=== PATIENT | male | born 1945 | race Caucasian/White ===

== ENCOUNTER → 2019-06-22 | Outpatient (CLI) | payer SELFPAY | PROVIDERS: Family Provider Internal Medicine; Visit Provider Urology | DX: Z87.442 Personal history of urinary calculi (principal); N20.1 Calculus of ureter | CPT/HCPCS: 74018 ==

== ENCOUNTER 2019-07-16 11:32 | Day surgery (SDC) | payer OTHER, SELFPAY ==
[2019-07-15 11:45] VITALS: BMI 43.0
--- NOTE | 2019-07-15 11:52 | ECG_ITS ---
Measurements Intervals [place] Rate: 69 P: 54 WA: 173 QRS: -24 QRSD: 108 T: 6 QT: 394 QTc: 424 SINUS RHYTHM BORDERLINE LEFT AXIS DEVIATION [QRS AXIS < -20] NONSPECIFIC ST & T-WAVE ABNORMALITY Compared to ECG 01/20/2019 16:44:49 T-wave abnormality now present Electronically Signed On 07-15-2019 15:30:18 WELD LAY OUT WORKER by Kyle Álvarez M.D. [email or web address]
--- NOTE | 2019-07-15 12:15 | ANES.PREANES ---
Pre-Anesthetic Assessment Pre-Anesthetic Assessment: Height/Weight: Height 1.7 m Weight 124.738 kg Preop Diagnosis: Obstructing left renal calculus Proposed Procedure: Operation Date: 07/16/19 13:00 Proposed Procedures p ESWL 14526 N20.0(Not Applicable) - Jorge Iglesias MD Social: Packs per day: 2 Pack years: 30 Comment: quit 40 Exam: Pre-Anes Outpt Exam: alert, oriented x 3, clear to auscultation bilaterally and regular rate & rhythm Airway: Submandibular: WNL Cervical ROM: WNL MP: 2 Dentition: False Pulmonary: Pulmonary: COPD Comments: marked BAUTISTA Home 02 @ 2lpm for years ERUM with CPAP rx'd for years CV/HEM: CV/HEM: CAD and HTN Comments: CABG '15 Rx'd x 5 y CHF : Comments: stones GI: GI: GERD Metabolic: Comments: rx'd 5y, does not follow Data Anesthesia Cardiac Studies: No Data to Display
[2019-07-16] VITALS (8 sets, daily range): BP systolic 133–154; BP diastolic 70–90; PULSE 56–74; RESP 14–18; TEMP 36.4–36.7; O2SAT 91–95
--- NOTE | 2019-07-16 11:14 | XR_ITS ---
WS: [id number] ABDOMEN: SUPINE FILM HISTORY: kidney stone COMPARISON: 06/22/2019 and 06/17/2019 Normal bowel gas pattern. Advanced degenerative changes in the spine. Bridging marginal osteophytes a nd disc space narrowing. Mild bilateral SI joint and hip joint disease. Right kidney: No renal or ureteral stone identified. Left kidney: No renal or ureteral stone identified. Previously described renal stone at the LEFT rosa l pelvis is not identified radiographically. XR/XR KUB [id number] IMPRESSION: No renal or ureteral calcifications identified radiographically.
[2019-07-16] MEDS: sodium chloride 0.9% 1,000 ML 30 ML IV (12:20)
[2019-07-16 12:46] LABS: Glucose Point of Care 132 mg/dL (70-110)
--- NOTE | 2019-07-16 12:55 | ANES.PREANES ---
Pre-Anesthetic Assessment Pre-Anesthetic Assessment: Height/Weight: Height 1.7 m Weight 124.738 kg Temp Pulse Resp BP Pulse Ox 97.5 F L 74 16 154/90 93 07/16/19 12:01 07/16/19 12:01 07/16/19 12:01 07/16/19 12:01 07/16/19 12:01 Preop Diagnosis: Obstructing left renal calculus Proposed Procedure: Operation Date: 07/16/19 13:00 Proposed Procedures p ESWL 03236 N20.0(Not Applicable) - Jorge Iglesias MD Last intake: Intake Last Liquid Date 07/16/19 Last Liquid Time 05:30 Last Solid Date 07/15/19 Last Solid Time 18:00 Social: Social History: No alcohol and No tobacco Exam: Pre-Anes Outpt Exam: alert, oriented x 3, clear to auscultation bilaterally and regular rate & rhythm Airway: Submandibular: WNL Cervical ROM: WNL MP: 3 Dentition: Full History/ROS: No significant history except as noted Pulmonary: Pulmonary: COPD, BAUTISTA, Sleep apnea and SOB CV/HEM: CV/HEM: CAD, CHF, HTN and OR : Comments: kidney stones Hepatic: Hepatic: None reported GI: GI: GERD (occ) Metabolic: Metabolic: DM, Hyperlipidemia and Morbid obesity Musc/skel: Musc/skel: OA/DJD Neuropsych: Neuropsych: Neuropathy (feet and hands) Anesthetic Plan: ASA status: IV Anesthesia: Anesthesia Evaluation and General Risk of > 500 ml blood loss (7ml/kg in children): No Meds/Allergies Current Medications: Current Medications Generic Name Dose Route Start Last Admin Trade Name Freq PRN Reason Stop Dose Admin Sodium Chloride 1,000 mls @ 30 ml s/hr 07/16/19 11:30 07/16/19 12:20 Sodium Chloride 0.9% IV 07/17/19 11:29 30 mls/hr .Q24H VIRGIL Administration PFSH Anesthesia PFSH: Medical History Congestive heart failure (Acute) COPD (chronic obstructive pulmonary disease) (Acute) Diabetes type 2, uncontrolled (Acute) High cholesterol (Acute) History of kidney stones (Acute) Hx of chest wall injury (Acute) Neuropathy (Acute) On home O2 (Acute) Sleep apnea (Acute) Surgical History History of quadruple bypass (Acute) Hx of lithotripsy (Acute) Data Anesthesia Other Labs: Laboratory Results - last 48 hr 07/16/19 12:12 POC Glucose 132 Cardiac Studies: No Data to Display
--- NOTE | 2019-07-16 13:36 | PM.HPUD ---
H&P update H&P Update: DATE OF SURGERY/PROCEDURE: 07/16/19 DATE H&P PERFORMED: 06/22/19 PLANNED PROCEDURE: Operation Date: 07/16/19 13:00 Proposed Procedures p ESWL 42243 N20.0(Not Applicable) - Jorge Iglesias MD Full H&P HPI: PRIMARY INDICATION/DIAGNOSIS FOR SURGICAL PROCEDURE: Symptomatic left renal pelvic stone with obstructive changes, radio lucent PLANNED PROCEDURE: Cystoscopy, left retrograde ureteropyelogram, extracorporeal shockwave lithotripsy to left renal pelvic stone, ureteral stent placement HPI: Symptomatic left renal pelvic stone. See H&P for full detail ROS: ROS: No chest pain, shortness of breath, fever or chills. No change in status since H&P. Medications/Allergies: Current Medications: Current Medications Generic Name Dose Route Start Last Admin Trade Name Freq PRN Reason Stop Dose Admin Sodium Chloride 1,000 mls @ 30 ml s/hr 07/16/19 11:30 07/16/19 12:20 Sodium Chloride 0.9% IV 07/17/19 11:29 30 mls/hr .Q24H VIRGIL Administration Perinent History: Medical/Surgical History: Medical History (Updated 07/16/19 @ 12:56 by Ezekiel Boggs MD) Congestive heart failure (Acute) COPD (chronic obstructive pulmonary disease) (Acute) Diabetes type 2, uncontrolled (Acute) High cholesterol (Acute) History of kidney stones (Acute) Hx of chest wall injury (Acute) Neuropathy (Acute) On home O2 (Acute) Sleep apnea (Acute) Pertinent Exam Findings: PHYSICAL EXAM: alert, oriented x 3 and clear to auscultation bilaterally (Unlabored respiration.)
[2019-07-16] MEDS: levofloxacin-dextrose 5 % 500 MG/100 ML PREMIX 100 MG IV (13:40)
--- NOTE | 2019-07-16 13:40 | PM.OP ---
Operative Report Date of procedure: 07/16/19 Pre-op Diagnosis: Obstructing left renal calculus Post-op diagnosis: same Procedure Done: Cystoscopy, left retrograde ureteropyelogram, extracorporeal shockwave lithotripsy to left renal calculus, left ureteral stent placement Implants: Left ureteral stent Pathology: none sent Surgeon: Jorge Iglesias Cashier Courtesy Booth: Lithotripsy instructional media services technician: Jorden Caicedo Anesthesia: General Estimated blood loss: None Complications: None Condition: stable Disposition: PACU
[2019-07-16] MEDS: iohexol 300 mg/mL 50 mL Btl (OR ONLY) XX (14:15)
[2019-07-16] MEDS: lidocaine 2% Urojet 20 mL TOPICAL (14:20)
--- NOTE | 2019-07-16 15:57 | P.OP_ITS ---
Operative Report Date of procedure: 07/16/19 Pre-op Diagnosis: Obstructing left renal calculus Pre-op Diagnosis: Panurethral stricture disease impassable without dilation Post-op diagnosis: same Procedure Done: 1. Cystoscopy with urethral dilation 2. Left retrograde ureteropyelogram 3. Extracorporeal shockwave lithotripsy to large uric acid left renal calculus 4. Left ureteral stent placement (7 Turkmen by 26 cm double-pigtail with string attached distally) Implants: Left ureteral stent Specimens removed/disposition: None Pathology: none sent Surgeon: Jorge Iglesias Executive Search Consultant: Lithotripsy restaurant maintenance technician: Jorden Caicedo Anesthesia: General Estimated blood loss: Less than 30 cc Urine output: Not measured Findings: 1. Severe panurethral stricture disease requiring dilation with Amplatz sounds 2. Large left renal pelvic stone with excellent response to 3000 shockwaves 3. Left ureteral stent left indwelling at the completion of the procedure Condition: stable Disposition: PACU Brief History: Ambrose is a very pleasant 73-year-old white male with a history of recurrent urethral stricture disease found to be impassable on multiple occasions without rigorous dilation and history of stones with recent discovery of a large left UPJ obstructing renal calculus. Admitted now for treatment of the stone with anticipation of urethral dilation. Procedure: After routine preoperative evaluation examination and obtaining of informed consent he was taken to the operating suite on 07/15/2019 where general anesthesia was administered without difficulty after appropriate timeout was performed, SCDs confirmed to be functioning, preoperative antibiotics administered, beta-vee protocol confirmed. Prepped and draped in usual sterile fashion in dorsolithotomy position pain careful attention to avoiding pressure points. The 17 Turkmen cystoscope was advanced under videoscopy into the urethra but could only be passed about two th[address] the way up before reaching a level of stricture that could not be manipulated. The 17 Turkmen cystoscope was exchanged for 7 Turkmen offset semirigid ureteroscope which could be advanced although through tightly restrictive strictures into the bladder. The orifices could not be easily identified and for that reason it was decided to dilate the urethra to get a better look with a regular cystoscope. Flexible tip guidewire was advanced through the ureteroscope into the bladder and the scope was removed. The urethra was then dilated with Amplatz renal dilators beginning at 8 Turkmen and advancing to 20 Turkmen. The first 3 dilators 8, 10, and 12 were passed directly over the wire. The remainder were passed over the snake. Each passage was accompanied with fluoroscopy confirming appropriate position over the wire. The 17 Turkmen cystoscope was then advanced over the wire into the bladder through the now well dilated urethra. The ureteral orifices were identified. He did have some small stones in the bladder which were flushed out through the scope. Flexible tip guidewire was advanced up the left ureter easily up into the renal pelvis area and an open ureteral catheter was then advanced over the guidewire after the 17 Turkmen scope was removed. In the area estimated to be the kidney the wire was removed and the open-ended ureteral catheter was left in place for a left retrograde ureteropyelogram which confirmed the stone in the renal pelvis with the catheter just below the UPJ. The stone appeared to be actually quite a bit larger than it had on the CT scan previously. He was taken out of [facility] at that point and placed in supine position with the bed slightly in Trendelenburg position. The shock head was positioned in the anterior position and the stone was easily identified with contrast surrounding it. With the patient in Trendelenburg position shockwave therapy was begun on the proximal aspect of the stone at a rate of 60 which was maintained throughout. A total of 3000 shocks were administered with real-time fluoroscopy utilized for positioning. The stone appeared to break up quite well with some migration of the particles into the upper pole. At the completion of the procedure while I could still see some pieces it was hard to say whether there was any significant large piece remaining. He was then reprepped and draped in the usual sterile fashion in dorsolithotomy position. Flexible tip guidewire was advanced through the open-ended ureteral catheter into the upper pole calyx and the ureteral catheter was removed. The cystoscope was advanced over the guidewire into the bladder for final inspection. There was some small amount of clot in the bladder which was flushed free. The scope was removed. A 7 Turkmen by 26 cm double-pigtail stent was then advanced under fluoroscopic guidance up the left ureter over the guidewire into appropriate position as confirmed via fluoroscopy of the upper and lower urinary tract. The wire was removed and the proximal and distal aspects were seen to curl in appropriate position. Attempt at catheter passage was unsuccessful with a 16 Turkmen straight tip and coud? tip and for that reason the scope was then repassed back into the bladder and a guidewire placed which allowed passage of a 16 Turkmen [place] tip catheter with position confirmed with transient contrast in the balloon followed by withdrawing of the contrast and then placement of saline. Catheter placed to dependent drainage and procedure completed. The string on the distal end of the stent was shortened slightly. PLANS: 1. Maintain Flores catheter until early next week with voiding trial in the clinic 2. Maintain ureteral stent, initiate potassium citrate next week most likely, c onsider maintenance of stent and medical therapy with repeat CT scan at a point in the near future to assess for change.
--- NOTE | 2019-07-16 15:58 | SUR.PHASEI ---
1557 PATIENT TO PACU AT THIS TIME VIA [place]. RR EVEN AND UNLABORED. PLACED ON SIMPLE MASK AT 8L. PETERS CATH NOTED, HATHAWAY COLORED URINE NOTED.
--- NOTE | 2019-07-16 16:25 | SUR.PHASEI ---
1610 [facility] [employer] PATIENT ASSISTED TO BR FOR BM. GAIT STEADY. PATIENT A/OX3. RR EVEN AND UNLABORED. PETERS CATH IN PLACE, DRAINING HATHAWAY COLORED URINE.
== END 2019-07-16 17:30 | disposition home or self-care (01) ==
PROVIDERS: Family Provider Internal Medicine; PCP Internal Medicine; Visit Provider Urology
PROC: (CPT 50590; principal; 2019-07-16 13:00)
PROC: 0TJB8ZZ Inspection of Bladder, Via Natural or Artificial Opening Endoscopic (ICD-10-PCS; CPT 52000; 2019-07-16 13:00)
PROC: (CPT 52356; 2019-07-16 13:00)
PROC: (CPT 50605; 2019-07-16 13:00)
DX: N20.0 Calculus of kidney (principal); J44.9 Chronic obstructive pulmonary disease, unspecified; E11.40 Type 2 diabetes mellitus with diabetic neuropathy, unspecified; G47.30 Sleep apnea, unspecified; Z99.81 Dependence on supplemental oxygen; I11.0 Hypertensive heart disease with heart failure; I50.9 Heart failure, unspecified; I25.10 Atherosclerotic heart disease of native coronary artery without angina pectoris; I25.2 Old myocardial infarction; E78.5 Hyperlipidemia, unspecified; E66.01 Morbid (severe) obesity due to excess calories; Z68.41 Body mass index [BMI] 40.0-44.9, adult; M19.90 Unspecified osteoarthritis, unspecified site; N40.1 Benign prostatic hyperplasia with lower urinary tract symptoms; N13.8 Other obstructive and reflux uropathy; Z87.891 Personal history of nicotine dependence; Z79.891 Long term (current) use of opiate analgesic; Z79.82 Long term (current) use of aspirin; Z79.4 Long term (current) use of insulin; Z95.1 Presence of aortocoronary bypass graft
CPT/HCPCS: 52356; 12345; 36416; 74018; 82962; 93005; 96365; C2625; J0330; J1956; J2405; J2704; J2710; J3010; J3490; J7030

== ENCOUNTER 2019-07-22 13:14 | Day surgery (SDC) | payer OTHER, MEDICARE, SELFPAY ==
[2019-07-21 14:40] VITALS: BMI 43.0
[2019-07-22] VITALS (7 sets, daily range): BP systolic 111–155; BP diastolic 58–107; PULSE 56–73; RESP 14–18; TEMP 36.2–36.4; O2SAT 88–100
--- NOTE | 2019-07-22 | SCC_ITS ---
Procedure Done: Cystoscopy, removal of left ureteral stent Left ureterorenoscopy, stone manipulation, 60.1 seconds of fluoroscopic guidance, for a cumulative dose of 34.71 mGy, was provided to Dr. Iglesias by the radiology department. C-arm images of the abdomen were saved for the patient's permanent record. [facility]
[2019-07-22 13:55] LABS: Glucose Point of Care 125 mg/dL (70-110)
--- NOTE | 2019-07-22 14:00 | ANES.PREANES ---
Pre-Anesthetic Assessment Pre-Anesthetic Assessment: Height/Weight: Height 1.7 m Weight 124.738 kg Temp Pulse Resp BP Pulse Ox 97.6 F 73 18 155/107 88 L 07/22/19 13:42 07/22/19 13:42 07/22/19 13:42 07/22/19 13:42 07/22/19 13:42 Preop Diagnosis: Left renal calculus Proposed Procedure: Operation Date: 07/22/19 14:45 Proposed Procedures p Cystoscopy 53674 82913 N20.0(Not Applicable) - MD re Mejia Ureteral Stent Removal(Left) - MD re Mejia Ureteroscopy(Not Applicable) - MD re Mejia poss Laser Lithotripsy(Not Applicable) - MD re Mejia Ureteral Stent Placement(Not Applicable) - Jorge Iglesias MD Last intake: Intake Last Liquid Date 07/22/19 Last Liquid Time 06:00 Last Solid Date 07/21/19 Last Solid Time 18:00 Social: Social History: No alcohol and No tobacco Exam: Pre-Anes Outpt Exam: alert, oriented x 3, clear to auscultation bilaterally and regular rate & rhythm Airway: Submandibular: WNL Cervical ROM: WNL MP: 3 Dentition: Full History/ROS: No significant history except as noted Pulmonary: Pulmonary: BAUTISTA and Sleep apnea CV/HEM: CV/HEM: CHF and HTN : Comments: KIDNEY STONES Hepatic: Hepatic: None reported GI: GI: None reported Metabolic: Metabolic: DM, Hyperlipidemia and Morbid obesity Musc/skel: Musc/skel: None reported Neuropsych: Neuropsych: None reported Anesthetic Plan: ASA status: III Anesthesia: Anesthesia Evaluation and General Risk of > 500 ml blood loss (7ml/kg in children): No PFSH Anesthesia PFSH: Social History Smoking and tobacco status: former smoker Alcohol intake: former Marital status: Current occupational status: retired Current gender identity: Male Data Anesthesia Other Labs: Laboratory Results - last 48 hr 07/22/19 13:52 POC Glucose 125 Cardiac Studies: No Data to Display
[2019-07-22] MEDS: sodium chloride 0.9% 1,000 ML 30 ML IV (14:44)
--- NOTE | 2019-07-22 14:50 | SC_ITS ---
WS: [id number] C-arm fluoroscopy in the OR for ureteral stent exchange, 07/22/2019 Clinical Data: stent exchange, stone Comparison: None. Fluoroscopy time: 60.1 seconds Findings: The ureteral stent extending from the left renal pelvis to the bladder is in good position. SC/C-arm FL for Urology Impression: Left ureteral stent successfully replaced.
--- NOTE | 2019-07-22 14:59 | PM.HPUD ---
H&P update H&P Update: DATE OF SURGERY/PROCEDURE: 07/22/19 DATE H&P PERFORMED: 07/19/19 PLANNED PROCEDURE: Operation Date: 07/22/19 14:45 Proposed Procedures p Cystoscopy 07861 91423 N20.0(Not Applicable) - MD re Mejia Ureteral Stent Removal(Left) - MD re Mejia Ureteroscopy(Not Applicable) - MD re Mejia poss Laser Lithotripsy(Not Applicable) - MD re Mejia Ureteral Stent Placement(Not Applicable) - Jorge Iglesias MD Full H&P Medications/Allergies: Current Medications: Current Medications Generic Name Dose Route Start Last Admin Trade Name Freq PRN Reason Stop Dose Admin Sodium Chloride 1,000 mls @ 30 ml s/hr 07/22/19 13:30 07/22/19 14:44 Sodium Chloride 0.9% IV 07/23/19 13:29 30 mls/hr .Q24H VIRGIL Administration Perinent History: Medical/Surgical History: Medical History (Updated 07/19/19 @ 12:21 by Jorge Iglesias MD) Congestive heart failure (Acute) COPD (chronic obstructive pulmonary disease) (Acute) Diabetes type 2, uncontrolled (Acute) High cholesterol (Acute) History of kidney stones (Acute) Hx of chest wall injury (Acute) Neuropathy (Acute) On home O2 (Acute) Sleep apnea (Acute) Urethral stricture, postoperative (Chronic) Severe panurethral stricture disease requiring multiple dilations and endoscopic treatment. Complicating treatment of stones Uric acid urolithiasis (Chronic) Family History: Family History (Updated 07/19/19 @ 08:58 by Lucita Good LPN) Mother , at age 76 COPD (chronic obstructive pulmonary disease) Father , at age 68-aortic aneurysm No problems noted. Social History: Social History Smoking and tobacco status: former smoker Alcohol intake: former Marital status: Current occupational status: retired Current gender identity: Male
--- NOTE | 2019-07-22 15:15 | PM.HPUD ---
H&P update H&P Update: DATE OF SURGERY/PROCEDURE: 07/22/19 DATE H&P PERFORMED: 07/19/19 PLANNED PROCEDURE: Operation Date: 07/22/19 14:45 Proposed Procedures p Cystoscopy 77082 [id number] N20.0(Not Applicable) - MD re Mejia Ureteral Stent Removal(Left) - MD re Mejia Ureteroscopy(Not Applicable) - MD re Mejia poss Laser Lithotripsy(Not Applicable) - MD re Mejia Ureteral Stent Placement(Not Applicable) - Jorge Iglesias MD Conscious Sedation: ADDITIONAL INFORMATION: No change in status from preop visit. Full H&P Medications/Allergies: Current Medications: Current Medications Generic Name Dose Route Start Last Admin Trade Name Freq PRN Reason Stop Dose Admin Sodium Chloride 1,000 mls @ 30 ml s/hr 07/22/19 13:30 07/22/19 14:44 Sodium Chloride 0.9% IV 07/23/19 13:29 30 mls/hr .Q24H VIRGIL Administration Perinent History: Medical/Surgical History: Medical History (Updated 07/19/19 @ 12:21 by Jorge Iglesias MD) Congestive heart failure (Acute) COPD (chronic obstructive pulmonary disease) (Acute) Diabetes type 2, uncontrolled (Acute) High cholesterol (Acute) History of kidney stones (Acute) Hx of chest wall injury (Acute) Neuropathy (Acute) On home O2 (Acute) Sleep apnea (Acute) Urethral stricture, postoperative (Chronic) Severe panurethral stricture disease requiring multiple dilations and endoscopic treatment. Complicating treatment of stones Uric acid urolithiasis (Chronic) Family History: Family History (Updated 07/19/19 @ 08:58 by Lucita Good LPN) Mother , at age 76 COPD (chronic obstructive pulmonary disease) Father , at age 68-aortic aneurysm No problems noted. Social History: Social History Smoking and tobacco status: former smoker Alcohol intake: former Marital status: Current occupational status: retired Current gender identity: Male
--- NOTE | 2019-07-22 15:16 | PM.OP ---
Operative Report Date of procedure: July 22, 2019 Pre-op Diagnosis: Left renal calculus, severe panurethral stricture disease Post-op diagnosis: same Procedure Done: Cystoscopy, removal of left ureteral stent Left ureterorenoscopy, stone manipulation, Implants: Left ureteral stent Pathology: Stone fragments Surgeon: Jorge Iglesias Anesthesia: General Estimated blood loss: Minimal Condition: stable Disposition: PACU Brief History: Ambrose is a very pleasant 73-year-old white male with a complex urologic history including severe pain urethral stricture disease with multiple dilations required in the past due to severe scarring. He also has a history of urolithiasis with multiple surgical interventions previously. Recently was found to have a large radiolucent stone in the left renal pelvis and underwent left ureteral stent placement and ESWL. This was severely complicated by his pain urethral stricture disease which required extensive dilation prior to being able to even access the bladder. The stone appeared to show good change. Postoperatively he was complaining of significant discomfort related to the urethral catheter. We reviewed that the stone would likely require additional treatment with ESWL based on its original size and that the urethral stricture if the catheter was removed prior to that time might scarred out enough to require further dilation again. An alternative approach was offered him and this included endoscopic evaluation of the remaining stone fragments but with possible laser lithotripsy. Because of that being done within a week of his initial treatment it was decided to leave the catheter in for further passive dilation of the urethra and making the access to the bladder and left ureter much easier. He is admitted now for that procedure. Procedure: After routine preoperative evaluation examination and obtaining of informed consent he was taken to the operating suite on 07/22/2019 where general anesthesia was administered without difficulty after appropriate timeout was performed, SCDs confirmed to be functioning, preoperative antibiotics administered, beta-vee protocol confirmed. Prepped and draped in usual sterile fashion in dorsolithotomy position pain careful attention to avoiding pressure points. 21 Panamanian cystoscope with 30 degree lens was introduced into the urethral meatus and advanced into the bladder videoscopy. The urethra was much much better as far as a conduit and a much better healed following prior dilation and passive dilation and healing with a catheter in place. A flexible tip guidewire was advanced next to the stent easily up the ureter curling in the area of the upper pole calyx. The stent was then removed with the string and then a second guidewire was advanced up the ureter. One was secured to the drapes as a safety wire and the other was utilized as a working wire. A 38 cm ureteral access sheath was then advanced over the working wire easily up the ureter to the mid/proximal ureter. The flexible ureteroscope was then advanced over the guidewire up the sheath. The renal pelvis was irrigated for better visualization. There were many many stone fragments none of them quite large but several too large to pass. The 275 ?m homing laser fiber was then utilized to fragment the stones into pieces small enough that should pass. Basket was utilized to remove the bulk of these. On final inspection there were no significant fragments identified. There was no severe active bleeding. The renal pelvic and calyceal mucosa looked healthy. The ureter was inspected as the scope was withdrawn. Bladder was irrigated. Cystoscope was then backloaded over the guidewire and a 7 Panamanian by 26 cm double-pigtail stent with string attached on the distal aspect was passed without difficulty and appropriate position as confirmed via fluoroscopy and cystoscopy. The string was shortened. Because of the excellent condition of the urethra no Flores catheter was left in place. Bladder was drained and the procedure completed. He tolerated procedure well without complications and was awakened in the operating room returned to the recovery room in stable condition. PLANS: 1. Continue potassium citrate for dissolution therapy review remaining uric acid fragments 2. Prescription for hydrocodone/APAP for postoperative discomfort 3. Follow-up in a couple weeks with consideration for stent removal. Further passive dilation will make passage of the remaining fragments much more likely
[2019-07-22] MEDS: levofloxacin-dextrose 5 % 500 MG/100 ML PREMIX 100 MG IV (15:18)
--- NOTE | 2019-07-22 17:49 | SUR.PHASEI ---
PT AWAKE ALERT TALKATIVE TO OPS VSS
[2019-07-27 15:52] LABS: Stone Source BLADDER STONES
== END 2019-07-22 19:08 | disposition home or self-care (01) ==
PROVIDERS: Family Provider Internal Medicine; PCP Internal Medicine; Visit Provider Urology
PROC: 0TJB8ZZ Inspection of Bladder, Via Natural or Artificial Opening Endoscopic (ICD-10-PCS; CPT 52000; principal; 2019-07-22 14:45)
PROC: (CPT 52310; 2019-07-22 14:45)
PROC: 0TJ98ZZ Inspection of Ureter, Via Natural or Artificial Opening Endoscopic (ICD-10-PCS; CPT 52351; 2019-07-22 14:45)
PROC: (CPT 52332; 2019-07-22 14:45)
PROC: (CPT 50605; 2019-07-22 14:45)
DX: N20.0 Calculus of kidney (principal); I50.9 Heart failure, unspecified; J44.9 Chronic obstructive pulmonary disease, unspecified; Z99.81 Dependence on supplemental oxygen; Z87.891 Personal history of nicotine dependence; Z79.891 Long term (current) use of opiate analgesic; Z79.4 Long term (current) use of insulin; E11.40 Type 2 diabetes mellitus with diabetic neuropathy, unspecified
CPT/HCPCS: 52332; 52352; 12345; 36416; 76000; 82365; 82962; 88300; C2625; J0330; J1885; J1956; J2001; J2405; J2704; J3010; J3490; J7030

== ENCOUNTER 2019-07-30 08:47 | Outpatient (CLI) | payer OTHER, SELFPAY ==
--- NOTE | 2019-07-30 09:00 | XR_ITS ---
WS: [id number] KUB, 07/30/2019 Clinical Data: URIC ACID UROLITHIASIS Comparison: C-arm fluoroscopy view of the left side of the abdomen, 07/22/2019. Findings: The left ureteral stent is in good position. The proximal portion appears to be curled in the left re nal pelvis and the distal portion is within the bladder. XR/XR KUB [id number] Impression: Satisfactory position of left ureteral stent.
== END 2019-07-30 08:48 | disposition home or self-care (01) ==
PROVIDERS: Family Provider Internal Medicine; PCP Internal Medicine; Visit Provider Urology
DX: N20.9 Urinary calculus, unspecified (principal); Z96.0 Presence of urogenital implants
CPT/HCPCS: 74018; 81001

== ENCOUNTER 2019-08-05 13:51 | Outpatient (CLI) | payer MEDICARE, SELFPAY ==
--- NOTE | 2019-08-05 | XR_ITS ---
WS: [id number] FINGER RIGHT TECHNIQUE: 3 views of the right finger CLINICAL INFORMATION: BILATERAL THUMB PAIN COMPARISON: None. FINDINGS: Right thumb is normal in appearance. No acute fractures. Normal anatomic alignment. Normal soft tissu es. XR/XR finger RT min 2V [id number] IMPRESSION: Normal right thumb.
--- NOTE | 2019-08-05 | XR_ITS ---
WS: [id number] FINGER LEFT TECHNIQUE: 3 views of the left First finger CLINICAL INFORMATION: BILATERAL THUMB PAIN COMPARISON: None. FINDINGS: Left thumb is normal in appearance. No acute fractures. Normal soft tissues. Normal anatomic alignmen t. Mild degenerative arthritis first CMC. XR/XR finger LT min 2V [id number] IMPRESSION: Normal left thumb.
== END 2019-08-05 13:52 | disposition home or self-care (01) ==
LOC: RADOUTREAD 08-06 07:46
PROVIDERS: Family Provider Internal Medicine; PCP Internal Medicine; Visit Provider Nurse Practitioner
DX: Z76.89 Persons encountering health services in other specified circumstances (principal)

== ENCOUNTER 2019-09-13 07:53 | Outpatient (CLI) | payer OTHER, SELFPAY ==
[2019-09-13 08:40] LABS: Blood Urea Nitrogen 9 mg/dL (8-23)
[2019-09-13] MEDS: iohexol 300 mg/mL 100 mL Btl IV (08:50)
--- NOTE | 2019-09-13 09:30 | CT_ITS ---
WS: [id number] CT ABDOMEN PELVIS TECHNIQUE: Noncontrast CT of the abdomen and contrast-enhanced CT of the abdomen and pelvis with lion nal and sagittal reformatted images. CLINICAL INFORMATION: h/o kidney stone COMPARISON: June 17, 2019 DLP: 3104.[address] scans at [facility] use at least one of these dose optimization techniques: automat ed exposure control; mA and/or kV adjustment per patient size (includes targeted exams where dose is matched to clinical indication); or iterative reconstruction. FINDINGS: Previously described obstructing calculus at the left UVJ has resolved. No hydronephrosis. Normal arelis ateral renal parenchymal enhancement. 3.2 cm right renal cyst is unchanged. No obstructing renal or u reteral calculi. Adrenal glands are normal. Diffuse fatty infiltration of the liver. Normal gallbladd er. Mild fatty atrophy of the pancreas. Mild aortic calcification. Enlarged heterogeneous prostate wi th nodularity measuring 5.6 x 5.6 cm. Sigmoid diverticulosis. No evidence of acute diverticulitis. No evidence of small or large bowel obst ruction. No periaortic or inguinal lymphadenopathy. Lung bases are well aerated. Chronic right pond tender ior rib fracture. Mild lumbar curve. Small abdominal aortic aneurysm measuring 2.[address]/CT abdomen pelvis wo/w [id number] IMPRESSION: 1. No obstructing renal or ureteral calculi. Previously described left UPJ steve culus has resolved. 2. Stable 3 cm right renal cyst. 3. Sigmoid diverticulosis. No evidence of acute diverticulitis. 4. Heterogeneous enlarged nodular prostate measuring 5.5 x 5.5 CM suspicious f or neoplasia. Correlation with PSA. 5. Small aneurysmal infrarenal abdominal aorta measuring 2.5 x 2.3 cm
== END 2019-09-13 07:54 | disposition home or self-care (01) ==
LOC: RAD 07:55
PROVIDERS: Family Provider Internal Medicine; PCP Internal Medicine; Visit Provider Urology
DX: N20.0 Calculus of kidney (principal); N28.1 Cyst of kidney, acquired; K57.90 Diverticulosis of intestine, part unspecified, without perforation or abscess without bleeding; N40.0 Benign prostatic hyperplasia without lower urinary tract symptoms; I71.4 Abdominal aortic aneurysm, without rupture
CPT/HCPCS: 36415; 74178; 82565; 84520

== ENCOUNTER → 2020-01-04 08:38 | Outpatient (BNVA) | payer OTHER, SELFPAY | PROVIDERS: Family Provider Internal Medicine; PCP Internal Medicine; Visit Provider Internal Medicine Cardiovascular Disease | DX: I25.10 Atherosclerotic heart disease of native coronary artery without angina pectoris (principal); R07.9 Chest pain, unspecified | CPT/HCPCS: 80048; 85025; 87635 ==

== ENCOUNTER 2020-01-10 10:07 | Observation (INO) | payer OTHER, SELFPAY ==
[2020-01-10] VITALS (17 sets, daily range): BP systolic 128–166; BP diastolic 69–101; PULSE 48–59; RESP 14–21; TEMP 37.2; O2SAT 88–98; BMI 43.7
--- NOTE | 2020-01-10 08:30 | XACV_ITS ---
Ht: 170 cm Wt: 127 kg BSA: 2.51 m2 Gender: Male : 1945 Any Known Allergies: Penicillins Exam Priority: Routine Procedure(s): Procedure Description: Diagnostic procedure Procedure Description: Left Heart Catheterization Diagnostic Cath Status: Elective Diagnostic Findings LM has 0% stenosis. CX has 0% stenosis. pLAD: Severe 100% stenosis, SO: 0 flow. Ramus: Severe 90% stenosis, SO: 2 flow. pRCA to mRCA: Severe 100% stenosis, SO: 0 flow. Two grafts visualized. SVG to 1st Diag: patent. SVG to RPAV: patent. Coronary angiography shows right dominance. Conclusions There is severe coronary artery disease with three vessel disease. All grafts patent. Patient has prior CABG. For worsening of chest pain and anginal-like symptom patient despite of optimization of medicine underwent left heart cath with history of CABG 6 to 7 years ago. He was found to have chronically occluded proximal LAD and chronically occluded RCA, ramus intermedius is small caliber and size vessel which was 90% stenotic in the proximal section.BOSWELL is atretic and not usedSVG to RCA was patentSVG to diagonal and LAD was patent. Recommendations Continue current medical management and risk factor modification. Diagnostic RX Recommendation: medical therapy and/or counseling Pressures Phase:Rest AO : 168 mmHg / 85 mmHg ( 116 mmHg ) @ 3:55:00 AM Clinical Evaluation EBL: 5mL-10mL Procedural Details Procedure Consent Obtained. Admit Source: Out Patient. Pre-Procedure Time Out. Identified patient by full name and date of as verbalized by the patient/guarantor. Does the consent match the physician's order: Yes. Accurate & Complete Informed Consent: Yes. Inpatient/Outpatient History & Physical on Chart: Yes. If H&P is completed, is and addenduem needed: N/A; If yes, is the addendum complete: N/A. Visualize and Verify Site with Patient/Guarantor: N/A. Relevant Radiology Images available: N/A. Pre-op teaching completed and patient verbalized understanding. The risks, benefits, and alternatives of sedation and/or procedure were discussed by physician. The patient agrees to continue. Procedure started. Correct patient, site and procedure confirmed by cath team. PERRLA. 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 Lungs clear x 5 lobes. IV Site on Arrival: 18 gauge in the right anticubital. Pre Procedural Pulses: bilateral dorsalis pedis was 3+. Pre Procedural Pulses: bilateral posterior tibial was 1+. Pre Procedural Pulses: bilateral radial was 2+. Oxygen started at 2liters/min via nasal canula. bilateral groins was prepped with chloroprep then draped in the usual sterile fashion. Baseline sample Acquired. HR: 39 BPM. Physician notified. family updated. saline bolus finished. Physician arrived. Physician scrubbed in. Immediate Pre-Procedure Time Out. Correct Patient: Yes; Correct Procedure: Yes; Correct Site: Yes; Correct Patient Position: Yes; Correct Supplies: Yes; Dried Flammable Prep: Yes; Blood Products Available: N/A;. Lidocaine 1% infiltrated to the right groin. Arterial access obtained with micropuncture set. A 5 bermudian JL4 catheter in over wire. Multiple views taken of left coronary artery. Catheter out. A 5 bermudian JR4 catheter in over wire. Multiple views taken of right coronary artery. SVG's to RCA visualized and patent. KVO. BOSWELL Ateratic. SVG's to Diaganol visualized and patent. Dr. Álvarez notified. Dr. Álvarez arrived. Monisha checking results. Sheath(s) sutured into position with 2-0 silk and sterile 4x4's and Op-site applied over the site. No oozing or signs and symptoms of hematoma noted. Post Procedure: Pulses reassessed and unchanged. PERRLA. 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 No VTE prophylaxis required. Medication's Wasted: Lidocaine 1% = 10 mL. Medication's Wasted: Heparin = 1000 units. Total IV fluids: 274 mL. Contrast type used: Visipaque 320 mgI/mL, 500 mL bottle. Contrast Material : Visipaque 487 ml. Complications: none. Estimated blood loss: 5mL-10mL. Procedure completed. Vital chart was stopped. A Suture was successful obtaining hemostatsis at the Right Femoral artery insertion site. Patient transferred by bed to 1st floor. [facility] Clinical Fraility Score: 3: Managing Well. Coal Mine Inspector Indications: Worsening Angina. Coal Mine Inspector Indications: Stable Known CAD/ Cabbage. Chest Pain Symptom Assessment: Atypical Angina. Cardiovascular Instability: No,. Post-op diagnosis: multivessel coronary disease, occluded BOSWELL, patent SVG to Diag/LAD, patent SVG to RCA. Site: Right Femoral artery Sheath Size: 6 Fr Hemostasis Method: Suture Hemostasis Success: Successful Procedure Medications Start: 8:27 AM Stop: 8:27 AM Medication: 0.9% Saline Amount: 200 ml Route: I.V. bolus Start: 8:33 AM Stop: 8:33 AM Medication: Benadryl Amount: 25 mg Route: I.V. Start: 8:39 AM Stop: 8:39 AM Medication: Versed Amount: 1 mg Route: I.V. Start: 8:39 AM Stop: 8:39 AM Medication: Fentanyl Amount: 50 mcg Route: I.V. Start: 8:44 AM Stop: 8:44 AM Medication: Versed Amount: 1 mg Route: I.V. Start: 8:52 AM Stop: 8:52 AM Medication: Versed Amount: 1 mg Route: I.V. Start: 9:02 AM Stop: 9:02 AM Medication: Versed Amount: 1 mg Route: I.V. Start: 9:18 AM Stop: 9:18 AM Medication: Versed Amount: 1 mg Route: I.V. Start: 9:18 AM Stop: 9:18 AM Medication: Fentanyl Amount: 25 mcg Route: I.V. Start: 9:34 AM Stop: 9:34 AM Medication: Versed 1 mg and Fentanyl 25 mcg Route: I.V. Start: 9:37 AM Stop: 9:37 AM Medication: Versed Amount: 1 mg Route: I.V. I, the attending physician, have reviewed and verified all procedure medications. Yes, all medications given per verbal order History/Risk Factors Hypertension: Yes Dyslipidemia: Yes Diabetic Therapy: Insulin Peripheral Arterial Disease (PAD): No Myocardial Infarction (TX): No Obesity: Yes Renal Disease: Yes Tobacco Use: Former Prior Interventions PCI: No CABG: Yes Valve Surgery: No Report Signatures Finalized by:Stefan Kaur MD on 01/20/2020 3:03:30 AM
[2020-01-10] MEDS: sodium chloride 0.9% 1,000 ML 150 ML IV (10:00)
--- NOTE | 2020-01-10 10:09 | W.PM.OPSUD ---
Surgery/Procedure H&P Update DATE OF PROCEDURE: January 10, 2020 DATE H&P PERFORMED: 06/30/19 H&P UPDATE INFORMATION: I have reviewed H&P completed within last 30 days, I have examined patient prior to procedure and No changes to prior documentation PREOP DIAGNOSIS: Left renal calculus, severe panurethral stricture disease PLANNED PROCEDURE: Operation Date: 01/10/20 08:30 Proposed Procedures p Cardiac Catheterization(Left) - Stefan Kaur MD PATIENT REASSESSED PRIOR TO SEDATION, WITH NO CHANGE NOTED: Yes PHYSICAL EXAM: alert, oriented x 3, clear to auscultation bilaterally and regular rate & rhythm AIRWAY EVAL/ANESTHESIA PLAN: ASA III, Risks, benefits & alternatives of sedation and/or procedure discussed and Patient agrees to continue as planned ADDITIONAL INFORMATION: Patient understand the risk of contrast-induced nephropathy explained in detail by me. He understand the risk of short and long-term dialysis. Continue IV fluid 100 mL/h after 200 mL of bolus for the next 7 to 8 hours.
[2020-01-10] MEDS: fentaNYL 50 mcg/mL INJ 2mL IVP (10:17)
--- NOTE | 2020-01-10 10:25 | PC.NURSE ---
Sheath Removal Explained procedure to pt. Pre medicated pt with Fentanyl as standing order prior to sheath removal. Right femoral pulse is palpable. Applied pressure and 6 Fr sheath removed in right femoral artery. Manual pressure held for 20 mins. hemostasis achieved. No hematoma, swelling or bleeding noted. Dopplerable DP and PT pulses. Instructed pt on bedrest for 6 hrs, HOB not greater than 30 degrees. No raising of legs. To call nurse if any unusual pain, pressure or wetness noted in groin. Pt verbalizes understanding. Call light within reach.
[2020-01-10 11:53] LABS: Glucose Point of Care 121 mg/dL (70-110)
--- NOTE | 2020-01-10 12:04 | PC.NURSE ---
Patient stood up. 1 hour post sheath Pull patient re-educated on strict bed rest for 6 hours post sheath pull site remains Clean, Dry and intact will continue to monitor
--- NOTE | 2020-01-10 12:05 | PC.NURSE ---
Patient got OOB and was standing next to the bed to go to the bathroom. Patient assisted back into bed by nursing staff. Cath insertion site reassessed. Dressing CDI. Incision asymptomatic. Patient reeducated on activity restrictions. Bed alarm set. Nurse to continue to monitor.
--- NOTE | 2020-01-10 12:16 | USCV_ITS ---
Ambrose Villa Age: 74 Gender: M : 1945 Exam Date: 01/10/2020 16:51 Ordering Phys: Stefan Kaur MD ([email or web address]) Technologist: Soledad Crandall Exam Location: [facility] – [place] Indication: CHEST PAIN BP: 171 / 86 HR: 55 Rhythm: Sinus Technical Quality: Technically difficult study MEASUREMENTS (Male / Female) Normal Values 2D ECHO LV Diastolic Diameter PLAX 4.6 cm 4.2 - 5.9 / 3.9 - 5.3 cm LV Systolic Diameter PLAX 3.6 cm LV Chamber Size 3.8 cm IVS Diastolic Thickness 1.2 cm 0.6 - 1.0 / 0.6 - 0.9 cm IVS Systolic Thickness 1.9 cm LVPW Diastolic Thickness 1.1 cm 0.6 - 1.0 / 0.6 - 0.9 cm LVPW Systolic Thickness 1.5 cm RV Chamber Size 2.6 cm LVOT Diameter 2.0 cm LV Ejection Fraction 2D Teich 42.4 % LV Ejection Fraction MOD 2C 16.8 % LV Ejection Fraction 2C AL 19.6 % LA Diameter 4.4 cm LA Width 3.1 cm LA Height 4.6 cm RA Width 3.1 cm RA Height 4.3 cm Aorta at Sinotubular Diameter 3.1 cm M-MODE LV Diastolic Diameter MM 4.4 cm 4.2 - 5.9 / 3.9 - 5.3 cm LV Systolic Diameter MM 2.8 cm LV Ejection Fraction MM Teich 66.7 % IVS Diastolic Thickness MM 1.2 cm 0.6 - 1.0 / 0.6 - 0.9 cm IVS Systolic Thickness MM 2.2 cm LVPW Diastolic Thickness MM 1.5 cm 0.6 - 1.0 / 0.6 - 0.9 cm LVPW Systolic Thickness MM 1.6 cm RV Diastolic Diameter MM 3.0 cm Aortic Annulus Diameter 2.7 cm LA Ao Ratio MM 1.7 MV E Point Septal Separation 0.9 cm DOPPLER AV Peak Velocity 120.0 cm/s LVOT Peak Velocity 64.0 cm/s AV Area Cont Eq vti 1.8 cm squared AV Area Cont Eq pk 1.7 cm squared MV Area PHT 4.5 cm squared Mitral E to A Ratio 1.0 MV E' Velocity 8.0 cm/s Mitral E to MV E' Ratio 11.8 Mitral E to LV E' Lateral Ratio 9.0 Mitral E to LV E' Septal Ratio 17.2 TR Peak Velocity 162.0 cm/s TR Peak Gradient 10.5 mmHg TR Mean Velocity 119.9 cm/s TR Mean Gradient 6.4 mmHg TR Velocity Time Integral 40.5 cm TV Peak E Velocity 42.0 cm/s Right Atrial Pressure 3.0 mmHg Pulmonary Artery Systolic Pressu 13.5 mmHg PV Peak Velocity 40.0 cm/s RV Acceleration Time 0.1 s RV Ejection Time 0.3 s RV AcT/ET 0.3 FINDINGS Left Ventricle Normal left ventricular cavity size. Low normal left ventricular systolic function. No regional wall motion abnormalities. Left ventricular ejection fraction is estimated at 55 %. Grade I/IV diastolic dysfunction (abnormal relaxation filling pattern), normal to mildly elevated filling pressures. Right Ventricle The right ventricle is normal in size and function. Right Atrium The right atrium is normal in size. Left Atrium The left atrium is normal in size. Mitral Valve Structurally normal mitral valve without significant stenosis or prolapse. There is no mitral regurgitation. Aortic Valve Severe aortic valve calcification. Moderate aortic valve stenosis, mean gradient 3.3 mmHg, MARY 1.8 cm squared. Trace aortic valve regurgitation. Tricuspid Valve Mild tricuspid valve regurgitation. Pulmonic Valve Structurally normal pulmonic valve without significant stenosis. There is no pulmonic regurgitation. Pericardium Normal pericardium without effusion. Aorta Normal ascending aorta dimension. CONCLUSIONS 1-Normal left ventricular cavity size. Low normal left ventricular systolic function. No regional wall motion abnormalities. Left ventricular ejection fraction is estimated at 55 %. Grade I/IV diastolic dysfunction (abnormal relaxation filling pattern), normal to mildly elevated filling pressures. 2-Severe aortic valve calcification. Moderate aortic valve stenosis, mean gradient 3.3 mmHg, MARY 1.8 cm squared. Trace aortic valve regurgitation. 3-Mild tricuspid valve regurgitation. 4-There is no pericardial effusion. 5-Right atrial pressure is around 5 mm of mercury. 6-When compared to the prior echocardiogram dated 05/17/2014 there appeared to be moderate aortic stenosis now. Stefan Kaur MD (Electronically Signed) Final Date: 13 January 2020 21:08 S
[2020-01-10] MEDS: gabapentin 300 mg Capsule PO (14:47)
[2020-01-10 16:56] LABS: Glucose Point of Care 129 mg/dL (70-110)
--- NOTE | 2020-01-10 17:08 | PC.NURSE ---
US Echocardiogram is taken by Soledad prior to patients discharge.
--- NOTE | 2020-01-10 17:25 | PC.NURSE ---
patient discharge home at this time. Discharge instructions given and explained to patient; patient verbalized understanding of all instructions given including post angiogram home care instructions. IV discontinued cath intact min bleeding noted bandage applied. Patient assisted to wheel chair and accompanied to private vehicle all belongings and discharge instructions in hand.
--- NOTE | 2020-01-14 16:24 | PC.RESP ---
PULMONARY REHAB INFORMATION SENT TO PATIENT.
== END 2020-01-10 17:15 | disposition home or self-care (01) ==
LOC: CSU 10:12
PROVIDERS: Admitting Provider Internal Medicine Cardiovascular Disease; PCP Internal Medicine; Visit Provider Internal Medicine Cardiovascular Disease
DX: N20.0 Calculus of kidney (principal); I70.0 Atherosclerosis of aorta; I35.1 Nonrheumatic aortic (valve) insufficiency; I07.1 Rheumatic tricuspid insufficiency; I25.10 Atherosclerotic heart disease of native coronary artery without angina pectoris; Z95.1 Presence of aortocoronary bypass graft; I10 Essential (primary) hypertension; E78.5 Hyperlipidemia, unspecified; Z87.891 Personal history of nicotine dependence
CPT/HCPCS: 12345; 36416; 82962; 93306; 93455; 96360; 96361; C1769; C1887; C1894; G0378; J1200; J1644; J2250; J3010; J7030; Q9967

== ENCOUNTER → 2020-01-17 16:07 | Outpatient (BNVA) | payer OTHER, MEDICARE, SELFPAY | PROVIDERS: PCP Internal Medicine; Visit Provider Internal Medicine Cardiovascular Disease | DX: I50.9 Heart failure, unspecified (principal); I25.10 Atherosclerotic heart disease of native coronary artery without angina pectoris | CPT/HCPCS: 80048; 83735; 83880 ==

== ENCOUNTER 2020-05-30 12:44 | Outpatient (CLI) | payer OTHER, SELFPAY ==
--- NOTE | 2020-05-30 12:55 | USCV_ITS ---
Ambrose Villa Age: 74 Gender: M : 1945 Exam Date: 05/30/2020 13:05 Ordering Phys: Radha Blevins MD Technologist: Ani Toribio [place]am [place] [facility] [place] Indication: STENOSIS Risk Factors: Previous Vascular Surgery: Right Brachial BP: / Left Brachial BP: / Right Left Velocity (cm/s) Spectral Plaque Velocity (cm/s) Spectral Plaque Syst/Diast Broadening Syst/Diast Broadening 53.00/ 13.70 Prox CCA 55.80 / 12.90 55.50/ 19.70 Mid CCA 43.70 / 12.10 37.50/ 11.80 Distal CCA 46.70 / 16.50 54.60/ 9.90 Prox ICA 27.10 / 9.40 34.20/ 12.50 Mid ICA 38.40 / 16.30 40.50/ 14.00 Distal ICA 30.60 / 11.80 55.20 ECA 58.10 0.98 ICA/CCA 0.88 Antegrade Vertebral Antegrade 29.40/ 10.10 cm/s 35.50/ 9.90 cm/s Tri Subclavian Tri 82.50 26.10 FINDINGS Comparison: none available. No significant elevation of systolic or diastolic velocities. Waveforms are normal. Minimal bilateral, intimal thickening with no elevation of velocity. CONCLUSIONS Bilateral ICA stenosis less than 50%. Mild carotid atherosclerosis. Dr. Zaida Feliciano DO (Electronically Signed) Final Date: 30 May 2020 16:06 S
== END 2020-05-30 12:45 | disposition home or self-care (01) ==
LOC: RAD 12:52
PROVIDERS: PCP Nurse Practitioner; Visit Provider Family Medicine
DX: R09.89 Other specified symptoms and signs involving the circulatory and respiratory systems (principal); I65.23 Occlusion and stenosis of bilateral carotid arteries
CPT/HCPCS: 93880

== ENCOUNTER 2020-09-20 18:15 | Inpatient (IN) | payer OTHER, MEDICARE, SELFPAY ==
[2020-09-20 18:15] VITALS: BP 163/83; PULSE 68; RESP 18; TEMP 36.7; O2SAT 95; BMI 41.5
--- NOTE | 2020-09-20 18:34 | XR_ITS ---
WS: [id number] Portable AP upright chest, 09/20/2020 Clinical Data: reduced breath sounds Comparison: Portable chest, 01/20/2019. Findings: No nodules, masses or effusions are seen. The heart is enlarged. No pneumonia or pneumothor ax is present. The aortic arch and descending aorta show tortuosity. Midline sternotomy sutures are p resent. There are healed fractures of the posterior aspect of the right sixth and seventh ribs. Ortho pedic fixation of the left third, fifth and sixth ribs again seen. XR/XR chest 1V portable [id number] Impression: 1. Atherosclerosis and cardiomegaly. 2. No change from previous chest x-ray.
--- NOTE | 2020-09-20 18:34 | CTR_ITS ---
PROCEDURE INFORMATION: Exam: CT Abdomen And Pelvis Without Contrast Exam date and time: 09/20/2020 6:52 PM Age: 74 years old Clinical indication: Abdominal pain; Flank; Right; Additional info: Right flank pain TECHNIQUE: Imaging protocol: Computed tomography of the abdomen and pelvis without contrast. Total images: 366 Radiation optimization: All CT scans at this facility use at least one of these dose optimization techniques: automated exposure control; mA and/or kV adjustment per patient size (includes targeted exams where dose is matched to clinical indication); or iterative reconstruction. COMPARISON: No relevant prior studies available. RADIATION DOSE METRICS: Total DLP (mGy-cm): 1997.66 FINDINGS: Lungs: Limited assessment of the lung bases fails to reveal evidence for active cardiopulmonary process. Mild tubular bronchiectasis posterior basal segment left lower lobe. Liver: No visible hepatic mass or cystic structure. Gallbladder and bile ducts: Normal. No calcified stones. No ductal dilation. Pancreas: Pancreas unremarkable. No visible pancreatic ductal ectasia. Spleen: Spleen unremarkable. Adrenal glands: Adrenal glands unremarkable. Kidneys and ureters: No hydronephrosis or perinephric fluid. No visible nephrolithiasis. Simple cortical cyst equator right kidney measuring 34 mm in diameter. No follow-up recommended. No visible nephrolithiasis or ureterolithiasis. Stomach and bowel: Diverticulosis coli without visible evidence for acute diverticulitis nonobstructive bowel pattern. No visible adynamic or reactive ileus. Appendix: The appendix is visualized and appears noninflamed. Intraperitoneal space: No visible evidence of mesenteric lymphadenitis or active mesenteritis/panniculitis. No visible pneumoperitoneum or intraperitoneal ascites. Vasculature: Coronary artery disease. The abdominal aorta is nonaneurysmal. Moderate arterial sclerotic disease. Lymph nodes: No current visible evidence of active mesenteric or retroperitoneal lymphadenopathy. Urinary bladder: Urinary bladder decompressed. No gross filling defect. Reproductive: Prostate hypertrophy. Bones/joints: No visible active or acute osseous pathology. 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 Degenerative disease of the spine. Facet arthrosis. Soft tissues: Left inguinal hernia containing fat only. Other findings: Obesity. CT/CT kidney stone [id number] IMPRESSION: Currently no visible evidence of acute abdominal or pelvic pathologic process. COMMENTS: Consistent with the [employer]'s Incidental Findings Committee white paper (J Am Trent Radiol 2018): Any incidental renal lesion less than 1 cm or classified as too small to characterize, or any incidental cystic renal lesion characterized as simple-appearing, is likely benign. No follow-up imaging is recommended for these lesions per consensus recommendations based on imaging criteria. Radiation Dose CTDIVOL = (mGy): DLP = 1998.66 (mGy-cm)
--- NOTE | 2020-09-20 18:38 | ECG_ITS ---
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 Measurements Intervals Lawn Rate: 60 P: 65 TX: 170 QRS: -50 QRSD: 110 T: 28 QT: 432 QTc: 435 Interpretive Statements SINUS RHYTHM LEFT AXIS DEVIATION [QRS AXIS < -30] PATTERN CONSISTENT WITH PULMONARY DISEASE MINIMAL ST DEPRESSION [0.025+ mV ST DEPRESSION] Compared to ECG 07/15/2019 11:58:02 ST (T wave) deviation now present T-wave abnormality no longer present Electronically Signed On 09-20-2020 19:52:06 CDT by Hansa Humphrey M.D. [email or web address]
[2020-09-20 19:13] LABS: Basophils # 0.1 10^3/uL (0.0-0.1); Basophils % 0.8 %; Eosinophils # 0.4 10^3/uL (0.0-0.8); Eosinophils % 3.3 %; Hematocrit 46.7 % (42.0-52.0); Hemoglobin 15.1 g/dL (11.7-16.6); Lymphocytes # 2.9 10^3/uL (0.8-4.8); Mean Corpuscular HGB Conc 32.3 g/dL (30.0-36.0); Mean Corpuscular Hemoglobin 32.8 pg (28.0-34.0); Mean Corpuscular Volume 101.5 fL (80-94); Mean Platelet Volume 11.1 fL (7.4-10.4); Monocytes # 0.6 10^3/uL (0.2-0.9); Monocytes % 5.6 %; Neutrophils % 63.8 %; Nucleated Red Blood Cells % 0 %; Platelet Count 176 10^3/cmm (130-400); Red Cell Distribution Width 13.9 % (12.1-15.1); White Blood Count 11.1 10^3/uL (4.0-10.0)
[2020-09-20 19:30] VITALS: BP 124/74; PULSE 66; O2SAT 95
[2020-09-20 19:31] LABS: Troponin(5th) Baseline 28 ng/L (0-15)
[2020-09-20 19:36] LABS: Alanine Aminotransferase 12 U/L (0-41); Albumin Level 4.1 g/dL (3.5-5.2); Alkaline Phosphatase 53 IU/L (40-130); Anion Gap 15.5 (5-19); Aspartate Amino Transferase 15 U/L (0-40); Blood Urea Nitrogen 16 mg/dL (8-23); Calcium 9.3 mg/dL (8.5-10.5); Carbon Dioxide 25 mmol/L (22-29); Chloride 103 mmol/L (98-107); Glucose 257 mg/dL (65-115); Lipase 22 U/L (13-60); NT Pro B Type Natriuretic Pept 234 pg/mL (0-125); Osmolality Calculated 298 mOsm/kg (285-295); Potassium 4.5 mmol/L (3.5-5.1); Sodium 139 mmol/L (136-145); Total Bilirubin 0.5 mg/dL (0.15-1.2); Total Protein 6.1 g/dL (6.6-8.7)
--- NOTE | 2020-09-20 19:48 | ED_ITS ---
HPI - Abdominal Pain General: Chief Complaint: Abdominal Pain Stated Complaint: LOWER ABD PAIN/R FLANK PAIN Time Seen by Provider: 09/20/20 18:23 History of Present Illness: HPI narrative: The patient is a 74-year-old male with significant past medical history and multiple ureteral stones, COPD on 3 L, CAD, CHF, CABG, urethral stricture, chronic kidney disease. He comes to the ER complaining of right lower quadrant pain that started at about 3:00 PM today. The pain radiates to his right flank and right groin and feels similar to previous stones. Denies hematuria. He says he is having dribbling urination and has a urethral stricture. He is supposed to be self cathing but he does not. He also does not wear his oxygen and at home as he is supposed to. MD elicited complaint: flank pain Onset (ago): hour(s) (4) Pain Consistency: constant Severity: moderate Quality: cramping and sharp Radiation: R flank Exacerbating factors: nothing Associated Symptoms: Reports no associated symptoms; Denies GI cramping and diarrhea Review of Systems General: Reports: 10 or more systems reviewed and unremarkable except in HPI and below Const: Denies: fatigue Eyes: Denies: change in vision, blurry vision or eye redness ENMT: Denies: throat pain, swelling of lips/tongue, ear or mastoid pain or nasal congestion Card: Denies: chest pain, palpitations, irregular heart rhythm, edema, dyspnea on exertion or orthopnea Resp: Denies: dyspnea, productive cough or non-productive cough GI: Denies: abdominal pain, diarrhea or GI cramping : Denies: flank pain, urinary frequency or urinary urgency Musc: Denies: neck pain, back pain, extremity pain, joint pain, joint redness, limited range of motion or muscle weakness Skin/Breast: Denies: rash, pruritus, erythema, skin pain or skin tenderness Neuro: Denies: headache(s), numbness in extremities, weakness in extremities, sensory changes, difficulty walking, dizziness, confusion or Slurred speech present Psych: Denies: anxiety or depression Endo: Denies: polyuria All/Imm: Denies: urticaria, throat swelling or tongue swelling PFSH ED PFSH: Medical History Congestive heart failure COPD (chronic obstructive pulmonary disease) Coronary artery disease CABG x 4 in 2012, history of sternal nonunion. Diabetes type 2, uncontrolled High cholesterol History of kidney stones Hx of chest wall injury Neuropathy On home O2 Sleep apnea Urethral stricture, postoperative Severe panurethral stricture disease requiring multiple dilations and endoscopic treatment. Complicating treatment of stones Uric acid urolithiasis Surgical History History of quadruple bypass Hx of lithotripsy Status post placement of ureteral stent Family History Mother , at age 76 COPD (chronic obstructive pulmonary disease) Father , at age 68-aortic aneurysm No problems noted. Social History Smoking and tobacco status: former smoker Alcohol intake: former Marital status: Current occupational status: retired Current gender identity: Male Physical Exam Const: COMMON NORMALS: no acute distress, average body habitus, patient oriented x3, no limitations, healthy appearing, alert and well nourished GENERAL APPEARANCE: cooperative, comfortable, well kempt and well developed ORIENTATION/CONSCIOUSNESS: Yes awake, Yes oriented to person, Yes oriented to place and Yes oriented to time HENMT: COMMON NORMALS: normocephalic, external ears normal and Normal external nose present HEAD & SCALP: normal to inspection and normocephalic NOSE: Normal external nose present EXTERNAL EAR: Yes external ears normal MOUTH: Normal oral and palatal mucosa present THROAT: posterior oropharynx normal Eye: COMMON NORMALS: Equal, round and reactive pupils present and EOMs intact bilaterally GENERAL EYE: appearance normal, both eyes and all related structures PUPIL: Yes Equal, round and reactive pupils present Neck/C-Spine: COMMON NORMALS: full ROM, no lymphadenopathy, no meningeal signs and no JVD GENERAL: Yes normal visual inspection Lymph: LYMPHATIC: no lymphadenopathy noted Chest: COMMONS NORMALS: normal inspection of the chest and normal palpation of entire chest wall Resp: COMMON NORMALS: normal respiratory effort, No retractions, No use of accessory muscles, clear to auscultation bilaterally and percussion normal EFFORT & INSPECTION: Yes able to speak in complete sentences AUSCULTATION: clear to auscultation bilaterally PERCUSSION: percussion normal Cardio: COMMON NORMALS: no JVD, regular rate, regular rhythm, S1 normal heart sound present, S2 normal heart sound present and Peripheral pulses 2+ throughout RATE: regular rate RHYTHM: regular rhythm HEART SOUNDS: S1 normal heart sound present and S2 normal heart sound present PERIPHERAL PULSES: Peripheral pulses 2+ throughout GI: COMMON NORMALS: Normal to inspection, nondistended, normoactive bowel sounds present, Soft to palpation, non-tender and no masses INSPECTION: Yes normal to inspection PALPATION: Yes Soft to palpation Back/Pelvis: COMMON NORMALS: thoracic and lumbar spine normal to inspection, no thoracic nor lumbar tenderness and thoraco-lumbar ROM normal GENERAL BACK: Yes CVA tenderness CVA tenderness: right Extremity: COMMON NORMALS: normal to inspection, full ROM, capillary refill normal, no joint enlargement and no pedal edema GENERAL: Yes normal exam except as noted Neuro: COMMON NORMALS: patient oriented x3, CN's II-XII intact bilaterally, moves all extremities, no focal motor deficits, no sensory deficits noted and gait normal SENSORIUM/ORIENTATION: Yes alert, Yes oriented to person, Yes oriented to place and Yes oriented to time MENINGEAL SIGNS: Yes no meningeal signs Psych: COMMON NORMALS: mental status grossly normal, Normal thought process present, cooperative, normal affect and speech normal APPEARANCE: Yes well kempt ATTITUDE: Yes calm SPEECH: Yes normal speech THOUGHT PROCESS: Normal thought process present Skin: COMMON NORMALS: no rashes or lesions noted GENERAL SKIN EXAM: no rashes or lesions noted Course Vital Signs: Vital signs: Vital Signs Temperature 98.1 F 09/20/20 18:15 Pulse Rate 68 09/20/20 18:15 Respiratory Rate 18 09/20/20 18:15 Blood Pressure 163/83 09/20/20 18:15 Pulse Oximetry 95 09/20/20 18:15 MDM - Abdominal Pain MDM Narrative: Medical decision making narrative: The patient came in with right flank pain. CT is negative for any acute pathology including stones. He does however have a severe stricture of his urethra and we were unable to pass a Flores catheter. CT does not show severe dilatation of his bladder. Discussed with Dr. Iglesias who will see him in the morning and likely dilate his urethra and place a Flores in the OR. Discussed with who accepts for admission. Discussed with him his elevated white count and lactic acid levels. Will start empirically on levofloxacin for suspected infection. He also has chronic kidney disease and is trending at his baseline. Lab Data: Labs: Lab Results 09/20/20 09/20/20 09/20/20 Range/Units 18:49 18:49 18:49 WBC 11.1 H (4.0-10.0) 10^3/ uL RBC 4.60 (4.1-5.3) 10^6/u L Hgb 15.1 (11.7-16.6) g/dL Hct 46.7 (42.0-52.0) % MCV 101.5 H (80-94) fL MCH 32.8 (28.0-34.0) pg MCHC 32.3 (30.0-36.0) g/dL RDW 13.9 (12.1-15.1) % Plt Count 176 (130-400) 10^3/c mm MPV 11.1 H (7.4-10.4) fL Neut % (Auto) 63.8 % Lymph % (Auto) 26.0 % [place] % (Auto) 5.6 % Eos % (Auto) 3.3 % Baso % (Auto) 0.8 % Neut # (Auto) 7.10 (1.8-7.7) 10^3/u L Lymph # (Auto) 2.9 (0.8-4.8) 10^3/u L [place] # (Auto) 0.6 (0.2-0.9) 10^3/u L Eos # (Auto) 0.4 (0.0-0.8) 10^3/u L Baso # (Auto) 0.1 (0.0-0.1) 10^3/u L Nucleated RBC % (a uto) 0 % Nucleated RBCs # 0.0 /100WBC Sodium 139 (136-145) mmol/L Potassium 4.5 (3.5-5.1) mmol/L Chloride 103 (98-107) mmol/L Carbon Dioxide 25 (22-29) mmol/L Anion Gap 15.5 (5-19) BUN 16 (8-23) mg/dL Creatinine 1.3 H (0.7-1.2) mg/dL GFR Calculation Not Reportable Glucose 257 H (65-115) mg/dL Calculated Osmolal ity 298 H (285-295) mOsm/k g Lactate 3.0 H (0.5-2.2) mmol/L Calcium 9.3 (8.5-10.5) mg/dL Total Bilirubin 0.5 (0.15-1.2) mg/dL AST 15 (0-40) U/L ALT 12 (0-41) U/L Alkaline Phosphata se 53 (40-130) IU/L Troponin T Baselin e (0-15) ng/L NT-Pro-B Natriuret Pep 234 H (0-125) pg/mL Total Protein 6.1 L (6.6-8.7) g/dL Albumin 4.1 (3.5-5.2) g/dL Globulin 2.0 (1.3-4.6) g/dL Lipase 22 (13-60) U/L 09/20/20 Range/Units 18:49 WBC (4.0-10.0) 10^3/ uL RBC (4.1-5.3) 10^6/u L Hgb (11.7-16.6) g/dL Hct (42.0-52.0) % MCV (80-94) fL MCH (28.0-34.0) pg MCHC (30.0-36.0) g/dL RDW (12.1-15.1) % Plt Count (130-400) 10^3/c mm MPV (7.4-10.4) fL Neut % (Auto) % Lymph % (Auto) % [place] % (Auto) % Eos % (Auto) % Baso % (Auto) % Neut # (Auto) (1.8-7.7) 10^3/u L Lymph # (Auto) (0.8-4.8) 10^3/u L [place] # (Auto) (0.2-0.9) 10^3/u L Eos # (Auto) (0.0-0.8) 10^3/u L Baso # (Auto) (0.0-0.1) 10^3/u L Nucleated RBC % (a uto) % Nucleated RBCs # /100WBC Sodium (136-145) mmol/L Potassium (3.5-5.1) mmol/L Chloride (98-107) mmol/L Carbon Dioxide (22-29) mmol/L Anion Gap (5-19) BUN (8-23) mg/dL Creatinine (0.7-1.2) mg/dL GFR Calculation Glucose (65-115) mg/dL Calculated Osmolal ity (285-295) mOsm/k g Lactate (0.5-2.2) mmol/L Calcium (8.5-10.5) mg/dL Total Bilirubin (0.15-1.2) mg/dL AST (0-40) U/L ALT (0-41) U/L Alkaline Phosphata se (40-130) IU/L Troponin T Baselin e 28 H (0-15) ng/L NT-Pro-B Natriuret Pep (0-125) pg/mL Total Protein (6.6-8.7) g/dL Albumin (3.5-5.2) g/dL Globulin (1.3-4.6) g/dL Lipase (13-60) U/L Discharge Plan Discharge Patient Disposition: Admitted As Inpatient Clinical Impression: Urethral stricture, Abdominal pain Condition: Stable Coding Level of Care Code ED Tissue Specialist for Chg Fwd Exam Comprehensive
[2020-09-20] MEDS: ondansetron 2 mg/ML SDV 2 mL 4 MG IVP (20:26)
[2020-09-20 20:30] VITALS: BP 138/77; PULSE 63; O2SAT 95
[2020-09-20] MEDS: HYDROmorphone 1 mg/mL INJ 1 mL 0.5 MG IVP (20:32)
--- NOTE | 2020-09-20 20:53 | PC.PHAR ---
PT HAS BEEN HERE FOR 2 AND 1/2 HOURS AT THIS TIME. [facility]T COM[facility]. I WENT AHEAD AND PUT IN THE MEDICATIONS THAT WERE ON HIS HISTORY AND HE CONFIRMED THEM. IF [facility] L[facility] COM[facility] BEFORE MY SHIFT IS OVER, I WILL AMEND IT IF NECESSARY.
--- NOTE | 2020-09-20 21:29 | P.HP_ITS ---
Providers/Chief Complaint Primary Care Provider: NEAL Rivera Chief Complaint: LOWER ABD PAIN/R FLANK PAIN History of Present Illness Ambrose Villa is a 74 year old male with history of urethral stricture, urolithiasis, follows up with Dr. Iglesias has had multiple interventions for his urethral stricture, he was placed on aggressive SCIS program with 16 Serbian catheter, presented today with chief complaint of right-sided flank pain. Patient is stating that today he started experiencing right-sided flank pain which associated with 3 episodes of emesis. He is denying fever, shortness of breath or chest pain. He is stating that he has not been self catheterizing frequently. After 3 episode of emesis he felt very weak and felt drowsy, when his entered the room she found him very lethargic and drowsy hence called EMS for further evaluation. Diagnosis in the ER revealed normal hemodynamics, leukocytosis, lactic acidemia, CT abdomen pelvis did not reveal hydronephrosis bladder is decompressed, he is afebrile, creatinine seems to be around baseline 1.3, clinically does look dehydrated, chest x-ray unremarkable, Dr. Iglesias notified and consulted, he was given Levaquin 750 mg IV in the ER, multiple attempts of coud? catheter unsuccessful Review of Systems Const: Denies: chills Eyes: Denies: change in vision ENMT: Denies: throat pain Card: Denies: chest pain Resp: Denies: dyspnea GI: Reports: nausea and vomiting; Denies: abdominal pain : Reports: flank pain Musc: Denies: neck pain Skin/Breast: Denies: rash Neuro: Denies: headache(s) Psych: Denies: anxiety Endo: Denies: polyuria Rafa/Lymph: Denies: easy bruising All/Imm: Denies: urticaria Medications/Allergies Home Medications Medication Instructions Recorded Confirmed Last Taken Type albuterol sulfate 2 puff INHALATION Q6H PRN 07/15/19 09/20/20 01/09/20 06:30 History aspirin 81 mg PO DAILY@0600 07/15/19 09/20/20 09/20/20 History budesonide-formoterol [Symbicort] 2 puff INHALATION BID 07/15/19 09/20/20 01/09/20 06:30 History ergocalciferol (vitamin D2) 50,000 unit PO DAILY@0600 07/15/19 09/20/20 09/20/20 History [Vitamin D2] gabapentin 300 mg PO TID@06,12,18 07/15/19 09/20/20 09/20/20 History glipizide 10 mg PO BID@0600,1800 07/15/19 09/20/20 09/20/20 History pravastatin [Pravachol] 40 mg PO DAILY@0600,1800 07/15/19 09/20/20 09/20/20 History insulin glargine 100 unit/mL 50 unit SUBCUT DAILY@0600 ml 07/19/19 09/20/20 09/20/20 History subcutaneous solution alogliptin 25 mg tablet 25 mg PO DAILY@0600 12/29/19 09/20/20 09/20/20 History lisinopril 5 mg tablet 10 mg PO DAILY@0600 tab 12/29/19 09/20/20 09/20/20 History metoprolol tartrate 25 mg tablet 50 mg PO BID@0600,1800 tab 12/29/19 09/20/20 09/20/20 History furosemide 20 mg PO DAILY@0600 09/20/20 09/20/20 09/20/20 History isosorbide mononitrate 10 mg PO BID@0600,1300 09/20/20 09/20/20 09/20/20 History potassium chloride 20 meq PO BID@0600,1800 09/20/20 09/20/20 09/20/20 History Allergies Allergy/AdvReac Type Severity Reaction Status Date / Time Penicillins Allergy ALGY-Difficulty Verified 01/10/20 08:37 Breathing PFSH Acute PFSH: Medical History Congestive heart failure COPD (chronic obstructive pulmonary disease) Coronary artery disease CABG x 4 in 2012, history of sternal nonunion. Diabetes type 2, uncontrolled High cholesterol History of kidney stones Hx of chest wall injury Neuropathy On home O2 Sleep apnea Urethral stricture, postoperative Severe panurethral stricture disease requiring multiple dilations and endoscopic treatment. Complicating treatment of stones Uric acid urolithiasis Surgical History History of quadruple bypass Hx of lithotripsy Status post placement of ureteral stent Family History Mother , at age 76 COPD (chronic obstructive pulmonary disease) Father , at age 68-aortic aneurysm No problems noted. Social History Smoking and tobacco status: former smoker Alcohol intake: former Marital status: Current occupational status: retired Current gender identity: Male Vitals/I&O/Wt Last Vital Signs Temp 98.1 F 09/20/20 18:15 Pulse 68 09/20/20 18:15 Resp 18 09/20/20 18:15 BP 163/83 09/20/20 18:15 Pulse Ox 95 09/20/20 18:15 Weight last 48 hrs Weight 120.202 kg Physical Exam Narrative: EXAM NARRATIVE: elderly male who appears stated age, cl inically looks dehydrated was saturating well on 2 L nasal cannula Awake alert oriented x3 GCS 15 No neurological deficit S1, S2 no signs of heart failure Distended abdomen, no CVA tenderness, Focal tenderness in right lower quadrant no signs of peritonitis rigidity or guarding Lower extremity no edema gangrene ulcer No active discomfort no chest pain or shortness of breath Appropriate mood and affect No genital swelling Data : 09/20/20 18:49 09/20/20 18:49 A&P Assessment and plan (1) Urethral stricture: Status: Acute (2) Abdominal pain: Status: Acute Additional A&P Information Urethral stricture Multiple unsuccessful attempts to pass coud? catheter in the ER Bladder is decompressed No hydronephrosis on CT abdomen seen No significant urolithiasis Dr. Iglesias consulted I will keep him n.p.o. for cystoscopy in the morning Start Levaquin because of lactic acidemia and leukocytosis however he is not septic, I do not have urine sample, Would avoid fluids in order to prevent distention of bladder overnight, will start normal saline at 30 cc/h at 4 AM Hold Lasix and potassium supplementation Right focal right lower quadrant tenderness In my opinion it seems to be musculoskeletal in nature CT abdomen pelvis unremarkable he is able to pinpoint the area No CVA tenderness I will give him opioids along bowel regimen Chronic hypoxic respiratory failure Auto CPAP with oxygen supplementation No acute exacerbation currently saturating well on 2 L Emesis No acut episodes We will keep him on Zofran QTc interval not prolonged EKG unremarkable no sign of ischemia or infarction, no active chest pain He does have history of aortic stenosis, and with active dehydration, probably because presyncopal event at home, holding diuretics for now Full code N.p.o. after midnight DVT prophylaxis SCDs avoid anticoagulation in anticipation of intervention in the morning Attestations Medical Necessity Statement*: Anticipating stay in the hospital cross more than 2 midnights for urethral stricture requiring cystoscopy in the morning currently on Levaquin, has lactic acidemia with leukocytosis however not septic Time Spent in Patient Care: (>than 50% of time spent in counselling and/or direct pt care on unit) . 40mins Coding Level of Care Code Acute Asphalt Paving Foreman for dAelaida Hayes Diagnoses Urethral stricture N35.919 Abdominal pain R10.9
[2020-09-20 21:30] VITALS: BP 135/79; PULSE 65; O2SAT 94
[2020-09-20] MEDS: levofloxacin-dextrose 5 % 750 MG/150 ML PREMIX 100 MG IV (21:40)
[2020-09-20 22:30] VITALS: BP 127/66; PULSE 61; O2SAT 95
[2020-09-20 23:15] LABS: Bilirubin Urine 1+ (Negative); Blood Urine 3+ (Negative); Glucose Urine UA Trace (Normal); Ketones Urine 1+ (Negative); Nitrate Urine Negative (Negative); Protein Urine 2+ (Negative); Specific Gravity, Urine 1.025 (1.005-1.030); Urine Appearance Cloudy (CLEAR); Urine Color Brown (Yellow); pH Urine 5 (5-7)
[2020-09-20 23:16] LABS: Add Urine Microscopic? YES; Leukocyte Esterase Urine 1+ (Negative); Urobilinogen Urine 1 mg/dL (Negative)
[2020-09-20 23:17] LABS: Bacteria Urine 2+ /hpf; RBC Urine TOO NUMEROUS TO CNT /hpf (0-2); Squamous Epithelial Cell Urine 0-4 /hpf (0-5); WBC Urine 15-25 /hpf (0-5)
[2020-09-20 23:18] LABS: Add Urine Culture? Yes; Amorphous Sediment Urine 4+ /hpf
[2020-09-20 23:40] VITALS: BP 138/81; PULSE 71; RESP 18; TEMP 36.7; O2SAT 96
[2020-09-20 23:49] LABS: Glucose Point of Care 133 mg/dL (70-110)
[2020-09-21] VITALS (19 sets, daily range): BP systolic 100–123; BP diastolic 55–78; PULSE 61–85; RESP 16–19; TEMP 36.3–37.2; O2SAT 90–99
--- NOTE | 2020-09-21 | SCC_ITS ---
Procedure Done: 1. Cystoscopy with urethral dilation 101.1 seconds of fluoroscopic guidance, for a cumulative dose of 61.24mGy, was provided to Dr. Iglesias by the radiology department. C-arm images of the abdomen were saved for the patient's permanent record. [id number]
[2020-09-21] MEDS: sodium chloride 0.9% 1,000 ML 30 ML IV ×2 (03:55→16:37)
[2020-09-21] MEDS: isosorbide mononitrate 20 mg Tablet 10 MG PO (05:42)
[2020-09-21] MEDS: aspirin 81 mg EC Tablet PO (05:43)
[2020-09-21] MEDS: atorvastatin 40 mg Tablet 20 MG PO (05:46)
[2020-09-21] MEDS: gabapentin 100 mg Capsule PO (05:47)
[2020-09-21] MEDS: metoprolol tartrate 50 mg Tablet PO (05:47)
[2020-09-21] MEDS: insulin glargine 100 units/1 mL 40 UNIT SUBCUT (05:48)
[2020-09-21 06:11] LABS: Basophils # 0.1 10^3/uL (0.0-0.1); Basophils % 0.8 %; Eosinophils # 0.4 10^3/uL (0.0-0.8); Eosinophils % 4.2 %; Hematocrit 42.7 % (42.0-52.0); Hemoglobin 13.9 g/dL (11.7-16.6); Lymphocytes # 2.7 10^3/uL (0.8-4.8); Lymphocytes % 30.2 %; Mean Corpuscular HGB Conc 32.6 g/dL (30.0-36.0); Mean Corpuscular Hemoglobin 33.2 pg (28.0-34.0); Mean Corpuscular Volume 101.9 fL (80-94); Monocytes # 0.7 10^3/uL (0.2-0.9); Monocytes % 7.5 %; Neutrophils # 4.97 10^3/uL (1.8-7.7); Neutrophils % 56.7 %; Nucleated Red Blood Cells % 0 %; Platelet Count 162 10^3/cmm (130-400); Red Blood Count 4.19 10^6/uL (4.1-5.3); Red Cell Distribution Width 13.9 % (12.1-15.1); White Blood Count 8.8 10^3/uL (4.0-10.0)
[2020-09-21 06:45] LABS: Anion Gap 13.3 (5-19); Blood Urea Nitrogen 16 mg/dL (8-23); Calcium 8.9 mg/dL (8.5-10.5); Carbon Dioxide 29 mmol/L (22-29); Chloride 103 mmol/L (98-107); Glucose 117 mg/dL (65-115); Osmolality Calculated 294 mOsm/kg (285-295); Potassium 4.3 mmol/L (3.5-5.1); Sodium 141 mmol/L (136-145)
--- NOTE | 2020-09-21 06:45 | PM.CONSULT ---
Providers/Reason For Consult Consulting Physican/Specialty*: Urology/Iglesias Reason for Consult*: Recurrent urethral stricture Attending Physician: Stefan Shaikh MD Primary Care Provider: NEAL Rivera History of Present Illness History of Present Illness Ambrose Villa is a 74 year old male well-known to me for history of severe urethral stricture disease complicated by noncompliance with SCIC for long-term management for stricture patency maintenance. He has required multiple procedures in the past under anesthesia to simply bridge the stricture. He has never achieved a long-term success because he fails to continue doing SCIC as instructed. Also following for UROLITHIASIS (uric acid urolithiasis requiring both medical manipulation with urinary alkalinization and surgical intervention with endoscopy and ESWL) Last surgical procedure was in June 2019 in association with ureteral stent placement and ESWL to a large left uric acid renal calculus. At that visit he required dilation of the proximal urethra initially with ureteroscope followed by guidewire passage and Amplatz dilators up to 20 Telugu. This was required in order to get a wire up the ureter. The dilation was very tenuous taking over an hour just to get into the bladder because of the status of his recurrent strictures. After successful treatment of the stone with ESWL and stent placement a Flores catheter was left in for further passive dilation. The catheter was left in for prolonged period of time to ensure access to be able to remove the stent etc. A follow-up URETEROSCOPY was performed with additional laser lithotripsy to clear the remaining fragments following ESWL. Was continued on POTASSIUM CITRATE. Stent was removed approximately 2 weeks following the procedure and because of indwelling urethral catheter access into the bladder was not very hard. Follow-up CT scan in August showed no evidence of residual stones and he was doing well clinically. Was recommended that he follow-up in 4 months while continuing the POTASSIUM CITRATE and SCIC on a regular schedule as opposed to waiting till he had difficulty voiding. He no showed for his 01/13/2020 appointment and has not followed up since. Presented to the emergency department last night with complaints of nausea and right flank pain as well as right groin pain that reminded him of stones. Also complained of dribbling of urination with no significant stream. He readily admitted that he had not been catheterizing. Attempts of placing catheter were unsuccessful. Work-up in the emergency department: 1. Urinalysis 15-25 white cells, too numerous to count RBCs, nitrite negative, 2+ bacteria. Urine pH 5.0 2. CBC showed white count 11.8 (8.8 this morning) hemoglobin was 15 and 13 respectively 3. Coags normal 4. Creatinine 1.[address] scan: No evidence of recurrent uric acid stones or other urolithiasis. There is no evidence of hydronephrosis. His bladder is decompressed. Unchanged right parenchymal cyst. 6. LACTATE 3.0 Because of the concern for possible sepsis he was admitted for further evaluation and treatment. He did not show hemodynamic instability. His other parameters for infection were actually pretty well controlled. Was placed on IV antibiotics, admitted by the hospitalist service, and I was consulted for further evaluation. Review of Systems Const: Reports: malaise; Denies: fever(s) or chills Eyes: Denies: change in vision or blurry vision ENMT: Denies: hoarseness Card: Denies: chest pain or palpitations Resp: Denies: dyspnea, productive cough or wheezing GI: Reports: abdominal pain, nausea and vomiting : Reports: flank pain, difficulty urinating and urinary dribbling; Denies: hematuria Musc: Denies: joint redness or joint warmth Skin/Breast: Denies: rash or changing lesions Neuro: Denies: confusion, Slurred speech present or seizure-like activity Psych: Reports: anxiety; Denies: loss of interest Endo: Denies: flushing or hot flashes Rafa/Lymph: Denies: easy bruising or easy bleeding All/Imm: Reports: urticaria; Denies: acute wheezing Meds/Allergies Home Medications and Allergies Home Medications Medication Instructions Recorded Confirmed Last Taken Type albuterol sulfate 2 puff INHALATION Q6H PRN 07/15/19 09/20/20 01/09/20 06:30 History aspirin 81 mg PO DAILY@0600 07/15/19 09/20/20 09/20/20 History budesonide-formoterol [Symbicort] 2 puff INHALATION BID 07/15/19 09/20/20 01/09/20 06:30 History ergocalciferol (vitamin D2) 50,000 unit PO DAILY@0600 07/15/19 09/20/20 09/20/20 History [Vitamin D2] gabapentin 300 mg PO TID@,07/15/19 09/20/20 09/20/20 History glipizide 10 mg PO BID@0600,1800 07/15/19 09/20/20 09/20/20 History pravastatin [Pravachol] 40 mg PO DAILY@0600,1800 07/15/19 09/20/20 09/20/20 History insulin glargine 100 unit/mL 50 unit SUBCUT DAILY@0600 ml 07/19/19 09/20/20 09/20/20 History subcutaneous solution alogliptin 25 mg tablet 25 mg PO DAILY@0600 12/29/19 09/20/20 09/20/20 History lisinopril 5 mg tablet 10 mg PO DAILY@0600 tab 12/29/19 09/20/20 09/20/20 History metoprolol tartrate 25 mg tablet 50 mg PO BID@0600,1800 tab 12/29/19 09/20/20 09/20/20 History furosemide 20 mg PO DAILY@0600 09/20/20 09/20/20 09/20/20 History isosorbide mononitrate 10 mg PO BID@0600,1300 09/20/20 09/20/20 09/20/20 History potassium chloride 20 meq PO BID@0600,1800 09/20/20 09/20/20 09/20/20 History Allergies Allergy/AdvReac Type Severity Reaction Status Date / Time Penicillins Allergy ALGY-Difficulty Verified 01/10/20 08:37 Breathing Current Medications Current Medications Generic Name Dose Route Start Last Admin Trade Name Timq PRN Reason Stop Dose Admin Aspirin 81 mg 09/21/20 06:00 09/21/20 05:43 Aspirin 81 Mg Ec Tablet PO 81 mg DAILY@0600 VIRGIL Administration Atorvastatin Calcium 20 mg 09/21/20 06:00 09/21/20 05:46 Atorvastatin 40 Mg Tablet PO 20 mg DAILY@0600,1800 VIRGIL Administration Gabapentin 100 mg 09/21/20 06:00 09/21/20 05:47 Gabapentin 100 Mg Capsule PO 100 mg TID@ VIRGIL Administration Sodium Chloride 1,000 mls @ 30 mls/hr 09/21/20 04:00 09/21/20 03:55 Sodium Chloride 0.9% IV 30 mls/hr .Q24H VIRGIL Administration Insulin Glargine 40 unit 09/21/20 06:00 09/21/20 05:48 Insulin Glargine 100 Units/1 Ml SUBCUT 40 unit DAILY@0600 VIRGIL Administration Isosorbide Mononitrate 10 mg 09/21/20 06:00 09/21/20 05:42 Isosorbide Mononitrate 20 Mg Tablet PO 10 mg BID@0600,1300 VIRGIL Administration Metoprolol Tartrate 50 mg 09/21/20 06:00 09/21/20 05:47 Metoprolol Tartrate 50 Mg Tablet PO 50 mg BID@0600,1800 VIRGIL Administration PFSH Acute PFSH: Medical History Congestive heart failure COPD (chronic obstructive pulmonary disease) Coronary artery disease CABG x 4 in 2011, history of sternal nonunion. 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 Complicating treatment of stones Uric acid urolithiasis Surgical History History of quadruple bypass Hx of lithotripsy Status post placement of ureteral stent Family History Mother , at age 76 COPD (chronic obstructive pulmonary disease) Father , at age 68-aortic aneurysm No problems noted. Social History Smoking and tobacco status: former smoker Alcohol intake: former Marital status: Current occupational status: retired Current gender identity: Male Vitals/I&O/Wt Last Vital Signs Temp 98.1 F 09/21/20 04:20 Pulse 66 09/21/20 04:20 Resp 16 09/21/20 04:20 BP 107/61 09/21/20 04:20 Pulse Ox 96 09/21/20 04:20 09/20/20 09/20/20 09/21/20 14:59 22:59 06:59 Intake Total 150 / 150 Output Total 180 / 180 Balance -30 / -30 Weight last 48 hrs Weight 265 lb Physical Exam Const: COMMON NORMALS: no acute distress, alert and well nourished GENERAL APPEARANCE: well kempt and well developed ORIENTATION/CONSCIOUSNESS: not confused HENMT: COMMON NORMALS: normocephalic and atraumatic HEAD & SCALP: normocephalic and atraumatic Eye: COMMON NORMALS: conjunctivae normal and no scleral icterus CONJUNCTIVA: Yes conjunctivae normal Neck/C-Spine: COMMON NORMALS: full ROM GENERAL: Yes normal visual inspection Resp: COMMON NORMALS: normal respiratory effort EFFORT & INSPECTION: No labored and No Actively coughing Cardio: COMMON NORMALS: regular rate and regular rhythm RATE: regular rate RHYTHM: regular rhythm GI: COMMON NORMALS: Soft to palpation PALPATION: Yes Soft to palpation and No Tenderness to palpation present (GI) OTHER: No abdominal incisions from previous surgeries. Normal suprapubic area : MALE GROIN/PERINEUM EXAM: No ecchymosis PENIS: normal penis MEATUS: meatus normal, no meatla discharge and No Blood at meatus present SCROTUM: Yes testes descended bilaterally, No edematous and No scrotal swelling Extremity: NARRATIVE EXTREMITY EXAM: Good range of motion. No deformity Neuro: COMMON NORMALS: no focal motor deficits SENSORIUM/ORIENTATION: Yes alert Psych: COMMON NORMALS: mental status grossly normal APPEARANCE: Yes grossly normal and Yes well kempt ATTITUDE: Yes calm and Yes engaged Skin: COMMON NORMALS: no rashes or lesions noted and no jaundice GENERAL SKIN EXAM: no rashes or lesions noted A&P Assessment and plan (1) Urethral stricture, postoperative: Longstanding history of severe urethral stricture disease complicated by very poor compliance on recommended follow-up. Has required multiple interventions for dilation each more tenuous over time. Presented now with dribbling of urination but still with relatively adequate emptying of the bladder. I have recommended a cystoscopy under anesthesia with dilation and if possible enough to pass the catheter into the bladder through the urethra. And if not then place a suprapubic tube percutaneously or open. I have emphasized with him the importance of follow-up in these types of situations as has been recommended. I reviewed that placement of a suprapubic tube is essentially failure of adequate stricture patency maintenance and that his decisions and historically poor compliance have increased the chance that he will end up with a suprapubic tube. He expresses understanding regarding that. Benefits risks potential complications alternatives fully explained. Informed consent obtained. Status: Chronic (2) Uric acid urolithiasis: Previously requiring multiple interventions both endoscopic and ESWL. CT scan thankfully shows no evidence of recurrent stones. Previously had been placed on POTASSIUM CITRATE but currently his medicine list includes potassium and CHLORIDE. Status: Chronic Consult Attestations Medical Necessity Statement: Severe recurrent urethral stricture with near retention. Concern for infection.. No evidence of upper urinary tract obstruction. Has been treated with antibiotics and will require surgical intervention for urethral stricture. Coding Level of Care Code Acute Knitting Machine Fixer for [facility] Diagnoses Urethral stricture, postoperative Uric acid urolithiasis N20.9
[2020-09-21 07:04] LABS: Glucose Point of Care 124 mg/dL (70-110)
[2020-09-21 10:43] LABS: Glucose Point of Care 101 mg/dL (70-110)
--- NOTE | 2020-09-21 11:53 | PC.CHAP ---
Pastoral Care Encounter/Spiritual Assessment Type of Contact [] Declined occupational therapy director visit [] Patient/Family/Request visit [] Outpatient visit [] Follow-up visit [] Physician referral [] Code/Alert [x] Routine visit [] Staff referral [] Actively dying [] Patient sleeping [] Family support [] [] Out of room [] Palliative care [] [x] Receiving care in room [] Pre-surgical visit [] Trauma [] Long length of stay [] ICU visit [] Other: Relational/Emotional Strength [x] Patient feels connected with others/family/visitors/staff [] Distress [] Loneliness/isolation [] Abandonment Spirituality of Patient [x] Person of Molly [] Attends Methodist of their Molly [] Believes in Prayer [] Reads Bible or Yazdanism materials [] There are Spiritual issues to be addressed Wildlife Science Professor Interventions [x] Prayer [x] Active listening [x] Non-anxious presence [x] Spiritual/emotional support [] Crisis/trauma care [x] Spiritual counseling [] Bereavement support [] Provided bereavement packet [] Provided Bible/devotional materials [] Provided toy/stuffed animal, coloring book to patient or family member [] Provided Communion [] Anointing/Vicco [] Salvation [x] Completed spiritual assessment [] Other: Impact on Illness or Injury [] Angry [] Fearful [x] Anxious [] Often cries [] Exhaustion [] Unable to work [] Unable to attend zoroastrian [] Unable to walk/stand [] Unable to read [] Unable to drive [] Unable to eat/drink [] Unable to sleep [] Unable to be with family [] Patient intubated [] Other: Summary Lower adium will need a procedure on stomck for blockage, not sure when he will be able to home at this point + 1 Time spent with patient 10 mins
--- NOTE | 2020-09-21 16:10 | PC.NURSE ---
Patient taken to surgery via stretcher, no distress noted.
[2020-09-21 16:20] LABS: Glucose Point of Care 76 mg/dL (70-110)
--- NOTE | 2020-09-21 16:33 | PM.OP ---
Operative Report Date of procedure: September 21, 2020 Pre-op Diagnosis: Severe panurethral stricture disease Post-op diagnosis: same Procedure Done: 1. Cystoscopy with urethral dilation Pathology: none sent Surgeon: Harris Anesthesia: General Estimated blood loss: Minimal Urine output: Not measured Complications: None Findings: 1. Very tight bulbar/membranous urethral stricture requiring guidewire placement. Effectively dilated with balloon dilators up to 21 Malawian 2. 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 Historically when he performed self catheterization for stricture patency maintenance he did well but at times he would forego that process and ended up with progressive obstructive symptoms. He presented last night to the emergency department with those types of symptoms. He also had some flank pain but his CT scan showed no evidence of stones or obstruction of his ureters. He does have a history of uric acid urolithiasis. There was some concern for infection. His lactate was elevated so he was admitted for treatment for possible sepsis. Because of his progressive lower urinary tract symptoms and dribbling of urine it was decided to proceed with cystoscopy urethral dilation if possible and if not and suprapubic tube placement. We had a long discussion about the importance of compliance especially with follow-up visits as well as self-catheterization. As in the past he has committed to that. Procedure: After urgent evaluation examination and obtaining of informed consent he was taken to the operating suite on 09/21/2020 where general anesthesia was administered without difficulty after appropriate timeout was performed, SCDs confirmed to be functioning, preoperative antibiotics administered, beta-vee protocol confirmed. Prepped and draped in the usual sterile fashion in dorsolithotomy position paying careful attention to avoiding pressure points. 17 Malawian cystoscope with 30 degree lens was introduced into the urethra meatus. Urethra was carefully inspected. As per previous procedures he had panurethral multiple level stricture disease down to the membranous urethra where the channel became quite contorted. A flexible tip guidewire was passed through the scope but would not clearly go all the way into the bladder and seem to curl on itself. Previously a posterior false passage in the prostate had been identified and I expected that that was what was happening again. A zip wire was used but it also did the same thing. An open-ended ureteral catheter was passed over the guidewire but this also did not facilitate passage. The wires and the scope was removed. A 7 Malawian semirigid ureteroscope was then advanced into the urethra and was able to be advanced through the narrowed contorted stricture at the membranous urethra into the prostatic lumen. The true lumen was identified in a starkly anterior direction and this allowed passage of the guidewire into the bladder. The scope was removed and an open-ended ureteral catheter was passed over the guidewire into the bladder and contrast was injected to visualize the bladder more effectively during dilation. A 15 Malawian 10 cm balloon was then passed over the guidewire into the bladder across the prostatic lumen as well as the membranous and proximal bulbar urethra and then inflated to 6 eze of pressure. The balloon completely inflated. The balloon was maintained as inflated for approximately 5 minutes and then deflated and replaced with a 21 Malawian 10 cm balloon. It required 12 eze of pressure to open completely the membranous urethral stricture. The balloon remained inflated for about 5 minutes and then was deflated. Fluoroscopic guidance was used for all of the passage of the wires and instruments. The wire that the balloons were placed over was also used to advance a 14 [place]ian coud? [place] tip catheter into the bladder. A small amount of contrast was injected into the balloon to inflated and confirmed its position appropriately placed. The contrast was then irrigated out of the balloon with multiple syringes of sterile water and then the balloon was filled with 10 cc of saline. The balloon was confirmed to be functioning, the catheter snugged up against the prostatic lumen and the guidewire removed. Catheter was confirmed to be working well. The catheter was placed to dependent drainage and the procedure was completed. He tolerated procedure well without complications and was awakened in the operating room and returned to the recovery room in stable condition. PLANS: 1. Maintain inpatient status tonight with antibiotics as ordered. 2. If he looks clinically stable tomorrow I think he should be safe to go home with a catheter in place. 3. Tentatively will plan for late next week to reevaluate in clinic with cystoscopy and see if I could pass a larger catheter into the bladder for further passive dilation.
--- NOTE | 2020-09-21 16:36 | SC_ITS ---
WS: [id number] C-arm fluoroscopy of the bladder, 09/21/2020 Clinical Data: ureteral dilation Comparison: None. Findings: There is a cystoscopy tube within the bladder. There is a wire looped within the bladder. [place]/C-arm [place] for Urology Impression: C-arm fluoroscopy of the bladder.
[2020-09-21] MEDS: iohexol 300 mg/mL 50 mL Btl 20 ML XX (17:22)
--- NOTE | 2020-09-21 17:23 | PC.NURSE ---
omnipaque 20ml of 300mgi/.ml injected into urethra by dr cunningham. lot# [id number], exp 02/07/2023
[2020-09-21] MEDS: lidocaine 2% Urojet 20 mL XX (17:45)
--- NOTE | 2020-09-21 17:49 | PM.PN ---
Subjective Subjective: Interval history: He reports feels it is cold in his room, but otherwise doing all right. Denies pain or discomfort. No chest pain or pressure. No trouble breathing. Vitals/I&O/Wt Last Vital Signs Temp 97.8 F 09/21/20 16:24 Pulse 68 09/21/20 16:24 Resp 18 09/21/20 16:24 BP 118/58 09/21/20 16:24 Pulse Ox 92 09/21/20 16:24 09/21/20 09/21/20 09/21/20 06:59 14:59 22:59 Intake Total 150 / 150 1000 / 1000 Output Total 180 / 180 Balance -30 / -30 1000 / 1000 Weight last 48 hrs Weight 120.202 kg Physical Exam Const: COMMON NORMALS: no acute distress, patient oriented x3 and alert GENERAL APPEARANCE: cooperative NUTRITIONAL APPEARANCE: obese HENMT: COMMON NORMALS: oropharynx normal Neck/C-Spine: COMMON NORMALS: no JVD Resp: COMMON NORMALS: normal respiratory effort and clear to auscultation bilaterally AUSCULTATION: clear to auscultation bilaterally Cardio: COMMON NORMALS: no JVD, regular rhythm, S1 normal heart sound present, S2 normal heart sound present and No murmurs present (Cardio) RHYTHM: regular rhythm HEART SOUNDS: S1 normal heart sound present and S2 normal heart sound present GI: COMMON NORMALS: Normal to inspection, nondistended, normoactive bowel sounds present, Soft to palpation and non-tender PALPATION: Yes Soft to palpation Extremity: COMMON NORMALS: no joint enlargement and no pedal edema Neuro: COMMON NORMALS: patient oriented x3 and moves all extremities SENSORIUM/ORIENTATION: Yes alert Skin: COMMON NORMALS: no rashes or lesions noted GENERAL SKIN EXAM: no rashes or lesions noted Urinary Catheter Management^: Coude: Cath Placed During This Visit: yes Urinary Catheter Date of Insertion: 09/21/20 Urinary Catheter Time of Insertion: 17:41 Data : 09/21/20 05:20 09/21/20 05:20 A&P Assessment and plan (1) Urethral stricture: Cystoscopy and urethral dilation today. Managed per urology. Continue empiric antibiotic for now with concern for infection. Follow-up cultures. Monitor condition in the hospital. Status: Inactive (2) Abdominal pain: Some abdominal tenderness, although per documentation the right focal lower quadrant, however, during discussion points more to the left. Not sure if this is shifted. Abdomen is soft. Continue evaluations. Status: Acute Additional A&P Information Chronic hypoxic respiratory failure Auto CPAP with oxygen supplementation No acute exacerbation currently saturating well on 2 L. At home reports currently on . Emesis: So far no recurrence Full code DVT prophylaxis SCDs, monitor for hematuria Attestations Medical Necessity Statement*: Continue admission for assessment management of urethral stricture, reassessment following cystoscopy and dilation, suspect infection, in agreement with underlying chronic kidney disease, monitoring of abdominal tenderness, possible presyncopal event at home. Coding Level of Care Code Acute Product Safety Technical Assistant for [facility] Diagnoses Urethral stricture N35.919 Abdominal pain R10.9
--- NOTE | 2020-09-21 18:07 | ANES.PREANE2 ---
Pre-Anesthetic Assessment Pre-Anesthetic Assessment: Height/Weight: Height 1.7 m Weight 120.202 kg Temp Pulse Resp BP Pulse Ox 97.8 F 68 18 118/58 92 09/21/20 16:24 09/21/20 16:24 09/21/20 16:24 09/21/20 16:24 09/21/20 16:24 Preop Diagnosis: Severe panurethral stricture disease Proposed Procedure: Operation Date: 09/21/20 17:00 Proposed Procedures p Suprapubic Catheter Placement(Not Applicable) - Jorge Iglesias MD s Cystoscopy(Not Applicable) - Jorge Iglesias MD s Urethral Dilation(Not Applicable) - Jorge Iglesias MD Was Beta Farzad taken within 24 hours: Yes Was Clonidine taken within 24 hours: N/A Last intake: Intake Last Liquid Date 09/10/20 Last Liquid Time 23:30 Last Solid Date 09/20/20 Last Solid Time 23:30 Social: Social History: Tobacco and No alcohol Exam: Pre-Anes Outpt Exam: alert, oriented x 3 and regular rate & rhythm Airway: Submandibular: WNL Cervical ROM: WNL MP: 2 Dentition: False Pulmonary: Pulmonary: COPD CV/HEM: CV/HEM: CAD (CABG), CHF and HTN Metabolic: Metabolic: DM Anesthetic Plan: ASA status: 3 Anesthesia: General Risk of > 500 ml blood loss (7ml/kg in children): No Meds/Allergies Current Medications: Current Medications Generic Name Dose Route Start Last Admin Trade Name Freq PRN Reason Stop Dose Admin Aspirin 81 mg 09/21/20 06:00 09/21/20 05:43 Aspirin 81 Mg Ec Tablet PO 81 mg DAILY@0600 VIRGIL Administration Atorvastatin Calci um 20 mg 09/21/20 06:00 09/21/20 05:46 Atorvastatin 40 Mg Tablet PO 20 mg DAILY@0600,1800 S [facility] Administration Gabapentin 100 mg 09/21/20 06:00 09/21/20 10:53 Gabapentin 100 M g Capsule PO Not Given TID@,18 VIRGIL Sodium Chloride 1,000 mls @ 30 ml s/hr 09/21/20 04:00 09/21/20 16:37 Sodium Chloride 0.9% IV 30 mls/hr .Q24H VIRGIL Administration Insulin Aspart 0 unit 09/21/20 08:00 09/21/20 10:53 Insulin Aspart 1 00 Unit/1 Ml SUBCUT Not Given WM&BEDTIME REPLACED BY [facility] Protocol Insulin Glargine 40 unit 09/21/20 06:00 09/21/20 05:48 Insulin Glargine 100 Units/1 Ml SUBCUT 40 unit DAILY@0600 REPLACED BY [facility] Administration Isosorbide Mononit rate 10 mg 09/21/20 06:00 09/21/20 12:11 Isosorbide [place] itrate 20 Mg Table t PO Not Given BID@0600,1300 REPLACED BY [facility] Metoprolol Tartrat e 50 mg 09/21/20 06:00 09/21/20 05:47 Metoprolol Tartr ate 50 Mg Tablet PO 50 mg BID@0600,1800 REPLACED BY [facility] Administration Fluticasone/Salmet fabian 1 puff 09/21/20 08:00 09/21/20 08:38 Fluticasone-Salm eterol 250-50 Disk us INHALATION 1 puff BID.RESPIRATORY S CH Administration PFSH Anesthesia PFSH: Medical History Congestive heart failure COPD (chronic obstructive pulmonary disease) Coronary artery disease CABG x 4 in 2011, history of sternal nonunion. 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 Complicating treatment of stones Uric acid urolithiasis Surgical History History of quadruple bypass Hx of lithotripsy Status post placement of ureteral stent Family History Mother , at age 76 COPD (chronic obstructive pulmonary disease) Father , at age 68-aortic aneurysm No problems noted. Social History Smoking and tobacco status: former smoker Alcohol intake: former Marital status: Current occupational status: retired Current gender identity: Male Data Anesthesia CBC & Chem 7: 09/21/20 05:20 09/21/20 05:20 Other Labs: Laboratory Results - last 48 hr 09/20/20 09/20/20 09/20/20 18:49 18:49 18:49 WBC 11.1 H RBC 4.60 Hgb 15.1 Hct 46.7 MCV 101.5 H MCH 32.8 MCHC 32.3 RDW 13.9 Plt Count 176 MPV 11.1 H Neut % (Auto) 63.8 Lymph % (Auto) 26.0 Bent % (Auto) 5.6 Eos % (Auto) 3.3 Baso % (Auto) 0.8 Neut # (Auto) 7.10 Lymph # (Auto) 2.9 Bent # (Auto) 0.6 Eos # (Auto) 0.4 Baso # (Auto) 0.1 Nucleated RBC % (auto) 0 Nucleated RBCs # 0.0 Sodium 139 Potassium 4.5 Chloride 103 Carbon Dioxide 25 Anion Gap 15.5 BUN 16 Creatinine 1.3 H GFR Calculation Not Reportable Glucose 257 H POC Glucose Calculated Osmolality 298 H Lactate 3.0 H Calcium 9.3 Total Bilirubin 0.5 AST 15 ALT 12 Alkaline Phosphatase 53 Troponin T Baseline NT-Pro-B Natriuret Pep 234 H Total Protein 6.1 L Albumin 4.1 Globulin 2.0 Lipase 22 Urine Color Urine Appearance Urine pH Ur Specific Joes Urine Protein Urine Glucose (UA) Urine Ketones Urine Blood Urine Nitrate Urine Bilirubin Urine Urobilinogen Ur Leukocyte Esterase Urine RBC Urine WBC Ur Squamous Epith Cells Amorphous Sediment Urine Bacteria 09/20/20 09/20/20 09/20/20 18:49 23:00 23:44 WBC RBC Hgb Hct MCV MCH MCHC RDW Plt Count MPV Neut % (Auto) Lymph % (Auto) Bent % (Auto) Eos % (Auto) Baso % (Auto) Neut # (Auto) Lymph # (Auto) Bent # (Auto) Eos # (Auto) Baso # (Auto) Nucleated RBC % (auto) Nucleated RBCs # Sodium Potassium Chloride Carbon Dioxide Anion Gap BUN Creatinine GFR Calculation Glucose POC Glucose 133 H Calculated Osmolality Lactate Calcium Total Bilirubin AST ALT Alkaline Phosphatase Troponin T Baseline 28 H NT-Pro-B Natriuret Pep Total Protein Albumin Globulin Lipase Urine Color Brown Urine Appearance Cloudy Urine pH 5 Ur Specific Joes 1.025 Urine Protein 2+ H Urine Glucose (UA) Trace H Urine Ketones 1+ H Urine Blood 3+ H Urine Nitrate Negative Urine Bilirubin 1+ H Urine Urobilinogen 1 H Ur Leukocyte Esterase 1+ H Urine RBC Too numerous to cnt H Urine WBC 15-25 H Ur Squamous Epith Cells 0-4 H Amorphous Sediment 4+ Urine Bacteria 2+ H 09/21/20 09/21/20 09/21/20 05:20 05:20 06:33 WBC 8.8 RBC 4.19 Hgb 13.9 Hct 42.7 MCV 101.9 H MCH 33.2 MCHC 32.6 RDW 13.9 Plt Count 162 MPV 11.0 H Neut % (Auto) 56.7 Lymph % (Auto) 30.2 Bent % (Auto) 7.5 Eos % (Auto) 4.2 Baso % (Auto) 0.8 Neut # (Auto) 4.97 Lymph # (Auto) 2.7 Bent # (Auto) 0.7 Eos # (Auto) 0.4 Baso # (Auto) 0.1 Nucleated RBC % (auto) 0 Nucleated RBCs # 0.0 Sodium 141 Potassium 4.3 Chloride 103 Carbon Dioxide 29 Anion Gap 13.3 BUN 16 Creatinine 1.3 H GFR Calculation Not Reportable Glucose 117 H POC Glucose 124 H Calculated Osmolality 294 Lactate Calcium 8.9 Total Bilirubin AST ALT Alkaline Phosphatase Troponin T Baseline NT-Pro-B Natriuret Pep Total Protein Albumin Globulin Lipase Urine Color Urine Appearance Urine pH Ur Specific Joes Urine Protein Urine Glucose (UA) Urine Ketones Urine Blood Urine Nitrate Urine Bilirubin Urine Urobilinogen Ur Leukocyte Esterase Urine RBC Urine WBC Ur Squamous Epith Cells Amorphous Sediment Urine Bacteria 09/21/20 09/21/20 10:38 16:10 WBC RBC Hgb Hct MCV MCH MCHC RDW Plt Count MPV Neut % (Auto) Lymph % (Auto) Bent % (Auto) Eos % (Auto) Baso % (Auto) Neut # (Auto) Lymph # (Auto) Bent # (Auto) Eos # (Auto) Baso # (Auto) Nucleated RBC % (auto) Nucleated RBCs # Sodium Potassium Chloride Carbon Dioxide Anion Gap BUN Creatinine GFR Calculation Glucose POC Glucose 101 76 Calculated Osmolality Lactate Calcium Total Bilirubin AST ALT Alkaline Phosphatase Troponin T Baseline NT-Pro-B Natriuret Pep Total Protein Albumin Globulin Lipase Urine Color Urine Appearance Urine pH Ur Specific Joes Urine Protein Urine Glucose (UA) Urine Ketones Urine Blood Urine Nitrate Urine Bilirubin Urine Urobilinogen Ur Leukocyte Esterase Urine RBC Urine WBC Ur Squamous Epith Cells Amorphous Sediment Urine Bacteria Cardiac Studies: No Data to Display
[2020-09-21 18:13] LABS: Glucose Point of Care 75 mg/dL (70-110)
--- NOTE | 2020-09-21 18:35 | SUR.PHASEI ---
1820 PT AWAKE ALERT DRANK CONTAINER OF GRAPE JUICE, PT [id number] PRE SURGERY PT TO FLOOR WITH FOLEYCATHETER, BLOOD COLORED CLEAR URINE IV PATENT PT UP AND WALKED TO BED , HANDOFF AT BEDSIDE.
--- NOTE | 2020-09-21 18:37 | ANE.PACU2 ---
Inpatient post-anesthesia follow up: Airway intact: Yes Vital signs: Temperature 97.4 F Pulse Rate [Monito r] 68 Pulse Rate 71 Respiratory Rate 18 Blood Pressure [Ri ght Arm] 163/83 Blood Pressure 107/62 Pulse Oximetry 92 Oxygen Delivery Me thod Simple Mask Oxygen Flow Rate 8 Fraction of Inspir ed Oxygen Hydration adequate: Yes Nausea and vomiting: No Pain level: 2 Mental status: Baseline
--- NOTE | 2020-09-21 18:41 | PC.NURSE ---
Patient returned from surgery, vitals stable as documented, alert and oriented X3, rooney catheter draining blood tinged urine, secured in place and hung below bladder, no pain or nausea, eating supper, call light in reach, side rails up X2, SCD's in place.
[2020-09-21 18:42] LABS: Glucose Point of Care 98 mg/dL (70-110)
--- NOTE | 2020-09-21 19:00 | PC.NURSE ---
report given to Elvin relinquished care of patient.
[2020-09-21] MEDS: levofloxacin-dextrose 5 % 750 MG/150 ML PREMIX 100 MG IV (21:16)
[2020-09-22] VITALS (8 sets, daily range): BP systolic 107–126; BP diastolic 62–74; PULSE 66–72; RESP 18; TEMP 36.5–36.9; O2SAT 92–94
[2020-09-22 00:31] LABS: Glucose Point of Care 130 mg/dL (70-110)
[2020-09-22] MEDS: aspirin 81 mg EC Tablet PO (05:41)
[2020-09-22] MEDS: isosorbide mononitrate 20 mg Tablet 10 MG PO ×2 (05:41→13:22)
[2020-09-22] MEDS: gabapentin 100 mg Capsule PO ×2 (05:42→13:23)
[2020-09-22] MEDS: atorvastatin 40 mg Tablet 20 MG PO (05:42)
[2020-09-22] MEDS: insulin glargine 100 units/1 mL 40 UNIT SUBCUT (05:42)
[2020-09-22] MEDS: metoprolol tartrate 50 mg Tablet PO (05:42)
[2020-09-22 05:56] LABS: Basophils # 0.1 10^3/uL (0.0-0.1); Basophils % 0.6 %; Eosinophils # 0.4 10^3/uL (0.0-0.8); Eosinophils % 4.7 %; Hematocrit 41.4 % (42.0-52.0); Hemoglobin 13.4 g/dL (11.7-16.6); Lymphocytes # 2.2 10^3/uL (0.8-4.8); Lymphocytes % 26.5 %; Mean Corpuscular HGB Conc 32.4 g/dL (30.0-36.0); Mean Corpuscular Hemoglobin 32.8 pg (28.0-34.0); Mean Corpuscular Volume 101.2 fL (80-94); Mean Platelet Volume 10.6 fL (7.4-10.4); Monocytes # 0.6 10^3/uL (0.2-0.9); Monocytes % 6.6 %; Neutrophils # 5.08 10^3/uL (1.8-7.7); Neutrophils % 61.1 %; Nucleated Red Blood Cells % 0 %; Platelet Count 150 10^3/cmm (130-400); Red Blood Count 4.09 10^6/uL (4.1-5.3); Red Cell Distribution Width 14.1 % (12.1-15.1); White Blood Count 8.3 10^3/uL (4.0-10.0)
[2020-09-22 06:16] LABS: Anion Gap 14.4 (5-19); Blood Urea Nitrogen 14 mg/dL (8-23); Calcium 8.6 mg/dL (8.5-10.5); Carbon Dioxide 27 mmol/L (22-29); Chloride 103 mmol/L (98-107); Glucose 111 mg/dL (65-115); Osmolality Calculated 291 mOsm/kg (285-295); Potassium 4.4 mmol/L (3.5-5.1); Sodium 140 mmol/L (136-145)
[2020-09-22 07:17] LABS: Glucose Point of Care 113 mg/dL (70-110)
[2020-09-22 11:24] LABS: Glucose Point of Care 177 mg/dL (70-110)
--- NOTE | 2020-09-22 12:51 | P.DS_ITS ---
Discharge Providers Date of Admission: 09/20/20 21:32 Date of Discharge: September 22, 2020 Attending Provider at Admission: Stefan Shaikh MD Attending Provider at Discharge: Steve Barnes Primary Care Provider: NEAL Rivera Diagnoses at Discharge Discharge Diagnosis (1) Urethral stricture: Status: Inactive (2) Abdominal pain: Status: Acute Reason for Visit Reason for Visit: LOWER ABD PAIN/R FLANK PAIN Hospital Course Hospital Course Pleasant 74-year-old gentleman with history of urethral stricture, urolithiasis, past interventions, on SCIS program with 16 [place] catheter was admitted after presenting with right flank pain associated with 3 episodes of emesis, with finding him at home lethargic. CT abdomen pelvis was assessed and did not show hydronephrosis or other acute abnormalities. Noted decompressed bladder. He was afebrile, creatinine close to baseline at 1.3. Lasix were transiently held. Was assessed by urology due to urethral stricture, and was treated with antibiotic for possible complicated nonobstructive ascending urinary infection based on his urinalysis, leukocytosis and clinical presentation. Likely no urolithiasis noted this admission. Urine culture so far without growth, but final cultures pending. Will need to be followed up. Will complete brief antibiotic course with Levaquin. Due to dribbling of urination presentation, with adequately emptying bladder additionally underwent cystoscopy under anesthesia, dilation of urethra and placement of Folres catheter. Noted mild persistent hematuria reassessed by urology today, otherwise, however, he is doi ng well. No pain today. He request to be discharged home without delay if possible. There has been no recurrence of emesis or other discomfort. He is encouraged to maintain hydration. For now due to underlying cardiac disease continue low-dose aspirin, however, discontinue aspirin in case of worsening hematuria, is asked to seek medical attention in case of any difficulties. Flores catheter is left in place until follow-up with urology. He understands the urine culture is not final, and will need to be followed up and that antibiotic coverage for UTI may change if necessary. Physical Exam Narrative: EXAM NARRATIVE: Sitting up in chair. Comfortable. Visitor at bedside. He denies any complaints. Eager to be discharged home. Const: COMMON NORMALS: no acute distress, patient oriented x3 and alert GENERAL APPEARANCE: cooperative NUTRITIONAL APPEARANCE: obese HENMT: COMMON NORMALS: oropharynx normal Neck/C-Spine: COMMON NORMALS: no JVD Resp: COMMON NORMALS: normal respiratory effort and clear to auscultation bilaterally AUSCULTATION: clear to auscultation bilaterally Cardio: COMMON NORMALS: no JVD, regular rhythm, S1 normal heart sound present, S2 normal heart sound present and No murmurs present (Cardio) RHYTHM: regular rhythm HEART SOUNDS: S1 normal heart sound present and S2 normal heart sound present GI: COMMON NORMALS: Normal to inspection, nondistended, normoactive bowel sounds present, Soft to palpation and non-tender PALPATION: Yes Soft to palpation : OTHER: Mild hematuria noted in Flores bag Extremity: COMMON NORMALS: no joint enlargement and no pedal edema Neuro: COMMON NORMALS: patient oriented x3 and moves all extremities SENSORIUM/ORIENTATION: Yes alert Skin: COMMON NORMALS: no rashes or lesions noted GENERAL SKIN EXAM: no rashes or lesions noted Urinary Catheter Management^: Coude: Cath Placed During This Visit: yes Reason for Continuing Indwelling Catheter: Required Immobilization for Trauma or Surgery or Anesthesia Urinary Catheter Date of Insertion: 09/21/20 Urinary Catheter Time of Insertion: 17:41 Discharge Data Data Completed and Pending: Completed Studies During Hospitalization Category Date Time Status CT kidney stone 7 4176 Urgent Cat Scan 09/20/20 18:34 Completed XR chest 1V drew ble [id number] Urgent Exams 09/20/20 18:34 Completed Pending at discharge Category Date Time Status C-arm Fluoroscopy [id number] Routine Exams 09/21/20 16:36 Taken Basic Metabolic P earl AM LABS Lab 09/23/20 04:00 Ordered Basic Metabolic P earl AM LABS Lab 09/24/20 04:00 Ordered Complete Blood Co unt w/Auto AM LABS Lab 09/23/20 04:00 Ordered Complete Blood Co unt w/Auto AM LABS Lab 09/24/20 04:00 Ordered Urine Culture Sta t Lab 09/20/20 23:00 Results Labs from last 24 hours 09/22/20 09/22/20 09/22/20 11:07 06:39 05:50 WBC RBC Hgb Hct MCV MCH MCHC RDW Plt Count MPV Neut % (Auto) Lymph % (Auto) Charlton % (Auto) Eos % (Auto) Baso % (Auto) Neut # (Auto) Lymph # (Auto) Charlton # (Auto) Eos # (Auto) Baso # (Auto) Nucleated RBC % (a uto) Nucleated RBCs # Sodium 140 Potassium 4.4 Chloride 103 Carbon Dioxide 27 Anion Gap 14.4 BUN 14 Creatinine 1.3 H GFR Calculation Not Reportable Glucose 111 POC Glucose 177 H 113 H Calculated Osmolal ity 291 Calcium 8.6 09/22/20 09/21/20 09/21/20 05:50 20:40 18:38 WBC 8.3 RBC 4.09 L Hgb 13.4 Hct 41.4 L MCV 101.2 H MCH 32.8 MCHC 32.4 RDW 14.1 Plt Count 150 MPV 10.6 H Neut % (Auto) 61.1 Lymph % (Auto) 26.5 Charlton % (Auto) 6.6 Eos % (Auto) 4.7 Baso % (Auto) 0.6 Neut # (Auto) 5.08 Lymph # (Auto) 2.2 Charlton # (Auto) 0.6 Eos # (Auto) 0.4 Baso # (Auto) 0.1 Nucleated RBC % (a uto) 0 Nucleated RBCs # 0.0 Sodium Potassium Chloride Carbon Dioxide Anion Gap BUN Creatinine GFR Calculation Glucose POC Glucose 130 H 98 Calculated Osmolal ity Calcium 09/21/20 09/21/20 17:00 16:10 WBC RBC Hgb Hct MCV MCH MCHC RDW Plt Count MPV Neut % (Auto) Lymph % (Auto) Charlton % (Auto) Eos % (Auto) Baso % (Auto) Neut # (Auto) Lymph # (Auto) [place]ton # (Auto) Eos # (Auto) Baso # (Auto) Nucleated RBC % (a uto) Nucleated RBCs # Sodium Potassium Chloride Carbon Dioxide Anion Gap BUN Creatinine GFR Calculation Glucose POC Glucose 75 76 Calculated Osmolal ity Calcium Vitals: Last Vital Signs Temp 97.7 F 09/22/20 11:09 Pulse 72 09/22/20 11:09 Resp 18 09/22/20 11:09 BP 126/74 09/22/20 11:09 Pulse Ox 94 09/22/20 11:09 Discharge Plan Discharge Patient Disposition: Home Condition: Stable Prescriptions: New levofloxacin 750 mg tablet 750 mg PO DAILY 3 Days Qty: 3 RF: 0 Continued pravastatin [Pravachol] 40 mg Tablet 40 mg PO DAILY@0600,1800 RF: 0 gabapentin 300 mg Capsule 300 mg PO TID@06,12,18 RF: 0 albuterol sulfate 90 mcg/actuation Hfa Aerosol Inhaler 2 puff INHALATION Q6H PRN (Reason: Wheezing) RF: 0 budesonide-formoterol [Symbicort] 160-4.5 mcg/actuation Hfa Aerosol Inhaler 2 puff INHALATION BID RF: 0 glipizide 10 mg Tablet 10 mg PO BID@0600,1800 RF: 0 aspirin 81 mg Tablet,Delayed Release (Dr/Ec) 81 mg PO DAILY@0600 RF: 0 ergocalciferol (vitamin D2) [Vitamin D2] 50,000 unit Capsule 50,000 unit PO DAILY@0600 RF: 0 Lantus U-100 Insulin 100 unit/mL solution 50 unit SUBCUT DAILY@0600 RF: 0 alogliptin 25 mg tablet 25 mg PO DAILY@0600 RF: 0 Hold Instructions: Resume on 07/19/19. metoprolol tartrate 25 mg tablet 50 mg PO BID@0600,1800 RF: 0 lisinopril 5 mg tablet 10 mg PO DAILY@0600 RF: 0 furosemide 40 mg tablet 20 mg PO DAILY@0600 RF: 0 isosorbide mononitrate 20 mg tablet 10 mg PO BID@0600,1300 RF: 0 potassium chloride 20 mEq tablet extended release 20 meq PO BID@0600,1800 RF: 0 Discharge Orders: Discharge Order (Routine); Ordered 09/22/20 Ordered By: Jorge Iglesias Referrals: Jorge Iglesias MD [Physician] - 09/29/20 12:00 pm (Possible cystoscopy and change catheter over guidewire) Moriah Chaparro FNP [Primary Care Provider] - 4-7 days (Please call to schedule a follow up appointment. ) Discharge Diet: Cardiac and Diabetic Discharge Activity: Oxygen as instructed and Cpap/Bipap as instructed Patient Instructions: Cystoscopy, Levofloxacin (By mouth), Flores Catheter Care, Flores Catheter Placement and Care (GEN), Urinary Leg Bag (GEN) Activity Restrictions/Additional Instructions: Urology instructions: 1. We will plan on trying to place a bigger catheter next week after you have had at least 1 week of passive dilation. 2. It is likely that she will still see some blood in your urine. Drinking more fluids will help reduce the risk of clots forming and plugging the catheter. 3. Please call if you have problems with catheter function before that time. Discharge Attestations Time Spent in Discharge Care*: greater than 30 min Quality Metrics Clinical Quality Measures During this hospital stay, did patient experience: None Coding Level of Care Code Acute Chg FW MN note Diagnoses Urethral stricture N35.919 Abdominal pain R10.9
--- NOTE | 2020-09-22 14:10 | PC.NURSE ---
discharge instructions were gone over with patient and significant other, both verbalized understanding. during instructions patient informed this nurse that the designated pharmacy for the medication pickling grader was incorrect and this nurse called the [facility] pharmacy in [place] to call in the prescription since this was the place of choice for the patient. IV was removed, tip intact, bleeding controlled with 2x2 and coban. patient was taken by wheelchair accompanied by significant other and friend to private vehicle.
--- NOTE | 2020-09-22 15:10 | PM.PN ---
Subjective Subjective: Interval history: Postoperative day #1, urology follow-up: Did well overnight. Urine remained slightly bloody but no problems with drainage. No clot retention. No severe pain. No fevers or chills. He is feeling better. No sign of progression of UTI/infectious concerns. Seems very motivated to carry out plans that we spoke of with great emphasis yesterday. Dr. Soler felt that he was safe for discharge and from a urologic perspective I think that is also true. Vitals/I&O/Wt Last Vital Signs Temp 97.7 F 09/22/20 14:19 Pulse 72 09/22/20 14:19 Resp 18 09/22/20 14:19 BP 126/74 09/22/20 14:19 Pulse Ox 94 09/22/20 14:19 09/22/20 09/22/20 09/22/20 06:59 14:59 22:59 Intake Total 150 / 1150 480 / 480 Output Total 475 / 775 Balance -325 / 375 480 / 480 Weight last 48 hrs Weight 265 lb Physical Exam Const: COMMON NORMALS: no acute distress, alert and well nourished GENERAL APPEARANCE: well kempt and well developed ORIENTATION/CONSCIOUSNESS: not confused Eye: COMMON NORMALS: conjunctivae normal and no scleral icterus CONJUNCTIVA: Yes conjunctivae normal Neck/C-Spine: COMMON NORMALS: full ROM GENERAL: Yes normal visual inspection Resp: COMMON NORMALS: normal respiratory effort EFFORT & INSPECTION: No labored and No Actively coughing Neuro: SENSORIUM/ORIENTATION: Yes alert Psych: COMMON NORMALS: mental status grossly normal APPEARANCE: Yes grossly normal and Yes well kempt ATTITUDE: Yes calm and Yes engaged Skin: COMMON NORMALS: no rashes or lesions noted and no jaundice GENERAL SKIN EXAM: no rashes or lesions noted Urinary Catheter Management^: Coude: Cath Placed During This Visit: yes Reason for Continuing Indwelling Catheter: Required Immobilization for Trauma or Surgery or Anesthesia Urinary Catheter Date of Insertion: 09/21/20 Urinary Catheter Time of Insertion: 17:41 Data : 09/22/20 05:50 09/22/20 05:50 Micro: Microbiology 09/20/20 23:00 Urine Culture - Preliminary Urine,Clean Catch A&P Assessment and plan (1) Urethral stricture: Complex bulbar urethral stricture extending into the membranous urethra with acute worsening after failing to continue SCIC program for stricture patency maintenance. Adequately dilated this visit and catheter placed for further passive dilation. 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 Also complicates catheter placement if the stricture dilated this time is still possible. May require posterior floor incision to help facilitate catheter passage in future. Status: Acute Attestations Medical Necessity Statement*: Ready for discharge Coding Level of Care Code Acute [facility] Fwd Diagnoses Urethral stricture N35.919 Uric acid urolithiasis N20.9 False passage of urethra N36.5
== END 2020-09-22 13:45 | disposition home or self-care (01) | DRG 697 ==
LOC: ER 22:27 → MEDSURG 22:29
PROVIDERS: Urology; Admitting Provider Internal Medicine; Emergency Provider Family Medicine; PCP Nurse Practitioner; Visit Provider Internal Medicine
PROC: 0TJB8ZZ Inspection of Bladder, Via Natural or Artificial Opening Endoscopic (ICD-10-PCS; CPT 52000; 2020-09-21 17:00)
PROC: 0T7D8DZ Dilation of Urethra with Intraluminal Device, Via Natural or Artificial Opening Endoscopic (ICD-10-PCS; 2020-09-21 17:00)
DX: N99.112 Postprocedural membranous urethral stricture, male (principal); E87.2 Acidosis; J96.11 Chronic respiratory failure with hypoxia; N39.0 Urinary tract infection, site not specified; N36.5 Urethral false passage; E86.0 Dehydration; I50.9 Heart failure, unspecified; J44.9 Chronic obstructive pulmonary disease, unspecified; I25.10 Atherosclerotic heart disease of native coronary artery without angina pectoris; Z95.1 Presence of aortocoronary bypass graft; E11.42 Type 2 diabetes mellitus with diabetic polyneuropathy; E11.22 Type 2 diabetes mellitus with diabetic chronic kidney disease; N18.9 Chronic kidney disease, unspecified; E78.00 Pure hypercholesterolemia, unspecified; Z87.442 Personal history of urinary calculi; Z99.81 Dependence on supplemental oxygen; G47.30 Sleep apnea, unspecified; Z87.891 Personal history of nicotine dependence; Z91.19 Patient's noncompliance with other medical treatment and regimen; R31.9 Hematuria, unspecified; Z79.4 Long term (current) use of insulin; Z79.51 Long term (current) use of inhaled steroids
CPT/HCPCS: 36415; 36416; 71045; 74176; 76000; 80048; 80053; 81001; 82962; 83605; 83690; 83880; 84484; 85025; 87086; 93005; 94640; 96361; 96365; 96367; 96372; 96375; 99285; J0330; J1170; J1815 ×2; J1956; J2370; J2405; J2704; J3010; J3490; J7030; Q9967

== ENCOUNTER 2020-09-23 08:36 | Emergency (ER) | payer OTHER, MEDICARE, SELFPAY ==
[2020-09-23 08:43] VITALS: BP 131/74; PULSE 88; RESP 26; TEMP 37; O2SAT 81; BMI 41.5
[2020-09-23 08:45] VITALS: O2SAT 96
--- NOTE | 2020-09-23 08:59 | W.ED.MALEGU ---
HPI - Male Genitourinary General: Chief complaint: Urogenital-Male Stated complaint: post op/ bag leaking Time Seen by Provider: 09/23/20 08:45 Source: patient and old records reviewed Mode of arrival: ambulatory Limitations: no limitations History of Present Illness: HPI Narrative: Patient presents with his Flores catheter leaking around his meatus. Patient had urethral dilation yesterday and a Flores placed and was just discharged yesterday. He denies any pain he denies any blood in his urine he denies any shortness of breath but says he did not wear his oxygen last night like he is supposed to he has COPD denies any chest pain Review of Systems Narrative: General: denies fatigue, fever or chills HEENT: denies ear pain, denies nasal congestion, denies vision changes, denies sore throat Neck: denies masses or pain Resp: denies cough, denies shortness of breath, denies pleuritic pain Cardio: denies chest pain, denies edema GI: denies abdominal pain, denies N/V/D, denies black/tarry or bloody stools : denies hematuria, denies dysuria see HPI Neuro: denies headache, denies dizziness, denies motor or sensory changes Musculoskeletal: denies pain, denies swelling Skin: denies rashes Psych: denies SI or HI Endocrine: denies thyroid symptoms, denies lymphadenopathy all over ROS reviewed and patient denies PFSH ED PFSH: Medical History Congestive heart failure COPD (chronic obstructive pulmonary disease) Coronary artery disease CABG x 4 in 2011, history of sternal nonunion. 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 Complicating treatment of stones Uric acid urolithiasis Surgical History History of quadruple bypass Hx of lithotripsy Status post placement of ureteral stent Family History Mother , at age 76 COPD (chronic obstructive pulmonary disease) Father , at age 68-aortic aneurysm No problems noted. Social History Smoking and tobacco status: former smoker Alcohol intake: former Marital status: Current occupational status: retired Current gender identity: Male Physical Exam Narrative: EXAM NARRATIVE: General: a/o/3, no distress Head: atraumatic HEENT: normal eyes, normal conjunctiva, normal hearing, normal external nose, normal mouth, mucous membranes moist Neck: FROM, trachea midline Chest: normal expansion, no gross deformities Resp: normal speech, no retractions, no accessory muscle use, CTA bilaterally Cardio: regular rate and rhythm and no murmur, no peripheral edema, normal peripheral pulses GI: soft, flat non tender, no guarding normal BS : deferred Musculoskeletal: FROM, no pain or gross deformities Neuro: a/o appropriate for age, no gross motor or sensory deficitys, CN II-XII grossly intact, normal coordination, normal speech Skin: no rashes Psych: cooperative, normal mood and effect Course Vital Signs: Vital signs: Vital Signs Temperature 98.6 F 09/23/20 08:43 Pulse Rate 88 09/23/20 08:43 Respiratory Rate 26 H 09/23/20 08:43 Blood Pressure 131/74 09/23/20 08:43 Pulse Oximetry 96 09/23/20 08:45 MDM - Male MDM Narrative: Medical decision making narrative: Patient's O2 sat in the room were in the upper 70s he ambulated back from triage without any oxygen on he says he did not wear his oxygen last night he was placed on 2 L he normally wears 3 L and his O2 sats were 94% he denies feeling short of breath he says he has COPD it feels usual for him he has a nebulizer at home and oxygen I offered to do a chest x-ray since he just had an intubation and he refuses says he really does not feel it is needed and he feels fine he will just wear his oxygen today and do some breathing treatments and return if worsening of symptoms he rather just be discharged and get about his weekend he understands the risks of COPD and respiratory distress his is with him and will return if he has worsening of symptoms Nursing staff adjusted the balloon deflated it and reinserted some fluids does not appear to be leaking at this time catheter is draining well Medical Records: Attestation: I reviewed the patient's medical records. Discharge Plan Discharge Condition: Stable Prescriptions: No Action pravastatin [Pravachol] 40 mg Tablet 40 mg PO DAILY@0600,1800 RF: 0 gabapentin 300 mg Capsule 300 mg PO TID@06,12,18 RF: 0 albuterol sulfate 90 mcg/actuation Hfa Aerosol Inhaler 2 puff INHALATION Q6H PRN (Reason: Wheezing) RF: 0 budesonide-formoterol [Symbicort] 160-4.5 mcg/actuation Hfa Aerosol Inhaler 2 puff INHALATION BID RF: 0 glipizide 10 mg Tablet 10 mg PO BID@0600,1800 RF: 0 aspirin 81 mg Tablet,Delayed Release (Dr/Ec) 81 mg PO DAILY@0600 RF: 0 ergocalciferol (vitamin D2) [Vitamin D2] 50,000 unit Capsule 50,000 unit PO DAILY@0600 RF: 0 Lantus U-100 Insulin 100 unit/mL solution 50 unit SUBCUT DAILY@0600 RF: 0 alogliptin 25 mg tablet 25 mg PO DAILY@0600 RF: 0 Hold Instructions: Resume on 07/19/19. metoprolol tartrate 25 mg tablet 50 mg PO BID@0600,1800 RF: 0 lisinopril 5 mg tablet 10 mg PO DAILY@0600 RF: 0 furosemide 40 mg tablet 20 mg PO DAILY@0600 RF: 0 isosorbide mononitrate 20 mg tablet 10 mg PO BID@0600,1300 RF: 0 potassium chloride 20 mEq tablet extended release 20 meq PO BID@0600,1800 RF: 0 levofloxacin 750 mg tablet 750 mg PO DAILY 3 Days Qty: 3 RF: 0 Discharge Orders: Discharge ED (Routine); Ordered 09/23/20 Ordered By: Angle Mederos Referrals: Moriah Chaparro, MANAGER LEASING [Primary Care Provider] - Discharge Diet: Usual diet Activity Restrictions/Additional Instructions: Monitor your oxygen and you may need to wear it today and use your inhaler if you are having an exasperation of your COPD return if you have shortness of breath chest pain worsening of symptoms Monitor your catheter return if you have any issues or call urology Thank you for choosing [facility] for your healthcare needs today. Please realize this is an emergency room and that we are providing you with a medical screening exam and this may not be complete and all inclusive of all the testing and or work up that you may need to determine your ailment or severity of your illness. It is very important that you follow up as instructed or that you return to the Emergency Department should you have concerns or if your condition changes or worsens in any way. Coding Level of Care Code ED End Finder Forming Department for Adelaida Hayes
--- NOTE | 2020-09-23 09:00 | PC.NURSE ---
nurse added 10ml of NS into catheter balloon. Pt catheter bag changed to a leg bag. pt reports increase in comfort
--- NOTE | 2020-09-26 10:45 | DCPLANNER ---
manager cleaning had message to schedule a follow up appointment for patient with Dr. Iglesias. manager cleaning called the office of Dr. Iglesias, spoke with Agustina. A follow up appointment is scheduled for Friday, September 29, 2020 at 12:[address] Iglesias. Clinic will call patient with appointment information. Patient has [employer] insurance, case specialist emailed patients information to September with [facility] community, so the authorization could be started for patient.
--- NOTE | 2020-10-04 12:35 | DCPLANNER ---
Patient had a follow up appointment scheduled for 09.29.[address] Iglesias - patient did attend appointment.
== END 2020-09-23 09:25 ==
LOC: ER 09:11
PROVIDERS: Emergency Provider Emergency Medicine; PCP Nurse Practitioner
DX: T83.038A Leakage of other urinary catheter, initial encounter (principal); Z79.82 Long term (current) use of aspirin; Z79.4 Long term (current) use of insulin; I11.0 Hypertensive heart disease with heart failure; I50.9 Heart failure, unspecified; J44.9 Chronic obstructive pulmonary disease, unspecified; I25.10 Atherosclerotic heart disease of native coronary artery without angina pectoris; Z95.1 Presence of aortocoronary bypass graft; E11.40 Type 2 diabetes mellitus with diabetic neuropathy, unspecified; Z87.891 Personal history of nicotine dependence
CPT/HCPCS: 99282

== ENCOUNTER 2020-09-23 15:41 | Emergency (ER) | payer OTHER, MEDICARE, SELFPAY ==
[2020-09-23 15:46] VITALS: BP 129/74; PULSE 81; RESP 20; TEMP 36.6; O2SAT 89; BMI 41.5
--- NOTE | 2020-09-23 16:04 | W.ED.GENADLT ---
HPI - General Adult General: Chief complaint: General Medical Stated complaint: Same Problem but worse Time Seen by Provider: 09/23/20 15:49 History of Present Illness: HPI narrative: Patient presents with having repeat problems with his urinary catheter. Patient had urethral stricture surgery dilation was discharged yesterday he presented earlier today because he was having leaking out around his catheter tube he did have some urine in his Flores bag but he did not mention that it was not draining at all around it therefore nursing staff adjusted his balloon put him in a leg bag since he was just dragging around his original Flores bag and put a cuff around it to hold onto his leg and he did have urine in his leg bag when he left the ER earlier today he is now stating that he has not emptied his urinary bag since he left here earlier this morning and he is urinating larger amounts around and out his penis that he is actually changed his shorts 3 times today eyes any blood he has some slight irritation around his meatus Review of Systems Narrative: Patient denies any pain denies any fevers he has slight irritation around his meatus he denies any other chest pain or shortness of breath no other complaints PFSH ED PFSH: Medical History Congestive heart failure COPD (chronic obstructive pulmonary disease) Coronary artery disease CABG x 4 in 2011, history of sternal nonunion. 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 Complicating treatment of stones Uric acid urolithiasis Surgical History History of quadruple bypass Hx of lithotripsy Status post placement of ureteral stent Family History Mother , at age 76 COPD (chronic obstructive pulmonary disease) Father , at age 68-aortic aneurysm No problems noted. Social History Smoking and tobacco status: former smoker Alcohol intake: former Marital status: Current occupational status: retired Current gender identity: Male Physical Exam Narrative: EXAM NARRATIVE: General: no distress, HEENT: normal eyes, normal mouth, normal external nose Neck: FROM Resp: normal effort, no tachypnea, no stridor Cardio: normal rate, no edema GI: soft, flat, non distended : Urinary catheter in place exam deferred until urology present Neuro: normal coordination, normal speech, no gross motor or sensory deficits Musculo: normal ROM, no gross deformities Skin: no rash Psych: normal behavior normal mood and effect Course Vital Signs: Vital signs: Vital Signs Temperature 97.8 F 09/23/20 15:46 Pulse Rate 81 09/23/20 15:46 Respiratory Rate 20 H 09/23/20 15:46 Blood Pressure 129/74 09/23/20 15:46 Pulse Oximetry 89 L 09/23/20 15:46 MDM - General Adult MDM Narrative: Medical decision making narrative: Spoke with urology Dr. Iglesias he will come in and see the patient he said patient was a difficult surgery and he will have to reevaluate and decide on a plan Discharge Plan Discharge Clinical Impression: Urethral stricture, postoperative Complication of Flores catheter Qualifiers: Encounter type: subsequent encounter Qualified Code(s): T83.9XXD - Unspecified complication of genitourinary prosthetic device, implant and graft, subsequent encounter Condition: Stable Prescriptions: No Action pravastatin [Pravachol] 40 mg Tablet 40 mg PO DAILY@0600,1800 RF: 0 gabapentin 300 mg Capsule 300 mg PO TID@06,12,18 RF: 0 albuterol sulfate 90 mcg/actuation Hfa Aerosol Inhaler 2 puff INHALATION Q6H PRN (Reason: Wheezing) RF: 0 budesonide-formoterol [Symbicort] 160-4.5 mcg/actuation Hfa Aerosol Inhaler 2 puff INHALATION BID RF: 0 glipizide 10 mg Tablet 10 mg PO BID@0600,1800 RF: 0 aspirin 81 mg Tablet,Delayed Release (Dr/Ec) 81 mg PO DAILY@0600 RF: 0 ergocalciferol (vitamin D2) [Vitamin D2] 50,000 unit Capsule 50,000 unit PO DAILY@0600 RF: 0 Lantus U-100 Insulin 100 unit/mL solution 50 unit SUBCUT DAILY@0600 RF: 0 alogliptin 25 mg tablet 25 mg PO DAILY@0600 RF: 0 Hold Instructions: Resume on 07/19/19. metoprolol tartrate 25 mg tablet 50 mg PO BID@0600,1800 RF: 0 lisinopril 5 mg tablet 10 mg PO DAILY@0600 RF: 0 furosemide 40 mg tablet 20 mg PO DAILY@0600 RF: 0 isosorbide mononitrate 20 mg tablet 10 mg PO BID@0600,1300 RF: 0 potassium chloride 20 mEq tablet extended release 20 meq PO BID@0600,1800 RF: 0 levofloxacin 750 mg tablet 750 mg PO DAILY 3 Days Qty: 3 RF: 0 Discharge Orders: Discharge ED (Routine); Ordered 09/23/20 Ordered By: Angle Mederos Referrals: Moriah Chaparro FNP [Primary Care Provider] - Discharge Diet: Usual diet Discharge Activity: Resume usual activity Patient Instructions: Flores Catheter Care Activity Restrictions/Additional Instructions: Make sure you follow-up with Dr. Iglesias as instructed return if you have further problems or concerns continue to monitor your oxygen at home and wear it during the day if you need to Rx and instructions to flush catheter as instructed per urology Thank you for choosing [facility] for your healthcare needs today. Please realize this is an emergency room and that we are providing you with a medical screening exam and this may not be complete and all inclusive of all the testing and or work up that you may need to determine your ailment or severity of your illness. It is very important that you follow up as instructed or that you return to the Emergency Department should you have concerns or if your condition changes or worsens in any way. Coding Level of Care Code ED Livestock Speculator for Adelaida Hayes
--- NOTE | 2020-09-23 17:25 | P.CONIM_ITS ---
Providers/Reason For Consult Consulting Physican/Specialty*: Urology/Iglesias Reason for Consult*: Leaking around Flores catheter Primary Care Provider: NEAL Rivera History of Present Illness History of Present Illness Ambrose Villa is a 74 year old male well-known to me for history of complex urethral stricture disease. He recently underwent a dilation of the bulbar/membranous urethral stricture and placement of a catheter over guidewire. The largest catheter I could get in was a 14 [place]. He did have some bloody urine immediately postop but that has cleared. Overall the catheter was working well at discharge but today he started having some leakage around the catheter. With each episode of leakage there was an urge associated with it and a feeling of needing to void with a fairly large amount expressed. The amount of urine draining into the bladder has significantly decreased. He was seen in the ER e jhonatan today with a manipulation of the bag and it seemed to help but the problem increased and he can return back to the emergency department for evaluation. Denies any severe pain just strong urge with urination. No fever or chills. Urine looks clear. PROCEDURE: CATHETER IRRIGATION 60 cc cath tip syringe with sterile water was utilized to irrigate the catheter. 60 cc was easily instilled into the bladder and with minimal pressure the same amount was returned. Urine was clear. No clot was returned. He was placed back to dependent drainage and the leg bag had substantial drainage that increased. My impression is that he was having urgency leakage associated with poorly draining catheter at times. No severe spasms but the mechanism is roughly the same. I expect that with irrigation the catheter will stay patent. Have instructed the nurse to provide supplies and explained again the catheter irrigation technique. I would like to have him stay on the same schedule for return to clinic and catheter change. Will prescribe OXYBUTYNIN 5 mg twice a day and keep him on antibiotics. With his catheter indwelling, poor emptying, multiple instrumentations his risk for infection is high. Expressed good understanding. Encouraged him to call if he has any further concerns or questions Review of Systems Const: Denies: fever(s), chills, fatigue or malaise Eyes: Denies: change in vision or blurry vision ENMT: Denies: throat pain or hoarseness Card: Denies: chest pain or palpitations Resp: Denies: dyspnea or productive cough GI: Denies: abdominal pain, nausea or vomiting : Reports: urinary incontinence; Denies: flank pain Skin/Breast: Denies: rash or skin tenderness Neuro: Denies: headache(s), dizziness, confusion or Slurred speech present Psych: Denies: anxiety or depression Endo: Denies: polyuria or flushing Rafa/Lymph: Denies: easy bruising or easy bleeding All/Imm: Denies: urticaria Meds/Allergies Home Medications and Allergies Home Medications Medication Instructions Recorded Confirmed Last Taken Type albuterol sulfate 2 puff INHALATION Q6H PRN 07/15/19 09/20/20 01/09/20 06:30 History aspirin 81 mg PO DAILY@0600 07/15/19 09/20/20 09/20/20 History budesonide-formoterol [Symbicort] 2 puff INHALATION BID 07/15/19 09/20/20 01/09/20 06:30 History ergocalciferol (vitamin D2) 50,000 unit PO DAILY@0600 07/15/19 09/20/20 09/20/20 History [Vitamin D2] gabapentin 300 mg PO TID@06,12,18 07/15/19 09/20/20 09/20/20 History glipizide 10 mg PO BID@0600,1800 07/15/19 09/20/20 09/20/20 History pravastatin [Pravachol] 40 mg PO DAILY@0600,1800 07/15/19 09/20/20 09/20/20 History insulin glargine 100 unit/mL 50 unit SUBCUT DAILY@0600 ml 07/19/19 09/20/20 09/20/20 History subcutaneous solution alogliptin 25 mg tablet 25 mg PO DAILY@0600 12/29/19 09/20/20 09/20/20 History lisinopril 5 mg tablet 10 mg PO DAILY@0600 tab 12/29/19 09/20/20 09/20/20 History metoprolol tartrate 25 mg tablet 50 mg PO BID@0600,1800 tab 12/29/19 09/20/20 09/20/20 History furosemide 20 mg PO DAILY@0600 09/20/20 09/20/20 09/20/20 History isosorbide mononitrate 10 mg PO BID@0600,1300 0309/20/20 09/20/20 History potassium chloride 20 meq PO BID@0600,1800 09/20/20 09/20/20 09/20/20 History levofloxacin 750 mg PO DAILY 3 Days #3 tab 09/22/20 Unknown Rx levofloxacin 500 mg PO DAILY 10 Days tab 09/23/20 Unknown Rx levofloxacin 500 mg PO DAILY 10 Days #10 tab 09/23/20 Unknown Rx oxybutynin chloride 5 mg PO BID PRN #30 tab 09/23/20 Unknown Rx oxybutynin chloride 5 mg PO BID PRN #30 tab 09/23/20 Unknown Rx Allergies Allergy/AdvReac Type Severity Reaction Status Date / Time Penicillins Allergy ALGY-Difficulty Verified 09/23/20 08:52 Breathing PFSH Acute PFSH: Medical History Congestive heart failure COPD (chronic obstructive pulmonary disease) Coronary artery disease CABG x 4 in 2011, history of sternal nonunion. 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 Complicating treatment of stones Uric acid urolithiasis Surgical History History of quadruple bypass Hx of lithotripsy Status post placement of ureteral stent Family History Mother , at age 76 COPD (chronic obstructive pulmonary disease) Father , at age 68-aortic aneurysm No problems noted. Social History Smoking and tobacco status: former smoker Alcohol intake: former Marital status: Current occupational status: retired Current gender identity: Male Vitals/I&O/Wt Last Vital Signs Temp 97.8 F 09/23/20 15:46 Pulse 81 09/23/20 15:46 Resp 20 H 09/23/20 15:46 BP 129/74 09/23/20 15:46 Pulse Ox 89 L 09/23/20 15:46 Weight last 48 hrs Weight 265 lb Physical Exam Const: COMMON NORMALS: no acute distress, alert and well nourished GENERAL APPEARANCE: well kempt and well developed ORIENTATION/CONSCIOUSNESS: not confused HENMT: COMMON NORMALS: normocephalic and atraumatic HEAD & SCALP: normocephalic and atraumatic Eye: COMMON NORMALS: conjunctivae normal and no scleral icterus CONJUNCTIVA: Yes conjunctivae normal Neck/C-Spine: COMMON NORMALS: full ROM GENERAL: Yes normal visual inspection Resp: COMMON NORMALS: normal respiratory effort EFFORT & INSPECTION: No labored and No Actively coughing GI: COMMON NORMALS: Soft to palpation PALPATION: Yes Soft to palpation and No Tenderness to palpation present (GI) : BLADDER/KIDNEY EXAM: Yes bladder normal to palpation PENIS: normal penis MEATUS: meatus normal SCROTUM: Yes testes descended bilaterally TESTES: No absent testicle, No testicular tenderness, No testicular mass, Yes epididymides normal and No epididymal tenderness Neuro: COMMON NORMALS: no focal motor deficits SENSORIUM/ORIENTATION: Yes alert Psych: COMMON NORMALS: mental status grossly normal and Normal thought process present APPEARANCE: Yes grossly normal and Yes well kempt ATTITUDE: Yes calm and Yes engaged THOUGHT PROCESS: Normal thought process present Skin: COMMON NORMALS: no rashes or lesions noted and no jaundice GENERAL SKIN EXAM: no rashes or lesions noted A&P Assessment and plan (1) Urinary incontinence: It appears that the catheter was not draining well. He had had some bloody urine before discharge which might explain the catheter not draining with some small clots plugging it. Irrigation seem to improve function. Patient will be trained in catheter irrigation. Will also be provided with some oxybutynin if it persist with catheter functioning well. Status: Acute Qualifiers: Urinary Incontinence type: urge incontinence Qualified Code(s): N39.41 - Urge incontinence (2) Malfunction of Flores catheter: Catheter occlusion likely. Very small catheter and he did have some bloody urine at time of procedure. Seems to be working better now and he will be trained in catheter management. Status: Acute Qualifiers: Encounter type: initial encounter Qualified Code(s): T83.011A - Breakdown (mechanical) of indwelling urethral catheter, initial encounter (3) Uric acid urolithiasis: Status: Chronic (4) Urethral stricture, postoperative: Recently dilated in the operating room. Has Flores catheter in for passive dilation. Status: Chronic (5) False passage of urethra: Not an issue currently. May ultimately require TUR posteriorly to clear a path for easier catheterization. Status: Acute Consult Attestations Medical Necessity Statement: Able to be discharged Time Spent in Patient Care: Greater than 35 minutes (>than 50% of time spent in counselling and/or direct pt care on unit) . 55 minutes Coding Level of Care Code Acute Fishing Boat Mate for g Fwd Exam Comprehensive Diagnoses Urinary incontinence N39.41 Urinary Incontinence type: urge incontinence Malfunction of Flores catheter T83.011A Encounter type: initial encounter Uric acid urolithiasis N20.9 Urethral stricture, postoperative False passage of urethra N36.5
== END 2020-09-23 18:00 | disposition home or self-care (01) ==
PROVIDERS: Emergency Provider Emergency Medicine; PCP Nurse Practitioner
DX: T83.9XXA Unspecified complication of genitourinary prosthetic device, implant and graft, initial encounter (principal); N99.114 Postprocedural urethral stricture, male, unspecified; Z79.82 Long term (current) use of aspirin; Z79.4 Long term (current) use of insulin; J44.9 Chronic obstructive pulmonary disease, unspecified; I11.0 Hypertensive heart disease with heart failure; I50.9 Heart failure, unspecified; I25.10 Atherosclerotic heart disease of native coronary artery without angina pectoris; E11.40 Type 2 diabetes mellitus with diabetic neuropathy, unspecified; Z87.891 Personal history of nicotine dependence
CPT/HCPCS: 99282

== ENCOUNTER → 2020-10-27 08:47 | Outpatient (BNVA) | payer OTHER, SELFPAY | PROVIDERS: PCP Nurse Practitioner; Visit Provider Urology | DX: N36.5 Urethral false passage (principal) | CPT/HCPCS: 81003 ==

== ENCOUNTER 2021-01-05 04:00 | Emergency (ER) | payer OTHER, MEDICARE, SELFPAY ==
[2021-01-05 04:04] VITALS: BP 155/76; PULSE 67; RESP 16; TEMP 36.9; O2SAT 86; BMI 42.3
--- NOTE | 2021-01-05 04:04 | CTR_ITS ---
PROCEDURE INFORMATION: Exam: CT Abdomen And Pelvis Without Contrast Exam date and time: 01/05/2021 4:04 AM Age: 75 years old Clinical indication: Abdominal pain; Prior surgery; Surgery type: Open heart. Costal fixation. ; Patient HX: Bilateral flank pain. History of nephrolithiasis. TECHNIQUE: Imaging protocol: Computed tomography of the abdomen and pelvis without contrast. Radiation optimization: All CT scans at this facility use at least one of these dose optimization techniques: automated exposure control; mA and/or kV adjustment per patient size (includes targeted exams where dose is matched to clinical indication); or iterative reconstruction. COMPARISON: CT kidney stone [id number] 09/20/2020 7:58 PM RADIATION DOSE METRICS: Total DLP (mGy-cm): 1916.19 FINDINGS: Lungs: There is bilateral subpleural reticular opacities, consistent with mild pulmonary fibrosis. Centrilobular and paraseptal emphysema is present. Liver: Normal. No mass. Gallbladder and bile ducts: Normal. No calcified stones. No ductal dilation. Pancreas: Normal. No ductal dilation. Spleen: Normal. No splenomegaly. Adrenal glands: Normal. No mass. Kidneys and ureters: There is a 2 mm obstructing stone in the right UVJ, resulting in mild hydronephrosis. There is a 3.6 cm cyst in the right mid kidney. Stomach and bowel: There is diverticulosis without evidence of diverticulitis. Appendix: No evidence of appendicitis. Intraperitoneal space: Unremarkable. No free air. No significant fluid collection. Vasculature: Unremarkable. No abdominal aortic aneurysm. Lymph nodes: Unremarkable. No enlarged lymph nodes. Urinary bladder: Unremarkable as visualized. Reproductive: Unremarkable as visualized. Bones/joints: Median sternotomy changes seen. Degenerative changes of the spine seen. Internal fixation plates noted in multiple ribs on the left. Old fracture deformity of the right posterior 8th rib noted. Soft tissues: Unremarkable. CT/CT kidney stone [id number] IMPRESSION: Right UVJ obstructing stone, resulting in mild hydronephrosis. COMMENTS: Consistent with the [employer]'s Incidental Findings Committee white paper (J Am Trent Radiol 2018): Any incidental renal lesion less than 1 cm or classified as too small to characterize, or any incidental cystic renal lesion characterized as simple-appearing, is likely benign. No follow-up imaging is recommended for these lesions per consensus recommendations based on imaging criteria. Radiation Dose CTDIVOL = (mGy): DLP = 1916.19 (mGy-cm)
[2021-01-05 04:09] VITALS: PULSE 63; RESP 15; O2SAT 97
--- NOTE | 2021-01-05 04:12 | ED_ITS ---
HPI - Abdominal Pain General: Chief Complaint: Abdominal Pain Stated Complaint: KIDNEY STONES Time Seen by Provider: 01/05/21 04:00 Source: patient Mode of arrival: ambulatory Limitations: no limitations History of Present Illness: HPI narrative: 75-year-old male states that he started having a sudden onset of right-sided flank pain at 130. He states the pain is very sharp in nature and was originally an 9 out of 10. He has received 1 Dilaudid states it is much improved currently is a 3 out of 10. States he had a kidney stone 2 years ago with very similar pain. Denies any worsening proving factors. He has had nausea and vomiting from the pain as well. Denies any fevers. Associated Symptoms: Reports nausea; Denies chills, diarrhea, dysuria, fever(s) and vomiting Review of Systems Const: Denies: fever(s), chills, body aches or change in appetite Eyes: Denies: blurry vision or eye discomfort ENMT: Denies: throat pain or dental pain Card: Denies: chest pain Resp: Denies: dyspnea GI: Reports: abdominal pain and nausea; Denies: vomiting or diarrhea : Reports: flank pain; Denies: dysuria Musc: Denies: neck pain or back pain Skin/Breast: Denies: rash Neuro: Denies: headache(s) Psych: Denies: depression Rafa/Lymph: Denies: easy bruising All/Imm: Denies: urticaria PFSH ED PFSH: Medical History Congestive heart failure COPD (chronic obstructive pulmonary disease) Coronary artery disease CABG x 4 in 2011, history of sternal nonunion. 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 Complicating treatment of stones Uric acid urolithiasis Surgical History History of quadruple bypass Hx of lithotripsy Status post placement of ureteral stent Family History Mother , at age 76 COPD (chronic obstructive pulmonary disease) Father , at age 68-aortic aneurysm No problems noted. Social History Smoking and tobacco status: former smoker Alcohol intake: former Marital status: Current occupational status: retired Current gender identity: Male Physical Exam Const: COMMON NORMALS: no acute distress, patient oriented x3 and healthy appearing HENMT: COMMON NORMALS: normocephalic and atraumatic HEAD & SCALP: normocephalic and atraumatic Eye: COMMON NORMALS: Equal, round and reactive pupils present and EOMs intact bilaterally PUPIL: Yes Equal, round and reactive pupils present Neck/C-Spine: COMMON NORMALS: full ROM and supple Chest: COMMONS NORMALS: normal inspection of the chest and normal palpation of entire chest wall Resp: COMMON NORMALS: normal respiratory effort, No retractions, No use of accessory muscles and clear to auscultation bilaterally AUSCULTATION: clear to auscultation bilaterally Cardio: COMMON NORMALS: regular rate, regular rhythm and No murmurs present (Cardio) RATE: regular rate RHYTHM: regular rhythm GI: COMMON NORMALS: Normal to inspection, nondistended, normoactive bowel sounds present, Soft to palpation, non-tender and no masses PALPATION: Yes Soft to palpation Extremity: COMMON NORMALS: normal to inspection and full ROM Neuro: COMMON NORMALS: patient oriented x3, moves all extremities and no focal motor deficits Psych: COMMON NORMALS: mental status grossly normal, Normal thought process present and cooperative THOUGHT PROCESS: Normal thought process present Skin: COMMON NORMALS: no rashes or lesions noted and no wounds GENERAL SKIN EXAM: no rashes or lesions noted Course Vital Signs: Vital signs: Vital Signs Temperature 98.5 F 01/05/21 04:04 Pulse Rate 63 01/05/21 04:09 Respiratory Rate 18 01/05/21 04:14 Blood Pressure 155/76 01/05/21 04:04 Pulse Oximetry 94 01/05/21 04:14 MDM - Abdominal Pain MDM Narrative: Medical decision making narrative: Patient presents here with with a kidney stone causing his pain. Patient's urinalysis blood work are all normal. Stone is small and should likely pass. Will prescribe him pain meds for home and have him follow-up with Dr. Igleisas. Lab Data: Labs: Lab Results 01/05/21 01/05/21 01/05/21 Range/Units 04:10 04:10 04:50 WBC 9.1 (4.0-10.0) 10^3/ uL RBC 4.54 (4.1-5.3) 10^6/u L Hgb 14.7 (11.7-16.6) g/dL Hct 45.4 (42.0-52.0) % MCV 100.0 H (80-94) fL MCH 32.4 (28.0-34.0) pg MCHC 32.4 (30.0-36.0) g/dL RDW 13.6 (12.1-15.1) % Plt Count 146 (130-400) 10^3/c mm MPV 10.8 H (7.4-10.4) fL Neut % (Auto) 56.5 % Lymph % (Auto) 30.4 % [place] % (Auto) 6.6 % Eos % (Auto) 4.9 % Baso % (Auto) 0.9 % Neut # (Auto) 5.16 (1.8-7.7) 10^3/u L Lymph # (Auto) 2.8 (0.8-4.8) 10^3/u L [place] # (Auto) 0.6 (0.2-0.9) 10^3/u L Eos # (Auto) 0.5 (0.0-0.8) 10^3/u L Baso # (Auto) 0.1 (0.0-0.1) 10^3/u L Nucleated RBC % (a uto) 0 % Nucleated RBCs # 0.0 /100WBC Sodium 140 (136-145) mmol/L Potassium 4.6 (3.5-5.1) mmol/L Chloride 107 (98-107) mmol/L Carbon Dioxide 23 (22-29) mmol/L Anion Gap 14.6 (5-19) BUN 18 (8-23) mg/dL Creatinine 1.5 H (0.7-1.2) mg/dL GFR Calculation Not Reportable Glucose 199 H (65-115) mg/dL Calculated Osmolal ity 297 H (285-295) mOsm/k g Calcium 8.6 (8.5-10.5) mg/dL Total Bilirubin 0.4 (0.15-1.2) mg/dL AST 17 (0-40) U/L ALT 12 (0-41) U/L Alkaline Phosphata se 59 (40-130) IU/L Total Protein 6.2 L (6.6-8.7) g/dL Albumin 3.7 (3.5-5.2) g/dL Globulin 2.5 (1.3-4.6) g/dL Urine Color Yellow (Yellow) Urine Appearance Turbid (CLEAR) Urine pH 5 (5-7) Ur Specific Gravit y 1.025 (1.005-1.030) Urine Protein 1+ H (Negative) Urine Glucose (UA) Norm (Normal) Urine Ketones Negative (Negative) Urine Blood 3+ H (Negative) Urine Nitrate Negative (Negative) Urine Bilirubin Neg (Negative) Urine Urobilinogen Norm (Negative) mg/dL Ur Leukocyte Neida ase 2+ H (Negative) Urine RBC 40-50 H (0-2) /hpf Urine WBC >100 H (0-5) /hpf Ur Squamous Epith Cells 5-10 H (0-5) /hpf Amorphous Sediment Not Reportable Urine Bacteria Trace (NONE) /hpf Urine Yeast 2+ H /hpf Imaging Data ^: CT Abd/Pel: Attestation: I personally reviewed and interpreted this imaging study as follows: Radiologist's impression: [address] [address] [address] Scan Report Signed Patient: Ambrose Villa Unit #: [id number] : 1945 Age/Sex: 75 / M ADM Date: 01/05/21 Loc: ER Room/Bed: Attending Dr: Ordering Provider/Ordering MD: Jordy Persaud MD Date of Service: 01/05/21 Procedure(s): CT kidney stone [id number] Accession Number(s): [id number] Report Number: [id number] PROCEDURE INFORMATION: Exam: CT Abdomen And Pelvis Without Contrast Exam date and time: 01/05/2021 4:04 AM Age: 75 years old Clinical indication: Abdominal pain; Prior surgery; Surgery type: Open heart. Costal fixation. ; Patient HX: Bilateral flank pain. History of nephrolithiasis. TECHNIQUE: Imaging protocol: Computed tomography of the abdomen and pelvis without contrast. Radiation optimization: All CT scans at this facility use at least one of these dose optimization techniques: automated exposure control; mA and/or kV adjustment per patient size (includes targeted exams where dose is matched to clinical indication); or iterative reconstruction. COMPARISON: CT kidney stone [id number] 09/20/2020 7:58 PM RADIATION DOSE METRICS: Total DLP (mGy-cm): 1916.19 FINDINGS: Lungs: There is bilateral subpleural reticular opacities, consistent with mild pulmonary fibrosis. Centrilobular and paraseptal emphysema is present. Liver: Normal. No mass. Gallbladder and bile ducts: Normal. No calcified stones. No ductal dilation. Pancreas: Normal. No ductal dilation. Spleen: Normal. No splenomegaly. Adrenal glands: Normal. No mass. Kidneys and ureters: There is a 2 mm obstructing stone in the right UVJ, resulting in mild hydronephrosis. There is a 3.6 cm cyst in the right mid kidney. Stomach and bowel: There is diverticulosis without evidence of diverticulitis. Appendix: No evidence of appendicitis. Intraperitoneal space: Unremarkable. No free air. No significant fluid collection. Vasculature: Unremarkable. No abdominal aortic aneurysm. Lymph nodes: Unremarkable. No enlarged lymph nodes. Urinary bladder: Unremarkable as visualized. Reproductive: Unremarkable as visualized. Bones/joints: Median sternotomy changes seen. Degenerative changes of the spine seen. Internal fixation plates noted in multiple ribs on the left. Old fracture deformity of the right posterior 8th rib noted. Soft tissues: Unremarkable. CT/CT kidney stone [id number] IMPRESSION: Right UVJ obstructing stone, resulting in mild hydronephrosis. COMMENTS: Consistent with the [employer]'s Incidental Findings Committee white paper (J Am Trent Radiol 2018): Any incidental renal lesion less than 1 cm or classified as too small to characterize, or any incidental cystic renal lesion characterized as simple-appearing, is likely benign. No follow-up imaging is recommended for these lesions per consensus recommendations based on imaging criteria. Radiation Dose CTDIVOL = (mGy): DLP = 1916.19 (mGy-cm) Dictated By: Phil Gilliam Signed By: Phil Gilliam Signed Date/Time: 01/05/21527 DD/ 6 EKG Data ^: EKG 1: Attestation: I personally reviewed and interpreted this EKG as follows: EKG interpretation date: 01/05/21 EKG interpretation time: 04:57 Interpretation: sinus maida hr [address] or t wave abnormalities qrs 113 qtc 426 Discharge Plan Discharge Patient Disposition: Home Clinical Impression: Kidney stone Condition: Stable Prescriptions: New hydrocodone-acetaminophen 5-325 mg tablet 1 tab PO Q6H PRN (Reason: pain) Qty: 14 RF: 0 ondansetron 4 mg tablet,disintegrating 4 mg PO Q6H PRN (Reason: nausea and vomiting) Qty: 14 RF: 0 No Action metformin 500 mg tablet 500 mg PO DAILY RF: 0 ciprofloxacin HCl 500 mg tablet 500 mg PO BID Qty: 14 RF: 2 pravastatin [Pravachol] 40 mg Tablet 40 mg PO DAILY@0600,1800 RF: 0 gabapentin 300 mg Capsule 300 mg PO TID@06,12,18 RF: 0 albuterol sulfate 90 mcg/actuation Hfa Aerosol Inhaler 2 puff INHALATION Q6H PRN (Reason: Wheezing) RF: 0 budesonide-formoterol [Symbicort] 160-4.5 mcg/actuation Hfa Aerosol Inhaler 2 puff INHALATION BID RF: 0 glipizide 10 mg Tablet 10 mg PO BID@0600,1800 RF: 0 aspirin 81 mg Tablet,Delayed Release (Dr/Ec) 81 mg PO DAILY@0600 RF: 0 ergocalciferol (vitamin D2) [Vitamin D2] 50,000 unit Capsule 50,000 unit PO DAILY@0600 RF: 0 Lantus U-100 Insulin 100 unit/mL solution 50 unit SUBCUT DAILY@0600 RF: 0 alogliptin 25 mg tablet 25 mg PO DAILY@0600 RF: 0 Hold Instructions: Resume on 07/19/19. metoprolol tartrate 25 mg tablet 50 mg PO BID@0600,1800 RF: 0 lisinopril 5 mg tablet 10 mg PO DAILY@0600 RF: 0 furosemide 40 mg tablet 20 mg PO DAILY@0600 RF: 0 isosorbide mononitrate 20 mg tablet 10 mg PO BID@0600,1300 RF: 0 potassium chloride 20 mEq tablet extended release 20 meq PO BID@0600,1800 RF: 0 Discharge Orders: Discharge ED (Routine); Ordered 01/05/21 Ordered By: Jordy Persaud Referrals: Jorge Iglesias MD [Physician] - 1-3 days Moriah Chaparro FNP [Primary Care Provider] - Discharge Diet: Advance as tolerated Discharge Activity: Resume usual activity Patient Instructions: Kidney Stones (ED), Opioid Safety Coding Level of Care Code ED Inspector Subassembly for Chg Fwd Exam Comprehensive
--- NOTE | 2021-01-05 04:12 | ECG_ITS ---
[facility] Test Date: 2021-01-05 Pat Name: Ambrose Villa Department: Room: Gender: Male Completions Engineer: : 1945 Requested By: Jordy Persaud Order Number: [id number] Reading MD: CIRO JUÁREZ Measurements Intervals [place] Rate: 59 P: 38 WA: 182 QRS: -43 QRSD: 113 T: 2 QT: 426 QTc: 425 Interpretive Statements SINUS BRADYCARDIA MARKED LEFT AXIS DEVIATION [QRS AXIS < -30] PATTERN CONSISTENT WITH PULMONARY DISEASE MODERATE INTRAVENTRICULAR CONDUCTION DELAY [105+ ms QRS DURATION, 80+ ms Q/S IN V1/V2, NO Q AND 60+ ms R IN I/aVL/V5/V6] MODERATE T-WAVE ABNORMALITY, CONSIDER ANTERIOR ISCHEMIA [-0.1+ mV T WAVE IN V3/V4] Compared to ECG 09/20/2020 19:36:10 no sig change Electronically Signed On 01-05-2021 19:24:52 CDT by CIRO JUÁREZ [id number] f
[2021-01-05 04:14] VITALS: RESP 18; O2SAT 94
[2021-01-05] MEDS: HYDROmorphone 1 mg/mL INJ 1 mL 0.5 MG IVP (04:14)
[2021-01-05 04:15] LABS: Basophils # 0.1 10^3/uL (0.0-0.1); Basophils % 0.9 %; Eosinophils # 0.5 10^3/uL (0.0-0.8); Eosinophils % 4.9 %; Hematocrit 45.4 % (42.0-52.0); Hemoglobin 14.7 g/dL (11.7-16.6); Lymphocytes # 2.8 10^3/uL (0.8-4.8); Lymphocytes % 30.4 %; Mean Corpuscular HGB Conc 32.4 g/dL (30.0-36.0); Mean Corpuscular Hemoglobin 32.4 pg (28.0-34.0); Mean Platelet Volume 10.8 fL (7.4-10.4); Monocytes # 0.6 10^3/uL (0.2-0.9); Monocytes % 6.6 %; Neutrophils # 5.16 10^3/uL (1.8-7.7); Neutrophils % 56.5 %; Nucleated Red Blood Cells % 0 %; Platelet Count 146 10^3/cmm (130-400); Red Blood Count 4.54 10^6/uL (4.1-5.3); Red Cell Distribution Width 13.6 % (12.1-15.1); White Blood Count 9.1 10^3/uL (4.0-10.0)
[2021-01-05] MEDS: ondansetron 2 mg/ML SDV 2 mL 4 MG IVP (04:17)
[2021-01-05 04:34] LABS: Alanine Aminotransferase 12 U/L (0-41); Albumin Level 3.7 g/dL (3.5-5.2); Alkaline Phosphatase 59 IU/L (40-130); Anion Gap 14.6 (5-19); Aspartate Amino Transferase 17 U/L (0-40); Blood Urea Nitrogen 18 mg/dL (8-23); Calcium 8.6 mg/dL (8.5-10.5); Carbon Dioxide 23 mmol/L (22-29); Chloride 107 mmol/L (98-107); Globulin 2.5 g/dL (1.3-4.6); Glucose 199 mg/dL (65-115); Osmolality Calculated 297 mOsm/kg (285-295); Potassium 4.6 mmol/L (3.5-5.1); Sodium 140 mmol/L (136-145); Total Bilirubin 0.4 mg/dL (0.15-1.2); Total Protein 6.2 g/dL (6.6-8.7)
[2021-01-05 05:13] LABS: Add Urine Microscopic? YES; Bacteria Urine TRACE /hpf; Bilirubin Urine Neg (Negative); Blood Urine 3+ (Negative); Glucose Urine UA Norm (Normal); Ketones Urine Negative (Negative); Leukocyte Esterase Urine 2+ (Negative); Nitrate Urine Negative (Negative); Protein Urine 1+ (Negative); RBC Urine 40-50 /hpf (0-2); Specific Gravity, Urine 1.025 (1.005-1.030); Urine Appearance Turbid (CLEAR); Urine Color Yellow (Yellow); Urobilinogen Urine Norm (Negative); WBC Urine >100 /hpf (0-5); pH Urine 5 (5-7)
[2021-01-05 05:14] LABS: Add Urine Culture? Yes
[2021-01-05 05:41] VITALS: BP 135/75; PULSE 60; RESP 18; O2SAT 100
[2021-01-05 05:42] VITALS: BP 135/75; PULSE 60; RESP 18; O2SAT 98
--- NOTE | 2021-01-05 09:19 | DCPLANNER ---
manager line had message to schedule a follow up appointment for patient with Dr. Iglesias for kidney stone. manager line called the office of Dr. Iglesias, spoke with Agustina, gave clinic patients information. manager line was told that patients information would be printed and reviewed. Clinic will call patient with appointment information.
--- NOTE | 2021-01-10 11:43 | DCPLANNER ---
Patient had a follow up appointment schedule for 01.08.[address] Iglesias - patient did attend appointment.
== END 2021-01-05 06:07 | disposition home or self-care (01) ==
PROVIDERS: Emergency Provider Emergency Medicine; PCP Nurse Practitioner
DX: N20.0 Calculus of kidney (principal); Z79.82 Long term (current) use of aspirin; Z79.4 Long term (current) use of insulin; J44.9 Chronic obstructive pulmonary disease, unspecified; I25.10 Atherosclerotic heart disease of native coronary artery without angina pectoris; Z95.1 Presence of aortocoronary bypass graft; Z87.442 Personal history of urinary calculi; E11.40 Type 2 diabetes mellitus with diabetic neuropathy, unspecified; Z87.891 Personal history of nicotine dependence
CPT/HCPCS: 74176; 80053; 81001; 85025; 87086; 87106; 93005; 96374; 96375; 99283; J1170; J2405; J7030

== ENCOUNTER 2021-01-08 08:01 | Outpatient (CLI) | payer OTHER, MEDICARE, SELFPAY ==
--- NOTE | 2021-01-08 08:00 | XRR_ITS ---
PROCEDURE INFORMATION: Exam: XR Abdomen Exam date and time: 01/08/2021 8:00 AM Age: 75 years old Clinical indication: Condition or disease; Kidney or ureter condition; Calculus (stone) in kidney; Prior surgery; Surgery type: Lithotripsy; Additional info: Kidney stone TECHNIQUE: Imaging protocol: XR of the abdomen. Views: Frontal supine view of the abdomen. 1 View. COMPARISON: CT kidney stone [id number] 01/05/2021 4:23 AM FINDINGS: Gastrointestinal tract: Prominent stool, without bowel dilatation. Intraperitoneal space: 1 mm right pelvic calcification, which was identified as an obstructing UVJ calculus on earlier CT. Bones/joints: Degenerative change. XR/XR KUB [id number] IMPRESSION: 1 mm right pelvic calcification, which was identified as an obstructing UVJ calculus on earlier CT.
== END 2021-01-08 08:02 | disposition home or self-care (01) ==
LOC: RAD 08:02
PROVIDERS: PCP Nurse Practitioner; Visit Provider Urology
DX: N20.0 Calculus of kidney (principal)
CPT/HCPCS: 74018; 81003

== ENCOUNTER → 2021-01-30 10:00 | Outpatient (BNVA) | payer OTHER, MEDICARE, SELFPAY | PROVIDERS: PCP Nurse Practitioner; Visit Provider Urology | DX: N36.5 Urethral false passage (principal); N20.9 Urinary calculus, unspecified | CPT/HCPCS: 81003 ==

== ENCOUNTER 2021-02-03 05:28 | Emergency (ER) | payer OTHER, MEDICARE, SELFPAY ==
[2021-02-03 05:38] VITALS: BP 132/79; PULSE 69; RESP 18; TEMP 36.4; O2SAT 91; BMI 42.3
--- NOTE | 2021-02-03 05:43 | CTR_ITS ---
PROCEDURE INFORMATION: Exam: CT Abdomen And Pelvis Without Contrast Exam date and time: 02/03/2021 5:43 AM Age: 75 years old Clinical indication: Abdominal pain; Patient HX: Left flank pain and nausea. States passed a stone at approx. 0400. History of nephrolithiasis. ; Additional info: Flank pain vomiting TECHNIQUE: Imaging protocol: Computed tomography of the abdomen and pelvis without contrast. Radiation optimization: All CT scans at this facility use at least one of these dose optimization techniques: automated exposure control; mA and/or kV adjustment per patient size (includes targeted exams where dose is matched to clinical indication); or iterative reconstruction. COMPARISON: CT kidney stone [id number] 01/05/2021 4:23 AM RADIATION DOSE METRICS: Total DLP (mGy-cm): 1959.37 FINDINGS: Lungs: The lung bases are clear. No effusion Liver: Normal. No mass. Gallbladder and bile ducts: No wall thickening, pericholecystic fluid or stones. Pancreas: Normal. No ductal dilation. Spleen: Normal. No splenomegaly. Adrenal glands: Normal. No mass. Kidneys and ureters: 3.4 cm right renal cyst. Stomach and bowel: Diverticulosis without diverticulitis. Appendix: No evidence of appendicitis. Intraperitoneal space: Unremarkable. No free air. No significant fluid collection. Vasculature: Mild atherosclerotic disease of the aorta without aneurysm. Lymph nodes: Unremarkable. No enlarged lymph nodes. Urinary bladder: 1 mm stone at the base of the urinary bladder. Reproductive: Unremarkable as visualized. Bones/joints: There has been a median sternotomy. Soft tissues: Unremarkable. CT/CT kidney stone [id number] IMPRESSION: 1. Mild atherosclerotic disease of the aorta without aneurysm. 2. Stable 1 mm urinary bladder stone. 3. Diverticulosis without diverticulitis. COMMENTS: Consistent with the [employer]'s Incidental Findings Committee white paper (J Am Trent Radiol 2018): Any incidental renal lesion less than 1 cm or classified as too small to characterize, or any incidental cystic renal lesion characterized as simple-appearing, is likely benign. No follow-up imaging is recommended for these lesions per consensus recommendations based on imaging criteria. Radiation Dose CTDIVOL = (mGy): DLP = 1959.37 (mGy-cm)
--- NOTE | 2021-02-03 05:57 | W.ED.ABDPA2 ---
HPI - Abdominal Pain General: Chief Complaint: Abdominal Pain Stated Complaint: PASSED KIDNEY STONE/N/V Time Seen by Provider: 02/03/21 05:57 History of Present Illness: HPI narrative: Mr. Villa is a 75-year-old gentleman with significant past medical history of COPD on home O2, CHF, CAD, history of nephrolithiasis and false urethral passage and stricture who presents emergency department due to left flank pain. Symptom onset was approximately midnight. He describes severe left sharp flank pain with radiation towards the pelvis. This was unrelenting and the patient could not get comfortable. This is similar to prior kidney stones. He endorses continued symptoms that were near constant until approximately 4 AM when he passed a kidney stone and had some relief. He endorses continued nausea and vomiting and pain approximately 5 out of 10. He has otherwise previously been at his baseline health and denies changes. No infectious symptoms. No specific exacerbating relieving factors. Review of Systems General: Reports: 10 or more systems reviewed and unremarkable except in HPI and below Narrative: CONSTITUTIONAL: denies fever, fatigue, weakness EYES - denies pain, denies loss of vision EARS - denies ear issues. NOSE - denies congestion or rhinorrhea. THROAT - denies sore throat or difficulty swallowing. CARDIOVASCULAR - denies chest pain and palpitations RESPIRATORY - denies shortness of breath and cough GASTROINTESTINAL - left flank pain and nausea/vomiting, no changes in bowel habits GENITOURINARY - see HPI. No testicular pain. MUSCULOSKELETAL- denies deformity or pain SKIN - denies rashes or new changed skin lesions NEUROLOGIC - denies focal weakness or sensory changes HEMATOLOGIC/LYMPHATIC - denies easy bruising or lymphadenopathy. [facility] ED PFSH: Medical History Congestive heart failure COPD (chronic obstructive pulmonary disease) Coronary artery disease CABG x 4 in 2012, history of sternal nonunion. 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 Complicating treatment of stones Uric acid urolithiasis Surgical History History of quadruple bypass Hx of lithotripsy Status post placement of ureteral stent Family History Mother , at age 76 COPD (chronic obstructive pulmonary disease) Father , at age 68-aortic aneurysm No problems noted. Social History Alcohol intake: former Marital status: Current occupational status: retired Current gender identity: Male Physical Exam Narrative: EXAM NARRATIVE: GENERAL/CONSTITUTIONAL - well-appearing. No acute distress. Eyes - PERRL, no conjunctival injection ENMT - Atraumatic external nose and ears. Moist mucous membranes NECK - supple. trachea midline CARDIOVASCULAR - regular rate and rhythm. Peripheral pulses 2+ and equal RESPIRATORY -clear to auscultation bilaterally. No retractions or accessory muscle use. ABDOMEN/GI -tenderness palpation of the left abdomen and flank. No tenderness to percussion or evidence of peritonitis MSK - Extremities without obvious deformity or tenderness to palpation SKIN - Warm, Dry NEURO - alert and appropriately oriented. strength and sensation intact. Moves all extremities equally. PSYCH - Appropriate mood and affect Course ED course: - Patient was seen and evaluated by me at bedside - Patient placed on cardiac monitors, IV access obtained - Initial evaluation notable for no acute distress, nontoxic appearance. Patient does have left flank and abdominal tenderness to palpation without evidence of peritonitis. - Labs and imaging obtained and reviewed - Fluids, analgesia ordered - Labs notable for minimal leukocytosis, no significant metabolic abnormalities. Urinalysis most consistent with recent stone passage - Imaging notable for no evidence of nephrolithiasis or obstructing stone - Upon serial reexamination after treatment the patient was improved - Based on patient history, evaluation, labs, and imaging as interpreted the most likely cause of the patient's condition is recently passed nephrolithiasis - The results of ED evaluation were discussed with the patient including prescriptions and/or symptomatic cares including appropriate and responsible use, followup plan, and return precautions. The patient verbalized understanding and felt safe for discharge. - Patient discharged in satisfactory condition. Vital Signs: Vital signs: Vital Signs Temperature 97.6 F 02/03/21 05:38 Pulse Rate 62 02/03/21 09:00 Respiratory Rate 16 02/03/21 09:00 Blood Pressure 117/69 02/03/21 09:00 Pulse Oximetry 92 02/03/21 09:00 MDM - Abdominal Pain Medical Records: Attestation: I reviewed the patient's medical records. Lab Data: Attestation: I reviewed the patient's lab results. Labs: Lab Results 02/03/21 02/03/21 02/03/21 Range/Units 06:00 06:00 07:25 WBC 10.1 H (4.0-10.0) 10^3/ uL RBC 4.95 (4.1-5.3) 10^6/u L Hgb 16.1 (11.7-16.6) g/dL Hct 48.3 (42.0-52.0) % MCV 97.6 H (80-94) fl MCH 32.5 (28.0-34.0) pg MCHC 33.3 (30.0-36.0) g/dL RDW 15.0 (12.1-15.1) % Plt Count 156 (130-400) 10^3/c mm MPV 11.2 H (7.4-10.4) fL Neut % (Auto) 61.3 % Lymph % (Auto) 25.3 % [place] % (Auto) 6.1 % Eos % (Auto) 5.7 % Baso % (Auto) 1.0 % Neut # (Auto) 6.18 (1.8-7.7) 10^3/u L Lymph # (Auto) 2.6 (0.8-4.8) 10^3/u L [place] # (Auto) 0.6 (0.2-0.9) 10^3/u L Eos # (Auto) 0.6 (0.0-0.8) 10^3/u L Baso # (Auto) 0.1 (0.0-0.1) 10^3/u L Nucleated RBC % (a uto) 0 % Nucleated RBCs # 0.0 /100WBC Sodium 138 (136-145) mmol/L Potassium 4.4 (3.5-5.1) mmol/L Chloride 103 (98-107) mmol/L Carbon Dioxide 24 (22-29) mmol/L Anion Gap 15.4 (5-19) BUN 16 (8-23) mg/dL Creatinine 1.1 (0.7-1.2) mg/dL GFR Calculation Not Reportable Glucose 225 H (65-115) mg/dL Calculated Osmolal ity 294 (285-295) mOsm/k g Calcium 8.9 (8.5-10.5) mg/dL Total Bilirubin 0.5 (0.15-1.2) mg/dL AST 23 (0-40) U/L ALT 15 (0-41) U/L Alkaline Phosphata se 71 (40-130) IU/L C-Reactive Protein 7.7 H (0.0-4.9) mg/L Total Protein 6.8 (6.6-8.7) g/dL Albumin 4.0 (3.5-5.2) g/dL Globulin 2.8 (1.3-4.6) g/dL Lipase 21 (13-60) U/L Urine Color Dark yellow (Yellow) Urine Appearance Sl hazy (CLEAR) Urine pH 5 (5-7) Ur Specific Gravit y 1.020 (1.005-1.030) Urine Protein Trace (Negative) Urine Glucose (UA) 2+ (Normal) Urine Ketones Negative (Negative) Urine Blood 3+ H (Negative) Urine Nitrate Negative (Negative) Urine Bilirubin Neg (Negative) Urine Urobilinogen Norm (Negative) mg/dL Ur Leukocyte Neida ase Trace H (Negative) Urine RBC >100 H (0-2) /hpf Urine WBC 5-10 H (0-5) /hpf Ur Squamous Epith Cells 0-4 H (0-5) /hpf Uric Acid Crystals 5-10 H /hpf Amorphous Sediment Not Reportable Urine Bacteria 1+ H (NONE) /hpf Discharge Plan Discharge Patient Disposition: Home Clinical Impression: Acute left flank pain, Hematuria Condition: Stable Prescriptions: New Flomax 0.4 mg capsule 0.4 mg PO DAILY Qty: 14 RF: 0 No Action metformin 500 mg tablet 500 mg PO DAILY RF: 0 ciprofloxacin HCl 500 mg tablet 500 mg PO BID Qty: 14 RF: 2 ondansetron 4 mg tablet,disintegrating 4 mg PO Q6H PRN (Reason: nausea and vomiting) Qty: 14 RF: 0 pravastatin [Pravachol] 40 mg Tablet 40 mg PO DAILY@0600,1800 RF: 0 gabapentin 300 mg Capsule 300 mg PO TID@06,12,18 RF: 0 albuterol sulfate 90 mcg/actuation Hfa Aerosol Inhaler 2 puff INHALATION Q6H PRN (Reason: Wheezing) RF: 0 budesonide-formoterol [Symbicort] 160-4.5 mcg/actuation Hfa Aerosol Inhaler 2 puff INHALATION BID RF: 0 glipizide 10 mg Tablet 10 mg PO BID@0600,1800 RF: 0 aspirin 81 mg Tablet,Delayed Release (Dr/Ec) 81 mg PO DAILY@0600 RF: 0 ergocalciferol (vitamin D2) [Vitamin D2] 50,000 unit Capsule 50,000 unit PO DAILY@0600 RF: 0 Lantus U-100 Insulin 100 unit/mL solution 50 unit SUBCUT DAILY@0600 RF: 0 alogliptin 25 mg tablet 25 mg PO DAILY@0600 RF: 0 Hold Instructions: Resume on 07/19/19. metoprolol tartrate 25 mg tablet 50 mg PO BID@0600,1800 RF: 0 lisinopril 5 mg tablet 10 mg PO DAILY@0600 RF: 0 furosemide 40 mg tablet 20 mg PO DAILY@0600 RF: 0 isosorbide mononitrate 20 mg tablet 10 mg PO BID@0600,1300 RF: 0 potassium chloride 20 mEq tablet extended release 20 meq PO BID@0600,1800 RF: 0 Discharge Orders: Discharge ED (Routine); Ordered 02/03/21 Ordered By: Ezekiel Scott Referrals: Moriah Chaparro FNP [Primary Care Provider] - Discharge Diet: Usual diet Discharge Activity: Resume usual activity Patient Instructions: Acute Hematuria (ED), Abdominal Pain (ED), Flank Pain (ED) Activity Restrictions/Additional Instructions: Thank you for visiting the emergency department. You were seen and evaluated for flank pain. Given your history and laboratory and imaging findings the exact cause of this is somewhat unclear though likely related to a recently passed kidney stone. Please follow-up with your primary care provider and urologist. Please return to the emergency department for any reason that you are concerned about and feel needs emergency department evaluation. You may use [id number] medications for your symptoms however please do not exceed the daily recommended dosage and please keep in mind that many medications with different name brands contain the same active ingredients. Coding Level of Care Code ED Medication Administration Professional for Adelaida Hayes
[2021-02-03] MEDS: sodium chloride 0.9% 1,000 ML 999 ML IV (06:18)
[2021-02-03] MEDS: ondansetron 2 mg/ML SDV 2 mL 4 MG IVP (06:19)
[2021-02-03] MEDS: ketorolac 30 mg/mL INJ 15 MG IVP (06:19)
[2021-02-03] MEDS: acetaminophen 325 mg Tablet 650 MG PO (06:19)
[2021-02-03 06:20] VITALS: RESP 22; O2SAT 96
[2021-02-03] MEDS: morphine 4 mg/mL SDV 1 mL IVP (06:20)
[2021-02-03 06:36] LABS: Basophils # 0.1 10^3/uL (0.0-0.1); Eosinophils # 0.6 10^3/uL (0.0-0.8); Eosinophils % 5.7 %; Hematocrit 48.3 % (42.0-52.0); Hemoglobin 16.1 g/dL (11.7-16.6); Lymphocytes # 2.6 10^3/uL (0.8-4.8); Lymphocytes % 25.3 %; Mean Corpuscular HGB Conc 33.3 g/dL (30.0-36.0); Mean Corpuscular Hemoglobin 32.5 pg (28.0-34.0); Mean Corpuscular Volume 97.6 fl (80-94); Mean Platelet Volume 11.2 fL (7.4-10.4); Monocytes # 0.6 10^3/uL (0.2-0.9); Monocytes % 6.1 %; Neutrophils # 6.18 10^3/uL (1.8-7.7); Neutrophils % 61.3 %; Nucleated Red Blood Cells % 0 %; Platelet Count 156 10^3/cmm (130-400); Red Blood Count 4.95 10^6/uL (4.1-5.3); White Blood Count 10.1 10^3/uL (4.0-10.0)
[2021-02-03 07:02] LABS: Alanine Aminotransferase 15 U/L (0-41); Alkaline Phosphatase 71 IU/L (40-130); Blood Urea Nitrogen 16 mg/dL (8-23); C Reactive Protein 7.7 mg/L (0.0-4.9); Calcium 8.9 mg/dL (8.5-10.5); Carbon Dioxide 24 mmol/L (22-29); Chloride 103 mmol/L (98-107); Globulin 2.8 g/dL (1.3-4.6); Glucose 225 mg/dL (65-115); Lipase 21 U/L (13-60); Osmolality Calculated 294 mOsm/kg (285-295); Sodium 138 mmol/L (136-145); Total Bilirubin 0.5 mg/dL (0.15-1.2); Total Protein 6.8 g/dL (6.6-8.7)
[2021-02-03 07:03] LABS: Anion Gap 15.4 (5-19); Aspartate Amino Transferase 23 U/L (0-40); Potassium 4.4 mmol/L (3.5-5.1)
[2021-02-03 07:54] VITALS: BP 136/69; O2SAT 93
[2021-02-03 08:39] LABS: Urine Appearance SL Hazy (CLEAR); Urine Color Dark Yellow (Yellow); pH Urine 5 (5-7)
[2021-02-03 08:40] LABS: Add Urine Microscopic? YES; Bilirubin Urine Neg (Negative); Blood Urine 3+ (Negative); Glucose Urine UA 2+ (Normal); Ketones Urine Negative (Negative); Leukocyte Esterase Urine Trace (Negative); Nitrate Urine Negative (Negative); Protein Urine Trace (Negative); Urobilinogen Urine Norm (Negative)
[2021-02-03 08:41] LABS: Add Urine Culture? Yes; Bacteria Urine 1+ /hpf; RBC Urine >100 /hpf (0-2); Squamous Epithelial Cell Urine 0-4 /hpf (0-5)
[2021-02-03 09:00] VITALS: BP 117/69; PULSE 62; RESP 16; O2SAT 92
== END 2021-02-03 09:00 | disposition home or self-care (01) ==
PROVIDERS: Emergency Medicine; Emergency Provider Emergency Medicine; PCP Nurse Practitioner
DX: R10.9 Unspecified abdominal pain (principal); R31.9 Hematuria, unspecified; E11.9 Type 2 diabetes mellitus without complications; I50.9 Heart failure, unspecified; J44.9 Chronic obstructive pulmonary disease, unspecified; I25.10 Atherosclerotic heart disease of native coronary artery without angina pectoris; Z95.1 Presence of aortocoronary bypass graft; Z79.4 Long term (current) use of insulin; Z79.82 Long term (current) use of aspirin
CPT/HCPCS: 74176; 80053; 81001; 83690; 85025; 86140; 87086; 96361; 96374; 96375; 99284; J1885; J2270; J2405; J7030

== ENCOUNTER 2021-02-20 09:29 | Observation (INO) | payer OTHER, MEDICARE, SELFPAY ==
[2021-02-20] VITALS (11 sets, daily range): BP systolic 109–175; BP diastolic 43–94; PULSE 61–65; RESP 15–18; TEMP 36.7–36.9; O2SAT 92–98; BMI 41.5
--- NOTE | 2021-02-20 09:37 | CT_ITS ---
WS: [id number] CT ABDOMEN AND PELVIS NONCONTRAST HISTORY: flank pain TECHNIQUE: Imaging performed through the abdomen and pelvis. Coronal and sagittal reformats are submi tted. All CT scans at [facility] use at least one of these dose optimization techniques: automated exposure control; mA and/or kV adjustment per patient size (includes targeted exams where d ose is matched to clinical indication); or iterative reconstruction. DLP: 2240.58 mGy.cm COMPARISON: 02/03/2021 Lower thorax: Emphysematous changes at the lung bases. Mild pleural thickening. Multiple prior rib fr actures with healing. Some of the fractures have been stabilized with plates and screws. Normal size heart. No hiatal hernia. Liver: Mild hepatic steatosis. No mass. Gallbladder: Normal gallbladder. Pancreas: Normal size and attenuation. Normal pancreatic duct. No pancreatitis or mass. Spleen: Normal. Adrenal glands: Normal. No mass. Right kidney: Moderate perinephric stranding is new surrounding the RIGHT kidney. There is very mild dilatation of the renal pelvis and RIGHT ureter. Moderate periureteral stranding becomes more promine nt in the distal ureter. At the UV junction there is a 3 mm calcification causing the obstruction. I suspect there is probably an additional 2 mm calcification more proximally. No additional stones in t he RIGHT kidney. Left kidney: Mild stable perinephric stranding and cortical thinning. No obstruction. Aorta: Mild atherosclerosis abdominal aorta with no aneurysm. No free fluid, intraperitoneal air or significant lymphadenopathy. GI tract: Normal appendix. Mild diffuse fecal retention. Numerous diverticula in the sigmoid colon. N o acute inflammation. Abdominal wall: Negative. No hernia. Pelvis: Mild enlargement the prostate gland. Prostate measures 5.3 x 5.3 x 5.6 cm. Mild diffuse bladd er wall thickening. Inguinal canals are patent bilaterally containing fat only. No adenopathy or flui d in the pelvis. Osseous structures: Mild spondylitic changes in lumbar spine. No fracture. CT/CT kidney stone 37575 IMPRESSION: 1. New mild RIGHT hydroureteronephrosis and perinephric stranding secondary to 2 adjacent calcifications in the distal RIGHT ureter. Largest calcification me asures 3 mm. 2. Moderate atherosclerosis aorta. 3. Normal appendix. 4. Sigmoid diverticulosis without acute diverticulitis. 5. Prostate enlargement.
--- NOTE | 2021-02-20 09:45 | W.ED.MALEGU ---
HPI - Male Genitourinary General: Chief complaint: Urogenital-Male Stated complaint: POSSIBLE KIDNEY STONE Time Seen by Provider: 02/20/21 09:31 History of Present Illness: HPI Narrative: 75-year-old male with a history of kidney stones presents via EMS with complaint of right flank pain that began around 3 AM this morning woke him up is worse when he urinates he is not noticed any hematuria no dysuria urgency or frequency. He has had renal stones before. He denies any fever sweats or chills. Onset (ago): hour(s) Duration: constant Location: right flank Radiation: right inguinal region Severity: severe Quality: sharp Relieving factors: movement Exacerbating factors: urination Associated symptoms: Deny discharge, dysuria, fevers/chills, hematuria, nausea, rash, swelling, urinary incontinence, urinary retention, mass or vomiting Review of Systems Const: Denies: fever(s), chills, body aches, change in appetite, fatigue or malaise ENMT: Denies: throat pain, ear or mastoid pain, nasal discharge or nasal congestion Card: Denies: chest pain, edema, dyspnea on exertion or orthopnea Resp: Denies: dyspnea, productive cough or non-productive cough GI: Denies: nausea or vomiting : Denies: dysuria, urinary incontinence or hematuria Skin/Breast: Denies: rash or pruritus PFSH ED PFSH: Medical History Congestive heart failure Moderate aortic stenosis last echocardiogram COPD (chronic obstructive pulmonary disease) Chronically on 3 L of oxygen Coronary artery disease CABG x 4 in 2011, history of sternal nonunion. Diabetes type 2, uncontrolled High cholesterol History of kidney stones Hx of chest wall injury Moderate aortic stenosis by prior echocardiogram Neuropathy On home O2 Renal calculi Sleep apnea On CPAP Urethral stricture, postoperative Severe panurethral stricture disease requiring multiple dilations and endoscopic treatment. Complicating treatment of stones Uric acid urolithiasis Surgical History History of quadruple bypass Hx of lithotripsy Status post placement of ureteral stent Family History Mother , at age 76 COPD (chronic obstructive pulmonary disease) Father , at age 68-aortic aneurysm No problems noted. Social History Alcohol intake: former Marital status: Current occupational status: retired Current gender identity: Male Physical Exam Const: COMMON NORMALS: no acute distress GENERAL APPEARANCE: cooperative and comfortable ORIENTATION/CONSCIOUSNESS: Yes awake, Yes oriented to person, Yes oriented to place and Yes oriented to time HENMT: COMMON NORMALS: normocephalic, atraumatic and hearing grossly normal bilaterally HEAD & SCALP: normocephalic and atraumatic Neck/C-Spine: COMMON NORMALS: no JVD Lymph: LYMPHATIC: no lymphadenopathy noted and no lymphedema noted Resp: COMMON NORMALS: normal respiratory effort, No retractions, No use of accessory muscles and clear to auscultation bilaterally AUSCULTATION: clear to auscultation bilaterally Cardio: COMMON NORMALS: no JVD, regular rate, regular rhythm and No murmurs present (Cardio) RATE: regular rate RHYTHM: regular rhythm GI: COMMON NORMALS: Soft to palpation and No hepatosplenomegaly present AUSCULTATION: Yes normoactive bowel sounds PALPATION: Yes Soft to palpation, No Tenderness to palpation present (GI), No Guarding due to palpation present (GI) and Yes No hepatosplenomegaly present : BLADDER/KIDNEY EXAM: Yes CVA tenderness Back/Pelvis: GENERAL BACK: Yes CVA tenderness CVA tenderness: right Extremity: COMMON NORMALS: normal to inspection, capillary refill normal, no clubbing, cyanosis or edema, no calf tenderness and no pedal edema Neuro: SENSORIUM/ORIENTATION: Yes oriented to person, Yes oriented to place and Yes oriented to time Skin: COMMON NORMALS: no rashes or lesions noted GENERAL SKIN EXAM: no rashes or lesions noted Course Vital Signs: Vital signs: Vital Signs Temperature 98.3 F 02/22/21 07:40 Pulse Rate 69 02/22/21 07:50 Respiratory Rate 17 02/22/21 07:50 Blood Pressure 121/72 02/22/21 07:40 Pulse Oximetry 96 02/22/21 07:50 MDM - Male MDM Narrative: Medical decision making narrative: Reviewed findings the patient has nephrolithiasis will discharge home with Cipro and hydrocodone. Patient is already on tamsulosin 1 strain urine as below return if has further problems. Lab Data: Labs: Lab Results 02/20/21 02/20/21 02/20/21 Range/Units 09:55 09:55 10:02 WBC 13.1 H (4.0-10.0) 10^3/ uL RBC 4.75 (4.1-5.3) 10^6/u L Hgb 15.3 (11.7-16.6) g/dL Hct 47.2 (42.0-52.0) % MCV 99.4 H (80-94) fl MCH 32.2 (28.0-34.0) pg MCHC 32.4 (30.0-36.0) g/dL RDW 14.0 (12.1-15.1) % Plt Count 150 (130-400) 10^3/c mm MPV 11.0 H (7.4-10.4) fL Neut % (Auto) 73.6 % Lymph % (Auto) 17.0 % [place] % (Auto) 5.5 % Eos % (Auto) 2.9 % Baso % (Auto) 0.5 % Neut # (Auto) 9.63 H (1.8-7.7) 10^3/u L Lymph # (Auto) 2.2 (0.8-4.8) 10^3/u L [place] # (Auto) 0.7 (0.2-0.9) 10^3/u L Eos # (Auto) 0.4 (0.0-0.8) 10^3/u L Baso # (Auto) 0.1 (0.0-0.1) 10^3/u L Nucleated RBC % (a uto) 0 % Nucleated RBCs # 0.0 /100WBC Sodium 139 (136-145) mmol/L Potassium 4.8 (3.5-5.1) mmol/L Chloride 104 (98-107) mmol/L Carbon Dioxide 26 (22-29) mmol/L Anion Gap 13.8 (5-19) BUN 17 (8-23) mg/dL Creatinine 1.6 H (0.7-1.2) mg/dL GFR Calculation Not Reportable Glucose 231 H (65-115) mg/dL Calculated Osmolal ity 297 H (285-295) mOsm/k g Calcium 8.9 (8.5-10.5) mg/dL Total Bilirubin 0.7 (0.15-1.2) mg/dL AST 16 (0-40) U/L ALT 13 (0-41) U/L Alkaline Phosphata se 60 (40-130) IU/L Total Protein 6.7 (6.6-8.7) g/dL Albumin 3.6 (3.5-5.2) g/dL Globulin 3.1 (1.3-4.6) g/dL Urine Color Yellow (Yellow) Urine Appearance Hazy A (CLEAR) Urine pH 5 (5-7) Ur Specific Gravit y 1.020 (1.005-1.030) Urine Protein Neg (Negative) Urine Glucose (UA) 2+ H (Normal) Urine Ketones Negative (Negative) Urine Blood 3+ H (Negative) Urine Nitrate Negative (Negative) Urine Bilirubin Neg (Negative) Urine Urobilinogen Norm (Negative) mg/dL Ur Leukocyte Neida ase 1+ H (Negative) Urine RBC >100 H (0-2) /hpf Urine WBC >100 H (0-5) /hpf Ur Squamous Epith Cells 0-4 H (0-5) /hpf Uric Acid Crystals 5-10 H /hpf Amorphous Sediment Not Reportable Urine Bacteria Trace (NONE) /hpf Urine Yeast 1+ H /hpf Discharge Plan Discharge Patient Disposition: Home Clinical Impression: Right nephrolithiasis Condition: Stable Discharge Orders: Discharge Order (Routine); Ordered 02/22/21 Ordered By: Navdeep Harris Discharge Diet: Usual diet Discharge Activity: Increase activity as tolerated Coding Level of Care Code ED Dumping Machine Operator for g Fwd Exam Comprehensive
[2021-02-20 10:05] LABS: Basophils # 0.1 10^3/uL (0.0-0.1); Basophils % 0.5 %; Eosinophils # 0.4 10^3/uL (0.0-0.8); Eosinophils % 2.9 %; Hematocrit 47.2 % (42.0-52.0); Hemoglobin 15.3 g/dL (11.7-16.6); Lymphocytes # 2.2 10^3/uL (0.8-4.8); Mean Corpuscular HGB Conc 32.4 g/dL (30.0-36.0); Mean Corpuscular Hemoglobin 32.2 pg (28.0-34.0); Mean Corpuscular Volume 99.4 fl (80-94); Monocytes # 0.7 10^3/uL (0.2-0.9); Monocytes % 5.5 %; Neutrophils # 9.63 10^3/uL (1.8-7.7); Neutrophils % 73.6 %; Nucleated Red Blood Cells % 0 %; Platelet Count 150 10^3/cmm (130-400); Red Blood Count 4.75 10^6/uL (4.1-5.3); White Blood Count 13.1 10^3/uL (4.0-10.0)
[2021-02-20 10:28] LABS: Alanine Aminotransferase 13 U/L (0-41); Albumin Level 3.6 g/dL (3.5-5.2); Alkaline Phosphatase 60 IU/L (40-130); Anion Gap 13.8 (5-19); Aspartate Amino Transferase 16 U/L (0-40); Blood Urea Nitrogen 17 mg/dL (8-23); Calcium 8.9 mg/dL (8.5-10.5); Carbon Dioxide 26 mmol/L (22-29); Chloride 104 mmol/L (98-107); Globulin 3.1 g/dL (1.3-4.6); Glucose 231 mg/dL (65-115); Osmolality Calculated 297 mOsm/kg (285-295); Potassium 4.8 mmol/L (3.5-5.1); Sodium 139 mmol/L (136-145); Total Bilirubin 0.7 mg/dL (0.15-1.2); Total Protein 6.7 g/dL (6.6-8.7)
[2021-02-20 10:49] LABS: Add Urine Microscopic? YES; Bilirubin Urine Neg (Negative); Blood Urine 3+ (Negative); Glucose Urine UA 2+ (Normal); Ketones Urine Negative (Negative); Leukocyte Esterase Urine 1+ (Negative); Nitrate Urine Negative (Negative); Protein Urine Neg (Negative); Urine Appearance Hazy (CLEAR); Urine Color Yellow (Yellow); Urobilinogen Urine Norm (Negative); pH Urine 5 (5-7)
[2021-02-20 10:58] LABS: RBC Urine >100 /hpf (0-2); Squamous Epithelial Cell Urine 0-4 /hpf (0-5); WBC Urine >100 /hpf (0-5)
[2021-02-20 10:59] LABS: Bacteria Urine TRACE /hpf
[2021-02-20 11:00] LABS: Add Urine Culture? Yes
[2021-02-20] MEDS: ondansetron 2 mg/ML SDV 2 mL 4 MG IVP (11:11)
[2021-02-20] MEDS: morphine 4 mg/mL SDV 1 mL IVP (11:13)
--- NOTE | 2021-02-20 11:38 | P.HP_ITS ---
Providers/Chief Complaint Primary Care Provider: NEAL Rivera Chief Complaint: POSSIBLE KIDNEY STONE History of Present Illness Ambrose Villa is a 75 year old male who presents to the hospital with complaints of right flank pain occurring this a.m. abrupt in onset. He reports some nausea has been associated with it. It feels like renal stones he has had before. He has not had any fever, visible blood in his urine. He denies any history of Covid, or exposure. He has been vaccinated with his second dose of maternal vaccine in November. Review of Systems General: Reports: 10 or more systems reviewed and unremarkable except in HPI and below Const: Denies: fever(s) ENMT: Denies: throat pain Card: Denies: chest pain Resp: Denies: dyspnea GI: Reports: nausea; Denies: abdominal pain : Reports: flank pain; Denies: difficulty urinating Musc: Denies: neck pain Skin/Breast: Denies: rash Neuro: Denies: headache(s) Psych: Denies: anxiety or depression Endo: Denies: polyuria Rafa/Lymph: Denies: easy bruising All/Imm: Denies: urticaria Medications/Allergies Home Medications Medication Instructions Recorded Confirmed Last Taken Type albuterol sulfate 2 puff INHALATION Q6H PRN 07/15/19 01/30/21 01/09/20 06:30 History aspirin 81 mg PO DAILY@0600 07/15/19 01/30/21 09/20/20 History budesonide-formoterol [Symbicort] 2 puff INHALATION BID 07/15/19 01/30/21 01/09/20 06:30 History gabapentin 300 mg PO TID@06,12,18 07/15/19 01/30/21 09/20/20 History glipizide 10 mg PO BID@0600,1800 07/15/19 01/30/21 09/20/20 History pravastatin [Pravachol] 40 mg PO DAILY@0600,1800 07/15/19 01/30/21 09/20/20 History insulin glargine 100 unit/mL 50 unit SUBCUT DAILY@0600 ml 07/19/19 01/30/21 09/20/20 History subcutaneous solution alogliptin 25 mg tablet 25 mg PO DAILY@0600 12/29/19 01/30/21 09/20/20 History lisinopril 5 mg tablet 10 mg PO DAILY@0600 tab 12/29/19 01/30/21 09/20/20 History metoprolol tartrate 25 mg tablet 50 mg PO BID@0600,1800 tab 12/29/19 01/30/21 09/20/20 History furosemide 20 mg PO DAILY@0600 09/20/20 01/30/21 09/20/20 History isosorbide mononitrate 10 mg PO BID@0600,1300 09/20/20 01/30/21 09/20/20 History potassium chloride 20 meq PO BID@0600,1800 09/20/20 01/30/21 09/20/20 History metformin 500 mg tablet 500 mg PO DAILY 10/05/20 01/30/21 Unknown History ondansetron 4 mg PO Q6H PRN #14 tab 01/05/21 01/30/21 Unknown Rx tamsulosin [Flomax] 0.4 mg PO DAILY #14 cap 02/03/21 Unknown Rx cholecalciferol (vitamin D3) 50 mcg PO DAILY@0600 02/20/21 02/20/21 02/19/21 History [Vitamin D3] ciprofloxacin HCl [Cipro] 500 mg PO BID #14 tab 02/20/21 Unknown Rx hydrocodone-acetaminophen 1 tab PO Q6H PRN #25 tab 02/20/21 Unknown Rx ondansetron HCl [Zofran] 4 mg PO Q6H PRN #20 tab 02/20/21 Unknown Rx Allergies Allergy/AdvReac Type Severity Reaction Status Date / Time Penicillins Allergy ALGY-Difficulty Verified 01/30/21 10:02 Breathing PFSH Acute PFSH: Medical History (Updated 02/20/21 @ 11:44 by Navdeep Harris MD) Congestive heart failure Moderate aortic stenosis last echocardiogram COPD (chronic obstructive pulmonary disease) Chronically on 3 L of oxygen Coronary artery disease CABG x 4 in 2011, history of sternal nonunion. Diabetes type 2, uncontrolled High cholesterol History of kidney stones Hx of chest wall injury Moderate aortic stenosis by prior echocardiogram Neuropathy On home O2 Renal calculi Sleep apnea On CPAP Urethral stricture, postoperative Severe panurethral stricture disease requiring multiple dilations and endoscopic treatment. Complicating treatment of stones Uric acid urolithiasis Surgical History History of quadruple bypass Hx of lithotripsy Status post placement of ureteral stent Family History Mother , at age 76 COPD (chronic obstructive pulmonary disease) Father , at age 68-aortic aneurysm No problems noted. Social History Alcohol intake: former Marital status: Current occupational status: retired Current gender identity: Male Vitals/I&O/Wt Last Vital Signs Temp 98.4 F 02/20/21 09:31 Pulse 61 02/20/21 11:00 Resp 15 02/20/21 11:13 BP 162/74 02/20/21 11:00 Pulse Ox 93 02/20/21 11:13 Weight last 48 hrs Weight 120.202 kg Physical Exam Narrative: EXAM NARRATIVE: General exam is a white male, no distress HEENT: Pupils equally round. Oropharynx clear. Atraumatic normocephalic. Neck is supple no lymphadenopathy or thyromegaly Cardiovascular regular rate and rhythm with a 2/6 systolic murmur Lungs clear but with diminished breath sounds bilaterally. No wheezes. No crackles. Abdomen is soft obese nontender with positive bowel sounds. No obvious organomegaly exam is deferred Extremities no cyanosis clubbing or edema, cap refill brisk Skin no rash Neuro no obvious focal deficits. Data : 02/20/21 09:55 02/20/21 09:55 Other data: LFTs normal Urinalysis greater than 100 reds, greater than 100 whites, negative nitrate, 1+ leukocyte Estrace CT renal protocol demonstrates new mild right hydronephrosis with perinephric stranding into calcifications 1 in the distal ureter. Atherosclerosis, diverticulosis, and prostate enlargement also noted. A&P Assessment and plan (1) Right nephrolithiasis: Right renal stone, possible UTI, associated with right hydronephrosis. Urology consult N.p.o. Hydration as tolerated. Must be somewhat cautious with history of CHF. Last echo showed EF of 50%, 1/4 diastolic dysfunction Ceftriaxone IV secondary to concern of possible UTI Urine culture At current point in time observation stay is appropriate. Continue Flomax Status: Acute (2) Hydronephrosis, right: See above Status: Acute (3) Acute kidney injury: Hydration Recheck in a.m. Status: Acute (4) UTI (urinary tract infection): Urine culture Rocephin Status: Acute (5) COPD (chronic obstructive pulmonary disease): No evidence of exacerbation. Continue home oxygen Status: Acute (6) Congestive heart failure: No evidence of exacerbation. Currently compensated. Monitor for fluid overload Status: Acute (7) Diabetes type 2, uncontrolled: Sliding scale insulin Status: Acute Additional A&P Information Multiple other medical problems as outlined in past medical history Full code SCDs for DVT prophylaxis. Observation patient, pharmacologic likely not needed Attestations Medical Necessity Statement*: Will need less than 2 midnight stay for evaluation and treatment of acute kidney injury, right ureteral stone with hydronephrosis. Time Spent in Patient Care: Greater than 35 minutes Coding Level of Care Code Acute Personnel Records Clerk for g Fwd Diagnoses Right nephrolithiasis N20.0 Hydronephrosis, right N13.30 Acute kidney injury N17.9 UTI (urinary tract infection) N39.0 COPD (chronic obstructive pulmonary disease) J44.9 Congestive heart failure I50.9 Diabetes type 2, uncontrolled E11.65
[2021-02-20 12:40] LABS: Glucose Point of Care 181 mg/dL (70-110)
[2021-02-20] MEDS: sodium chloride 0.9% 1,000 ML 100 ML IV ×2 (12:49→22:01)
[2021-02-20] MEDS: ciprofloxacin 400 MG/200 ML PREMIX 200 MG IV (12:50)
[2021-02-20] MEDS: gabapentin 300 mg Capsule PO ×2 (12:56→18:10)
--- NOTE | 2021-02-20 14:09 | PC.NURSE ---
ENTERED PATIENT ROOM, PATIENT STATES THAT HE IS IN DISCOMFORT, RATING PAIN AN 8/10. MORPHINE ORDERED FOR Q4H. NEXT PATIENT DOSE TO BE GIVEN AT 1430. PATIENT GIVEN BLANKET AND EXTRA PILLOW FOR COMFORT. PATIENT HAS NO FURTHER NEEDS AT THIS TIME.
[2021-02-20] MEDS: morphine 4 mg/mL SDV 1 mL 2 MG IVP (15:00)
[2021-02-20 17:37] LABS: Glucose Point of Care 123 mg/dL (70-110)
[2021-02-20] MEDS: metoprolol tartrate 50 mg Tablet PO (18:09)
[2021-02-20] MEDS: isosorbide mononitrate 20 mg Tablet 10 MG PO (18:10)
--- NOTE | 2021-02-20 19:06 | PM.CONSULT ---
Providers/Reason For Consult Consulting Physician/Specialty*: Iglesias/urology Reason for Consult*: Obstructing right distal ureteral stones x2 Requesting Physician: Dr. Harris Attending Physician: Navdeep Harris MD Primary Care Provider: NEAL Rivera History of Present Illness History of Present Illness Ambrose Villa is a 75 year old male well-known to me for history of uric acid UROLITHIASIS and complex urethral stricture disease which requires self clean intermittent catheterization to maintain stricture patency. As of late he is done an excellent job in maintaining an appropriate catheterization program to prevent restenosis. Regarding stones as recently as 2 weeks ago he had a CT scan that showed no evidence of right ureteral calculi or renal calculi and it was presumed that he had passed a stone. Today he developed acute onset of severe right flank pain radiating around to the front and associated with nausea. No fever or chills. No severe lower urinary tract symptoms. Typical for his previous renal colic. Work-up in the ED: White count was 13.1 Creatinine 1.6, normal liver functions. Urinalysis showed greater than 100 RBCs and white cells. Nitrite was negative. Because of the concern related to potential UTI and obstructing stone he was admitted for further treatment and evaluation. He has multiple other medical problems: Diabetes, recurrent UTIs, recurrent nephrolithiasis, coronary artery disease, history of congestive heart failure, sleep apnea, morbid obesity, chronic O2 dependency Review of Systems Const: Denies: fever(s), chills or malaise Eyes: Denies: change in vision or eye discharge ENMT: Denies: hoarseness Card: Denies: chest pain or palpitations GI: Reports: abdominal pain and nausea : Reports: flank pain; Denies: hematuria Musc: Denies: joint redness or joint warmth Skin/Breast: Denies: rash or skin tenderness Neuro: Denies: headache(s) or confusion Psych: Reports: anxiety; Denies: loss of interest or memory loss Endo: Denies: flushing Rafa/Lymph: Denies: easy bruising, easy bleeding or enlarged lymph nodes All/Imm: Denies: urticaria or acute wheezing Meds/Allergies Home Medications and Allergies Home Medications Medication Instructions Recorded Confirmed Last Taken Type albuterol sulfate 2 puff INHALATION Q6H PRN 07/15/19 02/20/21 01/09/20 06:30 History aspirin 81 mg PO DAILY@0600 07/15/19 02/20/21 02/19/21 History budesonide-formoterol [Symbicort] 2 puff INHALATION BID PRN 07/15/19 02/20/21 01/09/20 06:30 History gabapentin 300 mg PO TID@06,12,18 07/15/19 02/20/21 02/19/21 History glipizide 10 mg PO BID@0600,1800 07/15/19 02/20/21 02/19/21 History insulin glargine 100 unit/mL 50 unit SUBCUT DAILY@0600 ml 07/19/19 02/20/21 02/19/21 History subcutaneous solution alogliptin 25 mg tablet 25 mg PO DAILY@0600 MDD see 12/29/19 02/20/21 09/20/20 History pharmacy comment metoprolol tartrate 25 mg tablet 50 mg PO BID@0600,1800 tab 12/29/19 02/20/21 02/20/21 History furosemide 20 mg PO DAILY@0600 09/20/20 02/20/21 02/19/21 History potassium chloride 20 meq PO BID@0600,1800 09/20/20 02/20/21 02/19/21 History tamsulosin [Flomax] 0.4 mg PO DAILY #14 cap 02/03/21 02/20/21 02/19/21 Rx cholecalciferol (vitamin D3) 50 mcg PO DAILY@0600 02/20/21 02/20/21 02/19/21 History [Vitamin D3] ciprofloxacin HCl [Cipro] 500 mg PO BID #14 tab 02/20/21 Unknown Rx hydrocodone-acetaminophen 1 tab PO Q6H PRN #25 tab 02/20/21 Unknown Rx lisinopril 10 mg PO DAILY 02/20/21 02/20/21 02/20/21 History pravastatin 40 mg PO DAILY 02/20/21 02/20/21 02/19/21 History Allergies Allergy/AdvReac Type Severity Reaction Status Date / Time Penicillins Allergy ALGY-Difficulty Verified 01/30/21 10:02 Breathing Current Medications Current Medications Generic Name Dose Route Start Last Admin Trade Name Freq PRN Reason Stop Dose Admin Gabapentin 300 mg 02/20/21 12:00 02/20/21 18:10 Gabapentin 300 Mg Capsule PO 300 mg TID@06,12,18 VIRGIL Administration Sodium Chloride 1,000 mls @ 100 mls/hr 02/20/21 12:00 02/20/21 12:49 Sodium Chloride 0.9% IV 100 mls/hr .Q10H VIRGIL Administration Ciprofloxacin/Dextrose 400 mg in 200 mls @ 200 mls/hr 02/20/21 13:00 02/20/21 13:57 Cipro IV Infused Q12H VIRGIL Infusion Insulin Aspart 0 unit 02/20/21 12:00 02/20/21 18:08 Insulin Aspart 100 Unit/1 Ml SUBCUT Not Given WM&BEDTIME VIRGIL Protocol Isosorbide Mononitrate 10 mg 02/20/21 18:00 02/20/21 18:10 Isosorbide Mononitrate 20 Mg Tablet PO 10 mg BID VIRGIL Administration Metoprolol Tartrate 50 mg 02/20/21 18:00 02/20/21 18:09 Metoprolol Tartrate 50 Mg Tablet PO 50 mg BID VIRGIL Administration Morphine Sulfate 2 mg 02/20/21 11:49 02/20/21 15:00 Morphine 4 Mg/Ml Sdv 1 Ml IVP 2 mg Q4H PRN Administration SEVERE PAIN PFSH Acute PFSH: Medical History Congestive heart failure Moderate aortic stenosis last echocardiogram COPD (chronic obstructive pulmonary disease) Chronically on 3 L of oxygen Coronary artery disease CABG x 4 in 2011, history of sternal nonunion. Diabetes type 2, uncontrolled High cholesterol History of kidney stones Hx of chest wall injury Moderate aortic stenosis by prior echocardiogram Neuropathy On home O2 Renal calculi Sleep apnea On CPAP Urethral stricture, postoperative Severe panurethral stricture disease requiring multiple dilations and endoscopic treatment. Complicating treatment of stones Uric acid urolithiasis Surgical History History of quadruple bypass Hx of lithotripsy Status post placement of ureteral stent Family History Mother , at age 76 COPD (chronic obstructive pulmonary disease) Father , at age 68-aortic aneurysm No problems noted. Social History Alcohol intake: former Marital status: Current occupational status: retired Current gender identity: Male Vitals/I&O/Wt Last Vital Signs Temp 98.0 F 02/20/21 16:00 Pulse 65 02/20/21 16:02 Resp 18 02/20/21 16:02 BP 122/76 02/20/21 16:00 Pulse Ox 92 02/20/21 16:02 02/20/21 02/20/21 02/20/21 06:59 14:59 22:59 Intake Total 200 / 200 120 / 320 Output Total 250 / 250 Balance 200 / 200 -130 / 70 Weight last 48 hrs Weight 280 lb 9.6 oz Weight 265 lb Physical Exam Const: COMMON NORMALS: no acute distress, alert and well nourished GENERAL APPEARANCE: well kempt and well developed ORIENTATION/CONSCIOUSNESS: not confused HENMT: COMMON NORMALS: normocephalic and atraumatic HEAD & SCALP: normocephalic and atraumatic Neck/C-Spine: COMMON NORMALS: full ROM Resp: COMMON NORMALS: normal respiratory effort EFFORT & INSPECTION: No labored and No Actively coughing Neuro: SENSORIUM/ORIENTATION: Yes alert Psych: COMMON NORMALS: mental status grossly normal APPEARANCE: Yes grossly normal and Yes well kempt ATTITUDE: Yes calm and Yes engaged Skin: COMMON NORMALS: no rashes or lesions noted and no jaundice GENERAL SKIN EXAM: no rashes or lesions noted A&P Assessment and plan (1) Right distal ureteral calculus: Status: Acute (2) Pyuria: Status: Acute (3) Uric acid urolithiasis: Status: Chronic (4) Urethral stricture, postoperative: Status: Chronic (5) False passage of urethra: Status: Acute (6) Acute left flank pain: Status: Acute (7) Diabetes type 2, uncontrolled: Status: Acute Consult Attestations Medical Necessity Statement: See attending. Hospitalized because of refractory pain but also concern for potential infectious complications related to obstruction and pyuria Time Spent in Patient Care: Greater than 35 minutes (>than 50% of time spent in counselling and/or direct pt care on unit). Patient examined, history, and chart review, x-ray reviewed. Coding Level of Care Code Acute Pss Delivery Professional for [facility] Diagnoses Right distal ureteral calculus N20.1 Pyuria R82.81 Uric acid urolithiasis N20.9 Urethral stricture, postoperative False passage of urethra N36.5 Acute left flank pain R10.9 Diabetes type 2, uncontrolled E11.65
--- NOTE | 2021-02-20 20:19 | PC.NURSE ---
URINE STRAINED, NO STONES VISUALIZED, URINE ORANGE IN COLOR WITH STRONG ODOR.
[2021-02-20 20:57] LABS: Glucose Point of Care 98 mg/dL (70-110)
[2021-02-20] MEDS: insulin glargine 100 units/1 mL 20 UNIT SUBCUT (21:59)
[2021-02-21] VITALS (9 sets, daily range): BP systolic 101–124; BP diastolic 52–71; PULSE 63–80; RESP 17–22; TEMP 36.5–37.4; O2SAT 90–97
--- NOTE | 2021-02-21 04:52 | PC.NURSE ---
PT BLADDER SCANNED RESULTING IN =< 28ML SHOWN THROUGHOUT SCAN
--- NOTE | 2021-02-21 04:54 | PC.NURSE ---
URINE STRAINED, NO STONES VISUALIZED. URINE ORANGE IN COLOR WITH STRONG ODOR AND MUCUS.
[2021-02-21] MEDS: gabapentin 300 mg Capsule PO (05:00)
[2021-02-21] MEDS: aspirin 81 mg EC Tablet PO (05:00)
[2021-02-21 05:12] LABS: Basophils # 0.1 10^3/uL (0.0-0.1); Basophils % 0.6 %; Eosinophils # 0.5 10^3/uL (0.0-0.8); Eosinophils % 3.5 %; Hematocrit 44.5 % (42.0-52.0); Hemoglobin 13.9 g/dL (11.7-16.6); Lymphocytes # 2.6 10^3/uL (0.8-4.8); Lymphocytes % 20.3 %; Mean Corpuscular HGB Conc 31.2 g/dL (30.0-36.0); Mean Corpuscular Volume 102.3 fl (80-94); Mean Platelet Volume 10.8 fL (7.4-10.4); Monocytes # 0.8 10^3/uL (0.2-0.9); Monocytes % 6.1 %; Neutrophils # 8.95 10^3/uL (1.8-7.7); Neutrophils % 69.2 %; Nucleated Red Blood Cells % 0 %; Platelet Count 163 10^3/cmm (130-400); Red Blood Count 4.35 10^6/uL (4.1-5.3); Red Cell Distribution Width 14.1 % (12.1-15.1); White Blood Count 12.9 10^3/uL (4.0-10.0)
[2021-02-21 05:30] LABS: Anion Gap 14.9 (5-19); Blood Urea Nitrogen 19 mg/dL (8-23); Calcium 8.3 mg/dL (8.5-10.5); Carbon Dioxide 23 mmol/L (22-29); Chloride 103 mmol/L (98-107); Glucose 159 mg/dL (65-115); Osmolality Calculated 288 mOsm/kg (285-295); Potassium 4.9 mmol/L (3.5-5.1); Sodium 136 mmol/L (136-145)
[2021-02-21 06:30] LABS: Glucose Point of Care 138 mg/dL (70-110)
--- NOTE | 2021-02-21 07:39 | PM.PN ---
Subjective Subjective: Interval history: Urology follow-up: T-max last night was 99.4. Afebrile prior and since that 1 low-grade elevation. Denies any fever or chills. Not having any significant pain. He does not think he is asked for any pain medicine since I saw him last night. No stone passage yet and strainer. White count is still mildly elevated but improved. Vital signs have been stable. Discussion: I do not think he needs surgery at this point. He is clinically stable with no evidence of progressive infectious issues. While he did have RBCs and white cells in his urine he does do chronic self-catheterization which is likely because of contamination. Has had no upper urinary tract type infectious symptoms. Regarding his pain it has improved significantly with initial treatment. He did not have any pain medicine at home which would have likely kept him home had he been able to control his pain. I think it might be very reasonable for him to be managed on outpatient basis if there is no progression of infectious symptoms today. Will review with Dr. Harris regarding that issue. Creatinine has bumped up today to 2.1. If continues to rise we will proceed with intervention for the stones. Still believe he has a very significant chance of spontaneous passage of the very small stones Vitals/I&O/Wt Last Vital Signs Temp 97.7 F 02/21/21 07:19 Pulse 70 02/21/21 07:19 Resp 20 H 02/21/21 07:19 BP 108/71 02/21/21 07:19 Pulse Ox 92 02/21/21 07:19 02/20/21 02/21/21 02/21/21 22:59 06:59 14:59 Intake Total 1520 / 1720 380 / 2100 Output Total 450 / 450 330 / 780 Balance 1070 / 1270 50 / 1320 Weight last 48 hrs Weight 280 lb 9.6 oz Weight 265 lb Physical Exam Const: COMMON NORMALS: no acute distress, alert and well nourished GENERAL APPEARANCE: well kempt and well developed ORIENTATION/CONSCIOUSNESS: not confused Neck/C-Spine: COMMON NORMALS: full ROM Resp: COMMON NORMALS: normal respiratory effort EFFORT & INSPECTION: No labored and No Actively coughing Neuro: SENSORIUM/ORIENTATION: Yes alert Psych: COMMON NORMALS: mental status grossly normal APPEARANCE: Yes grossly normal and Yes well kempt ATTITUDE: Yes calm and Yes engaged Data : 02/21/21 04:58 02/21/21 04:58 Micro: Microbiology 02/20/21 10:02 Urine Culture - Preliminary Urine,Clean Catch A&P Assessment and plan (1) Right distal ureteral calculus: No stone passage yet. Improved pain. No progression of infectious symptoms. Additional work-up ongoing by hospitalist service. Status: Acute (2) Uric acid urolithiasis: Status: Chronic (3) Urethral stricture, postoperative: Status: Chronic (4) False passage of urethra: Status: Acute Attestations Medical Necessity Statement*: See attending Coding Level of Care Code Acute Sales And Retail Management Recruiter for Chg Fwd Exam Expanded Problem Focused Diagnoses Right distal ureteral calculus N20.1 Uric acid urolithiasis N20.9 Urethral stricture, postoperative False passage of urethra N36.5
[2021-02-21] MEDS: tamsulosin 0.4 mg Capsule PO (08:30)
--- NOTE | 2021-02-21 08:32 | PC.NURSE ---
Metoprolol and Isosorbide held this morning due to soft blood pressures 100s/50's. Pt states his normal blood pressures run 130-140's and agree on holding blood pressure meds. Will continue to monitor.
--- NOTE | 2021-02-21 09:23 | PC.CHAP ---
Pastoral Care Encounter/Spiritual Assessment Type of Contact [] Declined cytopathologist visit [] Patient/Family/Request visit [] Outpatient visit [] Follow-up visit [] Physician referral [] Code/Alert [x] Routine visit [] Staff referral [] Actively dying [] Patient sleeping [] Family support [] [] Out of room [] Palliative care [] [] Receiving care in room [] Pre-surgical visit [] Trauma [] Long length of stay [] ICU visit [] Other: Relational/Emotional Strength [x] Patient feels connected with others/family/visitors/staff [] Distress [] Loneliness/isolation [] Abandonment Spirituality of Patient [x] Person of Molly [x] Attends Jain of their Molly [x] Believes in Prayer [] Reads Bible or Religion materials [] There are Spiritual issues to be addressed Interactive Art Director Interventions [x] Prayer [x] Active listening [x] Non-anxious presence [] Spiritual/emotional support [] Crisis/trauma care [] Spiritual counseling [] Bereavement support [] Provided bereavement packet [] Provided Bible/devotional materials [] Provided toy/stuffed animal, coloring book to patient or family member [] Provided Communion [] Anointing/Vail [] Salvation [x] Completed spiritual assessment [] Other: Impact on Illness or Injury [] Angry [] Fearful [] Anxious [] Often cries [] Exhaustion [] Unable to work [] Unable to attend pentecostalism [] Unable to walk/stand [] Unable to read [] Unable to drive [] Unable to eat/drink [] Unable to sleep [] Unable to be with family [] Patient intubated [] Other: Summary Time spent with patient 20 min
--- NOTE | 2021-02-21 10:16 | P.PN_ITS ---
Documented by User: KIERRA Loya STDNT 02/21/21 11:07 Subjective Subjective: Interval history: Reports pain and nausea have improved. Complains of unsteady gait and incoordination that began this morning, concerning of cerebellar signs. Medications: Reviewed: Yes Vitals/I&O/Wt Last Vital Signs Temp 97.7 F 02/21/21 07:19 Pulse 70 02/21/21 07:19 Resp 20 H 02/21/21 07:19 BP 108/71 02/21/21 07:19 Pulse Ox 92 02/21/21 07:19 02/20/21 02/21/21 02/21/21 22:59 06:59 14:59 Intake Total 1520 / 1720 380 / 2100 500 / 500 Output Total 450 / 450 330 / 780 Balance 1070 / 1270 50 / 1320 500 / 500 Weight last 48 hrs Weight 127.278 kg Weight 120.202 kg Physical Exam Narrative: EXAM NARRATIVE: General: no acute distress. orientated x3 HEENT: Pupils equally round. Oropharynx clear. Atraumatic normocephalic. Neck: supple no lymphadenopathy, thyromegaly, or JVD. Cardiovascular: regular rate and rhythm with a 2/6 systolic murmur Lungs: clear but with diminished breath sounds bilaterally. No wheezes. No crackles. Abdomen: soft obese nontender with positive bowel sounds. No obvious organomegaly : exam is deferred. Extremities: full ROM. No cyanosis clubbing or edema, cap refill brisk. Neuro: abnormal finger to nose. normal heel to marie. oriented x3. 5/5 strength throughout. no focal deficits. Skin no rash Data : 02/21/21 04:58 02/21/21 04:58 Micro: Microbiology 02/20/21 10:02 Urine Culture - Preliminary Urine,Clean Catch A&P Additional A&P Information -Concern of Cerebellar Signs CT w/o contrast and carotid duplex Continue aspirin 1) Right nephrolithiasis: Right renal stone 3mm, possible UTI, associated with right hydronephrosis. Urology consulted. Surgery not recommended at this time. Continue Ciprofloxacin IV secondary to concern of possible UTI. Urine culture pending N.p.o. Hydration as tolerated. Must be somewhat cautious with history of CHF. Last echo showed EF of 50%, 1/4 diastolic dysfunction Monitor kidney function. Continue Flomax (2) Hydronephrosis, right: See above (3) Acute kidney injury: Cr increased to 2.1 Recheck in a.m. (4) UTI (urinary tract infection): Urine culture pending Urinalysis showed greater than 100 RBCs and white cells. Nitrite was negative. continue ciprofloxacin (5) COPD (chronic obstructive pulmonary disease): No evidence of exacerbation. Continue home oxygen (6) Congestive heart failure: No evidence of exacerbation. Currently compensated. Monitor for fluid overload (7) Diabetes type 2, uncontrolled: Sliding scale insulin Full code SCDs for DVT prophylaxis. Coding Level of Care Code Acute Glazier Supervisor for Chg Fwd Diagnoses Right nephrolithiasis N20.0 Hydronephrosis, right N13.30 Acute kidney injury N17.9 UTI (urinary tract infection) N39.0 COPD (chronic obstructive pulmonary disease) J44.9 Congestive heart failure I50.9 Diabetes type 2, uncontrolled E11.65 Documented by User: Navdeep Harris MD 02/21/21 11:20 Subjective 2 Subjective: Interval history: Agree with above. Patient relates he woke up with symptoms of discoordination on both sides upper extremities and a slightly unsteady gait. He reports he can still walk to the bathroom without walker or other assistance. He reports he was normal when he went to sleep last night. He denies any headache, nausea, head injury. He reported he thought it was due to the morphine but when I pointed out to him he has not had it morphine since yesterday he seems more concerned. Medications: Reviewed: Yes Physical Exam Narrative: EXAM NARRATIVE: Agree with above exam. No obvious visual field defects. He seems to do well with finger to finger on both sides during my exam but has difficulty finding his nose on both sides. Other cerebellar signs do not seem to be present. [id number] is done without difficulty. He has no n eglect. No other neurologic deficits are noted. At most on NIH stroke scale he would score of 2. Data : 02/21/21 04:58 09/01/21 04:58 A&P Assessment and plan (1) Right nephrolithiasis: Right ureteral stone with associated right hydronephrosis seen on CT renal protocol associated with possible UTI Placed on Cipro yesterday as allergic to penicillin products with potential anaphylaxis. Awaiting urine culture. Hydration initiated, but patient relates to nursing that he is feeling short of breath this morning so this was reduced and a dose of IV Lasix was given at 40 mg. Continue Flomax Associated with acute kidney injury. As renal function has not stabilized he will need to stay in the hospital for further monitoring. Reduce metoprolol dosing Status: Acute (2) Hydronephrosis, right: Status: Acute (3) Acute kidney injury: Creatinine slightly worse, see above Status: Acute (4) UTI (urinary tract infection): Continue Cipro, await culture Status: Acute (5) COPD (chronic obstructive pulmonary disease): No evidence of exacerbation Status: Acute (6) Congestive heart failure: Some shortness of breath today.. Fluids discontinued. IV Lasix 40 mg x 1 Status: Acute (7) Diabetes type 2, uncontrolled: Sliding scale insulin Status: Acute Additional A&P Information Possible CVA. Equivocal cerebellar signs. Continue statin. Ensure he gets a full aspirin every day. CT head noncontrast, carotid ultrasound, placed on telemetry, check EKG, echocardiogram. Physical therapy evaluation. We will also reduce Neurontin as this could contribute to imbalance in face of renal failure. Blood sugar is not low. Neurologic checks at least every 4 hours Patient with feelings of shortness of breath with fluid. Fluid discontinued, Lasix 40 mg IV x1. Multiple other medical problems as outlined in past medical history Full code SCDs for DVT prophylaxis. As no discharge today initiate heparin for DVT prophylaxis Attestations Medical Necessity Statement*: Needs continued hospital stay secondary to acute kidney injury with failure of renal function to improve as well as close monitoring with right ureterolithiasis with hydronephrosis. Coding Level of Care Code Acute Glazier Supervisor for Chg Fwd Diagnoses Right nephrolithiasis N20.0 Hydronephrosis, right N13.30 Acute kidney injury N17.9 UTI (urinary tract infection) N39.0 COPD (chronic obstructive pulmonary disease) J44.9 Congestive heart failure I50.9 Diabetes type 2, uncontrolled E11.65
[2021-02-21 10:19] LABS: Glucose Point of Care 158 mg/dL (70-110)
--- NOTE | 2021-02-21 10:23 | ECG_ITS ---
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 Measurements Intervals [place] Rate: 70 P: 42 [place]: 166 QRS: -38 QRSD: 102 T: 27 QT: 403 QTc: 436 Interpretive Statements SINUS RHYTHM LEFT AXIS DEVIATION [QRS AXIS < -30] PATTERN CONSISTENT WITH PULMONARY DISEASE POSSIBLE INFERIOR MYOCARDIAL INFARCTION , PROBABLY OLD [30 ms Q WAVE IN II/aVF] Compared to ECG 01/05/2021 04:57:18 Myocardial infarct finding now present Sinus bradycardia no longer present Intraventricular conduction delay no longer present T-wave abnormality no longer present Possible ischemia no longer present Electronically Signed On 02-21-2021 19:43:19 CDT by Hansa Humphery M.D. [id number]
--- NOTE | 2021-02-21 10:23 | CT_ITS ---
WS: [id number] CT HEAD NONCONTRAST HISTORY: possible CVA TECHNIQUE: Contiguous axial imaging performed through the brain in 2.5 mm imaging. Bone and soft tiss ue windows. Sagittal and coronal reformats reviewed. All CT scans at [facility] use at ast one of these dose optimization techniques: automated exposure control; mA and/or kV adjustment pe r patient size (includes targeted exams where dose is matched to clinical indication); or iterative r econstruction. DLP: 1022.52 mGy.cm COMPARISON: 06/17/2019 No acute intracranial hemorrhage, midline shift or mass effect. Mild cerebral and cerebellar atrophy. Very minimal chronic microvascular ischemic type changes. Ventricles: Normal size with no hydrocephalus. Paranasal sinuses: Mild mucoperiosteal thickening in the ethmoid air cells bilateral. Mastoid air cells: Well pneumatized. Calvarium and scalp: Skull is intact with no soft tissue edema or swelling. CT/CT head wo con* [id number] IMPRESSION: 1. No acute intracranial hemorrhage or edema. 2. Mild cerebral and cerebellar atrophy with mild chronic microvascular ischem ic change. Stable since 06/17/2019.
--- NOTE | 2021-02-21 10:23 | USCV_ITS ---
Ambrose Villa Age: 75 Gender: M : 1945 Exam Date: 02/21/2021 12:37 Ordering Phys: Navdeep Harris MD Technologist: [place] [facility] [place]: CVA BP: 124 / 69 HR: Rhythm: Sinus Technical Quality: Adequate MEASUREMENTS (Male / Female) Normal Values 2D ECHO LV Ejection Fraction MOD 2C 56.8 % LV Ejection Fraction 2C AL 58.2 % DOPPLER AV Peak Velocity 154.3 cm/s LVOT Peak Velocity 87.0 cm/s MV Area PHT 5.0 cm squared Mitral E to A Ratio 1.2 MV E' Velocity 95.0 cm/s Mitral E to LV E' Septal Ratio 13.0 TR Peak Velocity 179.0 cm/s TR Peak Gradient 12.8 mmHg TV Peak E Velocity 109.0 cm/s Right Atrial Pressure 3.0 mmHg Pulmonary Artery Systolic Pressu 15.8 mmHg FINDINGS Left Ventricle Normal left ventricular cavity size. Normal left ventricular systolic function. Left ventricular ejection fraction is estimated at 60 %. No regional wall motion abnormalities. Abnormal septal motion consistent with conduction abnormality. No left ventricular apical thrombus. Right Ventricle Probably normal right ventricular systolic function. Right Atrium Right atrium not well visualized. Mildly increased right atrial size. Left Atrium Normal left atrial size. Left atrium not well visualized. Mitral Valve Structurally normal mitral valve. Aortic Valve Aortic valve not well visualized. No significant aortic valve stenosis. Tricuspid Valve Tricuspid valve not well visualized. Mild tricuspid valve regurgitation. Pulmonic Valve Pulmonic valve not well visualized. Pericardium No pericardial effusion. Aorta Aorta not well visualized. CONCLUSIONS 1. This is a technically very difficult study. Optison was used per protocol. 2. Normal left ventricular cavity size. Normal left ventricular systolic function. Left ventricular ejection fraction is estimated at 60 %. No regional wall motion abnormalities. 3. Mildly increased right atrial size. 4. Mild tricuspid valve regurgitation. 5. Direct comparison to previous study dated 01/10/2020 is not possible given technically difficult study. Coleen Graves MD (Electronically Signed) Final Date: 21 February 2021 19:09 S
--- NOTE | 2021-02-21 10:23 | USCV_ITS ---
Daisy Ambrose Age: 75 Gender: M : 1945 Exam Date: 02/21/2021 13:02 Ordering Phys: Navdeep Harris MD Technologist: [place] [facility] [place]: POSS CVA Risk Factors: Previous Vascular Surgery: CABG Right Brachial BP: / Left Brachial BP: / Right Left Velocity (cm/s) Spectral Plaque Velocity (cm/s) Spectral Plaque Syst/Diast Broadening Syst/Diast Broadening 67.50/ 13.70 Prox CCA 80.30 / 17.10 46.10/ 12.00 Mid CCA 86.30 / 17.90 53.90/ 13.45 Distal CCA 67.50 / 11.10 64.10/ 14.50 Prox ICA 68.40 / 23.10 71.80/ 18.80 Mid ICA 93.10 / 30.80 67.50/ 21.40 Distal ICA 73.50 / 27.30 93.10 ECA 87.20 1.06 ICA/CCA 1.08 Antegrade Vertebral Antegrade 54.00/ 20.00 cm/s 70.90/ 12.80 cm/s Bi Subclavian Tri 100.8 69.90 0 FINDINGS Comparison:. 05/30/20. No significant elevation of systolic or diastolic velocities. Waveforms are normal. Mild calcified plaque and intimal thickening throughout the common carotid arteries and extending through the bifurcation. Antegrade vertebral arteries. CONCLUSIONS Bilateral ICA stenosis less than 50%. No interval change in stenosis since prior exam. Dr. Zaida Feliciano DO (Electronically Signed) Final Date: 21 February 2021 13:46 S
[2021-02-21] MEDS: FUROsemide 10 mg/mL SDV 4mL 40 MG IVP (10:56)
[2021-02-21] MEDS: perflutren protein-a microsphr 0.22 mg/mL SDV 3 mL IV (12:50)
[2021-02-21] MEDS: gabapentin 100 mg Capsule PO ×2 (13:27→17:43)
[2021-02-21] MEDS: heparin 5,000 unit/mL INJ 1 mL 5000 UNIT SUBCUT (13:27)
[2021-02-21] MEDS: ciprofloxacin 400 MG/200 ML PREMIX 200 MG IV ×2 (14:02)
[2021-02-21 17:11] LABS: Glucose Point of Care 168 mg/dL (70-110)
[2021-02-21] MEDS: insulin glargine 100 units/1 mL 20 UNIT SUBCUT (21:32)
[2021-02-22] VITALS: BP 107/65; PULSE 73; RESP 17; TEMP 36.8; O2SAT 94
[2021-02-22] MEDS: heparin 5,000 unit/mL INJ 1 mL 5000 UNIT SUBCUT (02:01)
[2021-02-22] MEDS: ciprofloxacin 400 MG/200 ML PREMIX 200 MG IV (02:02)
[2021-02-22 03:27] VITALS: BP 130/60; PULSE 70; RESP 16; TEMP 36.7; O2SAT 93
[2021-02-22] MEDS: aspirin 325 mg EC Tablet PO (05:51)
[2021-02-22] MEDS: gabapentin 100 mg Capsule PO (05:51)
[2021-02-22 06:00] VITALS: PULSE 74
[2021-02-22 06:41] LABS: Glucose Point of Care 161 mg/dL (70-110)
[2021-02-22 06:50] LABS: Alanine Aminotransferase 9 U/L (0-41); Albumin Level 3.3 g/dL (3.5-5.2); Alkaline Phosphatase 51 IU/L (40-130); Anion Gap 13.1 (5-19); Aspartate Amino Transferase 14 U/L (0-40); Blood Urea Nitrogen 23 mg/dL (8-23); Calcium 8.3 mg/dL (8.5-10.5); Carbon Dioxide 27 mmol/L (22-29); Chloride 100 mmol/L (98-107); Globulin 2.8 g/dL (1.3-4.6); Glucose 140 mg/dL (65-115); Osmolality Calculated 288 mOsm/kg (285-295); Potassium 4.1 mmol/L (3.5-5.1); Sodium 136 mmol/L (136-145); Thyroid Stimulating Hormone 0.41 uIU/mL (0.27-4.20); Total Bilirubin 0.8 mg/dL (0.15-1.2); Total Protein 6.1 g/dL (6.6-8.7)
--- NOTE | 2021-02-22 07:34 | PM.PN ---
Subjective Subjective: Interval history: Urology follow-up Afebrile overnight. T-max was 99.1. Has not passed the stones. Has had fairly minimal pain. No sense of fever or chills. Very worried about his who has Alzheimer's and is at home by herself. Objectively: white count is still pending Creatinine decreased from 2.1-1.7. Still above baseline but improved. No evidence of progressive clinical symptoms of infection. No evidence of stroke on CT scan yesterday. Urine culture preliminary at 24 hours no growth. From a urologic perspective I think it is reasonable to consider outpatient management. This would include a follow-up early next week with a BMP CBC and KUB with the caveat of reevaluation sooner for increasing infectious symptoms. I think with oral pain medication at home he can probably manage the renal colicky component. Would continue oral antibiotics at discharge as well. Will wait for hospitalist service input on candidacy for outpatient management of other medical problems. Vitals/I&O/Wt Last Vital Signs Temp 98.0 F 02/22/21 03:27 Pulse 74 02/22/21 06:00 Resp 16 02/22/21 03:27 BP 130/60 02/22/21 03:27 Pulse Ox 93 02/22/21 03:27 02/21/21 02/22/21 02/22/21 22:59 06:59 14:59 Intake Total 565 / 1865 320 / 2185 Output Total 400 / 1375 Balance 165 / 490 320 / 810 Weight last 48 hrs Weight 280 lb 9.6 oz Weight 265 lb Physical Exam Const: COMMON NORMALS: no acute distress, alert and well nourished GENERAL APPEARANCE: well kempt and well developed ORIENTATION/CONSCIOUSNESS: not confused Neck/C-Spine: COMMON NORMALS: full ROM Resp: COMMON NORMALS: normal respiratory effort EFFORT & INSPECTION: No labored and No Actively coughing Neuro: SENSORIUM/ORIENTATION: Yes alert Psych: COMMON NORMALS: mental status grossly normal APPEARANCE: Yes grossly normal and Yes well kempt ATTITUDE: Yes calm and Yes engaged Data : 02/21/21 04:58 02/22/21 05:25 Micro: Microbiology 02/20/21 10:02 Urine Culture - Preliminary Urine,Clean Catch A&P Assessment and plan (1) Right distal ureteral calculus: No stone passage yet. Improved pain. No progression of infectious symptoms. Pending white count today. Creatinine which had bumped up yesterday is better today at 1.7. If no evidence of worsening of infection picture I think he can be managed at home from a urology perspective. 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
[2021-02-22 07:40] VITALS: BP 121/72; PULSE 69; RESP 17; TEMP 36.8; O2SAT 97
[2021-02-22 07:50] VITALS: PULSE 69; RESP 17; O2SAT 96
[2021-02-22 08:29] LABS: Basophils # 0.1 10^3/uL (0.0-0.1); Basophils % 0.7 %; Eosinophils # 0.4 10^3/uL (0.0-0.8); Eosinophils % 4.9 %; Hematocrit 42.1 % (42.0-52.0); Hemoglobin 13.8 g/dL (11.7-16.6); Lymphocytes # 2.2 10^3/uL (0.8-4.8); Lymphocytes % 24.9 %; Mean Corpuscular HGB Conc 32.8 g/dL (30.0-36.0); Mean Corpuscular Hemoglobin 32.4 pg (28.0-34.0); Mean Corpuscular Volume 98.8 fl (80-94); Mean Platelet Volume 11.7 fL (7.4-10.4); Monocytes # 0.6 10^3/uL (0.2-0.9); Monocytes % 7.4 %; Neutrophils # 5.34 10^3/uL (1.8-7.7); Neutrophils % 61.8 %; Nucleated Red Blood Cells % 0 %; Platelet Count 128 10^3/cmm (130-400); Red Blood Count 4.26 10^6/uL (4.1-5.3); Red Cell Distribution Width 13.9 % (12.1-15.1); White Blood Count 8.6 10^3/uL (4.0-10.0)
[2021-02-22] MEDS: atorvastatin 40 mg Tablet 20 MG PO (08:33)
[2021-02-22] MEDS: metoprolol tartrate 50 mg Tablet 25 MG PO (08:34)
[2021-02-22] MEDS: tamsulosin 0.4 mg Capsule PO (08:34)
[2021-02-22] MEDS: isosorbide mononitrate 20 mg Tablet 10 MG PO (08:34)
[2021-02-22] MEDS: FUROsemide 20 mg Tablet PO (09:22)
--- NOTE | 2021-02-22 10:03 | P.DS_ITS ---
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 Complicating treatment of stones (4) False passage of urethra: Status: Acute Permanent problem details: Located in the posterior prostatic fossa making it difficult the passage of a wire or catheter anteriorly into the true lumen and into the bladder. Reason for Visit Reason for Visit: POSSIBLE KIDNEY STONE Hospital Course Hospital Course UROLOGY summary: Admitted with what appeared to be 2 distal right ureteral stones with obstructive changes. Creatinine was 1.6. Urine showed significant pyuria. No clinical evidence of infection though. He does self cath routinely for stricture patency maintenance. Symptoms well controlled with routine pain medication while hospitalized. White count slowly declined. No progression of infectious picture while inpatient. Creatinine increased to 2.1 on 02/21/2021 but was back down to 1.7 on 02/22/2021. Had not passed the stones at that point. Ambrose is a 75-year-old white who presented to the emergency department with right flank pain. Renal stone was noted in the right ureter with some hydronephrosis. Urine was equivocal for infection. He was admitted for pain control, IV antibiotics which consisted of Cipro secondary to penicillin allergy of anaphylaxis. He was hydrated. Renal function was watched closely secondary to acute kidney injury. His second day of hospitalization his creatinine was higher, therefore he was not discharged and close monitoring continued. The following day renal function was improving. Pain had improved. He had not yet passed the stone in the strainer that was given to him on admission. He was afebrile. White blood cell count was normal. It was thought he could be discharged home, with close follow-up with urology as well as his primary care provider. He will need to be seen in 3 to 5 days with a BMP. This was all discussed in detail with the patient. He did have some issues with balance during his hospital stay. CT head, carotid ultrasound, echocardiogram were all performed and not concerning. This may have been secondary to Neurontin dosing in face of renal failure. Dose was reduced, and patient symptoms resolved. Physical Exam Narrative: EXAM NARRATIVE: General exam no apparent distress Neck is supple Cardiovascular regular rate and rhythm without murmur Lungs clear Abdomen is soft Extremities no cyanosis clubbing or edema Neuro no focal deficits. Discharge Data Data Completed and Pending: Completed Studies During Hospitalization Category Date Time Status CT head wo con* 7 0450 Routine Cat Scan 02/21/21 10:[address] kidney stone 7 4176 Stat Cat Scan 02/20/21 09:37 Completed CV carotid duplex BI* [id number] Routine Ultrasound 02/21/21 10:23 Completed CV. echo wo/w con trast [id number] Routin e Ultrasound 02/21/21 10:23 Completed Pending at discharge Category Date Time Status Urine Culture Sta t Lab 02/20/21 10:02 Results Labs from last 24 hours 02/22/21 02/22/21 02/22/21 06:36 05:25 05:25 WBC 8.6 RBC 4.26 Hgb 13.8 Hct 42.1 MCV 98.8 H MCH 32.4 MCHC 32.8 D RDW 13.9 Plt Count 128 L MPV 11.7 H Neut % (Auto) 61.8 Lymph % (Auto) 24.9 [place] % (Auto) 7.4 Eos % (Auto) 4.9 Baso % (Auto) 0.7 Neut # (Auto) 5.34 Lymph # (Auto) 2.2 [place] # (Auto) 0.6 Eos # (Auto) 0.4 Baso # (Auto) 0.1 Nucleated RBC % (a uto) 0 Nucleated RBCs # 0.0 Sodium 136 Potassium 4.1 Chloride 100 Carbon Dioxide 27 Anion Gap 13.1 BUN 23 Creatinine 1.7 H GFR Calculation Not Reportable Glucose 140 H POC Glucose 161 H Calculated Osmolal ity 288 Calcium 8.3 L Total Bilirubin 0.8 AST 14 ALT 9 Alkaline Phosphata se 51 Total Protein 6.1 L Albumin 3.3 L Globulin 2.8 TSH 0.41 02/21/21 02/21/21 17:06 10:06 WBC RBC Hgb Hct MCV MCH MCHC RDW Plt Count MPV Neut % (Auto) Lymph % (Auto) [place] % (Auto) Eos % (Auto) Baso % (Auto) Neut # (Auto) Lymph # (Auto) [place] # (Auto) Eos # (Auto) Baso # (Auto) Nucleated RBC % (a uto) Nucleated RBCs # Sodium Potassium Chloride Carbon Dioxide Anion Gap BUN Creatinine GFR Calculation Glucose POC Glucose 168 H 158 H Calculated Osmolal ity Calcium Total Bilirubin AST ALT Alkaline Phosphata se Total Protein Albumin Globulin TSH Vitals: Last Vital Signs Temp 98.3 F 02/22/21 07:40 Pulse 69 02/22/21 07:50 Resp 17 02/22/21 07:50 BP 121/72 02/22/21 07:40 Pulse Ox 96 02/22/21 07:50 Discharge Plan Discharge Patient Disposition: Home Condition: Stable Prescriptions: New hydrocodone-acetaminophen 5-325 mg tablet 1 tab PO Q6H PRN (Reason: pain) Qty: 25 RF: 0 ciprofloxacin HCl [Cipro] 500 mg tablet 500 mg PO BID Qty: 14 RF: 0 gabapentin 100 mg Capsule 100 mg PO TID@,, Qty: 90 RF: 0 Continued tamsulosin [Flomax] 0.4 mg capsule 0.4 mg PO DAILY Qty: 14 RF: 0 albuterol sulfate 90 mcg/actuation Hfa Aerosol Inhaler 2 puff INHALATION Q6H PRN (Reason: Wheezing) RF: 0 budesonide-formoterol [Symbicort] 160-4.5 mcg/actuation Hfa Aerosol Inhaler 2 puff INHALATION BID PRN (Reason: Shortness Of Breath) RF: 0 glipizide 10 mg Tablet 10 mg PO BID@0600,1800 RF: 0 aspirin 81 mg Tablet,Delayed Release (Dr/Ec) 81 mg PO DAILY@0600 RF: 0 Lantus U-100 Insulin 100 unit/mL solution 50 unit SUBCUT DAILY@0600 RF: 0 alogliptin 25 mg tablet 25 mg PO DAILY@0600 MDD see pharmacy comment RF: 0 Hold Instructions: Resume on 07/19/19. metoprolol tartrate 25 mg tablet 50 mg PO BID@0600,1800 RF: 0 furosemide 40 mg tablet 20 mg PO DAILY@0600 RF: 0 Vitamin D3 50 mcg (2,000 unit) Capsule 50 mcg PO DAILY@0600 RF: 0 pravastatin 40 mg Tablet 40 mg PO DAILY RF: 0 Discontinued gabapentin 300 mg Capsule 300 mg PO TID@06,12,18 RF: 0 potassium chloride 20 mEq tablet extended release 20 meq PO BID@0600,1800 RF: 0 lisinopril 20 mg Tablet 10 mg PO DAILY RF: 0 Discharge Orders: Discharge Order (Routine); Ordered 02/22/21 Ordered By: Navdeep Harris Referrals: Jorge Iglesias MD [Physician] - 02/27/21 (BMP, CBC, KUB) Moriah Chaparro FNP [Primary Care Provider] - 4-7 days (BMP on follow-up) Discharge Diet: Usual diet Discharge Activity: Increase activity as tolerated Patient Instructions: Opioid Safety Activity Restrictions/Additional Instructions: Case management will call to make arrangements for follow-up with urology. If pain becomes uncontrollable return to the emergency room. Resume your home oxygen Discharge Attestations Time Spent in Discharge Care*: greater than 30 min Quality Metrics Clinical Quality Measures During this hospital stay, did patient experience: None Coding Level of Care Code Acute Chg FW DC note Diagnoses Right distal ureteral calculus N20.1 Uric acid urolithiasis N20.9 Urethral stricture, postoperative False passage of urethra N36.5
[2021-02-22 11:40] LABS: Glucose Point of Care 167 mg/dL (70-110)
--- NOTE | 2021-02-23 10:41 | PC.SOCIAL ---
discharge follow up call made. patient is still having a lot of pain. Just started taking Hydrocodone and hasn't taken any Gabapentin. patient instructed to start taking Gabapentin and Hydrocodone to see if that helps to control his pain. Follow up appointment made with [facility], patient reports that is his PCP. He will see Dr. Blevins 03-13-21 at 1430. He is aware of appointment and is aware of follow up appointment with Dr. cunningham.
== END 2021-02-22 12:00 | disposition home or self-care (01) ==
LOC: ER 10:14 → MEDSURG 14:10
PROVIDERS: Admitting Provider Internal Medicine; Emergency Provider Family Medicine; PCP Nurse Practitioner; Visit Provider Internal Medicine
DX: N20.2 Calculus of kidney with calculus of ureter (principal); N36.5 Urethral false passage; N13.30 Unspecified hydronephrosis; N17.9 Acute kidney failure, unspecified; N39.0 Urinary tract infection, site not specified; J44.9 Chronic obstructive pulmonary disease, unspecified; I65.23 Occlusion and stenosis of bilateral carotid arteries; I50.9 Heart failure, unspecified; E11.65 Type 2 diabetes mellitus with hyperglycemia; Z87.440 Personal history of urinary (tract) infections; I25.10 Atherosclerotic heart disease of native coronary artery without angina pectoris; G47.33 Obstructive sleep apnea (adult) (pediatric); E66.01 Morbid (severe) obesity due to excess calories; Z68.41 Body mass index [BMI] 40.0-44.9, adult; Z99.81 Dependence on supplemental oxygen; Z79.82 Long term (current) use of aspirin; Z79.4 Long term (current) use of insulin; E11.40 Type 2 diabetes mellitus with diabetic neuropathy, unspecified; Z95.5 Presence of coronary angioplasty implant and graft; Z82.49 Family history of ischemic heart disease and other diseases of the circulatory system
CPT/HCPCS: 36415; 36416; 70450; 74176; 80048; 80053; 81001; 82962; 84443; 85025; 87086; 87106; 93005; 93880; 96372; 96374; 96375; 96376; 97161; 99285; C8929; G0378; J0744; J1644; J1815 ×2; J1940; J2270; J2405; J7030; Q9956

== ENCOUNTER 2021-02-28 08:48 | Outpatient (CLI) | payer OTHER, SELFPAY ==
--- NOTE | 2021-02-28 09:03 | XR_ITS ---
WS: [id number] KUB, AP view, 02/28/2021 Clinical Data: kidney stone Comparison: KUB, 01/08/2021. Findings: No abnormal intraabdominal masses or calcifications are seen. There is no dilatated small bowel or ev idence of obstruction. Fecal material is present in the ascending and transverse colon. XR/XR KUB [id number] Impression: Negative KUB.
[2021-02-28 09:39] LABS: Basophils # 0.1 10^3/uL (0.0-0.1); Eosinophils # 0.7 10^3/uL (0.0-0.8); Eosinophils % 6.9 %; Hematocrit 47.2 % (42.0-52.0); Hemoglobin 15.6 g/dL (11.7-16.6); Lymphocytes # 2.7 10^3/uL (0.8-4.8); Lymphocytes % 26.5 %; Mean Corpuscular HGB Conc 33.1 g/dL (30.0-36.0); Mean Corpuscular Hemoglobin 31.8 pg (28.0-34.0); Mean Corpuscular Volume 96.1 fl (80-94); Mean Platelet Volume 10.7 fL (7.4-10.4); Monocytes # 0.5 10^3/uL (0.2-0.9); Monocytes % 5.4 %; Neutrophils # 5.97 10^3/uL (1.8-7.7); Neutrophils % 59.6 %; Nucleated Red Blood Cells % 0 %; Platelet Count 190 10^3/cmm (130-400); Red Blood Count 4.91 10^6/uL (4.1-5.3); Red Cell Distribution Width 13.9 % (12.1-15.1)
[2021-02-28 10:13] LABS: Alanine Aminotransferase 14 U/L (0-41); Albumin Level 3.8 g/dL (3.5-5.2); Alkaline Phosphatase 65 IU/L (40-130); Aspartate Amino Transferase 16 U/L (0-40); Blood Urea Nitrogen 11 mg/dL (8-23); Calcium 9.6 mg/dL (8.5-10.5); Carbon Dioxide 28 mmol/L (22-29); Chloride 101 mmol/L (98-107); Globulin 3.4 g/dL (1.3-4.6); Glucose 159 mg/dL (65-115); Osmolality Calculated 295 mOsm/kg (285-295); Sodium 141 mmol/L (136-145); Total Bilirubin 0.6 mg/dL (0.15-1.2); Total Protein 7.2 g/dL (6.6-8.7)
== END 2021-02-28 08:49 | disposition home or self-care (01) ==
PROVIDERS: PCP Family Medicine; Visit Provider Urology
DX: N20.1 Calculus of ureter (principal); N17.9 Acute kidney failure, unspecified; N39.0 Urinary tract infection, site not specified
CPT/HCPCS: 36415; 74018; 80053; 81003; 85025

== ENCOUNTER 2021-06-02 12:14 | Inpatient (IN) | payer OTHER, MEDICARE, SELFPAY ==
[2021-06-02] VITALS (11 sets, daily range): BP systolic 142–177; BP diastolic 68–99; PULSE 59–70; RESP 13–24; TEMP 36.6; O2SAT 94–98; BMI 41.5
--- NOTE | 2021-06-02 12:22 | W.ED.CHESTPA ---
HPI - Chest Pain General: Chief Complaint: ER Hold Stated Complaint: CHEST PAIN Time Seen by Provider: 06/02/21 12:18 History of Present Illness: HPI narrative: Mr Villa is a 75-year-old gentleman with significant past medical history of hypertension, hyperlipidemia, diabetes, obesity, COPD with chronic hypoxic respiratory failure on 4 L intermittently at baseline, diastolic heart failure who presents to the emergency department due to chest pain. He describes mostly being at his baseline health with perhaps increasing oxygen dependence and increased episodes of chest pain over the past number of months. Chest pain is typically pressure in his chest and mild to moderate intensity and improves with rest and supplemental oxygen. Today he had a more intense episode than normal. This started at rest. He describes pressure across his chest with radiation down the back of his left arm. Mild associated increased shortness of breath with this and it did not significantly improve with supplemental oxygen. He denies associated infectious symptoms. No other typical cardiac features of this chest pain. No other specific changes in health, exacerbating, or alleviating factors identified. EMS administered aspirin and nitroglycerin and nitroglycerin x1 helped with his chest pain. Patient did receive Covid vaccine and booster. Review of Systems General: Reports: 10 or more systems reviewed and unremarkable except in HPI and below PFSH ED PFSH: Medical History (Updated 06/05/21 @ 14:39 by Hansa Humphrey MD) Chronic kidney disease Congestive heart failure Moderate aortic stenosis last echocardiogram COPD (chronic obstructive pulmonary disease) Chronically on 3 L of oxygen COPD with hypoxia Coronary artery disease CABG x 4 in 2011, history of sternal nonunion. Diabetes type 2, uncontrolled High cholesterol History of kidney stones Hx of chest wall injury Moderate aortic stenosis by prior echocardiogram Neuropathy On home O2 Renal calculi Sleep apnea On CPAP Urethral stricture, postoperative Severe panurethral stricture disease requiring multiple dilations and endoscopic treatment. Complicating treatment of stones Uric acid urolithiasis Surgical History History of quadruple bypass Hx of lithotripsy Status post placement of ureteral stent Family History Mother , at age 76 COPD (chronic obstructive pulmonary disease) Father , at age 68-aortic aneurysm No problems noted. Social History Smoking and tobacco status: former smoker Alcohol intake: former Marital status: Current occupational status: retired History of recent travel: No Current gender identity: Male Physical Exam Narrative: EXAM NARRATIVE: GENERAL/CONSTITUTIONAL -mildly ill-appearing. No acute distress. Obese. Supplemental oxygen in place. Eyes - PERRL, no conjunctival injection ENMT - Atraumatic external nose and ears. Moist mucous membranes NECK - supple. trachea midline CARDIOVASCULAR - regular rate and rhythm. Normal peripheral perfusion. No peripheral edema. RESPIRATORY -diminished to auscultation bilaterally. ABDOMEN/GI - Nontender/Nondistended. MSK - Extremities without obvious deformity or tenderness to palpation SKIN - Warm, Dry NEURO - alert and appropriately oriented. Moves all extremities equally. Course ED course: - Patient was seen and evaluated by me at bedside - Patient placed on cardiac monitors, IV access obtained - Initial evaluation notable for exam as above - Labs notable for no leukocytosis. No significant metabolic abnormality to explain the patient's symptoms. Delta troponin is intermediate at 2 hours. - Imaging notable for no acute finding on chest x-ray - Upon serial reexamination after treatment the patient was mildly improved though still somewhat ill. I am concerned based on the patient's history that his angina has become unstable. As such he requires further inpatient management - Based on patient history, evaluation, labs, and imaging as interpreted the most likely cause of the patient's condition is chest pain concerning for unstable angina - The results of ED evaluation were discussed with the patient including plan for admission due to requirement for level of care not available if discharged to prevent significant worsening/deterioration. -Hospitalist service contacted and agreed admit the patient - Patient was admitted without further deterioration or significant events. Vital Signs: Vital signs: Vital Signs Temperature 97.8 F 06/04/21 15:26 Pulse Rate 78 06/06/21 14:00 Respiratory Rate 20 H 06/06/21 08:53 Blood Pressure 109/61 06/06/21 08:00 Pulse Oximetry 91 06/06/21 11:30 MDM - Chest Pain Medical Records: Attestation: I reviewed the patient's medical records. Lab Data: Attestation: I reviewed the patient's lab results. Labs: Lab Results 06/02/21 06/02/21 06/02/21 12:38 12:38 12:38 WBC 7.9 10^3/uL 10^3/ uL (4.0-10.0) RBC 4.83 10^6/uL 10^6 /uL (4.1-5.3) Hgb 15.5 g/dL g/dL (11.7-16.6) Hct 46.4 % % (42.0-52.0) MCV 96.1 fl H fl (80-94) MCH 32.1 pg pg (28.0-34.0) MCHC 33.4 g/dL g/dL (30.0-36.0) RDW 13.6 % % (12.1-15.1) Plt Count 166 10^3/cmm 10^3 /cmm (130-400) MPV 10.9 fL H fL (7.4-10.4) Neut % (Auto) 55.1 % % Lymph % (Auto) 31.9 % % [place] % (Auto) 5.6 % % Eos % (Auto) 6.1 % % Baso % (Auto) 0.9 % % Neut # (Auto) 4.35 10^3/uL 10^3 /uL (1.8-7.7) Lymph # (Auto) 2.5 10^3/uL 10^3/ uL (0.8-4.8) [place] # (Auto) 0.4 10^3/uL 10^3/ uL (0.2-0.9) Eos # (Auto) 0.5 10^3/uL 10^3/ uL (0.0-0.8) Baso # (Auto) 0.1 10^3/uL 10^3/ uL (0.0-0.1) Nucleated RBC % (a uto) 0 % % Nucleated RBCs # 0.0 /100WBC /100W BC D-Dimer Sodium 136 mmol/L mmol/L (136-145) Potassium 4.6 mmol/L mmol/L (3.5-5.1) Chloride 96 mmol/L L mmol/ L (98-107) Carbon Dioxide 28 mmol/L mmol/L (22-29) Anion Gap 16.6 (5-19) BUN 15 mg/dL mg/dL (8-23) Creatinine 1.3 mg/dL H mg/dL (0.7-1.2) GFR Calculation Not Reportable Glucose 409 mg/dL H mg/dL (65-115) POC Glucose Estimat Average Gl ucose Hemoglobin A1c Calculated Osmolal ity 300 mOsm/kg H mOs m/kg (285-295) Calcium 9.0 mg/dL mg/dL (8.5-10.5) Total Bilirubin 0.4 mg/dL mg/dL (0.15-1.2) AST 18 U/L U/L (0-40) ALT 13 U/L U/L (0-41) Alkaline Phosphata se 68 IU/L IU/L (40-130) Creatine Kinase Troponin T Baselin e 33 ng/L H ng/L (0-15) Troponin T 120 Min [place] Troponin T Troponin T Hi Sens 6Hr Troponin T Hi Sens 6Hr Delta NT-Pro-B Natriuret Pep 210 pg/mL H pg/mL (0-125) Total Protein 6.6 g/dL g/dL (6.6-8.7) Albumin 4.1 g/dL g/dL (3.5-5.2) Globulin 2.5 g/dL g/dL (1.3-4.6) Triglycerides Cholesterol LDL Cholesterol, C alc Total VLDL Cholest fabian HDL Cholesterol Cholesterol/HDL Ra sudheer Lipase 21 U/L U/L (13-60) Urine Color Urine Appearance Urine pH Ur Specific Gravit y Urine Protein Urine Glucose (UA) Urine Ketones Urine Blood Urine Nitrate Urine Bilirubin Urine Urobilinogen Ur Leukocyte Neida ase Urine RBC Urine WBC Ur Squamous Epith Cells Amorphous Sediment Urine Bacteria Urine Yeast 06/02/21 06/02/21 06/02/21 12:38 12:38 14:48 WBC RBC Hgb Hct MCV MCH MCHC RDW Plt Count MPV Neut % (Auto) Lymph % (Auto) [place] % (Auto) Eos % (Auto) Baso % (Auto) Neut # (Auto) Lymph # (Auto) [place] # (Auto) Eos # (Auto) Baso # (Auto) Nucleated RBC % (a uto) Nucleated RBCs # D-Dimer 0.84 ug/mIFEU H u g/mIFEU (0-0.59) Sodium Potassium Chloride Carbon Dioxide Anion Gap BUN Creatinine GFR Calculation Glucose POC Glucose Estimat Average Gl ucose Hemoglobin A1c Calculated Osmolal ity Calcium Total Bilirubin AST ALT Alkaline Phosphata se Creatine Kinase 153 U/L U/L (39-308) Troponin T Baselin e Troponin T 120 Min [place] 39.03 ng/L H ng/L (0-15) Delta Troponin T 6.03 ABS# ABS# (0-10) Troponin T Hi Sens 6Hr Troponin T Hi Sens 6Hr Delta NT-Pro-B Natriuret Pep Total Protein Albumin Globulin Triglycerides Cholesterol LDL Cholesterol, C alc Total VLDL Cholest fabian HDL Cholesterol Cholesterol/HDL Ra sudheer Lipase Urine Color Urine Appearance Urine pH Ur Specific Gravit y Urine Protein Urine Glucose (UA) Urine Ketones Urine Blood Urine Nitrate Urine Bilirubin Urine Urobilinogen Ur Leukocyte Neida ase Urine RBC Urine WBC Ur Squamous Epith Cells Amorphous Sediment Urine Bacteria Urine Yeast 06/02/21 06/02/21 06/02/21 18:22 20:24 22:14 WBC RBC Hgb Hct MCV MCH MCHC RDW Plt Count MPV Neut % (Auto) Lymph % (Auto) [place] % (Auto) Eos % (Auto) Baso % (Auto) Neut # (Auto) Lymph # (Auto) [place] # (Auto) Eos # (Auto) Baso # (Auto) Nucleated RBC % (a uto) Nucleated RBCs # D-Dimer Sodium Potassium Chloride Carbon Dioxide Anion Gap BUN Creatinine GFR Calculation Glucose POC Glucose 98 mg/dL mg/dL (70-110) Estimat Average Gl ucose Hemoglobin A1c Calculated Osmolal ity Calcium Total Bilirubin AST ALT Alkaline Phosphata se Creatine Kinase Troponin T Baselin e Troponin T 120 Min [place] Troponin T Troponin T Hi Sens 6Hr 33.32 ng/L H ng/L (0-15) Troponin T Hi Sens 6Hr Delta 0.32 ng/L ng/L (0-12) NT-Pro-B Natriuret Pep Total Protein Albumin Globulin Triglycerides Cholesterol LDL Cholesterol, C alc Total VLDL Cholest fabian HDL Cholesterol Cholesterol/HDL Ra sudheer Lipase Urine Color Minnie (Yellow) Urine Appearance Hazy A (CLEAR) Urine pH 5 (5-7) Ur Specific Gravit y 1.020 (1.005-1.030) Urine Protein Trace (Negative) Urine Glucose (UA) 4+ H (Normal) Urine Ketones Negative (Negative) Urine Blood 3+ H (Negative) Urine Nitrate Negative (Negative) Urine Bilirubin Neg (Negative) Urine Urobilinogen Norm mg/dL mg/dL (Negative) Ur Leukocyte Neida ase 1+ H (Negative) Urine RBC >100 /hpf H /hpf (0-2) Urine WBC 5-10 /hpf H /hpf (0-5) Ur Squamous Epith Cells 0-4 /hpf H /hpf (0-5) Amorphous Sediment Not Reportable Urine Bacteria Trace /hpf /hpf (NONE) Urine Yeast 1+ /hpf H /hpf 06/03/21 06/03/21 06/03/21 01:30 04:45 04:45 WBC 10.6 10^3/uL H 10 ^3/uL (4.0-10.0) RBC 4.79 10^6/uL 10^6 /uL (4.1-5.3) Hgb 15.5 g/dL g/dL (11.7-16.6) Hct 46.5 % % (42.0-52.0) MCV 97.1 fl H fl (80-94) MCH 32.4 pg pg (28.0-34.0) MCHC 33.3 g/dL g/dL (30.0-36.0) RDW 13.7 % % (12.1-15.1) Plt Count 188 10^3/cmm 10^3 /cmm (130-400) MPV 10.5 fL H fL (7.4-10.4) Neut % (Auto) 55.9 % % Lymph % (Auto) 31.9 % % [place] % (Auto) 5.0 % % Eos % (Auto) 6.0 % % Baso % (Auto) 0.9 % % Neut # (Auto) 5.91 10^3/uL 10^3 /uL (1.8-7.7) Lymph # (Auto) 3.4 10^3/uL 10^3/ uL (0.8-4.8) [place] # (Auto) 0.5 10^3/uL 10^3/ uL (0.2-0.9) Eos # (Auto) 0.6 10^3/uL 10^3/ uL (0.0-0.8) Baso # (Auto) 0.1 10^3/uL 10^3/ uL (0.0-0.1) Nucleated RBC % (a uto) 0 % % Nucleated RBCs # 0.0 /100WBC /100W BC D-Dimer Sodium 140 mmol/L mmol/L (136-145) Potassium 4.4 mmol/L mmol/L (3.5-5.1) Chloride 102 mmol/L mmol/L (98-107) Carbon Dioxide 25 mmol/L mmol/L (22-29) Anion Gap 17.4 (5-19) BUN 16 mg/dL mg/dL (8-23) Creatinine 1.0 mg/dL mg/dL (0.7-1.2) GFR Calculation Not Reportable Glucose 93 mg/dL mg/dL (65-115) POC Glucose 87 mg/dL mg/dL (70-110) Estimat Average Gl ucose Hemoglobin A1c Calculated Osmolal ity 291 mOsm/kg mOsm/ kg (285-295) Calcium 8.7 mg/dL mg/dL (8.5-10.5) Total Bilirubin AST ALT Alkaline Phosphata se Creatine Kinase Troponin T Baselin e Troponin T 120 Min [place] Troponin T Troponin T Hi Sens 6Hr Troponin T Hi Sens 6Hr [place] NT-Pro-B Natriuret Pep Total Protein Albumin Globulin Triglycerides Cholesterol LDL Cholesterol, C alc Total VLDL Cholest fabian HDL Cholesterol Cholesterol/HDL Ra sudheer Lipase Urine Color Urine Appearance Urine pH Ur Specific Gravit y Urine Protein Urine Glucose (UA) Urine Ketones Urine Blood Urine Nitrate Urine Bilirubin Urine Urobilinogen Ur Leukocyte Neida ase Urine RBC Urine WBC Ur Squamous Epith Cells Amorphous Sediment Urine Bacteria Urine Yeast 06/03/21 06/03/21 06/03/21 06:03 11:11 16:52 WBC RBC Hgb Hct MCV MCH MCHC RDW Plt Count MPV Neut % (Auto) Lymph % (Auto) [place] % (Auto) Eos % (Auto) Baso % (Auto) Neut # (Auto) Lymph # (Auto) [place] # (Auto) Eos # (Auto) Baso # (Auto) Nucleated RBC % (a uto) Nucleated RBCs # D-Dimer Sodium Potassium Chloride Carbon Dioxide Anion Gap BUN Creatinine GFR Calculation Glucose POC Glucose 97 mg/dL mg/dL 118 mg/dL H mg/dL 142 mg/dL H mg/dL (70-110) (70-110) (70-110) Estimat Average Gl ucose Hemoglobin A1c Calculated Osmolal ity Calcium Total Bilirubin AST ALT Alkaline Phosphata se Creatine Kinase Troponin T Baselin e Troponin T 120 Min [place] Troponin T Troponin T Hi Sens 6Hr Troponin T Hi Sens 6Hr Delta NT-Pro-B Natriuret Pep Total Protein Albumin Globulin Triglycerides Cholesterol LDL Cholesterol, C alc Total VLDL Cholest fabian HDL Cholesterol Cholesterol/HDL Ra sudheer Lipase Urine Color Urine Appearance Urine pH Ur Specific Gravit y Urine Protein Urine Glucose (UA) Urine Ketones Urine Blood Urine Nitrate Urine Bilirubin Urine Urobilinogen Ur Leukocyte Neida ase Urine RBC Urine WBC Ur Squamous Epith Cells Amorphous Sediment Urine Bacteria Urine Yeast 06/03/21 06/04/21 06/04/21 21:04 05:06 05:06 WBC 8.3 10^3/uL 10^3/ uL (4.0-10.0) RBC 4.83 10^6/uL 10^6 /uL (4.1-5.3) Hgb 15.6 g/dL g/dL (11.7-16.6) Hct 46.7 % % (42.0-52.0) MCV 96.7 fl H fl (80-94) MCH 32.3 pg pg (28.0-34.0) MCHC 33.4 g/dL g/dL (30.0-36.0) RDW 13.7 % % (12.1-15.1) Plt Count 168 10^3/cmm 10^3 /cmm (130-400) MPV 10.9 fL H fL (7.4-10.4) Neut % (Auto) 50.3 % % Lymph % (Auto) 36.7 % % [place] % (Auto) 5.7 % % Eos % (Auto) 6.2 % % Baso % (Auto) 0.7 % % Neut # (Auto) 4.15 10^3/uL 10^3 /uL (1.8-7.7) Lymph # (Auto) 3.0 10^3/uL 10^3/ uL (0.8-4.8) [place] # (Auto) 0.5 10^3/uL 10^3/ uL (0.2-0.9) Eos # (Auto) 0.5 10^3/uL 10^3/ uL (0.0-0.8) Baso # (Auto) 0.1 10^3/uL 10^3/ uL (0.0-0.1) Nucleated RBC % (a uto) 0 % % Nucleated RBCs # 0.0 /100WBC /100W BC D-Dimer Sodium 136 mmol/L mmol/L (136-145) Potassium 4.1 mmol/L mmol/L (3.5-5.1) Chloride 98 mmol/L mmol/L (98-107) Carbon Dioxide 29 mmol/L mmol/L (22-29) Anion Gap 13.1 (5-19) BUN 20 mg/dL mg/dL (8-23) Creatinine 1.2 mg/dL mg/dL (0.7-1.2) GFR Calculation Not Reportable Glucose 175 mg/dL H mg/dL (65-115) POC Glucose 213 mg/dL H mg/dL (70-110) Estimat Average Gl ucose Hemoglobin A1c Calculated Osmolal ity 289 mOsm/kg mOsm/ kg (285-295) Calcium 9.0 mg/dL mg/dL (8.5-10.5) Total Bilirubin AST ALT Alkaline Phosphata se Creatine Kinase Troponin T Baselin e Troponin T 120 Min [place] Troponin T Troponin T Hi Sens 6Hr Troponin T Hi Sens 6Hr Delta NT-Pro-B Natriuret Pep Total Protein Albumin Globulin Triglycerides Cholesterol LDL Cholesterol, C alc Total VLDL Cholest fabian HDL Cholesterol Cholesterol/HDL Ra sudheer Lipase Urine Color Urine Appearance Urine pH Ur Specific Gravit y Urine Protein Urine Glucose (UA) Urine Ketones Urine Blood Urine Nitrate Urine Bilirubin Urine Urobilinogen Ur Leukocyte Neida ase Urine RBC Urine WBC Ur Squamous Epith Cells Amorphous Sediment Urine Bacteria Urine Yeast 06/04/21 06/04/21 06/04/21 05:06 05:06 05:29 WBC RBC Hgb Hct MCV MCH MCHC RDW Plt Count MPV Neut % (Auto) Lymph % (Auto) [place] % (Auto) Eos % (Auto) Baso % (Auto) Neut # (Auto) Lymph # (Auto) [place] # (Auto) Eos # (Auto) Baso # (Auto) Nucleated RBC % (a uto) Nucleated RBCs # D-Dimer Sodium Potassium Chloride Carbon Dioxide Anion Gap BUN Creatinine GFR Calculation Glucose POC Glucose 178 mg/dL H mg/dL (70-110) Estimat Average Gl ucose 197 Hemoglobin A1c 8.5 % H % (4.0-6.0) Calculated Osmolal ity Calcium Total Bilirubin AST ALT Alkaline Phosphata se Creatine Kinase Troponin T Baselin e Troponin T 120 Min [place] Troponin T Troponin T Hi Sens 6Hr Troponin T Hi Sens 6Hr Delta NT-Pro-B Natriuret Pep Total Protein Albumin Globulin Triglycerides 236 mg/dL H mg/dL (0-150) Cholesterol 226 mg/dL H mg/dL (0-200) LDL Cholesterol, C alc 149 mg/dL H mg/dL (50-129) Total VLDL Cholest fabian 47 mg/dL H mg/dL (0-30) HDL Cholesterol 30 mg/dL L mg/dL (60-100) Cholesterol/HDL Ra sudheer 7.53 mg/dL H mg/d L (1.0-5.00) Lipase Urine Color Urine Appearance Urine pH Ur Specific Gravit y Urine Protein Urine Glucose (UA) Urine Ketones Urine Blood Urine Nitrate Urine Bilirubin Urine Urobilinogen Ur Leukocyte Neida ase Urine RBC Urine WBC Ur Squamous Epith Cells Amorphous Sediment Urine Bacteria Urine Yeast 06/04/21 06/04/21 11:18 16:54 WBC RBC Hgb Hct MCV MCH MCHC RDW Plt Count MPV Neut % (Auto) Lymph % (Auto) [place] % (Auto) Eos % (Auto) Baso % (Auto) Neut # (Auto) Lymph # (Auto) [place] # (Auto) Eos # (Auto) Baso # (Auto) Nucleated RBC % (a uto) Nucleated RBCs # D-Dimer Sodium Potassium Chloride Carbon Dioxide Anion Gap BUN Creatinine GFR Calculation Glucose POC Glucose 191 mg/dL H mg/dL 176 mg/dL H mg/dL (70-110) (70-110) Estimat Average Gl ucose Hemoglobin A1c Calculated Osmolal ity Calcium Total Bilirubin AST ALT Alkaline Phosphata se Creatine Kinase Troponin T Baselin e Troponin T 120 Min [place] Troponin T Troponin T Hi Sens 6Hr Troponin T Hi Sens 6Hr Delta NT-Pro-B Natriuret Pep Total Protein Albumin Globulin Triglycerides Cholesterol LDL Cholesterol, C alc Total VLDL Cholest fabian HDL Cholesterol Cholesterol/HDL Ra sudheer Lipase Urine Color Urine Appearance Urine pH Ur Specific Gravit y Urine Protein Urine Glucose (UA) Urine Ketones Urine Blood Urine Nitrate Urine Bilirubin Urine Urobilinogen Ur Leukocyte Neida ase Urine RBC Urine WBC Ur Squamous Epith Cells Amorphous Sediment Urine Bacteria Urine Yeast EKG Data^: EKG 1: Attestation: I personally reviewed and interpreted this EKG as follows: EKG interpretation date: 06/02/21 EKG interpretation time: 12:34 Interpretation: Twelve-lead EKG shows a regular rhythm at a rate of 66. UT interval 176, QRS duration 108, QTc 443. Left axis deviation. Interpretation: Sinus rhythm, nonspecific ST segment abnormalities. EKG 2: Attestation: I personally reviewed and interpreted this EKG as follows: EKG interpretation date: 06/02/21 EKG interpretation time: 14:44 Interpretation: Twelve-lead EKG shows a regular rhythm at a rate of 65. UT interval 185, QRS duration 107, QTc 443. Left axis deviation. Interpretation: Sinus rhythm, nonspecific ST segment abnormalities. EKG 3: Attestation: I personally reviewed and interpreted this EKG as follows: EKG interpretation date: 06/02/29 EKG interpretation time: 18:33 Interpretation: Twelve-lead EKG shows a regular rhythm at a rate of 60. UT interval 190, QRS duration 109, QTc 419 Left axis deviation. Interpretation: Sinus rhythm, nonspecific ST segment abnormalities. Discharge Plan Discharge Patient Disposition: Placed in Observation Admit Provider: Steve Barnes Clinical Impression: Unstable angina pectoris Coding Level of Care Code ED Certified Professional Midwife for Adelaida Hayes
--- NOTE | 2021-06-02 12:26 | ECG_ITS ---
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 Measurements Intervals [place] Rate: 66 P: 58 VT: 176 QRS: -81 QRSD: 108 T: 82 QT: 430 QTc: 451 Interpretive Statements SINUS RHYTHM LEFT ANTERIOR FASCICULAR BLOCK [QRS AXIS <= -45, QR IN I, RS IN II] POSSIBLE ANTERIOR MYOCARDIAL INFARCTION , PROBABLY OLD [30 ms Q WAVE IN V3/V4, OR R < 0.2 mV IN V4] Nonspecific ST -T changes INTERPRETATION BASED ON A DEFAULT AGE OF 40 YEARS Compared to ECG 02/21/2021 11:42:47 Left anterior fascicular block now present Left-axis deviation no longer present Myocardial infarct finding still present Electronically Signed On 06-02-2021 16:43:49 [employer] OPERATOR by Hansa Humphrey M.D. [id number]
--- NOTE | 2021-06-02 12:26 | XRR_ITS ---
PROCEDURE INFORMATION: Exam: XR Chest Exam date and time: 06/02/2021 12:26 PM Age: 75 years old Clinical indication: Pain; Chest pressure; Prior surgery; Additional info: Chest pain TECHNIQUE: Imaging protocol: XR of the chest. Views: 1 view. COMPARISON: CR XR chest 1V portable [id number] 09/20/2020 6:55 PM FINDINGS: Lungs: Unremarkable. No consolidation. Pulmonary vascularity is within normal limits. Mild basilar atelectasis versus fibrosis is unchanged. Pleural spaces: Unremarkable. No pleural effusion. No pneumothorax. Heart/Mediastinum: Unchanged cardiomegaly. Bones/joints: No acute abnormality. Unchanged postoperative left rib fractures and unchanged old right rib fractures.Sternotomy wires and mediastinal surgical clips are present, consistent with previous coronary arterial bypass grafting. Several broken sternal wires are noted. XR/XR chest 1V portable [id number] IMPRESSION: No acute findings.
[2021-06-02 12:54] LABS: Basophils # 0.1 10^3/uL (0.0-0.1); Basophils % 0.9 %; Eosinophils # 0.5 10^3/uL (0.0-0.8); Eosinophils % 6.1 %; Hematocrit 46.4 % (42.0-52.0); Hemoglobin 15.5 g/dL (11.7-16.6); Lymphocytes # 2.5 10^3/uL (0.8-4.8); Lymphocytes % 31.9 %; Mean Corpuscular HGB Conc 33.4 g/dL (30.0-36.0); Mean Corpuscular Hemoglobin 32.1 pg (28.0-34.0); Mean Corpuscular Volume 96.1 fl (80-94); Mean Platelet Volume 10.9 fL (7.4-10.4); Monocytes # 0.4 10^3/uL (0.2-0.9); Monocytes % 5.6 %; Neutrophils # 4.35 10^3/uL (1.8-7.7); Neutrophils % 55.1 %; Nucleated Red Blood Cells % 0 %; Platelet Count 166 10^3/cmm (130-400); Red Blood Count 4.83 10^6/uL (4.1-5.3); Red Cell Distribution Width 13.6 % (12.1-15.1); White Blood Count 7.9 10^3/uL (4.0-10.0)
[2021-06-02 13:14] LABS: Troponin(5th) Baseline 33 ng/L (0-15)
[2021-06-02 13:22] LABS: Alanine Aminotransferase 13 U/L (0-41); Albumin Level 4.1 g/dL (3.5-5.2); Alkaline Phosphatase 68 IU/L (40-130); Blood Urea Nitrogen 15 mg/dL (8-23); Carbon Dioxide 28 mmol/L (22-29); Chloride 96 mmol/L (98-107); Globulin 2.5 g/dL (1.3-4.6); Glucose 409 mg/dL (65-115); Lipase 21 U/L (13-60); NT Pro B Type Natriuretic Pept 210 pg/mL (0-125); Osmolality Calculated 300 mOsm/kg (285-295); Sodium 136 mmol/L (136-145); Total Bilirubin 0.4 mg/dL (0.15-1.2); Total Protein 6.6 g/dL (6.6-8.7)
[2021-06-02 13:25] LABS: Anion Gap 16.6 (5-19); Aspartate Amino Transferase 18 U/L (0-40); Potassium 4.6 mmol/L (3.5-5.1)
--- NOTE | 2021-06-02 14:26 | ECG_ITS ---
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 Measurements Intervals [place] Rate: 65 P: 60 NM: 185 QRS: -84 QRSD: 107 T: 79 QT: 421 QTc: 440 Interpretive Statements SINUS RHYTHM LEFT ANTERIOR FASCICULAR BLOCK [QRS AXIS <= -45, QR IN I, RS IN II] MINIMAL ST DEPRESSION [0.025+ mV ST DEPRESSION] Compared to ECG 06/02/2021 12:32:08 ST (T wave) deviation now present Myocardial infarct finding no longer present Electronically Signed On 06-02-2021 16:55:06 WORKFORCE DEVELOPMENT SPECIALIST by Hansa Humphrey M.D. [id number]
[2021-06-02 15:13] LABS: Troponin 5 2HR 39.03 ng/L (0-15); Troponin 5 2HR Delta 6.03 ABS# (0-10)
--- NOTE | 2021-06-02 17:04 | PM.HP ---
Providers/Chief Complaint Primary Care Provider: Radha Blevins MD Chief Complaint: CHEST PAIN History of Present Illness 75-year-old gentleman with history of CAD, CABG x4, history of sternal nonunion, DM 2 with peripheral neuropathy, HTN, COPD, on chronic 4 L of oxygen, ERUM on CPAP, although states last several weeks switched to nasal cannula, presents due to several weeks of worsening dyspnea exertion, to stage of severe where he gets very dyspneic even at very short distances, this morning also 1/2 hours of severe central pressure as well as pain radiating down the back of the left arm. He denies coughing more than usual. Denies coughing up blood. Denies orthopnea, although sleeps on his side. His symptoms were relieved by nitroglycerin. Denies worse pain with deep breath/inspiration. Denies worsening by movement of his torso or arms. He denies any symptoms of URI, no headache, no nausea vomiting or diarrhea. Review of Systems Const: Denies: fever(s), chills, body aches or malaise Eyes: Denies: change in vision or eye redness ENMT: Denies: throat pain, oral sores or ear or mastoid pain Card: Reports: chest pain and dyspnea on exertion; Denies: pre-syncope Resp: Denies: dyspnea, productive cough, change in phlegm color or hemoptysis GI: Denies: abdominal pain, nausea, vomiting, diarrhea, constipation, hematochezia or melena : Denies: flank pain, difficulty urinating, urinary frequency or hematuria Musc: Denies: back pain, joint swelling or joint redness Skin/Breast: Denies: rash, sores or new lesions Neuro: Denies: headache(s), numbness in extremities, weakness in extremities, dizziness, confusion or seizure-like activity Endo: Denies: polyuria or polydipsia Rafa/Lymph: Denies: easy bleeding or purpura All/Imm: Denies: urticaria, throat swelling or tongue swelling Medications/Allergies Home Medications Medication Instructions Recorded Confirmed Last Taken Type albuterol sulfate 2 puff INHALATION Q6H PRN 07/15/19 06/02/21 01/09/20 06:30 History aspirin 81 mg PO DAILY@0600 07/15/19 06/02/21 06/02/21 History budesonide-formoterol [Symbicort] 2 puff INHALATION BID PRN 07/15/19 06/02/21 01/09/20 06:30 History glipizide 10 mg PO BID@0600,1800 07/15/19 06/02/21 06/02/21 History insulin glargine 100 unit/mL 50 unit SUBCUT DAILY@0600 ml 07/19/19 06/02/21 06/02/21 History subcutaneous solution alogliptin 25 mg tablet 12.5 mg PO BID 12/29/19 06/02/21 06/02/21 History metoprolol tartrate 25 mg tablet 50 mg PO BID@0600,1800 tab 12/29/19 06/02/21 06/02/21 History furosemide 20 mg PO DAILY@0600 09/20/20 06/02/21 06/02/21 History tamsulosin [Flomax] 0.4 mg PO DAILY #14 cap 02/03/21 06/02/21 06/02/21 Rx cholecalciferol (vitamin D3) 50 mcg PO DAILY@0600 02/20/21 06/02/21 06/02/21 History [Vitamin D3] pravastatin 40 mg PO DAILY 02/20/21 06/02/21 06/01/21 History gabapentin 300 mg PO TID@06,,06/02/21 06/02/21 06/02/21 History hydrocodone-acetaminophen 1 tab PO Q4H PRN 06/02/21 06/02/21 Unknown History potassium chloride 40 meq PO DAILY 06/02/21 06/02/21 06/02/21 History Allergies Allergy/AdvReac Type Severity Reaction Status Date / Time Penicillins Allergy ALGY-Difficulty Verified 02/28/21 09:53 Breathing PFSH Acute PFSH: Medical History (Updated 06/02/21 @ 17:12 by Steve Barnes MD) Chronic kidney disease Congestive heart failure Moderate aortic stenosis last echocardiogram COPD (chronic obstructive pulmonary disease) Chronically on 3 L of oxygen COPD with hypoxia Coronary artery disease CABG x 4 in 2012, history of sternal nonunion. Diabetes type 2, uncontrolled High cholesterol History of kidney stones Hx of chest wall injury Moderate aortic stenosis by prior echocardiogram Neuropathy On home O2 Renal calculi Sleep apnea On CPAP Urethral stricture, postoperative Severe panurethral stricture disease requiring multiple dilations and endoscopic treatment. Complicating treatment of stones Uric acid urolithiasis Surgical History History of quadruple bypass Hx of lithotripsy Status post placement of ureteral stent Family History Mother , at age 76 COPD (chronic obstructive pulmonary disease) Father , at age 68-aortic aneurysm No problems noted. Social History Smoking and tobacco status: former smoker Alcohol intake: former Marital status: Current occupational status: retired History of recent travel: No Current gender identity: Male Vitals/I&O/Wt Last Vital Signs Temp 97.8 F 06/02/21 12:16 Pulse 64 06/02/21 15:56 Resp 16 06/02/21 15:56 BP 155/94 06/02/21 15:56 Pulse Ox 98 06/02/21 15:56 Weight last 48 hrs Weight 120.202 kg Physical Exam Narrative: EXAM NARRATIVE: Family with him in the room. Const: COMMON NORMALS: no acute distress, patient oriented x3 and alert GENERAL APPEARANCE: cooperative NUTRITIONAL APPEARANCE: obese ORIENTATION/CONSCIOUSNESS: Yes awake HENMT: COMMON NORMALS: oropharynx normal Neck/C-Spine: COMMON NORMALS: no JVD Resp: COMMON NORMALS: normal respiratory effort and clear to auscultation bilaterally AUSCULTATION: clear to auscultation bilaterally Cardio: COMMON NORMALS: no JVD, regular rhythm, S1 normal heart sound present, S2 normal heart sound present and No murmurs present (Cardio) RHYTHM: regular rhythm HEART SOUNDS: S1 normal heart sound present and S2 normal heart sound present GI: COMMON NORMALS: Normal to inspection, nondistended, normoactive bowel sounds present, Soft to palpation and non-tender PALPATION: Yes Soft to palpation Extremity: COMMON NORMALS: no joint enlargement GENERAL: Yes edema (1+) Neuro: COMMON NORMALS: patient oriented x3 and moves all extremities Skin: COMMON NORMALS: no rashes or lesions noted GENERAL SKIN EXAM: no rashes or lesions noted Data : 06/02/21 12:38 06/02/21 12:38 A&P Assessment and plan (1) Chest pain: Episode of chest pressure, central this morning, also pain radiating down the back of the left arm. Also several weeks of worsening dyspnea on exertion. No COPD exacerbation. Relieved by nitroglycerin. History of CAD. History of quadruple bypass. Coronary angiogram in December 2019: chronically occluded proximal LAD and chronically occluded RCA, ramus intermedius is small caliber and size vessel which was 90% stenotic in the proximal section.BOSWELL is atretic and not usedSVG to RCA was patentSVG to diagonal and LAD was patent. Complete troponin EKG series. Limited TTE. Monitor on telemetry. Appreciate cardiology consultation given known CAD history and presentation. We will check D-dimer. History of CABG with sternal nonunion. Status: Acute (2) Dyspnea on exertion: Not entirely clear etiology. Possible advancement of CAD. Work-up as above and appreciate cardiology assessment. He is chronically on 4 L oxygen for COPD, however, denies any worsening cough or sputum recently. On exam sounds were clear, I did not hear wheezing, rhonchi, or extremely diminished air entry. No symptoms of COVID-19 or other respiratory infection. Chest x-ray is unremarkable. We will check D-dimer. Does have lower extremity edema. BNP is not particularly high, but perhaps may be depressed in setting of obesity. Reports he also switch to nasal cannula nightly instead of his CPAP which she was using prior to that for ERUM. Discussed with him concern regarding negative pressure pulmonary edema developing at night without CPAP use and ERUM. Will provide CPAP nightly here. Discussed with him, can bring his own. Lasix 40 mg IV daily. Monitor I&O, renal function. Monitor for change in symptoms. Status: Acute (3) Chronic kidney disease: Creatinine currently appears close to baseline. Status: Acute (4) Sleep apnea: Continue CPAP Status: Acute Qualifiers: Sleep apnea type: unspecified type Qualified Code(s): G47.30 - Sleep apnea, unspecified (5) Coronary artery disease: Continue aspirin, beta-vee, statin. Status: Chronic Qualifiers: Coronary Disease-Associated Artery/Lesion type: bypass graft [place] vs. transplanted heart: [place] heart Associated angina: with unspecified angina Qualified Code(s): I25.709 - Atherosclerosis of coronary artery bypass graft(s), unspecified, with unspecified angina pectoris (6) COPD with hypoxia: Does not appear in exacerbation. Status: Acute (7) On home O2: Status: Acute Additional A&P Information DM2: Insulin HLD: Continue statin HTN: Continue metoprolol, monitor blood pressures BPH: Continue Flomax Attestations Medical Necessity Statement*: Place in observation for assessment of progressive dyspnea on exertion, episode of chest pain in a gentleman with underlying CAD Coding Level of Care Code Acute Rn Lactation for [facility] Fwd Diagnoses Chest pain R07.9 Dyspnea on exertion R06.00 Chronic kidney disease N18.9 Sleep apnea G47.30 Sleep apnea type: unspecified type Coronary artery disease I25.709 Coronary Disease-Associated Artery/Lesion type: bypass graft [place] vs. transplanted heart: [place] heart Associated angina: with unspecified angina COPD with hypoxia J44.9; R09.02 On home O2 Z99.81
--- NOTE | 2021-06-02 17:09 | PM.CONSULT ---
Providers/Reason For Consult Consulting Physician/Specialty*: JUAN Humphrey MD/cardiology Reason for Consult*: Chest pain/elevated troponin T/ASHD Requesting Physician: Dr. Barnes Primary Care Provider: Radha Blevins MD History of Present Illness History of Present Illness Ambrose Villa is a 75 year old male with a history of coronary disease, status post four-vessel coronary bypass surgery, is presenting with complaints of progressive shortness of breath and cough. He also is complaining of mid substernal chest tightness/heaviness. He was found to have elevated troponin T. Cardiology consult is requested for further cardiac evaluation recommendations. This patient is known to have severe three-vessel coronary disease and had four-vessel coronary bypass surgery approximately 7 years ago here at the [facility]. Patient had a nonhealing sternal wound following the surgery. He had some wound complications and finally ended up in having a surgery with some reinforcement of the sternal region. According to the patient, ever since this surgery, he has been having some amount of tight/heaviness in the chest. He also was having some amount of dyspnea exertion. Lately the shortness of breath is getting worse. Even with minimal activities, he gets short of breath. He has associated tight feeling in the lower substernal region which may radiate across the chest and at times to the left arm and shoulder. He has no associated nausea vomiting. No sweating, dizziness or syncopal episodes. No fever or chills. He has been having a cough which is mostly nonproductive. No other specific complaints. Patient has a history of sleep apnea and COPD. He is on home oxygen, 4 L/min by nasal cannula, uses intermittently. He also is known to have obstructive sleep apnea. He is on CPAP. He has a history of high blood pressure, type 2 diabetes and dyslipidemia. No history for any significant peripheral arterial disease. Has history of chronic kidney disease and is being followed by the control systems specialist. He has not required any hemodialysis so far. Review of Systems Narrative: CONSTITUTIONAL: No fever or chills. EYES: No blurring of vision or other visual disturbances lately. ENT: No hoarseness of voice, auditory disturbances or sore throat. CARDIOVASCULAR: As mentioned above. RESPIRATORY: As mentioned above GASTROINTESTINAL: No hematemesis or melena. GENITOURINARY: No dysuria or hematuria. INTEGUMENTARY: No skin rashes or history of skin cancer. NEURO: No transient ischemic attacks or amaurosis. PSYCHIATRIC: No history of psychosis or major depression. HEMATOLOGIC: No bleeding disorders or significant anemia. ENDOCRINE: No history of polyuria or polydipsia. MUSCULOSKELETAL: No recent joint pain or swelling. ALLERGY/IMMUNOLOGY: As mentioned above. Meds/Allergies Home Medications and Allergies Home Medications Medication Instructions Recorded Confirmed Last Taken Type albuterol sulfate 2 puff INHALATION Q6H PRN 07/15/19 06/02/21 01/09/20 06:30 History aspirin 81 mg PO DAILY@0600 07/15/19 06/02/21 06/02/21 History budesonide-formoterol [Symbicort] 2 puff INHALATION BID PRN 07/15/19 06/02/21 01/09/20 06:30 History glipizide 10 mg PO BID@0600,1800 07/15/19 06/02/21 06/02/21 History insulin glargine 100 unit/mL 50 unit SUBCUT DAILY@0600 ml 07/19/19 06/02/21 06/02/21 History subcutaneous solution alogliptin 25 mg tablet 12.5 mg PO BID 12/29/19 06/02/21 06/02/21 History metoprolol tartrate 25 mg tablet 50 mg PO BID@0600,1800 tab 12/29/19 06/02/21 06/02/21 History furosemide 20 mg PO DAILY@0600 09/20/20 06/02/21 06/02/21 History tamsulosin [Flomax] 0.4 mg PO DAILY #14 cap 02/03/21 06/02/21 06/02/21 Rx cholecalciferol (vitamin D3) 50 mcg PO DAILY@0600 02/20/21 06/02/21 06/02/21 History [Vitamin D3] pravastatin 40 mg PO DAILY 02/20/21 06/02/21 06/01/21 History gabapentin 300 mg PO TID@,,06/02/21 06/02/21 06/02/21 History hydrocodone-acetaminophen 1 tab PO Q4H PRN 06/02/21 06/02/21 Unknown History potassium chloride 40 meq PO DAILY 06/02/21 06/02/21 06/02/21 History Allergies Allergy/AdvReac Type Severity Reaction Status Date / Time Penicillins Allergy ALGY-Difficulty Verified 02/28/21 09:53 Breathing PFSH Acute PFSH: Medical History (Updated 06/04/21 @ 09:18 by Hansa Humphrey MD) Chronic kidney disease Congestive heart failure Moderate aortic stenosis last echocardiogram COPD (chronic obstructive pulmonary disease) Chronically on 3 L of oxygen COPD with hypoxia Coronary artery disease CABG x 4 in 2012, history of sternal nonunion. Diabetes type 2, uncontrolled High cholesterol History of kidney stones Hx of chest wall injury Moderate aortic stenosis by prior echocardiogram Neuropathy On home O2 Renal calculi Sleep apnea On CPAP Urethral stricture, postoperative Severe panurethral stricture disease requiring multiple dilations and endoscopic treatment. Complicating treatment of stones Uric acid urolithiasis Surgical History History of quadruple bypass Hx of lithotripsy Status post placement of ureteral stent Family History Mother , at age 76 COPD (chronic obstructive pulmonary disease) Father , at age 68-aortic aneurysm No problems noted. Social History Smoking and tobacco status: former smoker Alcohol intake: former Marital status: Current occupational status: retired History of recent travel: No Current gender identity: Male Vitals/I&O/Wt Last Vital Signs Temp 97.8 F 06/02/21 12:16 Pulse 64 06/02/21 15:56 Resp 16 06/02/21 15:56 BP 155/94 06/02/21 15:56 Pulse Ox 98 06/02/21 15:56 Weight last 48 hrs Weight 265 lb Physical Exam Narrative: EXAM NARRATIVE: GENERAL: The patient is alert and oriented times three. Not in any acute distress. HEENT: No significant pallor, icterus or lymphadenopathy. The pupils are symmetrical. Oral cavity: There are no mucous membrane lesions. Funduscopic examination: The fundus is not visualized NECK: Trachea appears to be central. No masses noted. No JVD or thyromegaly appreciated. No carotid bruit. RESPIRATORY: Chest is symmetrical. No intercostals muscle retraction or any accessory muscle activation. There is no chest wall tenderness. Breath sounds are heard bilaterally. Diagnosis of breath sounds are diminished in the bases. Occasional expiratory wheezing BREASTS: Deferred. HEART: The PMI is in the 5th left intercostals space just inside the midclavicular line. No palpable precordial events. S1 and S2 are normal. No S3 or S4 heard. No pericardial rub or any click heard. Short systolic murmur in the left sternal border. No diastolic murmurs ABDOMEN: No vessel pulsations or distention. No tenderness. No organomegaly appreciated. No abdominal bruit. Bowel sounds are normally heard. : Deferred. RECTAL: Deferred. LYMPHATIC: No lymphadenopathy noted in the neck or groin. EXTREMITIES: No edema or cyanosis. No clubbing. The pulses are symmetrical bilaterally. The radial, femoral, dorsalis pedis and the posterior tibial pulses are palpable but weak bilaterally MUSCULOSKELETAL: No acute joint deformities or swelling SKIN: There are no significant scars or skin rash noted. NEUROPSYCHIATRIC: The patient is alert and oriented x3. Appears to be in a good mood. The higher functions are grossly within normal limits. No tremors or rigidity noted. Data Labs: Other Labs: Laboratory Last Values WBC 7.9 10^3/uL (4.0- 10.0) 06/02/21 12:38 RBC 4.83 10^6/uL (4.1 -5.3) 06/02/21 12:38 Hgb 15.5 g/dL (11.7-1 6.6) 06/02/21 12:38 Hct 46.4 % (42.0-52.0 ) 06/02/21 12:38 MCV 96.1 fl (80-94) H 06/02/21 12:38 MCH 32.1 pg (28.0-34. 0) 06/02/21 12:38 MCHC 33.4 g/dL (30.0-3 6.0) 06/02/21 12:38 RDW 13.6 % (12.1-15.1 ) 06/02/21 12:38 Plt Count 166 10^3/cmm (130 -400) 06/02/21 12:38 MPV 10.9 fL (7.4-10.4 ) H 06/02/21 12:38 Neut % (Auto) 55.1 % 06/02/21 12:38 Lymph % (Auto) 31.9 % 06/02/21 12:38 Johnson % (Auto) 5.6 % 06/02/21 12:38 Eos % (Auto) 6.1 % 06/02/21 12:38 Baso % (Auto) 0.9 % 06/02/21 12:38 Neut # (Auto) 4.35 10^3/uL (1.8 -7.7) 06/02/21 12:38 Lymph # (Auto) 2.5 10^3/uL (0.8- 4.8) 06/02/21 12:38 Johnson # (Auto) 0.4 10^3/uL (0.2- 0.9) 06/02/21 12:38 Eos # (Auto) 0.5 10^3/uL (0.0- 0.8) 06/02/21 12:38 Baso # (Auto) 0.1 10^3/uL (0.0- 0.1) 06/02/21 12:38 Nucleated RBC % (a uto) 0 % 06/02/21 12:38 Nucleated RBCs # 0.0 /100WBC 06/02/21 12:38 Sodium 136 mmol/L (136-1 45) 06/02/21 12:38 Potassium 4.6 mmol/L (3.5-5 .1) 06/02/21 12:38 Chloride 96 mmol/L (98-107 ) L 06/02/21 12:38 Carbon Dioxide 28 mmol/L (22-29) 06/02/21 12:38 Anion Gap 16.6 (5-19) 06/02/21 12:38 BUN 15 mg/dL (8-23) 06/02/21 12:38 Creatinine 1.3 mg/dL (0.7-1. 2) H 06/02/21 12:38 GFR Calculation Not Reportable 06/02/21 12:38 Glucose 409 mg/dL (65-115 ) H 06/02/21 12:38 Calculated Osmolal ity 300 mOsm/kg (285- 295) H 06/02/21 12:38 Calcium 9.0 mg/dL (8.5-10 .5) 06/02/21 12:38 Total Bilirubin 0.4 mg/dL (0.15-1 .2) 06/02/21 12:38 AST 18 U/L (0-40) 06/02/21 12:38 ALT 13 U/L (0-41) 06/02/21 12:38 Alkaline Phosphata se 68 IU/L (40-130) 06/02/21 12:38 Troponin T Baselin e 33 ng/L (0-15) H 06/02/21 12:38 Troponin T 120 Min rose mary 39.03 ng/L (0-15) H 06/02/21 14:48 Delta Troponin T 6.03 ABS# (0-10) 06/02/21 14:48 NT-Pro-B Natriuret Pep 210 pg/mL (0-125) H 06/02/21 12:38 Total Protein 6.6 g/dL (6.6-8.7 ) 06/02/21 12:38 Albumin 4.1 g/dL (3.5-5.2 ) 06/02/21 12:38 Globulin 2.5 g/dL (1.3-4.6 ) 06/02/21 12:38 Lipase 21 U/L (13-60) 06/02/21 12:38 Imaging^: Echo: My impression: LV size with diminished ejection fraction of 48%. Moderate diffuse hypokinesia of the septum and anteroseptal segments. Right ventricle appears to be mildly dilated with normal ejection fraction. The aortic and mitral valves morphology appear to be in normal limits. There is no pericardial effusion. There are no intracardiac masses. Compared to the study from 02/21/2021, there seems to be a drop in the LV ejection fraction. But because of the difference in technical quality, the comparison is difficult(the previous study was at the echo contrast). A&P Assessment and plan (1) Dyspnea on exertion: Patient is shortness of breath, could be multifactorial. Morbid obesity, sleep apnea, COPD, LV dysfunction, coronary ischemia, etc. are considerations. Apparently there was no significant revascularizable lesions based on the angiogram last year. Possibility of worsening of the underlying coronary artery disease is a consideration. Echocardiogram revealed some wall motion normalities. There seems to be a drop in the LV ejection fraction from last time. For further evaluation of the patient's symptoms and the coronary status, a myocardial perfusion imaging would be appropriate. This was discussed with the patient in detail which he understood well and consented to proceed. We may go ahead and schedule this in the hospital as early as possible. Status: Acute (2) Elevated troponin: The elevated troponin T at the baseline is unexplained. Type I or type II MIs are possibilities Status: Acute (3) Atypical chest pain: According the patient, ever since the sternal surgery, he had this type of pain and shortness of breath. The only difference is it seems to be getting worse this time. It also is taking longer time to recover. After reviewing the myocardial perfusion imaging, further recommendations will be made. Status: Acute (4) Atherosclerotic heart disease of [place] coronary artery with other forms of angina pectoris: The most recent cardiac colorization from last year revealed no significant revascularizable lesions. Based on the angiogram findings, further recommendations will be made Status: Acute (5) COPD (chronic obstructive pulmonary disease): May continue on the current treatment. Status: Acute Qualifiers: COPD type: unspecified COPD Qualified Code(s): J44.9 - Chronic obstructive pulmonary disease, unspecified (6) Benign essential hypertension with target blood pressure below 140/90: Need to optimize antihypertensive medications Status: Acute (7) Dyslipidemia: Continue other medications. Follow-up evaluation as scheduled Status: Acute Additional A&P Information Based on the results of the above tests and also based significant problems, further recommendations will be made. Thank you for the opportunity to evaluate this patient make these recommendation Coding Level of Care Code Acute Industrial Arts Teacher for Adelaida Hayes History Detailed Exam Detailed Medical Decision Making High Complexity Diagnoses Dyspnea on exertion R06.00 Elevated troponin R77.8 Atypical chest pain R07.89 Atherosclerotic heart disease of [place] coronary artery with other forms of angina pectoris I25.118 COPD (chronic obstructive pulmonary disease) J44.9 COPD type: unspecified COPD Benign essential hypertension with target blood pressure below 140/90 I10 Dyslipidemia E78.5
[2021-06-02] MEDS: enoxaparin 120 mg/0.8 mL Syringe SUBCUT (18:39)
[2021-06-02 18:40] LABS: D Dimer 0.84 ug/mIFEU (0-0.59)
--- NOTE | 2021-06-02 18:40 | PC.NURSE ---
while at bedside pt is in nad. pt is awake alert and answering questions appropriately. pt denies any further needs.
[2021-06-02 18:43] LABS: Creatine Phosphokinase 153 U/L (39-308)
[2021-06-02 18:45] LABS: Troponin 5 6HR 33.32 ng/L (0-15); Troponin 5 6HR Delta 0.32 ng/L (0-12)
--- NOTE | 2021-06-02 19:42 | PC.NURSE ---
REPORT GIVEN TO [facility].
[2021-06-02 20:42] LABS: Add Urine Culture? Yes; Add Urine Microscopic? YES; Bacteria Urine TRACE /hpf; Bilirubin Urine Neg (Negative); Blood Urine 3+ (Negative); Glucose Urine UA 4+ (Normal); Ketones Urine Negative (Negative); Leukocyte Esterase Urine 1+ (Negative); Nitrate Urine Negative (Negative); Protein Urine Trace (Negative); RBC Urine >100 /hpf (0-2); Squamous Epithelial Cell Urine 0-4 /hpf (0-5); Urine Appearance Hazy (CLEAR); Urine Color Amber (Yellow); Urobilinogen Urine Norm (Negative); pH Urine 5 (5-7)
[2021-06-02] MEDS: FUROsemide 10 mg/mL SDV 4mL 40 MG IVP (22:16)
[2021-06-03] VITALS (12 sets, daily range): BP systolic 103–147; BP diastolic 55–77; PULSE 56–78; RESP 16–18; TEMP 36.1–36.9; O2SAT 90–95
[2021-06-03 01:37] LABS: Glucose Point of Care 87 mg/dL (70-110)
[2021-06-03] MEDS: metoprolol tartrate 25 mg Tablet 50 MG PO ×3 (01:40→17:58)
[2021-06-03] MEDS: gabapentin 100 mg Capsule 300 MG PO ×4 (01:41→17:57)
[2021-06-03 04:55] LABS: Basophils # 0.1 10^3/uL (0.0-0.1); Basophils % 0.9 %; Eosinophils # 0.6 10^3/uL (0.0-0.8); Hematocrit 46.5 % (42.0-52.0); Hemoglobin 15.5 g/dL (11.7-16.6); Lymphocytes # 3.4 10^3/uL (0.8-4.8); Lymphocytes % 31.9 %; Mean Corpuscular HGB Conc 33.3 g/dL (30.0-36.0); Mean Corpuscular Hemoglobin 32.4 pg (28.0-34.0); Mean Corpuscular Volume 97.1 fl (80-94); Mean Platelet Volume 10.5 fL (7.4-10.4); Monocytes # 0.5 10^3/uL (0.2-0.9); Neutrophils # 5.91 10^3/uL (1.8-7.7); Neutrophils % 55.9 %; Nucleated Red Blood Cells % 0 %; Platelet Count 188 10^3/cmm (130-400); Red Blood Count 4.79 10^6/uL (4.1-5.3); Red Cell Distribution Width 13.7 % (12.1-15.1); White Blood Count 10.6 10^3/uL (4.0-10.0)
[2021-06-03 05:10] LABS: Blood Urea Nitrogen 16 mg/dL (8-23); Calcium 8.7 mg/dL (8.5-10.5); Carbon Dioxide 25 mmol/L (22-29); Chloride 102 mmol/L (98-107); Glucose 93 mg/dL (65-115); Osmolality Calculated 291 mOsm/kg (285-295); Sodium 140 mmol/L (136-145)
[2021-06-03 05:41] LABS: Anion Gap 17.4 (5-19); Potassium 4.4 mmol/L (3.5-5.1)
[2021-06-03] MEDS: aspirin 81 mg EC Tablet PO (06:12)
[2021-06-03] MEDS: cholecalciferol (vitamin D3) 1,000 unit Tablet 2000 UNIT PO (06:13)
[2021-06-03] MEDS: insulin glargine 100 units/1 mL 50 UNIT SUBCUT (06:13)
[2021-06-03 06:19] LABS: Glucose Point of Care 97 mg/dL (70-110)
[2021-06-03] MEDS: atorvastatin 40 mg Tablet 20 MG PO (08:43)
[2021-06-03] MEDS: tamsulosin 0.4 mg Capsule PO (08:44)
--- NOTE | 2021-06-03 09:34 | CTR_ITS ---
PROCEDURE INFORMATION: Exam: CT Abdomen And Pelvis Without Contrast Exam date and time: 06/03/2021 9:34 AM Age: 75 years old Clinical indication: Other: Hematuria TECHNIQUE: Imaging protocol: Computed tomography of the abdomen and pelvis without contrast. Total images: 356 Radiation optimization: All CT scans at this facility use at least one of these dose optimization techniques: automated exposure control; mA and/or kV adjustment per patient size (includes targeted exams where dose is matched to clinical indication); or iterative reconstruction. COMPARISON: CT kidney stone [id number] 02/03/2021 6:06 AM RADIATION DOSE METRICS: Total DLP (mGy-cm): 1929.29 FINDINGS: Lungs: 4 mm nodule right middle lobe series 2, image 2. Bibasilar subpleural reticular opacities with associated traction bronchiectasis and bronchiolectasis. Liver: Normal. No mass. Gallbladder and bile ducts: Normal. No calcified stones. No ductal dilation. Pancreas: Normal. No ductal dilation. Spleen: Normal. No splenomegaly. Adrenal glands: Normal. No mass. Kidneys and ureters: 2.3 cm Right kidney cyst incompletely evaluated due to no IV contrast. This finding is stable when compared to the prior exam. No renal, ureteral, nor bladder calculi detected. Stomach and bowel: Colonic diverticulosis is present without diverticulitis. Appendix: No evidence of appendicitis. Intraperitoneal space: Unremarkable. No free air. No significant fluid collection. Vasculature: Moderate atherosclerotic disease is evident. Dilated infrarenal abdominal aorta measured at 2.7 cm. This finding is stable when compared to the prior exam. Lymph nodes: Unremarkable. No enlarged lymph nodes. Urinary bladder: See Kidneys and ureters finding. Reproductive: Prostatomegaly noted. Bones/joints: Spinal degenerative changes are evident. Old right rib fracture evident. SI joint shows degenerative changes with subchondral cyst and sclerosis. Soft tissues: Postsurgical changes noted to the left upper abdominal wall with irregular calcific nodules in the left epicardial fat unchanged from the prior exam and are most likely represent fat necrosis. Other findings: Stable postsurgical changes. CT/CT kidney stone [id number] IMPRESSION: 1. 4 mm nodule right middle lobe series 2, image 2. Consider followup twelve-month CT chest to further define. (Brennan et al., Fleischner Society, 2017) 2. Bibasilar subpleural reticular opacities with associated traction bronchiectasis and bronchiolectasis. This finding is stable when compared to the prior exam. 3. 2.3 cm Right kidney cyst incompletely evaluated due to no IV contrast. This finding is stable when compared to the prior exam. 4. No renal, ureteral, nor bladder calculi detected. 5. No acute intra-abdominal pathology. 6. Dilated infrarenal abdominal aorta measured at 2.7 cm. This finding is stable when compared to the prior exam. Follow-up imaging in 5 years is recommended. 7. Colonic diverticulosis is present without diverticulitis. 8. Postsurgical changes noted to the left upper abdominal wall with irregular calcific nodules in the left epicardial fat unchanged from the prior exam and are most likely postsurgical represent fat necrosis.
[2021-06-03 11:29] LABS: Glucose Point of Care 118 mg/dL (70-110)
--- NOTE | 2021-06-03 12:21 | PC.CHAP ---
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 [] Patient/Family/Request visit [] Outpatient visit [] Follow-up visit [] Physician referral [] Code/Alert [XX] Routine visit [] Staff referral [] Actively dying [] Patient sleeping [] Family support [] [] Out of room [] Palliative care [] [] Receiving care in room [] Pre-surgical visit [] Trauma [] Long length of stay [] ICU visit [XX] Other: isolation Relational/Emotional Strength [] Patient feels connected with others/family/visitors/staff [] Distress [] Loneliness/isolation [] Abandonment Spirituality of Patient [] Person of Molly [] Attends Latter Day of their Molly [] Believes in Prayer [] Reads Bible or Latter-Day materials [] There are Spiritual issues to be addressed Tobacco Educator Interventions [] Prayer [] Active listening [] Non-anxious presence [] Spiritual/emotional support [] Crisis/trauma care [] Spiritual counseling [] Bereavement support [] Provided bereavement packet [] Provided Bible/devotional materials [] Provided toy/stuffed animal, coloring book to patient or family member [] Provided Communion [] Anointing/[place] [] Salvation [] Completed spiritual assessment [] Other: Impact on Illness or Injury [] Angry [] Fearful [] Anxious [] Often cries [] Exhaustion [] Unable to work [] Unable to attend gnosticist [] Unable to walk/stand [] Unable to read [] Unable to drive [] Unable to eat/drink [] Unable to sleep [] Unable to be with family [] Patient intubated [] Other: Summary Time spent with patient
--- NOTE | 2021-06-03 14:44 | PM.PN ---
Subjective Subjective: Interval history: No chest pain or pressure currently. Earlier when urinating was having painless hematuria and passed a blood clot. Vitals/I&O/Wt Last Vital Signs Temp 97.9 F 06/03/21 11:45 Pulse 62 06/03/21 11:45 Resp 16 06/03/21 11:45 BP 133/69 06/03/21 11:45 Pulse Ox 90 06/03/21 11:45 06/02/21 06/03/21 06/03/21 22:59 06:59 14:59 Intake Total 600 / 600 Output Total 200 / 200 125 / 125 Balance -200 / -200 475 / 475 Weight last 48 hrs Weight 127.142 kg Weight 120.202 kg Weight 120.202 kg Physical Exam Const: COMMON NORMALS: no acute distress, patient oriented x3 and alert GENERAL APPEARANCE: cooperative NUTRITIONAL APPEARANCE: obese ORIENTATION/CONSCIOUSNESS: Yes awake HENMT: COMMON NORMALS: oropharynx normal Neck/C-Spine: COMMON NORMALS: no JVD Resp: COMMON NORMALS: normal respiratory effort and clear to auscultation bilaterally AUSCULTATION: clear to auscultation bilaterally Cardio: COMMON NORMALS: no JVD, regular rhythm, S1 normal heart sound present, S2 normal heart sound present and No murmurs present (Cardio) RHYTHM: regular rhythm HEART SOUNDS: S1 normal heart sound present and S2 normal heart sound present GI: COMMON NORMALS: Normal to inspection, nondistended, normoactive bowel sounds present, Soft to palpation and non-tender PALPATION: Yes Soft to palpation Extremity: COMMON NORMALS: no joint enlargement GENERAL: Yes edema (1+) Neuro: COMMON NORMALS: patient oriented x3 and moves all extremities SENSORIUM/ORIENTATION: Yes alert Skin: COMMON NORMALS: no rashes or lesions noted GENERAL SKIN EXAM: no rashes or lesions noted Data : 06/03/21 04:45 06/03/21 04:45 A&P Assessment and plan (1) Chest pain: No chest pain today. Episode of hematuria. Prophylactic Lovenox had to be stopped. Requested stress test. Discussed with him no caffeine today. N.p.o. after midnight. Follow-up TTE. Episode of chest pressure, central this morning, also pain radiating down the back of the left arm. Also several weeks of worsening dyspnea on exertion. No COPD exacerbation. Relieved by nitroglycerin. History of CAD. History of quadruple bypass. Coronary angiogram in December 2019: chronically occluded proximal LAD and chronically occluded RCA, ramus intermedius is small caliber and size vessel which was 90% stenotic in the proximal section.BOSWELL is atretic and not usedSVG to RCA was patentSVG to diagonal and LAD was patent. Appreciate cardiology consultation given known CAD history and presentation. History of CABG with sternal nonunion. Status: Acute (2) Dyspnea on exertion: Not entirely clear etiology. Possible advancement of CAD. Work-up as above and appreciate cardiology assessment. He is chronically on 4 L oxygen for COPD, however, denies any worsening cough or sputum recently. On exam sounds were clear, I did not hear wheezing, rhonchi, or extremely diminished air entry. No symptoms of COVID-19 or other respiratory infection. Chest x-ray is unremarkable. Minimal abnormality of D-dimer, 0.84. No unilateral leg edema. No cough, shortness of breath, on baseline oxygen. I believe probability of PE is low. At this time obtaining VQ scan may not be helpful given underlying COPD, and would interfere also with assessment by stress test. He is concerned regarding his renal function with consideration of CTA. Currently also not a candidate for anticoagulation given hematuria. Follow-up TTE. Monitor for any change in symptoms. Does have lower extremity edema. BNP is not particularly high, but perhaps may be depressed in setting of obesity. Reports he also switch to nasal cannula nightly instead of his CPAP which she was using prior to that for ERUM. Discussed with him concern regarding negative pressure pulmonary edema developing at night without CPAP use and ERUM. Requested RT service for CPAP nightly here. Discussed with him, can bring his own. Lasix 40 mg IV daily. Monitor I&O, renal function. Monitor for change in symptoms. Discussed with him need to follow-up with pulmonology given recent progressive COPD, on chronic 4 L oxygen. Status: Acute (3) Chronic kidney disease: Creatinine currently appears close to baseline. Status: Acute (4) Sleep apnea: Should resume and continue CPAP Status: Acute Qualifiers: Sleep apnea type: unspecified type Qualified Code(s): G47.30 - Sleep apnea, unspecified (5) Coronary artery disease: Continue aspirin, beta-vee, statin. Status: Chronic Qualifiers: Coronary Disease-Associated Artery/Lesion type: bypass graft [place] vs. transplanted heart: [place] heart Associated angina: with unspecified angina Qualified Code(s): I25.709 - Atherosclerosis of coronary artery bypass graft(s), unspecified, with unspecified angina pectoris (6) COPD with hypoxia: Does not appear in exacerbation. Status: Acute (7) On home O2: Status: Acute Additional A&P Information DM2: Insulin HLD: Continue statin HTN: Continue metoprolol, monitor blood pressures BPH: Continue Flomax Attestations Medical Necessity Statement*: Continue hospitalization for additional assessment with stress testing for cardiovascular risk ratification in a gentleman presenting after episode of chest pain, recently with progressive dyspnea on exertion, with underlying coronary artery disease. 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 transplanted heart: [place] heart Associated angina: with unspecified angina COPD with hypoxia J44.9; R09.02 On home O2 Z99.81
--- NOTE | 2021-06-03 14:49 | PC.RESP ---
pt refused cpap at this time, pt stated that he did not need cpap and would request one if he wants one
[2021-06-03 17:00] LABS: Glucose Point of Care 142 mg/dL (70-110)
[2021-06-03] MEDS: insulin lispro 100 unit/1 mL SUBCUT ×2 (17:58→22:07)
[2021-06-03] MEDS: FUROsemide 10 mg/mL SDV 4mL 40 MG IVP (20:05)
--- NOTE | 2021-06-03 20:23 | USCV_ITS ---
Ambrose Villa Age: 75 Gender: M : 1945 Exam Date: 06/03/2021 10:14 Ordering Phys: Steve Barnes MD Technologist: Olga Merida [place] [facility] [place]: Chest pain, [place] BP: 113 / 71 HR: 63 Rhythm: Sinus Technical Quality: Suboptimal MEASUREMENTS (Male / Female) Normal Values 2D ECHO LV Diastolic Diameter PLAX 4.3 cm 4.2 - 5.9 / 3.9 - 5.3 cm LV Systolic Diameter PLAX 3.2 cm IVS Diastolic Thickness 1.6 cm 0.6 - 1.0 / 0.6 - 0.9 cm IVS Systolic Thickness 1.8 cm LVPW Diastolic Thickness 1.2 cm 0.6 - 1.0 / 0.6 - 0.9 cm LVPW Systolic Thickness 1.4 cm LV Ejection Fraction 2D Teich 48.1 % LV Ejection Fraction MOD 2C 50.4 % LV Ejection Fraction 2C AL 51.9 % M-MODE LV Diastolic Diameter MM 5.1 cm 4.2 - 5.9 / 3.9 - 5.3 cm LV Systolic Diameter MM 3.8 cm LV Ejection Fraction MM Teich 50.3 % IVS Diastolic Thickness MM 1.2 cm 0.6 - 1.0 / 0.6 - 0.9 cm IVS Systolic Thickness MM 1.1 cm LVPW Diastolic Thickness MM 1.1 cm 0.6 - 1.0 / 0.6 - 0.9 cm LVPW Systolic Thickness MM 1.6 cm FINDINGS Left Ventricle LV size with diminished ejection fraction of 48%. Moderate diffuse hypokinesia of the septum and anteroseptal segments. Right Ventricle Appears mildly dilated with normal ejection fraction Right Atrium Could not be visualized well Left Atrium Possibly of normal size Mitral Valve No gross abnormalities noted Aortic Valve No gross abnormalities noted Tricuspid Valve Tricuspid valve not well visualized. Pulmonic Valve Pulmonic valve not well visualized. Pericardium No pericardial effusion. Aorta Normal aortic annulus size. CONCLUSIONS LV size with diminished ejection fraction of 48%. Moderate diffuse hypokinesia of the septum and anteroseptal segments. Right ventricle appears to be mildly dilated with normal ejection fraction. The aortic and mitral valves morphology appear to be in normal limits. There is no pericardial effusion. There are no intracardiac masses. Compared to the study from 02/21/2021, there seems to be a drop in the LV ejection fraction. But because of the difference in technical quality, the comparison is difficult(the previous study was at the echo contrast). Dr Hansa Humphrey MD [facility] (Electronically Signed) Final Date: 03 June 2021 16:22 S
[2021-06-03 21:12] LABS: Glucose Point of Care 213 mg/dL (70-110)
[2021-06-04] VITALS (71 sets, daily range): BP systolic 96–151; BP diastolic 52–99; PULSE 58–88; RESP 12–28; TEMP 36.4–36.7; O2SAT 87–96
[2021-06-04] MEDS: metoprolol tartrate 25 mg Tablet 50 MG PO ×2 (05:30→17:22)
[2021-06-04] MEDS: aspirin 81 mg EC Tablet PO (05:30)
[2021-06-04] MEDS: gabapentin 100 mg Capsule 300 MG PO ×3 (05:30→17:22)
[2021-06-04] MEDS: insulin glargine 100 units/1 mL 50 UNIT SUBCUT (05:31)
[2021-06-04] MEDS: cholecalciferol (vitamin D3) 1,000 unit Tablet 2000 UNIT PO (05:31)
[2021-06-04 06:07] LABS: Basophils # 0.1 10^3/uL (0.0-0.1); Basophils % 0.7 %; Eosinophils # 0.5 10^3/uL (0.0-0.8); Eosinophils % 6.2 %; Hematocrit 46.7 % (42.0-52.0); Hemoglobin 15.6 g/dL (11.7-16.6); Lymphocytes % 36.7 %; Mean Corpuscular HGB Conc 33.4 g/dL (30.0-36.0); Mean Corpuscular Hemoglobin 32.3 pg (28.0-34.0); Mean Corpuscular Volume 96.7 fl (80-94); Mean Platelet Volume 10.9 fL (7.4-10.4); Monocytes # 0.5 10^3/uL (0.2-0.9); Monocytes % 5.7 %; Neutrophils # 4.15 10^3/uL (1.8-7.7); Neutrophils % 50.3 %; Nucleated Red Blood Cells % 0 %; Platelet Count 168 10^3/cmm (130-400); Red Blood Count 4.83 10^6/uL (4.1-5.3); Red Cell Distribution Width 13.7 % (12.1-15.1); White Blood Count 8.3 10^3/uL (4.0-10.0)
[2021-06-04 06:28] LABS: Anion Gap 13.1 (5-19); Blood Urea Nitrogen 20 mg/dL (8-23); Carbon Dioxide 29 mmol/L (22-29); Chloride 98 mmol/L (98-107); Glucose 175 mg/dL (65-115); Osmolality Calculated 289 mOsm/kg (285-295); Potassium 4.1 mmol/L (3.5-5.1); Sodium 136 mmol/L (136-145)
[2021-06-04 06:35] LABS: Glucose Point of Care 178 mg/dL (70-110)
--- NOTE | 2021-06-04 08:00 | ECG_ITS ---
[facility] Test Date: 2021-06-04 Pat Name: Ambrose Villa Department: Room: 256 Gender: Male Certified Flex Endoscope Reprocessor: Fiona SantosJesu : 1945 Requested By: Steve Barnes Order Number: [id number] Denice MD: Hansa Humphrey M.D. Interpretive Statements NAME OF STUDY: LEXISCAN SESTAMIBI STRESS TEST INDICATION: Chest Pain, SEND RESULTS TO [facility] PROCEDURE: At the baseline, the EKG revealed normal sinus rhythm with a poor R wave progression. Some nonspecific T wave changes. The baseline blood pressure was 98/58 mm Hg with a heart rate of 59 beats/min. Lexiscan was infused over a period of 20 seconds. A total of 0.4 milligrams of Lexiscan was infused. The stress phase was continued for a total of 5 minutes. Heart rate at the end of the stress phase was 71 with a blood pressure 98/66. The EKG at the peak infusion revealed no significant changes. Sestamibi was injected 20 seconds after the Lexiscan infusion. Blood pressure at the end of the recovery phase was 96/60 with a heart rate of 70 per minute. CONCLUSION: 1. No significant EKG changes with the LexiScan infusion 2. No LexiScan induced chest pain or cardiac arrhythmia 3. Normal blood pressure and heart rate response 4. Sestamibi/sestamibi perfusion scan pending; see separate report. Electronically Signed On 06-08-2021 1:42:24 FIELD FOREMAN by Hansa Humphrey M.D. [email or web address]
[2021-06-04] MEDS: regadenoson 0.4 Mg/5 ml Syringe IVP (08:04)
--- NOTE | 2021-06-04 09:20 | P.PN_ITS ---
Subjective Subjective: Interval history: She underwent a myocardial perfusion imaging today. He was found to have moderate areas of ischemia in the distribution of all 3 coronary arteries. He denies any chest pain or shortness of breath at rest. He has a heaviness feeling in the chest with activities. No fever or chills. Medications: Reviewed: Yes Medication Review Details: Current Medications Acetaminophen (Acetaminophen 325 Mg Tablet) 650 mg PO Q6H PRN PRN Reason: Mild/Mod Pain Or Temp >/= 101 Hydrocodone Bitart/Acetaminophen (Hydrocodone-Acetaminophen 5-325 Mg Tablet) 1 tab PO Q4H PRN PRN Reason: pain Albuterol Sulfate (Albuterol 8 Gm Mdi) 2 puff INHALATION Q6H PRN PRN Reason: Wheezing Aminophylline (Aminophylline 25 Mg/Ml Sdv 10 Ml) 25 mg IVP Q2M PRN PRN Reason: see dose instructions Stop: 06/05/21 06:32 Aspirin (Aspirin 81 Mg Ec Tablet) 81 mg PO DAILY@0600 [facility] Last Admin: 06/04/21 05:30 Dose: 81 mg Documented by: Atorvastatin Calcium (Atorvastatin 40 Mg Tablet) 20 mg PO DAILY [facility] Last Admin: 06/03/21 08:43 Dose: 20 mg Documented by: Dextrose (Dextrose 50% Syringe 50 Ml) 25 ml IVP ONCE PRN; Protocol PRN Reason: hypoglycemia protocol Dextrose (Dextrose 50% Syringe 50 Ml) 50 ml IVP PRN PRN; Protocol PRN Reason: hypoglycemia protocol Dextrose (Dextrose 50% Syringe 50 Ml) 25 ml IVP ONCE PRN; Protocol PRN Reason: hypoglycemia protocol Dextrose (Dextrose 50% Syringe 50 Ml) 50 ml IVP PRN PRN; Protocol PRN Reason: hypoglycemia protocol Furosemide (Furosemide 10 Mg/Ml Sdv 4ml) 40 mg IVP Q24H [facility] Last Admin: 06/03/21 20:05 Dose: 40 mg Documented by: Gabapentin (Gabapentin 100 Mg Capsule) 300 mg PO TID@06,12,18 [facility] Last Admin: 06/04/21 05:30 Dose: 300 mg Documented by: Glucagon (Glucagon 1 Mg/Ml Inj 1 Ml) 1 mg IM ONCE PRN; Protocol PRN Reason: Adult Acute Hypoglycemia Prot. Glucagon (Glucagon 1 Mg/Ml Inj 1 Ml) 1 mg IM ONCE PRN; Protocol PRN Reason: Adult Acute Hypoglycemia Prot. Dextrose (D5w) 500 mls @ 100 mls/hr IV ONCE PRN; Protocol PRN Reason: Adult Acute Hypoglycemia Prot Dextrose (D5w) 500 mls @ 100 mls/hr IV ONCE PRN; Protocol PRN Reason: Adult Acute Hypoglycemia Prot Insulin Glargine (Insulin Glargine 100 Units/1 Ml) 50 unit SUBCUT DAILY@0600 [facility] Last Admin: 06/04/21 05:31 Dose: 50 unit Documented by: Insulin Human Lispro (Insulin Lispro 100 Unit/1 Ml) 0 unit SUBCUT WM&BEDTIME [facility]; Protocol Last Admin: 06/03/21 22:07 Dose: 4 unit Documented by: Metoprolol Tartrate (Metoprolol Tartrate 25 Mg Tablet) 50 mg PO BID@0600,1800 [facility] Last Admin: 06/04/21 05:30 Dose: 50 mg Documented by: Nitroglycerin (Nitroglycerin 0.4 Mg Sublingual Tablet) 0.4 mg SUBLINGUAL Q5M PRN PRN Reason: CHEST PAIN Stop: 06/05/21 06:32 Ondansetron HCl (Ondansetron 2 Mg/Ml Sdv 2 Ml) 4 mg IVP Q2M PRN PRN Reason: NAUSEA Fluticasone/Salmeterol (Fluticasone-Salmeterol 250-50 Diskus) 2 puff INHALATION BID [facility] Last Admin: 06/03/21 20:27 Dose: Not Given Documented by: Tamsulosin HCl (Tamsulosin 0.4 Mg Capsule) 0.4 mg PO DAILY [facility] Last Admin: 06/03/21 08:44 Dose: 0.4 mg Documented by: Vitamin D (Cholecalciferol (Vitamin D3) 1,000 Unit Tablet) 2,000 unit PO DAILY@0600 [facility] Last Admin: 06/04/21 05:31 Dose: 2,000 unit Documented by: Vitals/I&O/Wt Last Vital Signs Temp 98.1 F 06/04/21 04:00 Pulse 70 06/04/21 08:21 Resp 17 06/04/21 04:00 BP 96/60 06/04/21 08:21 Pulse Ox 94 06/04/21 04:00 06/03/21 06/04/21 06/04/21 22:59 06:59 14:59 Intake Total 360 / 960 Balance 360 / 835 Weight last 48 hrs Weight 276 lb 3.2 oz Weight 280 lb 4.8 oz Weight 265 lb Weight 265 lb Physical Exam Narrative: EXAM NARRATIVE: GENERAL: The patient is alert and oriented times t hree. Not in any acute distress. Morbidly obese HEENT: No significant pallor, icterus or lymphadenopathy. The pupils are symmetrical. Oral cavity: There are no mucous membrane lesions. NECK: Trachea appears to be central. No masses noted. No JVD or thyromegaly appreciated. No carotid bruit. RESPIRATORY: Chest is symmetrical. No intercostals muscle retraction or any accessory muscle activation. There is no chest wall tenderness. Breath sounds are heard bilaterally. Diagnosis of breath sounds are diminished in the bases. Occasional expiratory wheezing BREASTS: Deferred. HEART: The PMI is in the 5th left intercostals space just inside the midclavicular line. No palpable precordial events. S1 and S2 are normal. No S3 or S4 heard. No pericardial rub or any click heard. Short systolic murmur in the left sternal border. No diastolic murmurs ABDOMEN: Abdomen is obese. No vessel pulsations or distention. No tenderness. No organomegaly appreciated. No abdominal bruit. Bowel sounds are normally heard. : Deferred. RECTAL: Deferred. LYMPHATIC: No lymphadenopathy noted in the neck or groin. EXTREMITIES: No edema cyanosis. Peripheral pulses are palpable but somewhat weak bilaterally. MUSCULOSKELETAL: No acute joint deformities or swelling SKIN: There are no significant scars or skin rash noted. NEUROPSYCHIATRIC: No focal motor deficits Data : 06/04/21 05:06 06/04/21 05:06 Other Labs: Laboratory Last Values WBC 8.3 10^3/uL (4.0-10.0) 06/04/21 05:06 RBC 4.83 10^6/uL (4.1-5.3) 06/04/21 05:06 Hgb 15.6 g/dL (11.7-16.6) 06/04/21 05:06 Hct 46.7 % (42.0-52.0) 06/04/21 05:06 MCV 96.7 fl (80-94) H 06/04/21 05:06 MCH 32.3 pg (28.0-34.0) 06/04/21 05:06 MCHC 33.4 g/dL (30.0-36.0) 06/04/21 05:06 RDW 13.7 % (12.1-15.1) 06/04/21 05:06 Plt Count 168 10^3/cmm (130-400) 06/04/21 05:06 MPV 10.9 fL (7.4-10.4) H 06/04/21 05:06 Neut % (Auto) 50.3 % 06/04/21 05:06 Lymph % (Auto) 36.7 % 06/04/21 05:06 [place] % (Auto) 5.7 % 06/04/21 05:06 Eos % (Auto) 6.2 % 06/04/21 05:06 Baso % (Auto) 0.7 % 06/04/21 05:06 Neut # (Auto) 4.15 10^3/uL (1.8-7.7) 06/04/21 05:06 Lymph # (Auto) 3.0 10^3/uL (0.8-4.8) 06/04/21 05:06 [place] # (Auto) 0.5 10^3/uL (0.2-0.9) 06/04/21 05:06 Eos # (Auto) 0.5 10^3/uL (0.0-0.8) 06/04/21 05:06 Baso # (Auto) 0.1 10^3/uL (0.0-0.1) 06/04/21 05:06 Nucleated RBC % (auto) 0 % 06/04/21 05:06 Nucleated RBCs # 0.0 /100WBC 06/04/21 05:06 D-Dimer 0.84 ug/mIFEU (0-0.59) H 06/02/21 12:38 Sodium 136 mmol/L (136-145) 06/04/21 05:06 Potassium 4.1 mmol/L (3.5-5.1) 06/04/21 05:06 Chloride 98 mmol/L (98-107) 06/04/21 05:06 Carbon Dioxide 29 mmol/L (22-29) 06/04/21 05:06 Anion Gap 13.1 (5-19) 06/04/21 05:06 BUN 20 mg/dL (8-23) 06/04/21 05:06 Creatinine 1.2 mg/dL (0.7-1.2) 06/04/21 05:06 GFR Calculation Not Reportable 06/04/21 05:06 Glucose 175 mg/dL (65-115) H 06/04/21 05:06 POC Glucose 178 mg/dL (70-110) H 06/04/21 05:29 Calculated Osmolality 289 mOsm/kg (285-295) 06/04/21 05:06 Calcium 9.0 mg/dL (8.5-10.5) 06/04/21 05:06 Total Bilirubin 0.4 mg/dL (0.15-1.2) 06/02/21 12:38 AST 18 U/L (0-40) 06/02/21 12:38 ALT 13 U/L (0-41) 06/02/21 12:38 Alkaline Phosphatase 68 IU/L (40-130) 06/02/21 12:38 Creatine Kinase 153 U/L (39-308) 06/02/21 12:38 Troponin T Baseline 33 ng/L (0-15) H 06/02/21 12:38 Troponin T 120 Minute 39.03 ng/L (0-15) H 06/02/21 14:48 Delta Troponin T 6.03 ABS# (0-10) 06/02/21 14:48 Troponin T Hi Sens 6Hr 33.32 ng/L (0-15) H 06/02/21 18:22 Troponin T Hi Sens 6Hr Delta 0.32 ng/L (0-12) 06/02/21 18:22 NT-Pro-B Natriuret Pep 210 pg/mL (0-125) H 06/02/21 12:38 Total Protein 6.6 g/dL (6.6-8.7) 06/02/21 12:38 Albumin 4.1 g/dL (3.5-5.2) 06/02/21 12:38 Globulin 2.5 g/dL (1.3-4.6) 06/02/21 12:38 Lipase 21 U/L (13-60) 06/02/21 12:38 Urine Color Minnie (Yellow) 06/02/21 20:24 Urine Appearance Hazy (CLEAR) A 06/02/21 20:24 Urine pH 5 (5-7) 06/02/21 20:24 Ur Specific [place] 1.020 (1.005-1.030) 06/02/21 20:24 Urine Protein Trace (Negative) 06/02/21 20:24 Urine Glucose (UA) 4+ (Normal) H 06/02/21 20:24 Urine Ketones Negative (Negative) 06/02/21 20:24 Urine Blood 3+ (Negative) H 06/02/21 20:24 Urine Nitrate Negative (Negative) 06/02/21 20:24 Urine Bilirubin Neg (Negative) 06/02/21 20:24 Urine Urobilinogen Norm mg/dL (Negative) 06/02/21 20:24 Ur Leukocyte Esterase 1+ (Negative) H 06/02/21 20:24 Urine RBC >100 /hpf (0-2) H 06/02/21 20:24 Urine WBC 5-10 /hpf (0-5) H 06/02/21 20:24 Ur Squamous Epith Cells 0-4 /hpf (0-5) H 06/02/21 20:24 Amorphous Sediment Not Reportable 06/02/21 20:24 Urine Bacteria Trace /hpf (NONE) 06/02/21 20:24 Urine Yeast 1+ /hpf H 06/02/21 20:24 Micro: Microbiology 06/02/21 20:24 Urine Culture - Preliminary Urine,Clean Catch A&P Assessment and plan (1) Dyspnea on exertion: The patient shortness of breath and chest tightness, could be related to underlying coronary ischemia. Status: Acute (2) Elevated troponin: In view of the abnormal myocardial perfusion imaging, it is possible that the patient might have had a non-ST elevation myocardial infarction/type II CT. His EKG is unremarkable. Status: Acute (3) Atypical chest pain: Has not had any recurrence of chest pain since hospital admission. Status: Acute (4) Atherosclerotic heart disease of [place] coronary artery with other forms of angina pectoris: For further evaluation of his coronary status as well as the graft status, cardiac catheterization would be appropriate. A myocardial perfusion may results are discussed with the patient in detail with its implication. Patient is wanting to go ahead with the angiogram. The risk of bleeding, hematoma, vascular injury, myocardial infarction, CVA, renal failure and other concomitant complications were explained in detail. She understood this well and consented to proceed. Status: Acute (5) COPD (chronic obstructive pulmonary disease): May continue on the current treatment. Status: Acute Qualifiers: COPD type: unspecified COPD Qualified Code(s): J44.9 - Chronic obstructive pulmonary disease, unspecified (6) Benign essential hypertension with target blood pressure below 140/90: Need to optimize antihypertensive medications Status: Acute (7) Dyslipidemia: Continue other medications. Follow-up evaluation as scheduled Status: Acute Additional A&P Information I may go ahead and schedule the test tomorrow morning in the cardiac [place] [facility]. In the meanwhile, he may continue on the current medications. Based on the angiogram findings, further recommendations will be made. Attestations Medical Necessity Statement*: Patient requires continued hospital stay for close monitoring and further management Coding Level of Care Code Acute Hvac Controls Technician for Adelaida Hayes Diagnoses Dyspnea on exertion R06.00 Elevated troponin R77.8 Atypical chest pain R07.89 Atherosclerotic heart disease of [place] coronary artery with other forms of angina pectoris I25.118 COPD (chronic obstructive pulmonary disease) J44.9 COPD type: unspecified COPD Benign essential hypertension with target blood pressure below 140/90 I10 Dyslipidemia E78.5
[2021-06-04] MEDS: tamsulosin 0.4 mg Capsule PO (10:12)
[2021-06-04] MEDS: atorvastatin 40 mg Tablet 20 MG PO (10:12)
[2021-06-04 11:24] LABS: Chol HDL Ratio 7.53 mg/dL (1.0-5.00); Cholesterol 226 mg/dL (0-200); HDL Cholesterol 30 mg/dL (60-100); LDL Cholesterol Calculated 149 mg/dL (50-129); Triglycerides 236 mg/dL (0-150); VLDL Cholestrol Calculation 47 mg/dL (0-30)
[2021-06-04 11:31] LABS: Estmated Average Glucose 197; Hemoglobin A1C 8.5 % (4.0-6.0)
[2021-06-04 11:40] LABS: Glucose Point of Care 191 mg/dL (70-110)
[2021-06-04] MEDS: insulin lispro 100 unit/1 mL SUBCUT ×3 (13:12→20:15)
--- NOTE | 2021-06-04 14:03 | P.PN_ITS ---
Subjective Subjective: Interval history: Hospital course, labs appreciated. Today morning patient seen post Lexiscan stress test. Patient on 4 L oxygen supplementation. Denies any nausea, vomiting, headache. Denies any further chest pain. Had a long discussion regarding possible causes of his chest pressure and difficulty in breathing. We discussed regarding need of continuous CPAP and a possible cardiac angiogram if the Lexiscan stress test comes back positive. Medications: Reviewed: Yes Vitals/I&O/Wt Last Vital Signs Temp 97.5 F L 06/04/21 12:00 Pulse 58 L 06/04/21 12:00 Resp 18 06/04/21 12:00 BP 151/90 06/04/21 12:00 Pulse Ox 90 06/04/21 12:00 06/03/21 06/04/21 06/04/21 22:59 06:59 14:59 Intake Total 360 / 960 Balance 360 / 835 Weight last 48 hrs Weight 125.282 kg Weight 127.142 kg Weight 120.202 kg Physical Exam Narrative: EXAM NARRATIVE: Family with him in the room. Const: COMMON NORMALS: no acute distress, patient oriented x3 and alert GENERAL APPEARANCE: cooperative NUTRITIONAL APPEARANCE: obese ORIENTATION/CONSCIOUSNESS: Yes awake HENMT: COMMON NORMALS: oropharynx normal Neck/C-Spine: COMMON NORMALS: no JVD Resp: COMMON NORMALS: normal respiratory effort and clear to auscultation bilaterally AUSCULTATION: clear to auscultation bilaterally Cardio: COMMON NORMALS: no JVD, regular rhythm, S1 normal heart sound present, S2 normal heart sound present and No murmurs present (Cardio) RHYTHM: regular rhythm HEART SOUNDS: S1 normal heart sound present and S2 normal heart sound present GI: COMMON NORMALS: Normal to inspection, nondistended, normoactive bowel sounds present, Soft to palpation and non-tender PALPATION: Yes Soft to palp ation Extremity: COMMON NORMALS: no joint enlargement GENERAL: Yes edema (1+) Neuro: COMMON NORMALS: patient oriented x3 and moves all extremities SENSORIUM/ORIENTATION: Yes alert Skin: COMMON NORMALS: no rashes or lesions noted GENERAL SKIN EXAM: no rashes or lesions noted Data : 06/04/21 05:06 06/04/21 05:06 Micro: Microbiology 06/02/21 20:24 Urine Culture - Preliminary Urine,Clean Catch A&P Assessment and plan (1) Chest pain: Post CABG, cardiac angiogram December 2019 showing chronically occluded RCA, ramus, proximal LAD with patent SVG to RCA and diagonal. Lexiscan results appreciated cardiology recommendations appreciated. Plan for cardiac angiogram tomorrow morning. N.p.o. after midnight. Continue with aspirin, increased dose of statin to 80 mg daily. Check lipid panel, A1c. Nitrate as needed. Status: Acute (2) Dyspnea on exertion: Most likely a combination of unstable angina secondary to CAD, obstructive sleep apnea exacerbation secondary to noncompliance to CPAP. For now continue with home dose of inhalers. Echocardiogram results appreciated. Showing EF of 48% with moderate diffuse hypokinesia septum and anteroseptal segments, RV looking mildly dilated. IV Lasix 40 mg daily. Monitors strict input output, daily weights, fluid restriction up to 1500 cc. Oxygen supplementation keeping saturation over 88%. Discussed in detail with patient regarding compliance with CPAP, possible resleep study to adjust CPAP settings. Patient verbalized understanding and is agreeable to follow-up. Minimal abnormality of D-dimer, 0.84. No unilateral leg edema. No cough, shortness of breath, on baseline oxygen. I believe probability of PE is low. At this time obtaining VQ scan may not be helpful given underlying COPD, and would interfere also with assessment by stress test. He is concerned regarding his renal function with consideration of CTA. Currently also not a candidate for anticoagulation given hematuria. Status: Acute (3) Chronic kidney disease: Creatinine currently appears close to baseline. Status: Acute (4) Sleep apnea: Should resume and continue CPAP Status: Acute Qualifiers: Sleep apnea type: unspecified type Qualified Code(s): G47.30 - Sleep apnea, unspecified (5) Coronary artery disease: Continue aspirin, beta-vee, statin. Status: Chronic Qualifiers: Coronary Disease-Associated Artery/Lesion type: bypass graft [place] vs. transplanted heart: [place] heart Associated angina: with unspecified angina Qualified Code(s): I25.709 - Atherosclerosis of coronary artery bypass graft(s), unspecified, with unspecified angina pectoris (6) COPD with hypoxia: Does not appear in exacerbation. Status: Acute (7) On home O2: Status: Acute Additional A&P Information DM2: Insulin HLD: Continue statin HTN: Continue metoprolol, monitor blood pressures BPH: Continue Flomax Attestations Medical Necessity Statement*: Requires further hospitalization for management of unstable angina, positive stress test, obstructive sleep apnea in setting of CAD post CABG. Time Spent in Patient Care: Greater than 35 minutes (>than 50% of time spent in counselling and/or direct pt care on unit) . Coding Level of Care Code Acute Jewelry Drilling Machine Operator for Adelaida Hayes Diagnoses Chest pain R07.9 Dyspnea on exertion R06.00 Chronic kidney disease N18.9 Sleep apnea G47.30 Sleep apnea type: unspecified type Coronary artery disease I25.709 Coronary Disease-Associated Artery/Lesion type: bypass graft [place] vs. transplanted heart: [place] heart Associated angina: with unspecified angina COPD with hypoxia J44.9; R09.02 On home O2 Z99.81
--- NOTE | 2021-06-04 14:46 | NMCV_ITS ---
NM cooper perf SPECT r/s* [id number] [address] Age: 75 Gender: M : 1945 Exam Date: 06/04/2021 07:20 Ordering Phys: Steve Barnes MD Technologist: ELLIE Dodge Exam Location: [facility] Indications: Chest pain STRESS TEST Please see separate stress test report in [facility] for full findings IMAGE PROTOCOL Rest/Stress 1 Lexiscan Day Radiopharmaceutical Dose (mCi) Administration Site Administered by Rest: Tc-99m 10.9 IV ELLIE Dodge Sestamibi Stress:Tc-99m 33.0 IV ELLIE Dodge Sestamibi Rest: 04-Jun-2021 60 Discovery 630 Stress: 04-Jun-2021 45 Discovery 630 0.4mg Lexiscan. Images obtained in supine and prone position. SPECT RESULTS Technical Quality: Good Raw Data Analysis: Soft tissue attenuation Image Corrections: Patient motion artifact - motion correction applied to prone images Summed Stress Score: 18 Summed Rest Score: 6 Summed Difference Score: 12 PERFUSION FINDINGS Moderate to large areas of decreased asymmetry in the basal and mid inferolateral, basal anterolateral, mid and apical inferior and all the apical segments. Significant reversibility was noted in the apical segments, basal anterolateral, mid and apical inferior wall regions. FUNCTIONAL RESULTS (calculated via Gated SPECT) Stress Image LV EF (%): 41 Stress EDV (mL):128 TID: 1.37 Stress ESV (mL):75 FUNCTIONAL FINDINGS: Segmental wall motion analysis revealed severe diffuse hypokinesia of the inferior wall, apex and the septum. IMPRESSIONS 1. Myocardial perfusion imaging revealing moderate to large areas of decreased tracer uptake in the inferolateral, basal anterolateral, inferior and apical segments with significant reversibility in the apex, mid and apical inferior and basal anterolateral regions suggesting ischemia in the distribution of all 3 coronary arteries. The elevated transient ischemic dilatation ratio 1.37 also he is suggestive of ischemia. Significant myocardial scarring in distribution of the left circumflex artery. 2. Diminished LV ejection fraction of 41%. 3. Multiple wall motion normalities as mentioned above. 4. Dilated LV cavity with an end-systolic volume of 75 mL. Compared to the study from 02/05/2018, the ischemia appears to be new Dr Hansa Humphrey MD FACC (Electronically Signed) Final Date: 04 June 2021 13:19 S
[2021-06-04 16:58] LABS: Glucose Point of Care 176 mg/dL (70-110)
[2021-06-04] MEDS: enoxaparin 40 mg/0.4 mL Syringe SUBCUT (18:42)
[2021-06-04] MEDS: FUROsemide 10 mg/mL SDV 4mL 40 MG IVP (19:46)
[2021-06-04 20:15] LABS: Glucose Point of Care 257 mg/dL (70-110)
--- NOTE | 2021-06-04 20:44 | PC.NURSE ---
Patient reports constipation and requested stool softener. Called Dr. Kang and received orders for Colace. Continue care.
[2021-06-04] MEDS: docusate sodium 100 mg Capsule PO (20:46)
[2021-06-04 21:09] LABS: Glucose Point of Care 98 mg/dL (70-110)
[2021-06-05] VITALS (162 sets, daily range): BP systolic 88–143; BP diastolic 46–97; PULSE 53–98; RESP 0–38; O2SAT 81–98
[2021-06-05 05:10] LABS: Basophils # 0.1 10^3/uL (0.0-0.1); Basophils % 0.5 %; Eosinophils # 0.5 10^3/uL (0.0-0.8); Hematocrit 46.5 % (42.0-52.0); Hemoglobin 15.6 g/dL (11.7-16.6); Lymphocytes % 28.5 %; Mean Corpuscular HGB Conc 33.5 g/dL (30.0-36.0); Mean Corpuscular Hemoglobin 32.4 pg (28.0-34.0); Mean Corpuscular Volume 96.7 fl (80-94); Mean Platelet Volume 10.5 fL (7.4-10.4); Monocytes # 0.6 10^3/uL (0.2-0.9); Monocytes % 5.8 %; Neutrophils % 59.9 %; Nucleated Red Blood Cells % 0 %; Platelet Count 164 10^3/cmm (130-400); Red Blood Count 4.81 10^6/uL (4.1-5.3); Red Cell Distribution Width 13.8 % (12.1-15.1); White Blood Count 10.4 10^3/uL (4.0-10.0)
[2021-06-05] MEDS: sodium chloride 0.9% 1,000 ML 50 ML IV (05:32)
[2021-06-05] MEDS: diphenhydrAMINE 50 mg Capsule PO (05:32)
[2021-06-05] MEDS: metoprolol tartrate 25 mg Tablet 50 MG PO ×2 (05:32→18:03)
[2021-06-05] MEDS: cholecalciferol (vitamin D3) 1,000 unit Tablet 2000 UNIT PO (05:32)
[2021-06-05] MEDS: aspirin 81 mg EC Tablet PO (05:32)
[2021-06-05] MEDS: gabapentin 100 mg Capsule 300 MG PO ×3 (05:36→18:03)
[2021-06-05 05:45] LABS: Alanine Aminotransferase 11 U/L (0-41); Albumin Level 3.9 g/dL (3.5-5.2); Alkaline Phosphatase 67 IU/L (40-130); Anion Gap 20.1 (5-19); Aspartate Amino Transferase 15 U/L (0-40); Blood Urea Nitrogen 24 mg/dL (8-23); Calcium 8.8 mg/dL (8.5-10.5); Carbon Dioxide 24 mmol/L (22-29); Chloride 97 mmol/L (98-107); Globulin 2.5 g/dL (1.3-4.6); Glucose 175 mg/dL (65-115); Osmolality Calculated 292 mOsm/kg (285-295); Potassium 4.1 mmol/L (3.5-5.1); Sodium 137 mmol/L (136-145); Total Bilirubin 0.7 mg/dL (0.15-1.2); Total Protein 6.4 g/dL (6.6-8.7)
--- NOTE | 2021-06-05 05:49 | XACV_ITS ---
Exam Room: [facility] Ht: 170 cm Wt: 125 kg BSA: 2.50 m2 Gender: Male : 1945 Any Known Allergies: Penicillins Exam Priority: Routine Procedure(s): Procedure Description: Diagnostic procedure Procedure Description: Left Heart Catheterization Procedure Description: Venous Graft Catheterization Procedure Description: Coronary Angiography Kam KEN; Diagnostic Cath Status: Urgent Diagnostic Findings * The left main is a medium caliber vessel with minimal intimal regularities. No significant stenotic lesions were noted. * The left and descending artery appears to be totally occluded proximally. * The left circumflex artery was found to have mild diffuse disease. No significant stenotic lesions. * The intermedius artery is a small caliber vessel which was found to have severe diffuse disease. * The right coronary artery appears to be totally occluded after giving of the sinus alban branch. * The the venous graft to the PDA was found to be patent. Moderate disease was noted in the proximal segment of the vein graft. No significant stenotic lesions. * The sequential venous graft to the intermedius/diagonal artery was found to be patent. The anastomosis of the intermedius artery appears to be totally occluded. Retrograde flow from the diagonal was found to be filling of the mid and distal LAD. Right after the takeoff of the diagonal, there is a high-grade lesion in the LAD. The distal LAD was found to have mild diffuse disease with no significant stenotic lesions. * The BOSWELL to the LAD was found to be atretic, during the previous angiogram. So I did not attempt to engage the artery at this time. Conclusions 1. This 75-year-old white male with history of coronary disease, status post four-vessel coronary bypass surgery, presenting with increasing episodes of chest pain,, suggesting unstable angina. Myocardial perfusion imaging revealed moderate areas of ischemia in the distribution of all 3 coronary arteries more so in the distribution of the LAD. For further evaluation of his coronary status as well as the graft status, a cardiac catheterization was recommended. Patient underwent left heart catheterization with left and right coronary angiogram, and graft angiogram today. The findings are as follows. 2. The left and descending artery was found to be totally occluded proximally. Right coronary artery also was found to be totally occluded proximally, after the sinus alban branch. The left circumflex artery was found to have mild diffuse disease. The intermedius artery was found to have moderate to severe diffuse disease. This is a relatively small caliber vessel. 3. The saphenous venous graft to the PDA was found to be patent. Sequential venous graft to the intermedius/diagonal vessel also was found to be patent. The anastomosis to the intermedius artery was found to be occluded. The BOSWELL to the LAD was found to be atretic from the previous angiogram. The mid to distal LAD was found to be retrogradely filled by the diagonal graft. The left anterior descending artery was found to have a high-grade lesion after the origin of the diagonal branch. Distal LAD was found to have mild diffuse disease. LV gram was not performed. LVEDP was 9 mmHg.. 4. The angiogram was reviewed by Dr. Kaur. The percutaneous intervention of the LAD lesion was found to be technically challenging. Because of the patient's chest wall complication after the previous surgery, surgical intervention also is going to be difficult. For further management of this patient, transferred to be appropriate to transfer him to a facility where complex interventions can be performed. Diagnostic RX Recommendation: other cardiac therapy w/o CABG/PCI Left Ventriculography Findings: * The LV gram was not performed because of the dye overload concern. LVEDP was 9 mmHg. Pressures Phase:Rest AO : 93 / 54 ( 68 ) @ 6:02:00 AM 99 / 53 ( 71 ) @ 6:38:00 AM 103 / 55 ( 73 ) @ 6:38:00 AM LV : 109 / -11 / 8 @ 6:38:00 AM 108 / -8 / 7 @ 6:38:00 AM Valves Phase:DefaultPhase AV : 9.0 @ 9:07:24 AM AV Mean Gradient: 11.0 @ 9:07:24 AM Clinical Evaluation EBL: 5mL-10mL Procedural Details Procedure Consent Obtained. Pre-Procedure Time Out. Identified patient by full name and date of as verbalized by the patient/guarantor. Does the consent match the physician's order: Yes. Accurate & Complete Informed Consent: Yes. Inpatient/Outpatient History & Physical on Chart: Yes. If H&P is completed, is and addenduem needed: No; If yes, is the addendum complete: N/A. Visualize and Verify Site with Patient/Guarantor: N/A. Relevant Radiology Images available: N/A. Pre-op teaching completed and patient verbalized understanding. The risks, benefits, and alternatives of sedation and/or procedure were discussed by physician. The patient agrees to continue. Procedure started. [facility] Clinical Fraility Score: 4: Vulnerable. Emergency Spill Response Technician Indications: Worsening Angina. Chest Pain Symptom Assessment: Typical Angina Symptoms. Cardiovascular Instability: No. Correct patient, site and procedure confirmed by cath team. PERRLA. Strong, equal hand copy coordinator bilaterally. Lungs clear x 5 lobes. IV Site on Arrival: 20 gauge in the left hand. IV Fluids: 0.9% NaCl at KVO. 0 mL infused prior to laborer/key man. Pre Procedural Pulses: bilateral dorsalis pedis was 1+. Pre Procedural Pulses: bilateral posterior tibial was 1+. Oxygen started at 6liters/min via nasal canula. bilateral groins was prepped with chloroprep then draped in the usual sterile fashion. Equipment: 6F - Femoral. Cardiac Cath Pack. ACIST Manifold Kit Model BT 2000. Heparinized Saline (2 units/mL), 1000 mL bag. Kit, Micropuncture. Physician notified. Baseline sample Acquired. HR: 61 BPM. Physician arrived. Physician scrubbed in. Immediate Pre-Procedure Time Out. Correct Patient: Yes; Correct Procedure: Yes; Correct Site: Yes; Correct Patient Position: Yes; Correct Supplies: Yes; Dried Flammable Prep: Yes; Blood Products Available: N/A;. Lidocaine 1% infiltrated to the right groin. Arterial access obtained with micropuncture set. A 5 ecuadorean JL4 catheter in over wire. Catheter removed over the standard wire. A 5 ecuadorean JL5 catheter in over wire. Multiple views taken of left coronary artery. Catheter removed over the standard wire. A 5 ecuadorean JR4 catheter in over wire. Multiple views taken of right coronary artery. SVG's to RCA visualized and patent. A 5 ecuadorean AL1 catheter in over wire to look for BOSWELL. Catheter removed over the standard wire. Catheter removed over the standard wire. A 5 ecuadorean LCB catheter in over wire. SVG's to Diaganol visualized and patent. Catheter removed over the standard wire. SVG's to LAD visualized and patent. Called Dr Kaur to come view films. Catheter removed over the standard wire. A 5 ecuadorean AR MOD catheter in over wire. Dr Kaur arrived to view films. A 5 ecuadorean Angled Pig catheter in over wire. EDP Sample taken: LV 109/-12,8; HR: 62 BPM; SpO2: 96%. Pullback taken: LV 108/-9,7; AO 99/53(71); Mean: 11mmHg, Peak to Peak: 9mmHg, SEP: 19sec/min; HR: 62 BPM; SpO2: 95%. Sheath upsized to a [address] Humphrey scrubbed out. Inventory is [employer] Medical[employer] XT .014 190cm Str. Guidewire. AP pads applied to pt. Dr Kaur and Dr Humphrey talking to family. Dr. Kaur scrubbed in to close atery. A Right femoral angiogram was performed to determine safe placement of closure device. Lidocaine 1% infiltrated to the right groin. Perclose prepped. A Perclose (Rebelle Bridal) was successful obtaining hemostatsis at the Right Femoral artery insertion site. Perclose placed without complications. No signs or symptoms of hematoma noted. Sterile dressing applied per usual sterile fashion. Post Procedure: Pulses reassessed and unchanged. PERRLA. Strong, equal hand copy coordinator bilaterally. No VTE prophylaxis required. Total IV fluids: 333 mL. Medication's Wasted: Lidocaine 1% = [address] Kaur scrubbed out. Medication's Wasted: Heparin = 3000 units. Medication's Wasted: Other = versed 1 mg. Medication's Wasted: Other = fentanyl 50 mcg. Contrast type used: Visipaque 320 mgI/mL, 500 mL bottle. Post-op diagnosis: severe LAD disease. Complications: none. Estimated blood loss: 5mL-10mL. Procedure completed. Patient transferred by bed to ICU. Vital chart was stopped. Access Site Site: Right Femoral artery Sheath Size: 5 Fr Hemostasis Method: Perclose (Rebelle Bridal) Hemostasis Success: Successful Procedure Medications Start: 7:50 AM Stop: 7:50 AM Medication: Versed Amount: 1 mg Route: I.V. Start: 7:50 AM Stop: 7:50 AM Medication: Fentanyl Amount: 50 mcg Start: 8:11 AM Stop: 8:11 AM Medication: Versed Amount: 1 mg Route: I.V. Start: 8:25 AM Stop: 8:25 AM Medication: Heparin Amount: 1500 units Route: I.V. Start: 8:38 AM Stop: 8:38 AM Medication: 0.9% Saline Amount: 250 ml Route: I.V. bolus Start: 8:44 AM Stop: 8:44 AM Medication: Versed Amount: 1 mg Route: I.V. I, the attending physician, have reviewed and verified all procedure medications. Yes, all medications given per verbal order History/Risk Factors Hypertension: Yes Dyslipidemia: Yes Peripheral Arterial Disease (PAD): No Myocardial Infarction (SC): No Obesity: Yes Renal Disease: No Prior Interventions PCI: No CABG: Yes Valve Surgery: No Report Signatures Finalized by Dr Hansa Humphrey MD [facility] on 06/05/2021 04:56 PM
--- NOTE | 2021-06-05 05:57 | PC.NURSE ---
Patient in bed, no s/s of pain or distress. Prepped for solder making laborer.
--- NOTE | 2021-06-05 07:37 | PC.NURSE ---
To dental laboratory assistant at 0730 accompanied by Fitness Studies Teacher staff.
[2021-06-05 07:57] LABS: Glucose Point of Care 179 mg/dL (70-110)
--- NOTE | 2021-06-05 08:57 | W.PM.OPSUD ---
Surgery/Procedure H&P Update DATE OF PROCEDURE: June 05, 2021 DATE H&P PERFORMED: 06/03/21 H&P UPDATE INFORMATION: I have reviewed H&P completed within last 30 days, I have examined patient prior to procedure and No changes to prior documentation PREOP DIAGNOSIS: ASHD/unstable angina PRIMARY INDICATION FOR PROCEDURE: Unstable angina PLANNED PROCEDURE: [facility] with coronary angio, graft angio and possible PCI PATIENT REASSESSED PRIOR TO SEDATION, WITH NO CHANGE NOTED: Yes PHYSICAL EXAM: alert, oriented x 3, clear to auscultation bilaterally and regular rate & rhythm AIRWAY EVAL/ANESTHESIA PLAN: normal airway, see other exam findings, ASA III, Monitored Anesthesia, Local Anesthesia, Risks, benefits & alternatives of sedation and/or procedure discussed and Patient agrees to continue as planned
--- NOTE | 2021-06-05 09:21 | PC.NURSE ---
Back to ICU room 6 at 0910. Right groin site c/d/i, no hematoma noted. Para close used. Distal pulses intact.
--- NOTE | 2021-06-05 09:33 | PC.NURSE ---
Nurse attempted to call family to update them post PCI and allow them into room. No answer.
[2021-06-05] MEDS: insulin glargine 100 units/1 mL 50 UNIT SUBCUT (09:43)
--- NOTE | 2021-06-05 10:51 | PC.NURSE ---
Again attempted to call family per patient's request. No answer with numbers listed. PT asked me to try his son, Cordell, at [phone]. No answer.
[2021-06-05 11:46] LABS: Glucose Point of Care 135 mg/dL (70-110)
--- NOTE | 2021-06-05 12:43 | PM.MISC ---
Miscellaneous Note Purpose of Documentation: Was requested by Dr. Humphrey to give surgical opinion concerning the most recent catheterization of Mr. Villa which occurred this morning. Study reveals a patent vein graft to the RCA and a vein graft to the diagonal with antegrade flow to the LAD with a mid distal lesion. Apparently, he had CABG x4 in 2011 and subsequent attempt at sternal stabilization about a year later by Dr. Asher. I had seen him previously in my clinic for his unstable sternum but at that time did not recommend any type of particular attempt at plate stabilization related to the numerous fragments. Apparently, he was seen at [place] in [place] and it is understanding that no surgical intervention has occurred following this consultation. Is anterior and anterior/lateral wall is being supplied by the vein graft to the diagonal as his [place] circulation to this area is closed. This is a challenging situation and attempt at reentry related to his sternal instability may clearly result in direct cardiac/myocardial injury or injury to the patent grafts to the RCA and diagonal. While do not have the original operative report, upon review of the recent catheterization it appears that perhaps a BOSWELL was used in relation to the numerous clips I can see along the distribution where this graft would normally lie to the anterior wall. I do not have a record to confirm this however. Optional approaches to this concerning lesion of the LAD could perhaps be percutaneous therapy through a circuitous course of the diagonal graft or direct approach to the LAD, perhaps to the lateral direction with intrathoracic grafting. I do believe in the interest of safety and maximal options, consideration should be made for tertiary referral to a high-volume center. I discussed this very frankly with Mr. Villa and family at bedside.
--- NOTE | 2021-06-05 14:20 | PM.PN ---
Subjective Subjective: Interval history: No acute events overnight. Has remained hemodynamically stable and afebrile. Seen post cardiac catheterization today comfortably laying in bed. Cardiac catheterization revealed high-grade stenosis post graft in LAD. Patient denies any further chest pains. Medications: Reviewed: Yes Vitals/I&O/Wt Last Vital Signs Temp 97.8 F 06/04/21 15:26 Pulse 65 06/05/21 13:50 Resp 18 06/05/21 13:50 BP 118/59 06/05/21 12:30 Pulse Ox 91 06/05/21 13:50 06/04/21 06/05/21 06/05/21 22:59 06:59 14:59 Intake Total 360 / 480 0 / 480 240 / 240 Output Total 300 / 300 Balance 360 / 480 0 / 480 -60 / -60 Weight last 48 hrs Weight 125.282 kg Physical Exam Narrative: EXAM NARRATIVE: Family with him in the room. Const: COMMON NORMALS: no acute distress, patient oriented x3 and alert GENERAL APPEARANCE: cooperative NUTRITIONAL APPEARANCE: obese ORIENTATION/CONSCIOUSNESS: Yes awake HENMT: COMMON NORMALS: oropharynx normal Neck/C-Spine: COMMON NORMALS: no JVD Resp: COMMON NORMALS: normal respiratory effort and clear to auscultation bilaterally AUSCULTATION: clear to auscultation bilaterally Cardio: COMMON NORMALS: no JVD, regular rhythm, S1 normal heart sound present, S2 normal heart sound present and No murmurs present (Cardio) RHYTHM: regular rhythm HEART SOUNDS: S1 normal heart sound present and S2 normal heart sound present GI: COMMON NORMALS: Normal to inspection, nondistended, normoactive bowel sounds present, Soft to palpation and non-tender PALPATION: Yes Soft to palpation Extremity: COMMON NORMALS: no joint enlargement GENERAL: Yes edema (1+) Neuro: COMMON NORMALS: patient oriented x3 and moves all extremities SENSORIUM/ORIENTATION: Yes alert Skin: COMMON NORMALS: no rashes or lesions noted GENERAL SKIN EXAM: no rashes or lesions noted Data : 06/05/21 04:49 06/05/21 04:49 Micro: Microbiology 06/02/21 20:24 Urine Culture - Final Urine,Clean Catch A&P Assessment and plan (1) Chest pain: Post CABG, cardiac angiogram December 2019 showing chronically occluded RCA, ramus, proximal LAD with patent SVG to RCA and diagonal. Lexiscan results appreciated cardiology recommendations appreciated. Plan for cardiac angiogram tomorrow morning. N.p.o. after midnight. Continue with aspirin, increased dose of statin to 80 mg daily. Check lipid panel, A1c. Nitrate as needed. Status: Acute (2) Dyspnea on exertion: Most likely a combination of unstable angina secondary to CAD, obstructive sleep apnea exacerbation secondary to noncompliance to CPAP. For now continue with home dose of inhalers. Echocardiogram results appreciated. Showing EF of 48% with moderate diffuse hypokinesia septum and anteroseptal segments, RV looking mildly dilated. IV Lasix 40 mg daily. Monitors strict input output, daily weights, fluid restriction up to 1500 cc. Oxygen supplementation keeping saturation over 88%. Discussed in detail with patient regarding compliance with CPAP, possible resleep study to adjust CPAP settings. Patient verbalized understanding and is agreeable to follow-up. Minimal abnormality of D-dimer, 0.84. No unilateral leg edema. No cough, shortness of breath, on baseline oxygen. I believe probability of PE is low. At this time obtaining VQ scan may not be helpful given underlying COPD, and would interfere also with assessment by stress test. He is concerned regarding his renal function with consideration of CTA. Currently also not a candidate for anticoagulation given hematuria. Status: Acute (3) Chronic kidney disease: Creatinine currently appears close to baseline. Status: Acute (4) Sleep apnea: Should resume and continue CPAP Status: Acute Qualifiers: Sleep apnea type: unspecified type Qualified Code(s): G47.30 - Sleep apnea, unspecified (5) Coronary artery disease: Continue aspirin, beta-vee, statin. Status: Chronic Qualifiers: Coronary Disease-Associated Artery/Lesion type: bypass graft [place] vs. transplanted heart: [place] heart Associated angina: with unspecified angina Qualified Code(s): I25.709 - Atherosclerosis of coronary artery bypass graft(s), unspecified, with unspecified angina pectoris (6) COPD with hypoxia: Does not appear in exacerbation. Status: Acute (7) On home O2: Status: Acute Additional A&P Information DM2: Insulin HLD: Continue statin HTN: Continue metoprolol, monitor blood pressures BPH: Continue Flomax Plan for day: Continue with aspirin, statin. Cardiothoracic surgeon consultation for further management. Will follow recommendations. Oxygen supplementation keeping saturation over 88%. Stop Lasix secondary to mild LEANNA. Continue with gentle IV hydration while monitoring for fluid overload. Transfer to [facility]. Attestations Medical Necessity Statement*: Requires further hospitalization for management of hypoxia secondary to congestive heart failure, COPD exacerbation, ongoing angina equivalent in setting of CAD/post CABG. Time Spent in Patient Care: Greater than 35 minutes (>than 50% of time spent in counselling and/or direct pt care on unit). Coding Level of Care Code Acute Fire Prevention Captain for Adelaida Hayes Diagnoses Chest pain R07.9 Dyspnea on exertion R06.00 Chronic kidney disease N18.9 Sleep apnea G47.30 Sleep apnea type: unspecified type Coronary artery disease I25.709 Coronary Disease-Associated Artery/Lesion type: bypass graft [place] vs. transplanted heart: [place] heart Associated angina: with unspecified angina COPD with hypoxia J44.9; R09.02 On home O2 Z99.81
--- NOTE | 2021-06-05 14:29 | PM.PN ---
Subjective Subjective: Interval history: Patient continues to remain stable. No new symptoms. He continues to have significant dyspnea on exertion and exercise-induced chest tightness/heaviness. Medications: Reviewed: Yes Medication Review Details: Current Medications Acetaminophen (Acetaminophen 325 Mg Tablet) 650 mg PO Q6H PRN PRN Reason: Mild/Mod Pain Or Temp >/= 101 Hydrocodone Bitart/Acetaminophen (Hydrocodone-Acetaminophen 5-325 Mg Tablet) 1 tab PO Q4H PRN PRN Reason: pain Al Hydrox/Mg Hydrox/Simethicone (Eggn-Hdl-Pumbyipdl-Andriy 30 Ml Udc) 30 ml PO Q15M PRN PRN Reason: INDIGESTION Albuterol Sulfate (Albuterol 8 Gm Mdi) 2 puff INHALATION Q6H PRN PRN Reason: Wheezing Alprazolam (Alprazolam 0.5 Mg Tablet) 0.25 mg PO TID PRN PRN Reason: ANXIETY Aspirin (Aspirin 81 Mg Ec Tablet) 81 mg PO DAILY@0600 [facility] Last Admin: 06/05/21 05:32 Dose: 81 mg Documented by: Atorvastatin Calcium (Atorvastatin 40 Mg Tablet) 80 mg PO DAILY [facility] Atropine Sulfate (Atropine 1 Mg/Ml Sdv 1 Ml) 0.5 mg IVP PRN PRN PRN Reason: Symptomatic bradycardia Dextrose (Dextrose 50% Syringe 50 Ml) 25 ml IVP ONCE PRN; Protocol PRN Reason: hypoglycemia protocol Dextrose (Dextrose 50% Syringe 50 Ml) 50 ml IVP PRN PRN; Protocol PRN Reason: hypoglycemia protocol Dextrose (Dextrose 50% Syringe 50 Ml) 25 ml IVP ONCE PRN; Protocol PRN Reason: hypoglycemia protocol Dextrose (Dextrose 50% Syringe 50 Ml) 50 ml IVP PRN PRN; Protocol PRN Reason: hypoglycemia protocol Docusate Sodium (Docusate Sodium 100 Mg Capsule) 100 mg PO DAILY PRN PRN Reason: CONSTIPATION Last Admin: 06/04/21 20:46 Dose: 100 mg Documented by: Enoxaparin Sodium (Enoxaparin 40 Mg/0.4 Ml Syringe) 40 mg SUBCUT Q24H [facility] Last Admin: 06/04/21 18:42 Dose: 40 mg Documented by: Gabapentin (Gabapentin 100 Mg Capsule) 300 mg PO TID@06,12,18 [facility] Last Admin: 06/05/21 12:39 Dose: 300 mg Documented by: Glucagon (Glucagon 1 Mg/Ml Inj 1 Ml) 1 mg IM ONCE PRN; Protocol PRN Reason: Adult Acute Hypoglycemia Prot. Glucagon (Glucagon 1 Mg/Ml Inj 1 Ml) 1 mg IM ONCE PRN; Protocol PRN Reason: Adult Acute Hypoglycemia Prot. Dextrose (D5w) 500 mls @ 100 mls/hr IV ONCE PRN; Protocol PRN Reason: Adult Acute Hypoglycemia Prot Dextrose (D5w) 500 mls @ 100 mls/hr IV ONCE PRN; Protocol PRN Reason: Adult Acute Hypoglycemia Prot Sodium Chloride (Sodium Chloride 0.9%) 1,000 mls @ 50 mls/hr IV .Q20H ONE Stop: 06/06/21 00:59 Last Admin: 06/05/21 05:32 Dose: 50 mls/hr Documented by: Insulin Glargine (Insulin Glargine 100 Units/1 Ml) 50 unit SUBCUT DAILY@0600 [facility] Last Admin: 06/05/21 09:43 Dose: 50 unit Documented by: Insulin Human Lispro (Insulin Lispro 100 Unit/1 Ml) 0 unit SUBCUT WM&BEDTIME [facility]; Protocol Last Admin: 06/05/21 11:46 Dose: Not Given Documented by: Magnesium Hydroxide (Magnesium Hydroxide 30 Ml Udc) 30 ml PO DAILY PRN PRN Reason: CONSTIPATION Metoprolol Tartrate (Metoprolol Tartrate 25 Mg Tablet) 50 mg PO BID@0600,1800 [facility] Last Admin: 06/05/21 05:32 Dose: 50 mg Documented by: Naloxone HCl (Naloxone 0.4 Mg/Ml Sdv) 0.1 mg IVP Q2M PRN PRN Reason: RESPIRATORY RATE < 8/MIN Nitroglycerin (Nitroglycerin 0.4 Mg Sublingual Tablet) 0.4 mg SUBLINGUAL Q5M PRN PRN Reason: CHEST PAIN Ondansetron HCl (Ondansetron 2 Mg/Ml Sdv 2 Ml) 4 mg IVP Q2M PRN PRN Reason: NAUSEA Fluticasone/Salmeterol (Fluticasone-Salmeterol 250-50 Diskus) 2 puff INHALATION BID [facility] Last Admin: 06/04/21 19:52 Dose: 2 puff Documented by: Tamsulosin HCl (Tamsulosin 0.4 Mg Capsule) 0.4 mg PO DAILY [facility] Last Admin: 06/04/21 10:12 Dose: 0.4 mg Documented by: Temazepam (Temazepam 15 Mg Capsule) 15 mg PO BEDTIME PRN PRN Reason: INSOMNIA Vitamin D (Cholecalciferol (Vitamin D3) 1,000 Unit Tablet) 2,000 unit PO DAILY@0600 [facility] Last Admin: 06/05/21 05:32 Dose: 2,000 unit Documented by: Vitals/I&O/Wt Last Vital Signs Temp 97.8 F 06/04/21 15:26 Pulse 66 06/05/21 14:00 Resp 18 06/05/21 13:50 BP 118/59 06/05/21 12:30 Pulse Ox 91 06/05/21 13:50 06/04/21 06/05/21 06/05/21 22:59 06:59 14:59 Intake Total 360 / 480 0 / 480 240 / 240 Output Total 300 / 300 Balance 360 / 480 0 / 480 -60 / -60 Weight last 48 hrs Weight 276 lb 3.2 oz Physical Exam Narrative: EXAM NARRATIVE: GENERAL: The patient is alert and oriented times three. Not in any acute distress. Morbidly obese HEENT: No significant pallor, icterus or lymphadenopathy. The pupils are symmetrical. Oral cavity: There are no mucous membrane lesions. NECK: Trachea appears to be central. No masses noted. No JVD or thyromegaly appreciated. No carotid bruit. RESPIRATORY: Chest is symmetrical. No intercostals muscle retraction or any accessory muscle activation. There is no chest wall tenderness. Breath sounds are heard bilaterally. Diagnosis of breath sounds are diminished in the bases. Occasional expiratory wheezing BREASTS: Deferred. HEART: The PMI could not be palpated . no palpable precordial events. S1 and S2 are normal. No S3 or S4 heard. No pericardial rub or any click heard. Short systolic murmur in the left sternal border. No diastolic murmurs ABDOMEN: Abdomen is obese. No vessel pulsations or distention. No tenderness. No organomegaly appreciated. No abdominal bruit. Bowel sounds are normally heard. : Deferred. RECTAL: Deferred. LYMPHATIC: No lymphadenopathy noted in the neck or groin. EXTREMITIES: No edema cyanosis. Peripheral pulses are palpable but somewhat weak bilaterally. MUSCULOSKELETAL: No acute joint deformities or swelling SKIN: There are no significant scars or skin rash noted. NEUROPSYCHIATRIC: No focal motor deficits Data : 06/05/21 04:49 06/05/21 04:49 Other Labs: Laboratory Last Values WBC 10.4 10^3/uL (4.0-10.0) H 06/05/21 04:49 RBC 4.81 10^6/uL (4.1-5.3) 06/05/21 04:49 Hgb 15.6 g/dL (11.7-16.6) 06/05/21 04:49 Hct 46.5 % (42.0-52.0) 06/05/21 04:49 MCV 96.7 fl (80-94) H 06/05/21 04:49 MCH 32.4 pg (28.0-34.0) 06/05/21 04:49 MCHC 33.5 g/dL (30.0-36.0) 06/05/21 04:49 RDW 13.8 % (12.1-15.1) 06/05/21 04:49 Plt Count 164 10^3/cmm (130-400) 06/05/21 04:49 MPV 10.5 fL (7.4-10.4) H 06/05/21 04:49 Neut % (Auto) 59.9 % 06/05/21 04:49 Lymph % (Auto) 28.5 % 06/05/21 04:49 [place] % (Auto) 5.8 % 06/05/21 04:49 Eos % (Auto) 5.0 % 06/05/21 04:49 Baso % (Auto) 0.5 % 06/05/21 04:49 Neut # (Auto) 6.20 10^3/uL (1.8-7.7) 06/05/21 04:49 Lymph # (Auto) 3.0 10^3/uL (0.8-4.8) 06/05/21 04:49 [place] # (Auto) 0.6 10^3/uL (0.2-0.9) 06/05/21 04:49 Eos # (Auto) 0.5 10^3/uL (0.0-0.8) 06/05/21 04:49 Baso # (Auto) 0.1 10^3/uL (0.0-0.1) 06/05/21 04:49 Nucleated RBC % (auto) 0 % 06/05/21 04:49 Nucleated RBCs # 0.0 /100WBC 06/05/21 04:49 D-Dimer 0.84 ug/mIFEU (0-0.59) H 06/02/21 12:38 Sodium 137 mmol/L (136-145) 06/05/21 04:49 Potassium 4.1 mmol/L (3.5-5.1) 06/05/21 04:49 Chloride 97 mmol/L (98-107) L 06/05/21 04:49 Carbon Dioxide 24 mmol/L (22-29) 06/05/21 04:49 Anion Gap 20.1 (5-19) H 06/05/21 04:49 BUN 24 mg/dL (8-23) H 06/05/21 04:49 Creatinine 1.4 mg/dL (0.7-1.2) H 06/05/21 04:49 GFR Calculation Not Reportable 06/05/21 04:49 Glucose 175 mg/dL (65-115) H 06/05/21 04:49 POC Glucose 135 mg/dL (70-110) H 06/05/21 11:42 Estimat Average Glucose 197 06/04/21 05:06 Hemoglobin A1c 8.5 % (4.0-6.0) H 06/04/21 05:06 Calculated Osmolality 292 mOsm/kg (285-295) 06/05/21 04:49 Calcium 8.8 mg/dL (8.5-10.5) 06/05/21 04:49 Total Bilirubin 0.7 mg/dL (0.15-1.2) 06/05/21 04:49 AST 15 U/L (0-40) 06/05/21 04:49 ALT 11 U/L (0-41) 06/05/21 04:49 Alkaline Phosphatase 67 IU/L (40-130) 06/05/21 04:49 Creatine Kinase 153 U/L (39-308) 06/02/21 12:38 Troponin T Baseline 33 ng/L (0-15) H 06/02/21 12:38 Troponin T 120 Minute 39.03 ng/L (0-15) H 06/02/21 14:48 Delta Troponin T 6.03 ABS# (0-10) 06/02/21 14:48 Troponin T Hi Sens 6Hr 33.32 ng/L (0-15) H 06/02/21 18:22 Troponin T Hi Sens 6Hr Delta 0.32 ng/L (0-12) 06/02/21 18:22 NT-Pro-B Natriuret Pep 210 pg/mL (0-125) H 06/02/21 12:38 Total Protein 6.4 g/dL (6.6-8.7) L 06/05/21 04:49 Albumin 3.9 g/dL (3.5-5.2) 06/05/21 04:49 Globulin 2.5 g/dL (1.3-4.6) 06/05/21 04:49 Triglycerides 236 mg/dL (0-150) H 06/04/21 05:06 Cholesterol 226 mg/dL (0-200) H 06/04/21 05:06 LDL Cholesterol, Calc 149 mg/dL (50-129) H 06/04/21 05:06 Total VLDL Cholesterol 47 mg/dL (0-30) H 06/04/21 05:06 HDL Cholesterol 30 mg/dL (60-100) L 06/04/21 05:06 Cholesterol/HDL Ratio 7.53 mg/dL (1.0-5.00) H 06/04/21 05:06 Lipase 21 U/L (13-60) 06/02/21 12:38 Urine Color Minnie (Yellow) 06/02/21 20:24 Urine Appearance Hazy (CLEAR) A 06/02/21 20:24 Urine pH 5 (5-7) 06/02/21 20:24 Ur Specific [place] 1.020 (1.005-1.030) 06/02/21 20:24 Urine Protein Trace (Negative) 06/02/21 20:24 Urine Glucose (UA) 4+ (Normal) H 06/02/21 20:24 Urine Ketones Negative (Negative) 06/02/21 20:24 Urine Blood 3+ (Negative) H 06/02/21 20:24 Urine Nitrate Negative (Negative) 06/02/21 20:24 Urine Bilirubin Neg (Negative) 06/02/21 20:24 Urine Urobilinogen Norm mg/dL (Negative) 06/02/21 20:24 Ur Leukocyte Esterase 1+ (Negative) H 06/02/21 20:24 Urine RBC >100 /hpf (0-2) H 06/02/21 20:24 Urine WBC 5-10 /hpf (0-5) H 06/02/21 20:24 Ur Squamous Epith Cells 0-4 /hpf (0-5) H 06/02/21 20:24 Amorphous Sediment Not Reportable 06/02/21 20:24 Urine Bacteria Trace /hpf (NONE) 06/02/21 20:24 Urine Yeast 1+ /hpf H 06/02/21 20:24 Micro: Microbiology 06/02/21 20:24 Urine Culture - Final Urine,Clean Catch A&P Assessment and plan (1) Atypical chest pain: In view of the patient's ongoing chest pains, limiting his activities, in order to further evaluate his coronary status, a cardiac catheterization would be appropriate. Status: Acute (2) Dyspnea on exertion: The patient shortness of breath and chest tightness, could be related to underlying coronary ischemia. Status: Acute (3) Elevated troponin: In view of the abnormal myocardial perfusion imaging, it is possible that the patient might have had a non-ST elevation myocardial infarction/type II SC. His EKG is unremarkable. Status: Acute (4) Atherosclerotic heart disease of [place] coronary artery with other forms of angina pectoris: For further evaluation of his coronary status as well as the graft status, cardiac catheterization would be appropriate. A myocardial perfusion may results are discussed with the patient in detail with its implication. Patient is wanting to go ahead with the angiogram. The risk of bleeding, hematoma, vascular injury, myocardial infarction, CVA, renal failure and other concomitant complications were explained in detail. She understood this well and consented to proceed. Because of the patient's chronic kidney disease, he carries a high risk for contrast-induced nephropathy. So discussed with the patient which he understood well. Status: Acute (5) COPD (chronic obstructive pulmonary disease): May continue on the current treatment. Status: Acute Qualifiers: COPD type: unspecified COPD Qualified Code(s): J44.9 - Chronic obstructive pulmonary disease, unspecified (6) Benign essential hypertension with target blood pressure below 140/90: Only the blood pressure is under control. Status: Acute (7) Dyslipidemia: Continue on the current medications. Status: Acute (8) Chronic kidney disease: Patient is kidney function is almost at his baseline. He carries a high risk for contrast-induced nephropathy. This was discussed and understood by the patient. Status: Acute Qualifiers: Chronic kidney disease stage: stage 2 (mild) Qualified Code(s): N18.2 - Chronic kidney disease, stage 2 (mild) Additional A&P Information Addendum Patient underwent left heart cath Patient underwent left heart catheterization with a left and right coronary angiogram, and graft angiogram. He was found to have a high-grade lesion in the mid LAD distal to the anastomosis. Patent sequential venous graft to the LAD and the diagonal. Patent graft to the RCA. BOSWELL was found to be atretic based on the previous angiogram. The coronary lesion was found to be complex to intervene, after reviewed by Dr Kaur and Dr Schaffer. So it was recommended to have complex coronary intervention to be performed at a high-volume facility. I contacted Dr. Bates at the [facility]. Dr. Bates accepted his transfer for further management. Attestations Medical Necessity Statement*: Patient requires continued hospital stay for close monitoring and further management Coding Level of Care Code Acute [facility] Fwd Diagnoses Atypical chest pain R07.89 Dyspnea on exertion R06.00 Elevated troponin R77.8 Atherosclerotic heart disease of [place] coronary artery with other forms of angina pectoris I25.118 COPD (chronic obstructive pulmonary disease) J44.9 COPD type: unspecified COPD Benign essential hypertension with target blood pressure below 140/90 I10 Dyslipidemia E78.5 Chronic kidney disease N18.2 Chronic kidney disease stage: stage 2 (mild)
--- NOTE | 2021-06-05 14:34 | PM.TDS ---
Transfer Summary Providers Date of Admission: 06/04/21 18:35 Date of Discharge: 06/05/21 Attending Provider at Admission: Steve Barnes Attending Provider at Transfer: Erick Rushing MD Primary Care Provider: Radha Blevins MD Anticipated Date of Transfer: Anticipated date of transfer: 06/05/21 Receiving Facility & Provider: Receiving Provider: [] Receiving facility: [] Diagnoses at Discharge Discharge Diagnosis (1) Chest pain: Status: Acute (2) Dyspnea on exertion: Status: Acute (3) Chronic kidney disease: Status: Acute (4) Sleep apnea: Status: Acute Permanent problem details: On CPAP Qualifiers: Sleep apnea type: unspecified type Qualified Code(s): G47.30 - Sleep apnea, unspecified (5) Coronary artery disease: Status: Chronic Permanent problem details: CABG x 4 in 2011, history of sternal nonunion. Qualifiers: Coronary Disease-Associated Artery/Lesion type: bypass graft [place] vs. transplanted heart: [place] heart Associated angina: with unspecified angina Qualified Code(s): I25.709 - Atherosclerosis of coronary artery bypass graft(s), unspecified, with unspecified angina pectoris (6) COPD with hypoxia: Status: Acute (7) On home O2: Status: Acute Reason for Visit Reason for Visit: CHEST PAIN Hospital Course Hospital Course Ambrose Villa is a 75 year old male with a history of coronary disease, status post four-vessel coronary bypass surgery, is presenting with complaints of progressive shortness of breath and cough. He also is complaining of mid substernal chest tightness/heaviness. He was found to have elevated troponin T. This patient is known to have severe three-vessel coronary disease and had four-vessel coronary bypass surgery approximately 7 years ago here at the [facility]. Patient had a nonhealing sternal wound following the surgery. He had some wound complications and finally ended up in having a surgery with some reinforcement of the sternal region. According to the patient, ever since this surgery, he has been having some amount of tight/heaviness in the chest. He also was having some amount of dyspnea exertion. Lately the shortness of breath is getting worse. Even with minimal activities, he gets short of breath. He has associated tight feeling in the lower substernal region which may radiate across the chest and at times to the left arm and shoulder. He has no associated nausea vomiting. No sweating, dizziness or syncopal episodes. No fever or chills. He has been having a cough which is mostly nonproductive. No other specific complaints. Patient has a history of sleep apnea and COPD. He is on home oxygen, 4 L/min by nasal cannula, uses intermittently. He also is known to have obstructive sleep apnea. He is on CPAP. He has a history of high blood pressure, type 2 diabetes and dyslipidemia. No history for any significant peripheral arterial disease. Has history of chronic kidney disease and is being followed by the oil distributor tender. He has not required any hemodialysis so far. Patient admitted to hospital for further management of hypoxia, angina equivalent. Cardiology was consulted and patient underwent Lexiscan stress test on 06/04 which was concerning for more than 30% of ischemic burden. Echocardiogram was done which showed an EF of 48% with moderate diffuse hypokinesia septum and anteroseptal de anda. Given new drop in LV ejection fraction and positive stress test patient underwent cardiac catheterization on 06/05 which revealed a patent vein graft to RCA and vein graft to diagonal and antegrade flow to LAD with mid distal lesion. Given the above cardiothoracic surgery consult was done. Because of complexity of the lesion it was recommended for patient to be transferred to tertiary center with high-volume. Patient was discussed with Dr. Bates from [facility] and patient has been discharged in hemodynamically stable condition. Patient has remained chest pain-free during hospitalization. Physical Exam Narrative: EXAM NARRATIVE: Family with him in the room. Const: COMMON NORMALS: no acute distress, patient oriented x3 and alert GENERAL APPEARANCE: cooperative NUTRITIONAL APPEARANCE: obese ORIENTATION/CONSCIOUSNESS: Yes awake HENMT: COMMON NORMALS: oropharynx normal Neck/C-Spine: COMMON NORMALS: no JVD Resp: COMMON NORMALS: normal respiratory effort and clear to auscultation bilaterally AUSCULTATION: clear to auscultation bilaterally Cardio: COMMON NORMALS: no JVD, regular rhythm, S1 normal heart sound present, S2 normal heart sound present and No murmurs present (Cardio) RHYTHM: regular rhythm HEART SOUNDS: S1 normal heart sound present and S2 normal heart sound present GI: COMMON NORMALS: Normal to inspection, nondistended, normoactive bowel sounds present, Soft to palpation and non-tender PALPATION: Yes Soft to palpation Extremity: COMMON NORMALS: no joint enlargement GENERAL: Yes edema (1+) Neuro: COMMON NORMALS: patient oriented x3 and moves all extremities SENSORIUM/ORIENTATION: Yes alert Skin: COMMON NORMALS: no rashes or lesions noted GENERAL SKIN EXAM: no rashes or lesions noted TS Data Data Completed and Pending: Completed Studies During Hospitalization Category Date Time Status CT kidney stone 7 [id number] Routine Cat Scan 06/03/21 09:34 Completed Sestamibi Stress Test Request Routi ne Exams 06/04/21 08:00 Draft XR chest 1V drew ble [id number] Urgent Exams 06/02/21 12:26 Completed NM cooper perf SPECT r/s* [id number] Routin e Nuc Med 06/04/21 14:46 Completed CV. echo limited [id number] Routine Ultrasound 06/03/21 20:23 Completed Pending at discharge Category Date Time Status WEIGHT TESTER request for service Routin e Exams 06/05/21 05:49 Taken Complete Blood Co unt w/Auto AM LABS Lab 06/06/21 04:00 Ordered Comprehensive Met abolic Panel AM LA BS Lab 06/06/21 04:00 Ordered Labs from last 24 hours 06/05/21 06/05/21 06/05/21 11:42 07:12 04:49 WBC RBC Hgb Hct MCV MCH MCHC RDW Plt Count MPV Neut % (Auto) Lymph % (Auto) Henderson % (Auto) Eos % (Auto) Baso % (Auto) Neut # (Auto) Lymph # (Auto) Henderson # (Auto) Eos # (Auto) Baso # (Auto) Nucleated RBC % (a uto) Nucleated RBCs # Sodium 137 Potassium 4.1 Chloride 97 L Carbon Dioxide 24 Anion Gap 20.1 H BUN 24 H Creatinine 1.4 H GFR Calculation Not Reportable Glucose 175 H POC Glucose 135 H 179 H Calculated Osmolal ity 292 Calcium 8.8 Total Bilirubin 0.7 AST 15 ALT 11 Alkaline Phosphata se 67 Total Protein 6.4 L Albumin 3.9 Globulin 2.5 06/05/21 06/04/21 06/04/21 04:49 20:11 16:54 WBC 10.4 H RBC 4.81 Hgb 15.6 Hct 46.5 MCV 96.7 H MCH 32.4 MCHC 33.5 RDW 13.8 Plt Count 164 MPV 10.5 H Neut % (Auto) 59.9 Lymph % (Auto) 28.5 Henderson % (Auto) 5.8 Eos % (Auto) 5.0 Baso % (Auto) 0.5 Neut # (Auto) 6.20 Lymph # (Auto) 3.0 Henderson # (Auto) 0.6 Eos # (Auto) 0.5 Baso # (Auto) 0.1 Nucleated RBC % (a uto) 0 Nucleated RBCs # 0.0 Sodium Potassium Chloride Carbon Dioxide Anion Gap BUN Creatinine GFR Calculation Glucose POC Glucose 257 H 176 H Calculated Osmolal ity Calcium Total Bilirubin AST ALT Alkaline Phosphata se Total Protein Albumin Globulin 06/02/21 22:14 WBC RBC Hgb Hct MCV MCH MCHC RDW Plt Count MPV Neut % (Auto) Lymph % (Auto) Henderson % (Auto) Eos % (Auto) Baso % (Auto) Neut # (Auto) Lymph # (Auto) Henderson # (Auto) Eos # (Auto) Baso # (Auto) Nucleated RBC % (a uto) Nucleated RBCs # Sodium Potassium Chloride Carbon Dioxide Anion Gap BUN Creatinine GFR Calculation Glucose POC Glucose 98 Calculated Osmolal ity Calcium Total Bilirubin AST ALT Alkaline Phosphata se Total Protein Albumin Globulin Addt'l Data from Hospital Stay: Laboratory Results WBC 10.4 10^3/uL (4.0 -10.0) H 06/05/21 04:49 RBC 4.81 10^6/uL (4.1 -5.3) 06/05/21 04:49 Hgb 15.6 g/dL (11.7-1 6.6) 06/05/21 04:49 Hct 46.5 % (42.0-52.0 ) 06/05/21 04:49 MCV 96.7 fl (80-94) H 06/05/21 04:49 MCH 32.4 pg (28.0-34. 0) 06/05/21 04:49 MCHC 33.5 g/dL (30.0-3 6.0) 06/05/21 04:49 RDW 13.8 % (12.1-15.1 ) 06/05/21 04:49 Plt Count 164 10^3/cmm (130 -400) 06/05/21 04:49 MPV 10.5 fL (7.4-10.4 ) H 06/05/21 04:49 Neut % (Auto) 59.9 % 06/05/21 04:49 Lymph % (Auto) 28.5 % 06/05/21 04:49 Henderson % (Auto) 5.8 % 06/05/21 04:49 Eos % (Auto) 5.0 % 06/05/21 04:49 Baso % (Auto) 0.5 % 06/05/21 04:49 Neut # (Auto) 6.20 10^3/uL (1.8 -7.7) 06/05/21 04:49 Lymph # (Auto) 3.0 10^3/uL (0.8- 4.8) 06/05/21 04:49 Henderson # (Auto) 0.6 10^3/uL (0.2- 0.9) 06/05/21 04:49 Eos # (Auto) 0.5 10^3/uL (0.0- 0.8) 06/05/21 04:49 Baso # (Auto) 0.1 10^3/uL (0.0- 0.1) 06/05/21 04:49 Nucleated RBC % (a uto) 0 % 06/05/21 04:49 Nucleated RBCs # 0.0 /100WBC 06/05/21 04:49 D-Dimer 0.84 ug/mIFEU (0- 0.59) H 06/02/21 12:38 Sodium 137 mmol/L (136-1 45) 06/05/21 04:49 Potassium 4.1 mmol/L (3.5-5 .1) 06/05/21 04:49 Chloride 97 mmol/L (98-107 ) L 06/05/21 04:49 Carbon Dioxide 24 mmol/L (22-29) 06/05/21 04:49 Anion Gap 20.1 (5-19) H 06/05/21 04:49 BUN 24 mg/dL (8-23) H 06/05/21 04:49 Creatinine 1.4 mg/dL (0.7-1. 2) H 06/05/21 04:49 GFR Calculation Not Reportable 06/05/21 04:49 Glucose 175 mg/dL (65-115 ) H 06/05/21 04:49 POC Glucose 135 mg/dL (70-110 ) H 06/05/21 11:42 Estimat Average Gl ucose 197 06/04/21 05:06 Hemoglobin A1c 8.5 % (4.0-6.0) H 06/04/21 05:06 Calculated Osmolal ity 292 mOsm/kg (285- 295) 06/05/21 04:49 Calcium 8.8 mg/dL (8.5-10 .5) 06/05/21 04:49 Total Bilirubin 0.7 mg/dL (0.15-1 .2) 06/05/21 04:49 AST 15 U/L (0-40) 06/05/21 04:49 ALT 11 U/L (0-41) 06/05/21 04:49 Alkaline Phosphata se 67 IU/L (40-130) 06/05/21 04:49 Creatine Kinase 153 U/L (39-308) 06/02/21 12:38 Troponin T Baselin e 33 ng/L (0-15) H 06/02/21 12:38 Troponin T 120 Min rose mary 39.03 ng/L (0-15) H 06/02/21 14:48 Delta Troponin T 6.03 ABS# (0-10) 06/02/21 14:48 Troponin T Hi Sens 6Hr 33.32 ng/L (0-15) H 06/02/21 18:22 Troponin T Hi Sens 6Hr Delta 0.32 ng/L (0-12) 06/02/21 18:22 NT-Pro-B Natriuret Pep 210 pg/mL (0-125) H 06/02/21 12:38 Total Protein 6.4 g/dL (6.6-8.7 ) L 06/05/21 04:49 Albumin 3.9 g/dL (3.5-5.2 ) 06/05/21 04:49 Globulin 2.5 g/dL (1.3-4.6 ) 06/05/21 04:49 Triglycerides 236 mg/dL (0-150) H 06/04/21 05:06 Cholesterol 226 mg/dL (0-200) H 06/04/21 05:06 LDL Cholesterol, C alc 149 mg/dL (50-129 ) H 06/04/21 05:06 Total VLDL Cholest fabian 47 mg/dL (0-30) H 06/04/21 05:06 HDL Cholesterol 30 mg/dL (60-100) L 06/04/21 05:06 Cholesterol/HDL Ra sudheer 7.53 mg/dL (1.0-5 .00) H 06/04/21 05:06 Lipase 21 U/L (13-60) 06/02/21 12:38 Urine Color Minnie (Yellow) 06/02/21 20:24 Urine Appearance Hazy (CLEAR) A 06/02/21 20:24 Urine pH 5 (5-7) 06/02/21 20:24 Ur Specific Gravit y 1.020 (1.005-1.0 30) 06/02/21 20:24 Urine Protein Trace (Negative) 06/02/21 20:24 Urine Glucose (UA) 4+ (Normal) H 06/02/21 20:24 Urine Ketones Negative (Negati ve) 06/02/21 20:24 Urine Blood 3+ (Negative) H 06/02/21 20:24 Urine Nitrate Negative (Negati ve) 06/02/21 20:24 Urine Bilirubin Neg (Negative) 06/02/21 20:24 Urine Urobilinogen Norm mg/dL (Negat oswaldo) 06/02/21 20:24 Ur Leukocyte Neida ase 1+ (Negative) H 06/02/21 20:24 Urine RBC >100 /hpf (0-2) H 06/02/21 20:24 Urine WBC 5-10 /hpf (0-5) H 06/02/21 20:24 Ur Squamous Epith Cells 0-4 /hpf (0-5) H 06/02/21 20:24 Amorphous Sediment Not Reportable 06/02/21 20:24 Urine Bacteria Trace /hpf (NONE) 06/02/21 20:24 Urine Yeast 1+ /hpf H 06/02/21 20:24 Impressions Chest X-Ray 06/02/21 12:26 IMPRESSION: No acute findings. Abdomen/Pelvis CT 06/03/21 09:34 IMPRESSION: 1. 4 mm nodule right middle lobe series 2, image 2. Consider followup twelve-month CT chest to further define. (Brennan et al., Fleischner Society, 2017) 2. Bibasilar subpleural reticular opacities with associated traction bronchiectasis and bronchiolectasis. This finding is stable when compared to the prior exam. 3. 2.3 cm Right kidney cyst incompletely evaluated due to no IV contrast. This finding is stable when compared to the prior exam. 4. No renal, ureteral, nor bladder calculi detected. 5. No acute intra-abdominal pathology. 6. Dilated infrarenal abdominal aorta measured at 2.7 cm. This finding is stable when compared to the prior exam. Follow-up imaging in 5 years is recommended. 7. Colonic diverticulosis is present without diverticulitis. 8. Postsurgical changes noted to the left upper abdominal wall with irregular calcific nodules in the left epicardial fat unchanged from the prior exam and are most likely postsurgical represent fat necrosis. Echocardiogram: CONCLUSIONS LV size with diminished ejection fraction of 48%. Moderate diffuse hypokinesia of the septum and anteroseptal segments. Right ventricle appears to be mildly dilated with normal ejection fraction. The aortic and mitral valves morphology appear to be in normal limits. There is no pericardial effusion. There are no intracardiac masses. Compared to the study from 02/21/2021, there seems to be a drop in the LV ejection fraction. But because of the difference in technical quality, the comparison is difficult(the previous study was at the echo contrast). Dr Hansa Humphrey MD [facility] (Electronically Signed) Final Date: 03 June 2021 16:22 S Vitals: Last Vital Signs Temp 97.8 F 06/04/21 15:26 Pulse 66 06/05/21 14:00 Resp 18 06/05/21 13:50 BP 118/59 06/05/21 12:30 Pulse Ox 91 06/05/21 13:50 TS Medications Medications Home Medications albuterol sulfate 2 puff INHALATION Q6H PRN 07/15/19 [History Confirmed 06/02/21] aspirin 81 mg PO DAILY@0600 07/15/19 [History Confirmed 06/02/21] budesonide-formoterol [Symbicort] 2 puff INHALATION BID PRN 07/15/19 [History Confirmed 06/02/21] glipizide 10 mg PO BID@0600,1800 07/15/19 [History Confirmed 06/02/21] insulin glargine 100 unit/mL subcutaneous solution 50 unit SUBCUT DAILY@0600 ml 07/19/19 [History Confirmed 06/02/21] alogliptin 25 mg tablet 12.5 mg PO BID 12/29/19 [History Confirmed 06/02/21] metoprolol tartrate 25 mg tablet 50 mg PO BID@0600,1800 tab 12/29/19 [History Confirmed 06/02/21] furosemide 20 mg PO DAILY@0600 09/20/20 [History Confirmed 06/02/21] tamsulosin [Flomax] 0.4 mg PO DAILY #14 cap 02/03/21 [Rx Confirmed 06/02/21] cholecalciferol (vitamin D3) [Vitamin D3] 50 mcg PO DAILY@0600 02/20/21 [History Confirmed 06/02/21] pravastatin 40 mg PO DAILY 02/20/21 [History Confirmed 06/02/21] gabapentin 300 mg PO TID@06,12,18 06/02/21 [History Confirmed 06/02/21] hydrocodone-acetaminophen 1 tab PO Q4H PRN 06/02/21 [History Confirmed 06/02/21] potassium chloride 40 meq PO DAILY 06/02/21 [History Confirmed 06/02/21] Active Medications Acetaminophen (Acetaminophen 325 Mg Tablet) 650 mg PO Q6H PRN PRN Reason: Mild/Mod Pain Or Temp >/= 101 Hydrocodone Bitart/Acetaminophen (Hydrocodone-Acetaminophen 5-325 Mg Tablet) 1 tab PO Q4H PRN PRN Reason: pain Al Hydrox/Mg Hydrox/Simethicone (Ihai-Uqr-Iriqtolbw-Andriy 30 Ml Udc) 30 ml PO Q15M PRN PRN Reason: INDIGESTION Albuterol Sulfate (Albuterol 8 Gm Mdi) 2 puff INHALATION Q6H PRN PRN Reason: Wheezing Alprazolam (Alprazolam 0.5 Mg Tablet) 0.25 mg PO TID PRN PRN Reason: ANXIETY Aspirin (Aspirin 81 Mg Ec Tablet) 81 mg PO DAILY@0600 [facility] Last Admin: 06/05/21 05:32 Dose: 81 mg Documented by: Atorvastatin Calcium (Atorvastatin 40 Mg Tablet) 80 mg PO DAILY [facility] Atropine Sulfate (Atropine 1 Mg/Ml Sdv 1 Ml) 0.5 mg IVP PRN PRN PRN Reason: Symptomatic bradycardia Dextrose (Dextrose 50% Syringe 50 Ml) 25 ml IVP ONCE PRN; Protocol PRN Reason: hypoglycemia protocol Dextrose (Dextrose 50% Syringe 50 Ml) 50 ml IVP PRN PRN; Protocol PRN Reason: hypoglycemia protocol Dextrose (Dextrose 50% Syringe 50 Ml) 25 ml IVP ONCE PRN; Protocol PRN Reason: hypoglycemia protocol Dextrose (Dextrose 50% Syringe 50 Ml) 50 ml IVP PRN PRN; Protocol PRN Reason: hypoglycemia protocol Docusate Sodium (Docusate Sodium 100 Mg Capsule) 100 mg PO DAILY PRN PRN Reason: CONSTIPATION Last Admin: 06/04/21 20:46 Dose: 100 mg Documented by: Enoxaparin Sodium (Enoxaparin 40 Mg/0.4 Ml Syringe) 40 mg SUBCUT Q24H [facility] Last Admin: 06/04/21 18:42 Dose: 40 mg Documented by: Gabapentin (Gabapentin 100 Mg Capsule) 300 mg PO TID@06,12,18 [facility] Last Admin: 06/05/21 12:39 Dose: 300 mg Documented by: Glucagon (Glucagon 1 Mg/Ml Inj 1 Ml) 1 mg IM ONCE PRN; Protocol PRN Reason: Adult Acute Hypoglycemia Prot. Glucagon (Glucagon 1 Mg/Ml Inj 1 Ml) 1 mg IM ONCE PRN; Protocol PRN Reason: Adult Acute Hypoglycemia Prot. Dextrose (D5w) 500 mls @ 100 mls/hr IV ONCE PRN; Protocol PRN Reason: Adult Acute Hypoglycemia Prot Dextrose (D5w) 500 mls @ 100 mls/hr IV ONCE PRN; Protocol PRN Reason: Adult Acute Hypoglycemia Prot Sodium Chloride (Sodium Chloride 0.9%) 1,000 mls @ 50 mls/hr IV .Q20H ONE Stop: 06/06/21 00:59 Last Admin: 06/05/21 05:32 Dose: 50 mls/hr Documented by: Insulin Glargine (Insulin Glargine 100 Units/1 Ml) 50 unit SUBCUT DAILY@0600 [facility] Last Admin: 06/05/21 09:43 Dose: 50 unit Documented by: Insulin Human Lispro (Insulin Lispro 100 Unit/1 Ml) 0 unit SUBCUT WM&BEDTIME [facility]; Protocol Last Admin: 06/05/21 11:46 Dose: Not Given Documented by: Magnesium Hydroxide (Magnesium Hydroxide 30 Ml Udc) 30 ml PO DAILY PRN PRN Reason: CONSTIPATION Metoprolol Tartrate (Metoprolol Tartrate 25 Mg Tablet) 50 mg PO BID@0600,1800 [facility] Last Admin: 06/05/21 05:32 Dose: 50 mg Documented by: Naloxone HCl (Naloxone 0.4 Mg/Ml Sdv) 0.1 mg IVP Q2M PRN PRN Reason: RESPIRATORY RATE < 8/MIN Nitroglycerin (Nitroglycerin 0.4 Mg Sublingual Tablet) 0.4 mg SUBLINGUAL Q5M PRN PRN Reason: CHEST PAIN Ondansetron HCl (Ondansetron 2 Mg/Ml Sdv 2 Ml) 4 mg IVP Q2M PRN PRN Reason: NAUSEA Fluticasone/Salmeterol (Fluticasone-Salmeterol 250-50 Diskus) 2 puff INHALATION BID [facility] Last Admin: 06/04/21 19:52 Dose: 2 puff Documented by: Tamsulosin HCl (Tamsulosin 0.4 Mg Capsule) 0.4 mg PO DAILY [facility] Last Admin: 06/04/21 10:12 Dose: 0.4 mg Documented by: Temazepam (Temazepam 15 Mg Capsule) 15 mg PO BEDTIME PRN PRN Reason: INSOMNIA Vitamin D (Cholecalciferol (Vitamin D3) 1,000 Unit Tablet) 2,000 unit PO DAILY@0600 [facility] Last Admin: 06/05/21 05:32 Dose: 2,000 unit Documented by: Discharge Plan Discharge Condition: Stable Prescriptions: No Action tamsulosin [Flomax] 0.4 mg capsule 0.4 mg PO DAILY Qty: 14 RF: 0 albuterol sulfate 90 mcg/actuation Hfa Aerosol Inhaler 2 puff INHALATION Q6H PRN (Reason: Wheezing) RF: 0 budesonide-formoterol [Symbicort] 160-4.5 mcg/actuation Hfa Aerosol Inhaler 2 puff INHALATION BID PRN (Reason: Shortness Of Breath) RF: 0 glipizide 10 mg Tablet 10 mg PO BID@0600,1800 RF: 0 aspirin 81 mg Tablet,Delayed Release (Dr/Ec) 81 mg PO DAILY@0600 RF: 0 Lantus U-100 Insulin 100 unit/mL solution 50 unit SUBCUT DAILY@0600 RF: 0 alogliptin 25 mg tablet 12.5 mg PO BID RF: 0 Hold Instructions: Resume on 07/19/19. metoprolol tartrate 25 mg tablet 50 mg PO BID@0600,1800 RF: 0 furosemide 40 mg tablet 20 mg PO DAILY@0600 RF: 0 cholecalciferol (vitamin D3) [Vitamin D3] 50 mcg (2,000 unit) Capsule 50 mcg PO DAILY@0600 RF: 0 pravastatin 40 mg Tablet 40 mg PO DAILY RF: 0 potassium chloride 20 mEq Tablet Extended Release 40 meq PO DAILY RF: 0 hydrocodone-acetaminophen 5-325 mg tablet 1 tab PO Q4H PRN (Reason: pain) RF: 0 gabapentin 100 mg capsule 300 mg PO TID@06,12,18 RF: 0 Referrals: Radha Blevins MD [Primary Care Provider] - Transfer Attestations Time Spent in Transfer Care*: greater than 30 min Specific Discharge Activities: Specific discharge activities: educating patient, discussing with pcp/other providers, discussing with outsole caser/social workers/dc planners, documenting/other paperwork and evaluating patient/reviewing data Status at Transfer: Cognitive status at transfer: cognitively intact, Behavioral status at transfer: cooperative, Functional status at transfer: independent ambulation Overall status at transfer: patient is not back to baseline Quality Metrics Clinical Quality Measures: During this hospital stay, did patient experience: None Coding Level of Care Code Acute Iron Carrier for Adelaida Hayes Diagnoses Chest pain R07.9 Dyspnea on exertion R06.00 Chronic kidney disease N18.9 Sleep apnea G47.30 Sleep apnea type: unspecified type Coronary artery disease I25.709 Coronary Disease-Associated Artery/Lesion type: bypass graft [place] vs. transplanted heart: [place] heart Associated angina: with unspecified angina COPD with hypoxia J44.9; R09.02 On home O2 Z99.81
[2021-06-05] MEDS: acetaminophen 325 mg Tablet 650 MG PO (15:06)
[2021-06-05 17:52] LABS: Glucose Point of Care 127 mg/dL (70-110)
[2021-06-05] MEDS: enoxaparin 40 mg/0.4 mL Syringe SUBCUT (18:03)
[2021-06-05 20:06] LABS: Glucose Point of Care 202 mg/dL (70-110)
[2021-06-05] MEDS: insulin lispro 100 unit/1 mL SUBCUT (20:11)
[2021-06-06] VITALS (78 sets, daily range): BP systolic 85–128; BP diastolic 39–74; PULSE 53–78; RESP 20; O2SAT 83–95
[2021-06-06] MEDS: aspirin 81 mg EC Tablet PO (05:00)
[2021-06-06] MEDS: metoprolol tartrate 25 mg Tablet 50 MG PO (05:00)
[2021-06-06] MEDS: gabapentin 100 mg Capsule 300 MG PO ×2 (05:01→11:31)
[2021-06-06] MEDS: cholecalciferol (vitamin D3) 1,000 unit Tablet 2000 UNIT PO (05:01)
[2021-06-06] MEDS: insulin glargine 100 units/1 mL 50 UNIT SUBCUT (05:01)
--- NOTE | 2021-06-06 05:41 | PC.NURSE ---
Patient rested well overnight. No s/s of distress or pain. V/S WNL.
[2021-06-06 07:55] LABS: Basophils # 0.1 10^3/uL (0.0-0.1); Basophils % 0.7 %; Eosinophils # 0.5 10^3/uL (0.0-0.8); Eosinophils % 6.4 %; Hematocrit 45.6 % (42.0-52.0); Hemoglobin 15.4 g/dL (11.7-16.6); Lymphocytes # 2.4 10^3/uL (0.8-4.8); Lymphocytes % 29.4 %; Mean Corpuscular HGB Conc 33.8 g/dL (30.0-36.0); Mean Corpuscular Hemoglobin 32.5 pg (28.0-34.0); Mean Corpuscular Volume 96.2 fl (80-94); Mean Platelet Volume 10.5 fL (7.4-10.4); Monocytes # 0.6 10^3/uL (0.2-0.9); Monocytes % 7.2 %; Neutrophils # 4.62 10^3/uL (1.8-7.7); Neutrophils % 56.1 %; Nucleated Red Blood Cells % 0 %; Platelet Count 147 10^3/cmm (130-400); Red Blood Count 4.74 10^6/uL (4.1-5.3); Red Cell Distribution Width 13.8 % (12.1-15.1); White Blood Count 8.2 10^3/uL (4.0-10.0)
[2021-06-06 07:59] LABS: Glucose Point of Care 160 mg/dL (70-110)
[2021-06-06] MEDS: insulin lispro 100 unit/1 mL SUBCUT ×2 (07:59→11:31)
[2021-06-06] MEDS: tamsulosin 0.4 mg Capsule PO (08:01)
[2021-06-06] MEDS: atorvastatin 40 mg Tablet 80 MG PO (08:01)
[2021-06-06 08:15] LABS: Alanine Aminotransferase 11 U/L (0-41); Albumin Level 3.6 g/dL (3.5-5.2); Alkaline Phosphatase 67 IU/L (40-130); Anion Gap 18.2 (5-19); Aspartate Amino Transferase 15 U/L (0-40); Blood Urea Nitrogen 19 mg/dL (8-23); Calcium 8.6 mg/dL (8.5-10.5); Carbon Dioxide 24 mmol/L (22-29); Chloride 100 mmol/L (98-107); Creatinine Clr Calc Pharmacy 75.9442; Globulin 2.5 g/dL (1.3-4.6); Glucose 131 mg/dL (65-115); Osmolality Calculated 290 mOsm/kg (285-295); Potassium 4.2 mmol/L (3.5-5.1); Sodium 138 mmol/L (136-145); Total Bilirubin 0.6 mg/dL (0.15-1.2); Total Protein 6.1 g/dL (6.6-8.7)
--- NOTE | 2021-06-06 08:28 | PM.PN ---
Subjective Subjective: Interval history: Patient continues to have exertional chest pain and shortness of breath. No significant symptoms at rest. Vital signs remained stable. At the cardiac catheterization yesterday. Patient was found to have severe disease in the mid LAD. Patent venous graft to the diagonal and to the PDA. Atretic BOSWELL to the LAD Medications: Reviewed: Yes Medication Review Details: Current Medications Acetaminophen (Acetaminophen 325 Mg Tablet) 650 mg PO Q6H PRN PRN Reason: Mild/Mod Pain Or Temp >/= 101 Last Admin: 06/05/21 15:06 Dose: 650 mg Documented by: Hydrocodone Bitart/Acetaminophen (Hydrocodone-Acetaminophen 5-325 Mg Tablet) 1 tab PO Q4H PRN PRN Reason: pain Al Hydrox/Mg Hydrox/Simethicone (Aewn-Ovq-Kzzkccffo-Andriy 30 Ml Udc) 30 ml PO Q15M PRN PRN Reason: INDIGESTION Albuterol Sulfate (Albuterol 8 Gm Mdi) 2 puff INHALATION Q6H PRN PRN Reason: Wheezing Alprazolam (Alprazolam 0.5 Mg Tablet) 0.25 mg PO TID PRN PRN Reason: ANXIETY Aspirin (Aspirin 81 Mg Ec Tablet) 81 mg PO DAILY@0600 [facility] Last Admin: 06/06/21 05:00 Dose: 81 mg Documented by: Atorvastatin Calcium (Atorvastatin 40 Mg Tablet) 80 mg PO DAILY [facility] Last Admin: 06/06/21 08:01 Dose: 80 mg Documented by: Atropine Sulfate (Atropine 1 Mg/Ml Sdv 1 Ml) 0.5 mg IVP PRN PRN PRN Reason: Symptomatic bradycardia Dextrose (Dextrose 50% Syringe 50 Ml) 25 ml IVP ONCE PRN; Protocol PRN Reason: hypoglycemia protocol Dextrose (Dextrose 50% Syringe 50 Ml) 50 ml IVP PRN PRN; Protocol PRN Reason: hypoglycemia protocol Dextrose (Dextrose 50% Syringe 50 Ml) 25 ml IVP ONCE PRN; Protocol PRN Reason: hypoglycemia protocol Dextrose (Dextrose 50% Syringe 50 Ml) 50 ml IVP PRN PRN; Protocol PRN Reason: hypoglycemia protocol Docusate Sodium (Docusate Sodium 100 Mg Capsule) 100 mg PO DAILY PRN PRN Reason: CONSTIPATION Last Admin: 06/04/21 20:46 Dose: 100 mg Documented by: Enoxaparin Sodium (Enoxaparin 40 Mg/0.4 Ml Syringe) 40 mg SUBCUT Q24H [facility] Last Admin: 06/05/21 18:03 Dose: 40 mg Documented by: Gabapentin (Gabapentin 100 Mg Capsule) 300 mg PO TID@06,12,18 [facility] Last Admin: 06/06/21 05:01 Dose: 300 mg Documented by: Glucagon (Glucagon 1 Mg/Ml Inj 1 Ml) 1 mg IM ONCE PRN; Protocol PRN Reason: Adult Acute Hypoglycemia Prot. Glucagon (Glucagon 1 Mg/Ml Inj 1 Ml) 1 mg IM ONCE PRN; Protocol PRN Reason: Adult Acute Hypoglycemia Prot. Dextrose (D5w) 500 mls @ 100 mls/hr IV ONCE PRN; Protocol PRN Reason: Adult Acute Hypoglycemia Prot Dextrose (D5w) 500 mls @ 100 mls/hr IV ONCE PRN; Protocol PRN Reason: Adult Acute Hypoglycemia Prot Insulin Glargine (Insulin Glargine 100 Units/1 Ml) 50 unit SUBCUT DAILY@0600 [facility] Last Admin: 06/06/21 05:01 Dose: 50 unit Documented by: Insulin Human Lispro (Insulin Lispro 100 Unit/1 Ml) 0 unit SUBCUT WM&BEDTIME [facility]; Protocol Last Admin: 06/06/21 07:59 Dose: 2 unit Documented by: Magnesium Hydroxide (Magnesium Hydroxide 30 Ml Udc) 30 ml PO DAILY PRN PRN Reason: CONSTIPATION Metoprolol Tartrate (Metoprolol Tartrate 25 Mg Tablet) 50 mg PO BID@0600,1800 [facility] Last Admin: 06/06/21 05:00 Dose: 50 mg Documented by: Naloxone HCl (Naloxone 0.4 Mg/Ml Sdv) 0.1 mg IVP Q2M PRN PRN Reason: RESPIRATORY RATE < 8/MIN Nitroglycerin (Nitroglycerin 0.4 Mg Sublingual Tablet) 0.4 mg SUBLINGUAL Q5M PRN PRN Reason: CHEST PAIN Ondansetron HCl (Ondansetron 2 Mg/Ml Sdv 2 Ml) 4 mg IVP Q2M PRN PRN Reason: NAUSEA Fluticasone/Salmeterol (Fluticasone-Salmeterol 250-50 Diskus) 2 puff INHALATION BID [facility] Last Admin: 06/05/21 20:06 Dose: 2 puff Documented by: Tamsulosin HCl (Tamsulosin 0.4 Mg Capsule) 0.4 mg PO DAILY [facility] Last Admin: 06/06/21 08:01 Dose: 0.4 mg Documented by: Temazepam (Temazepam 15 Mg Capsule) 15 mg PO BEDTIME PRN PRN Reason: INSOMNIA Vitamin D (Cholecalciferol (Vitamin D3) 1,000 Unit Tablet) 2,000 unit PO DAILY@0600 [facility] Last Admin: 06/06/21 05:01 Dose: 2,000 unit Documented by: Vitals/I&O/Wt Last Vital Signs Temp 97.8 F 06/04/21 15:26 Pulse 64 06/06/21 05:48 Resp 19 H 06/05/21 20:06 BP 107/39 06/06/21 04:50 Pulse Ox 90 06/06/21 03:40 06/05/21 06/06/21 06/06/21 22:59 06:59 14:59 Intake Total 240 / 480 1001.667 / 1481.667 Output Total 300 / 600 Balance 240 / 180 701.667 / 881.667 Physical Exam Narrative: EXAM NARRATIVE: GENERAL: The patient is alert and oriented times three. Not in any acute distress. Morbidly obese HEENT: No significant pallor, icterus or lymphadenopathy. The pupils are symmetrical. Oral cavity: There are no mucous membrane lesions. NECK: Trachea appears to be central. No masses noted. No JVD or thyromegaly appreciated. No carotid bruit. RESPIRATORY: Chest is symmetrical. No intercostals muscle retraction or any accessory muscle activation. There is no chest wall tenderness. Breath sounds are heard bilaterally. Diagnosis of breath sounds are diminished in the bases. Occasional expiratory wheezing BREASTS: Deferred. HEART: The PMI could not be palpated . no palpable precordial events. S1 and S2 are normal. No S3 or S4 heard. No pericardial rub or any click heard. Short systolic murmur in the left sternal border. No diastolic murmurs ABDOMEN: Abdomen is obese. No vessel pulsations or distention. No tenderness. No organomegaly appreciated. No abdominal bruit. Bowel sounds are normally heard. : Deferred. RECTAL: Deferred. LYMPHATIC: No lymphadenopathy noted in the neck or groin. EXTREMITIES: No edema cyanosis. Peripheral pulses are palpable but somewhat weak bilaterally. MUSCULOSKELETAL: No acute joint deformities or swelling SKIN: There are no significant scars or skin rash noted. NEUROPSYCHIATRIC: No focal motor deficits Data : 06/06/21 07:30 06/06/21 07:30 Micro: Microbiology 06/02/21 20:24 Urine Culture - Final Urine,Clean Catch A&P Assessment and plan (1) Atherosclerotic heart disease of [place] coronary artery with other forms of angina pectoris: Most likely patient symptoms are related to the high-grade lesion of the mid LAD. Because of the complex nature of the lesion, he is being transferred to [facility] for further management. Dr. Bates accepted transfer for further management. We'll continue on the current medication. Also may start him on heparin because of the ongoing exertional symptoms Status: Acute (2) Elevated troponin: In view of the abnormal myocardial perfusion imaging, it is possible that the patient might have had a non-ST elevation myocardial infarction/type II NH. His EKG is unremarkable. Status: Acute (3) COPD (chronic obstructive pulmonary disease): May continue on the current treatment. Status: Acute Qualifiers: COPD type: unspecified COPD Qualified Code(s): J44.9 - Chronic obstructive pulmonary disease, unspecified (4) Benign essential hypertension with target blood pressure below 140/90: Only the blood pressure is under control. Status: Acute (5) Dyslipidemia: Continue on the current medications. Status: Acute (6) Chronic kidney disease: The BUN/creatinine is in the normal range. Status: Acute Qualifiers: Chronic kidney disease stage: stage 2 (mild) Qualified Code(s): N18.2 - Chronic kidney disease, stage 2 (mild) Additional A&P Information Addendum Patient underwent left heart cath Patient underwent left heart catheterization with a left and right coronary angiogram, and graft angiogram. He was found to have a high-grade lesion in the mid LAD distal to the anastomosis. Patent sequential venous graft to the LAD and the diagonal. Patent graft to the RCA. BOSWELL was found to be atretic based on the previous angiogram. The coronary lesion was found to be complex to intervene, after reviewed by Dr Kaur and Dr Schaffer. So it was recommended to have complex coronary intervention to be performed at a high-volume facility. I contacted Dr. Bates at the [facility]. Dr. Bates accepted his transfer for further management. Attestations Medical Necessity Statement*: Awaiting transfer to the [facility] Coding Level of Care Code Acute Lockstitch Front Maker for Chg Fwd History Detailed Exam Detailed Medical Decision Making Moderate Complexity Diagnoses Atherosclerotic heart disease of [place] coronary artery with other forms of angina pectoris I25.118 Elevated troponin R77.8 COPD (chronic obstructive pulmonary disease) J44.9 COPD type: unspecified COPD Benign essential hypertension with target blood pressure below 140/90 I10 Dyslipidemia E78.5 Chronic kidney disease N18.2 Chronic kidney disease stage: stage 2 (mild)
--- NOTE | 2021-06-06 09:38 | PC.CHAP ---
Pastoral Care Encounter/Spiritual Assessment Type of Contact [] Declined editor school photograph visit [] Patient/Family/Request visit [] Outpatient visit [] Follow-up visit [] Physician referral [] Code/Alert [x] Routine visit [] Staff referral [] Actively dying [] Patient sleeping [x] Family support [] [] Out of room [] Palliative care [] [] Receiving care in room [] Pre-surgical visit [] Trauma [] Long length of stay [x] ICU visit [] Other: Relational/Emotional Strength [] Patient feels connected with others/family/visitors/staff [] Distress [] Loneliness/isolation [] Abandonment Spirituality of Patient [] Person of Molly [] Attends Scientology of their Molly [] Believes in Prayer [] Reads Bible or Taoism materials [] There are Spiritual issues to be addressed Siene Maker Interventions [x] Prayer [x] Active listening [x] Non-anxious presence [x] Spiritual/emotional support [] Crisis/trauma care [] Spiritual counseling [] Bereavement support [] Provided bereavement packet [] Provided Bible/devotional materials [] Provided toy/stuffed animal, coloring book to patient or family member [] Provided Communion [] Anointing/[place] [] Salvation [x] Completed spiritual assessment [] Other: Impact on Illness or Injury [] Angry [] Fearful [] Anxious [] Often cries [] Exhaustion [] Unable to work [] Unable to attend pentecostalism [] Unable to walk/stand [] Unable to read [] Unable to drive [] Unable to eat/drink [] Unable to sleep [] Unable to be with family [] Patient intubated [] Other: Summary patient setting on side of bed having breakfast.. family present.. patient anxious.. needs surgery, and [facility] is tranferring him to another hospital for care... he has had prior surgeries and now needs additional... spoke to care nurse and he is on waiting list.. Time spent with patient 15 min
[2021-06-06 11:31] LABS: Glucose Point of Care 207 mg/dL (70-110)
[2021-06-06] MEDS: heparin drip 25,000 UNIT/500 ML PREMIX 35 UNIT IV (11:39)
--- NOTE | 2021-06-06 14:40 | PC.NURSE ---
EMS came to transfer patient to [facility] and left facility at [phone]. All belongings with family at bedside. All questions answered and report called to facility.
--- NOTE | 2021-06-06 17:06 | PM.PN ---
Subjective Subjective: Interval history: Patient for transfer to [facility] for further management of single-vessel disease in setting of post CABG status. Awaiting bed. Overnight has remained hemodynamically stable and afebrile without chest pain. Started on heparin drip today. Continue with aspirin, statin. Holding Plavix for possible CABG. Medications: Reviewed: Yes Vitals/I&O/Wt Last Vital Signs Temp 97.8 F 06/04/21 15:26 Pulse 78 06/06/21 14:00 Resp 20 H 06/06/21 08:53 BP 109/61 06/06/21 08:00 Pulse Ox 91 06/06/21 11:30 06/06/21 06/06/21 06/06/21 06:59 14:59 22:59 Intake Total 1001.667 / 3067.108 9890 / 1100 Output Total 300 / 600 Balance 701.667 / 529.723 2203 / 1100 Physical Exam Narrative: EXAM NARRATIVE: Family with him in the room. Const: COMMON NORMALS: no acute distress, patient oriented x3 and alert GENERAL APPEARANCE: cooperative NUTRITIONAL APPEARANCE: obese ORIENTATION/CONSCIOUSNESS: Yes awake HENMT: COMMON NORMALS: oropharynx normal Neck/C-Spine: COMMON NORMALS: no JVD Resp: COMMON NORMALS: normal respiratory effort and clear to auscultation bilaterally AUSCULTATION: clear to auscultation bilaterally Cardio: COMMON NORMALS: no JVD, regular rhythm, S1 normal heart sound present, S2 normal heart sound present and No murmurs present (Cardio) RHYTHM: regular rhythm HEART SOUNDS: S1 normal heart sound present and S2 normal heart sound present GI: COMMON NORMALS: Normal to inspection, nondistended, normoactive bowel sounds present, Soft to palpation and non-tender PALPATION: Yes Soft to palpation Extremity: COMMON NORMALS: no joint enlargement GENERAL: Yes edema (1+) Neuro: COMMON NORMALS: patient oriented x3 and moves all extremities SENSORIUM/ORIENTATION: Yes alert Skin: COMMON NORMALS: no rashes or lesions noted GENERAL SKIN EXAM: no rashes or lesions noted Data : 06/06/21 07:30 06/06/21 07:30 A&P Assessment and plan (1) Chest pain: Post CABG, cardiac angiogram December 2019 showing chronically occluded RCA, ramus, proximal LAD with patent SVG to RCA and diagonal. Lexiscan results appreciated cardiology recommendations appreciated. Single-vessel disease on cardiac angiogram. Needing transfer to a higher center for possible single-vessel CABG. Start on heparin drip. Accepted at [facility] awaiting bed. Status: Acute (2) Dyspnea on exertion: Most likely a combination of unstable angina secondary to CAD, obstructive sleep apnea exacerbation secondary to noncompliance to CPAP. For now continue with home dose of inhalers. Echocardiogram results appreciated. Showing EF of 48% with moderate diffuse hypokinesia septum and anteroseptal segments, RV looking mildly dilated. IV Lasix 40 mg daily. Monitors strict input output, daily weights, fluid restriction up to 1500 cc. Oxygen supplementation keeping saturation over 88%. Discussed in detail with patient regarding compliance with CPAP, possible resleep study to adjust CPAP settings. Patient verbalized understanding and is agreeable to follow-up. Minimal abnormality of D-dimer, 0.84. No unilateral leg edema. No cough, shortness of breath, on baseline oxygen. I believe probability of PE is low. At this time obtaining VQ scan may not be helpful given underlying COPD, and would interfere also with assessment by stress test. He is concerned regarding his renal function with consideration of CTA. Currently also not a candidate for anticoagulation given hematuria. Status: Acute (3) Chronic kidney disease: LEANNA from yesterday seem to have resolved. Stop IV fluids. Can start oral Lasix from tomorrow. Patient euvolemic. Status: Acute Qualifiers: Chronic kidney disease stage: stage 2 (mild) Qualified Code(s): N18.2 - Chronic kidney disease, stage 2 (mild) (4) Sleep apnea: Should resume and continue CPAP Status: Acute Qualifiers: Sleep apnea type: unspecified type Qualified Code(s): G47.30 - Sleep apnea, unspecified (5) Coronary artery disease: Continue aspirin, beta-vee, statin. Status: Chronic Qualifiers: Coronary Disease-Associated Artery/Lesion type: bypass graft [place] vs. transplanted heart: [place] heart Associated angina: with unspecified angina Qualified Code(s): I25.709 - Atherosclerosis of coronary artery bypass graft(s), unspecified, with unspecified angina pectoris (6) COPD with hypoxia: Does not appear in exacerbation. Status: Acute (7) On home O2: Status: Acute Additional A&P Information DM2: Insulin HLD: Continue statin HTN: Continue metoprolol, monitor blood pressures BPH: Continue Flomax Plan for day: Continue with aspirin, statin. Cardiothoracic surgeon consultation for further management. Will follow recommendations. Oxygen supplementation keeping saturation over 88%. Stop Lasix secondary to mild LEANNA. Continue with gentle IV hydration while monitoring for fluid overload. Transfer to [facility]. Attestations Medical Necessity Statement*: Awaiting bed at [facility]. Requires further hospitalization for management of critical CAD in setting of post CABG status Time Spent in Patient Care: Greater than 35 minutes (>than 50% of time spent in counselling and/or direct pt care on unit). Coding Level of Care Code Acute Pharmaceutical Salesperson for Chg Fwd Diagnoses Chest pain R07.9 Dyspnea on exertion R06.00 Chronic kidney disease N18.2 Chronic kidney disease stage: stage 2 (mild) Sleep apnea G47.30 Sleep apnea type: unspecified type Coronary artery disease I25.709 Coronary Disease-Associated Artery/Lesion type: bypass graft [place] vs. transplanted heart: [place] heart Associated angina: with unspecified angina COPD with hypoxia J44.9; R09.02 On home O2 Z99.81
--- NOTE | 2021-06-07 07:13 | W.PM.OPSUD ---
Surgery/Procedure H&P Update DATE OF PROCEDURE: June 07, 2021 DATE H&P PERFORMED: 05/28/21 H&P UPDATE INFORMATION: I have reviewed H&P completed within last 30 days, I have examined patient prior to procedure, No changes to prior documentation and Changes to prior documentation as noted here PREOP DIAGNOSIS: Syncope/symptomatic bradycardia PLANNED PROCEDURE: Operation Date: 06/05/21 07:00 Proposed Procedures p Cardiac Catheterization(Not Applicable) - Hansa Humphrey MD PATIENT REASSESSED PRIOR TO SEDATION, WITH NO CHANGE NOTED: Yes PHYSICAL EXAM: alert, clear to auscultation bilaterally, regular rate & rhythm and operative site marked AIRWAY EVAL/ANESTHESIA PLAN: normal airway, see other exam findings, ASA II, Monitored Anesthesia, Local Anesthesia, Risks, benefits & alternatives of sedation and/or procedure discussed and Patient agrees to continue as planned
== END 2021-06-06 14:38 | disposition short-term general hospital (02) | DRG 287 ==
LOC: ER 20:30 → MEDSURG 23:14 → ICU 06-04 16:47
PROVIDERS: Internal Medicine Cardiovascular Disease; Admitting Provider Internal Medicine; Emergency Provider Emergency Medicine; PCP Family Medicine; Visit Provider Student in an Organized Health Care Education/Training Program
PROC: B211YZZ Fluoroscopy of Multiple Coronary Arteries using Other Contrast (ICD-10-PCS; principal; 2021-06-05 07:00)
DX: I25.118 Atherosclerotic heart disease of native coronary artery with other forms of angina pectoris (principal); J96.11 Chronic respiratory failure with hypoxia; I13.0 Hypertensive heart and chronic kidney disease with heart failure and stage 1 through stage 4 chronic kidney disease, or unspecified chronic kidney disease; I50.30 Unspecified diastolic (congestive) heart failure; Z68.41 Body mass index [BMI] 40.0-44.9, adult; N17.9 Acute kidney failure, unspecified; I25.708 Atherosclerosis of coronary artery bypass graft(s), unspecified, with other forms of angina pectoris; G47.30 Sleep apnea, unspecified; N18.9 Chronic kidney disease, unspecified; E11.22 Type 2 diabetes mellitus with diabetic chronic kidney disease; J44.9 Chronic obstructive pulmonary disease, unspecified; E78.5 Hyperlipidemia, unspecified; E66.01 Morbid (severe) obesity due to excess calories; E11.40 Type 2 diabetes mellitus with diabetic neuropathy, unspecified; R77.8 Other specified abnormalities of plasma proteins; Z95.1 Presence of aortocoronary bypass graft; Z99.81 Dependence on supplemental oxygen; Z87.891 Personal history of nicotine dependence; Z79.4 Long term (current) use of insulin
CPT/HCPCS: 36415; 36416; 71045; 74176; 78452; 80048; 80053; 80061; 81001; 82550; 82962; 83036; 83690; 83880; 84484; 85025; 85378; 87086; 93005; 93017; 93308; 93459; 94640; 94664; 96372; 99285; A9500; C1760; C1769; C1887; C1894; G0378; J1644; J1650; J1815 ×2; J1940; J2250; J2785; J3010; J7030; Q0163; Q9967

== ENCOUNTER → 2021-08-02 09:37 | Outpatient (BNVA) | payer OTHER, SELFPAY | PROVIDERS: PCP Family Medicine; Visit Provider Urology | DX: N39.0 Urinary tract infection, site not specified (principal) | CPT/HCPCS: 81003 ==

== ENCOUNTER 2021-08-20 10:06 | Outpatient (CLI) | payer OTHER, SELFPAY ==
--- NOTE | 2021-08-20 10:18 | US_ITS ---
WS: [id number] ULTRASOUND RENAL TECHNIQUE: Ultrasound examination of both kidneys. CLINICAL INFORMATION: STAGE 3B CHRONIC KIDNEY DZ COMPARISON: None. FINDINGS: RIGHT: Mid complex RIGHT renal cyst measuring 4.2 x 3.2 x 2.9 cm corresponding to the recent CT with internal debris. Smaller simple RIGHT renal cyst measuring 1.1 x 1.2 x 0.8 cm Right kidney is normal in size and appearance. Echogenicity: Normal. Cortical thickness: 1.1 cm; Normal. Hydronephrosis: None. Perinephric fluid: None. Right kidney measures: 11.4 cm x 6.2 cm x 6.9 cm. LEFT: Left kidney is normal in size and appearance. Echogenicity: Normal. Cortical thickness: 1.3 cm; Normal. Hydronephrosis: None. Perinephric fluid: None. Left kidney measures: 9.9 cm x 3.9 cm x 4.8 cm. Normal visualized aorta. US/US renal BI* [id number] IMPRESSION: 1. No hydronephrosis in either kidney. Mild bilateral renal cortical atrophy. 2. Mid complex RIGHT renal cyst measuring 4.2 x 3.2 x 2.9 cm corresponding to the recent CT with internal debris. 3. Smaller simple RIGHT renal cyst measuring 1.1 x 1.2 x 0.8 cm 4. Normal bladder.
== END 2021-08-20 10:07 | disposition home or self-care (01) ==
LOC: RAD 10:11
PROVIDERS: PCP Family Medicine; Visit Provider Family Medicine
DX: N18.32 Chronic kidney disease, stage 3b (principal); N26.1 Atrophy of kidney (terminal); Q61.02 Congenital multiple renal cysts
CPT/HCPCS: 76770

== ENCOUNTER → 2021-09-17 10:00 | Outpatient (BNVA) | payer OTHER, SELFPAY | PROVIDERS: PCP Family Medicine; Visit Provider Internal Medicine Cardiovascular Disease | DX: I25.118 Atherosclerotic heart disease of native coronary artery with other forms of angina pectoris (principal); Z95.1 Presence of aortocoronary bypass graft; I10 Essential (primary) hypertension | CPT/HCPCS: 99214 ==

== ENCOUNTER → 2022-03-05 13:19 | Outpatient (BNVA) | payer OTHER, SELFPAY | PROVIDERS: PCP Family Medicine; Visit Provider Nurse Practitioner Family | DX: I25.709 Atherosclerosis of coronary artery bypass graft(s), unspecified, with unspecified angina pectoris (principal); I50.9 Heart failure, unspecified | CPT/HCPCS: 99214 ==

== ENCOUNTER → 2022-09-03 11:03 | Outpatient (BNVA) | payer OTHER, SELFPAY | PROVIDERS: PCP Family Medicine; Visit Provider Internal Medicine Cardiovascular Disease | DX: I25.5 Ischemic cardiomyopathy (principal); G47.30 Sleep apnea, unspecified; J44.9 Chronic obstructive pulmonary disease, unspecified; I13.0 Hypertensive heart and chronic kidney disease with heart failure and stage 1 through stage 4 chronic kidney disease, or unspecified chronic kidney disease; E11.22 Type 2 diabetes mellitus with diabetic chronic kidney disease; E11.65 Type 2 diabetes mellitus with hyperglycemia; N18.9 Chronic kidney disease, unspecified; I50.9 Heart failure, unspecified; Z87.891 Personal history of nicotine dependence; Z79.84 Long term (current) use of oral hypoglycemic drugs | CPT/HCPCS: 99214 ==

== ENCOUNTER 2022-09-30 14:10 | Outpatient (CLI) | payer OTHER, SELFPAY ==
--- NOTE | 2022-09-30 15:00 | USCV_ITS ---
LeonAmbrose sousa Age: 76 Gender: M : 1945 Exam Date: 09/30/2022 14:42 Ordering Phys: Hansa Humphrey MD ([email or web address]) Technologist: [place] [facility] [place]ication: hx of cad BP: 130 / 80 HR: 73 Rhythm: Sinus Technical Quality: Adequate MEASUREMENTS (Male / Female) Normal Values 2D ECHO LV Diastolic Diameter PLAX 3.7 cm 4.2 - 5.9 / 3.9 - 5.3 cm LV Systolic Diameter PLAX 2.5 cm IVS Diastolic Thickness 1.2 cm 0.6 - 1.0 / 0.6 - 0.9 cm IVS Systolic Thickness 1.8 cm LVPW Diastolic Thickness 1.1 cm 0.6 - 1.0 / 0.6 - 0.9 cm LVPW Systolic Thickness 1.2 cm LVOT Diameter 2.0 cm LV Ejection Fraction 2D Teich 63.0 % LV Ejection Fraction MOD 2C 70.2 % LV Ejection Fraction 2C AL 71.5 % LA Diameter 4.7 cm M-MODE Aortic Annulus Diameter 3.9 cm LA Ao Ratio MM 1.4 MV E Point Septal Separation 1.4 cm DOPPLER AV Peak Velocity 124.0 cm/s LVOT Peak Velocity 78.0 cm/s AV Area Cont Eq vti 2.1 cm squared AV Area Cont Eq pk 2.0 cm squared MV Area PHT 5.0 cm squared Mitral E to A Ratio 0.6 MV E' Velocity 32.5 cm/s Mitral E to MV E' Ratio 8.1 Mitral E to LV E' Lateral Ratio 6.8 Mitral E to LV E' Septal Ratio 10.2 TR Peak Velocity 169.7 cm/s TR Peak Gradient 11.5 mmHg TV Peak E Velocity 62.0 cm/s Right Atrial Pressure 3.0 mmHg Pulmonary Artery Systolic Pressu 14.5 mmHg RV Acceleration Time 0.1 s FINDINGS Left Ventricle Normal left ventricular size and systolic function, EF 70 %. No regional wall motion abnormalities. Grade I/IV diastolic dysfunction (abnormal relaxation filling pattern), normal to mildly elevated filling pressures. Right Ventricle Mildly increased right ventricular size. Normal right ventricular systolic function. Right Atrium Mildly increased right atrial size. Left Atrium The left atrium is normal in size. Mitral Valve Thickened mitral valve. Aortic Valve Thickened aortic valve. Tricuspid Valve No gross abnormalities noted.. Pulmonic Valve Pulmonic valve not well visualized. Pericardium Normal pericardium without effusion. Aorta Normal aortic annulus size. IVC Inferior vena cava not visualized. CONCLUSIONS Normal left ventricular size and systolic function, EF 70 %. No regional wall motion abnormalities. Grade I/IV diastolic dysfunction (abnormal relaxation filling pattern), normal to mildly elevated filling pressures. Thickened mitral valve. Thickened aortic valve. Mildly increased right atrial size. Mildly increased right ventricular size. Normal right ventricular systolic function. There is no pericardial effusion. Compared to the study from 06/03/2021, there is significant improvement in the LV ejection fraction from 48% to 70%. Dr Hansa Humphrey MD [facility] (Electronically Signed) Final Date: 03 October 2022 20:08 S
== END 2022-09-30 14:11 | disposition home or self-care (01) ==
LOC: RAD 14:17
PROVIDERS: PCP Family Medicine; Visit Provider Internal Medicine Cardiovascular Disease
DX: I50.9 Heart failure, unspecified (principal); I25.5 Ischemic cardiomyopathy
CPT/HCPCS: 93306

== ENCOUNTER → 2022-10-28 13:52 | Outpatient (BNVA) | payer OTHER, SELFPAY | PROVIDERS: PCP Family Medicine; Visit Provider Internal Medicine Cardiovascular Disease | DX: I95.1 Orthostatic hypotension (principal); E11.22 Type 2 diabetes mellitus with diabetic chronic kidney disease; E11.65 Type 2 diabetes mellitus with hyperglycemia; Z79.4 Long term (current) use of insulin; I50.9 Heart failure, unspecified; N18.2 Chronic kidney disease, stage 2 (mild); G47.30 Sleep apnea, unspecified; J44.9 Chronic obstructive pulmonary disease, unspecified; I25.10 Atherosclerotic heart disease of native coronary artery without angina pectoris; M79.606 Pain in leg, unspecified; Z87.891 Personal history of nicotine dependence; Z95.1 Presence of aortocoronary bypass graft | CPT/HCPCS: 99214 ==

== ENCOUNTER 2022-11-08 09:02 | Outpatient (CLI) | payer OTHER, SELFPAY ==
--- NOTE | 2022-11-08 09:45 | USCV_ITS ---
Ambrose Villa Age: 76 Gender: M : 1945 Exam Date: 11/08/2022 09:22 Ordering Phys: Hansa Humphrey MD ([email or web address]) Technologist: Soledad Crandall Exam Location: [facility] [place] Indication: DECREASED PEDAL PULSE Risk Factors: DM AND CARDIAC PROBLEMS Previous Vascular Surgery: CABG RIGHT LEFT BP: 123.0 / 68.00 BP: 132.0/ 74.00 0 0 Waveform Velocity (cm/s) Velocity (cm/s) Waveform Triphasic 140.3 Iliac Prox 80.7 Biphasic Triphasic 152.9 Iliac Mid 62.2 Biphasic Biphasic 106.9 Iliac Distal 60.5 Biphasic Biphasic 51.3 HEAD GOLF COACH 80.5 Biphasic Biphasic 93.1 SFA Prox 81.6 Biphasic Biphasic SFA Mid Biphasic 87.2 60.6 Biphasic 66.7 SFA Dist 101.4 Biphasic Biphasic 38.4 POP 50.7 Biphasic Biphasic MANAGER LEARNING 54.0 Biphasic Biphasic 27.6 DPA 30.2 Biphasic 1.0 KEITH 0.8 FINDINGS Mild diffuse plaque in the iliac and femoral arteries bilaterally. Biphasic arterial Doppler waveforms bilaterally. Resting KEITH 1.0 on the right side and 0.8 on the left side CONCLUSIONS 1. Features of mild peripheral artery disease on the left side 2. No significant arterial obstruction on the right side Compared to the study from 05/17/2014, the KEITH on the left side has decreased from 1.[address] Hansa Humphrey MD [facility] (Electronically Signed) Final Date: 08 Nov 2022 17:24 S
== END 2022-11-08 09:03 | disposition home or self-care (01) ==
LOC: RAD 09:04
PROVIDERS: PCP Family Medicine; Visit Provider Internal Medicine Cardiovascular Disease
DX: I70.203 Unspecified atherosclerosis of native arteries of extremities, bilateral legs (principal); M79.605 Pain in left leg; M79.604 Pain in right leg; I25.10 Atherosclerotic heart disease of native coronary artery without angina pectoris
CPT/HCPCS: 93925; 99214

== ENCOUNTER 2023-06-25 09:28 | Outpatient (CLI) | payer OTHER, SELFPAY ==
--- NOTE | 2023-06-25 09:31 | USCV_ITS ---
Daisy Ambrose Age: 77 Gender: M : 1945 Exam Date: 06/25/2023 09:56 Ordering Phys: Radha Blevins MD Technologist: CHELLY Exam Location: [facility] [place] Indication: BLE WEAKNESS Risk Factors: Previous Vascular Surgery: RIGHT LEFT BP: 124.0 / 62.00 BP: 124.0/ 63.00 0 0 Waveform Velocity (cm/s) Velocity (cm/s) Waveform Triphasic 106.3 Iliac Prox 76.4 Triphasic Triphasic 127.4 Iliac Mid 98.2 Triphasic Triphasic Iliac Distal Triphasic 116.1 92.3 Triphasic 125.3 GALLERY MANAGER 112.8 Triphasic Biphasic 81.5 SFA Prox 91.4 Biphasic Triphasic 100.3 SFA Mid 99.2 Biphasic Biphasic 152.6 SFA Dist 118.0 Biphasic Biphasic 31.7 POP 43.5 Biphasic Biphasic 58.5 SYSTEM MANAGER 38.8 Biphasic Biphasic 44.0 DPA 34.2 Biphasic 1.1 KEITH 1.2 FINDINGS Mild diffuse plaque in the iliac , femoral and popliteal arteries bilaterally Resting KEITH 1.1 on the right side and 1.2 on the left side. Normal/near normal arterial Doppler waveforms CONCLUSIONS 1. Normal resting ABIs bilaterally suggesting no significant arterial obstruction 2. Mild diffuse plaque in the iliac, femoral and popliteal arteries bilaterally 3. Some features of extensive arterial sclerosis Dr Hansa Humphrey MD [facility] (Electronically Signed) Final Date: 25 June 2023 17:20 S
== END 2023-06-25 09:29 | disposition home or self-care (01) ==
LOC: RAD 09:29
PROVIDERS: PCP Family Medicine; Visit Provider Family Medicine
DX: R09.89 Other specified symptoms and signs involving the circulatory and respiratory systems (principal); R53.1 Weakness; I70.203 Unspecified atherosclerosis of native arteries of extremities, bilateral legs
CPT/HCPCS: 93925

== ENCOUNTER 2023-07-22 07:18 | Emergency (ER) | payer OTHER, SELFPAY ==
[2023-07-22 07:19] VITALS: BP 98/65; PULSE 69; RESP 18; TEMP 36.9; O2SAT 86; BMI 35.2
--- NOTE | 2023-07-22 07:29 | CT_ITS ---
WS: [id number] CT CERVICAL SPINE HISTORY: trauma/fall TECHNIQUE: Contiguous 2.0 mm axial imaging performed through the entire cervical spine. Sagittal and coronal reformats also performed. All CT scans at [facility] use at least one of these dose o ptimization techniques: automated exposure control; mA and/or kV adjustment per patient size (include s targeted exams where dose is matched to clinical indication); or iterative reconstruction. DLP: 1669.11 mGy.cm COMPARISON: None available. Straightening of the normal cervical lordosis. Disc spaces are narrowed. No acute cervical spine frac ture. Facet joints are normally aligned. Lateral masses of C1 and C2 are aligned. The odontoid is int act. C2-C3: Small central disc protrusion. No stenosis. C3-C4: Mild facet arthritis and foraminal narrowing. C4-C5: Bilateral moderate facet arthritis and osteophytic ridging. Mild central and bilateral foramin al stenosis. C5-C6: Moderate facet arthritis and osteophytic ridging. No high-grade stenosis. C6-C7: Disc space narrowing with a large LEFT paracentral and foraminal osteophyte encroaching upon t he LEFT lateral thecal sac. Moderate LEFT foraminal stenosis with mild central and RIGHT foraminal st enosis. C7-T1: Normal. Lung apices are clear. There are small bilateral thyroid nodules. IMPRESSION: 1. No acute cervical spine fracture. 2. Facet joint arthritis and spondylosis. 3. Most significant stenosis at C6-7 involving the LEFT foramen due to a large osteophyte.
--- NOTE | 2023-07-22 07:29 | CT_ITS ---
WS: [id number] CT HEAD NONCONTRAST HISTORY: trauma/fall TECHNIQUE: Contiguous axial imaging performed through the brain in 2.5 mm imaging. Bone and soft tiss ue windows. Sagittal and coronal reformats reviewed. All CT scans at [facility] use at least one of these dose optimization techniques: automated exposure control; mA and/or kV adjustment per pa tient size (includes targeted exams where dose is matched to clinical indication); or iterative recon struction. DLP: 1669.11 mGy.cm COMPARISON: 02/21/2021 No acute intracranial hemorrhage, midline shift or mass effect. Mild to moderate bilateral cerebral and cerebellar atrophy without significant progression. Mild smal l vessel ischemic disease. Ventricles: Normal size with no hydrocephalus. Paranasal sinuses: Near complete opacification of the LEFT frontal sinus. No air-fluid levels within the sinuses. Mastoid air cells: Well pneumatized. Calvarium and scalp: Skull is intact with no soft tissue edema or swelling. IMPRESSION: 1. Mild to moderate bilateral cerebral and cerebellar atrophy with mild small vessel ischemic diseas e. No interval change. 2. No acute intracranial hemorrhage or edema.
--- NOTE | 2023-07-22 07:29 | XRR_ITS ---
PROCEDURE INFORMATION: Exam: XR Left Knee Exam date and time: 07/22/2023 7:41 AM Age: 77 years old Clinical indication: Injury or trauma; Fall; Blunt trauma; Knee; Left; Additional info: Trauma/fall TECHNIQUE: Imaging protocol: Radiologic exam of the left knee. Views: 3 views. COMPARISON: No relevant prior studies available. FINDINGS: Bones/joints: No acute fracture or dislocation. Mineralization is normal. Joint spacing and alignment are maintained. Soft tissues: Surgical clips medially. Vasculature: Peripheral arterial calcifications. XR/XR knee LT 3V* [id number] IMPRESSION: No acute fracture or dislocation.
--- NOTE | 2023-07-22 07:38 | PC.PHAR ---
faxed [place] for med list pt states he takes care of his own medications and is unsure of names and mgs of what he takes
[2023-07-22 07:56] VITALS: BP 96/65; PULSE 65; O2SAT 94
[2023-07-22 08:02] LABS: Basophils # 0.1 10^3/uL (0.0-0.1); Basophils % 0.9 %; Eosinophils # 0.4 10^3/uL (0.0-0.8); Eosinophils % 4.6 %; Hematocrit 46.1 % (37-53); Lymphocytes # 2.2 10^3/uL (0.8-4.8); Lymphocytes % 27.1 %; Mean Corpuscular HGB Conc 33.6 g/dL (30-55); Mean Corpuscular Hemoglobin 31.2 pg (27-33); Mean Corpuscular Volume 92.8 fl (82-101); Mean Platelet Volume 10.6 fL (7.4-10.4); Monocytes # 0.8 10^3/uL (0.2-0.9); Monocytes % 9.4 %; Neutrophils # 4.61 10^3/uL (1.8-7.7); Neutrophils % 57.4 %; Nucleated Red Blood Cells % 0 %; Platelet Count 141 10^3/cmm (157-399); Red Blood Count 4.97 10^6/uL (3.85-5.65); Red Cell Distribution Width 14.2 % (12.1-15.1); White Blood Count 8.02 10^3/uL (3.29-11.43)
--- NOTE | 2023-07-22 08:15 | ECG_ITS ---
[facility] Test Date: 2023-07-22 Pat Name: Ambrose Villa Department: Room: Gender: Male [employer] Operator: : [id number] Requested By: Bayron Farr Order Number: [id number] Denice MD: Nicholas Gregg M.D. Measurements Intervals [place] Rate: 58 P: 49 TN: 169 QRS: -68 QRSD: 118 T: 10 QT: 435 QTc: 429 Interpretive Statements SINUS BRADYCARDIA PATTERN CONSISTENT WITH PULMONARY DISEASE LEFT ANTERIOR FASCICULAR BLOCK [QRS AXIS <= -45, QR IN I, RS IN II] Compared to ECG 06/02/2021 14:42:30 Sinus rhythm no longer present ST (T wave) deviation no longer present Electronically Signed On 07-22-2023 18:30:08 MOTHER TESTER by Nicholas Gregg M.D. [id number]
[2023-07-22 08:21] LABS: Partial Thromboplastin Time 30.2 SECONDS (23.9-36.7)
[2023-07-22] MEDS: sodium chloride 0.9% 1,000 ML 999 ML IV (08:25)
[2023-07-22 08:26] VITALS: BP 96/62; PULSE 60; O2SAT 96
[2023-07-22 08:33] LABS: Alanine Aminotransferase 16 U/L (0-41); Albumin Level 3.8 g/dL (3.5-5.2); Alkaline Phosphatase 75 U/L (40-130); Anion Gap 16.3 (5-19); Aspartate Amino Transferase 21 U/L (0-40); Blood Urea Nitrogen 23 mg/dL (8-23); Calcium 9.4 mg/dL (8.5-10.5); Carbon Dioxide 25 mmol/L (22-29); Chloride 102 mmol/L (98-107); Glucose 71 mg/dL (65-115); NT Pro B Type Natriuretic Pept 316 pg/mL (0-450); Osmolality Calculated 290 mOsm/kg (285-295); Potassium 4.3 mmol/L (3.5-5.1); Sodium 139 mmol/L (136-145); Total Bilirubin 0.7 mg/dL (0.15-1.2); Total Protein 6.8 g/dL (6.6-8.7)
[2023-07-22 08:36] LABS: INR 0.95 (0.8-1.2)
[2023-07-22 08:49] LABS: Troponin(5th) Baseline 42 ng/L (0-15)
[2023-07-22 08:58] VITALS: BP 114/66; PULSE 60; O2SAT 96
[2023-07-22 09:15] VITALS: BP 122/66; PULSE 58; O2SAT 97
--- NOTE | 2023-07-22 10:06 | ED_ITS ---
HPI - Syncope 2 General: Chief Complaint: Syncope Stated Complaint: Syncope/Knee pain Time Seen by Provider: 07/22/23 07:27 History of Present Illness: 77-year-old male presents to the emergen cy department via EMS personnel. Patient states that he had a episode where he passed out while he was walking through his kitchen. He states he had taken his antihypertensive medications and does not check his blood pressure before taking them. He states he also took his blood pressure medicine yesterday and had a similar episode after taking it. He states he felt dizzy prior to the fall and states that he hit his left knee which is causing him pain. He is on Plavix. He is alert and oriented x [address] time and situation GCS 15. Review of Systems 2 General: Reports: 10 or more systems reviewed and unremarkable except in HPI and below Card: Reports: syncope Musc: Reports: extremity pain and extremity swelling PFSH ED 2 PFSH: Medical History Chronic kidney disease Congestive heart failure Moderate aortic stenosis last echocardiogram COPD (chronic obstructive pulmonary disease) Chronically on 3 L of oxygen COPD with hypoxia Coronary artery disease CABG x 4 in 2011, history of sternal nonunion. Diabetes type 2, uncontrolled High cholesterol History of kidney stones Hx of chest wall injury Moderate aortic stenosis by prior echocardiogram Neuropathy On home O2 Renal calculi Sleep apnea On CPAP Urethral stricture, postoperative Severe panurethral stricture disease requiring multiple dilations and endoscopic treatment. Complicating treatment of stones Uric acid urolithiasis Surgical History History of quadruple bypass Hx of lithotripsy Status post placement of ureteral stent Family History Mother , at age 76 COPD (chronic obstructive pulmonary disease) Father , at age 68-aortic aneurysm No problems noted. Social History Smoking and tobacco/nicotine status: former use of tobacco/nicotine Alcohol intake: former Substance/Drug Use: never Marital status: Current occupational status: retired Current gender identity: Male Physical Exam 2 Narrative: EXAM NARRATIVE: Constitutional: the patient appears well nourished and with normal development. Vital signs reviewed as documented. HENMT: Normocephalic, atraumatic. External ears normal appearance without drainage. Nose without drainage, normal appearance. Mucus membranes moist. Neck is supple, No jugular venous distension, trachea is midline, no appreciable carotid bruits. No lymphadenopathy. No meningeal signs. Flexion, extension and lateral rotation is without pain. Eyes: Pupils are equal, round, reactive to light and accommodation. No scleral icterus. Extra-ocular movement are intact. Thorax is symmetrical and with equal rise and fall with respirations. Resp: Lungs are clear to auscultation. No wheezes, rales, crackles or ronchi at present. Cardio: Regular rate and rhythm. Positive S1, S2. No appreciable murmurs, rubs or gallops. GI: Abdominal exam reveals normal bowel sounds to all quadrants. No organomegaly. No obvious palpable masses noted. No hepatomegally appreciated. Soft, non-tender to palpation. Extremity: Extremities are non-edematous and both femoral and pedal pulses are 2+ and equal bilaterally. Moves all extremities well, sensation in all extremities. Neuro: Alert and oriented x4, person, place, time and situation. Cranial nerves II through XII are grossly intact, there is no focal neurological deficits that I can appreciate at present. Motor strength in the upper and lower extremities are equal and bilateral 5/5. Psych: Cooperative, calm, normal thought process, appropriate judgment. Skin: No lesions, rashes. No gross abnormalities noted. Back: Symmetrical, no obvious deformity, No CVA tenderness Course 2 Vital Signs: Vital signs: Vital Signs Temperature 98.4 F 07/22/23 07:19 Pulse Rate 71 07/22/23 10:54 Respiratory Rate 18 07/22/23 07:19 Blood Pressure 93/50 07/22/23 10:54 Pulse Oximetry 96 07/22/23 10:54 Oxygen Delivery Me thod Room Air 07/22/23 09:15 MDM - Syncope Medical Decision Making Physical exam completed and documented I will obtain a CBC, CMP serial cardiac enzymes CT head cervical spine given his anticoagulation and also an x-ray of his left knee. It does appear that review of his vital signs he is hypotensive I suspect his syncope is secondary to his medication and medication induced hypotension. I did advise the patient to start checking his blood pressure prior to taking his antihypertensive medications and to hold his antihypertensive medications if his systolic blood pressure was at 110 or below Medical Records I reviewed the patient's medical records. Lab Data I reviewed the patient's lab results. 07/22/23 07:55 07/22/23 07:55 Radiology Impressions Knee X-Ray 07/22/23 07:29 IMPRESSION: No acute fracture or dislocation. Laboratory Results WBC 8.02 10^3/uL (3.29-11.43) 07/22/23 07:55 RBC 4.97 10^6/uL (3.85-5.65) 07/22/23 07:55 Hgb 15.50 g/dL (11.27-16.99) 07/22/23 07:55 Hct 46.1 % (37-53) 07/22/23 07:55 MCV 92.8 fl (82-101) 07/22/23 07:55 MCH 31.2 pg (27-33) 07/22/23 07:55 MCHC 33.6 g/dL (30-55) 07/22/23 07:55 RDW 14.2 % (12.1-15.1) 07/22/23 07:55 Plt Count 141 10^3/cmm (157-399) L 07/22/23 07:55 MPV 10.6 fL (7.4-10.4) H 07/22/23 07:55 Neut % (Auto) 57.4 % 07/22/23 07:55 Lymph % (Auto) 27.1 % 07/22/23 07:55 [place] % (Auto) 9.4 % 07/22/23 07:55 Eos % (Auto) 4.6 % 07/22/23 07:55 Baso % (Auto) 0.9 % 07/22/23 07:55 Neut # (Auto) 4.61 10^3/uL (1.8-7.7) 07/22/23 07:55 Lymph # (Auto) 2.2 10^3/uL (0.8-4.8) 07/22/23 07:55 [place] # (Auto) 0.8 10^3/uL (0.2-0.9) 07/22/23 07:55 Eos # (Auto) 0.4 10^3/uL (0.0-0.8) 07/22/23 07:55 Baso # (Auto) 0.1 10^3/uL (0.0-0.1) 07/22/23 07:55 Nucleated RBC % (auto) 0 % 07/22/23 07:55 Nucleated RBCs # 0.0 /100WBC 07/22/23 07:55 PT 12.90 SECONDS (12.1-14.9) 07/22/23 07:55 INR 0.95 (0.8-1.2) 07/22/23 07:55 APTT 30.2 SECONDS (23.9-36.7) 07/22/23 07:55 Sodium 139 mmol/L (136-145) 07/22/23 07:55 Potassium 4.3 mmol/L (3.5-5.1) 07/22/23 07:55 Chloride 102 mmol/L (98-107) 07/22/23 07:55 Carbon Dioxide 25 mmol/L (22-29) 07/22/23 07:55 Anion Gap 16.3 (5-19) 07/22/23 07:55 BUN 23 mg/dL (8-23) 07/22/23 07:55 Creatinine 1.8 mg/dL (0.7-1.2) H 07/22/23 07:55 GFR Calculation Not Reportable 07/22/23 07:55 Glucose 71 mg/dL (65-115) 07/22/23 07:55 Calculated Osmolality 290 mOsm/kg (285-295) 07/22/23 07:55 Calcium 9.4 mg/dL (8.5-10.5) 07/22/23 07:55 Total Bilirubin 0.7 mg/dL (0.15-1.2) 07/22/23 07:55 AST 21 U/L (0-40) 07/22/23 07:55 ALT 16 U/L (0-41) 07/22/23 07:55 Alkaline Phosphatase 75 U/L (40-130) 07/22/23 07:55 Troponin T Baseline 42 ng/L (0-15) H 07/22/23 07:55 Troponin T 120 Minute 36.93 ng/L (0-15) H 07/22/23 09:44 Delta Troponin T -5.07 ABS# (0-10) L 07/22/23 09:44 NT-Pro-B Natriuret Pep 316 pg/mL (0-450) 07/22/23 07:55 Total Protein 6.8 g/dL (6.6-8.7) 07/22/23 07:55 Albumin 3.8 g/dL (3.5-5.2) 07/22/23 07:55 Globulin 3.0 g/dL (1.3-4.6) 07/22/23 07:55 All radiology interpretation(s) finalized by discharge EKG Data EKG 1: Interpretation: Twelve-lead EKG obtained at 826 and reviewed at 830 demonstrates sinus bradycardia ventricular rate of 58 bpm ID interval 169 QRS duration 118, QT 435, QTc [address] elevation or depression at present to demonstrate acute ischemia or infarction. Discharge Plan Discharge Patient Disposition: Home Clinical Impression: Syncope and collapse, Hypotension due to medication Accidental fall Qualifiers: Encounter type: initial encounter Qualified Code(s): W19.XXXA - Unspecified fall, initial encounter Contusion of knee, left Qualifiers: Encounter type: initial encounter Qualified Code(s): S80.02XA - Contusion of left knee, initial encounter Condition: Stable Prescriptions: No Action atorvastatin 40 mg tablet 40 mg PO DAILY clopidogrel [Plavix] 75 mg tablet 75 mg PO DAILY (DME) oxygen-air delivery systems Device See Rx Instructions .Route Rx Instructions: As directed omega 0-mxx-bsi-fish oil [Fish Oil] 300-1,000 mg capsule 1 cap PO BID tamsulosin [Flomax] 0.4 mg capsule 0.4 mg PO DAILY Qty: 14 0RF albuterol sulfate 90 mcg/actuation Hfa Aerosol Inhaler 2 puff INHALATION Q6H PRN (Reason: Wheezing) budesonide-formoterol [Symbicort] 160-4.5 mcg/actuation Hfa Aerosol Inhaler 2 puff INHALATION BID PRN (Reason: Shortness Of Breath) aspirin 81 mg Tablet,Delayed Release (Dr/Ec) 81 mg PO DAILY@0600 Lantus U-100 Insulin 100 unit/mL solution 50 unit SUBCUT DAILY@0600 glipizide 10 mg tablet 5 mg PO DAILY furosemide 40 mg tablet 20 mg PO DAILY@0600 hydrocodone-acetaminophen 5-325 mg tablet 1 tab PO Q4H PRN (Reason: pain) gabapentin 100 mg capsule 300 mg PO TID@06,12,18 potassium chloride 20 mEq tablet extended release 20 meq PO BID Discharge Orders: Discharge ED (Routine); Ordered 07/22/23 Ordered By: Bayron Farr Referrals: Radha Blevins MD [Primary Care Provider] - Discharge Diet: Advance as tolerated Discharge Activity: Resume usual activity Patient Instructions: Opioid Safety, Pain Management Activity Restrictions/Additional Instructions: Activity Restrictions/Additional Instructions: Thank you for choosing [facility] for your healthcare needs today. Please realize that you were seen in the Emergency Department and that we are providing you with an emergency medical screening exam and this may not be a complete and all inclusive of all the testing and or medical work-up that you may need to determine your ailment or severity of your illness. It is very important that you follow-up as instructed with your Primary care provider or Specialist for additional evaluation and to discuss your medical treatment plan. You may return to the Emergency Department should you have concerns or if your condition changes or worsens in any way. Coding Level of Care Code ED Spinner Frame for Adelaida Hayes
[2023-07-22 10:12] LABS: Troponin 5 2HR 36.93 ng/L (0-15)
[2023-07-22 10:14] LABS: Troponin 5 2HR Delta -5.07 ABS# (0-10)
[2023-07-22 10:54] VITALS: BP 93/50; PULSE 71; O2SAT 96
== END 2023-07-22 10:55 | disposition home or self-care (01) ==
PROVIDERS: Emergency Provider Internal Medicine; PCP Family Medicine
DX: R55 Syncope and collapse (principal); I95.2 Hypotension due to drugs; T46.5X5A Adverse effect of other antihypertensive drugs, initial encounter; S80.02XA Contusion of left knee, initial encounter; Z79.02 Long term (current) use of antithrombotics/antiplatelets; Z79.82 Long term (current) use of aspirin; Z79.4 Long term (current) use of insulin; Z79.84 Long term (current) use of oral hypoglycemic drugs; R00.1 Bradycardia, unspecified; Z87.891 Personal history of nicotine dependence; E11.22 Type 2 diabetes mellitus with diabetic chronic kidney disease; I13.0 Hypertensive heart and chronic kidney disease with heart failure and stage 1 through stage 4 chronic kidney disease, or unspecified chronic kidney disease; N18.9 Chronic kidney disease, unspecified; I50.9 Heart failure, unspecified; J44.9 Chronic obstructive pulmonary disease, unspecified; I25.10 Atherosclerotic heart disease of native coronary artery without angina pectoris; Z95.1 Presence of aortocoronary bypass graft; W18.39XA Other fall on same level, initial encounter
CPT/HCPCS: 36415; 70450; 72125; 73562; 80053; 83880; 84484; 85025; 85610; 85730; 93005; 96360; 99285; J7030

== ENCOUNTER → 2023-08-25 08:53 | Outpatient (BNVA) | payer MEDICARE, BC, SELFPAY | PROVIDERS: PCP Family Medicine; Visit Provider Nurse Practitioner Family | DX: M25.561 Pain in right knee | CPT/HCPCS: 73562 ==

== ENCOUNTER 2023-09-12 13:44 | Emergency (ER) | payer OTHER, SELFPAY ==
[2023-09-12 13:50] VITALS: BP 157/65; PULSE 81; RESP 18; TEMP 36.6; O2SAT 90
--- NOTE | 2023-09-12 14:55 | ED_ITS ---
HPI - Abdominal Pain 2 General: Chief Complaint: Abdominal Pain Stated Complaint: abd pain Time Seen by Provider: 09/12/23 14:55 Source: patient Mode of arrival: ambulatory Limitations: no limitations History of Present Illness: Patient is a very pleasant 77-year-old male here in the emergency department after he was [facility] of an abdominal aortic aneurysm that was found incidentally on lumbar plain films. Patient states he had underwent lumbar x-ray imaging prior to spinal manipulation. He was told on the x-ray he had a large 6 cm abdominal aneurysm that needed emergent evaluation. Patient since then feels like his abdomen has been bothering him although admittedly states this could just be psychologic. He states he is now worried as his has Alzheimer's and needs to be cared for so needs to know plan for her going forward if he is to have surgery. 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 Of note-looking through previous documentation he did have a 2.7 cm infrarenal abdominal aneurysm in 2020 that was stable compared to old films. No further imaging since then. MD elicited complaint: abdominal pain Pertinent past history: other (abdominal aortic aneurysm) Onset (ago): hour(s) Pain Consistency: constant Location: Diffuse Severity: mild Radiation: none Exacerbating factors: nothing Relieving factors: nothing Context: other (thinks might be psychologic from being told about the aneurysm) Associated Symptoms: Reports no associated symptoms; Denies change in bowel habits, diarrhea, dysuria, hematochezia, melena, nausea, syncope and vomiting Review of Systems 2 Card: Denies: chest pain, palpitations, irregular heart rhythm, edema, lightheadedness, syncope or pre-syncope Resp: Denies: dyspnea GI: Reports: abdominal pain; Denies: nausea, vomiting, diarrhea, change in bowel habits, hematochezia or melena : Denies: flank pain, difficulty urinating, dysuria, urinary frequency, urinary urgency or urinary hesitancy Musc: Denies: back pain Neuro: Denies: headache(s), numbness in extremities, weakness in extremities, sensory changes, difficulty walking or dizziness PFSH ED 2 PFSH: Medical History COPD with hypoxia Chronic kidney disease Renal calculi Moderate aortic stenosis by prior echocardiogram Coronary artery disease CABG x 4 in 2012, history of sternal nonunion. 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 Complicating treatment of stones Uric acid urolithiasis Hx of chest wall injury COPD (chronic obstructive pulmonary disease) Chronically on 3 L of oxygen Congestive heart failure Moderate aortic stenosis last echocardiogram Diabetes type 2, uncontrolled Sleep apnea On CPAP On home O2 History of kidney stones High cholesterol Neuropathy Surgical History Status post placement of ureteral stent History of quadruple bypass Hx of lithotripsy Family History Mother , at age 76 COPD (chronic obstructive pulmonary disease) Father , at age 68-aortic aneurysm No problems noted. Social History Smoking and tobacco/nicotine status: former use of tobacco/nicotine Alcohol intake: former Substance/Drug Use: never Marital status: Current occupational status: retired Current gender identity: Male Physical Exam 2 Const: COMMON NORMALS: no acute distress, patient oriented x3, no limitations, alert and well nourished GENERAL APPEARANCE: cooperative NUTRITIONAL APPEARANCE: obese ORIENTATION/CONSCIOUSNESS: Yes awake, Yes oriented to person, Yes oriented to place and Yes oriented to time Resp: COMMON NORMALS: normal respiratory effort and clear to auscultation bilaterally AUSCULTATION: clear to auscultation bilaterally Cardio: COMMON NORMALS: regular rate and regular rhythm RATE: regular rate RHYTHM: regular rhythm GI: COMMON NORMALS: Normal to inspection, nondistended, normoactive bowel sounds present, Soft to palpation, No hepatosplenomegaly present and no masses INSPECTION: Yes normal to inspection AUSCULTATION: Yes normoactive bowel sounds PALPATION: Yes Soft to palpation, Yes Tenderness to palpation present (GI), No Guarding due to palpation present (GI), No Rigid due to palpation and Yes No hepatosplenomegaly present Back/Pelvis: COMMON NORMALS: thoracic and lumbar spine normal to inspection and no thoracic nor lumbar tenderness Extremity: COMMON NORMALS: normal to inspection, capillary refill normal and no clubbing, cyanosis or edema GENERAL: Yes normal exam except as noted Neuro: PAULO COMA SCALE: document GCS findings [place] coma scale eye opening: Spontaneous [place] coma scale verbal response: Orientated [place] coma scale motor response: Obey commands [place] coma scale total score: 15 COMMON NORMALS: patient oriented x3, moves all extremities, no focal motor deficits, no sensory deficits noted and gait normal SENSORIUM/ORIENTATION: Yes alert, Yes oriented to person, Yes oriented to place and Yes oriented to time Skin: COMMON NORMALS: no rashes or lesions noted GENERAL SKIN EXAM: no rashes or lesions noted Course 2 Vital Signs: Vital signs: Vital Signs Temperature 97.9 F 09/12/23 13:50 Pulse Rate 81 09/12/23 13:50 Respiratory Rate 18 09/12/23 13:50 Blood Pressure 157/65 09/12/23 13:50 Pulse Oximetry 90 09/12/23 13:50 Oxygen Delivery Me thod Room Air 09/12/23 13:50 MDM - Abdominal Pain Medical Decision Making Patient is a nice 77-year-old male here worried well after he was told he had a large abdominal aortic aneurysm that was found incidentally on lumbar x-rays. Blood work here is unremarkable. CT imaging obtained which shows his known infrarenal abdominal aortic aneurysm measuring 2.7 cm. This is stable since 2020. Patient is grateful for this news. He can continue to follow-up with primary care. Lab Data 09/12/23 15:20 09/12/23 15:20 Labs/Radiology: Radiology Impressions Abdomen/Pelvis CTA 09/12/23 15:07 IMPRESSION: 1. 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 Follow-up imaging in 5 years is recommended. 2. Incidental findings above. Laboratory Results WBC 8.76 10^3/uL (3.29-11.43) 09/12/23 15:20 RBC 5.28 10^6/uL (3.85-5.65) 09/12/23 15:20 Hgb 16.80 g/dL (11.27-16.99) 09/12/23 15:20 Hct 51.2 % (37-53) 09/12/23 15:20 MCV 97.0 fl (82-101) 09/12/23 15:20 MCH 31.8 pg (27-33) 09/12/23 15:20 MCHC 32.8 g/dL (30-55) 09/12/23 15:20 RDW 14.5 % (12.1-15.1) 09/12/23 15:20 Plt Count 163 10^3/cmm (157-399) 09/12/23 15:20 MPV 11.0 fL (7.4-10.4) H 09/12/23 15:20 Neut % (Auto) 50.3 % 09/12/23 15:20 Lymph % (Auto) 35.7 % 09/12/23 15:20 [place] % (Auto) 6.2 % 09/12/23 15:20 Eos % (Auto) 6.7 % 09/12/23 15:20 Baso % (Auto) 0.9 % 09/12/23 15:20 Neut # (Auto) 4.40 10^3/uL (1.8-7.7) 09/12/23 15:20 Lymph # (Auto) 3.1 10^3/uL (0.8-4.8) 09/12/23 15:20 [place] # (Auto) 0.5 10^3/uL (0.2-0.9) 09/12/23 15:20 Eos # (Auto) 0.6 10^3/uL (0.0-0.8) 09/12/23 15:20 Baso # (Auto) 0.1 10^3/uL (0.0-0.1) 09/12/23 15:20 Nucleated RBC % (auto) 0 % 09/12/23 15:20 Nucleated RBCs # 0.0 /100WBC 09/12/23 15:20 Sodium 145 mmol/L (136-145) 09/12/23 15:20 Potassium 4.2 mmol/L (3.5-5.1) 09/12/23 15:20 Chloride 104 mmol/L (98-107) 09/12/23 15:20 Carbon Dioxide 31 mmol/L (22-29) H 09/12/23 15:20 Anion Gap 14.2 (5-19) 09/12/23 15:20 BUN 15 mg/dL (8-23) 09/12/23 15:20 Creatinine 1.4 mg/dL (0.7-1.2) H 09/12/23 15:20 GFR Calculation Not Reportable 09/12/23 15:20 Glucose 72 mg/dL (65-115) 09/12/23 15:20 Calculated Osmolality 299 mOsm/kg (285-295) H 09/12/23 15:20 Calcium 9.8 mg/dL (8.5-10.5) 09/12/23 15:20 Total Bilirubin 0.8 mg/dL (0.15-1.2) 09/12/23 15:20 AST 21 U/L (0-40) 09/12/23 15:20 ALT 18 U/L (0-41) 09/12/23 15:20 Alkaline Phosphatase 80 U/L (40-130) 09/12/23 15:20 Total Protein 7.7 g/dL (6.6-8.7) 09/12/23 15:20 Albumin 4.4 g/dL (3.5-5.2) 09/12/23 15:20 Globulin 3.3 g/dL (1.3-4.6) 09/12/23 15:20 Lipase 16 U/L (13-60) 09/12/23 15:20 All radiology interpretation(s) finalized by discharge Discharge Plan Discharge Condition: Stable Prescriptions: No Action clopidogrel [Plavix] 75 mg tablet 75 mg PO DAILY (DME) oxygen-air delivery systems Device See Rx Instructions .Route Rx Instructions: As directed omega 9-qbv-onu-fish oil [Fish Oil] 300-1,000 mg capsule 1 cap PO BID albuterol sulfate 90 mcg/actuation Hfa Aerosol Inhaler 2 puff INHALATION Q6H PRN (Reason: Wheezing) aspirin 81 mg Tablet,Delayed Release (Dr/Ec) 81 mg PO DAILY@0600 Lantus U-100 Insulin 100 unit/mL solution 50 unit SUBCUT DAILY@0600 diclofenac sodium 1 % Gel 2 g TOPICAL QID Rx Instructions: apply to single elbow, wrist or hand; for hand includes palm/fingers/back of hand methocarbamol 500 mg Tablet 500 mg PO TID Discharge Orders: Discharge ED (Routine); Ordered 09/12/23 Ordered By: Sommer Negron Referrals: Radha Blevins MD [Primary Care Provider] - Activity Restrictions/Additional Instructions: As we discussed you already had a known infrarenal abdominal aortic aneurysm that was found in 2020. On today's scan-it has not changed in dimension and is stable. This can continued to be followed up with your primary care provider. Coding Level of Care Code ED [employer] Founder for Adelaida Hayes
--- NOTE | 2023-09-12 15:07 | CTR_ITS ---
PROCEDURE INFORMATION: Exam: CTA Abdomen and Pelvis With Contrast Exam date and time: 09/12/2023 4:02 PM Age: 77 years old Clinical indication: Abdominal pain; Generalized; Additional info: Abdominal pain; Told he has an aneurysm TECHNIQUE: Imaging protocol: Computed tomographic angiography of the abdomen and pelvis with contrast. Exam focused on the arteries. 3D rendering (Not supervised by radiologist): MIP and/or 3D reconstructed images were created by the technologist. Radiation optimization: All CT scans at this facility use at least one of these dose optimization techniques: automated exposure control; mA and/or kV adjustment per patient size (includes targeted exams where dose is matched to clinical indication); or iterative reconstruction. Contrast material: OMNI 350; Contrast volume: 100 ml; Contrast route: INTRAVENOUS (IV); COMPARISON: CT kidney stone [id number] 06/03/2021 10:38 AM RADIATION DOSE METRICS: Total DLP (mGy-cm): 880.65 FINDINGS: Lungs: Lung bases are clear. Aorta: There is moderate aortic atherosclerotic disease. Infrarenal abdominal aorta is focally ectatic measuring up to 2.7 x 2.7 cm on axial series 4, image 100, stable since 06/03/2021. Celiac trunk and mesenteric arteries: No significant stenosis in the celiac, superior mesenteric or inferior mesenteric arteries. Renal arteries: Mild calcific plaque with less than 50% stenosis of the right renal artery origin. Left renal artery is normal. Right iliac arteries: Moderate calcific plaque in the right common and external iliac arteries with less than 50% stenosis. There is less than 50% stenosis at the origin of the right internal iliac artery. Right femoral/popliteal arteries: There is moderate calcific plaque in the visible portions of the right common and proximal superficial and deep femoral arteries with less than 50% stenosis. Left iliac arteries: There is moderate calcific plaque in the left common and external iliac arteries with less than 50% stenosis. There is 50-60% stenosis at the origin of the left internal iliac artery. Left femoral/popliteal arteries: There is moderate calcific plaque in the left common, superficial and deep femoral arteries with less than 50% stenosis. Liver: The liver is normal. Gallbladder and bile ducts: Cholelithiasis is present. There is no sign of cholecystitis. Pancreas: The pancreas is unremarkable. Spleen: The spleen is unremarkable. Adrenal glands: The adrenal glands are unremarkable. Kidneys and ureters: There is a simple cyst in the right kidney. There is no hydronephrosis or stones. Stomach and bowel: The stomach is decompressed, preventing meaningful evaluation of wall thickness. The small bowel is nondilated. There is pancolonic diverticulosis. There is no sign of diverticulitis. Appendix: The appendix is normal. Intraperitoneal space: There is no free air or significant intraperitoneal free fluid. Lymph nodes: There is no lymphadenopathy in the retroperitoneum, mesentery, pelvis or inguinal regions. Urinary bladder: There is a small diverticulum at the bladder apex. Reproductive: There is nonspecific moderate enlargement of the prostate gland. Bones/joints: There is moderate degenerative disease in the lumbar spine. The pelvis and hips are unremarkable. Soft tissues: The abdominal wall is intact. CT/CT angio abdomen pelvis [id number] IMPRESSION: 1. 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 Follow-up imaging in 5 years is recommended. 2. Incidental findings above.
[2023-09-12 15:31] LABS: Basophils # 0.1 10^3/uL (0.0-0.1); Basophils % 0.9 %; Eosinophils # 0.6 10^3/uL (0.0-0.8); Eosinophils % 6.7 %; Hematocrit 51.2 % (37-53); Lymphocytes # 3.1 10^3/uL (0.8-4.8); Lymphocytes % 35.7 %; Mean Corpuscular HGB Conc 32.8 g/dL (30-55); Mean Corpuscular Hemoglobin 31.8 pg (27-33); Monocytes # 0.5 10^3/uL (0.2-0.9); Monocytes % 6.2 %; Neutrophils % 50.3 %; Nucleated Red Blood Cells % 0 %; Platelet Count 163 10^3/cmm (157-399); Red Blood Count 5.28 10^6/uL (3.85-5.65); Red Cell Distribution Width 14.5 % (12.1-15.1); White Blood Count 8.76 10^3/uL (3.29-11.43)
[2023-09-12 15:46] LABS: Alanine Aminotransferase 18 U/L (0-41); Albumin Level 4.4 g/dL (3.5-5.2); Alkaline Phosphatase 80 U/L (40-130); Anion Gap 14.2 (5-19); Aspartate Amino Transferase 21 U/L (0-40); Blood Urea Nitrogen 15 mg/dL (8-23); Calcium 9.8 mg/dL (8.5-10.5); Carbon Dioxide 31 mmol/L (22-29); Chloride 104 mmol/L (98-107); Creatinine Clr Calc Pharmacy 52.1328; Globulin 3.3 g/dL (1.3-4.6); Glucose 72 mg/dL (65-115); Lipase 16 U/L (13-60); Osmolality Calculated 299 mOsm/kg (285-295); Potassium 4.2 mmol/L (3.5-5.1); Sodium 145 mmol/L (136-145); Total Bilirubin 0.8 mg/dL (0.15-1.2); Total Protein 7.7 g/dL (6.6-8.7)
[2023-09-12] MEDS: iohexol 350 mg/mL 500 mL Btl (per mL) IV (16:01)
[2023-09-12 16:46] LABS: Add Urine Microscopic? NO; Charge for UA Resulting for Rev
[2023-09-12 16:48] LABS: Bilirubin Urine Neg (Negative); Blood Urine Neg (Negative); Glucose Urine UA 4+ (Normal); Ketones Urine Negative (Negative); Leukocyte Esterase Urine Negative (Negative); Nitrate Urine Negative (Negative); Protein Urine Neg (Negative); Specific Gravity, Urine 1.015 (1.005-1.030); Urine Appearance Clear (CLEAR); Urine Color Light yellow (Yellow); Urobilinogen Urine Neg (Negative); pH Urine 5 (5-7)
[2023-09-12 17:02] VITALS: BP 157/65; PULSE 83; RESP 16; TEMP 36.6; O2SAT 96
== END 2023-09-12 17:02 | disposition home or self-care (01) ==
PROVIDERS: Emergency Provider Physician Assistant; PCP Family Medicine
DX: I71.43 Infrarenal abdominal aortic aneurysm, without rupture (principal); Z79.02 Long term (current) use of antithrombotics/antiplatelets; Z79.82 Long term (current) use of aspirin; Z79.4 Long term (current) use of insulin; Z87.891 Personal history of nicotine dependence; J44.9 Chronic obstructive pulmonary disease, unspecified; E11.22 Type 2 diabetes mellitus with diabetic chronic kidney disease; N18.9 Chronic kidney disease, unspecified; Z95.1 Presence of aortocoronary bypass graft; I25.810 Atherosclerosis of coronary artery bypass graft(s) without angina pectoris; I50.9 Heart failure, unspecified
CPT/HCPCS: 74174; 80053; 81003; 83690; 85025; 99285; Q9967

== ENCOUNTER 2023-09-23 09:47 | Outpatient (CLI) | payer OTHER, MEDICARE, SELFPAY ==
--- NOTE | 2023-09-23 10:15 | MR_ITS ---
WS: [id number] MRI LEFT KNEE HISTORY: M25.562 - Pain in left knee COMPARISON: 07/22/2023 Anterior cruciate ligament: Intact. Posterior cruciate ligament: Intact. Medial collateral ligament: Increased T2 signal in the super articular portion of the MCL. MCL is nelida ng displaced from the joint line. Partial high-grade tear of the proximal MCL with adjacent edema. Posterior lateral corner structures: Intact. Medial menisci: Intrasubstance degeneration in the posterior horn. The increased signal does extend t o the inferior articular surface. This is probably a horizontal tear. The signal is only intermediate . Lateral meniscus: Intact. Normal signal, size and shape. Extensor mechanism: Distal quadriceps tendon and patellar tendons are intact. Fluid and soft tissue: Small suprapatellar joint effusion. No Mooney's cyst. Large amount of soft tiss ue edema along the medial femoral condyle. Osseous and articular structures: Patellofemoral compartment: Normal. Medial compartment: Very mild narrowing of the lateral compartment with mild chondromalacia. Very sm all marginal osteophytes. There is a small amount of marrow edema in the femoral condyle just deep to the MCL. There is MCL partial separation from the medial femoral condyle. Lateral compartment: Mild narrowing of the lateral compartment. Mild chondromalacia. No marrow edema. IMPRESSION: 1. Partial high-grade tear involving the proximal MCL with adjacent edema and displacement from the femoral condyle. 2. Small amount of marrow edema in the medial femoral condyle just deep to the MCL tear. 3. Horizontal tear posterior horn medial meniscus.
--- NOTE | 2023-09-23 11:00 | MR_ITS ---
WS: [id number] MRI RIGHT KNEE HISTORY: M25.561 - Pain in right knee COMPARISON: Radiographs 08/25/2023 Anterior cruciate ligament: Intact. Posterior cruciate ligament: Intact. Medial collateral ligament: Intact. Posterior lateral corner structures: Intact. Medial menisci: Horizontal tear in the posterior horn extends to the inferior articular surface. Lateral meniscus: Mild globular signal in the posterior horn but no tear. Extensor mechanism: Distal quadriceps tendon and patellar tendons are intact. Fluid and soft tissue: Small suprapatellar joint effusion. Tiny amount of fluid in the Mooney's cyst. Osseous and articular structures: Patellofemoral compartment: Very mild thinning and fissuring of the cartilage towards the patellar em inence. No marrow edema. Medial compartment: Mild narrowing of the medial compartment with mild diffuse chondromalacia. No mar row edema. No fracture. Lateral compartment: Mild joint space narrowing. Ovoid 4 mm body in the lateral compartment close to the intercondylar notch. This is of mixed signal and may be cartilage or osseous fragment. IMPRESSION: 1. Horizontal tear posterior horn medial meniscus. Tear extends to the intra-articular surface. 2. Ovoid 4 mm loose body in the lateral compartment towards the intercondylar notch. Osseous or cart ilaginous fragment likely. 3. No marrow edema or fracture. 4. 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
== END 2023-09-23 09:48 | disposition home or self-care (01) ==
LOC: RAD 09:47
PROVIDERS: PCP Family Medicine; Visit Provider Nurse Practitioner Family
DX: M25.561 Pain in right knee (principal); M25.562 Pain in left knee; S83.241A Other tear of medial meniscus, current injury, right knee, initial encounter; M23.41 Loose body in knee, right knee; M17.11 Unilateral primary osteoarthritis, right knee
CPT/HCPCS: 73721

== ENCOUNTER → 2023-10-01 07:56 | Outpatient (BNVA) | payer OTHER, SELFPAY | PROVIDERS: PCP Family Medicine; Referring Provider Family Medicine; Visit Provider Specialist | DX: M17.0 Bilateral primary osteoarthritis of knee | CPT/HCPCS: 73560; 73565 ==

== ENCOUNTER 2023-10-01 10:01 | Outpatient (CLI) | payer OTHER, SELFPAY | END 2023-10-01 10:02 | disposition home or self-care (01) | LOC: SPT 10:01 | PROVIDERS: PCP Family Medicine; Visit Provider Specialist | DX: Z46.89 Encounter for fitting and adjustment of other specified devices (principal); M25.562 Pain in left knee | CPT/HCPCS: 20610; 97760; 99204; L1812 ==

== ENCOUNTER → 2023-10-22 11:08 | Outpatient (BNVA) | payer OTHER, SELFPAY | PROVIDERS: Visit Provider Internal Medicine Cardiovascular Disease | DX: I50.32 Chronic diastolic (congestive) heart failure (principal); I25.10 Atherosclerotic heart disease of native coronary artery without angina pectoris; E78.5 Hyperlipidemia, unspecified; E11.65 Type 2 diabetes mellitus with hyperglycemia; Z86.79 Personal history of other diseases of the circulatory system; Z87.891 Personal history of nicotine dependence; Z79.4 Long term (current) use of insulin | CPT/HCPCS: 99214 ==

== ENCOUNTER 2023-11-06 06:00 | Outpatient (RCR) | payer OTHER, SELFPAY | END 2023-11-21 23:59 | disposition home or self-care (01) | LOC: APT 06:00 | PROVIDERS: Visit Provider Specialist | DX: M25.561 Pain in right knee (principal); M25.562 Pain in left knee | CPT/HCPCS: 97110; 97530 ==

== ENCOUNTER 2024-02-18 10:42 | Inpatient (IN) | payer OTHER, MEDICARE, SELFPAY ==
[2024-02-18] VITALS (11 sets, daily range): BP systolic 102–135; BP diastolic 56–78; PULSE 62–89; RESP 18; TEMP 36.8–37.6; O2SAT 90–97; BMI 34.2; BMI 36.8
--- NOTE | 2024-02-18 10:49 | XR_ITS ---
WS: [id number] Exam: XR chest 1V portable [id number] Date/Time of Exam: 02/18/2024 11:05 AM Reason For Exam: Shortness of breath Comparison 06/02/2021. The lungs are fully expanded. Chronic changes in the LEFT base with pleural thickening at the LEFT co stophrenic angle. Numerous old bilateral rib fractures. Plate and screw fixation of several LEFT rib fractures. Signs of previous CABG surgery and median sternotomy. Heart size top limits normal. The me diastinum is normal in contour. XR/XR chest 1V portable [id number] IMPRESSION: 1. No acute cardiopulmonary finding. 2. Chronic LEFT lower lobe changes and chronic LEFT pleural thickening as noted above.
--- NOTE | 2024-02-18 10:50 | ECG_ITS ---
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 Measurements Intervals [place] Rate: 84 P: 70 ND: 157 QRS: -75 QRSD: 114 T: 57 QT: 364 QTc: 432 Interpretive Statements SINUS RHYTHM WITH OCCASIONAL VENTRICULAR PREMATURE COMPLEXES PATTERN CONSISTENT WITH PULMONARY DISEASE INFERIOR MYOCARDIAL INFARCTION , PROBABLY OLD [40+ ms Q WAVE AND/OR ST/T ABNORMALITY IN II/aVF] Compared to ECG 07/22/2023 08:26:58 Ventricular premature complex(es) now present Myocardial infarct finding now present Sinus bradycardia no longer present Left anterior fascicular block no longer present Electronically Signed On 02-19-2024 9:00:39 CDT by Hansa Humphrey M.D. [id number]
[2024-02-18] MEDS: albuterol 2.5 mg/3 mL Neb INHALATION (11:04)
[2024-02-18] MEDS: ipratropium-albuterol 3 mL Neb INHALATION (11:04)
[2024-02-18 11:09] LABS: Basophils % 0.6 %; Eosinophils % 0.4 %; Hematocrit 44.3 % (37-53); Lymphocytes # 0.4 10^3/uL (0.8-4.8); Mean Corpuscular HGB Conc 34.3 g/dL (30-55); Mean Corpuscular Hemoglobin 31.9 pg (27-33); Mean Corpuscular Volume 93.1 fl (82-101); Mean Platelet Volume 11.2 fL (7.4-10.4); Monocytes # 0.3 10^3/uL (0.2-0.9); Monocytes % 5.7 %; Neutrophils # 4.64 10^3/uL (1.8-7.7); Neutrophils % 85.9 %; Nucleated Red Blood Cells % 0 %; Platelet Count 80 10^3/cmm (157-399); Red Blood Count 4.76 10^6/uL (3.85-5.65); Red Cell Distribution Width 13.6 % (12.1-15.1)
--- NOTE | 2024-02-18 11:16 | ED_ITS ---
HPI - Fever 2 General: Chief Complaint: Fever Stated Complaint: Fever Time Seen by Provider: 02/18/24 10:46 History of Present Illness: 78-year-old man with a history of COPD a nd chronic hypoxemic respiratory failure on 3-4 L nasal cannula at all times at home, coronary artery disease status post CABG on Plavix and diabetes who presents emergency room with shortness of breath cough fever and malaise for the last several days now. He become so short of breath today could not get up. He was hypoxemic on his home 4 L. He has been having fevers. They report a temp of 102. He is 99.7 here. No altered mental status. No focal motor deficits. He says he and a friend both became sick after going to a restaurant recently. Related Data Home Medications Medication Instructions Recorded Confirmed insulin glargine 100 unit/mL 50 unit SUBCUT DAILY@0600 07/19/19 02/18/24 subcutaneous solution (Lantus U-100 Insulin) clopidogrel 75 mg tablet (Plavix) 75 mg PO DAILY 08/02/21 02/18/24 oxygen-air delivery systems 08/02/21 02/18/24 omega 9-myc-bwi-fish oil 300 1 cap PO BID 03/05/22 02/18/24 mg-1,000 mg capsule (Fish Oil) diclofenac sodium 1 % topical gel 2 g topical QID 09/12/23 02/18/24 methocarbamol 500 mg tablet 500 mg PO TID muscle spasm 09/12/23 02/18/24 aspirin 81 mg chewable tablet 81 mg PO DAILY 02/18/24 02/18/24 atorvastatin 80 mg tablet 40 mg PO QPM 02/18/24 02/18/24 empagliflozin 25 mg tablet 25 mg PO DAILY 02/18/24 02/18/24 (Jardiance) folic acid 1 mg tablet 1 mg PO DAILY 02/18/24 02/18/24 furosemide 40 mg tablet (Lasix) 40 mg PO QAM 02/18/24 02/18/24 glipizide 10 mg tablet 10 mg PO BID 02/18/24 02/18/24 lisinopril 10 mg tablet 5 mg PO DAILY 02/18/24 02/18/24 Previous Rx's Medication Instructions Recorded hinged knee brace, bilateral #1 ea 10/01/23 Allergies Allergy/AdvReac Type Severity Reaction Status Date / Time Penicillins Allergy ALGY-Difficulty Verified 10/22/23 11:35 Breathing Review of Systems 2 Narrative: Constitutional symptoms: Negative except as documented in HPI. Skin symptoms: Negative except as documented in HPI. Eye symptoms: Negative except as documented in HPI. ENMT symptoms: Negative except as documented in HPI. Respiratory symptoms: Negative except as documented in HPI. Cardiovascular symptoms: Negative except as documented in HPI. Gastrointestinal symptoms: Negative except as documented in HPI. Genitourinary symptoms: Negative except as documented in HPI. Musculoskeletal symptoms: Negative except as documented in HPI. Neurologic symptoms: Negative except as documented in HPI. Psychiatric symptoms: Negative except as documented in HPI. Endocrine symptoms: Negative except as documented in HPI. PFSH ED 2 PFSH: Medical History COPD with hypoxia Chronic kidney disease Renal calculi Moderate aortic stenosis by prior echocardiogram Coronary artery disease CABG x 4 in 2011, history of sternal nonunion. 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 Complicating treatment of stones Uric acid urolithiasis Hx of chest wall injury COPD (chronic obstructive pulmonary disease) Chronically on 3 L of oxygen Congestive heart failure Moderate aortic stenosis last echocardiogram Diabetes type 2, uncontrolled Sleep apnea On CPAP On home O2 History of kidney stones High cholesterol Neuropathy Surgical History Status post placement of ureteral stent History of quadruple bypass Hx of lithotripsy Family History Mother , at age 76 COPD (chronic obstructive pulmonary disease) Father , at age 68-aortic aneurysm No problems noted. Social History Smoking and tobacco/nicotine status: former use of tobacco/nicotine Alcohol intake: former Substance/Drug Use: never Marital status: Current occupational status: retired Current gender identity: Male Physical Exam 2 Narrative: EXAM NARRATIVE: General: Alert, no acute distress. Skin: Warm, dry. Head: Normocephalic, atraumatic. Neck: Supple, trachea midline. Eye: Extraocular movements are intact. Ears, nose, mouth and throat: Tacky oral mucosa Cardiovascular: Regular rate and rhythm, Normal peripheral perfusion. Respiratory: coarse, scattered wheeze, mild increased wob. tachypnea, breath sounds are equal, Symmetrical chest wall expansion. Gastrointestinal: Soft, Nontender, Non distended, Normal bowel sounds. Musculoskeletal: Normal ROM, no deformity. Neurological: Alert and oriented to person, place, time, and situation, No focal neurological deficit observed. Psychiatric: Cooperative, appropriate mood & affect. Course 2 Vital Signs: Vital signs: Vital Signs Temperature 99.7 F H 02/18/24 10:48 Pulse Rate 73 02/18/24 13:00 Respiratory Rate 18 02/18/24 11:05 Blood Pressure 135/70 02/18/24 13:00 Pulse Oximetry 91 02/18/24 13:00 Oxygen Delivery Me thod Nasal Cannula 02/18/24 11:07 Oxygen Flow Rate 4 02/18/24 13:00 MDM - Fever Medical Decision Making Differential diagnosis for patient with shortness of breath includes but is not limited to and based on the above HPI, review of systems and physical exam: Pneumonia. Bronchitis. Asthma or COPD with acute exacerbation. Acute coronary syndrome / HI. Pulmonary embolism. Anxiety. Congestive heart failure. Viral infections including influenza and Covid-19. Atrial fibrillation. Anxiety. Pleural effusion. Pneumothorax. Workup: Lab work, chest X-ray and EKG ordered to evaluate, rule in and rule out above pathologies EKG: Time 10:58 AM. Rate 84. Normal sinus rhythm, No ST-T changes, PVCs, normal AK & QRS intervals, This was reviewed and interpreted by myself the ER physician at 11:01 AM Chest x-ray: Some chronic changes. No acute process. No infiltrate. No pneumothorax. This was reviewed and interpreted by myself the ER physician. Lab Review: Laboratory results were reviewed and interpreted by myself the emergency room physician. No leukocytosis. No anemia. Platelets are low at 80. BUN and creatinine are slightly elevated at 16 and 1.3 Which is at or below his baseline. He has some chronic kidney disease. Respiratory panel is negative. AB.5 10/18/1942 with an 89% saturation on 4 L nasal cannula CTA chest with PE protocol: No evidence of PE. No infiltrates. This was reviewed and interpreted by myself the emergency room physician. I also reviewed the radiology report. Consultation: I spoke with Dr. Humphrey who is on-call for cardiology. He recommends aspirin and Lovenox. Patient is already on Plavix. Consultation: I spoke with Dr. Greenberg who is on-call for the hospitalist. She agrees to admission of the patient. I reviewed the patient's medical record. Reexamination: Patient remained stable. Work of breathing has improved. Still some mild scattered wheeze. No altered mental status. No focal motor deficits. Assessment and plan: COPD with acute exacerbation Acute on chronic hypoxemic respiratory failure Non-ST elevation myocardial infarction -IV Levaquin, IV Solu-Medrol and 2 updrafts in the emergency room. ?Therapeutic Lovenox and full-strength aspirin per cardiology. -I discussed the patient with the hospitalist on-call who is admitting the patient. - Discussed findings and plan with patient. Answered any questions. - All laboratory values were reviewed and interpreted personally by myself, the ER physician - All imaging was reviewed and interpreted personally by myself, the ER physician. - Evaluation and treatment of this problem were appropriate in the emergency setting -I spent a total of >35 minutes of critical care time managing the patient, independent of any other practitioner. -The time involved in the performance of separately reportable procedures was not counted towards critical care time. Lab Data 02/18/24 10:55 02/18/24 10:55 Radiology Impressions Chest X-Ray 02/18/24 10:49 IMPRESSION: 1. No acute cardiopulmonary finding. 2. Chronic LEFT lower lobe changes and chronic LEFT pleural thickening as noted above. Chest CTA 02/18/24 13:25 IMPRESSION: 1. No evidence of pulmonary embolus. 2. No acute pulmonary infiltrates. Laboratory Results WBC 5.40 10^3/uL (3.29-11.43) 02/18/24 10:55 RBC 4.76 10^6/uL (3.85-5.65) 02/18/24 10:55 Hgb 15.20 g/dL (11.27-16.99) 02/18/24 10:55 Hct 44.3 % (37-53) 02/18/24 10:55 MCV 93.1 fl (82-101) 02/18/24 10:55 MCH 31.9 pg (27-33) 02/18/24 10:55 MCHC 34.3 g/dL (30-55) 02/18/24 10:55 RDW 13.6 % (12.1-15.1) 02/18/24 10:55 Plt Count 80 10^3/cmm (157-399) L 02/18/24 10:55 MPV 11.2 fL (7.4-10.4) H 02/18/24 10:55 Neut % (Auto) 85.9 % 02/18/24 10:55 Lymph % (Auto) 7.0 % 02/18/24 10:55 [place] % (Auto) 5.7 % 02/18/24 10:55 Eos % (Auto) 0.4 % 02/18/24 10:55 Baso % (Auto) 0.6 % 02/18/24 10:55 Neut # (Auto) 4.64 10^3/uL (1.8-7.7) 02/18/24 10:55 Lymph # (Auto) 0.4 10^3/uL (0.8-4.8) L 02/18/24 10:55 [place] # (Auto) 0.3 10^3/uL (0.2-0.9) 02/18/24 10:55 Eos # (Auto) 0.0 10^3/uL (0.0-0.8) 02/18/24 10:55 Baso # (Auto) 0.0 10^3/uL (0.0-0.1) 02/18/24 10:55 Nucleated RBC % (auto) 0 % 02/18/24 10:55 Nucleated RBCs # 0.0 /100WBC 02/18/24 10:55 Specimen Type Arterial 02/18/24 11:08 Sample Site Brachial, left 02/18/24 11:08 ABG pH 7.54 (7.35-7.45) H 02/18/24 11:08 ABG pCO2 27.5 mmHg (35-45) L 02/18/24 11:08 ABG pO2 45.1 mmHg (80.0-100.0) L 02/18/24 11:08 ABG PO2/FiO2 Ratio 125 02/18/24 11:08 ABG HCO3 23.4 mmol/L (22-26) 02/18/24 11:08 ABG O2 Saturation 89.0 02/18/24 11:08 ABG Base Excess 2.2 mmol/L (-2.0-2.0) H 02/18/24 11:08 Mario Test N/a 02/18/24 11:08 A-a O2 Gradient 23.0 mmHg (5-10) H 02/18/24 11:08 Hematocrit 47.5 % (42-52) 02/18/24 11:08 Hgb O2 Saturation 86.7 % (95-100) L 02/18/24 11:08 Carboxyhemoglobin 1.6 %THgb (0.4-20.1) 02/18/24 11:08 Methemoglobin 0.9 % (0.4-1.5) 02/18/24 11:08 Total Hemoglobin 15.5 g/dL (14-18) 02/18/24 11:08 Sodium 135.0 mmol/L (131-143) 02/18/24 11:08 Potassium 3.9 mmol/L (3.5-5.0) 02/18/24 11:08 Glucose 293.0 mg/dL (70-115) H 02/18/24 11:08 Ionized Calcium 1.1 mmol/L (1.1-1.4) 02/18/24 11:08 O2 Delivery Device Nc 02/18/24 11:08 O2 Liters/Min 4.0 % 02/18/24 11:08 FiO2 36.0 % 02/18/24 11:08 Production Supervisor Off Shift ID Amh 02/18/24 11:08 Sodium 135 mmol/L (136-145) L 02/18/24 10:55 Potassium 4.0 mmol/L (3.5-5.1) 02/18/24 10:55 Chloride 99 mmol/L (98-107) 02/18/24 10:55 Carbon Dioxide 22 mmol/L (22-29) 02/18/24 10:55 Anion Gap 18.0 (5-19) 02/18/24 10:55 BUN 16 mg/dL (8-23) 02/18/24 10:55 Creatinine 1.3 mg/dL (0.7-1.2) H 02/18/24 10:55 GFR Calculation Not Reportable 02/18/24 10:55 Glucose 301 mg/dL (65-115) H 02/18/24 10:55 Calculated Osmolality 292 mOsm/kg (285-295) 02/18/24 10:55 Lactic Acid 2.2 mmol/L (0.5-2.2) 02/18/24 10:55 Calcium 8.4 mg/dL (8.5-10.5) L 02/18/24 10:55 Total Bilirubin 1.3 mg/dL (0.15-1.2) H 02/18/24 10:55 AST 32 U/L (0-40) 02/18/24 10:55 ALT 17 U/L (0-41) 02/18/24 10:55 Alkaline Phosphatase 74 U/L (40-130) 02/18/24 10:55 Troponin T Baseline 202 ng/L (0-15) H* 02/18/24 10:55 Troponin T 120 Minute 271.6 ng/L (0-15) H 02/18/24 12:49 Delta Troponin T 69.6 ABS# (0-10) H* 02/18/24 12:49 C-Reactive Protein 71.3 mg/L (0.0-4.9) H 02/18/24 10:55 NT-Pro-B Natriuret Pep 606 pg/mL (0-450) H 02/18/24 10:55 Total Protein 5.4 g/dL (6.6-8.7) L 02/18/24 10:55 Albumin 3.6 g/dL (3.5-5.2) 02/18/24 10:55 Globulin 1.8 g/dL (1.3-4.6) 02/18/24 10:55 Procalcitonin 1.10 ng/mL (0-0.5) H 02/18/24 10:55 Urine Color Yellow (Yellow) 02/18/24 13:49 Urine Appearance Clear (CLEAR) 02/18/24 13:49 Urine pH 5.5 (5-7) 02/18/24 13:49 Ur Specific Pep 1.013 (1.005-1.030) 02/18/24 13:49 Urine Protein 1+ (Negative) A 02/18/24 13:49 Urine Glucose (UA) 3+ (Normal) H 02/18/24 13:49 Urine Ketones Negative (Negative) 02/18/24 13:49 Urine Blood 1+ (Negative) A 02/18/24 13:49 Urine Nitrate Negative (Negative) 02/18/24 13:49 Urine Bilirubin Negative (Negative) 02/18/24 13:49 Urine Urobilinogen 1.0 mg/dL (Negative) 02/18/24 13:49 Ur Leukocyte Esterase Negative (Negative) 02/18/24 13:49 Urine RBC 0-2 /hpf (0-2) 02/18/24 13:49 Urine WBC 0-5 /hpf (0-5) 02/18/24 13:49 Ur Squamous Epith Cells 0-5 /hpf (0-5) 02/18/24 13:49 Amorphous Sediment Not Reportable 02/18/24 13:49 Urine Bacteria None seen /hpf (NONE) 02/18/24 13:49 Hyaline Casts 5.77 /lpf 02/18/24 13:49 Coronavirus 229E (PCR) Cancelled 02/18/24 11:21 SARS-CoV-2 (PCR) Cancelled 02/18/24 11:21 All radiology interpretation(s) finalized by discharge Discharge Plan Discharge Patient Disposition: Admitted As Inpatient Clinical Impression: COPD with acute exacerbation, Acute on chronic hypoxic respiratory failure, Non-ST elevated myocardial infarction, Acute upper respiratory infection, Fever Condition: Stable Coding Level of Care Code ED Electronics Technician Apprentice for Adelaida Hayes
[2024-02-18] MEDS: methylPREDNISolone sod succ 125 mg/2 mL INJ IVP (11:17)
[2024-02-18 11:20] LABS: ABG PCO2 27.5 mmHg (35-45); ABG PH Result 7.54 (7.35-7.45); Arterial Blood Gas Hematocrit 47.5 % (42-52); Base Excess ABG 2.2 mmol/L (-2.0-2.0); Blood Gas Operator Identificat AMH; Blood Gas Sample Site Brachial, left; Blood Gas Sample Type Arterial; Carboxyhemoglobin 1.6 %THgb (0.4-20.1); HCO3 ABG 23.4 mmol/L (22-26); HGB O2 Sat 86.7 % (95-100); Ionized Calcium Level - ABG 1.1 mmol/L (1.1-1.4); Methemoglobin 0.9 % (0.4-1.5); Oxygen Device NC; PO2 ABG 45.1 mmHg (80.0-100.0); PO2 FiO2 Ratio Arterial Blood 125; Potassium Level - ABG 3.9 mmol/L (3.5-5.0); Total Hemoglobin 15.5 g/dL (14-18)
[2024-02-18 11:24] LABS: Lactic Sepsis W/Reflex 2.2 mmol/L (0.5-2.2)
--- NOTE | 2024-02-18 11:30 | PC.PHAR ---
Addendum entered by Keila Morales 02/18/24 12:30: Pt has not had meds this morning, insulin included. Original Note: [facility] 02/18/24 11:30am
[2024-02-18 11:33] LABS: Troponin(5th) Baseline 202 ng/L (0-15)
[2024-02-18 11:34] LABS: NT Pro B Type Natriuretic Pept 606 pg/mL (0-450)
[2024-02-18 11:45] LABS: Alanine Aminotransferase 17 U/L (0-41); Albumin Level 3.6 g/dL (3.5-5.2); Alkaline Phosphatase 74 U/L (40-130); Aspartate Amino Transferase 32 U/L (0-40); Blood Urea Nitrogen 16 mg/dL (8-23); C Reactive Protein 71.3 mg/L (0.0-4.9); Calcium 8.4 mg/dL (8.5-10.5); Carbon Dioxide 22 mmol/L (22-29); Chloride 99 mmol/L (98-107); Creatinine Clr Calc Pharmacy 55.9748; Globulin 1.8 g/dL (1.3-4.6); Glucose 301 mg/dL (65-115); Osmolality Calculated 292 mOsm/kg (285-295); Sodium 135 mmol/L (136-145); Total Bilirubin 1.3 mg/dL (0.15-1.2); Total Protein 5.4 g/dL (6.6-8.7)
--- NOTE | 2024-02-18 12:50 | ECG_ITS ---
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 Measurements Intervals [place] Rate: 77 P: 74 LA: 193 QRS: -76 QRSD: 124 T: 32 QT: 412 QTc: 468 Interpretive Statements SINUS RHYTHM LEFT ANTERIOR FASCICULAR BLOCK [QRS AXIS <= -45, QR IN I, RS IN II] Compared to ECG 02/18/2024 10:58:15 Left anterior fascicular block now present Ventricular premature complex(es) no longer present Myocardial infarct finding no longer present Electronically Signed On 02-19-2024 9:05:40 CDT by Hansa Humphrey M.D. [id number]
[2024-02-18 12:51] LABS: Reflex Lactate Order REFLEX LACTIC ORDERD
[2024-02-18] MEDS: sodium chloride 0.9% 1,000 ML 999 ML IV (12:57)
[2024-02-18 13:12] LABS: Troponin 5 2HR 271.6 ng/L (0-15); Troponin 5 2HR Delta 69.6 ABS# (0-10)
--- NOTE | 2024-02-18 13:25 | CT_ITS ---
WS: [id number] CTA OF THE CHEST WITH PULMONARY EMBOLISM PROTOCOL TECHNIQUE: High-resolution contrast enhanced CTA of the chest with coronal and sagittal reformatted i mages with pulmonary embolism protocol. MIP images are also reviewed. CLINICAL INFORMATION: hypoxemia, fever, COMPARISON: CTA chest 117 DLP: 554.[address] scans at [facility] use at least one of these dose optimization techniques: automated e xposure control; mA and/or kV adjustment per patient size (includes targeted exams where dose is matc hed to clinical indication); or iterative reconstruction. FINDINGS: Proximal main pulmonary arteries are normal. Normal segmental and subsegmental pulmonary arteries. No evidence of pulmonary embolus. Chronic rib fractures with callus formation. Prior CABG with sternotomy. Chronic emphysematous changes. Slight bibasal atelectasis. Aortic calcifi cation. Normal caliber thoracic aorta. Coronary calcification. No mediastinal or hilar lymphadenopath y. Small esophageal hiatal hernia. Thoracic kyphosis. 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 CT/CT angio chest PE protcl [id number] IMPRESSION: 1. No evidence of pulmonary embolus. 2. No acute pulmonary infiltrates.
[2024-02-18] MEDS: iohexol 350 mg/mL 500 mL Btl (per mL) IV (13:51)
[2024-02-18 14:17] LABS: Bilirubin Urine Negative (Negative); Blood Urine 1+ (Negative); Glucose Urine UA 3+ (Normal); Ketones Urine Negative (Negative); Leukocyte Esterase Urine Negative (Negative); Nitrate Urine Negative (Negative); Protein Urine 1+ (Negative); Specific Gravity, Urine 1.013 (1.005-1.030); Urine Appearance Clear (CLEAR); Urine Color Yellow (Yellow); pH Urine 5.5 (5-7)
[2024-02-18 14:19] LABS: Bacteria Urine None Seen /hpf; Hyaline Casts Urine 5.77 /lpf; RBC Urine 0-2 /hpf (0-2); Squamous Epithelial Cell Urine 0-5 /hpf (0-5); WBC Urine 0-5 /hpf (0-5)
[2024-02-18 14:59] LABS: Adenovirus Not Detected (NOT DETECT); Chlamydia Pneumoniae Not Detected (NOT DETECT); Coronavirus 229E,HKU1,NL63,OC4 Not Detected (NOT DETECT); Human Metapneumovirus Not Detected (NOT DETECT); Human Rhinovirus/Enterovirus Not Detected (NOT DETECT); Influenza A Not Detected (NOT DETECT); Influenza A H1 Not Detected (NOT DETECT); Influenza A H1-2009 Not Detected (NOT DETECT); Influenza A H3 Not Detected (NOT DETECT); Influenza B Not Detected (NOT DETECT); Mycoplasma Pneumoniae Not Detected (NOT DETECT); Parainfluenza Virus Type 1 Not Detected (NOT DETECT); Parainfluenza Virus Type 2 Not Detected (NOT DETECT); Parainfluenza Virus Type 3 Not Detected (NOT DETECT); Parainfluenza Virus Type 4 Not Detected (NOT DETECT); Respiratory Syncytial Virus A Not Detected (NOT DETECT); Respiratory Syncytial Virus B Not Detected (NOT DETECT); SARS-COV-2 Not Detected (NOT DETECT)
[2024-02-18 15:09] LABS: Lactic Acid level (Lactate) 1.9 mmol/L (0.5-2.2)
[2024-02-18] MEDS: aspirin 81 mg Chew Tablet 324 MG PO (15:17)
[2024-02-18] MEDS: enoxaparin 100 mg/mL Syringe SUBCUT (15:18)
[2024-02-18] MEDS: levofloxacin-dextrose 5 % 750 MG/150 ML PREMIX 100 MG IV (15:21)
--- NOTE | 2024-02-18 15:23 | P.HP_ITS ---
Providers/Chief Complaint 2 Chief Complaint: Fever History of Present Illness Ambrose Villa is a 78 year old male With past medical history of orthostatic hypotension, sleep apnea, congestive heart failure, CAD, CABG, uncontrolled diabetes mellitus, CKD presented to the hospital today for complaint of shortness of breath cough fever malaise for the last few days. He has been having progressive worsening shortness of breath and today he could not get up. At home he usually is on 3 to 4 L of oxygen at all times via nasal cannula however today he was desaturating even on his 4 L. Temperature recorded at home was 102. He says he ate out with with a friend recently at a restaurant and since then they both have been sick. Denies chest pain, abdominal pain, diarrhea, nausea, vomiting. He does report of hematuria few weeks ago but no longer having it. He has seen urology in the past. He has also had kidney stones in the past. He has had a TURP procedure in the past for urethral stricture. Patient has had multiple episodes of emergent intervention required because of stricture. He has had a history of poor compliance with follow-up. There had to be resection for smoothing out a false passage in posterior floor in the past. Patient has had poor compliance with self-catheterization for stricture patency maintenance. Arrival to ED 135/70, saturating 88% on 4 L initially. For worsening hypoxia he had to be placed on 8 L however subsequently improved and is now back down to 4 at rest saturating 91%. Temp 99.7. Viral infectious panel negative, COVID- negative, flu negative. Platelets 80, creatinine 1.3, ABG 7.54/28/. EKG without any acute ischemic changes. Delta troponin at 2 hours 69.7. Patient was given IV Levaquin, IV Solu-Medrol, therapeutic Lovenox and full-strength aspirin. Cardiology was consulted in the ER. CTA chest shows no evidence of PE no infiltrates. Medications/Allergies Home Medications Medication Instructions Recorded Confirmed Last Taken Type insulin glargine 100 unit/mL 50 unit SUBCUT DAILY@0600 07/19/19 02/18/24 02/17/24 History subcutaneous solution (Lantus U-100 Insulin) clopidogrel 75 mg tablet (Plavix) 75 mg PO DAILY 08/02/21 02/18/24 02/17/24 History oxygen-air delivery systems 08/02/21 02/18/24 Unknown History omega 6-qke-ugn-fish oil 300 1 cap PO BID 03/05/22 02/18/24 02/17/24 History mg-1,000 mg capsule (Fish Oil) diclofenac sodium 1 % topical gel 2 g topical QID 09/12/23 02/18/24 Unknown History methocarbamol 500 mg tablet 500 mg PO TID muscle spasm 09/12/23 02/18/24 Unknown History hinged knee brace, bilateral #1 ea 10/01/23 02/18/24 Unknown Rx aspirin 81 mg chewable tablet 81 mg PO DAILY 02/18/24 02/18/24 02/17/24 History atorvastatin 80 mg tablet 40 mg PO QPM 02/18/24 02/18/24 02/17/24 History empagliflozin 25 mg tablet 25 mg PO DAILY 02/18/24 02/18/24 02/17/24 History (Jardiance) folic acid 1 mg tablet 1 mg PO DAILY 02/18/24 02/18/24 02/17/24 History furosemide 40 mg tablet (Lasix) 40 mg PO QAM 02/18/24 02/18/24 02/17/24 History glipizide 10 mg tablet 10 mg PO BID 02/18/24 02/18/24 02/17/24 History lisinopril 10 mg tablet 5 mg PO DAILY 02/18/24 02/18/24 02/17/24 History Allergies Allergy/AdvReac Type Severity Reaction Status Date / Time Penicillins Allergy ALGY-Difficulty Verified 10/22/23 11:35 Breathing PFSH Acute 2 PFSH: Medical History COPD with hypoxia Chronic kidney disease Renal calculi Moderate aortic stenosis by prior echocardiogram Coronary artery disease CABG x 4 in 2011, history of sternal nonunion. 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 Complicating treatment of stones Uric acid urolithiasis Hx of chest wall injury COPD (chronic obstructive pulmonary disease) Chronically on 3 L of oxygen Congestive heart failure Moderate aortic stenosis last echocardiogram Diabetes type 2, uncontrolled Sleep apnea On CPAP On home O2 History of kidney stones High cholesterol Neuropathy Surgical History Status post placement of ureteral stent History of quadruple bypass Hx of lithotripsy Family History Mother , at age 76 COPD (chronic obstructive pulmonary disease) Father , at age 68-aortic aneurysm No problems noted. Social History Smoking and tobacco/nicotine status: former use of tobacco/nicotine Alcohol intake: former Substance/Drug Use: never Marital status: Current occupational status: retired Current gender identity: Male Vitals/I&O/Wt Last Vital Signs Temp 99.7 F H 02/18/24 10:48 Pulse 73 02/18/24 13:00 Resp 18 02/18/24 11:05 BP 135/70 02/18/24 13:00 Pulse Ox 91 02/18/24 13:00 O2 Del Method Nasal Cannula 02/18/24 11:07 O2 Flow Rate 4 02/18/24 13:00 Weight last 48 hrs Weight 102.058 kg Physical Exam 2 Narrative: General: Alert oriented x3, patient seen sitting up in bed saturating 91% on 4 L which is his baseline. HEENT: Normocephalic, atraumatic, EOMI, breathing comfortably. Cardio: Regular rate rhythm, normal S1-S2, Respiratory: Clear to auscultation bilaterally no wheezes no rhonchi. GI: Abdomen soft, nontender, nondistended, bowel sounds + Behavior: Appropriate and cooperative Extremities: No edema bilateral lower extremities. Data 02/19/24 02:54 02/19/24 02:54 Micro: Microbiology 02/18/24 10:55 Blood Culture - Preliminary Blood SPECIMEN COLLECTED 02/18/24 10:59 Blood Culture - Preliminary Blood SPECIMEN COLLECTED A&P Assessment and plan (1) Hematuria: Plan #Shortness of breath, fever, cough # Possible COPD exacerbation #NSTEMI #CAD status post CABG #Diabetes mellitus #CKD #Thrombocytopenia #History of urethral strictures, noncompliance with self-catheterization, history of kidney stones in the past?used to follow with urology. ? Patient presents with fever malaise myalgia cough shortness of breath which is most likely a COPD exacerbation from a possible viral etiology. Respiratory viral panel is negative at this time. Also ruled in for NSTEMI with delta troponin at 2 hours of 69.7. This may very well be a demand ischemia versus truly cardiac in etiology.. Cardiology was consulted in the ER. Patient was given 325 aspirin, therapeutic Lovenox, Levaquin and Solu-Medrol ? Continue Solu-Medrol 40 every 12 ? Continue aspirin, Plavix, atorvastatin ? Hold glipizide, Jardiance ? Continue Lantus and sliding scale insulin ? Continue to wean down oxygen to baseline as able ? May use BiPAP as needed ? Await 6-hour troponin, serial EKG. Patient denies any chest pain at this time ? Check hemoglobin A1c ? Tylenol 650 for fever ? Check urinalysis and proceed to urine culture if UA suggestive of any abnormalities ? Check blood cultures ? Patient previously saw cardiology in October. Last echo 2022 which showed an EF of 70% which had increased from 48. Does have evidence of diastolic dysfunction ? Will check echo to rule out wall motion abnormalities ? Patient allergic to penicillin. Will continue on doxycycline 100 twice daily ? Check sputum culture Gram stain ? Procalcitonin elevated at 1.18. Will trend. ? CTA chest ruled out PE or evidence of pneumonia at this time. ? Unsure of etiology of thrombocytopenia. Total bilirubin 1.3. Alkaline phosphatase 74. Will check abdominal ultrasound. Liver enzymes not elevated. Will check INR. Will repeat CBC ? Patient did receive 1 dose of therapeutic Lovenox. Will continue on therapeutic Lovenox every 12 hours. ? Cardiology consulted. Will await recommendations. Most likely plan for stress test in AM. ? Did complain of hematuria few weeks ago with clots. No longer having that at this time. Patient will need further workup and patient will need follow-up with urology as an outpatient after discharge. I have discussed this with him and he is agreeable. Full code DVT prophylaxis: Covered with therapeutic Lovenox. Attestations 2 Medical Necessity Statement*: Greater than 2 midnight stay for management of COPD exacerbation, NSTEMI Diagnoses Hematuria R31.9
[2024-02-18 15:59] LABS: Estmated Average Glucose 134; Hemoglobin A1C 6.3 % (4.0-6.0)
[2024-02-18 16:11] LABS: NT Pro B Type Natriuretic Pept 625 pg/mL (0-450); Procalcitonin 1.18 ng/mL (0-0.5)
[2024-02-18] MEDS: methylPREDNISolone sod succ 40 mg/mL INJ IVP (16:39)
--- NOTE | 2024-02-18 16:45 | CTR_ITS ---
PROCEDURE INFORMATION: Exam: CT Abdomen And Pelvis Without Contrast Exam date and time: 02/18/2024 7:41 PM Age: 78 years old Clinical indication: Other: Hematuria a few days ago; Additional info: Kidney stone HX and hematuria clots few days ago TECHNIQUE: Imaging protocol: Computed tomography of the abdomen and pelvis without contrast. Radiation optimization: All CT scans at this facility use at least one of these dose optimization techniques: automated exposure control; mA and/or kV adjustment per patient size (includes targeted exams where dose is matched to clinical indication); or iterative reconstruction. COMPARISON: CT angio abdomen pelvis 17000 09/12/2023 4:02 PM RADIATION DOSE METRICS: Total DLP (mGy-cm): 1094 FINDINGS: Limitations: Examination is limited for the evaluation of solid organs and vascular structures due to the lack of intravenous contrast. Lungs: Lung bases are unremarkable. Liver: The liver is unremarkable. Gallbladder and biliary ducts: Multiple gallstones are present. No pericholecystic inflammatory changes to suggest cholecystitis. Pancreas: The pancreas is atrophic. Spleen: The spleen is unremarkable. Adrenal glands: Adrenal glands are unremarkable. Kidneys and ureters: Atrophic kidneys bilaterally. There is contrast within the collecting system indicating prior contrast administration. Bilateral simple renal cysts are present, as well as other subcentimeter hypodensities which are too small to characterize. Stomach and bowel: Stomach is distended. Small and large bowel are normal in caliber without evidence of obstruction. . Diverticulosis without evidence of diverticulitis. Appendix: Normal appendix. Intraperitoneal space: No free intraperitoneal air. No fluid collection. Vasculature: There is no aortic aneurysm. There is atherosclerotic disease. Lymph nodes: No pathologically enlarged lymph nodes (by short axis size criteria). Urinary bladder: See Reproductive finding. Reproductive: Visualized portions of the male reproductive tract are unremarkable, though routine CT is limited in this regard. The prostate is enlarged and indents the base of the bladder. There is indentation of the bladder base, this is likely due to the enlarged prostate however, underlying bladder lesions cannot be excluded, recommend clinical correlation and direct visualization as indicated. Bones/joints: Healed right posterior lower rib fracture. No acute osseous abnormality. There is degenerative disease of the spine. Soft tissues: There is a small fat containing umbilical hernia. CT/CT abdomen pelvis wo con [id number] IMPRESSION: 1. No evidence of obstructing kidney stones as there was prior contrast administration and opacification of the ureters. 2. Enlarged prostate with indentation of the base of the bladder, this indentation is irregular and underlying bladder lesions cannot be excluded, recommend direct visualization. 3. Cholelithiasis. COMMENTS: Consistent with the [employer]'s Incidental Findings Committee white paper (J Am Trent Radiol 2018): Any incidental renal lesion less than 1 cm or classified as too small to characterize, or any incidental cystic renal lesion characterized as simple-appearing, is likely benign. No follow-up imaging is recommended for these lesions per consensus recommendations based on imaging criteria.
--- NOTE | 2024-02-18 16:50 | ECG_ITS ---
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 Measurements Intervals [place] Rate: 63 P: 52 OK: 197 QRS: -69 QRSD: 129 T: -20 QT: 431 QTc: 441 Interpretive Statements SINUS RHYTHM LEFT ANTERIOR FASCICULAR BLOCK [QRS AXIS <= -45, QR IN I, RS IN II] POSSIBLE ANTERIOR MYOCARDIAL INFARCTION , OF INDETERMINATE AGE [30 ms Q WAVE IN V3/V4, OR R < 0.2 mV IN V4] Compared to ECG 02/18/2024 13:00:06 Myocardial infarct finding now present Electronically Signed On 02-19-2024 9:07:58 CDT by Hansa Humphrey M.D. [email or web address]
[2024-02-18 17:08] LABS: Troponin 5 6HR 256.1 ng/L (0-15); Troponin 5 6HR Delta 54.1 ng/L (0-12)
[2024-02-18 17:23] LABS: Glucose Point of Care 333 mg/dL (70-110)
[2024-02-18 19:19] LABS: Charge for UA Resulting for Rev
[2024-02-18 19:27] LABS: Bilirubin Urine Negative (Negative); Blood Urine 3+ (Negative); Glucose Urine UA 3+ (Normal); Ketones Urine Negative (Negative); Leukocyte Esterase Urine Negative (Negative); Nitrate Urine Negative (Negative); Protein Urine 1+ (Negative); Urine Appearance Cloudy (CLEAR); Urine Color Yellow (Yellow); pH Urine 5.5 (5-7)
[2024-02-18 19:41] LABS: Bacteria Urine None Seen /hpf; Squamous Epithelial Cell Urine 0-5 /hpf (0-5); WBC Urine 0-5 /hpf (0-5)
--- NOTE | 2024-02-18 19:48 | PM.CONSULT ---
Providers/Reason For Consult Consulting Physician/Specialty*: JUAN Humphrey MD/cardiology Reason for Consult*: Patient with increasing shortness of breath and elevated troponin T Requesting Physician: Dr. Jones Attending Physician: Chelo Greenberg MD History of Present Illness History of Present Illness Ambrose Villa is a 78 year old male with a history of atherosclerotic heart diseas, coronary bypass surgery, presenting with increasing shortness of breath. He was found to have elevated troponin T. Cardiology consult is requested for further cardiac evaluation recommendations. This patient apparently was in his baseline state of health up until yesterday evening when he was lying in the couch, was finding it difficult to get up. He was shaking very badly and was found to be weak. Apparently he could not sleep last night. This morning, his symptoms persisted. For that reason, he called the ambulance and was brought to the hospital. Apparently the patient never had any chest pain. In the hospital, he was found to be hypoxic, requiring high flow of oxygen by nasal cannula. Usually he uses 3 L of oxygen by nasal cannula. He was on 4 L and is still found to be hypoxic. He did not have any chest pain or palpitations. No dizziness or syncopal episodes. He had a fever of 102 at home?. Also was having hematuria, possibly from kidney stones. This patient is known to have atherosclerotic heart diseas and had 2 open heart surgeries. Initially had a four-vessel bypass surgery. Cardiac colorization in May 2021 revealed occluded left and descending artery and right coronary artery. Mild disease in the circumflex artery. The BOSWELL to the LAD was found to be atretic. The Significant venous graft to the diagonal/intermedius artery was found to be patent with occluded limb to the intermedius artery. The venous graft to the PDA also was found to be patent with a mild to moderate disease proximally. He had a high-grade lesion in the left-sided descending artery after the diagonal branch. PCI was attempted at the beginning but was unsuccessful. Patient was subsequently transferred to the emergency hospital [place]. He underwent a redo bypass surgery at that time. He had a venous graft to the distal LAD and an interposition graft to the PDA. Since the coronary intervention, patient has generally been doing okay. He has a baseline shortness of breath with activities. He is known to have sleep apnea/COPD no chest pain or palpitations. No dizziness or syncopal episode. He is known to have hypertension, diabetes, dyslipidemia, obstructive sleep apnea, nOrthostatic hypotension, chronic kidney disease, etc. Currently the patient denies any fever or chills. No cough. He seems to be back to his baseline Review of Systems Narrative: CONSTITUTIONAL: No fever or chills. EYES: No blurring of vision or other visual disturbances lately. ENT: No hoarseness of voice, auditory disturbances or sore throat. CARDIOVASCULAR: As mentioned above. RESPIRATORY: Baseline shortness of breath with activities with a slight worsening. GASTROINTESTINAL: No hematemesis or melena. GENITOURINARY: Hematuria INTEGUMENTARY: No skin rashes or history of skin cancer. NEURO: No transient ischemic attacks or amaurosis. PSYCHIATRIC: No history of psychosis or major depression. HEMATOLOGIC: No bleeding disorders or significant anemia. ENDOCRINE: No history of polyuria or polydipsia. MUSCULOSKELETAL: No recent joint pain or swelling. ALLERGY/IMMUNOLOGY: As mentioned above. Medications/Allergies Home Medications Medication Instructions Recorded Confirmed Last Taken Type insulin glargine 100 unit/mL 50 unit SUBCUT DAILY@0600 07/19/19 02/18/24 02/17/24 History subcutaneous solution (Lantus U-100 Insulin) clopidogrel 75 mg tablet (Plavix) 75 mg PO DAILY 08/02/21 02/18/24 02/17/24 History oxygen-air delivery systems 08/02/21 02/18/24 Unknown History omega 3-klh-sok-fish oil 300 1 cap PO BID 03/05/22 02/18/24 02/17/24 History mg-1,000 mg capsule (Fish Oil) diclofenac sodium 1 % topical gel 2 g topical QID 09/12/23 02/18/24 Unknown History methocarbamol 500 mg tablet 500 mg PO TID muscle spasm 09/12/23 02/18/24 Unknown History hinged knee brace, bilateral #1 ea 10/01/23 02/18/24 Unknown Rx aspirin 81 mg chewable tablet 81 mg PO DAILY 02/18/24 02/18/24 02/17/24 History atorvastatin 80 mg tablet 40 mg PO QPM 02/18/24 02/18/24 02/17/24 History empagliflozin 25 mg tablet 25 mg PO DAILY 02/18/24 02/18/24 02/17/24 History (Jardiance) folic acid 1 mg tablet 1 mg PO DAILY 02/18/24 02/18/24 02/17/24 History furosemide 40 mg tablet (Lasix) 40 mg PO QAM 02/18/24 02/18/24 02/17/24 History glipizide 10 mg tablet 10 mg PO BID 02/18/24 02/18/24 02/17/24 History lisinopril 10 mg tablet 5 mg PO DAILY 02/18/24 02/18/24 02/17/24 History Allergies Allergy/AdvReac Type Severity Reaction Status Date / Time Penicillins Allergy ALGY-Difficulty Verified 10/22/23 11:35 Breathing Current Medications Generic Name Dose Route Start Last Admin Trade Name Freq PRN Reason Stop Dose Admin Methylprednisolone Sodium Succinate 40 mg 02/18/24 15:30 02/18/24 16:39 Methylprednisolone Sod Succ 40 Mg/Ml Inj IVP 40 mg Q12H VIRGIL Administration PFSH Acute PFSH: Medical History COPD with hypoxia Chronic kidney disease Renal calculi Moderate aortic stenosis by prior echocardiogram Coronary artery disease CABG x 4 in 2011, history of sternal nonunion. 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 Complicating treatment of stones Uric acid urolithiasis Hx of chest wall injury COPD (chronic obstructive pulmonary disease) Chronically on 3 L of oxygen Congestive heart failure Moderate aortic stenosis last echocardiogram Diabetes type 2, uncontrolled Sleep apnea On CPAP On home O2 History of kidney stones High cholesterol Neuropathy Surgical History Status post placement of ureteral stent History of quadruple bypass Hx of lithotripsy Family History Mother , at age 76 COPD (chronic obstructive pulmonary disease) Father , at age 68-aortic aneurysm No problems noted. Social History Smoking and tobacco/nicotine status: former use of tobacco/nicotine Alcohol intake: former Substance/Drug Use: never Marital status: Current occupational status: retired Current gender identity: Male Vitals/I&O/Wt Last Vital Signs Temp 98.2 F 02/18/24 18:07 Pulse 75 08/28/24 18:07 Resp 18 02/18/24 18:07 BP 116/78 02/18/24 18:07 Pulse Ox 96 02/18/24 18:07 O2 Del Method Nasal Cannula 02/18/24 18:07 O2 Flow Rate 4 02/18/24 13:00 02/18/24 02/18/24 02/18/24 06:59 14:59 22:59 Intake Total 1150 / 1150 Balance 1150 / 1150 Weight last 48 hrs Weight 242 lb Weight 225 lb Physical Exam Narrative: GENERAL: The patient is alert and oriented times three. Not in any acute distress. Obese HEENT: No significant pallor, icterus or lymphadenopathy.Oral cavity: There are no mucous membrane lesions. NECK: Trachea appears to be central. No masses noted. No JVD or thyromegaly appreciated. RESPIRATORY: Chest is symmetrical. No intercostals muscle retraction or any accessory muscle activation. There is no chest wall tenderness. Breath sounds are heard bilaterally. No rales or rhonchi heard. No evidence of any consolidation. BREASTS: Deferred. HEART: The heart sounds are normal. No S3 or S4. Short systolic murmur at the lower sternal border. No diastolic murmurs. No pericardial rub ABDOMEN: No vessel pulsations or distention. No tenderness. No organomegaly appreciated. Bowel sounds are normally heard. : Deferred. RECTAL: Deferred. LYMPHATIC: No lymphadenopathy noted in the neck. EXTREMITIES: No edema or cyanosis. No clubbing. Peripheral pulses are palpable but weak bilaterally MUSCULOSKELETAL: No acute joint deformities or swelling SKIN: There are no significant rashes or ecchymosis NEUROPSYCHIATRIC: The patient is alert and oriented x3. Appears to be in a good mood. No tremors or rigidity noted. Data 02/18/24 10:55 02/18/24 10:55 Other Labs: Laboratory Last Values WBC 5.40 10^3/uL (3.29-11.43) 02/18/24 10:55 RBC 4.76 10^6/uL (3.85-5.65) 02/18/24 10:55 Hgb 15.20 g/dL (11.27-16.99) 02/18/24 10:55 Hct 44.3 % (37-53) 02/18/24 10:55 MCV 93.1 fl (82-101) 02/18/24 10:55 MCH 31.9 pg (27-33) 02/18/24 10:55 MCHC 34.3 g/dL (30-55) 02/18/24 10:55 RDW 13.6 % (12.1-15.1) 02/18/24 10:55 Plt Count 80 10^3/cmm (157-399) L 02/18/24 10:55 MPV 11.2 fL (7.4-10.4) H 02/18/24 10:55 Neut % (Auto) 85.9 % 02/18/24 10:55 Lymph % (Auto) 7.0 % 02/18/24 10:55 [place] % (Auto) 5.7 % 02/18/24 10:55 Eos % (Auto) 0.4 % 02/18/24 10:55 Baso % (Auto) 0.6 % 02/18/24 10:55 Neut # (Auto) 4.64 10^3/uL (1.8-7.7) 02/18/24 10:55 Lymph # (Auto) 0.4 10^3/uL (0.8-4.8) L 02/18/24 10:55 [place] # (Auto) 0.3 10^3/uL (0.2-0.9) 02/18/24 10:55 Eos # (Auto) 0.0 10^3/uL (0.0-0.8) 02/18/24 10:55 Baso # (Auto) 0.0 10^3/uL (0.0-0.1) 02/18/24 10:55 Nucleated RBC % (auto) 0 % 02/18/24 10:55 Nucleated RBCs # 0.0 /100WBC 02/18/24 10:55 Specimen Type Arterial 02/18/24 11:08 Sample Site Brachial, left 02/18/24 11:08 ABG pH 7.54 (7.35-7.45) H 02/18/24 11:08 ABG pCO2 27.5 mmHg (35-45) L 02/18/24 11:08 ABG pO2 45.1 mmHg (80.0-100.0) L 02/18/24 11:08 ABG PO2/FiO2 Ratio 125 02/18/24 11:08 ABG HCO3 23.4 mmol/L (22-26) 02/18/24 11:08 ABG O2 Saturation 89.0 02/18/24 11:08 ABG Base Excess 2.2 mmol/L (-2.0-2.0) H 02/18/24 11:08 Mario Test N/a 02/18/24 11:08 A-a O2 Gradient 23.0 mmHg (5-10) H 02/18/24 11:08 Hematocrit 47.5 % (42-52) 02/18/24 11:08 Hgb O2 Saturation 86.7 % (95-100) L 02/18/24 11:08 Carboxyhemoglobin 1.6 %THgb (0.4-20.1) 02/18/24 11:08 Methemoglobin 0.9 % (0.4-1.5) 02/18/24 11:08 Total Hemoglobin 15.5 g/dL (14-18) 02/18/24 11:08 Sodium 135.0 mmol/L (131-143) 02/18/24 11:08 Potassium 3.9 mmol/L (3.5-5.0) 02/18/24 11:08 Glucose 293.0 mg/dL (70-115) H 02/18/24 11:08 Ionized Calcium 1.1 mmol/L (1.1-1.4) 02/18/24 11:08 O2 Delivery Device Nc 02/18/24 11:08 O2 Liters/Min 4.0 % 02/18/24 11:08 FiO2 36.0 % 02/18/24 11:08 Art Instructor ID Amh 02/18/24 11:08 Sodium 135 mmol/L (136-145) L 02/18/24 10:55 Potassium 4.0 mmol/L (3.5-5.1) 02/18/24 10:55 Chloride 99 mmol/L (98-107) 02/18/24 10:55 Carbon Dioxide 22 mmol/L (22-29) 02/18/24 10:55 Anion Gap 18.0 (5-19) 02/18/24 10:55 BUN 16 mg/dL (8-23) 02/18/24 10:55 Creatinine 1.3 mg/dL (0.7-1.2) H 02/18/24 10:55 GFR Calculation Not Reportable 02/18/24 10:55 Glucose 301 mg/dL (65-115) H 02/18/24 10:55 POC Glucose 333 mg/dL (70-110) H 02/18/24 17:19 Estimat Average Glucose 134 02/18/24 10:55 Hemoglobin A1c 6.3 % (4.0-6.0) H 02/18/24 10:55 Calculated Osmolality 292 mOsm/kg (285-295) 02/18/24 10:55 Lactic Acid 2.2 mmol/L (0.5-2.2) 02/18/24 10:55 Lactic Acid (Sepsis) 1.9 mmol/L (0.5-2.2) 02/18/24 14:26 Calcium 8.4 mg/dL (8.5-10.5) L 02/18/24 10:55 Total Bilirubin 1.3 mg/dL (0.15-1.2) H 02/18/24 10:55 AST 32 U/L (0-40) 02/18/24 10:55 ALT 17 U/L (0-41) 02/18/24 10:55 Alkaline Phosphatase 74 U/L (40-130) 02/18/24 10:55 Troponin T Baseline 202 ng/L (0-15) H* 02/18/24 10:55 Troponin T 120 Minute 271.6 ng/L (0-15) H 02/18/24 12:49 Delta Troponin T 69.6 ABS# (0-10) H* 02/18/24 12:49 Troponin T Hi Sens 6Hr 256.1 ng/L (0-15) H 02/18/24 16:43 Troponin T Hi Sens 6Hr Delta 54.1 ng/L (0-12) H* 02/18/24 16:43 C-Reactive Protein 71.3 mg/L (0.0-4.9) H 02/18/24 10:55 NT-Pro-B Natriuret Pep 606 pg/mL (0-450) H 02/18/24 10:55 NT-Pro-B Natriuret Pep 625 pg/mL (0-450) H 02/18/24 10:55 Total Protein 5.4 g/dL (6.6-8.7) L 02/18/24 10:55 Albumin 3.6 g/dL (3.5-5.2) 02/18/24 10:55 Globulin 1.8 g/dL (1.3-4.6) 02/18/24 10:55 Procalcitonin 1.10 ng/mL (0-0.5) H 02/18/24 10:55 Procalcitonin 1.18 ng/mL (0-0.5) H 02/18/24 10:55 Urine Color Yellow (Yellow) 02/18/24 18:30 Urine Appearance Cloudy (CLEAR) A 02/18/24 18:30 Urine pH 5.5 (5-7) 02/18/24 18:30 Ur Specific [place] 1.044 (1.005-1.030) H 02/18/24 18: Urine Protein 1+ (Negative) A 02/18/24 18: Urine Glucose (UA) 3+ (Normal) H 02/18/24 18:30 Urine Ketones Negative (Negative) 02/18/24 18:30 Urine Blood 3+ (Negative) A 02/18/24 18:30 Urine Nitrate Negative (Negative) 02/18/24 18:30 Urine Bilirubin Negative (Negative) 02/18/24 18:30 Urine Urobilinogen 1.0 mg/dL (Negative) 02/18/24 18:30 Ur Leukocyte Esterase Negative (Negative) 02/18/24 18:30 Urine RBC 6-10 /hpf (0-2) 02/18/24 18:30 Urine WBC 0-5 /hpf (0-5) 02/18/24 18:30 Ur Squamous Epith Cells 0-5 /hpf (0-5) 02/18/24 18:30 Amorphous Sediment Not Reportable 02/18/24 18:30 Urine Bacteria None seen /hpf (NONE) 02/18/24 18:30 Hyaline Casts 0.40 /lpf 02/18/24 18:30 Adenovirus (PCR) Not detected (NOT DETECT) 02/18/24 11:21 C. pneumoniae DNA (PCR) Not detected (NOT DETECT) 02/18/24 11:21 Coronavirus 229E (PCR) Cancelled 02/18/24 11:21 Coronavirus 229E (PCR) Not detected (NOT DETECT) 02/18/24 11:21 Human Metapneumovir PCR Not detected (NOT DETECT) 02/18/24 11:21 Influenza A (H1) PCR Not detected (NOT DETECT) 02/18/24 11:21 Influ A (H1/09) PCR Not detected (NOT DETECT) 02/18/24 11:21 Influenza A (H3) PCR Not detected (NOT DETECT) 02/18/24 11:21 Influenza Type A (PCR) Not detected (NOT DETECT) 02/18/24 11:21 Influenza Type B (PCR) Not detected (NOT DETECT) 02/18/24 11:21 M. pneumoniae (PCR) Not detected (NOT DETECT) 02/18/24 11:21 Parainfluenza 1 (PCR) Not detected (NOT DETECT) 02/18/24 11:21 Parainfluenza 2 (PCR) Not detected (NOT DETECT) 02/18/24 11:21 Parainfluenza 3 (PCR) Not detected (NOT DETECT) 02/18/24 11:21 Parainfluenza 4 (PCR) Not detected (NOT DETECT) 02/18/24 11:21 RSV Type A (PCR) Not detected (NOT DETECT) 02/18/24 11:21 RSV Type B (PCR) Not detected (NOT DETECT) 02/18/24 11:21 Entero/Rhino (PCR) Not detected (NOT DETECT) 02/18/24 11:21 SARS-CoV-2 (PCR) Cancelled 02/18/24 11:21 SARS-CoV-2 (PCR) Not detected (NOT DETECT) 02/18/24 11:21 Micro: Microbiology 02/18/24 10:55 Blood Culture - Preliminary Blood SPECIMEN COLLECTED 02/18/24 10:59 Blood Culture - Preliminary Blood SPECIMEN COLLECTED Other data: Cardiac catheterization in 2020 1. The left and descending artery was found to be totally occludedproximally.? Right coronary artery also was found to be totally occludedproximally, after the sinus alban branch.? The left circumflex artery wasfound to have mild diffuse disease.? The intermedius artery was found to havemoderate to severe diffuse disease.? This is a relatively small caliber vessel. ? 2. The saphenous venous graft to the PDA was found to be patent.? Sequential venous graft to the intermedius/diagonal vessel also was found to be patent. The anastomosis to the intermedius artery was found to be occluded.? The BOSWELL to the LAD was found to be atretic from the previous angiogram.? The mid to distal LAD was found to be retrogradely filled by the diagonal graft.? The left anterior descending artery was found to have a high-grade lesion after the origin of the diagonal branch.? Distal LAD was found to have mild diffuse disease. LV gram was not performed.? LVEDP was 9 mmHg.. ? 3. The angiogram was reviewed by Dr. Kaur.? The percutaneous intervention of the LAD lesion was found to be technically challenging.? Because of the patient's chest wall complication after the previous surgery, surgical intervention also is going to be difficult.? For further management of this patient, transferred to be appropriate to transfer him to a facility where complex interventions can be performed. A&P Assessment and plan (1) Elevated troponin: Elevated troponin T with a significant delta, may suggest a non-ST elevation myocardial infarction. However the patient has no chest pain. Because of the diabetes, his symptoms may not be reliable. He may be treated with heparin, beta-vee, aspirin, statin and other symptomatic measures. (2) Atherosclerosis of coronary artery of [place] heart without angina pectoris: Patient had total occlusion of the left-sided descending artery and right coronary artery. BOSWELL to LAD was found to be atretic. Patent venous graft to the diagonal/intermedius artery. Patent graft to the PDA. Redo bypass surgery in 2021-venous graft to the distal LAD and interposition graft to the PDA. Progression of disease in [place] vessels/graft vessels are considerations. This may need to be further evaluated Qualifiers: Coronary Disease-Associated Artery/Lesion type: [place] artery Qualified Code(s): I25.10 - Atherosclerotic heart disease of [place] coronary artery without angina pectoris (3) Benign essential hypertension with target blood pressure below 140/90: Since the blood pressure is in the normal range, patient may not require any medication changes at this time. Advised to continue on the current measures. (4) Dyslipidemia: Patient is known to have dyslipidemia. Advised to continue on the current medications. Will have ollow-up evaluation as scheduled. Patient understands the importance of dietary compliance. (5) Chronic kidney disease: The kidney function is fairly stable at this time. May continue on the current management. Qualifiers: Chronic kidney disease stage: stage 2 (mild) Qualified Code(s): N18.2 - Chronic kidney disease, stage 2 (mild) (6) COPD (chronic obstructive pulmonary disease): The kidney function appears to be stable. Qualifiers: COPD type: unspecified COPD Qualified Code(s): J44.9 - Chronic obstructive pulmonary disease, unspecified (7) COPD with acute exacerbation: Possibility of pneumonia causing the worsening shortness of breath is a consideration. Evaluation and management as per the primary. Plan Echocardiogram would be helpful to evaluate LV function and rule out renal pathology. Serial cardiac enzymes and EKGs. Consider doing a Myocardial perfusion imaging to further evaluate the coronary status. Based on the results of the above tests and the patient's clinical progress, further recommendations will be made. Thank you for the opportunity to evaluate this patient and make these recommendations Consult Attestations Medical Necessity Statement: Patient requires continued hospital stay for close monitoring and further management Coding Level of Care Code 52992 Diagnoses Elevated troponin R77.8 Atherosclerosis of [place] coronary artery of [place] heart without angina pectoris I25.10 Coronary Disease-Associated Artery/Lesion type: [place] artery Benign essential hypertension with target blood pressure below 140/90 I10 Dyslipidemia E78.5 Stage 2 chronic kidney disease N18.2 Chronic kidney disease stage: stage 2 (mild) Chronic obstructive pulmonary disease, unspecified COPD type J44.9 COPD type: unspecified COPD COPD with acute exacerbation J44.1
[2024-02-18 20:03] LABS: Specific Gravity, Urine 1.044 (1.005-1.030)
[2024-02-18 20:04] LABS: Add Urine Culture? No
[2024-02-18 20:30] LABS: Glucose Point of Care 438 mg/dL (70-110)
[2024-02-18] MEDS: insulin lispro 100 unit/1 mL SUBCUT (21:01)
--- NOTE | 2024-02-18 21:11 | ECG_ITS ---
[facility] Test Date: 2024-02-19 Pat Name: Ambrose Villa Department: Room: 252 Gender: Male C D Still Operator: Fiona Jesu : 1945 Requested By: Hansa Humphrey Order Number: [id number] Denice MD: Hansa Humphrey M.D. Interpretive Statements NAME OF STUDY: LEXISCAN SESTAMIBI STRESS TEST INDICATION: Pt unable to exercise/CHF/COPD, PROCEDURE: At the baseline, the EKG revealed sinus bradycardia with poor R wave progression. Some nonspecific T wave changes.. The baseline heart was 55 bpm with a blood pressue of 117/64 mm of Hg Lexiscan was infused over a period of 20 seconds. A total of 0.4 milligrams of Lexiscan was infused. The stress phase was continued for a total of 5 minutes. Heart rate at the end of the stress phase was 80 bpm with a blood pressure 74/55 mm of Hg. The EKG at the peak infusion revealed no significant changes. Sestamibi was injected 20 seconds after the Lexiscan infusion. Heart rate at the end of the recovery phase was 85 bpm with a blood pressure of 87/55 mm of Hg. CONCLUSION: 1. No significant EKG changes with the LexiScan infusion 2. No LexiScan induced chest pain or cardiac arrhythmia 3. Hypotensive response to Lexiscan infusion 4. Sestamibi/sestamibi perfusion scan pending; see separate report. Electronically Signed On 02-26-2024 22:16:49 CDT by Hansa Humphrey M.D. [email or web address]
--- NOTE | 2024-02-18 21:11 | NMCV_ITS ---
NM cooper perf SPECT r/s* [id number] LeonAmbrose sousa Age: 78 Gender: M : 1945 Exam Date: 02/19/2024 06:31 Ordering Phys: Hansa Humphrey MD ([email or web address]) Technologist: ELLIE Dodge Exam Location: [facility] Indications: Unable to exercise, CHF, COPD STRESS TEST Please see separate stress test report in [facility] for full findings IMAGE PROTOCOL Rest/Stress 1 Lexiscan Day Radiopharmaceutical Dose (mCi) Administration Site Administered by Rest: Tc-99m 10.9 IV ELLIE Dodge Sestamibi Stress:Tc-99m 32.7 IV ELLIE Dodge Sestamibi Rest: 19-Feb-2024 60 Discovery 630 Stress: 19-Feb-2024 30 Discovery 630 0.4mg Lexiscan. Supine position only as patient was unable to lay prone. SPECT RESULTS Technical Quality: Good Raw Data Analysis: Normal Image Corrections: No attenuation or motion correction applied Summed Stress Score: 12 Summed Rest Score: 16 Summed Difference Score: 2 PERFUSION FINDINGS Moderate area of moderate to severely decreased aseptic involving the basal and mid inferolateral and mid inferior wall region. Minimal reversibility was noted in the mid inferolateral region. Small areas of slightly decreased tracer uptake was noted in the basal inferior, apical inferior, apical lateral, basal anterolateral and LV apex. Slight reversibility was noted in the apical lateral region. FUNCTIONAL RESULTS (calculated via Gated SPECT) Stress Image LV EF (%): 59 Stress EDV (mL):121 TID: 1.13 Stress ESV (mL):50 FUNCTIONAL FINDINGS: Segmental wall motion analysis revealing no gross wall motion abnormalities IMPRESSIONS 1. Myocardial perfusion imaging revealing areas of persistent decreased tracer uptake involving the inferior, inferolateral, anterolateral and apical regions with small areas of minimal reversibility, suggesting extensive scarring involving the distribution of the right coronary artery and left circumflex artery with a very small area of possible preinfarction ischemia in the circumflex territory. 2. Normal LV ejection fraction 59%. 3. LV wall motion analysis revealing no gross wall motion abnormalities. 4. Mildly dilated LV cavity Compared to the study from 06/04/2021, the ischemic burden appears to be much less Dr Hansa Humphrey MD FACC (Electronically Signed) Final Date: 19 February 2024 12:51 S
--- NOTE | 2024-02-18 21:11 | USCV_ITS ---
Ambrose Villa Age: 78 Gender: M : 1945 Exam Date: 02/18/2024 21:25 Ordering Phys: Hansa Humphrey MD ([email or web address]) Technologist: LORI [place] [facility] [place]ication: NSTEMI/CHF, history of COPD, history of chronic hypoxemia, O2-dependent 3-4L, s/p CABGs 2013, 2018. BP: 117 / 72 HR: 62 Rhythm: Sinus Technical Quality: Adequate with [employer] MEASUREMENTS (Male / Female) Normal Values 2D ECHO LV Diastolic Diameter PLAX 4.6 cm 4.2 - 5.9 / 3.9 - 5.3 cm IVS Diastolic Thickness 1.3 cm 0.6 - 1.0 / 0.6 - 0.9 cm IVS Systolic Thickness 1.4 cm LVPW Diastolic Thickness 1.5 cm 0.6 - 1.0 / 0.6 - 0.9 cm LVPW Systolic Thickness 1.1 cm LVOT Diameter 2.1 cm LV Ejection Fraction 2D Teich 41.0 % LV Ejection Fraction MOD 4C 51.7 % LV Ejection Fraction MOD 2C 31.5 % LV Ejection Fraction 2C AL 30.9 % LA Diameter 5.5 cm LA Sys Volume AL 56.8 cm cubed LA Sys Volume Index AL 24.3 cm cubed/m squared Aorta at Sinotubular Diameter 2.6 cm IVC Diameter 1.4 cm M-MODE LA Ao Ratio MM 1.4 AV Cusp Separation MM 2.0 cm DOPPLER AV Peak Velocity 133.0 cm/s LVOT Peak Velocity 67.0 cm/s AV Area Cont Eq vti 2.1 cm squared AV Area Cont Eq pk 1.7 cm squared MV Peak Velocity 98.0 cm/s MV Area PHT 4.0 cm squared Mitral E to A Ratio 0.9 TR Peak Velocity 249.0 cm/s TR Peak Gradient 24.8 mmHg TV Peak E Velocity 55.0 cm/s Right Atrial Pressure 3.0 mmHg Pulmonary Artery Systolic Pressu 27.8 mmHg PV Peak Velocity 83.0 cm/s FINDINGS Left Ventricle Diffuse hypokinesis of the left ventricular ejection fraction of 40%.Grade I/IV diastolic dysfunction (abnormal relaxation filling pattern), normal to mildly elevated filling pressures. Right Ventricle The right ventricle is normal in size and function. Right Atrium The right atrium is normal in size. Left Atrium Mildly increased left atrial size. Mitral Valve Mild mitral valve regurgitation. Aortic Valve Trace aortic valve regurgitation. Tricuspid Valve Mild tricuspid valve regurgitation. Estimated pulmonary artery peak systolic pressure 28 mmHg Pulmonic Valve No gross abnormalities noted Pericardium No pericardial effusion. Aorta Normal aortic annulus size. IVC The inferior vena cava appears normal. CONCLUSIONS Diffuse hypokinesis of the left ventricular ejection fraction of 40%.Grade I/IV diastolic dysfunction (abnormal relaxation filling pattern), normal to mildly elevated filling pressures. Mildly increased left atrial size. Mild mitral valve regurgitation. Trace aortic valve regurgitation. Mild tricuspid valve regurgitation. Normal PA pressure of 28 mmHg There is no pericardial effusion. There are no intracardiac masses. Compared to the study from 09/30/2022, there is a significant drop in the LV ejection fraction(from 70% to 40%) Dr Hansa Humphrey MD FAC (Electronically Signed) Final Date: 19 February 2024 08:19 S
[2024-02-18 21:22] LABS: Creatine Phosphokinase 658 U/L (39-308)
[2024-02-19] VITALS (7 sets, daily range): BP systolic 87–103; BP diastolic 55–58; PULSE 49–76; RESP 17–18; TEMP 36.4–36.6; O2SAT 92–95
[2024-02-19 00:16] LABS: Glucose Point of Care 284 mg/dL (70-110)
[2024-02-19] MEDS: enoxaparin 120 mg/0.8 mL Syringe 110 MG SUBCUT (02:39)
[2024-02-19] MEDS: methylPREDNISolone sod succ 40 mg/mL INJ IVP (02:39)
[2024-02-19 03:24] LABS: Basophils % 0.1 %; Lymphocytes # 0.8 10^3/uL (0.8-4.8); Mean Corpuscular HGB Conc 34.2 g/dL (30-55); Mean Corpuscular Volume 93.4 fl (82-101); Mean Platelet Volume 11.8 fL (7.4-10.4); Monocytes # 0.2 10^3/uL (0.2-0.9); Monocytes % 2.8 %; Neutrophils % 84.5 %; Nucleated Red Blood Cells % 0 %; Platelet Count 87 10^3/cmm (157-399); Red Blood Count 4.82 10^6/uL (3.85-5.65); Red Cell Distribution Width 13.1 % (12.1-15.1); White Blood Count 6.86 10^3/uL (3.29-11.43)
[2024-02-19 03:41] LABS: Alanine Aminotransferase 16 U/L (0-41); Albumin Level 3.4 g/dL (3.5-5.2); Alkaline Phosphatase 73 U/L (40-130); Anion Gap 16.9 (5-19); Aspartate Amino Transferase 31 U/L (0-40); Blood Urea Nitrogen 20 mg/dL (8-23); Calcium 8.8 mg/dL (8.5-10.5); Carbon Dioxide 22 mmol/L (22-29); Chloride 102 mmol/L (98-107); Creatinine Clr Calc Pharmacy 62.9241; Globulin 2.7 g/dL (1.3-4.6); Glucose 237 mg/dL (65-115); Magnesium 1.8 mg/dL (1.7-2.3); Osmolality Calculated 294 mOsm/kg (285-295); Potassium 3.9 mmol/L (3.5-5.1); Sodium 137 mmol/L (136-145); Total Protein 6.1 g/dL (6.6-8.7)
[2024-02-19 06:32] LABS: Glucose Point of Care 220 mg/dL (70-110)
[2024-02-19] MEDS: regadenoson 0.4 Mg/5 ml Syringe IVP (07:18)
[2024-02-19] MEDS: aminophylline 25 mg/mL SDV 10 mL IVP ×2 (07:28→07:32)
[2024-02-19] MEDS: perflutren protein-a microsphr 0.22 mg/mL SDV 3 mL IV (09:10)
[2024-02-19] MEDS: clopidogrel 75 mg Tablet PO (09:35)
[2024-02-19] MEDS: aspirin 81 mg EC Tablet PO (09:35)
[2024-02-19] MEDS: insulin lispro 100 unit/1 mL SUBCUT ×2 (09:36→13:15)
[2024-02-19 11:05] LABS: Glucose Point of Care 251 mg/dL (70-110)
--- NOTE | 2024-02-19 11:09 | P.PN_ITS ---
Subjective 2 Subjective: seen this morning denies chest pain/shortness of breath on 2.5L NC at this time stress test results pending Vitals/I&O/Wt Last Vital Signs Temp 97.6 F 02/19/24 04:00 Pulse 72 02/19/24 08:48 Resp 18 02/19/24 08:48 BP 87/55 02/19/24 07:37 Pulse Ox 94 02/19/24 08:48 O2 Del Method Nasal Cannula 02/19/24 08:48 O2 Flow Rate 4 02/19/24 08:48 02/18/24 02/19/24 02/19/24 22:59 06:59 14:59 Intake Total 1150 / 1150 120 / 120 Balance 1150 / 1150 120 / 120 Weight last 48 hrs Weight 107.53 kg Weight 109.769 kg Weight 102.058 kg Physical Exam 2 Narrative: General: Alert oriented x3, patient seen sitting up in bed on 2.5L NC HEENT: Normocephalic, atraumatic, EOMI, breathing comfortably. Cardio: Regular rate rhythm, normal S1-S2, Respiratory: Clear to auscultation bilaterally no wheezes no rhonchi. GI: Abdomen soft, nontender, nondistended, bowel sounds + Behavior: Appropriate and cooperative Extremities: No edema bilateral lower extremities. Data 02/19/24 02:54 02/19/24 02:54 Micro: Microbiology 02/18/24 10:59 Blood Culture - Preliminary Blood NEGATIVE TO DATE 02/18/24 10:55 Blood Culture - Preliminary Blood NEGATIVE TO DATE A&P Assessment and plan (1) Hematuria: Plan #Shortness of breath, fever, cough # Possible COPD exacerbation #NSTEMI #CAD status post CABG #Diabetes mellitus #CKD #Thrombocytopenia #History of urethral strictures, noncompliance with self-catheterization, history of kidney stones in the past?used to follow with urology. ? Patient presents with fever malaise myalgia cough shortness of breath which is most likely a COPD exacerbation from a possible viral etiology. Respiratory viral panel is negative at this time. Also ruled in for NSTEMI with delta troponin at 2 hours of 69.7. This may very well be a demand ischemia versus truly cardiac in etiology.. Cardiology was consulted in the ER. Patient was given 325 aspirin, therapeutic Lovenox, Levaquin and Solu-Medrol ? Continue Solu-Medrol 40 every 12 ? Continue aspirin, Plavix, atorvastatin ? Hold glipizide, Jardiance ? Continue Lantus and sliding scale insulin ? Continue to wean down oxygen to baseline as able ? May use BiPAP as needed ? Await 6-hour troponin, serial EKG. Patient denies any chest pain at this time ? Check hemoglobin A1c ? Tylenol 650 for fever ? Check urinalysis and proceed to urine culture if UA suggestive of any abnormalities ? Check blood cultures ? Patient previously saw cardiology in October. Last echo 2022 which showed an EF of 70% which had increased from 48. Does have evidence of diastolic dysfunction ? Will check echo to rule out wall motion abnormalities ? Patient allergic to penicillin. Will continue on doxycycline 100 twice daily ? Check sputum culture Gram stain ? Procalcitonin elevated at 1.18. Will trend. ? CTA chest ruled out PE or evidence of pneumonia at this time. ? Unsure of etiology of thrombocytopenia. Total bilirubin 1.3. Alkaline phosphatase 74. Will check abdominal ultrasound. Liver enzymes not elevated. Will check INR. Will repeat CBC ? Patient did receive 1 dose of therapeutic Lovenox. Will continue on therapeutic Lovenox every 12 hours. ? Cardiology consulted. Will await recommendations. Most likely plan for stress test in AM. ? Did complain of hematuria few weeks ago with clots. No longer having that at this time. Patient will need further workup and patient will need follow-up with urology as an outpatient after discharge. I have discussed this with him and he is agreeable. Full code DVT prophylaxis: Covered with therapeutic Lovenox. 02/19/2024 - stress test completed today - platelets stable at 87. will check peripheral smear - ct abd pelvis reviewed: no kidney stones. visual bladder evaluation recommended - referal to urology as outpatient at discharge - pt o2 at 2.5L this AM. he feels better - ortho positive - ns at 100 cc/hr for total of 750 cc - continue ssi, lantus - echo ordered, results pending. - continue doxycycline 100 bid x 5 days total Attestations 2 Medical Necessity Statement*: Greater than 2 midnight stay for management of COPD exacerbation, NSTEMI Diagnoses Hematuria R31.9
[2024-02-19] MEDS: insulin glargine 100 units/1 mL 30 UNIT SUBCUT (11:11)
--- NOTE | 2024-02-19 13:12 | P.DS_ITS ---
Discharge Providers Date of Admission: 02/18/24 15:46 Date of Discharge: February 19, 2024 Attending Provider at Admission: Chelo Greenberg MD Attending Provider at Discharge: Chelo Greenberg MD Diagnoses at Discharge Discharge Diagnosis (1) Hematuria: Status: Inactive Reason for Visit Reason for Visit: Fever Hospital Course Hospital Course Patient admitted for shortness of breath with possible COPD exacerbation and was treated for the same however also was diagnosed with an NSTEMI on admission. Cardiology was consulted. Patient had a stress test performed which was low probability for acute ischemia at this time. Echo also completed during hospitalization and reviewed by cardiology. Please see chart for results. Patient did complain of having hematuria few weeks ago with clots. He is regularly followed up with urology in the past. He has had a TURP procedure in the past as well. Patient advised to follow-up with urology after discharge for further workup. Referral given at discharge. Patient was sent home with doxycycline x 4 days and oral steroids. Lisinopril was stopped and patient was placed on metoprolol to tartrate 25 twice daily as per cardiology recommendations. He does have history of orthostatic hypotension. He did receive fluids prior to discharge. Physical Exam Narrative: General: Alert oriented x3, patient seen sitting up in bed on 2.5L NC HEENT: Normocephalic, atraumatic, EOMI, breathing comfortably. Cardio: Regular rate rhythm, normal S1-S2, Respiratory: Clear to auscultation bilaterally no wheezes no rhonchi. GI: Abdomen soft, nontender, nondistended, bowel sounds + Behavior: Appropriate and cooperative Extremities: No edema bilateral lower extremities. Discharge Data Studies Completed and Pending Completed Studies During Hospitalization Category Date Time Status CT abdomen pelvis wo con [id number] Stat Cat Scan 02/18/24 16:[address] angio chest PE protcl [id number] Stat Cat Scan 02/18/24 13:25 Completed Cardiac Stress Test MIBI [Sestamibi Stress Test Request Exams 02/18/24 21:11 Draft ] Routine XR chest 1V portable [id number] Stat Exams 02/18/24 10:49 Completed NM cooper perf SPECT r/s* [id number] Routine Nuc Med 02/18/24 21:11 Completed CV. echo wo/w contrast [id number] Routine Ultrasound 02/18/24 21:11 Completed Pending at discharge Category Date Time Status Basic Metabolic Panel AM LABS Lab 02/20/24 04:00 Ordered Blood Culture Stat Lab 02/18/24 10:59 Results Complete Blood Count w/Auto AM LABS Lab 02/20/24 04:00 Ordered Magnesium AM LABS Lab 02/20/24 04:00 Ordered Sputum Culture and Gram Stain Stat Lab 02/18/24 15:29 Uncollected Radiology Impressions Chest X-Ray 02/18/24 10:49 IMPRESSION: 1. No acute cardiopulmonary finding. 2. Chronic LEFT lower lobe changes and chronic LEFT pleural thickening as noted above. Chest CTA 02/18/24 13:25 IMPRESSION: 1. No evidence of pulmonary embolus. 2. No acute pulmonary infiltrates. Abdomen/Pelvis CT 02/18/24 16:45 IMPRESSION: 1. No evidence of obstructing kidney stones as there was prior contrast administration and opacification of the ureters. 2. Enlarged prostate with indentation of the base of the bladder, this indentation is irregular and underlying bladder lesions cannot be excluded, recommend direct visualization. 3. Cholelithiasis. COMMENTS: Consistent with the [place] [employer]'s Incidental Findings Committee white paper (J Am Trent Radiol 2018): Any incidental renal lesion less than 1 cm or classified as too small to characterize, or any incidental cystic renal lesion characterized as simple-appearing, is likely benign. No follow-up imaging is recommended for these lesions per consensus recommendations based on imaging criteria. Laboratory Results WBC 6.86 10^3/uL (3.29-11.43) 02/19/24 02:54 RBC 4.82 10^6/uL (3.85-5.65) 02/19/24 02:54 Hgb 15.40 g/dL (11.27-16.99) 02/19/24 02:54 Hct 45.0 % (37-53) 02/19/24 02:54 MCV 93.4 fl (82-101) 02/19/24 02:54 MCH 32.0 pg (27-33) 02/19/24 02:54 MCHC 34.2 g/dL (30-55) 02/19/24 02:54 RDW 13.1 % (12.1-15.1) 02/19/24 02:54 Plt Count 87 10^3/cmm (157-399) L 02/19/24 02:54 MPV 11.8 fL (7.4-10.4) H 02/19/24 02:54 Neut % (Auto) 84.5 % 02/19/24 02:54 Lymph % (Auto) 12.0 % 02/19/24 02:54 Giles % (Auto) 2.8 % 02/19/24 02:54 Eos % (Auto) 0.0 % 02/19/24 02:54 Baso % (Auto) 0.1 % 02/19/24 02:54 Neut # (Auto) 5.80 10^3/uL (1.8-7.7) 02/19/24 02:54 Lymph # (Auto) 0.8 10^3/uL (0.8-4.8) 02/19/24 02:54 Giles # (Auto) 0.2 10^3/uL (0.2-0.9) 02/19/24 02:54 Eos # (Auto) 0.0 10^3/uL (0.0-0.8) 02/19/24 02:54 Baso # (Auto) 0.0 10^3/uL (0.0-0.1) 02/19/24 02:54 Nucleated RBC % (auto) 0 % 02/19/24 02:54 Nucleated RBCs # 0.0 /100WBC 02/19/24 02:54 Specimen Type Arterial 02/18/24 11:08 Sample Site Brachial, left 02/18/24 11:08 ABG pH 7.54 (7.35-7.45) H 02/18/24 11:08 ABG pCO2 27.5 mmHg (35-45) L 02/18/24 11:08 ABG pO2 45.1 mmHg (80.0-100.0) L 02/18/24 11:08 ABG PO2/FiO2 Ratio 125 02/18/24 11:08 ABG HCO3 23.4 mmol/L (22-26) 02/18/24 11:08 ABG O2 Saturation 89.0 02/18/24 11:08 ABG Base Excess 2.2 mmol/L (-2.0-2.0) H 02/18/24 11:08 Mario Test N/a 02/18/24 11:08 A-a O2 Gradient 23.0 mmHg (5-10) H 02/18/24 11:08 Hematocrit 47.5 % (42-52) 02/18/24 11:08 Hgb O2 Saturation 86.7 % (95-100) L 02/18/24 11:08 Carboxyhemoglobin 1.6 %THgb (0.4-20.1) 02/18/24 11:08 Methemoglobin 0.9 % (0.4-1.5) 02/18/24 11:08 Total Hemoglobin 15.5 g/dL (14-18) 02/18/24 11:08 Sodium 135.0 mmol/L (131-143) 02/18/24 11:08 Potassium 3.9 mmol/L (3.5-5.0) 02/18/24 11:08 Glucose 293.0 mg/dL (70-115) H 02/18/24 11:08 Ionized Calcium 1.1 mmol/L (1.1-1.4) 02/18/24 11:08 O2 Delivery Device Nc 02/18/24 11:08 O2 Liters/Min 4.0 % 02/18/24 11:08 FiO2 36.0 % 02/18/24 11:08 Supervisor [employer] ID [id number] 02/18/24 11:08 Sodium 137 mmol/L (136-145) 02/19/24 02:54 Potassium 3.9 mmol/L (3.5-5.1) 02/19/24 02:54 Chloride 102 mmol/L (98-107) 02/19/24 02:54 Carbon Dioxide 22 mmol/L (22-29) 02/19/24 02:54 Anion Gap 16.9 (5-19) 02/19/24 02:54 BUN 20 mg/dL (8-23) 02/19/24 02:54 Creatinine 1.2 mg/dL (0.7-1.2) 02/19/24 02:54 GFR Calculation Not Reportable 02/19/24 02:54 Glucose 237 mg/dL (65-115) H 02/19/24 02:54 POC Glucose 251 mg/dL (70-110) H 02/19/24 11:01 Estimat Average Glucose 134 02/18/24 10:55 Hemoglobin A1c 6.3 % (4.0-6.0) H 02/18/24 10:55 Calculated Osmolality 294 mOsm/kg (285-295) 02/19/24 02:54 Lactic Acid 2.2 mmol/L (0.5-2.2) 02/18/24 10:55 Lactic Acid (Sepsis) 1.9 mmol/L (0.5-2.2) 02/18/24 14:26 Calcium 8.8 mg/dL (8.5-10.5) 02/19/24 02:54 Magnesium 1.8 mg/dL (1.7-2.3) 02/19/24 02:54 Total Bilirubin 1.0 mg/dL (0.15-1.2) 02/19/24 02:54 AST 31 U/L (0-40) 02/19/24 02:54 ALT 16 U/L (0-41) 02/19/24 02:54 Alkaline Phosphatase 73 U/L (40-130) 02/19/24 02:54 Creatine Kinase 658 U/L (39-308) H* 02/18/24 16:43 Troponin T Baseline 202 ng/L (0-15) H* 02/18/24 10:55 Troponin T 120 Minute 271.6 ng/L (0-15) H 02/18/24 12:49 Delta Troponin T 69.6 ABS# (0-10) H* 02/18/24 12:49 Troponin T Hi Sens 6Hr 256.1 ng/L (0-15) H 02/18/24 16:43 Troponin T Hi Sens 6Hr Delta 54.1 ng/L (0-12) H* 02/18/24 16:43 C-Reactive Protein 71.3 mg/L (0.0-4.9) H 02/18/24 10:55 NT-Pro-B Natriuret Pep 606 pg/mL (0-450) H 02/18/24 10:55 NT-Pro-B Natriuret Pep 625 pg/mL (0-450) H 02/18/24 10:55 Total Protein 6.1 g/dL (6.6-8.7) L 02/19/24 02:54 Albumin 3.4 g/dL (3.5-5.2) L 02/19/24 02:54 Globulin 2.7 g/dL (1.3-4.6) 02/19/24 02:54 Procalcitonin 1.10 ng/mL (0-0.5) H 02/18/24 10:55 Procalcitonin 1.18 ng/mL (0-0.5) H 02/18/24 10:55 Urine Color Yellow (Yellow) 02/18/24 18:30 Urine Appearance Cloudy (CLEAR) A 02/18/24 18:30 Urine pH 5.5 (5-7) 02/18/24 18:30 Ur Specific [place] 1.044 (1.005-1.030) H 02/18/24 18:30 Urine Protein 1+ (Negative) A 02/18/24 18: Urine Glucose (UA) 3+ (Normal) H 02/18/24 18:30 Urine Ketones Negative (Negative) 02/18/24 18: Urine Blood 3+ (Negative) A 02/18/24 18: Urine Nitrate Negative (Negative) 02/18/24 18: Urine Bilirubin Negative (Negative) 02/18/24 18:30 Urine Urobilinogen 1.0 mg/dL (Negative) 02/18/24 18:30 Ur Leukocyte Esterase Negative (Negative) 02/18/24 18:30 Urine RBC 6-10 /hpf (0-2) 02/18/24 18:30 Urine WBC 0-5 /hpf (0-5) 02/18/24 18:30 Ur Squamous Epith Cells 0-5 /hpf (0-5) 02/18/24 18:30 Amorphous Sediment Not Reportable 02/18/24 18:30 Urine Bacteria None seen /hpf (NONE) 02/18/24 18:30 Hyaline Casts 0.40 /lpf 02/18/24 18:30 Adenovirus (PCR) Not detected (NOT DETECT) 02/18/24 11:21 C. pneumoniae DNA (PCR) Not detected (NOT DETECT) 02/18/24 11:21 Coronavirus 229E (PCR) Cancelled 02/18/24 11:21 Coronavirus 229E (PCR) Not detected (NOT DETECT) 02/18/24 11:21 Human Metapneumovir PCR Not detected (NOT DETECT) 02/18/24 11:21 Influenza A (H1) PCR Not detected (NOT DETECT) 02/18/24 11:21 Influ A (H1/09) PCR Not detected (NOT DETECT) 02/18/24 11:21 Influenza A (H3) PCR Not detected (NOT DETECT) 02/18/24 11:21 Influenza Type A (PCR) Not detected (NOT DETECT) 02/18/24 11:21 Influenza Type B (PCR) Not detected (NOT DETECT) 02/18/24 11:21 M. pneumoniae (PCR) Not detected (NOT DETECT) 02/18/24 11:21 Parainfluenza 1 (PCR) Not detected (NOT DETECT) 02/18/24 11:21 Parainfluenza 2 (PCR) Not detected (NOT DETECT) 02/18/24 11:21 Parainfluenza 3 (PCR) Not detected (NOT DETECT) 02/18/24 11:21 Parainfluenza 4 (PCR) Not detected (NOT DETECT) 02/18/24 11:21 RSV Type A (PCR) Not detected (NOT DETECT) 02/18/24 11:21 RSV Type B (PCR) Not detected (NOT DETECT) 02/18/24 11:21 Entero/Rhino (PCR) Not detected (NOT DETECT) 02/18/24 11:21 SARS-CoV-2 (PCR) Cancelled 02/18/24 11:21 SARS-CoV-2 (PCR) Not detected (NOT DETECT) 02/18/24 11:21 Vitals Last Vital Signs Temp 97.6 F 02/19/24 12:16 Pulse 76 02/19/24 12:16 Resp 18 02/19/24 12:16 BP 103/58 02/19/24 12:16 Pulse Ox 92 02/19/24 12:16 O2 Del Method Nasal Cannula 02/19/24 08:48 O2 Flow Rate 4 02/19/24 08:48 Discharge Plan Discharge Patient Disposition: Home Condition: Stable Prescriptions: New doxycycline monohydrate 100 mg Tablet 100 mg PO BID Qty: 8 0RF prednisone 20 mg tablet 20 mg PO BID 3 Days Qty: 6 0RF metoprolol succinate 25 mg tablet extended release 24 hr 25 mg PO DAILY Qty: 30 0RF Continued clopidogrel [Plavix] 75 mg tablet 75 mg PO DAILY (DME) oxygen-air delivery systems Device See Rx Instructions .Route Rx Instructions: As directed omega 9-gnp-boh-fish oil [Fish Oil] 300-1,000 mg capsule 1 cap PO BID (DME) hinged knee brace, bilateral See Rx Instructions .Route .MEDSUPPLY Qty: 1 0RF Rx Instructions: As directed Lantus U-100 Insulin 100 unit/mL solution 50 unit SUBCUT DAILY@0600 diclofenac sodium 1 % Gel 2 g TOPICAL QID Rx Instructions: apply to single elbow, wrist or hand; for hand includes palm/fingers/back of hand methocarbamol 500 mg Tablet 500 mg PO TID furosemide [Lasix] 40 mg Tablet 40 mg PO QAM atorvastatin 80 mg Tablet 40 mg PO QPM glipizide 10 mg Tablet 10 mg PO BID aspirin 81 mg Tablet,Chewable 81 mg PO DAILY folic acid 1 mg Tablet 1 mg PO DAILY Jardiance 25 mg Tablet 25 mg PO DAILY Discontinued lisinopril 10 mg Tablet 5 mg PO DAILY Discharge Orders: Discharge Order (Routine); Ordered 02/19/24 Ordered By: Chelo Greenberg Referrals: [facility] [Referring] - 4-7 days Hansa Humphrey MD [Physician] - 1 month (We have notified your physician's clinic of the need for a follow-up appointment to be scheduled. If you have not heard from them within the next 2 business days, please call them directly. ) [facility] [Occupational Therapist] - 03/05/24 11:45 am (PHONE APPOINTMENT ) Discharge Diet: Cardiac and Diabetic Discharge Activity: Resume usual activity and Oxygen as instructed Patient Instructions: Metoprolol (By mouth), Doxycycline (By mouth), Prednisone (By mouth), Hypotension (GEN), Opioid Safety Discharge Attestations Time Spent in Discharge Care*: greater than 30 min Status at Discharge: Cognitive status at discharge: cognitively intact , Behavioral status at discharge: cooperative , Quality Metrics Clinical Quality Measures [ No reported AMI, CVA or VTE this stay] Coding Level of Care Code Acute Code for Chg Fwd Diagnoses Hematuria R31.9
[2024-02-19] MEDS: sodium chloride 0.9% 500 ML 999 ML IV (13:16)
--- NOTE | 2024-02-19 13:40 | P.PN_ITS ---
Subjective 2 Subjective: Patient has a Myocardial perfusion imaging today. He was found to have small area of ischemia in the distribution of the left circumflex artery. The patient has not had any chest pain. No unusual shortness of breath. The overall functional status seems to be stable Medications: Medication Review Details: Current Medications Acetaminophen (Acetaminophen 325 Mg Tablet) 650 mg PO Q6H PRN PRN Reason: Mild/Mod Pain Or Temp >/= 101 Albuterol/Ipratropium (Ipratropium-Albuterol 3 Ml Neb) 3 ml INHALATION Q6H PRN PRN Reason: SHORTNESS OF BREATH Aminophylline (Aminophylline 25 Mg/Ml Sdv 10 Ml) 25 mg IVP Q2M PRN PRN Reason: see dose instructions Stop: 02/20/24 06:10 Last Admin: 02/19/24 07:32 Dose: 25 mg Aspirin (Aspirin 81 Mg Ec Tablet) 81 mg PO DAILY [facility] Last Admin: 02/19/24 09:35 Dose: 81 mg Clopidogrel Bisulfate (Clopidogrel 75 Mg Tablet) 75 mg PO DAILY [facility] Last Admin: 02/19/24 09:35 Dose: 75 mg Denture Adhesive (Fixodent 39 Gm Tube) 1 applic DENTAL PRN PRN PRN Reason: denture adhesive Doxycycline Monohydrate (Doxycycline 100 Mg Tablet) 100 mg PO BID [facility]; Protocol Insulin Glargine (Insulin Glargine 100 Units/1 Ml) 30 unit SUBCUT 0800 [facility] Last Admin: 02/19/24 11:11 Dose: 30 unit Insulin Human Lispro (Insulin Lispro 100 Unit/1 Ml) 0 unit SUBCUT WM&BEDTIME [facility]; Protocol Last Admin: 02/19/24 13:15 Dose: 8 unit Methylprednisolone Sodium Succinate (Methylprednisolone Sod Succ 40 Mg/Ml Inj) 40 mg IVP Q12H [facility] Last Admin: 02/19/24 02:39 Dose: 40 mg Nitroglycerin (Nitroglycerin 0.4 Mg Sublingual Tablet) 0.4 mg SUBLINGUAL Q5M PRN PRN Reason: CHEST PAIN Stop: 02/20/24 06:10 Ondansetron HCl (Ondansetron 2 Mg/Ml Sdv 2 Ml) 4 mg IVP Q8H PRN PRN Reason: vomiting, or N/V if npo Ondansetron HCl (Ondansetron 2 Mg/Ml Sdv 2 Ml) 4 mg IVP Q2M PRN PRN Reason: NAUSEA Vitals/I&O/Wt Last Vital Signs Temp 97.6 F 02/19/24 12:16 Pulse 76 02/19/24 12:16 Resp 18 02/19/24 12:16 BP 103/58 02/19/24 12:16 Pulse Ox 92 02/19/24 12:16 O2 Del Method Nasal Cannula 02/19/24 08:48 O2 Flow Rate 4 02/19/24 08:48 02/18/24 02/19/24 02/19/24 22:59 06:59 14:59 Intake Total 1150 / 1150 120 / 120 Balance 1150 / 1150 120 / 120 Weight last 48 hrs Weight 237 lb 1 oz Weight 242 lb Weight 225 lb Physical Exam 2 Narrative: GENERAL: The patient is alert and oriented times three. Not in any acute distress. Obese HEENT: No significant pallor, icterus or lymphadenopathy.Oral cavity: There are no mucous membrane lesions. NECK: Trachea appears to be central. No masses noted. No JVD or thyromegaly appreciated. RESPIRATORY: Chest is symmetrical. No intercostals muscle retraction or any accessory muscle activation. There is no chest wall tenderness. Breath sounds are heard bilaterally. No rales or rhonchi heard. No evidence of any consolidation. BREASTS: Deferred. HEART: The heart sounds are normal. No S3 or S4. Short systolic murmur at the lower sternal border. No diastolic murmurs. No pericardial rub ABDOMEN: No vessel pulsations or distention. No tenderness. No organomegaly appreciated. Bowel sounds are normally heard. : Deferred. RECTAL: Deferred. LYMPHATIC: No lymphadenopathy noted in the neck. EXTREMITIES: No edema or cyanosis. No clubbing. Peripheral pulses are palpable but weak bilaterally MUSCULOSKELETAL: No acute joint deformities or swelling SKIN: There are no significant rashes or ecchymosis NEUROPSYCHIATRIC: The patient is alert and oriented x3. Appears to be in a good mood. No tremors or rigidity noted. Data 02/19/24 02:54 02/19/24 02:54 Micro: Microbiology 02/18/24 10:59 Blood Culture - Preliminary Blood NEGATIVE TO DATE 02/18/24 10:55 Blood Culture - Preliminary Blood NEGATIVE TO DATE Other data: Myocardial perfusion imaging from 02/10/2024 1. Myocardial perfusion imaging revealing areas of persistent decreased tracer uptake involving the inferior, inferolateral, anterolateral and apical regions with small areas of minimal reversibility, suggesting extensive scarring involving the distribution of the right coronary artery and left circumflex artery with a very small area of possible preinfarction ischemia in the circumflex territory. 2. Normal LV ejection fraction 59%. 3. LV wall motion analysis revealing no gross wall motion abnormalities. 4. Mildly dilated LV cavity Compared to the study from 06/04/2021, the ischemic burden appears to be much less A&P Assessment and plan (1) Elevated troponin: A-fib related to type II PA. The Myocardial perfusion imaging today revealed minimal ischemia in the distribution of the left circumflex artery. This was explained to the patient in detail. In order to further evaluate the coronary status, he requires a cardiac catheterization. However since the patient has no ongoing symptoms and also the area of ischemia small, it may be appropriate to continue the medical treatment. Patient is not interested in any invasive/dorsal procedures at this time. He agrees with the medical treatment. (2) Atherosclerosis of coronary artery of [place] heart without angina pectoris: Patient had total occlusion of the left-sided descending artery and right coronary artery. BOSWELL to LAD was found to be atretic. Patent venous graft to the diagonal/intermedius artery. Patent graft to the PDA. Redo bypass surgery in 2021-venous graft to the distal LAD and interposition graft to the PDA. Progression of disease in [place] vessels/graft vessels are considerations. This may need to be further evaluated Since the area of ischemia small and also since the patient is remaining stable with no chest pain or any specific cardiac symptoms, it might be appropriate to continue the medical treatment. 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 I discussed the patient about the conservative measures. It may also be appropriate to discontinue the lisinopril and start him on metoprolol 25 mg p.o. twice daily. (4) Benign essential hypertension with target blood pressure below 140/90: Since the blood pressure is in the normal range, patient may not require any medication changes at this time. Advised to continue on the current measures. (5) Dyslipidemia: Patient is known to have dyslipidemia. Advised to continue on the current medications. Will have ollow-up evaluation as scheduled. Patient understands the importance of dietary compliance. (6) Chronic kidney disease: The kidney function is fairly stable at this time. May continue on the current management. Qualifiers: Chronic kidney disease stage: stage 2 (mild) Qualified Code(s): N18.2 - Chronic kidney disease, stage 2 (mild) (7) COPD (chronic obstructive pulmonary disease): The kidney function appears to be stable. Qualifiers: COPD type: unspecified COPD Qualified Code(s): J44.9 - Chronic obstructive pulmonary disease, unspecified Plan If the patient continues to remain stable, may be discharged from a cardiac standpoint. Attestations 2 Medical Necessity Statement*: Possible discharge home today Coding Level of Care Code 14332 Diagnoses Elevated troponin R77.8 Atherosclerosis of [place] coronary artery of [place] heart without angina pectoris I25.10 Coronary Disease-Associated Artery/Lesion type: [place] artery Orthostatic hypotension I95.1 Benign essential hypertension with target blood pressure below 140/90 I10 Dyslipidemia E78.5 Stage 2 chronic kidney disease N18.2 Chronic kidney disease stage: stage 2 (mild) Chronic obstructive pulmonary disease, unspecified COPD type J44.9 COPD type: unspecified COPD
== END 2024-02-19 16:04 | disposition home or self-care (01) | DRG 190 ==
LOC: ER 14:55 → MEDSURG 15:46
PROVIDERS: Admitting Provider Internal Medicine; Emergency Provider Emergency Medicine; PCP Family Medicine; Visit Provider Internal Medicine
DX: J44.1 Chronic obstructive pulmonary disease with (acute) exacerbation (principal); I21.A1 Myocardial infarction type 2; J96.21 Acute and chronic respiratory failure with hypoxia; I13.0 Hypertensive heart and chronic kidney disease with heart failure and stage 1 through stage 4 chronic kidney disease, or unspecified chronic kidney disease; Z99.81 Dependence on supplemental oxygen; Z87.891 Personal history of nicotine dependence; I25.10 Atherosclerotic heart disease of native coronary artery without angina pectoris; Z95.1 Presence of aortocoronary bypass graft; E11.22 Type 2 diabetes mellitus with diabetic chronic kidney disease; N18.2 Chronic kidney disease, stage 2 (mild); I50.9 Heart failure, unspecified; Z79.4 Long term (current) use of insulin; I35.0 Nonrheumatic aortic (valve) stenosis; G47.33 Obstructive sleep apnea (adult) (pediatric); Z99.89 Dependence on other enabling machines and devices; E78.00 Pure hypercholesterolemia, unspecified; E11.40 Type 2 diabetes mellitus with diabetic neuropathy, unspecified; Z87.442 Personal history of urinary calculi; Z91.199 Patient's noncompliance with other medical treatment and regimen due to unspecified reason; I95.1 Orthostatic hypotension; I48.91 Unspecified atrial fibrillation; D69.6 Thrombocytopenia, unspecified; R31.9 Hematuria, unspecified
CPT/HCPCS: 36415; 36416; 36600; 71045; 71275; 74176; 78452; 80051; 80053; 81001; 81003; 81015; 82330; 82550; 82805; 82962; 83036; 83605; 83735; 83880; 84145; 84484; 85025; 86140; 87040; 87486; 87581; 87633; 93005; 93017; 94640; 96365; 96372; 96375; 97116; 97162; 99285; A9500; C8929; J0280; J1650; J1815; J1956; J2785; J2919; J7030; J7040; J7613; Q9956; Q9967

== ENCOUNTER 2024-03-01 14:41 | Emergency (ER) | payer OTHER, MEDICARE, SELFPAY ==
[2024-03-01] VITALS (9 sets, daily range): BP systolic 86–160; BP diastolic 59–94; PULSE 61–83; RESP 15–20; TEMP 36.5; O2SAT 96–100; BMI 34.2
--- NOTE | 2024-03-01 14:43 | ECG_ITS ---
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 Measurements Intervals [place] Rate: 69 P: 42 NH: 159 QRS: -66 QRSD: 117 T: 23 QT: 430 QTc: 463 Interpretive Statements SINUS RHYTHM WITH OCCASIONAL VENTRICULAR PREMATURE COMPLEXES PATTERN CONSISTENT WITH PULMONARY DISEASE LEFT ANTERIOR FASCICULAR BLOCK [QRS AXIS <= -45, QR IN I, RS IN II] Compared to ECG 02/18/2024 17:33:51 Ventricular premature complex(es) now present Myocardial infarct finding no longer present Electronically Signed On 03-02-2024 7:47:40 CDT by Nicholas Gregg M.D. [email or web address]
--- NOTE | 2024-03-01 14:57 | XRR_ITS ---
PROCEDURE INFORMATION: Exam: XR Chest Exam date and time: 03/01/2024 3:11 PM Age: 78 years old Clinical indication: Cough and dyspnea; Prior surgery; Surgery date: 6+ months; Surgery type: Cabg, ribs; Additional info: Dyspnea/cough TECHNIQUE: Imaging protocol: Radiologic exam of the chest. Views: 1 view. COMPARISON: CT angio chest PE protcl [id number] 02/18/2024 1:46 PM FINDINGS: Lungs: Unremarkable. No consolidation. Pleural spaces: There is minimal blunting of the left costophrenic angle. This may reflect a small amount of pleural fluid or pleural thickening. No pneumothorax is identified. Heart/Mediastinum: The heart is borderline enlarged. Sternal wires are present from prior cardiac surgery. There is calcified plaque involving the aorta. Bones/joints: There are postoperative changes involving multiple ribs on the left. There are old-appearing rib fractures on the right. XR/XR chest 1V portable [id number] IMPRESSION: 1. Minimal blunting left costophrenic angle.
[2024-03-01 15:03] LABS: Hematocrit 42.8 % (37-53); Mean Corpuscular HGB Conc 33.9 g/dL (30-55); Mean Corpuscular Hemoglobin 31.7 pg (27-33); Mean Corpuscular Volume 93.4 fl (82-101); Mean Platelet Volume 11.2 fL (7.4-10.4); Platelet Count 160 10^3/cmm (157-399); Red Blood Count 4.58 10^6/uL (3.85-5.65); Red Cell Distribution Width 14.9 % (12.1-15.1); White Blood Count 10.34 10^3/uL (3.29-11.43)
[2024-03-01 15:16] LABS: INR 0.92 (0.8-1.2)
[2024-03-01 15:21] LABS: Alanine Aminotransferase 16 U/L (0-41); Alkaline Phosphatase 87 U/L (40-130); Anion Gap 16.9 (5-19); Aspartate Amino Transferase 25 U/L (0-40); Blood Urea Nitrogen 17 mg/dL (8-23); Calcium 9.2 mg/dL (8.5-10.5); Carbon Dioxide 26 mmol/L (22-29); Chloride 101 mmol/L (98-107); Creatinine Clr Calc Pharmacy 51.9766; Globulin 3.1 g/dL (1.3-4.6); Glucose 100 mg/dL (65-115); Osmolality Calculated 292 mOsm/kg (285-295); Potassium 3.9 mmol/L (3.5-5.1); Sodium 140 mmol/L (136-145); Total Protein 7.1 g/dL (6.6-8.7)
--- NOTE | 2024-03-01 15:26 | ED_ITS ---
Documented by User: Sav Crabtree DO 03/02/24 06:42 HPI - SOB/Dyspnea 2 General: Chief Complaint: Shortness of Breath/Dyspnea Stated Complaint: rapid Time Seen by Provider: 03/01/24 14:43 History of Present Illness: HPI Narrative: 78-year-old male presents to the emergen cy room after a rapid response at the heart center at the medical office building. Patient began having dizziness and complaint difficulty breathing he has been prescribed oxygen but was not wearing it. Rapid response was called on arrival here he is on 5 L at 100% when he came in the room we titrated him down to 2 L and he remained at 97 to 99%. Patient has had recent cardiac workup through our organization. He has significant moderate bruising on the left chest wall that came after a transthoracic echocardiogram. He is diabetic. He has a history of coronary artery disease he has some mild chest discomfort with this as well. Recent blood count showed thrombocytopenia with a platelet count of 87 Associated symptoms: Deny abdominal pain, chest pain or fever(s) Related Data Home Medications Medication Instructions Recorded Confirmed insulin glargine 100 unit/mL 50 unit SUBCUT DAILY@0600 07/19/19 03/01/24 subcutaneous solution (Lantus U-100 Insulin) clopidogrel 75 mg tablet (Plavix) 75 mg PO DAILY 08/02/21 03/01/24 oxygen-air delivery systems 08/02/21 03/01/24 omega 6-bxd-umi-fish oil 300 1 cap PO BID 03/05/22 03/01/24 mg-1,000 mg capsule (Fish Oil) diclofenac sodium 1 % topical gel 2 g topical QID 09/12/23 03/01/24 methocarbamol 500 mg tablet 500 mg PO TID muscle spasm 09/12/23 03/01/24 aspirin 81 mg chewable tablet 81 mg PO DAILY 02/18/24 03/01/24 atorvastatin 80 mg tablet 40 mg PO QPM 02/18/24 03/01/24 empagliflozin 25 mg tablet 25 mg PO DAILY 02/18/24 03/01/24 (Jardiance) folic acid 1 mg tablet 1 mg PO DAILY 02/18/24 03/01/24 furosemide 40 mg tablet (Lasix) 40 mg PO QAM 02/18/24 03/01/24 glipizide 10 mg tablet 10 mg PO BID 02/18/24 03/01/24 Previous Rx's Medication Instructions Recorded hinged knee brace, bilateral #1 ea 10/01/23 doxycycline monohydrate 100 mg 100 mg PO BID #8 tabs 02/19/24 tablet metoprolol succinate 25 mg 25 mg PO DAILY #30 tabs 02/19/24 tablet,extended release 24 hr Allergies Allergy/AdvReac Type Severity Reaction Status Date / Time Penicillins Allergy ALGY-Difficulty Verified 03/01/24 13:52 Breathing Review of Systems 2 Const: Denies: fever(s) or chills Card: Denies: chest pain Resp: Denies: dyspnea GI: Denies: abdominal pain : Denies: dysuria, urinary frequency or urinary urgency Musc: Denies: neck pain or back pain Skin/Breast: Denies: rash PFSH ED 2 PFSH: Medical History COPD with hypoxia Chronic kidney disease Renal calculi Moderate aortic stenosis by prior echocardiogram Coronary artery disease CABG x 4 in 2011, history of sternal nonunion. 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 Complicating treatment of stones Uric acid urolithiasis Hx of chest wall injury COPD (chronic obstructive pulmonary disease) Chronically on 3 L of oxygen Congestive heart failure Moderate aortic stenosis last echocardiogram Diabetes type 2, uncontrolled Sleep apnea On CPAP On home O2 History of kidney stones High cholesterol Neuropathy Surgical History Status post placement of ureteral stent History of quadruple bypass Hx of lithotripsy Family History Mother , at age 76 COPD (chronic obstructive pulmonary disease) Father , at age 68-aortic aneurysm No problems noted. Social History Smoking and tobacco/nicotine status: former use of tobacco/nicotine Alcohol intake: former Substance/Drug Use: never Marital status: Current occupational status: retired Current gender identity: Male Physical Exam 2 Const: COMMON NORMALS: no acute distress GENERAL APPEARANCE: cooperative and comfortable ORIENTATION/CONSCIOUSNESS: Yes awake, Yes oriented to person, Yes oriented to place and Yes oriented to time HENMT: COMMON NORMALS: normocephalic, atraumatic and hearing grossly normal bilaterally HEAD & SCALP: normocephalic and atraumatic Chest: OTHER: Severe bruising left anterior chest wall Resp: COMMON NORMALS: normal respiratory effort, No retractions, No use of accessory muscles and clear to auscultation bilaterally AUSCULTATION: clear to auscultation bilaterally Cardio: COMMON NORMALS: regular rate, regular rhythm and No murmurs present (Cardio) RATE: regular rate RHYTHM: regular rhythm GI: COMMON NORMALS: Soft to palpation and No hepatosplenomegaly present A USCULTATION: Yes normoactive bowel sounds PALPATION: Yes Soft to palpation, No Tenderness to palpation present (GI), No Guarding due to palpation present (GI) and Yes No hepatosplenomegaly present Extremity: COMMON NORMALS: normal to inspection, capillary refill normal, no clubbing, cyanosis or edema, no calf tenderness and no pedal edema Neuro: SENSORIUM/ORIENTATION: Yes oriented to person, Yes oriented to place and Yes oriented to time Skin: COMMON NORMALS: no rashes or lesions noted GENERAL SKIN EXAM: no rashes or lesions noted Course 2 Vital Signs: Vital signs: Vital Signs Temperature 97.7 F 03/01/24 14:50 Pulse Rate 78 03/01/24 20:04 Respiratory Rate 18 03/01/24 20:04 Blood Pressure 113/71 03/01/24 20:04 Pulse Oximetry 96 03/01/24 20:04 Oxygen Delivery Me thod Nasal Cannula 03/01/24 19:11 Oxygen Flow Rate 2 03/01/24 19:11 MDM - SOB/Dyspnea Medical Decision Making Care signed out to Dr. Phillips at change of shift. See final notes for diagnosis and disposition. Lab Data 03/01/24 14:57 03/01/24 14:57 Labs/Radiology: Laboratory Results WBC 10.34 10^3/uL (3.29-11.43) 03/01/24 14:57 RBC 4.58 10^6/uL (3.85-5.65) 03/01/24 14:57 Hgb 14.50 g/dL (11.27-16.99) 03/01/24 14:57 Hct 42.8 % (37-53) 03/01/24 14:57 MCV 93.4 fl (82-101) 03/01/24 14:57 MCH 31.7 pg (27-33) 03/01/24 14:57 MCHC 33.9 g/dL (30-55) 03/01/24 14:57 RDW 14.9 % (12.1-15.1) 03/01/24 14:57 Plt Count 160 10^3/cmm (157-399) 03/01/24 14:57 MPV 11.2 fL (7.4-10.4) H 03/01/24 14:57 Lymph % (Auto) Not Reportable 03/01/24 14:57 [place] % (Auto) Not Reportable 03/01/24 14:57 Lymph # (Auto) Not Reportable 03/01/24 14:57 [place] # (Auto) Not Reportable 03/01/24 14:57 Total Counted 100 (0-100) 03/01/24 14:57 Atypical Lymphs % 16.0 % (0-5) H 03/01/24 14:57 Segmented Neutrophils 28 % 03/01/24 14:57 Abs Segm Neuts (Man) 2.9 10/cmm (1.6-7.1) 03/01/24 14:57 Band Neutrophils Not Reportable 03/01/24 14:57 Absolute Lymphocytes 7.1 10^3/cmm (1.2-3.4) H 03/01/24 14:57 Lymphocytes (Manual) 53 % 03/01/24 14:57 Monocytes (Manual) 3.0 % 03/01/24 14:57 Absolute Monocytes 0.3 10^3/cmm (0.1-0.6) 03/01/24 14:57 Eosinophils (Manual) 0 % 03/01/24 14:57 Absolute Eosinophils 0.0 10^3/cmm (0.0-0.7) 03/01/24 14:57 Basophils (Manual) 0.0 % 03/01/24 14:57 Absolute Basophils 0.0 10^3/cmm (0.0-0.2) 03/01/24 14:57 Platelet Estimate Normal (Normal) 03/01/24 14:57 PT 12.70 SECONDS (12.1-14.9) 03/01/24 14:57 INR 0.92 (0.8-1.2) 03/01/24 14:57 Sodium 140 mmol/L (136-145) 03/01/24 14:57 Potassium 3.9 mmol/L (3.5-5.1) 03/01/24 14:57 Chloride 101 mmol/L (98-107) 03/01/24 14:57 Carbon Dioxide 26 mmol/L (22-29) 03/01/24 14:57 Anion Gap 16.9 (5-19) 03/01/24 14:57 BUN 17 mg/dL (8-23) 03/01/24 14:57 Creatinine 1.4 mg/dL (0.7-1.2) H 03/01/24 14:57 GFR Calculation Not Reportable 03/01/24 14:57 Glucose 100 mg/dL (65-115) 03/01/24 14:57 POC Glucose 105 mg/dL (70-110) 03/01/24 16:53 Calculated Osmolality 292 mOsm/kg (285-295) 03/01/24 14:57 Calcium 9.2 mg/dL (8.5-10.5) 03/01/24 14:57 Total Bilirubin 2.0 mg/dL (0.15-1.2) H 03/01/24 14:57 AST 25 U/L (0-40) 03/01/24 14:57 ALT 16 U/L (0-41) 03/01/24 14:57 Alkaline Phosphatase 87 U/L (40-130) 03/01/24 14:57 Troponin T Baseline 37 ng/L (0-15) H 03/01/24 14:57 Troponin T 120 Minute 34.98 ng/L (0-15) H 03/01/24 16:59 Delta Troponin T -2.02 ABS# (0-10) L 03/01/24 16:59 Total Protein 7.1 g/dL (6.6-8.7) 03/01/24 14:57 Albumin 4.0 g/dL (3.5-5.2) 03/01/24 14:57 Globulin 3.1 g/dL (1.3-4.6) 03/01/24 14:57 Urine Color Yellow (Yellow) 03/01/24 15:33 Urine Appearance Clear (CLEAR) 03/01/24 15:33 Urine pH 6.5 (5-7) 03/01/24 15:33 Ur Specific [place] 1.021 (1.005-1.030) 03/01/24 15:33 Urine Protein Trace (Negative) A 03/01/24 15:33 Urine Glucose (UA) 3+ (Normal) H 03/01/24 15:33 Urine Ketones Negative (Negative) 03/01/24 15:33 Urine Blood Negative (Negative) 03/01/24 15:33 Urine Nitrate Negative (Negative) 03/01/24 15:33 Urine Bilirubin Negative (Negative) 03/01/24 15:33 Urine Urobilinogen 2.0 mg/dL (Negative) H 03/01/24 15:33 Ur Leukocyte Esterase Negative (Negative) 03/01/24 15:33 Urine RBC 0-2 /hpf (0-2) 03/01/24 15:33 Urine WBC 0-5 /hpf (0-5) 03/01/24 15:33 Ur Squamous Epith Cells 0-5 /hpf (0-5) 03/01/24 15:33 Amorphous Sediment Not Reportable 03/01/24 15:33 Urine Bacteria None seen /hpf (NONE) 03/01/24 15:33 Hyaline Casts 0.40 /lpf 03/01/24 15:33 Monoscreen Negative (Negative) 03/01/24 14:57 Discharge Plan Discharge Patient Disposition: Home Clinical Impression: Orthostatic hypotension, Coronary artery disease, New onset of congestive heart failure Condition: Stable Prescriptions: No Action clopidogrel [Plavix] 75 mg tablet 75 mg PO DAILY (DME) oxygen-air delivery systems Device See Rx Instructions .Route Rx Instructions: As directed omega 6-yef-nek-fish oil [Fish Oil] 300-1,000 mg capsule 1 cap PO BID (DME) hinged knee brace, bilateral See Rx Instructions .Route .MEDSUPPLY Qty: 1 0RF Rx Instructions: As directed Lantus U-100 Insulin 100 unit/mL solution 50 unit SUBCUT DAILY@0600 diclofenac sodium 1 % Gel 2 g TOPICAL QID Rx Instructions: apply to single elbow, wrist or hand; for hand includes palm/fingers/back of hand methocarbamol 500 mg Tablet 500 mg PO TID furosemide [Lasix] 40 mg Tablet 40 mg PO QAM atorvastatin 80 mg Tablet 40 mg PO QPM glipizide 10 mg Tablet 10 mg PO BID aspirin 81 mg Tablet,Chewable 81 mg PO DAILY folic acid 1 mg Tablet 1 mg PO DAILY Jardiance 25 mg Tablet 25 mg PO DAILY doxycycline monohydrate 100 mg Tablet 100 mg PO BID Qty: 8 0RF metoprolol succinate 25 mg tablet extended release 24 hr 25 mg PO DAILY Qty: 30 0RF Discharge Orders: Discharge ED (Routine); Ordered 03/01/24 Ordered By: Lola Phillips Referrals: Radha Blevins MD [Primary Care Provider] - Discharge Diet: Usual diet Discharge Activity: Increase activity as tolerated Patient Instructions: Heart Failure (ED) Activity Restrictions/Additional Instructions: Thank you for choosing [facility] for your healthcare needs today. Please realize this is an emergency room and that we are providing you with a medical screening exam and this may not be complete and all inclusive of all the testing and or work up that you may need to determine your ailment or severity of your illness. You have been screened and evaluated and felt safe for discharge. Health conditions do change or evolve sometimes and as such it is important that you follow up with your Primary Doctor to be re checked, 3-5 days is a general good time frame for follow up. You are always welcome to return to the ED for re assessment if your symptoms are worsening or you have new concerns Coding Level of Care Code ED General Accounting Manager for Chg Fwd Documented by User: Lola Phillips MD 03/01/24 19:35 HPI - SOB/Dyspnea 2 General: Chief Complaint: Shortness of Breath/Dyspnea Stated Complaint: rapid Time Seen by Provider: 03/01/24 14:43 Related Data Home Medications Medication Instructions Recorded Confirmed insulin glargine 100 unit/mL 50 unit SUBCUT DAILY@0600 07/19/19 03/01/24 subcutaneous solution (Lantus U-100 Insulin) clopidogrel 75 mg tablet (Plavix) 75 mg PO DAILY 08/02/21 03/01/24 oxygen-air delivery systems 08/02/21 03/01/24 omega 3-ojz-lud-fish oil 300 1 cap PO BID 03/05/22 03/01/24 mg-1,000 mg capsule (Fish Oil) diclofenac sodium 1 % topical gel 2 g topical QID 09/12/23 03/01/24 methocarbamol 500 mg tablet 500 mg PO TID muscle spasm 09/12/23 03/01/24 aspirin 81 mg chewable tablet 81 mg PO DAILY 02/18/24 03/01/24 atorvastatin 80 mg tablet 40 mg PO QPM 02/18/24 03/01/24 empagliflozin 25 mg tablet 25 mg PO DAILY 02/18/24 03/01/24 (Jardiance) folic acid 1 mg tablet 1 mg PO DAILY 02/18/24 03/01/24 furosemide 40 mg tablet (Lasix) 40 mg PO QAM 02/18/24 03/01/24 glipizide 10 mg tablet 10 mg PO BID 02/18/24 03/01/24 Previous Rx's Medication Instructions Recorded hinged knee brace, bilateral #1 ea 10/01/23 doxycycline monohydrate 100 mg 100 mg PO BID #8 tabs 02/19/24 tablet metoprolol succinate 25 mg 25 mg PO DAILY #30 tabs 02/19/24 tablet,extended release 24 hr Allergies Allergy/AdvReac Type Severity Reaction Status Date / Time Penicillins Allergy ALGY-Difficulty Verified 03/01/24 13:52 Breathing PFSH ED 2 PFSH: Medical History COPD with hypoxia Chronic kidney disease Renal calculi Moderate aortic stenosis by prior echocardiogram Coronary artery disease CABG x 4 in 2011, history of sternal nonunion. 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 Complicating treatment of stones Uric acid urolithiasis Hx of chest wall injury COPD (chronic obstructive pulmonary disease) Chronically on 3 L of oxygen Congestive heart failure Moderate aortic stenosis last echocardiogram Diabetes type 2, uncontrolled Sleep apnea On CPAP On home O2 History of kidney stones High cholesterol Neuropathy Surgical History Status post placement of ureteral stent History of quadruple bypass Hx of lithotripsy Family History Mother , at age 76 COPD (chronic obstructive pulmonary disease) Father , at age 68-aortic aneurysm No problems noted. Social History Smoking and tobacco/nicotine status: former use of tobacco/nicotine Alcohol intake: former Substance/Drug Use: never Marital status: Current occupational status: retired Current gender identity: Male Course 2 Vital Signs: Vital signs: Vital Signs Temperature 97.7 F 03/01/24 14:50 Pulse Rate 78 03/01/24 20:04 Respiratory Rate 18 03/01/24 20:04 Blood Pressure 113/71 03/01/24 20:04 Pulse Oximetry 96 03/01/24 20:04 Oxygen Delivery Me thod Nasal Cannula 03/01/24 19:11 Oxygen Flow Rate 2 03/01/24 19:11 MDM - SOB/Dyspnea Medical Decision Making Care signed out to Dr. Phillips at change of shift. See final notes for diagnosis and disposition. Lab Review: Laboratory results were reviewed and interpreted by myself the emergency room physician. No leukocytosis. No anemia. Platelets are 160. BUN/creatinine are 17 and 1.4. This is quite near his baseline. He has been 1.2 recently but also been 1.5, 1.8. Urinalysis is negative for infection. Urine appears slightly concentrated. Serial troponins are 34 and 37. This is his baseline. This is not a non-STEMI. This is a slightly elevated troponin at baseline secondary to his chronic renal insufficiency. Orthostatic vital signs: Patient does have a significant standing orthostasis. 500 cc of fluid have been given. I reviewed the patient's medical record. Reexamination: Patient remained stable. No increased work of breathing. No altered mental status. No focal motor deficits. He has minimal swelling compared to what he had a few days ago he says. He does seem he is just slightly over diuresed. He is receiving some fluids and after speaking with him and his girlfriend they are comfortable with going home. They were very concerned about the recent news of an EF of 40%. I discussed with him that this is not 40 of 100 but rather ejection fraction is range between 70 and at the very worst 10 to 15%. That he has mild new congestive heart failure. The expressed understanding. We discussed fluid balance and daily weights. Chest x-ray: No signs of heart failure. He does have sternotomy wires. Also hardware over broken ribs on the left. No acute process. No infiltrate. No pneumothorax. This was reviewed and interpreted by myself the ER physician. Assessment and plan: Orthostatic hypotension New onset congestive heart failure Coronary artery disease ?500 cc normal saline - Discharged home - Discussed findings and plan with patient. Answered any questions. - All laboratory values were reviewed and interpreted personally by myself, the ER physician - All imaging was reviewed and interpreted personally by myself, the ER physician. - Evaluation and treatment of this problem were appropriate in the emergency setting Lab Data 03/01/24 14:57 03/01/24 14:57 Labs/Radiology: Laboratory Results WBC 10.34 10^3/uL (3.29-11.43) 03/01/24 14:57 RBC 4.58 10^6/uL (3.85-5.65) 03/01/24 14:57 Hgb 14.50 g/dL (11.27-16.99) 03/01/24 14:57 Hct 42.8 % (37-53) 03/01/24 14:57 MCV 93.4 fl (82-101) 03/01/24 14:57 MCH 31.7 pg (27-33) 03/01/24 14:57 MCHC 33.9 g/dL (30-55) 03/01/24 14:57 RDW 14.9 % (12.1-15.1) 03/01/24 14:57 Plt Count 160 10^3/cmm (157-399) 03/01/24 14:57 MPV 11.2 fL (7.4-10.4) H 03/01/24 14:57 Lymph % (Auto) Not Reportable 03/01/24 14:57 [place] % (Auto) Not Reportable 03/01/24 14:57 Lymph # (Auto) Not Reportable 03/01/24 14:57 [place] # (Auto) Not Reportable 03/01/24 14:57 Total Counted 100 (0-100) 03/01/24 14:57 Atypical Lymphs % 16.0 % (0-5) H 03/01/24 14:57 Segmented Neutrophils 28 % 03/01/24 14:57 Abs Segm Neuts (Man) 2.9 10/cmm (1.6-7.1) 03/01/24 14:57 Band Neutrophils Not Reportable 03/01/24 14:57 Absolute Lymphocytes 7.1 10^3/cmm (1.2-3.4) H 03/01/24 14:57 Lymphocytes (Manual) 53 % 03/01/24 14:57 Monocytes (Manual) 3.0 % 03/01/24 14:57 Absolute Monocytes 0.3 10^3/cmm (0.1-0.6) 03/01/24 14:57 Eosinophils (Manual) 0 % 03/01/24 14:57 Absolute Eosinophils 0.0 10^3/cmm (0.0-0.7) 03/01/24 14:57 Basophils (Manual) 0.0 % 03/01/24 14:57 Absolute Basophils 0.0 10^3/cmm (0.0-0.2) 03/01/24 14:57 Platelet Estimate Normal (Normal) 03/01/24 14:57 PT 12.70 SECONDS (12.1-14.9) 03/01/24 14:57 INR 0.92 (0.8-1.2) 03/01/24 14:57 Sodium 140 mmol/L (136-145) 03/01/24 14:57 Potassium 3.9 mmol/L (3.5-5.1) 03/01/24 14:57 Chloride 101 mmol/L (98-107) 03/01/24 14:57 Carbon Dioxide 26 mmol/L (22-29) 03/01/24 14:57 Anion Gap 16.9 (5-19) 03/01/24 14:57 BUN 17 mg/dL (8-23) 03/01/24 14:57 Creatinine 1.4 mg/dL (0.7-1.2) H 03/01/24 14:57 GFR Calculation Not Reportable 03/01/24 14:57 Glucose 100 mg/dL (65-115) 03/01/24 14:57 POC Glucose 105 mg/dL (70-110) 03/01/24 16:53 Calculated Osmolality 292 mOsm/kg (285-295) 03/01/24 14:57 Calcium 9.2 mg/dL (8.5-10.5) 03/01/24 14:57 Total Bilirubin 2.0 mg/dL (0.15-1.2) H 03/01/24 14:57 AST 25 U/L (0-40) 03/01/24 14:57 ALT 16 U/L (0-41) 03/01/24 14:57 Alkaline Phosphatase 87 U/L (40-130) 03/01/24 14:57 Troponin T Baseline 37 ng/L (0-15) H 03/01/24 14:57 Troponin T 120 Minute 34.98 ng/L (0-15) H 03/01/24 16:59 Delta Troponin T -2.02 ABS# (0-10) L 03/01/24 16:59 Total Protein 7.1 g/dL (6.6-8.7) 03/01/24 14:57 Albumin 4.0 g/dL (3.5-5.2) 03/01/24 14:57 Globulin 3.1 g/dL (1.3-4.6) 03/01/24 14:57 Urine Color Yellow (Yellow) 03/01/24 15:33 Urine Appearance Clear (CLEAR) 03/01/24 15:33 Urine pH 6.5 (5-7) 03/01/24 15:33 Ur Specific [place] 1.021 (1.005-1.030) 03/01/24 15:33 Urine Protein Trace (Negative) A 03/01/24 15:33 Urine Glucose (UA) 3+ (Normal) H 03/01/24 15:33 Urine Ketones Negative (Negative) 03/01/24 15:33 Urine Blood Negative (Negative) 03/01/24 15:33 Urine Nitrate Negative (Negative) 03/01/24 15:33 Urine Bilirubin Negative (Negative) 03/01/24 15:33 Urine Urobilinogen 2.0 mg/dL (Negative) H 03/01/24 15:33 Ur Leukocyte Esterase Negative (Negative) 03/01/24 15:33 Urine RBC 0-2 /hpf (0-2) 03/01/24 15:33 Urine WBC 0-5 /hpf (0-5) 03/01/24 15:33 Ur Squamous Epith Cells 0-5 /hpf (0-5) 03/01/24 15:33 Amorphous Sediment Not Reportable 03/01/24 15:33 Urine Bacteria None seen /hpf (NONE) 03/01/24 15:33 Hyaline Casts 0.40 /lpf 03/01/24 15:33 Monoscreen Negative (Negative) 03/01/24 14:57 All radiology interpretation(s) finalized by discharge Discharge Plan Discharge Patient Disposition: Home Clinical Impression: Orthostatic hypotension, Coronary artery disease, New onset of congestive heart failure Condition: Stable Prescriptions: No Action clopidogrel [Plavix] 75 mg tablet 75 mg PO DAILY (DME) oxygen-air delivery systems Device See Rx Instructions .Route Rx Instructions: As directed omega 4-pqe-tru-fish oil [Fish Oil] 300-1,000 mg capsule 1 cap PO BID (DME) hinged knee brace, bilateral See Rx Instructions .Route .MEDSUPPLY Qty: 1 0RF Rx Instructions: As directed Lantus U-100 Insulin 100 unit/mL solution 50 unit SUBCUT DAILY@0600 diclofenac sodium 1 % Gel 2 g TOPICAL QID Rx Instructions: apply to single elbow, wrist or hand; for hand includes palm/fingers/back of hand methocarbamol 500 mg Tablet 500 mg PO TID furosemide [Lasix] 40 mg Tablet 40 mg PO QAM atorvastatin 80 mg Tablet 40 mg PO QPM glipizide 10 mg Tablet 10 mg PO BID aspirin 81 mg Tablet,Chewable 81 mg PO DAILY folic acid 1 mg Tablet 1 mg PO DAILY Jardiance 25 mg Tablet 25 mg PO DAILY doxycycline monohydrate 100 mg Tablet 100 mg PO BID Qty: 8 0RF metoprolol succinate 25 mg tablet extended release 24 hr 25 mg PO DAILY Qty: 30 0RF Discharge Orders: Discharge ED (Routine); Ordered 03/01/24 Ordered By: Lola Phillips Referrals: Radha Blevins MD [Primary Care Provider] - Discharge Diet: Usual diet Discharge Activity: Increase activity as tolerated Patient Instructions: Heart Failure (ED) Activity Restrictions/Additional Instructions: Thank you for choosing [facility] for your healthcare needs today. Please realize this is an emergency room and that we are providing you with a medical screening exam and this may not be complete and all inclusive of all the testing and or work up that you may need to determine your ailment or severity of your illness. You have been screened and evaluated and felt safe for discharge. Health conditions do change or evolve sometimes and as such it is important that you follow up with your Primary Doctor to be re checked, 3-5 days is a general good time frame for follow up. You are always welcome to return to the ED for re assessment if your symptoms are worsening or you have new concerns Coding Level of Care Code ED General Accounting Manager for Adelaida Hayes
[2024-03-01 15:38] LABS: Absolute Segmented Neutrophil 2.9 10/cmm (1.6-7.1); Eosinophils 0 %; Lymphocytes 53 %; Lymphocytes Absolute 7.1 10^3/cmm (1.2-3.4); Monocytes Absolute 0.3 10^3/cmm (0.1-0.6); Platelet Estimate Normal (Normal); Segmented Neutrophils 28 %; Total Cells Counted 100 (0-100)
[2024-03-01 15:46] LABS: Charge for UA Resulting for Rev
[2024-03-01 15:56] LABS: Bacteria Urine None Seen /hpf; RBC Urine 0-2 /hpf (0-2); Squamous Epithelial Cell Urine 0-5 /hpf (0-5); WBC Urine 0-5 /hpf (0-5)
[2024-03-01 16:10] LABS: Bilirubin Urine Negative (Negative); Blood Urine Negative (Negative); Glucose Urine UA 3+ (Normal); Ketones Urine Negative (Negative); Leukocyte Esterase Urine Negative (Negative); Nitrate Urine Negative (Negative); Protein Urine Trace (Negative); Specific Gravity, Urine 1.021 (1.005-1.030); Urine Appearance Clear (CLEAR); Urine Color Yellow (Yellow); pH Urine 6.5 (5-7)
[2024-03-01 16:23] LABS: Glucose Point of Care 89 mg/dL (70-110)
--- NOTE | 2024-03-01 16:51 | ECG_ITS ---
[facility] Test Date: 2024-03-01 Pat Name: Ambrose Villa Department: Room: Gender: Male Mental Health Associate: : 1945 Requested By: Sav Taylor Order Number: [id number] Denice MD: Nicholas Gregg M.D. Measurements Intervals [place] Rate: 64 P: 52 CA: 176 QRS: -73 QRSD: 125 T: 52 QT: 430 QTc: 447 Interpretive Statements SINUS RHYTHM LEFT ANTERIOR FASCICULAR BLOCK [QRS AXIS <= -45, QR IN I, RS IN II] Compared to ECG 03/01/2024 14:43:06 Ventricular premature complex(es) no longer present Electronically Signed On 03-02-2024 7:49:13 CDT by Nicholas Gregg M.D. [email or web address]
[2024-03-01 16:56] LABS: Glucose Point of Care 105 mg/dL (70-110)
[2024-03-01 17:24] LABS: Troponin(5th) Baseline 37 ng/L (0-15)
[2024-03-01 17:49] LABS: Troponin 5 2HR 34.98 ng/L (0-15)
[2024-03-01 17:50] LABS: Monoscreen Negative (Negative)
[2024-03-01 17:54] LABS: Troponin 5 2HR Delta -2.02 ABS# (0-10)
--- NOTE | 2024-03-01 18:27 | ECG_ITS ---
[facility] Test Date: 2024-03-01 Pat Name: Ambrose Villa Department: Room: Gender: Male Passenger Agent: : 1945 Requested By: Sav Taylor Order Number: [id number] Denice MD: Nicholas Gregg M.D. Measurements Intervals [place] Rate: 64 P: 60 AL: 186 QRS: -71 QRSD: 129 T: 57 QT: 427 QTc: 443 Interpretive Statements SINUS RHYTHM LEFT ANTERIOR FASCICULAR BLOCK [QRS AXIS <= -45, QR IN I, RS IN II] Compared to ECG 03/01/2024 17:05:09 No significant changes Electronically Signed On 03-02-2024 7:49:59 CDT by Nicholas Gregg M.D. [email or web address]
[2024-03-01] MEDS: sodium chloride 0.9% 1,000 ML 999 ML IV (18:31)
== END 2024-03-01 20:01 | disposition home or self-care (01) ==
PROVIDERS: Family Medicine; Emergency Provider Emergency Medicine; PCP Family Medicine
DX: I95.1 Orthostatic hypotension (principal); I25.10 Atherosclerotic heart disease of native coronary artery without angina pectoris; I50.9 Heart failure, unspecified; Z79.02 Long term (current) use of antithrombotics/antiplatelets; Z79.4 Long term (current) use of insulin; Z79.82 Long term (current) use of aspirin; Z79.84 Long term (current) use of oral hypoglycemic drugs; Z87.891 Personal history of nicotine dependence; E11.22 Type 2 diabetes mellitus with diabetic chronic kidney disease; N18.9 Chronic kidney disease, unspecified; Z95.1 Presence of aortocoronary bypass graft; J44.9 Chronic obstructive pulmonary disease, unspecified; Z99.81 Dependence on supplemental oxygen
CPT/HCPCS: 36415; 36416; 71045; 80053; 81003; 81015; 82962; 84484; 85007; 85025; 85610; 86308; 93005; 96360; 99213; 99285; J7030

== ENCOUNTER 2024-04-29 09:36 | Observation (INO) | payer OTHER, MEDICARE, SELFPAY ==
[2024-04-29] VITALS (33 sets, daily range): BP systolic 94–153; BP diastolic 49–87; PULSE 60–95; RESP 12–27; TEMP 36.5–36.8; O2SAT 88–96; BMI 35.2
--- NOTE | 2024-04-29 10:01 | XR_ITS ---
WS: [id number] XR chest 1V portable [id number] REASON FOR EXAM: Weakness FINDINGS: The chest is stable compared to 03/01/2024. Previous sternotomy with aorto coronary artery bypass surgery. Heart is moderately enlarged. There is mild tortuosity of the thoracic aorta. No acute pulmonary parenchymal or pleural abnormality is identified. Chronic flattening of the hemidi aphragm with pleural pericardial scarring and pleural thickening. 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 Multiple old healed right rib fractures. Anterior plate and screw fixation of anterior left third through the fifth ribs. XR/XR chest 1V portable [id number] IMPRESSION: Stable abnormal chest as above without acute abnormality.
--- NOTE | 2024-04-29 10:06 | ED_ITS ---
HPI - Altered Mental Status 2 General: Chief Complaint: Altered Mental Status Stated Complaint: AMS Time Seen by Provider: 04/29/24 10:01 History of Present Illness: 78-year-old man with a history of insuli n-dependent diabetes, COPD and chronic hypoxemic respiratory failure on oxygen at all times, chronic kidney disease, coronary artery disease, and congestive heart failure who presents emergency room with altered mental status. On presentation his blood glucose is in the 40s. Apparently he had to put his dog down this morning and was late getting the breakfast. says his sugar has been dropping quite a bit lately. This morning he had not eaten breakfast because he had to take his dog to the vet to be put down. He was going to come get something to eat and they were at [facility] and he sat down and said he did not know where he was and just seems glassy. He has had some congestion recently.No fevers. No abdominal pain. No chest pain. No increased work of breathing over his baseline. No dysuria. No nausea or vomiting. Related Data Home Medications Medication Instructions Recorded Confirmed insulin glargine 100 unit/mL 50 unit SUBCUT QAM 07/19/19 04/29/24 subcutaneous solution (Lantus U-100 Insulin) clopidogrel 75 mg tablet (Plavix) 75 mg PO DAILY 08/02/21 04/29/24 oxygen-air delivery systems 08/02/21 04/29/24 omega 1-qgc-lpg-fish oil 300 1 cap PO BID 03/05/22 04/29/24 mg-1,000 mg capsule (Fish Oil) diclofenac sodium 1 % topical gel 2 g topical TID PRN joint pain 09/12/23 04/29/24 aspirin 81 mg chewable tablet 81 mg PO DAILY 02/18/24 04/29/24 atorvastatin 80 mg tablet 80 mg PO QPM 02/18/24 04/29/24 empagliflozin 25 mg tablet 25 mg PO DAILY 02/18/24 04/29/24 (Jardiance) folic acid 1 mg tablet 1 mg PO DAILY 02/18/24 04/29/24 glipizide 10 mg tablet 10 mg PO TID 02/18/24 04/29/24 dextromethorphan-guaifenesin 10 10 ml PO Q4H PRN cough/congestion 04/29/24 04/29/24 mg-100 mg/5 mL oral syrup furosemide 20 mg tablet 10 mg PO BID PRN Edema 04/29/24 04/29/24 pioglitazone 45 mg tablet 45 mg PO DAILY 04/29/24 04/29/24 sitagliptin 50 mg tablet 50 mg PO DAILY 04/29/24 04/29/24 Previous Rx's Medication Instructions Recorded hinged knee brace, bilateral #1 ea 10/01/23 metoprolol succinate 25 mg 25 mg PO DAILY #30 tabs 02/19/24 tablet,extended release 24 hr Allergies Allergy/AdvReac Type Severity Reaction Status Date / Time Penicillins Allergy ALGY-Difficulty Verified 04/29/24 09:56 Breathing Review of Systems 2 Narrative: Constitutional symptoms: Negative except as documented in HPI. Skin symptoms: Negative except as documented in HPI. Eye symptoms: Negative except as documented in HPI. ENMT symptoms: Negative except as documented in HPI. Respiratory symptoms: Negative except as documented in HPI. Cardiovascular symptoms: Negative except as documented in HPI. Gastrointestinal symptoms: Negative except as documented in HPI. Genitourinary symptoms: Negative except as documented in HPI. Musculoskeletal symptoms: Negative except as documented in HPI. Neurologic symptoms: Negative except as documented in HPI. Psychiatric symptoms: Negative except as documented in HPI. Endocrine symptoms: Negative except as documented in HPI. PFSH ED 2 PFSH: Medical History COPD with hypoxia Chronic kidney disease Renal calculi Moderate aortic stenosis by prior echocardiogram Coronary artery disease CABG x 4 in 2011, history of sternal nonunion. 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 Complicating treatment of stones Uric acid urolithiasis Hx of chest wall injury COPD (chronic obstructive pulmonary disease) Chronically on 3 L of oxygen Congestive heart failure Moderate aortic stenosis last echocardiogram Diabetes type 2, uncontrolled Sleep apnea On CPAP On home O2 History of kidney stones High cholesterol Neuropathy Surgical History Status post placement of ureteral stent History of quadruple bypass Hx of lithotripsy Family History Mother , at age 76 COPD (chronic obstructive pulmonary disease) Father , at age 68-aortic aneurysm No problems noted. Social History Smoking and tobacco/nicotine status: former use of tobacco/nicotine Alcohol intake: former Substance/Drug Use: never Marital status: Current occupational status: retired Current gender identity: Male Physical Exam 2 Narrative: General: Patient is a bit somnolent. Skin: Warm, dry. Head: Normocephalic, atraumatic. Neck: Supple, trachea midline. Eye: Extraocular movements are intact. Ears, nose, mouth and throat: mucosa moist. Cardiovascular: Regular, Normal peripheral perfusion. Respiratory: Lungs are clear to auscultation, respirations are non-labored, breath sounds are equal, Symmetrical chest wall expansion. Gastrointestinal: Soft, Nontender, Non distended Musculoskeletal: Normal ROM, no deformity. Neurological: Alert and oriented, No focal neurological deficit observed. Psychiatric: Cooperative, appropriate mood & affect. Course 2 Vital Signs: Vital signs: Vital Signs Temperature 97.7 F 04/29/24 09:51 Pulse Rate 66 04/29/24 15:10 Respiratory Rate 27 H 04/29/24 14:30 Blood Pressure 119/52 04/29/24 15:10 Pulse Oximetry 96 04/29/24 15:10 Oxygen Delivery Me thod Nasal Cannula 04/29/24 15:00 Oxygen Flow Rate 3 04/29/24 10:26 MDM - Altered Mental Status Medical Decision Making Medical decision making: Differential diagnosis for the patient with hyperglycemia would include but not be limited to and would be based on the above HPI review of systems and physical exam: DKA. Dehydration. Renal failure. Concern for electrolyte abnormalities. Concern for underlying infection that might result in hyperglycemia. Medical non-compliance Orders placed to evaluate differential diagnosis of the patient with hyperglycemia are based on the above differential, HPI and physical exam. Lab Review: Laboratory results were reviewed and interpreted by myself the emergency room physician. No leukocytosis. No anemia. Stable chronic renal insufficiency with a BUN and creatinine of 24 and 1.5. Blood glucose was significantly low at 26 on his initial draw. No urinary tract infection. He does have some hematuria for which a CT scan was ordered. CT of the abdomen pelvis without contrast: Intraluminal thrombus involving the bladder. Benign cyst of the kidneys. Sigmoid diverticulosis without diverticulitis. Cholelithiasis. No cholecystitis. This was reviewed and interpreted by myself the emergency room physician. I also reviewed the radiology report. I reviewed the patient's medical record. Reexamination: Patient remained stable. No increased work of breathing. No altered mental status. No focal motor deficits. Patient has had drops in his sugar while he is been here but he has remained fairly asymptomatic once he got up above 40. Consultation: I spoke with Dr. Altamirano is on-call with the hospitalist service. He requested CT of the abdomen to evaluate hematuria prior to admission. Assessment and plan: Persistent hypoglycemia Hematuria Encephalopathy ?Patient has required several D10 boluses and has been on a D10 drip at 70 mL/h and continues to have drops in his sugar. -I discussed the patient with the hospitalist on-call who is admitting the patient. - Discussed findings and plan with patient. Answered any questions. - All laboratory values were reviewed and interpreted personally by myself, the ER physician - All imaging was reviewed and interpreted personally by myself, the ER physician. - Evaluation and treatment of this problem were appropriate in the emergency setting Lab Data 04/29/24 10:01 04/29/24 10:01 Radiology Impressions Chest X-Ray 04/29/24 10:01 IMPRESSION: Stable abnormal chest as above without acute abnormality. Abdomen/Pelvis CT 04/29/24 13:25 IMPRESSION: 1. Intraluminal thrombus involving the bladder. This is of uncertain etiology but could be related to prostate enlargement 2. A benign renal cyst or cysts have been detected. No further follow-up imaging is required. 3. Sigmoid diverticulosis 4. Cholelithiasis COMMENTS: Consistent with the [employer]'s Incidental Findings Committee white paper (J Am Trent Radiol 2018): Any incidental renal lesion less than 1 cm or classified as too small to characterize, or any incidental cystic renal lesion characterized as simple-appearing, is likely benign. No follow-up imaging is recommended for these lesions per consensus recommendations based on imaging criteria. Laboratory Results WBC 10.08 10^3/uL (3.29-11.43) 04/29/24 10:01 RBC 5.15 10^6/uL (3.85-5.65) 04/29/24 10:01 Hgb 16.00 g/dL (11.27-16.99) 04/29/24 10:01 Hct 52.6 % (37-53) 04/29/24 10:01 MCV 102.1 fl (82-101) H 04/29/24 10:01 MCH 31.1 pg (27-33) 04/29/24 10:01 MCHC 30.4 g/dL (30-55) 04/29/24 10:01 RDW 14.6 % (12.1-15.1) 04/29/24 10:01 Plt Count 201 10^3/cmm (157-399) 04/29/24 10:01 MPV 11.1 fL (7.4-10.4) H 04/29/24 10:01 Neut % (Auto) 77.3 % 04/29/24 10:01 Lymph % (Auto) 15.4 % 04/29/24 10:01 [place] % (Auto) 5.5 % 04/29/24 10:01 Eos % (Auto) 0.8 % 04/29/24 10:01 Baso % (Auto) 0.4 % 04/29/24 10:01 Neut # (Auto) 7.80 10^3/uL (1.8-7.7) H 04/29/24 10:01 Lymph # (Auto) 1.6 10^3/uL (0.8-4.8) 04/29/24 10:01 [place] # (Auto) 0.6 10^3/uL (0.2-0.9) 04/29/24 10:01 Eos # (Auto) 0.1 10^3/uL (0.0-0.8) 04/29/24 10:01 Baso # (Auto) 0.0 10^3/uL (0.0-0.1) 04/29/24 10:01 Nucleated RBC % (auto) 0 % 04/29/24 10:01 Nucleated RBCs # 0.0 /100WBC 04/29/24 10:01 Sodium 138 mmol/L (136-145) 04/29/24 10:01 Potassium 4.5 mmol/L (3.5-5.1) 04/29/24 10:01 Chloride 98 mmol/L (98-107) 04/29/24 10:01 Carbon Dioxide 29 mmol/L (22-29) 04/29/24 10:01 Anion Gap 15.5 (5-19) 04/29/24 10:01 BUN 24 mg/dL (8-23) H 04/29/24 10:01 Creatinine 1.5 mg/dL (0.7-1.2) H 04/29/24 10:01 GFR Calculation Not Reportable 04/29/24 10:01 Glucose 26 mg/dL (65-115) L* 04/29/24 10:01 POC Glucose 70 mg/dL (70-110) 04/29/24 14:58 Estimat Average Glucose 117 04/29/24 10:01 Hemoglobin A1c 5.7 % (4.0-6.0) 04/29/24 10:01 Calculated Osmolality 286 mOsm/kg (285-295) 04/29/24 10:01 Lactic Acid 0.9 mmol/L (0.5-2.2) 04/29/24 10:01 Calcium 9.3 mg/dL (8.5-10.5) 04/29/24 10:01 Total Bilirubin 0.5 mg/dL (0.15-1.2) 04/29/24 10:01 AST 19 U/L (0-40) 04/29/24 10:01 ALT 14 U/L (0-41) 04/29/24 10:01 Alkaline Phosphatase 79 U/L (40-130) 04/29/24 10:01 C-Reactive Protein 3.0 mg/L (0.0-4.9) 04/29/24 10:01 Total Protein 7.1 g/dL (6.6-8.7) 04/29/24 10:01 Albumin 4.1 g/dL (3.5-5.2) 04/29/24 10:01 Globulin 3.0 g/dL (1.3-4.6) 04/29/24 10:01 Procalcitonin 0.09 ng/mL (0-0.5) 04/29/24 10:01 TSH 1.06 uIU/mL (0.27-4.20) 04/29/24 10:01 Urine Color Red (Yellow) A 04/29/24 10:17 Urine Appearance Clear (CLEAR) 04/29/24 10:17 Urine pH 6.0 (5-7) 04/29/24 10:17 Ur Specific [place] 1.012 (1.005-1.030) 04/29/24 10:17 Urine Protein Negative (Negative) 04/29/24 10:17 Urine Glucose (UA) 2+ (Normal) H 04/29/24 10:17 Urine Ketones Negative (Negative) 04/29/24 10:17 Urine Blood 3+ (Negative) A 04/29/24 10:17 Urine Nitrate Negative (Negative) 04/29/24 10:17 Urine Bilirubin Negative (Negative) 04/29/24 10:17 Urine Urobilinogen 0.2 mg/dL (Negative) 04/29/24 10:17 Ur Leukocyte Esterase Negative (Negative) 04/29/24 10:17 Urine RBC >100 /hpf (0-2) H 04/29/24 10:17 Urine WBC 0-5 /hpf (0-5) 04/29/24 10:17 Ur Squamous Epith Cells 0-5 /hpf (0-5) 04/29/24 10:17 Amorphous Sediment Not Reportable 04/29/24 10:17 Urine Bacteria None seen /hpf (NONE) 04/29/24 10:17 Hyaline Casts 0-4 /lpf H 04/29/24 10:17 All radiology interpretation(s) finalized by discharge Discharge Plan Discharge Patient Disposition: Admitted As Inpatient Admit Provider: Alfredo Rivera Clinical Impression: Hypoglycemia, Hematuria Condition: Stable Coding Level of Care Code ED All Source Collection Manager for Adelaida Hayes
[2024-04-29] MEDS: dextrose 10% 250 ML 1000 ML IV ×3 (10:11→14:10)
--- NOTE | 2024-04-29 10:11 | PC.PHAR ---
[facility] 04/29/24 10:08am
[2024-04-29 10:28] LABS: Basophils % 0.4 %; Eosinophils # 0.1 10^3/uL (0.0-0.8); Eosinophils % 0.8 %; Hematocrit 52.6 % (37-53); Lymphocytes # 1.6 10^3/uL (0.8-4.8); Lymphocytes % 15.4 %; Mean Corpuscular HGB Conc 30.4 g/dL (30-55); Mean Corpuscular Hemoglobin 31.1 pg (27-33); Mean Corpuscular Volume 102.1 fl (82-101); Mean Platelet Volume 11.1 fL (7.4-10.4); Monocytes # 0.6 10^3/uL (0.2-0.9); Monocytes % 5.5 %; Neutrophils % 77.3 %; Nucleated Red Blood Cells % 0 %; Platelet Count 201 10^3/cmm (157-399); Red Blood Count 5.15 10^6/uL (3.85-5.65); Red Cell Distribution Width 14.6 % (12.1-15.1); White Blood Count 10.08 10^3/uL (3.29-11.43)
[2024-04-29 10:34] LABS: Glucose Point of Care 110 mg/dL (70-110)
[2024-04-29 10:49] LABS: Lactic Sepsis W/Reflex 0.9 mmol/L (0.5-2.2)
[2024-04-29 10:50] LABS: Alanine Aminotransferase 14 U/L (0-41); Albumin Level 4.1 g/dL (3.5-5.2); Alkaline Phosphatase 79 U/L (40-130); Anion Gap 15.5 (5-19); Aspartate Amino Transferase 19 U/L (0-40); Blood Urea Nitrogen 24 mg/dL (8-23); Calcium 9.3 mg/dL (8.5-10.5); Carbon Dioxide 29 mmol/L (22-29); Chloride 98 mmol/L (98-107); Osmolality Calculated 286 mOsm/kg (285-295); Potassium 4.5 mmol/L (3.5-5.1); Sodium 138 mmol/L (136-145); Total Bilirubin 0.5 mg/dL (0.15-1.2); Total Protein 7.1 g/dL (6.6-8.7)
[2024-04-29 10:52] LABS: Bilirubin Urine Negative (Negative); Blood Urine 3+ (Negative); Glucose Urine UA 2+ (Normal); Ketones Urine Negative (Negative); Leukocyte Esterase Urine Negative (Negative); Nitrate Urine Negative (Negative); Protein Urine Negative (Negative); Specific Gravity, Urine 1.012 (1.005-1.030); Urine Appearance Clear (CLEAR); Urobilinogen Urine 0.2 mg/dL (Negative)
[2024-04-29 10:55] LABS: Bacteria Urine None Seen /hpf; Hyaline Casts Urine 0-4 /lpf; RBC Urine >100 /hpf (0-2); Squamous Epithelial Cell Urine 0-5 /hpf (0-5); WBC Urine 0-5 /hpf (0-5)
[2024-04-29 10:59] LABS: Creatinine Clr Calc Pharmacy 47.6937
[2024-04-29 11:00] LABS: Glucose 26 mg/dL (65-115)
[2024-04-29 11:02] LABS: Add Urine Culture? Yes; Urine Color Red (Yellow)
[2024-04-29 11:12] LABS: Glucose Point of Care 67 mg/dL (70-110)
--- NOTE | 2024-04-29 11:21 | PC.PHAR ---
Addendum entered by Keila Morales 04/29/24 11:27: Pt has new rx for Metoprolol Succ. ER 25mg daily-[facility] Original Note: [facility]. Pt has taken am meds except no insulin yet today
[2024-04-29 11:41] LABS: Glucose Point of Care 58 mg/dL (70-110)
[2024-04-29] MEDS: dextrose 10% 1,000 ML 75 ML IV (11:50)
[2024-04-29 12:07] LABS: Glucose Point of Care 65 mg/dL (70-110)
[2024-04-29 12:41] LABS: Glucose Point of Care 63 mg/dL (70-110)
[2024-04-29 13:14] LABS: Glucose Point of Care 104 mg/dL (70-110)
--- NOTE | 2024-04-29 13:25 | CTR_ITS ---
PROCEDURE INFORMATION: Exam: CT Abdomen And Pelvis Without Contrast Exam date and time: 04/29/2024 2:07 PM Age: 78 years old Clinical indication: Other: Hematuria TECHNIQUE: Imaging protocol: Computed tomography of the abdomen and pelvis without contrast. Radiation optimization: All CT scans at this facility use at least one of these dose optimization techniques: automated exposure control; mA and/or kV adjustment per patient size (includes targeted exams where dose is matched to clinical indication); or iterative reconstruction. COMPARISON: CT abdomen pelvis wo con [id number] 02/18/2024 7:41 PM RADIATION DOSE METRICS: Total DLP (mGy-cm): 900.09 FINDINGS: Lungs: Lung bases are clear. No pleural effusion. Liver: Normal. No mass. Gallbladder and biliary ducts: Multiple gallstones are noted in the gallbladder but the gallbladder does not appear inflamed and demonstrates normal wall thickness. Pancreas: Normal. No ductal dilation. Spleen: Normal. No splenomegaly. Adrenal glands: Normal. No mass. Kidneys and ureters: Two cysts involve the right kidney with the larger measuring 3.9 cm in diameter. Stomach and bowel: Multiple diverticula involve the sigmoid colon. There is no sign of diverticulitis. Appendix: No evidence of appendicitis. Intraperitoneal space: Unremarkable. No free air. No significant fluid collection. Vasculature: Unremarkable. No abdominal aortic aneurysm. Lymph nodes: Unremarkable. No enlarged lymph nodes. Urinary bladder: There is a collection of intraluminal thrombus involving the bladder. Reproductive: The prostate gland is abnormally enlarged. Bones/joints: Unremarkable. No acute fracture. Soft tissues: Unremarkable. CT/CT kidney stone [id number] IMPRESSION: 1. Intraluminal thrombus involving the bladder. This is of uncertain etiology but could be related to prostate enlargement 2. A benign renal cyst or cysts have been detected. No further follow-up imaging is required. 3. Sigmoid diverticulosis 4. Cholelithiasis COMMENTS: Consistent with the [employer] [employer]'s Incidental Findings Committee white paper (J Am Trent Radiol 2018): Any incidental renal lesion less than 1 cm or classified as too small to characterize, or any incidental cystic renal lesion characterized as simple-appearing, is likely benign. No follow-up imaging is recommended for these lesions per consensus recommendations based on imaging criteria.
--- NOTE | 2024-04-29 13:30 | PC.NURSE ---
Chas in Pharmacy okayed to Y site octreotide and D10.
--- NOTE | 2024-04-29 13:33 | P.HP_ITS ---
Providers/Chief Complaint 2 Primary Care Provider: Radha Blevins MD Chief Complaint: AMS History of Present Illness Ambrose Villa is a 78 year old male history of CAD on aspirin and Plavix, COPD, CKD, history of type 2 diabetes mellitus, on Lantus 50 units, on Jardiance, on pioglitazone, sitagliptin, glipizide who presents [facility] due to feeling unwell, hypoglycemia. Currently patient is alert oriented x 3, following all commands, blood sugars 104, but patient has required several boluses of D10, currently on a D10 drip, patient presented to [facility] for concerns of altered mental status, on presentation blood sugars were in the 40s, this morning he had his dog put down, did have a poor appetite, did not eat much this morning, denies taking more medication than prescribed, denies accidental or intentional overdose, also does report hematuria, no headache, blurry vision, no nausea, vomiting, abdominal pain, no flank pain, no fevers, no chills, no cough, no chest pain Review of Systems 2 Const: Reports: fatigue and malaise Card: Denies: chest pain Resp: Denies: dyspnea GI: Denies: abdominal pain : Reports: dysuria; Denies: flank pain or difficulty urinating Musc: Denies: back pain Neuro: Denies: headache(s) or weakness in extremities Medications/Allergies Home Medications Medication Instructions Recorded Confirmed Last Taken Type insulin glargine 100 unit/mL 50 unit SUBCUT QAM 07/19/19 04/29/24 04/28/24 History subcutaneous solution (Lantus U-100 Insulin) clopidogrel 75 mg tablet (Plavix) 75 mg PO DAILY 08/02/21 04/29/24 04/29/24 History oxygen-air delivery systems 08/02/21 04/29/24 Unknown History omega 2-lfl-ozq-fish oil 300 1 cap PO BID 03/05/22 04/29/24 04/29/24 History mg-1,000 mg capsule (Fish Oil) diclofenac sodium 1 % topical gel 2 g topical TID PRN joint pain 09/12/23 04/29/24 Unknown History hinged knee brace, bilateral #1 ea 10/01/23 04/29/24 Unknown Rx aspirin 81 mg chewable tablet 81 mg PO DAILY 02/18/24 04/29/24 04/29/24 History atorvastatin 80 mg tablet 80 mg PO QPM 02/18/24 04/29/24 04/28/24 History empagliflozin 25 mg tablet 25 mg PO DAILY 02/18/24 04/29/24 04/29/24 History (Jardiance) folic acid 1 mg tablet 1 mg PO DAILY 02/18/24 04/29/24 04/29/24 History glipizide 10 mg tablet 10 mg PO TID 02/18/24 04/29/24 04/28/24 History metoprolol succinate 25 mg 25 mg PO DAILY #30 tabs 02/19/24 04/29/24 Unknown Rx tablet,extended release 24 hr dextromethorphan-guaifenesin 10 10 ml PO Q4H PRN cough/congestion 04/29/24 04/29/24 Unknown History mg-100 mg/5 mL oral syrup furosemide 20 mg tablet 10 mg PO BID PRN Edema 04/29/24 04/29/24 Unknown History pioglitazone 45 mg tablet 45 mg PO DAILY 04/29/24 04/29/24 04/29/24 History sitagliptin 50 mg tablet 50 mg PO DAILY 04/29/24 04/29/24 04/29/24 History Allergies Allergy/AdvReac Type Severity Reaction Status Date / Time Penicillins Allergy ALGY-Difficulty Verified 04/29/24 09:56 Breathing PFSH Acute 2 PFSH: Medical History COPD with hypoxia Chronic kidney disease Renal calculi Moderate aortic stenosis by prior echocardiogram Coronary artery disease CABG x 4 in 2011, history of sternal nonunion. 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 Complicating treatment of stones Uric acid urolithiasis Hx of chest wall injury COPD (chronic obstructive pulmonary disease) Chronically on 3 L of oxygen Congestive heart failure Moderate aortic stenosis last echocardiogram Diabetes type 2, uncontrolled Sleep apnea On CPAP On home O2 History of kidney stones High cholesterol Neuropathy Surgical History Status post placement of ureteral stent History of quadruple bypass Hx of lithotripsy Family History Mother , at age 76 COPD (chronic obstructive pulmonary disease) Father , at age 68-aortic aneurysm No problems noted. Social History Smoking and tobacco/nicotine status: former use of tobacco/nicotine Alcohol intake: former Substance/Drug Use: never Marital status: Current occupational status: retired Current gender identity: Male Vitals/I&O/Wt Last Vital Signs Temp 97.7 F 04/29/24 09:51 Pulse 64 04/29/24 10:26 Resp 18 04/29/24 10:26 BP 109/56 04/29/24 10:26 Pulse Ox 93 04/29/24 10:26 O2 Del Method Nasal Cannula 04/29/24 10:26 O2 Flow Rate 3 04/29/24 10:26 04/28/24 04/29/24 04/29/24 22:59 06:59 14:59 Intake Total 500 / 500 Balance 500 / 500 Weight last 48 hrs Weight 102.058 kg Physical Exam 2 Const: COMMON NORMALS: no acute distress and patient oriented x3 HENMT: COMMON NORMALS: normocephalic HEAD & SCALP: normocephalic Eye: COMMON NORMALS: Equal, round and reactive pupils present Resp: COMMON NORMALS: normal respiratory effort, No retractions, No use of accessory muscles and clear to auscultation bilaterally AUSCULTATION: clear to auscultation bilaterally Cardio: COMMON NORMALS: no JVD, regular rate, regular rhythm, S1 normal heart sound present and S2 normal heart sound present RATE: regular rate RHYTHM: regular rhythm HEART SOUNDS: S1 normal heart sound present and S2 normal heart sound present GI: COMMON NORMALS: Normal to inspection, nondistended, normoactive bowel sounds present, Soft to palpation and non-tender Extremity: COMMON NORMALS: no calf tenderness and no pedal edema Neuro: COMMON NORMALS: patient oriented x3, CN's II-XII intact bilaterally and moves all extremities Psych: COMMON NORMALS: mental status grossly normal Data 04/29/24 10:01 04/29/24 10:01 A&P Assessment and plan (1) Hypoglycemia: (2) Adverse effect of glipizide: (3) Acute kidney injury: (4) Altered mental status: (5) Hematuria: Plan Altered mental status, currently alert oriented x 3, following all commands ? Likely secondary to refractory hypoglycemia, status post D10 boluses, findings concerning for glipizide toxicity, with LEANNA ? Patient did not take his Lantus this morning ? Did take Jardiance ? Is on sitagliptin, pioglitazone ? Plan ? Continue D10 drip ? Start octreotide drip ? Every hour blood sugars ? As patient continues to have refractory hypoglycemia, feeling unwell we will continue to watch in ICU Acute kidney injury with CKD ? IV fluids Gross hematuria # CT renal protocol # History of kidney stones with ureteral stents in the past Attestations 2 Medical Necessity Statement*: Patient requires hospitalization, inpatient, outpatient with observation, for refractory hypoglycemia concerns for glipizide toxicity, altered mental status, LEANNA, hematuria Diagnoses Hypoglycemia E16.2 Adverse effect of glipizide T38.3X5A Acute kidney injury N17.9 Altered mental status R41.82 Hematuria R31.9
[2024-04-29] MEDS: octreotide 500 MCG in sodium chloride 0.9% (100 ml) 100 ML 10.1 MCG IV (13:45)
[2024-04-29 14:06] LABS: Thyroid Stimulating Hormone 1.06 uIU/mL (0.27-4.20)
[2024-04-29 14:22] LABS: Glucose Point of Care 55 mg/dL (70-110)
[2024-04-29 14:27] LABS: Glucose Point of Care 95 mg/dL (70-110)
[2024-04-29 14:59] LABS: Estmated Average Glucose 117; Hemoglobin A1C 5.7 % (4.0-6.0)
[2024-04-29 15:01] LABS: Glucose Point of Care 70 mg/dL (70-110)
[2024-04-29 15:10] LABS: Procalcitonin 0.09 ng/mL (0-0.5)
--- NOTE | 2024-04-29 15:28 | PC.NURSE ---
Arrived from ED, AO x4 transferred self to bed
[2024-04-29 16:02] LABS: Glucose Point of Care 101 mg/dL (70-110)
[2024-04-29] MEDS: pantoprazole 40 mg SDV IVP (16:04)
[2024-04-29] MEDS: enoxaparin 40 mg/0.4 mL Syringe SUBCUT (16:04)
[2024-04-29] MEDS: atorvastatin 40 mg Tablet PO (16:39)
[2024-04-29 17:49] LABS: Glucose Point of Care 230 mg/dL (70-110)
--- NOTE | 2024-04-29 18:51 | PC.NURSE ---
blood sugar 220, Dr. Addison ordered to stop D10 and octreotide
[2024-04-29 19:08] LABS: Glucose Point of Care 351 mg/dL (70-110)
[2024-04-29 20:08] LABS: Glucose Point of Care 345 mg/dL (70-110)
[2024-04-29 21:13] LABS: Glucose Point of Care 328 mg/dL (70-110)
[2024-04-30] VITALS (14 sets, daily range): BP systolic 79–133; BP diastolic 49–72; PULSE 60–73; RESP 12–17; TEMP 36.3–36.9; O2SAT 94–98
[2024-04-30 00:19] LABS: Glucose Point of Care 307 mg/dL (70-110)
[2024-04-30 04:40] LABS: Glucose Point of Care 227 mg/dL (70-110)
[2024-04-30 05:05] LABS: Basophils # 0.1 10^3/uL (0.0-0.1); Basophils % 0.7 %; Eosinophils # 0.3 10^3/uL (0.0-0.8); Eosinophils % 3.2 %; Hematocrit 49.2 % (37-53); Lymphocytes # 2.3 10^3/uL (0.8-4.8); Lymphocytes % 26.7 %; Mean Corpuscular HGB Conc 31.1 g/dL (30-55); Mean Corpuscular Volume 99.8 fl (82-101); Mean Platelet Volume 11.2 fL (7.4-10.4); Monocytes # 0.5 10^3/uL (0.2-0.9); Monocytes % 5.9 %; Neutrophils # 5.36 10^3/uL (1.8-7.7); Neutrophils % 63.1 %; Nucleated Red Blood Cells % 0 %; Platelet Count 185 10^3/cmm (157-399); Red Blood Count 4.93 10^6/uL (3.85-5.65); Red Cell Distribution Width 14.5 % (12.1-15.1); White Blood Count 8.48 10^3/uL (3.29-11.43)
[2024-04-30 05:32] LABS: Alanine Aminotransferase 12 U/L (0-41); Albumin Level 3.7 g/dL (3.5-5.2); Alkaline Phosphatase 74 U/L (40-130); Anion Gap 14.1 (5-19); Aspartate Amino Transferase 17 U/L (0-40); Blood Urea Nitrogen 22 mg/dL (8-23); Calcium 9.3 mg/dL (8.5-10.5); Carbon Dioxide 30 mmol/L (22-29); Chloride 96 mmol/L (98-107); Creatinine Clr Calc Pharmacy 42.5571; Globulin 2.6 g/dL (1.3-4.6); Glucose 230 mg/dL (65-115); Osmolality Calculated 291 mOsm/kg (285-295); Potassium 5.1 mmol/L (3.5-5.1); Sodium 135 mmol/L (136-145); Total Bilirubin 0.6 mg/dL (0.15-1.2); Total Protein 6.3 g/dL (6.6-8.7)
[2024-04-30] MEDS: metoprolol succinate ER (24 HR) 25 mg Tablet PO (09:15)
[2024-04-30] MEDS: insulin glargine 100 units/1 mL 10 UNIT SUBCUT (09:15)
[2024-04-30] MEDS: folic acid 1 mg Tablet PO (09:15)
[2024-04-30] MEDS: clopidogrel 75 mg Tablet PO (09:15)
[2024-04-30] MEDS: aspirin 81 mg Chew Tablet PO (09:15)
[2024-04-30 09:28] LABS: Glucose Point of Care 174 mg/dL (70-110)
--- NOTE | 2024-04-30 12:05 | P.DS_ITS ---
Discharge Providers Date of Admission: 04/29/24 14:59 Date of Discharge: April 30, 2024 Attending Provider at Admission: Alfredo Rivera MD Attending Provider at Discharge: Alfredo Rivera MD Primary Care Provider: Radha Blevins MD Diagnoses at Discharge Discharge Diagnosis (1) Hypoglycemia: Status: Acute (2) Adverse effect of glipizide: Status: Acute (3) Acute kidney injury: Status: Acute (4) Altered mental status: Status: Acute (5) Hematuria: Status: Inactive Reason for Visit Reason for Visit: [facility] Hospital Course Hospital Course Ambrose Villa is a 78 year old male history of CAD on aspirin and Plavix, COPD, CKD, history of type 2 diabetes mellitus, on Lantus 50 units, on Jardiance, on pioglitazone, sitagliptin, glipizide who presents [facility] due to feeling unwell, hypoglycemia. Currently patient is alert oriented x 3, following all commands, blood sugars 104, but patient has required several boluses of D10, currently on a D10 drip, patient presented to [facility] for concerns of altered mental status, on presentation blood sugars were in the 40s, this morning he had his dog put down, did have a poor appetite, did not eat much this morning, denies taking more medication than prescribed, denies accidental or intentional overdose, also does report hematuria, no headache, blurry vision, no nausea, vomiting, abdominal pain, no flank pain, no fevers, no chills, no cough, no chest pain Patient was admitted to [facility] hyperglycemia likely the effect of multiple oral hypoglycemic, glipizide toxicity, monitor in ICU on a D10 drip with octreotide drip, overall hypoglycemia resolved. He is transition to Lantus 10 units subcu daily with a NovoLog sliding scale with instructions as below. I had a detailed discussion with him that glipizide should be permanently discontinued due to high risk of hypoglycemia with his kidney function. I have also stopped his pioglitazone. His primary care provider can consider adding on sitagliptin and his creatinine is 1.7. Monitor for hypoglycemia, discussed hypoglycemia protocol he voiced understanding, all questions answered For his hematuria -CT scan CT/CT kidney stone 65933 IMPRESSION: 1. Intraluminal thrombus involving the bladder. This is of uncertain etiology but could be related to prostate enlargement 2. A benign renal cyst or cysts have been detected. No further follow-up imaging is required. -Patient reports hematuria for the last few weeks, he is primary care provider is also aware of his hematuria -Likely secondary to aspirin, Plavix and intramural thrombus in the bladder -Attempts were made for CBI as inpatient however Flores catheter could not be passed -Patient was monitored as inpatient hemoglobin remained stable, hemodynamics remained stable, hematuria is intermittent -For now I have had him hold his Plavix for at least until Friday until he sees his primary care provider -Discussed risk and benefits of holding Plavix therapy he has never had a stent placed he had a CABG many years ago, discussed risk and benefits, he voiced understanding, all questions answered, agreed to proceed -He will need to follow-up with urology as outpatient patient declines to see Dr. Nielson in [place] -Thus he will have to follow-up with urology in [place] -If he does develop lightheadedness or dizziness or anemia please come back to the hospital - Lantus decreased to 10 units subcut daily -Please monitor your blood sugars closely -Monitor your blood sugars 3 times daily as after meals -Please record your blood sugars, and a blood sugar log -For your NovoLog -Please inject blood sugar after meals based on sliding scale provided -Do not inject insulin if you do not eat as hypoglycemia kills -This is a NovoLog sliding scale -Insulin sliding ?fingerstick? Insulin ?141-180?0 units/sq 181-220?2 units/sq ?221-260?4 units/sq ?261-300 6 units/sq ?301-350?8 units/sq ?351-400 10 units/sq ?401-450?12 units/sq >450? 14units/sq -If your blood sugar is greater than 500 go to the emergency room -If your blood sugar is less than 60 or at anytime you feel lightheaded or dizzy or diaphoretic or have chest palpitations check your blood sugar, and eat a hard candy or drink orange juice and go immediately to the emergency room -Remember hypoglycemia kills, so if his blood sugar is less than 60 we have to increase it by taking in a sugary meal such as a hard candy or orange juice and go to the emergency room -If you have any questions please call us where here to help -kendra Jones -Stop pioglitazone -do not use glipizide - I would consider starting sitagliptin in the near future based on clinical progress and after discussion with primary care and recheck of her kidney function -Creatinine discharge 1.7 -For your hematuria, recheck hemoglobin in 1 week, please hold Plavix until at least Friday -For follow-up with urology for consideration of cystoscopy -Follow up with [place] physician about continuos glucose monitor Physical Exam Const: COMMON NORMALS: no acute distress and patient oriented x3 Resp: COMMON NORMALS: normal respiratory effort, No retractions, No use of accessory muscles and clear to auscultation bilaterally AUSCULTATION: clear to auscultation bilaterally Cardio: COMMON NORMALS: regular rate, regular rhythm, S1 normal heart sound present and S2 normal heart sound present RATE: regular rate RHYTHM: regular rhythm HEART SOUNDS: S1 normal heart sound present and S2 normal heart sound present GI: COMMON NORMALS: Normal to inspection, nondistended, normoactive bowel sounds present and non-tender Extremity: COMMON NORMALS: no pedal edema Neuro: COMMON NORMALS: patient oriented x3 Psych: COMMON NORMALS: mental status grossly normal Discharge Data Studies Completed and Pending Completed Studies During Hospitalization Category Date Time Status CT abdomen renal stone [CT kidney stone [id number]] Stat Cat Scan 04/29/24 13:25 Completed XR chest 1V portable [id number] Stat Exams 04/29/24 10:01 Completed Pending at discharge Category Date Time Status Complete Blood Count w/Auto AM LABS Lab 05/01/24 04:00 Ordered Complete Blood Count w/Auto AM LABS Lab 05/02/24 04:00 Ordered Comprehensive Metabolic Panel AM LABS Lab 05/01/24 04:00 Ordered Comprehensive Metabolic Panel AM LABS Lab 05/02/24 04:00 Ordered Urine Culture Stat Lab 04/29/24 10:17 Results Radiology Impressions Chest X-Ray 04/29/24 10:01 IMPRESSION: Stable abnormal chest as above without acute abnormality. Abdomen/Pelvis CT 04/29/24 13:25 IMPRESSION: 1. Intraluminal thrombus involving the bladder. This is of uncertain etiology but could be related to prostate enlargement 2. A benign renal cyst or cysts have been detected. No further follow-up imaging is required. 3. Sigmoid diverticulosis 4. Cholelithiasis COMMENTS: Consistent with the [employer]'s Incidental Findings Committee white paper (J Am Trent Radiol 2018): Any incidental renal lesion less than 1 cm or classified as too small to characterize, or any incidental cystic renal lesion characterized as simple-appearing, is likely benign. No follow-up imaging is recommended for these lesions per consensus recommendations based on imaging criteria. Laboratory Results WBC 8.48 10^3/uL (3.29-11.43) 04/30/24 04:34 RBC 4.93 10^6/uL (3.85-5.65) 04/30/24 04:34 Hgb 15.30 g/dL (11.27-16.99) 04/30/24 04:34 Hct 49.2 % (37-53) 04/30/24 04:34 MCV 99.8 fl (82-101) 04/30/24 04:34 MCH 31.0 pg (27-33) 04/30/24 04:34 MCHC 31.1 g/dL (30-55) 04/30/24 04:34 RDW 14.5 % (12.1-15.1) 04/30/24 04:34 Plt Count 185 10^3/cmm (157-399) 04/30/24 04:34 MPV 11.2 fL (7.4-10.4) H 04/30/24 04:34 Neut % (Auto) 63.1 % 04/30/24 04:34 Lymph % (Auto) 26.7 % 04/30/24 04:34 [place] % (Auto) 5.9 % 04/30/24 04:34 Eos % (Auto) 3.2 % 04/30/24 04:34 Baso % (Auto) 0.7 % 04/30/24 04:34 Neut # (Auto) 5.36 10^3/uL (1.8-7.7) 04/30/24 04:34 Lymph # (Auto) 2.3 10^3/uL (0.8-4.8) 04/30/24 04:34 [place] # (Auto) 0.5 10^3/uL (0.2-0.9) 04/30/24 04:34 Eos # (Auto) 0.3 10^3/uL (0.0-0.8) 04/30/24 04:34 Baso # (Auto) 0.1 10^3/uL (0.0-0.1) 04/30/24 04:34 Nucleated RBC % (auto) 0 % 04/30/24 04:34 Nucleated RBCs # 0.0 /100WBC 04/30/24 04:34 Sodium 135 mmol/L (136-145) L 04/30/24 04:34 Potassium 5.1 mmol/L (3.5-5.1) 04/30/24 04:34 Chloride 96 mmol/L (98-107) L 04/30/24 04:34 Carbon Dioxide 30 mmol/L (22-29) H 04/30/24 04:34 Anion Gap 14.1 (5-19) 04/30/24 04:34 BUN 22 mg/dL (8-23) 04/30/24 04:34 Creatinine 1.7 mg/dL (0.7-1.2) H 04/30/24 04:34 GFR Calculation Not Reportable 04/30/24 04:34 Glucose 230 mg/dL (65-115) H 04/30/24 04:34 POC Glucose 174 mg/dL (70-110) H 04/30/24 07:23 Estimat Average Glucose 117 04/29/24 10:01 Hemoglobin A1c 5.7 % (4.0-6.0) 04/29/24 10:01 Calculated Osmolality 291 mOsm/kg (285-295) 04/30/24 04:34 Lactic Acid 0.9 mmol/L (0.5-2.2) 04/29/24 10:01 Calcium 9.3 mg/dL (8.5-10.5) 04/30/24 04:34 Total Bilirubin 0.6 mg/dL (0.15-1.2) 04/30/24 04:34 AST 17 U/L (0-40) 04/30/24 04:34 ALT 12 U/L (0-41) 04/30/24 04:34 Alkaline Phosphatase 74 U/L (40-130) 04/30/24 04:34 C-Reactive Protein 3.0 mg/L (0.0-4.9) 04/29/24 10:01 Total Protein 6.3 g/dL (6.6-8.7) L 04/30/24 04:34 Albumin 3.7 g/dL (3.5-5.2) 04/30/24 04:34 Globulin 2.6 g/dL (1.3-4.6) 04/30/24 04:34 Procalcitonin 0.09 ng/mL (0-0.5) 04/29/24 10:01 TSH 1.06 uIU/mL (0.27-4.20) 04/29/24 10:01 Urine Color Red (Yellow) A 04/29/24 10:17 Urine Appearance Clear (CLEAR) 04/29/24 10:17 Urine pH 6.0 (5-7) 04/29/24 10:17 Ur Specific [place] 1.012 (1.005-1.030) 04/29/24 10:17 Urine Protein Negative (Negative) 04/29/24 10:17 Urine Glucose (UA) 2+ (Normal) H 04/29/24 10:17 Urine Ketones Negative (Negative) 04/29/24 10:17 Urine Blood 3+ (Negative) A 04/29/24 10:17 Urine Nitrate Negative (Negative) 04/29/24 10:17 Urine Bilirubin Negative (Negative) 04/29/24 10:17 Urine Urobilinogen 0.2 mg/dL (Negative) 04/29/24 10:17 Ur Leukocyte Esterase Negative (Negative) 04/29/24 10:17 Urine RBC >100 /hpf (0-2) H 04/29/24 10:17 Urine WBC 0-5 /hpf (0-5) 04/29/24 10:17 Ur Squamous Epith Cells 0-5 /hpf (0-5) 04/29/24 10:17 Amorphous Sediment Not Reportable 04/29/24 10:17 Urine Bacteria None seen /hpf (NONE) 04/29/24 10:17 Hyaline Casts 0-4 /lpf H 04/29/24 10:17 Vitals Last Vital Signs Temp 97.4 F L 04/30/24 08:00 Pulse 66 04/30/24 09:55 Resp 16 04/30/24 09:55 BP 110/64 04/30/24 04:00 Pulse Ox 94 04/30/24 09:55 O2 Del Method Nasal Cannula 04/30/24 09:55 O2 Flow Rate 2 04/30/24 09:55 Discharge Plan Discharge Patient Disposition: Home Condition: Stable Prescriptions: New (DME) Dexcom G6 Manager Background Misc See Rx Instructions .Route Qty: 1 0RF Rx Instructions: As directed (DME) Dexcom G6 Sensor Device See Rx Instructions .Route Qty: 3 0RF Rx Instructions: As directed (DME) Dexcom G6 Transmitter Device See Rx Instructions .Route Qty: 1 0RF Rx Instructions: As directed insulin aspart U-100 [Novolog FlexPen U-100 Insulin] 100 unit/mL (3 mL) insulin pen See Rx Instructions .ROUTE .COMPLEX MDD 20 Qty: 15 0RF Rx Instructions: Inject, subcut, 3 times daily, after meals, based on sliding scale provided Continued omega 2-izd-efe-fish oil [Fish Oil] 300-1,000 mg capsule 1 cap PO BID atorvastatin 80 mg Tablet 80 mg PO QPM aspirin 81 mg Tablet,Chewable 81 mg PO DAILY folic acid 1 mg Tablet 1 mg PO DAILY Jardiance 25 mg Tablet 25 mg PO DAILY metoprolol succinate 25 mg tablet extended release 24 hr 25 mg PO DAILY Qty: 30 0RF dextromethorphan-guaifenesin 10-100 mg/5 mL Syrup 10 ml PO Q4H PRN (Reason: cough/congestion) Changed insulin glargine [Lantus U-100 Insulin] 100 unit/mL solution 10 unit SUBCUT QAM Qty: 10 0RF Held clopidogrel [Plavix] 75 mg tablet 75 mg PO DAILY Hold Instructions: Resume on 05/03/24. furosemide 20 mg tablet 10 mg PO BID PRN (Reason: Edema) Hold Instructions: Resume on 05/03/24. Discontinued diclofenac sodium 1 % Gel 2 g TOPICAL TID PRN (Reason: joint pain) Rx Instructions: apply to single elbow, wrist or hand; for hand includes palm/fingers/back of hand glipizide 10 mg Tablet 10 mg PO TID pioglitazone 45 mg Tablet 45 mg PO DAILY sitagliptin 50 mg Tablet 50 mg PO DAILY No Action (DME) oxygen-air delivery systems Device See Rx Instructions .Route Rx Instructions: As directed (DME) hinged knee brace, bilateral See Rx Instructions .Route .MEDSUPPLY Qty: 1 0RF Rx Instructions: As directed Discharge Orders: Discharge Order (Routine); Ordered 04/30/24 Ordered By: Alfredo Rivera Referrals: Radha Blevins MD [Primary Care Provider] - Braxton Booker MD [Referring] - 1 week (This clinic closes at 12 pm on Fridays we was not able to arrange your follow up care. Please call them on friday to arrange your follow up care a packet of your information has been sent.) Discharge Diet: Cardiac Discharge Activity: Resume usual activity Patient Instructions: Altered Mental Status (ED), Opioid Safety Activity Restrictions/Additional Instructions: - Lantus decreased to 10 units subcut daily -Please monitor your blood sugars closely -Monitor your blood sugars 3 times daily as after meals -Please record your blood sugars, and a blood sugar log -For your NovoLog -Please inject blood sugar after meals based on sliding scale provided -Do not inject insulin if you do not eat as hypoglycemia kills -This is a NovoLog sliding scale -Insulin sliding ?fingerstick? Insulin ?141-180?0 units/sq 181-220?2 units/sq ?221-260?4 units/sq ?261-300 6 units/sq ?301-350?8 units/sq ?351-400 10 units/sq ?401-450?12 units/sq >450? 14units/sq -If your blood sugar is greater than 500 go to the emergency room -If your blood sugar is less than 60 or at anytime you feel lightheaded or dizzy or diaphoretic or have chest palpitations check your blood sugar, and eat a hard candy or drink orange juice and go immediately to the emergency room -Remember hypoglycemia kills, so if his blood sugar is less than 60 we have to increase it by taking in a sugary meal such as a hard candy or orange juice and go to the emergency room -If you have any questions please call us where here to help -kendra Jones -Stop pioglitazone -do not use glipizide - I would consider starting sitagliptin in the near future based on clinical progress and after discussion with primary care and recheck of her kidney function -Creatinine discharge 1.7 -For your hematuria, recheck hemoglobin in 1 week, please hold Plavix until at least Friday -For follow-up with urology for consideration of cystoscopy -Follow up with [place] physician about continuos glucose monitor Discharge Attestations Time Spent in Discharge Care*: greater than 30 min Status at Discharge: Cognitive status at discharge: cognitively intact , Behavioral status at discharge: cooperative , Quality Metrics Clinical Quality Measures [ No reported AMI, CVA or VTE this stay] Coding Level of Care Code 22925 Total time (in minutes) for Discharge: 45 Diagnoses Hypoglycemia E16.2 Adverse effect of glipizide T38.3X5A Acute kidney injury N17.9 Altered mental status R41.82 Hematuria R31.9
--- NOTE | 2024-04-30 12:28 | PC.NURSE ---
Instruction received to provide CBI until clear upon entering the room patient educated about procedure and reasons for the procedure patient verbalized understanding patient was hesitant to attempt placement of the Flores due past experiences and he reports a deviation in the urethra. This nurse explained patients rights and the ability to refuse any procedures patient decided to to let us attempt the placement of the Flores. Flores placement was unsuccessful by 2 RN's procedure aborted and provider notified
--- NOTE | 2024-04-30 12:46 | PC.NURSE ---
Attempted to place foly for CBI, unable to place catheter do to difficult insertion, Dr. Addison advised to monitor for a couple hours prior to dc home
[2024-04-30 13:11] LABS: Glucose Point of Care 142 mg/dL (70-110)
--- NOTE | 2024-04-30 15:13 | PC.NURSE ---
unable to make urology appointment due to fax machine not working and [facility] needed a fax of patient info before making appointment, patient did not want to see urology in [place], message sent to [place] in [place]
--- NOTE | 2024-04-30 15:18 | PC.NURSE ---
All D/C info educated to patient, iv D/C, to be transported home by friend
== END 2024-04-30 15:42 | disposition home or self-care (01) ==
LOC: ER 14:48 → ICU 15:30
PROVIDERS: Admitting Provider Family Medicine; Emergency Provider Emergency Medicine; PCP Family Medicine; Visit Provider Family Medicine
DX: R41.82 Altered mental status, unspecified (principal); R31.9 Hematuria, unspecified; N17.9 Acute kidney failure, unspecified; T38.3X5A Adverse effect of insulin and oral hypoglycemic [antidiabetic] drugs, initial encounter; N18.9 Chronic kidney disease, unspecified; E11.22 Type 2 diabetes mellitus with diabetic chronic kidney disease; E11.649 Type 2 diabetes mellitus with hypoglycemia without coma; I25.10 Atherosclerotic heart disease of native coronary artery without angina pectoris; Z79.82 Long term (current) use of aspirin; Z79.02 Long term (current) use of antithrombotics/antiplatelets; J44.9 Chronic obstructive pulmonary disease, unspecified; Z79.4 Long term (current) use of insulin; Z99.81 Dependence on supplemental oxygen; Z95.1 Presence of aortocoronary bypass graft; G47.30 Sleep apnea, unspecified; E11.40 Type 2 diabetes mellitus with diabetic neuropathy, unspecified; E86.0 Dehydration; G93.40 Encephalopathy, unspecified
CPT/HCPCS: 36415; 36416; 71045; 74176; 80053; 81001; 82962; 83036; 83605; 84145; 84443; 85025; 86140; 87086; 94664; 96365; 96372; 99285; G0378; J1650; J1815; J2354; J2470; J7799

== ENCOUNTER → 2024-07-16 10:04 | Outpatient (BNVA) | payer OTHER, SELFPAY | PROVIDERS: PCP Family Medicine; Visit Provider Nurse Practitioner | DX: M17.0 Bilateral primary osteoarthritis of knee; Z71.89 Other specified counseling | CPT/HCPCS: 20610; 73560; 73565; 99214; J1100; J2795; J3301 ==

== ENCOUNTER 2024-10-06 11:22 | Inpatient (IN) | payer OTHER, SELFPAY ==
[2024-10-06] VITALS (38 sets, daily range): BP systolic 92–137; BP diastolic 50–79; PULSE 57–89; RESP 10–24; TEMP 33.6–36.7; O2SAT 91–98; BMI 39.6
--- NOTE | 2024-10-06 11:27 | ECG_ITS ---
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 Measurements Intervals [place] Rate: 70 P: 145 [place]: 173 QRS: -33 QRSD: 138 T: 147 QT: 480 QTc: 521 Interpretive Statements SINUS RHYTHM WITH OCCASIONAL VENTRICULAR PREMATURE COMPLEXES WITH OCCASIONAL SUPRAVENTRICULAR PREMATURE COMPLEXES INTRAVENTRICULAR CONDUCTION DELAY [130+ ms QRS DURATION] Compared to ECG 03/01/2024 18:27:17 Ventricular premature complex(es) now present Intraventricular conduction delay now present Left anterior fascicular block no longer present Electronically Signed On 10-06-2024 21:25:07 CDT by Hansa Humphrey M.D. [id number]
[2024-10-06] MEDS: dextrose 10% 250 ML 1000 ML IV ×2 (11:47→12:31)
--- NOTE | 2024-10-06 11:51 | W.ED.RECABL ---
HPI - Recheck/Abnormal Lab/Rx General: Chief Complaint: Recheck/Abnormal Lab/Rx Stated Complaint: Low BS Time Seen by Provider: 10/06/24 11:23 History of Present Illness: 78-year-old man with a history of diabetes, COPD, chronic kidney disease, coronary artery disease, neuropathy, hyperlipidemia, and chronic hypoxemic respiratory failure on home O2 at all times who presents emergency room by ambulance with hypoglycemia and unresponsiveness. EMS reports his blood sugar was 29. He is fairly lucid when he gets here and he tells me that he missed a meal today, however his sugar still quite low at a becomes progressively more unresponsive but then is given D10 and improves. EMS reports that the family had reported he has had flulike symptoms for the last several days. He currently has no pain complaints. No chest pain. No abdominal pain. He is not vomiting. Related Data Home Medications ?Medication ?Instructions ?Recorded ?Confirmed clopidogrel 75 mg tablet (Plavix) 75 mg PO DAILY 08/02/21 10/06/24 Held on 04/30/24. Instructions: Resume on 05/03/24. aspirin 81 mg chewable tablet 81 mg PO DAILY 02/18/24 10/06/24 atorvastatin 80 mg tablet 80 mg PO QPM 02/18/24 10/06/24 empagliflozin 25 mg tablet 25 mg PO DAILY 02/18/24 10/06/24 (Jardiance) folic acid 1 mg tablet 1 mg PO DAILY 02/18/24 10/06/24 furosemide 20 mg tablet 10 mg PO BID PRN Edema 04/29/24 10/06/24 Held on 04/30/24. Instructions: Resume on 05/03/24. insulin glargine 100 unit/mL 11 unit SUBCUT QAM 10/06/24 10/06/24 subcutaneous solution (Lantus U-100 Insulin) pioglitazone 30 mg tablet 30 mg PO DAILY 10/06/24 10/06/24 Previous Rx's ?Medication ?Instructions ?Recorded metoprolol succinate 25 mg 25 mg PO DAILY #30 tabs 02/19/24 tablet,extended release 24 hr insulin aspart U-100 100 unit/mL See Rx Instructions .Route 04/30/24 (3 mL) subcutaneous pen (Novolog .COMPLEX #15 mL FlexPen U-100 Insulin aspart) Allergies Allergy/AdvReac Type Severity Reaction Status Date / Time Penicillins Allergy ALGY-Difficulty Verified 07/16/24 09:59 Breathing Review of Systems Narrative: Constitutional symptoms: Negative except as documented in HPI. Skin symptoms: Negative except as documented in HPI. Eye symptoms: Negative except as documented in HPI. ENMT symptoms: Negative except as documented in HPI. Respiratory symptoms: Negative except as documented in HPI. Cardiovascular symptoms: Negative except as documented in HPI. Gastrointestinal symptoms: Negative except as documented in HPI. Genitourinary symptoms: Negative except as documented in HPI. Musculoskeletal symptoms: Negative except as documented in HPI. Neurologic symptoms: Negative except as documented in HPI. Psychiatric symptoms: Negative except as documented in HPI. Endocrine symptoms: Negative except as documented in HPI. PFSH ED PFSH: Medical History COPD with hypoxia Chronic kidney disease Renal calculi Moderate aortic stenosis by prior echocardiogram Coronary artery disease CABG x 4 in 2011, history of sternal nonunion. 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 Complicating treatment of stones Uric acid urolithiasis Hx of chest wall injury COPD (chronic obstructive pulmonary disease) Chronically on 3 L of oxygen Congestive heart failure Moderate aortic stenosis last echocardiogram Diabetes type 2, uncontrolled Sleep apnea On CPAP On home O2 History of kidney stones High cholesterol Neuropathy Surgical History Status post placement of ureteral stent History of quadruple bypass Hx of lithotripsy Family History Mother , at age 76 COPD (chronic obstructive pulmonary disease) Father , at age 68-aortic aneurysm No problems noted. Social History Smoking and tobacco/nicotine status: former use of tobacco/nicotine Alcohol intake: former Substance/Drug Use: never Marital status: Current occupational status: retired Current gender identity: Male Physical Exam Narrative: EXAM NARRATIVE: General: Alert, no acute distress. Skin: Warm, dry. Head: Normocephalic, atraumatic. Neck: Supple, trachea midline. Eye: Extraocular movements are intact. Ears, nose, mouth and throat: mucosa moist. Cardiovascular: Regular, Normal peripheral perfusion. Respiratory: Lungs are clear to auscultation, respirations are non-labored, breath sounds are equal, Symmetrical chest wall expansion. Gastrointestinal: Soft, Nontender, Non distended Musculoskeletal: Normal ROM, no deformity. Neurological: Alert and oriented, No focal neurological deficit observed. Patient initially responsive and answering questions appropriately. He then becomes less responsive and repeat glucose is low so he is given D10 and improved. Psychiatric: Cooperative, appropriate mood & affect. Course Vital Signs: Vital signs: Vital Signs Temperature 92.4 F L 10/06/24 11:52 Pulse Rate 68 10/06/24 14:30 Respiratory Rate 14 10/06/24 12:45 Blood Pressure 110/56 10/06/24 14:30 Pulse Oximetry 96 10/06/24 14:30 Oxygen Delivery Me thod Nasal Cannula 10/06/24 14:30 Oxygen Flow Rate 3 10/06/24 14:30 MDM - Recheck/Abnormal Lab/Rx Medical Decision Making Medical decision making: Differential diagnosis including but not limited to and based on the above HPI, review of systems and physical exam: In this patient with hypoglycemia would have concern for infection causing low blood sugars or renal failure which can also result in low blood sugars in a diabetic. Orders placed to evaluate differential diagnosis based on the above differential, HPI and physical exam EKG: Time 11:27 AM. Rate 70. Normal sinus rhythm, nonspecific ST changes, PVCs, normal DE & QRS intervals, This was reviewed and interpreted by myself the ER physician at 11:30 AM. Chest x-ray right-sided pneumonia. This was reviewed and interpreted by myself the emergency room physician. I also reviewed the radiology report. Lab Review: Laboratory results were reviewed and interpreted by myself the emergency room physician. White count is 9.5 with a left shift of 90% I think this is significant particularly with his lactate of 2.7 and his symptoms. I believe he is septic. Potassium is 2.3. 40 mill equivalents IV and 40 mill equivalents p.o. potassium were given. Strangely his glucose was 381 on this and has been persistently low on Accu-Cheks and on a blood gas that I checked later to confirm. After the initial episode he has remained relatively asymptomatic however. Flu COVID and RSV are negative. Urine is negative for infection. I reviewed the patient's medical record. Reexamination: Patient has remained very lucid since initial extreme low blood glucose. He is also remained fairly hypothermic. He is on a [place] hugger. I spoke with family. He said he has been coughing and sick for few days now. Assessment and plan: Hypoglycemia Hypothermia Hypotension Sepsis Pneumonia Hypokalemia ?Patient has received several doses of D10 and a bolus form for hypoglycemia. A bit more stable but still a bit low. - I believe pneumonia is the source. White count is 10 but 90% left shifted. Lactate is elevated at 2.7. He has been hypotensive and hypothermic. Treating as septic. -3 L normal saline bolus. Fluid volumes based on ideal body weight. -Broad-spectrum antibiotics were administered. Zyvox and meropenem -Sepsis quality measures. -Lactic acid with a reflex was ordered. -Blood cultures were ordered. ?40 mill equivalents IV potassium and 40 mill equivalents p.o. potassium ?Bear hugger for hypothermia. -I discussed the patient with the hospitalist on-call who is admitting the patient. - Discussed findings and plan with patient. Answered any questions. - All laboratory values were reviewed and interpreted personally by myself, the ER physician - All imaging was reviewed and interpreted personally by myself, the ER physician. - Evaluation and treatment of this problem were appropriate in the emergency setting Critical care -I spent a total of >65 minutes of critical care time managing the patient, independent of any other practitioner. -The time involved in the performance of separately reportable procedures was not counted towards critical care time. Lab Data 10/06/24 12:59 10/06/24 12:59 Radiology Impressions Chest X-Ray 10/06/24 13:33 Impression: 1. Minimal patchy opacity at the left cardiophrenic angle which could represent atelectasis, pneumonia and/or edema. 2. Mild cardiomegaly. 3. Atherosclerosis. 4. Old right and left rib fractures. Laboratory Results WBC 9.50 10^3/uL (3.29-11.43) 10/06/24 12:59 Corrected WBC Cancelled 10/06/24 11:41 RBC 3.84 10^6/uL (3.85-5.65) L 10/06/24 12:59 Hgb 12.10 g/dL (11.27-16.99) 10/06/24 12:59 Hct 39.6 % (37-53) 10/06/24 12:59 MCV 103.1 fl (82-101) H 10/06/24 12:59 MCH 31.5 pg (27-33) 10/06/24 12:59 MCHC 30.6 g/dL (30-55) 10/06/24 12:59 RDW 15.5 % (12.1-15.1) H 10/06/24 12:59 Plt Count 138 10^3/cmm (157-399) L 10/06/24 12:59 MPV 11.2 fL (7.4-10.4) H 10/06/24 12:59 Gran % Cancelled 10/06/24 11:41 Neut % (Auto) 89.4 % 10/06/24 12:59 Lymph % (Auto) 4.7 % 10/06/24 12:59 Davidson % (Auto) 5.1 % 10/06/24 12:59 Eos % (Auto) 0.0 % 10/06/24 12:59 Baso % (Auto) 0.2 % 10/06/24 12:59 Neut # (Auto) 8.49 10^3/uL (1.8-7.7) H 10/06/24 12:59 Lymph # (Auto) 0.5 10^3/uL (0.8-4.8) L 10/06/24 12:59 Davidson # (Auto) 0.5 10^3/uL (0.2-0.9) 10/06/24 12:59 Eos # (Auto) 0.0 10^3/uL (0.0-0.8) 10/06/24 12:59 Baso # (Auto) 0.0 10^3/uL (0.0-0.1) 10/06/24 12:59 Absolute Gran (auto) Cancelled 10/06/24 11:41 Nucleated RBC % (auto) 0 % 10/06/24 12:59 Nucleated RBCs # 0.0 /100WBC 10/06/24 12:59 Specimen Type Arterial 10/06/24 14:50 Sample Site Femoral, left 10/06/24 14:50 ABG pH 7.36 (7.35-7.45) 10/06/24 14:50 ABG pCO2 43.0 mmHg (35-45) 10/06/24 14:50 ABG pO2 70.7 mmHg (80.0-100.0) L 10/06/24 14:50 ABG PO2/FiO2 Ratio 220 10/06/24 14:50 ABG HCO3 24.5 mmol/L (22-26) 10/06/24 14:50 ABG O2 Saturation 95.1 10/06/24 14:50 ABG Base Excess -1.1 mmol/L (-2.0-2.0) 10/06/24 14:50 Mario Test N/a 10/06/24 14:50 A-a O2 Gradient 13.6 mmHg (5-10) H 10/06/24 14:50 Hematocrit 42.6 % (42-52) 10/06/24 14:50 Hgb O2 Saturation 93.0 % (95-100) L 10/06/24 14:50 Carboxyhemoglobin 1.2 %THgb (0.4-20.1) 10/06/24 14:50 Methemoglobin 1.0 % (0.4-1.5) 10/06/24 14:50 Total Hemoglobin 13.9 g/dL (14-18) L 10/06/24 14:50 Sodium 140.0 mmol/L (131-143) 10/06/24 14:50 Potassium 3.5 mmol/L (3.5-5.0) 10/06/24 14:50 Glucose 120.0 mg/dL (70-115) H 10/06/24 14:50 Ionized Calcium 1.2 mmol/L (1.1-1.4) 10/06/24 14:50 O2 Delivery Device Nc 10/06/24 14:50 O2 Liters/Min 3.0 % 10/06/24 14:50 FiO2 32.0 % 10/06/24 14:50 Operations And Maintenance Technician ID glc 10/06/24 14:50 Sodium 138 mmol/L (136-145) 10/06/24 12:59 Potassium 2.3 mmol/L (3.5-5.1) L* 10/06/24 12:59 Chloride 104 mmol/L (98-107) 10/06/24 12:59 Carbon Dioxide 20 mmol/L (22-29) L 10/06/24 12:59 Anion Gap 16.3 (5-19) 10/06/24 12:59 BUN 21 mg/dL (8-23) 10/06/24 12:59 Creatinine 1.0 mg/dL (0.7-1.2) 10/06/24 12:59 GFR Calculation Not Reportable 10/06/24 12:59 Glucose 381 mg/dL (65-115) H 10/06/24 12:59 POC Glucose 87 mg/dL (70-110) 10/06/24 14:23 Calculated Osmolality 305 mOsm/kg (285-295) H 10/06/24 12:59 Lactic Acid 2.7 mmol/L (0.5-2.2) H 10/06/24 12:59 Calcium 7.4 mg/dL (8.5-10.5) L 10/06/24 12:59 Total Bilirubin 0.4 mg/dL (0.15-1.2) 10/06/24 12:59 AST 15 U/L (0-40) 10/06/24 12:59 ALT 9 U/L (0-41) 10/06/24 12:59 Alkaline Phosphatase 56 U/L (40-130) 10/06/24 12:59 Total Protein 5.3 g/dL (6.6-8.7) L 10/06/24 12:59 Albumin 3.0 g/dL (3.5-5.2) L 10/06/24 12:59 Globulin 2.3 g/dL (1.3-4.6) 10/06/24 12:59 Urine Color Yellow (Yellow) 10/06/24 12:00 Urine Appearance Clear (CLEAR) 10/06/24 12:00 Urine pH 5.0 (5-7) 10/06/24 12:00 Ur Specific [place] 1.026 (1.005-1.030) 10/06/24 12:00 Urine Protein Trace (Negative) A 10/06/24 12:00 Urine Glucose (UA) 3+ (Normal) H 10/06/24 12:00 Urine Ketones Trace (Negative) 10/06/24 12:00 Urine Blood Negative (Negative) 10/06/24 12:00 Urine Nitrate Negative (Negative) 10/06/24 12:00 Urine Bilirubin Negative (Negative) 10/06/24 12:00 Urine Urobilinogen 1.0 mg/dL (Negative) 10/06/24 12:00 Ur Leukocyte Esterase Negative (Negative) 10/06/24 12:00 Urine RBC 0-2 /hpf (0-2) 10/06/24 12:00 Urine WBC 0-5 /hpf (0-5) 10/06/24 12:00 Ur Squamous Epith Cells 0-5 /hpf (0-5) 10/06/24 12:00 Calcium Oxalate Crystal 5-10 /hpf H 10/06/24 12:00 Amorphous Sediment Not Reportable 10/06/24 12:00 Urine Bacteria None seen /hpf (NONE) 10/06/24 12:00 Hyaline Casts 7.42 /lpf 10/06/24 12:00 Urine Yeast Trace /hpf 10/06/24 12:00 Influenza A (PCR) Negative (Negative) 10/06/24 12:05 Influenza Type B (PCR) Negative (Negative) 10/06/24 12:05 RSV (PCR) Negative (Negative) 10/06/24 12:05 SARS-CoV-2 (PCR) Negative (Negative) 10/06/24 12:05 All radiology interpretation(s) finalized by discharge Discharge Plan Discharge Patient Disposition: Admitted As Inpatient Clinical Impression: Hypoglycemia, Acute hypotension, Hypothermia, Pneumonia, Sepsis, Hypokalemia Condition: Stable Coding Level of Care Code ED [employer] Sales Representative for Adelaida Hayes
[2024-10-06 12:05] LABS: Glucose Point of Care 84 mg/dL (70-110)
[2024-10-06 12:05] LABS: Glucose Point of Care 29 mg/dL (70-110)
[2024-10-06 12:41] LABS: Glucose Point of Care 57 mg/dL (70-110)
[2024-10-06 12:45] LABS: Influenza A NEGATIVE (Negative); Influenza B NEGATIVE (Negative); Respiratory Syncytial Virus Ce NEGATIVE (Negative); SARS-CoV-2 PCR NEGATIVE (Negative)
[2024-10-06 12:56] LABS: Bilirubin Urine Negative (Negative); Blood Urine Negative (Negative); Glucose Urine UA 3+ (Normal); Ketones Urine Trace (Negative); Leukocyte Esterase Urine Negative (Negative); Nitrate Urine Negative (Negative); Protein Urine Trace (Negative); Specific Gravity, Urine 1.026 (1.005-1.030); Urine Appearance Clear (CLEAR); Urine Color Yellow (Yellow)
[2024-10-06 12:59] LABS: Bacteria Urine None Seen /hpf; Hyaline Casts Urine 7.42 /lpf; RBC Urine 0-2 /hpf (0-2); Squamous Epithelial Cell Urine 0-5 /hpf (0-5); WBC Urine 0-5 /hpf (0-5)
[2024-10-06 13:01] LABS: Glucose Point of Care 67 mg/dL (70-110)
[2024-10-06 13:10] LABS: Basophils % 0.2 %; Hematocrit 39.6 % (37-53); Lymphocytes # 0.5 10^3/uL (0.8-4.8); Lymphocytes % 4.7 %; Mean Corpuscular HGB Conc 30.6 g/dL (30-55); Mean Corpuscular Hemoglobin 31.5 pg (27-33); Mean Corpuscular Volume 103.1 fl (82-101); Mean Platelet Volume 11.2 fL (7.4-10.4); Monocytes # 0.5 10^3/uL (0.2-0.9); Monocytes % 5.1 %; Neutrophils # 8.49 10^3/uL (1.8-7.7); Neutrophils % 89.4 %; Nucleated Red Blood Cells % 0 %; Platelet Count 138 10^3/cmm (157-399); Red Blood Count 3.84 10^6/uL (3.85-5.65); Red Cell Distribution Width 15.5 % (12.1-15.1)
[2024-10-06 13:15] LABS: UA Slide Review UA Slide Review Perf
[2024-10-06 13:17] LABS: Add Urine Culture? No
[2024-10-06 13:22] LABS: Lactic Sepsis W/Reflex 2.7 mmol/L (0.5-2.2)
[2024-10-06 13:23] LABS: Alanine Aminotransferase 9 U/L (0-41); Alkaline Phosphatase 56 U/L (40-130); Anion Gap 16.3 (5-19); Aspartate Amino Transferase 15 U/L (0-40); Blood Urea Nitrogen 21 mg/dL (8-23); Calcium 7.4 mg/dL (8.5-10.5); Carbon Dioxide 20 mmol/L (22-29); Chloride 104 mmol/L (98-107); Creatinine Clr Calc Pharmacy 70.7342; Globulin 2.3 g/dL (1.3-4.6); Glucose 381 mg/dL (65-115); Osmolality Calculated 305 mOsm/kg (285-295); Sodium 138 mmol/L (136-145); Total Bilirubin 0.4 mg/dL (0.15-1.2); Total Protein 5.3 g/dL (6.6-8.7)
[2024-10-06 13:31] LABS: Glucose Point of Care 82 mg/dL (70-110)
--- NOTE | 2024-10-06 13:33 | XR_ITS ---
WS: [id number] Portable AP upright chest, 10/06/2024 Clinical Data: Shortness of breath Comparison: Portable chest, 05/02/2024 Findings: There is minimal patchy opacity in the left cardiophrenic angle. This could represent atelectasis, and/or pneumonia or localized edema. No nodules, masses or effusions are seen. The heart is slightly enlarged. The pulmonary vascularity is not increased. No pneumothorax is seen. The aortic arch shows mild calcification and tortuosity. There are midline sternotomy sutures. There are old right fifth through eighth rib fractures. There are are small plates with screws fixing old anterior left third, fourth and fifth rib fractures. There are monitor leads on the chest wall. XR/XR chest 1V portable [id number] Impression: 1. Minimal patchy opacity at the left cardiophrenic angle which could represent atelectasis, pneumonia and/or edema. 2. Mild cardiomegaly. 3. Atherosclerosis. 4. Old right and left rib fractures.
[2024-10-06 13:35] LABS: Potassium 2.3 mmol/L (3.5-5.1)
[2024-10-06] MEDS: potassium chloride oral liq 20 mEq/15 mL UDC 40 MEQ PO (14:07)
[2024-10-06] MEDS: meropenem 500 mg SDV IVP (14:09)
[2024-10-06] MEDS: linezolid premix 600 MG/300 ML PREMIX 300 MG IV (14:09)
[2024-10-06] MEDS: potassium chloride premix 100 ML 25 MEQ IV (14:10)
[2024-10-06] MEDS: sodium chloride 0.9% 1,000 ML 999 ML IV ×2 (14:15→15:08)
[2024-10-06 14:26] LABS: Glucose Point of Care 87 mg/dL (70-110)
--- NOTE | 2024-10-06 14:42 | CT_ITS ---
WS: [id number] CT CHEST, ABDOMEN AND PELVIS WITH CONTRAST HISTORY: sepsis TECHNIQUE: Contiguous 5 mm axial imaging performed through the chest, abdomen and pelvis with IV contrast, oral contrast has not been provided. Coronal and sagittal reformats chest. Coronal and sagittal reformats through the abdomen and pelvis. All CT scans at [facility] use at least one of these dose optimization techniques: automated exposure control; mA and/or kV adjustment per patient size (includes targeted exams where dose is matched to clinical indication); or iterative reconstruction. CONTRAST: Omnipaque 350; 100 mL IV. DLP: 1562.45 mGy.cm COMPARISON: 04/29/2024, 02/18/[address]: Pulmonary hyperinflation with paraseptal emphysema. Chronic peripheral interstitial thickening at the lung bases and subsegmental areas of atelectasis greatest at the LEFT lung base. Suspect early changes of honeycombing at the LEFT lung base. No dense consolidation or pneumonia. Atherosclerosis aorta. No aneurysm or dissection. Prior CABG. Normal sized pulmonary artery. Normal size heart. No pericardial or pleural effusions. No adenopathy. Prior plate and screw fixation several anterior LEFT ribs. Additional healed rib fractures RIGHT thorax. Subcutaneous nodule along the LEFT lateral chest wall vessel. No change since 09/12/2023. There is a calcification in the fat adjacent to the lateral ventricle which may be an area of fat necrosis which has calcified. Abdomen CT: Unremarkable liver and spleen. Cholelithiasis in a nondistended gallbladder. No evidence for acute cholecystitis. Normal portal vein. Normal pancreas. No adrenal mass. No renal obstruction. RIGHT renal cysts with the largest measuring 2.8 cm. Extensive atherosclerotic plaque within the aorta. No GI tract obstruction. No colitis. Numerous sigmoid diverticulosis. No convincing evidence for acute diverticulitis. Short segment area of narrowing and enhancement in sigmoid wall. Normal appendix. Pelvic CT: No free fluid. Urinary bladder is minimally distended. Prostate gland is enlarged and heterogeneous. Heavy calcification in the iliac arteries extending into the femoral arteries. CT/CT chest abdpel w/*[id number] IMPRESSION: 1. No pneumonia. 2. Suspect early changes of pulmonary fibrosis and honeycombing at the LEFT sascha ng base. 3. Atherosclerosis aorta with no aneurysm. 4. No evidence for acute cholecystitis. 5. Sigmoid diverticulosis. No evidence for acute diverticulitis. Short segment area of sigmoid narrowing and enhancement. No obstruction. Endoscopy may be be neficial for further evaluation of the sigmoid colon. 6. Prostate gland enlargement. 7. No ascites or adenopathy. 8. No renal obstruction.
[2024-10-06 14:51] LABS: Reflex Lactate Order REFLEX LACTIC ORDERD
[2024-10-06 15:02] LABS: ABG PH Result 7.36 (7.35-7.45); Alveolar-Arterial Oxygen Gradi 13.6 mmHg (5-10); Arterial Blood Gas Hematocrit 42.6 % (42-52); Base Excess ABG -1.1 mmol/L (-2.0-2.0); Blood Gas Operator Identificat glc; Blood Gas Sample Site Femoral, left; Blood Gas Sample Type Arterial; Carboxyhemoglobin 1.2 %THgb (0.4-20.1); HCO3 ABG 24.5 mmol/L (22-26); Ionized Calcium Level - ABG 1.2 mmol/L (1.1-1.4); Oxygen Device NC; Oxygen Saturation ABG 95.1; PO2 ABG 70.7 mmHg (80.0-100.0); PO2 FiO2 Ratio Arterial Blood 220; Potassium Level - ABG 3.5 mmol/L (3.5-5.0); Total Hemoglobin 13.9 g/dL (14-18)
[2024-10-06 15:05] LABS: Amphetamines Screen Urine Negative (Negative); Barbiturates Screen Urine Negative (Negative); Benzodiazepines Screen Urine Negative (Negative); Cocaine Screen Urine Negative (Negative); Opiate Screen Urine Negative (Negative); PCP Screen Urine Negative (Negative); THC Screen Urine Negative (Negative)
[2024-10-06 15:12] LABS: Potassium, Radom Urine 72 mmol/L; Urine Random Chloride 37 mmol/L; Urine Random Sodium 34 mmol/L
[2024-10-06] MEDS: iohexol 350 mg/mL 500 mL Btl (per mL) IV (15:16)
[2024-10-06 15:24] LABS: Cortisol Random 25.97 ug/dL (2.47-19.5); Procalcitonin 0.12 ng/mL (0-0.5)
--- NOTE | 2024-10-06 15:25 | PM.HP ---
Providers/Chief Complaint Admitting Physician: Erick Rushing MD Primary Care Provider: Radha Blevins MD Chief Complaint: Low BS History of Present Illness Ambrose Villa is a 78 year old male with past medical history of type 2 diabetes mellitus on insulin, hypertension, COPD, CAD, systolic congestive heart failure with last known EF of 40% presents to the ER today because of confusion and blacking out. Patient lives by himself. On examination when seen in the ICU patient is awake and alert. He states last thing he remembers is 12:00 at night when he went to bed and next thing he remembers is 12:00 in the afternoon today when he is found himself in the hospital. Patient states he has been having difficulty in breathing feeling his chest is congested for last 4 to 5 days. He lives by himself but his girlfriend who visits him often also has been dealing with a viral bronchitis for last 1 week to 10 days. As per the patient he remembers checking his blood sugars at night which was found to be 40. He was confused so he kept giving himself more insulin overnight thinking his blood sugars will improve. In the ER when he was seen he was found to be hypothermic, hypotensive, hypokalemic, confused, hypoglycemic. He received a dose of 500 of meropenem, 600 of linezolid, 40 of IV potassium, 2 L of IV fluid bolus. On examination patient is awake and alert x 3, saturating more than 95% on 2 L, blood pressure of 110 systolic with a pulse of 70 with caregiver at bedside Review of Systems General: Reports: 10 or more systems reviewed and unremarkable except in HPI and below Const: Denies: fever(s), chills, body aches, change in appetite, change in weight, malaise, night sweats, diaphoresis, change in sleep pattern, daytime sleepiness or snoring Eyes: Denies: change in vision, blurry vision, photophobia, eye discomfort or eye discharge ENMT: Denies: throat pain, enlarged tonsils, hoarseness, mouth pain, oral sores, dry mouth, tinnitus, nasal congestion or post nasal drip Card: Denies: chest pain, palpitations, irregular heart rhythm, edema, swelling of feet/ankles, lightheadedness, syncope, pre-syncope, dyspnea on exertion, orthopnea, leg pain with exertion or acrocyanosis Resp: Denies: dyspnea, productive cough, non-productive cough, wheezing, stridor, pain on inspiration, change in phlegm color, hemoptysis or chest congestion GI: Denies: abdominal pain, nausea, vomiting, hematemesis, coffee ground emesis, dysphagia, heartburn, diarrhea, constipation, bloating, GI cramping, change in bowel habits, pain on defecation, hematochezia or melena : Denies: flank pain, difficulty urinating, dysuria, urinary frequency, urinary urgency, urinary hesitancy, urinary dribbling, difficulty starting urination, change in urine stream, nocturia or hematuria Musc: Denies: neck pain, back pain, extremity pain, joint pain, joint swelling, joint redness, joint stiffness or limited range of motion Neuro: Denies: headache(s), numbness in extremities, weakness in extremities, sensory changes, lack of coordination, difficulty walking, frequent falls, dizziness, vertigo, confusion, Slurred speech present, difficulty communicating thoughts or seizure-like activity Psych: Denies: anxiety, depression, mood swings, panic attacks, hopelessness or irritability Endo: Denies: polyuria, polydipsia, tired all the time, cold intolerance, excessive sweating, flushing or heat intolerance Rafa/Lymph: Denies: easy bruising or easy bleeding All/Imm: Denies: tongue swelling, facial swelling or acute wheezing Medications/Allergies Home Medications ?Medication ?Instructions ?Recorded ?Confirmed ?Last Taken ?Type clopidogrel 75 mg tablet (Plavix) 75 mg PO DAILY 08/02/21 10/06/24 04/29/24 History Held on 04/30/24. Instructions: Resume on 05/03/24. aspirin 81 mg chewable tablet 81 mg PO DAILY 02/18/24 10/06/24 10/06/24 History atorvastatin 80 mg tablet 80 mg PO QPM 02/18/24 10/06/24 10/05/24 History empagliflozin 25 mg tablet 25 mg PO DAILY 02/18/24 10/06/24 10/06/24 History (Jardiance) folic acid 1 mg tablet 1 mg PO DAILY 02/18/24 10/06/24 10/06/24 History metoprolol succinate 25 mg 25 mg PO DAILY #30 tabs 02/19/24 10/06/24 Unknown Rx tablet,extended release 24 hr furosemide 20 mg tablet 10 mg PO BID PRN Edema 04/29/24 10/06/24 10/06/24 History Held on 04/30/24. Instructions: Resume on 05/03/24. insulin aspart U-100 100 unit/mL See Rx Instructions .Route 04/30/24 10/06/24 Unknown Rx (3 mL) subcutaneous pen (Novolog .COMPLEX #15 mL FlexPen U-100 Insulin aspart) insulin glargine 100 unit/mL 11 unit SUBCUT QAM 10/06/24 10/06/24 10/06/24 History subcutaneous solution (Lantus U-100 Insulin) pioglitazone 30 mg tablet 30 mg PO DAILY 10/06/24 10/06/24 10/06/24 History Allergies Allergy/AdvReac Type Severity Reaction Status Date / Time Penicillins Allergy ALGY-Difficulty Verified 07/16/24 09:59 Breathing PFSH Acute PFSH: Medical History (Updated 10/06/24 @ 17:27 by Erick Rushing MD) Hydronephrosis, right Right nephrolithiasis 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 Atherosclerosis of coronary artery of [place] heart without angina pectoris Non-ST elevated myocardial infarction COPD with hypoxia Chronic kidney disease Renal calculi Moderate aortic stenosis by prior echocardiogram Coronary artery disease CABG x 4 in 2011, history of sternal nonunion. 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 Complicating treatment of stones Uric acid urolithiasis Hx of chest wall injury COPD (chronic obstructive pulmonary disease) Chronically on 3 L of oxygen Congestive heart failure Moderate aortic stenosis last echocardiogram Diabetes type 2, uncontrolled Sleep apnea On CPAP On home O2 History of kidney stones High cholesterol Neuropathy Surgical History (Updated 10/06/24 @ 17:11 by Erick Rushing MD) S/P CABG (coronary artery bypass graft) Status post placement of ureteral stent History of quadruple bypass Hx of lithotripsy Family History Mother , at age 76 COPD (chronic obstructive pulmonary disease) Father , at age 68-aortic aneurysm No problems noted. Social History Smoking and tobacco/nicotine status: former use of tobacco/nicotine Alcohol intake: former Substance/Drug Use: never Marital status: Current occupational status: retired Current gender identity: Male Vitals/I&O/Wt Last Vital Signs Temp 94.3 F L 10/06/24 15:24 Pulse 73 10/06/24 15:24 Resp 14 10/06/24 12:45 BP 110/56 10/06/24 14:30 Pulse Ox 97 10/06/24 15:24 O2 Del Method Room Air 10/06/24 15:24 O2 Flow Rate 3 10/06/24 14:30 10/06/24 10/06/24 10/06/24 06:59 14:59 22:59 Intake Total 700 / 700 Balance 700 / 700 Weight last 48 hrs Weight 99.79 kg Physical Exam Narrative: General: No acute distress, AO x3, chronically sick appearing, on nasal cannula HEENT: PERRLA, pupils bilaterally equal and reactive Chest: Bilateral bronchial breath sounds all over lung [place] with occasional rhonchi and coarse crackles CVS: S1-S2 regular, no murmurs, no tachycardia, no gallops, no rubs Abdomen: Soft, nontender, no organomegaly, bowel sounds present Neuro: No focal deficits, no facial deformity, AO x3, power 5/5 in all limbs Data 10/06/24 12:59 10/06/24 12:59 Micro: Microbiology 10/06/24 11:45 Blood Culture - Preliminary Blood SPECIMEN COLLECTED 10/06/24 11:41 Blood Culture - Preliminary Blood SPECIMEN COLLECTED A&P Assessment and plan (1) Sepsis: SIRS: Hypothermic, confused Source: Possible pneumonia versus bronchitis End organ damage: Acute infectious encephalopathy, hypothermia, Lactic acid elevated Patient did not receive full 30 mL/kg BW given history of CHF Monitor blood pressures. Keep mean artery pressure 65 mmHg. Follow-up blood culture, urinalysis negative for concern for UTI, MRSA swab, trend procalcitonin. Empirically start on IV vancomycin and meropenem for now. If MRSA swab negative will discontinue vancomycin. De-escalate antibiotics as per culture results. (2) Acute hypotension: Most likely in setting of sepsis. Responded to fluid bolus. Start on fluid at 75 cc/h. Watch for fluid overload. Patient has history of systolic and diastolic congestive heart failure. Check cortisol level. Maintain mean artery pressure 65. If not maintaining can start on Levophed. Hold off on antihypertensive. (3) Hypoglycemia: Most likely in setting of extra doses of Humalog which he took by himself when confused. Start on D5 NS at 75 cc/h. Cortisol level as above. Hold off insulin for now. AC check every 2 hours. Also getting steroids for COPD exacerbation which should help. If needed will give glucagon. (4) Hypokalemia: Potassium found to be 2.3 in the ER. Patient denies any diarrhea. Could be in setting of extra doses of insulin which he has used overnight. Getting 80 mg of potassium through ER. Recheck BMP at 5 PM. Will replace accordingly. Target potassium around 4. (5) Hypothermia: Could be in setting of sepsis. Cannot rule out in setting of severe hypoglycemia. Check cortisol level as above. Continue to monitor. [place] rex if needed. (6) COPD (chronic obstructive pulmonary disease): With mild exacerbation. Chronically on 3 L. Could be in setting of viral bronchitis. Start on Solu-Medrol 40 mg Q6 hourly. Pulmicort twice daily, DuoNeb every 6 hour. Supplementation keeping saturation of 90%. Qualifiers: COPD type: unspecified COPD Qualified Code(s): J44.9 - Chronic obstructive pulmonary disease, unspecified (7) Accidental overdose of insulin: (8) Congestive heart failure: Chronic systolic and diastolic. Compensated. Last echocardiogram for 2023 showed an EF of 40% with grade 1 diastolic dysfunction, normal PA pressures. Watch for fluid overload. Recheck echocardiogram. Qualifiers: Heart failure chronicity: chronic Heart failure type: combined systolic and diastolic Qualified Code(s): I50.42 - Chronic combined systolic (congestive) and diastolic (congestive) heart failure (9) Ischemic cardiomyopathy: (10) Sleep apnea: Qualifiers: Sleep apnea type: unspecified type Qualified Code(s): G47.30 - Sleep apnea, unspecified (11) History of orthostatic hypotension: (12) Altered mental status: Most likely in setting of sepsis worsening because of severe hypoglycemia because of accidental overdose of insulin. Improving. Urine drug screen negative. Appreciate CT head Plan CODE STATUS: Discussed in detail with the patient. Full code. His neighbor and girlfriend will be the DPOA. Carb consistent cardiac diet Protonix OPD prophylaxis Heparin 5012 hourly for DVT prophylaxis. PDMP PDMP Reviewed: Not Reviewed Attestations Medical Necessity Statement*: Admission for more than 2 midnights for management of severe hypertension, persistent hypoglycemia, severe hypothermia and hypokalemia in setting of sepsis, extra doses of insulin, altered mental status Critical Care Time: The high probability of a clinically significant, sudden or life threatening deterioration of the patient's [endocrine, renal, cardiac] system(s) required my full and direct attention, intervention and personal management. The critical care time is as shown. This time is in addition to time spent performing any reported procedures but includes the following: [x] Data and vital sign review and interpretation [x] Patient assessment, examination and intervention [x] Documentation [x] Medication orders and management Critical Care Time (min): 80 Coding Level of Care Code Critical Care >/= 30 minutes Critical care time (in minutes): 80 The high probability of a clinically significant, sudden or life threatening deterioration, as referenced in this documentation, required my full and direct attention, intervention and personal management. The critical care time shown is in addition to time spent performing any reported separately billable procedures and includes the following: [x] Data and vital sign review and interpretation [x] Patient assessment, examination and intervention [x] Medication orders and management [x] Patient/Family updates as able [x] Care Coordination and Documentation. Other Coding Information This patient has a high probability of clinically significant, sudden or life threatening deterioration of the patient's (neurological/pulmonary/cardiac/renal/ID/endocrine) systems required my full, direct attention, the highest level of physician preparedness for urgent intervention and personal management. I managed/supervised life or organ supporting interventions that required frequent physician assessment. I devoted my full attention in the ICU to the direct care of this patient for the period of time indicated above. Time I spent with family or surrogate(s) is included only if the patient was incapable of providing necessary information or participating in decision making. This time includes the following services provided: Telemetry review Hemodynamic interpretation, assessment and management Review and interpretation of CXR Review and interpretation of lab values Review and interpretation of microbiologic data and culture results Review of medications and administration Review and interpretation of Nutrition requirements and management Discussion of management with other consultants and services Clinical update to family members Diagnoses Sepsis A41.9 Acute hypotension I95.9 Hypoglycemia E16.2 Hypokalemia E87.6 Hypothermia T68.XXXA Chronic obstructive pulmonary disease, unspecified COPD type J44.9 COPD type: unspecified COPD Accidental overdose of insulin T38.3X1A Chronic combined systolic and diastolic congestive heart failure I50.42 Heart failure chronicity: chronic Heart failure type: combined systolic and diastolic Ischemic cardiomyopathy I25.5 Sleep apnea, unspecified type G47.30 Sleep apnea type: unspecified type History of orthostatic hypotension Z86.79 Altered mental status R41.82
--- NOTE | 2024-10-06 15:42 | PC.NURSE ---
Per Dr. Phillips, verbal order for K rider can infuse thru a peripheral line.
[2024-10-06 15:46] LABS: Glucose Point of Care 92 mg/dL (70-110)
--- NOTE | 2024-10-06 16:39 | USCV_ITS ---
Ambrose Villa Age: 78 Gender: M : 1945 Exam Date: 10/06/2024 21:33 Ordering Phys: Erick Rushing MD Technologist: LORI [place] [facility] [place] shock, DM2, HTN, COPD, CAD s/p CABG TWICE, CHF BP: 110 / 50 HR: 73 Rhythm: Sinus Technical Quality: Adequate MEASUREMENTS (Male / Female) Normal Values 2D ECHO LV Diastolic Diameter PLAX 4.3 cm 4.2 - 5.9 / 3.9 - 5.3 cm IVS Diastolic Thickness 1.3 cm 0.6 - 1.0 / 0.6 - 0.9 cm IVS Systolic Thickness 1.8 cm LVPW Diastolic Thickness 1.0 cm 0.6 - 1.0 / 0.6 - 0.9 cm LVPW Systolic Thickness 1.6 cm LVOT Diameter 2.0 cm LV Ejection Fraction 2D Teich 57.0 % LV Ejection Fraction MOD 4C 63.5 % LV Ejection Fraction MOD 2C 57.9 % LV Ejection Fraction 2C AL 60.2 % LA Diameter 5.0 cm Aorta at Sinotubular Diameter 2.5 cm IVC Diameter 2.7 cm M-MODE LA Ao Ratio MM 1.5 AV Cusp Separation MM 1.1 cm DOPPLER AV Peak Velocity 155.0 cm/s LVOT Peak Velocity 94.0 cm/s AV Area Cont Eq vti 2.1 cm squared AV Area Cont Eq pk 1.8 cm squared MV Peak Velocity 131.0 cm/s MV Area PHT 3.7 cm squared TV Peak Velocity 313.0 cm/s TR Peak Velocity 342.0 cm/s TR Peak Gradient 46.8 mmHg TV Peak E Velocity 61.0 cm/s PV Peak Velocity 153.0 cm/s FINDINGS Left Ventricle Normal LV size ejection fraction of 58%.abnormal septal motion consistent with conduction abnormality. Right Ventricle Possibly normal RV size and ejection fraction Right Atrium Mildly increased right atrial size. Left Atrium The left atrium is normal in size. Mitral Valve Mild-moderate mitral valve regurgitation. Aortic Valve Thickened aortic valve. Trace to mild aortic valve regurgitation. Tricuspid Valve Mild tricuspid valve regurgitation. Estimated pulmonary artery peak systolic pressure 57 mmHg Pulmonic Valve Pulmonic valve not well visualized. Pericardium Normal pericardium without effusion. Aorta Normal aortic annulus size. IVC Normal IVC dimension with <50% respiratory change of the inferior vena cava. Estimated right atrial pressure of 10 mmHg. CONCLUSIONS Normal LV size ejection fraction of 58%. Abnormal septal motion consistent with conduction abnormality. Mild-moderate mitral valve regurgitation. Mildly increased right atrial size. Thickened aortic valve. Trace to mild aortic valve regurgitation. Mild tricuspid valve regurgitation. Moderate pulmonary hypertension with an estimated pulmonary artery peak systolic pressure 57 mmHg There is no pericardial effusion. There are no intracardiac masses. Compared to the study from October 2023, there is significant improvement in the LV ejection fraction from 40% to 58% Dr Hansa Humphrey MD [facility] (Electronically Signed) Final Date: 07 October 2024 17:08 S
[2024-10-06] MEDS: meropenem 1,000 mg SDV 1000 MG IVP (17:00)
[2024-10-06] MEDS: dextrose 5%-sod chloride 0.9% 1,000 ML 75 ML IV (17:00)
[2024-10-06 17:17] LABS: Glucose Point of Care 48 mg/dL (70-110)
--- NOTE | 2024-10-06 17:37 | PHA.VACGOAL ---
Vancomycin Goal - Goal Vancomycin Goal:: 15-20 mg/L Vancomycin Indication:: Other (SEPSIS) - Therapy Current therapy:: Meropenem Day of therpy:: Day 1 of [] Actual body weight (kg): 245 lb 13.047 oz - Data Labs: WBC 9.50 10^3/uL (3.29-11.43) 10/06/24 12:59 Corrected WBC Cancelled 10/06/24 11:41 RBC 3.84 10^6/uL (3.85-5.65) L 10/06/24 12:59 Hgb 12.10 g/dL (11.27-16.99) 10/06/24 12:59 Hct 39.6 % (37-53) 10/06/24 12:59 MCV 103.1 fl (82-101) H 10/06/24 12:59 MCH 31.5 pg (27-33) 10/06/24 12:59 MCHC 30.6 g/dL (30-55) 10/06/24 12:59 RDW 15.5 % (12.1-15.1) H 10/06/24 12:59 Sodium 138 mmol/L (136-145) 10/06/24 12:59 Potassium 2.3 mmol/L (3.5-5.1) L* 10/06/24 12:59 Chloride 104 mmol/L (98-107) 10/06/24 12:59 Carbon Dioxide 20 mmol/L (22-29) L 10/06/24 12:59 Anion Gap 16.3 (5-19) 10/06/24 12:59 BUN 21 mg/dL (8-23) 10/06/24 12:59 Creatinine 1.0 mg/dL (0.7-1.2) 10/06/24 12:59 GFR Calculation Not Reportable 10/06/24 12:59 Last dialysis session:: N/A Treatment plan:: new consult Regimen:: PATIENT RECEIVED MEROPENEM AND LINEZOLID IN ER. STARTING A MAINTENANCE DOSE OF VANCOMYCIN AT 1750 MG Q12H PER DOSING PROTOCOL. Follow up:: WILL MONITOR AND CONTINUE TO FOLLOW UP DAILY.
[2024-10-06 18:26] LABS: Glucose Point of Care 51 mg/dL (70-110)
[2024-10-06 18:40] LABS: Glucose Point of Care 48 mg/dL (70-110)
[2024-10-06] MEDS: atorvastatin 40 mg Tablet 80 MG PO (18:54)
[2024-10-06] MEDS: docusate sodium 100 mg Capsule PO (18:54)
[2024-10-06] MEDS: methylPREDNISolone sod succ 40 mg/mL INJ IVP ×2 (18:54→22:14)
[2024-10-06] MEDS: pantoprazole 40 mg SDV IVP (18:54)
[2024-10-06] MEDS: heparin 5,000 unit/mL INJ 1 mL 5000 UNIT SUBCUT (18:55)
[2024-10-06] MEDS: vancomycin 1,750 MG/350 ML PIGGYBACK 175 MG IV (19:03)
[2024-10-06 19:06] LABS: MRSA PCR OZH (swab) NOT DETECTED (Negative)
[2024-10-06 19:44] LABS: Adenovirus Not Detected (NOT DETECT); Chlamydia Pneumoniae Not Detected (NOT DETECT); Coronavirus 229E,HKU1,NL63,OC4 Not Detected (NOT DETECT); Human Metapneumovirus Not Detected (NOT DETECT); Human Rhinovirus/Enterovirus Not Detected (NOT DETECT); Influenza A Not Detected (NOT DETECT); Influenza A H1 Not Detected (NOT DETECT); Influenza A H1-2009 Not Detected (NOT DETECT); Influenza A H3 Not Detected (NOT DETECT); Influenza B Not Detected (NOT DETECT); Mycoplasma Pneumoniae Not Detected (NOT DETECT); Parainfluenza Virus Type 1 Not Detected (NOT DETECT); Parainfluenza Virus Type 2 Not Detected (NOT DETECT); Parainfluenza Virus Type 3 Not Detected (NOT DETECT); Parainfluenza Virus Type 4 Not Detected (NOT DETECT); Respiratory Syncytial Virus A Not Detected (NOT DETECT); Respiratory Syncytial Virus B Not Detected (NOT DETECT); SARS-COV-2 Not Detected (NOT DETECT)
[2024-10-06 19:49] LABS: Anion Gap 17.4 (5-19); Blood Urea Nitrogen 23 mg/dL (8-23); Calcium 9.1 mg/dL (8.5-10.5); Carbon Dioxide 24 mmol/L (22-29); Chloride 106 mmol/L (98-107); Creatinine Clr Calc Pharmacy 73.6711; Iron 30 ug/dL (59-158); Osmolality Calculated 298 mOsm/kg (285-295); Percent Saturation 10.9 % (20-50); Potassium 3.4 mmol/L (3.5-5.1); Sodium 144 mmol/L (136-145); Thyroid Stimulating Hormone 0.47 uIU/mL (0.27-4.20); Total Iron Binding Capacity 275 mcg/dl; Unsaturated Iron Binding 245 ug/dL (112-347)
[2024-10-06 19:53] LABS: Glucose 39 mg/dL (65-115)
--- NOTE | 2024-10-06 20:00 | PC.NURSE ---
Patient had labs drawn at 1831 prior to this nurse arrival, was drinking juices x 2 given by ADRIANA Cohen during report for low blood sugar. Instructed blood sugar recheck due at 8 pm. Patient eating tray of food after juice. Lab called with critical result blood sugar from 1831 of 38. Patient alert and oriented x 4 finger stick blood glucose checked at this time results 87. Prior noted iv infiltrate at 1920 easter eggs sized infilate area. ( d5 and Krider) not infusing, attempted new iv start- unable to place. Albert special agent in charge into start line. Md not called as orders for treatment on chart and known admission diagnosis.
[2024-10-06 20:01] LABS: Glucose Point of Care 87 mg/dL (70-110)
[2024-10-06] MEDS: budesonide 0.5 mg/2 mL Neb INHALATION (20:05)
[2024-10-06] MEDS: ipratropium-albuterol 3 mL Neb INHALATION (20:05)
[2024-10-06 20:30] LABS: Estmated Average Glucose 134; Hemoglobin A1C 6.3 % (4.0-6.0)
[2024-10-06] MEDS: benzonatate 100 mg Capsule PO (22:14)
[2024-10-06 22:46] LABS: Glucose Point of Care 155 mg/dL (70-110)
[2024-10-07] VITALS (25 sets, daily range): BP systolic 96–129; BP diastolic 52–65; PULSE 64–99; RESP 13–24; TEMP 36.6–36.9; O2SAT 90–98
[2024-10-07 00:14] LABS: Vitamin B12 553 pg/mL (232-1245)
[2024-10-07] MEDS: meropenem 1,000 mg SDV 1000 MG IVP ×3 (01:46→17:23)
[2024-10-07 02:22] LABS: Glucose Point of Care 205 mg/dL (70-110)
[2024-10-07 02:23] LABS: Glucose Point of Care 240 mg/dL (70-110)
[2024-10-07 04:48] LABS: Basophils % 0.1 %; Hematocrit 43.5 % (37-53); Lymphocytes # 0.6 10^3/uL (0.8-4.8); Lymphocytes % 6.7 %; Mean Corpuscular HGB Conc 31.3 g/dL (30-55); Mean Corpuscular Hemoglobin 31.5 pg (27-33); Mean Corpuscular Volume 100.7 fl (82-101); Mean Platelet Volume 11.8 fL (7.4-10.4); Monocytes # 0.1 10^3/uL (0.2-0.9); Monocytes % 0.6 %; Neutrophils # 8.52 10^3/uL (1.8-7.7); Neutrophils % 91.8 %; Nucleated Red Blood Cells % 0 %; Platelet Count 159 10^3/cmm (157-399); Red Blood Count 4.32 10^6/uL (3.85-5.65); Red Cell Distribution Width 15.9 % (12.1-15.1); White Blood Count 9.28 10^3/uL (3.29-11.43)
[2024-10-07 05:02] LABS: Alanine Aminotransferase 18 U/L (0-41); Albumin Level 3.8 g/dL (3.5-5.2); Alkaline Phosphatase 76 U/L (40-130); Anion Gap 21.2 (5-19); Aspartate Amino Transferase 32 U/L (0-40); Blood Urea Nitrogen 21 mg/dL (8-23); Calcium 9.4 mg/dL (8.5-10.5); Carbon Dioxide 21 mmol/L (22-29); Chloride 105 mmol/L (98-107); Creatinine Clr Calc Pharmacy 56.6701; Glucose 251 mg/dL (65-115); Magnesium 1.9 mg/dL (1.7-2.3); Osmolality Calculated 305 mOsm/kg (285-295); Phosphorus 3.4 mg/dL (2.5-4.5); Potassium 5.2 mmol/L (3.5-5.1); Sodium 142 mmol/L (136-145); Total Bilirubin 0.5 mg/dL (0.15-1.2); Total Protein 6.8 g/dL (6.6-8.7)
[2024-10-07 05:08] LABS: Procalcitonin 0.25 ng/mL (0-0.5)
[2024-10-07 05:09] LABS: Chol HDL Ratio 2.44 mg/dL (1.0-5.00); Cholesterol 117 mg/dL (0-200); HDL Cholesterol 48 mg/dL (60-100); LDL Cholesterol Calculated 62 mg/dL (50-129); LDL HDL Ratio 1.29 RATIO (0.00-3.22); Triglycerides 36 mg/dL (0-150)
[2024-10-07 05:24] LABS: Folate Level 15.5 ng/mL (4.5-32.2)
[2024-10-07] MEDS: heparin 5,000 unit/mL INJ 1 mL 5000 UNIT SUBCUT ×2 (05:55→17:23)
[2024-10-07] MEDS: methylPREDNISolone sod succ 40 mg/mL INJ IVP ×2 (05:55→17:23)
[2024-10-07] MEDS: vancomycin 1,750 MG/350 ML PIGGYBACK 175 MG IV (05:55)
[2024-10-07] MEDS: ipratropium-albuterol 3 mL Neb INHALATION ×3 (07:41→20:52)
[2024-10-07] MEDS: budesonide 0.5 mg/2 mL Neb INHALATION ×2 (07:41→20:52)
[2024-10-07 08:36] LABS: Glucose Point of Care 258 mg/dL (70-110)
[2024-10-07] MEDS: insulin lispro 100 unit/1 mL SUBCUT ×4 (09:12→20:59)
[2024-10-07] MEDS: aspirin 81 mg Chew Tablet PO (09:13)
[2024-10-07] MEDS: clopidogrel 75 mg Tablet PO (09:13)
[2024-10-07] MEDS: folic acid 1 mg Tablet PO (09:13)
[2024-10-07] MEDS: docusate sodium 100 mg Capsule PO (09:13)
[2024-10-07 11:00] LABS: Glucose Point of Care 211 mg/dL (70-110)
--- NOTE | 2024-10-07 13:54 | P.PN_ITS ---
Subjective 2 Subjective: No acute events overnight. Patient states he is feeling a lot better, states he feels like he is back to his baseline. Body temperature better. Blood sugars improving. Remains on baseline of 3 L of oxygen supplementation. Vitals/I&O/Wt Last Vital Signs Temp 98.0 F 10/07/24 13:50 Pulse 88 10/07/24 10:00 Resp 19 H 10/07/24 10:00 BP 120/54 10/07/24 10:00 Pulse Ox 93 10/07/24 08:00 O2 Del Method Nasal Cannula 10/07/24 10:00 O2 Flow Rate 3 10/07/24 10:00 10/06/24 10/07/24 10/07/24 22:59 06:59 14:59 Intake Total 2150.00 / 2850.00 947.5 / 3797.50 575 / 575 Output Total 400 / 400 Balance 1750.00 / 2450.00 947.5 / 3397.50 575 / 575 Weight last 48 hrs Weight 113.262 kg Weight 111.5 kg Weight 99.79 kg Physical Exam 2 Narrative: General: No acute distress, AO x3, chronically sick appearing, on nasal cannula HEENT: PERRLA, pupils bilaterally equal and reactive Chest: Bilateral bronchial breath sounds all over lung bentley with occasional rhonchi and coarse crackles CVS: S1-S2 regular, no murmurs, no tachycardia, no gallops, no rubs Abdomen: Soft, nontender, no organomegaly, bowel sounds present Neuro: No focal deficits, no facial deformity, AO x3, power 5/5 in all limbs Data 10/07/24 03:18 10/07/24 03:18 Micro: Microbiology 10/06/24 11:41 Blood Culture - Preliminary Blood NEGATIVE TO DATE 10/06/24 11:45 Blood Culture - Preliminary Blood NEGATIVE TO DATE A&P Assessment and plan (1) Sepsis: SIRS: Hypothermic, confused Source: Possible pneumonia versus bronchitis End organ damage: Acute infectious encephalopathy, hypothermia, Lactic acid elevated Patient did not receive full 30 mL/kg BW given history of CHF Monitor blood pressures. Keep mean artery pressure 65 mmHg. Follow-up blood culture, urinalysis negative for concern for UTI, negative MRSA swab, appreciate trend procalcitonin. Continue with IV meropenem. DC vancomycin as MRSA swab negative. De-escalate antibiotics as per culture results. If cultures remain negative in next 24 hours we will plan to discontinue IV antibiotics and transition to oral antibiotics. (2) Acute hypotension: Most likely in setting of sepsis. Responded to fluid bolus. Blood pressure stable. Goal blood pressure less than 140/90 mmHg with mean over 65. Cortisol level normal. Hold off on any further IV fluids. Continue to monitor. Hold off on antihypertensive for now. (3) Hypoglycemia: Most likely in setting of extra doses of Humalog which he took by himself when confused. Sugars improving. DC IV fluids. Start on sliding scale low-dose protocol. Depending on insulin requirement in next 24 hours we will plan to dose to Lantus. (4) Hypokalemia: Potassium found to be 2.3 in the ER. Patient denies any diarrhea. Could be in setting of extra doses of insulin which he has used overnight. Received 80 mg of potassium overall yesterday. Potassium 5.2 today. Plan for dose of Kayexalate. Repeat BMP in afternoon. Target potassium around 4. (5) Hypothermia: Resolved. Could be in setting of sepsis. Cannot rule out in setting of severe hypoglycemia. Check cortisol level as above. Continue to monitor. [place] goodman if needed. (6) COPD (chronic obstructive pulmonary disease): With mild exacerbation. Chronically on 3 L. Could be in setting of viral bronchitis. Change Solu-Medrol to 40 mg every 12 hourly. Plan for rapid steroid tapering. Pulmicort twice daily, DuoNeb every 6 hour. Supplementation keeping saturation of 90%. Qualifiers: COPD type: unspecified COPD Qualified Code(s): J44.9 - Chronic obstructive pulmonary disease, unspecified (7) Accidental overdose of insulin: (8) Congestive heart failure: Chronic systolic and diastolic. Compensated. Last echocardiogram for 2023 showed an EF of 40% with grade 1 diastolic dysfunction, normal PA pressures. Watch for fluid overload. Follow-up repeat echocardiogram. Qualifiers: Heart failure type: combined systolic and diastolic Heart failure chronicity: chronic Qualified Code(s): I50.42 - Chronic combined systolic (congestive) and diastolic (congestive) heart failure (9) Ischemic cardiomyopathy: (10) Sleep apnea: Qualifiers: Sleep apnea type: unspecified type Qualified Code(s): G47.30 - Sleep apnea, unspecified (11) History of orthostatic hypotension: (12) Altered mental status: Resolved. Out of bed to chair. Most likely in setting of sepsis worsening because of severe hypoglycemia because of accidental overdose of insulin. Urine drug screen negative. Appreciate CT head Plan Transfer to [facility] floor. Out of bed to chair. CODE STATUS: Discussed in detail with the patient. Full code. His neighbor and girlfriend will be the DPOA. Carb consistent cardiac diet Protonix OPD prophylaxis Heparin 5000 hourly for DVT prophylaxis. PDMP PDMP Reviewed: Not Reviewed Attestations 2 Medical Necessity Statement*: Requires further hospitalization for management of altered mental status, hypoglycemia in setting of additional accidental overdose of Humalog, confusion in setting of sepsis due to bronchitis, COPD exacerbation Diagnoses Sepsis A41.9 Acute hypotension I95.9 Hypoglycemia E16.2 Hypokalemia E87.6 Hypothermia T68.XXXA Chronic obstructive pulmonary disease, unspecified COPD type J44.9 COPD type: unspecified COPD Accidental overdose of insulin T38.3X1A Chronic combined systolic and diastolic congestive heart failure I50.42 Heart failure type: combined systolic and diastolic Heart failure chronicity: chronic Ischemic cardiomyopathy I25.5 Sleep apnea, unspecified type G47.30 Sleep apnea type: unspecified type History of orthostatic hypotension Z86.79 Altered mental status R41.82
--- NOTE | 2024-10-07 16:07 | PC.NURSE ---
Report called to [facility]. Report given to ADRIANA Landrum
--- NOTE | 2024-10-07 16:29 | PC.NURSE ---
Pt transferred to room 252-1. All belongings with pt.
[2024-10-07 17:15] LABS: Glucose Point of Care 293 mg/dL (70-110)
[2024-10-07] MEDS: atorvastatin 40 mg Tablet 80 MG PO (17:22)
[2024-10-07] MEDS: pantoprazole 40 mg SDV IVP (17:24)
[2024-10-07 20:53] LABS: Glucose Point of Care 189 mg/dL (70-110)
[2024-10-08] VITALS (8 sets, daily range): BP systolic 108–137; BP diastolic 60–67; PULSE 72–83; RESP 16–18; TEMP 36.8–37.1; O2SAT 93–97; BMI 36.7
[2024-10-08] MEDS: meropenem 1,000 mg SDV 1000 MG IVP (01:19)
[2024-10-08] MEDS: methylPREDNISolone sod succ 40 mg/mL INJ IVP (04:47)
[2024-10-08] MEDS: heparin 5,000 unit/mL INJ 1 mL 5000 UNIT SUBCUT (04:48)
[2024-10-08 05:12] LABS: Basophils % 0.2 %; Lymphocytes # 0.9 10^3/uL (0.8-4.8); Lymphocytes % 8.1 %; Mean Corpuscular HGB Conc 31.8 g/dL (30-55); Mean Corpuscular Hemoglobin 31.5 pg (27-33); Mean Platelet Volume 11.6 fL (7.4-10.4); Monocytes # 0.5 10^3/uL (0.2-0.9); Monocytes % 4.4 %; Neutrophils # 9.33 10^3/uL (1.8-7.7); Neutrophils % 86.7 %; Nucleated Red Blood Cells % 0 %; Platelet Count 161 10^3/cmm (157-399); Red Blood Count 3.84 10^6/uL (3.85-5.65); Red Cell Distribution Width 15.8 % (12.1-15.1); White Blood Count 10.75 10^3/uL (3.29-11.43)
[2024-10-08 05:34] LABS: Alanine Aminotransferase 14 U/L (0-41); Albumin Level 3.5 g/dL (3.5-5.2); Alkaline Phosphatase 64 U/L (40-130); Anion Gap 16.5 (5-19); Aspartate Amino Transferase 20 U/L (0-40); Blood Urea Nitrogen 30 mg/dL (8-23); Carbon Dioxide 22 mmol/L (22-29); Chloride 108 mmol/L (98-107); Globulin 2.7 g/dL (1.3-4.6); Glucose 189 mg/dL (65-115); Osmolality Calculated 305 mOsm/kg (285-295); Phosphorus 3.4 mg/dL (2.5-4.5); Potassium 4.5 mmol/L (3.5-5.1); Sodium 142 mmol/L (136-145); Total Bilirubin 0.3 mg/dL (0.15-1.2); Total Protein 6.2 g/dL (6.6-8.7)
[2024-10-08 06:50] LABS: Glucose Point of Care 178 mg/dL (70-110)
[2024-10-08] MEDS: aspirin 81 mg Chew Tablet PO (08:42)
[2024-10-08] MEDS: folic acid 1 mg Tablet PO (08:42)
[2024-10-08] MEDS: clopidogrel 75 mg Tablet PO (08:42)
[2024-10-08] MEDS: insulin lispro 100 unit/1 mL SUBCUT (08:43)
[2024-10-08] MEDS: budesonide 0.5 mg/2 mL Neb INHALATION (09:49)
[2024-10-08] MEDS: ipratropium-albuterol 3 mL Neb INHALATION (09:50)
--- NOTE | 2024-10-08 10:02 | PC.SOCIAL ---
IMM Update pg 2 of IMM Updated and reviewed w/ patient. Copy provided and copy dated, initialed and placed in chart.
--- NOTE | 2024-10-08 10:30 | PM.DCS ---
Discharge Providers Date of Admission: 10/06/24 15:17 Date of Discharge: October 08, 2024 Attending Provider at Admission: Erick Rushing MD Attending Provider at Discharge: Erick Rushing MD Primary Care Provider: Radha Blevins MD Diagnoses at Discharge Discharge Diagnosis (1) Sepsis: Status: Acute (2) Acute hypotension: Status: Acute (3) Hypoglycemia: Status: Acute (4) Hypokalemia: Status: Acute (5) Hypothermia: Status: Acute (6) COPD (chronic obstructive pulmonary disease): Status: Acute Qualifiers: COPD type: unspecified COPD Qualified Code(s): J44.9 - Chronic obstructive pulmonary disease, unspecified Permanent problem details: Chronically on 3 L of oxygen (7) Accidental overdose of insulin: Status: Acute (8) Congestive heart failure: Status: Acute Qualifiers: Heart failure chronicity: chronic Heart failure type: combined systolic and diastolic Qualified Code(s): I50.42 - Chronic combined systolic (congestive) and diastolic (congestive) heart failure Permanent problem details: Moderate aortic stenosis last echocardiogram (9) Ischemic cardiomyopathy: Status: Acute (10) Sleep apnea: Status: Acute Qualifiers: Sleep apnea type: unspecified type Qualified Code(s): G47.30 - Sleep apnea, unspecified Permanent problem details: On CPAP (11) History of orthostatic hypotension: Status: Acute (12) Altered mental status: Status: Acute Reason for Visit Reason for Visit: Low Hospital Course Hospital Course Ambrose Villa is a 78 year old male with past medical history of type 2 diabetes mellitus on insulin, hypertension, COPD, CAD, systolic congestive heart failure with last known EF of 40% presents to the ER today because of confusion and blacking out. Patient lives by himself. On examination when seen in the ICU patient is awake and alert. He states last thing he remembers is 12:00 at night when he went to bed and next thing he remembers is 12:00 in the afternoon today when he is found himself in the hospital. Patient states he has been having difficulty in breathing feeling his chest is congested for last 4 to 5 days. He lives by himself but his girlfriend who visits him often also has been dealing with a viral bronchitis for last 1 week to 10 days. As per the patient he remembers checking his blood sugars at night which was found to be 40. He was confused so he kept giving himself more insulin overnight thinking his blood sugars will improve. In the ER when he was seen he was found to be hypothermic, hypotensive, hypokalemic, confused, hypoglycemic. He received a dose of 500 of meropenem, 600 of linezolid, 40 of IV potassium, 2 L of IV fluid bolus. On examination patient is awake and alert x 3, saturating more than 95% on 2 L, blood pressure of 110 systolic with a pulse of 70 with caregiver at bedside He was admitted to the ICU given concerns for sepsis due to significant hypokalemia hypothermia, hypoglycemia and hypotension on admission. You are started on broad-spectrum antibiotics, D5 fluids and insulin was withheld. He did not require vasopressors. During hospitalization his blood cultures remained negative. Patient's hypoglycemia resolved in 24 hours. It is believed his symptoms are most likely in setting of accidental overdose of Humalog due to confusion from viral bronchitis leading to COPD exacerbation and mild hypercapnia. His hospitalization was otherwise unremarkable. He is been discharged in hemodynamically stable condition on steroids taper as prescribed, oral cefdinir for 5 more days. Insulin dose were discussed in detail with the patient and he was advised to take Humalog as per sliding scale. He will continue to take Lantus at 16 units as before. Physical Exam Narrative: General: No acute distress, AO x3, chronically sick appearing, on nasal cannula HEENT: PERRLA, pupils bilaterally equal and reactive Chest: Bilateral bronchial breath sounds all over lung [place] with occasional rhonchi and coarse crackles CVS: S1-S2 regular, no murmurs, no tachycardia, no gallops, no rubs Abdomen: Soft, nontender, no organomegaly, bowel sounds present Neuro: No focal deficits, no facial deformity, AO x3, power 5/5 in all limbs Discharge Data Studies Completed and Pending Completed Studies During Hospitalization Category Date Time Status CT chest abdomen pelvis [CT chest abdpel w/*[id number] Cat Scan 10/06/24 14:42 Completed ] Stat XR chest 1V portable [id number] Stat Exams 10/06/24 13:33 Completed CV. echo complete* [id number] Routine Ultrasound 10/06/24 16:39 Completed Pending at discharge Category Date Time Status Blood Culture Stat Lab 10/06/24 11:45 Results Complete Blood Count w/Auto AM LABS Lab 10/09/24 04:00 Ordered Comprehensive Metabolic Panel AM LABS Lab 10/09/24 04:00 Ordered Magnesium AM LABS Lab 10/09/24 04:00 Ordered Phosphorus AM LABS Lab 10/09/24 04:00 Ordered Radiology Impressions Chest X-Ray 10/06/24 13:33 Impression: 1. Minimal patchy opacity at the left cardiophrenic angle which could represent atelectasis, pneumonia and/or edema. 2. Mild cardiomegaly. 3. Atherosclerosis. 4. Old right and left rib fractures. Chest/Abdomen/Pelvis CT 10/06/24 14:42 IMPRESSION: 1. No pneumonia. 2. Suspect early changes of pulmonary fibrosis and honeycombing at the LEFT lung base. 3. Atherosclerosis aorta with no aneurysm. 4. No evidence for acute cholecystitis. 5. Sigmoid diverticulosis. No evidence for acute diverticulitis. Short segment area of sigmoid narrowing and enhancement. No obstruction. Endoscopy may be beneficial for further evaluation of the sigmoid colon. 6. Prostate gland enlargement. 7. No ascites or adenopathy. 8. No renal obstruction. Microbiology 10/06/24 11:41 Blood Blood Culture - Preliminary NEGATIVE TO DATE 10/06/24 11:45 Blood Blood Culture - Preliminary NEGATIVE TO DATE Echocardiogram: CONCLUSIONS Normal LV size ejection fraction of 58%. Abnormal septal motion consistent with conduction abnormality. Mild-moderate mitral valve regurgitation. Mildly increased right atrial size. Thickened aortic valve. Trace to mild aortic valve regurgitation. Mild tricuspid valve regurgitation. Moderate pulmonary hypertension with an estimated pulmonary artery peak systolic pressure 57 mmHg There is no pericardial effusion. There are no intracardiac masses. Compared to the study from October 2023, there is significant improvement in the LV ejection fraction from 40% to 58% Dr Hansa Humphrey MD [facility] (Electronically Signed) Final Date: 07 October 2024 17:08 Laboratory Results WBC 10.75 10^3/uL (3.29-11.43) 10/08/24 04:25 Corrected WBC Cancelled 10/06/24 11:41 RBC 3.84 10^6/uL (3.85-5.65) L 10/08/24 04:25 Hgb 12.10 g/dL (11.27-16.99) 10/08/24 04:25 Hct 38.0 % (37-53) 10/08/24 04:25 MCV 99.0 fl (82-101) 10/08/24 04:25 MCH 31.5 pg (27-33) 10/08/24 04:25 MCHC 31.8 g/dL (30-55) 10/08/24 04:25 RDW 15.8 % (12.1-15.1) H 10/08/24 04:25 Plt Count 161 10^3/cmm (157-399) 10/08/24 04:25 MPV 11.6 fL (7.4-10.4) H 10/08/24 04:25 Gran % Cancelled 10/06/24 11:41 Neut % (Auto) 86.7 % 10/08/24 04:25 Lymph % (Auto) 8.1 % 10/08/24 04:25 [place] % (Auto) 4.4 % 10/08/24 04:25 Eos % (Auto) 0.0 % 10/08/24 04:25 Baso % (Auto) 0.2 % 10/08/24 04:25 Neut # (Auto) 9.33 10^3/uL (1.8-7.7) H 10/08/24 04:25 Lymph # (Auto) 0.9 10^3/uL (0.8-4.8) 10/08/24 04:25 [place] # (Auto) 0.5 10^3/uL (0.2-0.9) 10/08/24 04:25 Eos # (Auto) 0.0 10^3/uL (0.0-0.8) 10/08/24 04:25 Baso # (Auto) 0.0 10^3/uL (0.0-0.1) 10/08/24 04:25 Absolute Gran (auto) Cancelled 10/06/24 11:41 Nucleated RBC % (auto) 0 % 10/08/24 04:25 Nucleated RBCs # 0.0 /100WBC 10/08/24 04:25 Specimen Type Arterial 10/06/24 14:50 Sample Site Femoral, left 10/06/24 14:50 ABG pH 7.36 (7.35-7.45) 10/06/24 14:50 ABG pCO2 43.0 mmHg (35-45) 10/06/24 14:50 ABG pO2 70.7 mmHg (80.0-100.0) L 10/06/24 14:50 ABG PO2/FiO2 Ratio 220 10/06/24 14:50 ABG HCO3 24.5 mmol/L (22-26) 10/06/24 14:50 ABG O2 Saturation 95.1 10/06/24 14:50 ABG Base Excess -1.1 mmol/L (-2.0-2.0) 10/06/24 14:50 Mario Test N/a 10/06/24 14:50 A-a O2 Gradient 13.6 mmHg (5-10) H 10/06/24 14:50 Hematocrit 42.6 % (42-52) 10/06/24 14:50 Hgb O2 Saturation 93.0 % (95-100) L 10/06/24 14:50 Carboxyhemoglobin 1.2 %THgb (0.4-20.1) 10/06/24 14:50 Methemoglobin 1.0 % (0.4-1.5) 10/06/24 14:50 Total Hemoglobin 13.9 g/dL (14-18) L 10/06/24 14:50 Sodium 140.0 mmol/L (131-143) 10/06/24 14:50 Potassium 3.5 mmol/L (3.5-5.0) 10/06/24 14:50 Glucose 120.0 mg/dL (70-115) H 10/06/24 14:50 Ionized Calcium 1.2 mmol/L (1.1-1.4) 10/06/24 14:50 O2 Delivery Device Nc 10/06/24 14:50 O2 Liters/Min 3.0 % 10/06/24 14:50 FiO2 32.0 % 10/06/24 14:50 Hotel Or Motel Receptionist ID glc 10/06/24 14:50 Sodium 142 mmol/L (136-145) 10/08/24 04:25 Potassium 4.5 mmol/L (3.5-5.1) 10/08/24 04:25 Chloride 108 mmol/L (98-107) H 10/08/24 04:25 Carbon Dioxide 22 mmol/L (22-29) 10/08/24 04:25 Anion Gap 16.5 (5-19) 10/08/24 04:25 BUN 30 mg/dL (8-23) H 10/08/24 04:25 Creatinine 1.6 mg/dL (0.7-1.2) H 10/08/24 04:25 GFR Calculation Not Reportable 10/08/24 04:25 Glucose 189 mg/dL (65-115) H 10/08/24 04:25 POC Glucose 178 mg/dL (70-110) H 10/08/24 06:45 Estimat Average Glucose 134 10/06/24 18:32 Hemoglobin A1c 6.3 % (4.0-6.0) H 10/06/24 18:32 Calculated Osmolality 305 mOsm/kg (285-295) H 10/08/24 04:25 Lactic Acid 2.7 mmol/L (0.5-2.2) H 10/06/24 12:59 Lactic Acid (Sepsis) 2.0 mmol/L (0.5-2.2) 10/06/24 18: Calcium 9.0 mg/dL (8.5-10.5) 10/08/24 04:25 Phosphorus 3.4 mg/dL (2.5-4.5) 10/08/24 04:25 Magnesium 2.0 mg/dL (1.7-2.3) 10/08/24 04:25 Iron 30 ug/dL (59-158) L 10/06/24 18:32 TIBC 275 mcg/dl 10/06/24 18:32 % Saturation 10.9 % (20-50) L 10/06/24 18: Unsat Iron Binding 245 ug/dL (112-347) 10/06/24 18:32 Total Bilirubin 0.3 mg/dL (0.15-1.2) 10/08/24 04:25 AST 20 U/L (0-40) 10/08/24 04:25 ALT 14 U/L (0-41) 10/08/24 04:25 Alkaline Phosphatase 64 U/L (40-130) 10/08/24 04:25 Total Protein 6.2 g/dL (6.6-8.7) L 10/08/24 04:25 Albumin 3.5 g/dL (3.5-5.2) 10/08/24 04:25 Globulin 2.7 g/dL (1.3-4.6) 10/08/24 04:25 Triglycerides 36 mg/dL (0-150) 10/07/24 03:18 Cholesterol 117 mg/dL (0-200) 10/07/24 03:18 LDL Cholesterol, Calc 62 mg/dL (50-129) 10/07/24 03:18 HDL Cholesterol 48 mg/dL (60-100) L 10/07/24 03:18 LDL/HDL Ratio 1.29 RATIO (0.00-3.22) 10/07/24 03:18 Cholesterol/HDL Ratio 2.44 mg/dL (1.0-5.00) 10/07/24 03:18 Vitamin B12 553 pg/mL (232-1245) 10/06/24 18:32 Folate 15.5 ng/mL (4.5-32.2) 10/07/24 03:18 Procalcitonin 0.25 ng/mL (0-0.5) 10/07/24 03:18 TSH 0.47 uIU/mL (0.27-4.20) 10/06/24 18:32 Random Cortisol 25.97 ug/dL (2.47-19.5) H 10/06/24 12:59 Urine Color Yellow (Yellow) 10/06/24 12:00 Urine Appearance Clear (CLEAR) 10/06/24 12:00 Urine pH 5.0 (5-7) 10/06/24 12:00 Ur Specific [place] 1.026 (1.005-1.030) 10/06/24 12:00 Urine Protein Trace (Negative) A 10/06/24 12:00 Urine Glucose (UA) 3+ (Normal) H 10/06/24 12:00 Urine Ketones Trace (Negative) 10/06/24 12:00 Urine Blood Negative (Negative) 10/06/24 12:00 Urine Nitrate Negative (Negative) 10/06/24 12:00 Urine Bilirubin Negative (Negative) 10/06/24 12:00 Urine Urobilinogen 1.0 mg/dL (Negative) 10/06/24 12:00 Ur Leukocyte Esterase Negative (Negative) 10/06/24 12:00 Urine RBC 0-2 /hpf (0-2) 10/06/24 12:00 Urine WBC 0-5 /hpf (0-5) 10/06/24 12:00 Ur Squamous Epith Cells 0-5 /hpf (0-5) 10/06/24 12:00 Calcium Oxalate Crystal 5-10 /hpf H 10/06/24 12:00 Amorphous Sediment Not Reportable 10/06/24 12:00 Urine Bacteria None seen /hpf (NONE) 10/06/24 12:00 Hyaline Casts 7.42 /lpf 10/06/24 12:00 Urine Yeast Trace /hpf 10/06/24 12:00 Ur Random Sodium 34 mmol/L 10/06/24 12:00 Ur Random Potassium 72 mmol/L 10/06/24 12:00 Ur Random Chloride 37 mmol/L 10/06/24 12:00 Nasal MRSA (PCR) Not detected (Negative) 10/06/24 17:07 Urine Opiates Screen Negative ng/mL (Negative) 10/06/24 12:00 Ur Barbiturates Screen Negative ng/mL (Negative) 10/06/24 12:00 Ur Phencyclidine Scrn Negative ng/mL (Negative) 10/06/24 12:00 Ur Amphetamines Screen Negative ng/mL (Negative) 10/06/24 12:00 U Benzodiazepines Scrn Negative ng/mL (Negative) 10/06/24 12:00 Urine Cocaine Screen Negative ng/mL (Negative) 10/06/24 12:00 U Marijuana (THC) Screen Negative ng/mL (Negative) 10/06/24 12:00 Adenovirus (PCR) Not detected (NOT DETECT) 10/06/24 17:07 C. pneumoniae DNA (PCR) Not detected (NOT DETECT) 10/06/24 17:07 Coronavirus 229E (PCR) Not detected (NOT DETECT) 10/06/24 17:07 Human Metapneumovir PCR Not detected (NOT DETECT) 10/06/24 17:07 Influenza A (H1) PCR Not detected (NOT DETECT) 10/06/24 17:07 Influenza A (PCR) Negative (Negative) 10/06/24 12:05 Influ A (H1/09) PCR Not detected (NOT DETECT) 10/06/24 17:07 Influenza A (H3) PCR Not detected (NOT DETECT) 10/06/24 17:07 Influenza Type A (PCR) Not detected (NOT DETECT) 10/06/24 17:07 Influenza Type B (PCR) Not detected (NOT DETECT) 10/06/24 17:07 M. pneumoniae (PCR) Not detected (NOT DETECT) 10/06/24 17:07 Parainfluenza 1 (PCR) Not detected (NOT DETECT) 10/06/24 17:07 Parainfluenza 2 (PCR) Not detected (NOT DETECT) 10/06/24 17:07 Parainfluenza 3 (PCR) Not detected (NOT DETECT) 10/06/24 17:07 Parainfluenza 4 (PCR) Not detected (NOT DETECT) 10/06/24 17:07 RSV (PCR) Negative (Negative) 10/06/24 12:05 RSV Type A (PCR) Not detected (NOT DETECT) 10/06/24 17:07 RSV Type B (PCR) Not detected (NOT DETECT) 10/06/24 17:07 Entero/Rhino (PCR) Not detected (NOT DETECT) 10/06/24 17:07 SARS-CoV-2 (PCR) Not detected (NOT DETECT) 10/06/24 17:07 Vitals Last Vital Signs Temp 98.3 F 10/08/24 07:20 Pulse 78 10/08/24 09:50 Resp 18 10/08/24 09:50 BP 111/67 10/08/24 07:20 Pulse Ox 93 10/08/24 09:50 O2 Del Method Nasal Cannula 10/08/24 09:50 O2 Flow Rate 3 10/08/24 09:50 Discharge Plan Discharge Patient Disposition: Home Condition: Stable Prescriptions: New prednisone 10 mg tablet See Taper PO DIRECTED Qty: 42 0RF Taper: predniSONE 60-10 60 mg Daily for 2 Days and 0 Hour 50 mg Daily for 2 Days and 0 Hour 40 mg Daily for 2 Days and 0 Hour 30 mg Daily for 2 Days and 0 Hour 20 mg Daily for 2 Days and 0 Hour 10 mg Daily for 2 Days and 0 Hour Rx Instructions: see taper instructions fluticasone furoate-vilanterol [Breo Ellipta] 100-25 mcg/dose blister with device 1 inh inhalation DAILY Qty: 60 0RF Spiriva Respimat 1.25 mcg/actuation mist 2 inh inhalation DAILY Qty: 4 0RF cefdinir 300 mg capsule 300 mg PO BID 5 Days Qty: 10 0RF Continued clopidogrel [Plavix] 75 mg tablet 75 mg PO DAILY atorvastatin 80 mg Tablet 80 mg PO QPM aspirin 81 mg Tablet,Chewable 81 mg PO DAILY folic acid 1 mg Tablet 1 mg PO DAILY Jardiance 25 mg Tablet 25 mg PO DAILY metoprolol succinate 25 mg tablet extended release 24 hr 25 mg PO DAILY Qty: 30 0RF furosemide 20 mg tablet 10 mg PO BID PRN (Reason: Edema) pioglitazone 30 mg Tablet 30 mg PO DAILY Changed insulin glargine [Lantus U-100 Insulin] 100 unit/mL solution 16 unit SUBCUT QAM Qty: 5 0RF insulin aspart U-100 [Novolog FlexPen U-100 Insulin] 100 unit/mL (3 mL) insulin pen See Protocol SUBCUT TID MDD 20 Qty: 15 0RF Protocol: Insulin Corrective High-Dose Regimen Condition: Fingerstick Blood Glucose Dose/Route: Insulin Units Condition: 141-180 mg/dl Dose/Route: 2 units/SQ Condition: 181-220 mg/dl Dose/Route: 4 units/SQ Condition: 221-260 mg/dl Dose/Route: 6 units/SQ Condition: 261-300 mg/dl Dose/Route: 8 units/SQ Condition: 301-350 mg/dl Dose/Route: 10 units/SQ Condition: 351-400 mg/dl Dose/Route: 12 units/SQ Condition: greater than 400 mg/dl Dose/Route: 14 units/SQ Rx Instructions: subcutaneously; Discharge Orders: Discharge Order (Routine); Ordered 10/08/24 Ordered By: Erick Rushing Referrals: Radha Blevins MD [Primary Care Provider] - (We have notified your physician's clinic of the need for a follow-up appointment to be scheduled. If you have not heard from them within the next 2 business days, please call them directly. ) Discharge Diet: Cardiac and Diabetic Discharge Activity: Resume usual activity and Increase activity as tolerated Patient Instructions: Prednisone (By mouth), Cefdinir (By mouth), Tiotropium (By breathing) (Spiriva, Spiriva Respimat), Fluticasone/Vilanterol (By breathing) (Breo Ellipta), Community Acquired Pneumonia (DC), Opioid Safety Activity Restrictions/Additional Instructions: Insulin sliding scale has been below If Fingerstick Blood Glucose, then Insulin Units; If 141-180 mg/dl, then 2 units/SQ; If 181-220 mg/dl, then 4 units/SQ; If 221-260 mg/dl, then 6 units/SQ; If 261-300 mg/dl, then 8 units/SQ; If 301-350 mg/dl, then 10 units/SQ; If 351-400 mg/dl, then 12 units/SQ; If greater than 400 mg/dl, then 14 units/SQ Take Lantus 16 units as before. Discharge Attestations Time Spent in Discharge Care*: greater than 30 min Specific Discharge Activities: educating patient, discussing with pcp/other providers, discussing with employment evaluator/case manager/social workers/dc planners, documenting/other paperwork and evaluating patient/reviewing data Status at Discharge: Cognitive status at discharge: cognitively intact, Behavioral status at discharge: cooperative, Functional status at discharge: independent ambulation, Overall status at discharge: patient is back to baseline Quality Metrics Clinical Quality Measures [ No reported AMI, CVA or VTE this stay] Coding Level of Care Code 34579 Total time (in minutes) for Discharge: 60 Diagnoses Sepsis A41.9 Acute hypotension I95.9 Hypoglycemia E16.2 Hypokalemia E87.6 Hypothermia T68.XXXA Chronic obstructive pulmonary disease, unspecified COPD type J44.9 COPD type: unspecified COPD Accidental overdose of insulin T38.3X1A Chronic combined systolic and diastolic congestive heart failure I50.42 Heart failure chronicity: chronic Heart failure type: combined systolic and diastolic Ischemic cardiomyopathy I25.5 Sleep apnea, unspecified type G47.30 Sleep apnea type: unspecified type History of orthostatic hypotension Z86.79 Altered mental status R41.82
== END 2024-10-08 12:06 | disposition home or self-care (01) | DRG 872 ==
LOC: ER 14:16 → ICU 15:18 → MEDSURG 10-07 16:31
PROVIDERS: Admitting Provider Student in an Organized Health Care Education/Training Program; Emergency Provider Emergency Medicine; PCP Family Medicine; Visit Provider Student in an Organized Health Care Education/Training Program
DX: A41.9 Sepsis, unspecified organism (principal); J44.0 Chronic obstructive pulmonary disease with (acute) lower respiratory infection; J44.1 Chronic obstructive pulmonary disease with (acute) exacerbation; I50.42 Chronic combined systolic (congestive) and diastolic (congestive) heart failure; I13.0 Hypertensive heart and chronic kidney disease with heart failure and stage 1 through stage 4 chronic kidney disease, or unspecified chronic kidney disease; J96.11 Chronic respiratory failure with hypoxia; G93.49 Other encephalopathy; T38.3X1A Poisoning by insulin and oral hypoglycemic [antidiabetic] drugs, accidental (unintentional), initial encounter; E11.649 Type 2 diabetes mellitus with hypoglycemia without coma; E87.6 Hypokalemia; J20.9 Acute bronchitis, unspecified; T68.XXXA Hypothermia, initial encounter; I95.9 Hypotension, unspecified; I25.5 Ischemic cardiomyopathy; G47.30 Sleep apnea, unspecified; Z99.89 Dependence on other enabling machines and devices; I35.0 Nonrheumatic aortic (valve) stenosis; I25.10 Atherosclerotic heart disease of native coronary artery without angina pectoris; E11.22 Type 2 diabetes mellitus with diabetic chronic kidney disease; N18.9 Chronic kidney disease, unspecified; E11.40 Type 2 diabetes mellitus with diabetic neuropathy, unspecified; E78.00 Pure hypercholesterolemia, unspecified; Z87.891 Personal history of nicotine dependence; Z95.1 Presence of aortocoronary bypass graft; Z79.02 Long term (current) use of antithrombotics/antiplatelets; Z79.82 Long term (current) use of aspirin; Z79.4 Long term (current) use of insulin; Z79.84 Long term (current) use of oral hypoglycemic drugs; Z88.0 Allergy status to penicillin
CPT/HCPCS: 36415; 36416; 36600; 71045; 71260; 74177; 80048; 80051; 80053; 80061; 80306; 81001; 82330; 82436; 82533; 82607; 82746; 82805; 82962; 83036; 83540; 83550; 83605; 83735; 84100; 84133; 84145; 84300; 84443; 85025; 87040; 87486; 87581; 87633; 87637; 93005; 93306; 94640; 94660; 94664; 96365; 96366; 96367; 96372; 96375; 99285; J1644; J1815; J2020; J2185; J2470; J2919; J3372; J3480; J7030; J7042; J7626; J7799; J9999

== ENCOUNTER → 2024-10-15 10:06 | Outpatient (BNVA) | payer OTHER, SELFPAY | PROVIDERS: PCP Family Medicine; Visit Provider Nurse Practitioner | DX: M17.0 Bilateral primary osteoarthritis of knee (principal); Z71.89 Other specified counseling | CPT/HCPCS: 20610; J1100; J2795; J3301; J9999 ==

== ENCOUNTER 2024-10-22 09:01 | Emergency (ER) | payer OTHER, MEDICARE, SELFPAY ==
[2024-10-22 09:17] VITALS: BP 107/54; PULSE 73; RESP 18; TEMP 36.6; O2SAT 82; BMI 33.6
--- NOTE | 2024-10-22 09:17 | XR_ITS ---
WS: [id number] Portable AP upright chest, 10/22/2024 Clinical Data: leg swelling Comparison: Portable chest, 10/06/2024 Findings: There is a patchy opacity in the left lower lobe unchanged. No nodules, masses or effusions are seen. The heart is enlarged. The pulmonary vascularity is not increased. No pneumonia or pneumothorax is seen. The aortic arch shows calcification and tortuosity. There are midline sternotomy sutures. There are old right fifth through eighth rib fractures and old left anterior third through fifth rib fractures. The anterior left rib fractures are fixed with small plates and screws. XR/XR chest 1V portable [id number] Impression: 1. Left lower lobe patchy opacity unchanged. 2. Atherosclerosis and cardiomegaly. 3. Old right and left rib fractures.
--- NOTE | 2024-10-22 09:21 | ECG_ITS ---
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 Measurements Intervals [place] Rate: 67 P: 50 [place]: 168 QRS: -69 QRSD: 124 T: 14 QT: 414 QTc: 439 Interpretive Statements SINUS RHYTHM LEFT ANTERIOR FASCICULAR BLOCK [QRS AXIS <= -45, QR IN I, RS IN II] POSSIBLE ANTERIOR MYOCARDIAL INFARCTION , PROBABLY OLD [30 ms Q WAVE IN V3/V4, OR R < 0.2 mV IN V4] Compared to ECG 10/06/2024 11:27:08 Left anterior fascicular block now present Myocardial infarct finding now present Ventricular premature complex(es) no longer present Intraventricular conduction delay no longer present Electronically Signed On 10-25-2024 09:27:26 CDT by Nicholas Gregg M.D. [id number]
--- NOTE | 2024-10-22 09:27 | W.ED.EXTPRO ---
HPI - Extremity Problem General: Chief complaint: Extremity Problem,Nontraumatic Stated complaint: retaining fluid in legs Time Seen by Provider: 10/22/24 09:17 Source: patient Mode of arrival: ambulatory Limitations: no limitations History of Present Illness: Patient is a 78-year-old male with a history of insulin-dependent diabetes, COPD and chronic hypoxemic respiratory failure on oxygen usually only at night, chronic kidney disease, coronary artery disease, and congestive heart failure here for complaints of leg swelling and shortness of breath. Patient states he was just admitted to the hospital due to an accidental insulin overdose. He states he was pumped full of fluids and feels like since then his legs have been swollen. He was just discharged last week. Patient also has noticed some redness to his right lower leg and a small wound ulcer forming. Patient states with his chronic COPD, his oxygen normally runs anywhere from 88 to low 90s without oxygen. He states he normally only wears oxygen at night. He was reportedly satting 82 to 83% on room air upon arrival here. Patient states he does take furosemide 20mg daily for his CHF. Tour Actor is Dr. Humphrey. Complaint: extremity swelling Onset (ago): day(s) Pain Consistency: constant Location: left, right and lower extremity Radiation: none Relieving factors: nothing Exacerbating factors: nothing Associated symptoms: Reports short of breath; Deny chest pain or fever(s) Related Data Home Medications ?Medication ?Instructions ?Recorded ?Confirmed clopidogrel 75 mg tablet (Plavix) 75 mg PO DAILY 08/02/21 10/22/24 aspirin 81 mg chewable tablet 81 mg PO DAILY 02/18/24 10/22/24 atorvastatin 80 mg tablet 80 mg PO QPM 02/18/24 10/22/24 empagliflozin 25 mg tablet 25 mg PO DAILY 02/18/24 10/22/24 (Jardiance) folic acid 1 mg tablet 1 mg PO DAILY 02/18/24 10/22/24 furosemide 20 mg tablet 10 mg PO BID PRN Edema 04/29/24 10/22/24 pioglitazone 30 mg tablet 30 mg PO DAILY 10/06/24 10/22/24 diclofenac sodium 1 % topical gel 2 g topical QID 10/22/24 10/22/24 omega 1-pba-whb-fish oil 1,000 mg 1 cap PO BID 05/02/25 05/02/25 (120 mg-180 mg) capsule (Fish Oil) Previous Rx's ?Medication ?Instructions ?Recorded metoprolol succinate 25 mg 25 mg PO DAILY #30 tabs 02/19/24 tablet,extended release 24 hr fluticasone furoate 100 1 inh inhalation DAILY #60 ea 10/08/24 mcg-vilanterol 25 mcg/dose inhalation powder (Breo Ellipta) insulin aspart U-100 100 unit/mL See Protocol SUBCUT TID #15 mL 10/08/24 (3 mL) subcutaneous pen (Novolog FlexPen U-100 Insulin aspart) insulin glargine 100 unit/mL 16 unit (0.16 mL) SUBCUT QAM #5 mL 10/08/24 subcutaneous solution (Lantus U-100 Insulin) tiotropium bromide 1.25 2 inh inhalation DAILY #4 grams 10/08/24 mcg/actuation mist for inhalation (Spiriva Respimat) doxycycline monohydrate 100 mg 100 mg PO Q12H 7 days #14 caps 10/22/24 capsule furosemide 40 mg tablet 40 mg PO BID 3 days #6 tabs 10/22/24 Allergies Allergy/AdvReac Type Severity Reaction Status Date / Time Penicillins Allergy ALGY-Difficulty Verified 10/15/24 10:13 Breathing Review of Systems Const: Denies: fever(s), chills, body aches, fatigue or malaise Card: Reports: edema and swelling of feet/ankles; Denies: chest pain, palpitations, irregular heart rhythm, lightheadedness, syncope or pre-syncope Resp: Reports: dyspnea; Denies: productive cough, non-productive cough or chest congestion GI: Denies: abdominal pain Musc: Reports: extremity swelling; Denies: extremity pain, joint pain, joint swelling or joint redness Skin/Breast: Reports: erythema (R lower leg) Neuro: Denies: headache(s), numbness in extremities, weakness in extremities, sensory changes or difficulty walking PFSH ED PFSH: Medical History Hydronephrosis, right Right nephrolithiasis 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 Atherosclerosis of coronary artery of [place] heart without angina pectoris Non-ST elevated myocardial infarction COPD with hypoxia Chronic kidney disease Renal calculi Moderate aortic stenosis by prior echocardiogram Coronary artery disease CABG x 4 in 2012, history of sternal nonunion. 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 Complicating treatment of stones Uric acid urolithiasis Hx of chest wall injury COPD (chronic obstructive pulmonary disease) Chronically on 3 L of oxygen Congestive heart failure Moderate aortic stenosis last echocardiogram Diabetes type 2, uncontrolled Sleep apnea On CPAP On home O2 History of kidney stones High cholesterol Neuropathy Surgical History S/P CABG (coronary artery bypass graft) Status post placement of ureteral stent History of quadruple bypass Hx of lithotripsy Family History Mother , at age 76 COPD (chronic obstructive pulmonary disease) Father , at age 68-aortic aneurysm No problems noted. Social History Smoking and tobacco/nicotine status: former use of tobacco/nicotine Alcohol intake: former Substance/Drug Use: never Marital status: Current occupational status: retired Current gender identity: Male Physical Exam Const: COMMON NORMALS: no acute distress, patient oriented x3, no limitations, alert and well nourished GENERAL APPEARANCE: cooperative ORIENTATION/CONSCIOUSNESS: Yes awake, Yes oriented to person, Yes oriented to place and Yes oriented to time HENMT: COMMON NORMALS: normocephalic and atraumatic HEAD & SCALP: normal to inspection, normocephalic and atraumatic Neck/C-Spine: COMMON NORMALS: full ROM, no lymphadenopathy, supple, no meningeal signs and no JVD Chest: COMMONS NORMALS: normal inspection of the chest Resp: COMMON NORMALS: normal respiratory effort and clear to auscultation bilaterally AUSCULTATION: clear to auscultation bilaterally Cardio: COMMON NORMALS: no JVD, regular rate and regular rhythm RATE: regular rate RHYTHM: regular rhythm GI: COMMON NORMALS: Normal to inspection, nondistended, normoactive bowel sounds present, Soft to palpation, non-tender, No hepatosplenomegaly present and no masses PALPATION: Yes Soft to palpation and Yes No hepatosplenomegaly present : COMMON NORMALS: Yes no CVA tenderness BLADDER/KIDNEY EXAM: Yes no CVA tenderness Back/Pelvis: COMMON NORMALS: no CVA tenderness and thoracic and lumbar spine normal to inspection Extremity: COMMON NORMALS: full ROM, capillary refill normal and no calf tenderness NARRATIVE EXTREMITY EXAM: bilateral 1+ pitting edema erythema affecting R lower leg; no overly warm to the touch; no streaking; small 1cm shallow ulcer forming to lateral aspect of lower leg GENERAL: Yes normal exam except as noted Neuro: COMMON NORMALS: patient oriented x3, moves all extremities, no focal motor deficits, no sensory deficits noted and gait normal SENSORIUM/ORIENTATION: Yes alert, Yes oriented to person, Yes oriented to place and Yes oriented to time MENINGEAL SIGNS: Yes no meningeal signs Skin: COMMON NORMALS: no rashes or lesions noted NARRATIVE SKIN EXAM: see above GENERAL SKIN EXAM: no rashes or lesions noted Course Vital Signs: Vital signs: Vital Signs Temperature 97.9 F 10/22/24 09:17 Pulse Rate 65 10/22/24 09:48 Respiratory Rate 18 10/22/24 09:17 Blood Pressure 107/54 10/22/24 09:48 Pulse Oximetry 95 10/22/24 09:48 Oxygen Delivery Me thod Room Air 10/22/24 09:48 MDM - Extremity (Nontraumatic) Medical Decision Making Patient is a very nice 78-year-old male here for lower leg edema following his last hospitalization stating he was pumped full of fluids . He has a known history of CHF. Last echocardiogram performed last month showing significant improvement in his EF from 40% to 58%. Patient takes furosemide 10mg twice daily. Tour Actor is Dr. Humphrey. Patient has chronic COPD with chronic dyspnea. He normally wears oxygen at night. He was hypoxic without his oxygen upon arrival here however he was weaned down to room air while at rest and satting at 95%. He has pitting edema to his bilateral lower extremities but no crackles on lung auscultation. CXR does not show evidence of fluid overload. He does have an unchanged opacity to his left lower lobe. [facility] Blood work overall nonactionable. His BNP is significantly elevated from baseline at 4800. Baseline troponin elevated because of this. Negative delta. He has no complaints of chest pain. EKGs are nonischemic. He is adamant he does not want to stay in the hospital as he was just recently hospitalized. He was given a dose of IV Lasix here in the ED and had a really good urine output at time of discharge. Will increase his furosemide over the next 72 hours and get him close follow-up with his tobacco sweeper. Return to ED precautions discussed. Patient also had redness involving his right lower extremity. This was ultrasounded and negative for DVT. Will place him on antibiotics for possible cellulitis. Medical Records I reviewed the patient's medical records. Lab Data I reviewed the patient's lab results. 10/22/24 09:26 10/22/24 09:26 Radiology Impressions Chest X-Ray 10/22/24 09:17 Impression: 1. Left lower lobe patchy opacity unchanged. 2. Atherosclerosis and cardiomegaly. 3. Old right and left rib fractures. Laboratory Results WBC 12.36 10^3/uL (3.29-11.43) H 10/22/24 09: RBC 4.33 10^6/uL (3.85-5.65) 10/22/24 09: Hgb 13.80 g/dL (11.27-16.99) 10/22/24 09: Hct 43.2 % (37-53) 10/22/24 09: MCV 99.8 fl (82-101) 10/22/24 09: MCH 31.9 pg (27-33) 10/22/24 09: MCHC 31.9 g/dL (30-55) 10/22/24 09: RDW 16.0 % (12.1-15.1) H 10/22/24 09: Plt Count 119 10^3/cmm (157-399) L 10/22/24 09: MPV 11.2 fL (7.4-10.4) H 10/22/24 09:26 Neut % (Auto) 84.9 % 10/22/24 09: Lymph % (Auto) 9.5 % 10/22/24 09: [place] % (Auto) 4.4 % 10/22/24 09: Eos % (Auto) 0.3 % 10/22/24 09:26 Baso % (Auto) 0.2 % 10/22/24 09: Neut # (Auto) 10.48 10^3/uL (1.8-7.7) H 10/22/24 09:26 Lymph # (Auto) 1.2 10^3/uL (0.8-4.8) 10/22/24 09:26 [place] # (Auto) 0.6 10^3/uL (0.2-0.9) 10/22/24 09:26 Eos # (Auto) 0.0 10^3/uL (0.0-0.8) 10/22/24 09:26 Baso # (Auto) 0.0 10^3/uL (0.0-0.1) 10/22/24 09:26 Nucleated RBC % (auto) 0 % 10/22/24 09: Nucleated RBCs # 0.0 /100WBC 10/22/24 09: Sodium 140 mmol/L (136-145) 10/22/24 09: Potassium 4.3 mmol/L (3.5-5.1) 10/22/24 09: Chloride 103 mmol/L (98-107) 10/22/24 09: Carbon Dioxide 26 mmol/L (22-29) 10/22/24 09: Anion Gap 15.3 (5-19) 10/22/24 09:26 BUN 23 mg/dL (8-23) 10/22/24 09: Creatinine 1.2 mg/dL (0.7-1.2) 10/22/24 09:26 GFR Calculation Not Reportable 10/22/24 09: Glucose 209 mg/dL (65-115) H 10/22/24 09:26 Calculated Osmolality 300 mOsm/kg (285-295) H 10/22/24 09:26 Calcium 9.1 mg/dL (8.5-10.5) 10/22/24 09: Total Bilirubin 0.9 mg/dL (0.15-1.2) 10/22/24 09:26 AST 20 U/L (0-40) 10/22/24 09: ALT 25 U/L (0-41) 10/22/24 09:26 Alkaline Phosphatase 65 U/L (40-130) 10/22/24 09:26 Troponin T Baseline 46 ng/L (0-15) H 10/22/24 09:26 Troponin T 120 Minute 41.50 ng/L (0-15) H 10/22/24 11:11 Delta Troponin T -4.50 ABS# (0-10) L 10/22/24 11:11 NT-Pro-B Natriuret Pep 4834 pg/mL (0-450) H 10/22/24 09:26 Total Protein 6.2 g/dL (6.6-8.7) L 10/22/24 09:26 Albumin 3.4 g/dL (3.5-5.2) L 10/22/24 09:26 Globulin 2.8 g/dL (1.3-4.6) 10/22/24 09:26 All radiology interpretation(s) finalized by discharge Discharge Plan Discharge Patient Disposition: Home Clinical Impression: Acute on chronic clinical systolic heart failure, Cellulitis of right leg Condition: Stable Prescriptions: New furosemide 40 mg tablet 40 mg PO BID 3 Days Qty: 6 0RF doxycycline monohydrate 100 mg capsule 100 mg PO Q12H 7 Days Qty: 14 0RF No Action clopidogrel [Plavix] 75 mg tablet 75 mg PO DAILY atorvastatin 80 mg Tablet 80 mg PO QPM aspirin 81 mg Tablet,Chewable 81 mg PO DAILY folic acid 1 mg Tablet 1 mg PO DAILY Jardiance 25 mg Tablet 25 mg PO DAILY metoprolol succinate 25 mg tablet extended release 24 hr 25 mg PO DAILY Qty: 30 0RF furosemide 20 mg tablet 10 mg PO BID PRN (Reason: Edema) pioglitazone 30 mg Tablet 30 mg PO DAILY fluticasone furoate-vilanterol [Breo Ellipta] 100-25 mcg/dose blister with device 1 inh inhalation DAILY Qty: 60 0RF Spiriva Respimat 1.25 mcg/actuation mist 2 inh inhalation DAILY Qty: 4 0RF insulin glargine [Lantus U-100 Insulin] 100 unit/mL solution 16 unit SUBCUT QAM Qty: 5 0RF insulin aspart U-100 [Novolog FlexPen U-100 Insulin] 100 unit/mL (3 mL) insulin pen See Protocol SUBCUT TID MDD 20 Qty: 15 0RF Protocol: Insulin Corrective High-Dose Regimen Condition: Fingerstick Blood Glucose Dose/Route: Insulin Units Condition: 141-180 mg/dl Dose/Route: 2 units/SQ Condition: 181-220 mg/dl Dose/Route: 4 units/SQ Condition: 221-260 mg/dl Dose/Route: 6 units/SQ Condition: 261-300 mg/dl Dose/Route: 8 units/SQ Condition: 301-350 mg/dl Dose/Route: 10 units/SQ Condition: 351-400 mg/dl Dose/Route: 12 units/SQ Condition: greater than 400 mg/dl Dose/Route: 14 units/SQ Rx Instructions: subcutaneously; diclofenac sodium 1 % Gel 2 g TOPICAL QID Rx Instructions: apply to single elbow, wrist or hand; for hand includes palm/fingers/back of hand omega 7-tcg-jks-fish oil [Fish Oil] 1,000 (120-180) mg Capsule 1 cap PO BID Discharge Orders: Discharge ED (Routine); Ordered 10/22/24 Ordered By: Sommer Negron Referrals: Radha Blevins MD [Primary Care Provider, [facility]] Patient Instructions: Heart Failure (DC), Leg Edema (ED) Activity Restrictions/Additional Instructions: As we discussed, we are increasing the dose of your furosemide over the next 3 days. Hold your normal 10mg tablet and take the 40mg twice daily instead. Once this is complete you may resume your normal 10mg tab as prescribed. Case management should reach out to you shortly to help set you up with a follow-up cardiology appointment. You need to return to the emergency department for onset of worsening shortness of breath, difficulty breathing, worsening leg swelling, weight gain, or any other concerns you may have. Print Language: Greenlandic Coding Level of Care Code ED Dupligraph Operator for Adelaida Hayes
--- NOTE | 2024-10-22 09:29 | USCV_ITS ---
JrAmbrose ledesma Age: 78 Gender: M : 1945 Exam Date: 10/22/2024 10:22 Ordering Phys: Sommer Negron Technologist: USR Exam Location: [facility] [place] Indication: RIGHT CALF SWELLING HISTORY: RIGHT lower extremity swelling. PROCEDURES: Venous duplex imaging was performed in only the right lower extremity. The following venous structures were evaluated: common femoral vein, profunda vein, proximal portion of the greater saphenous vein, superficial femoral vein, and the popliteal vein. In addition, the posterior tibial and peroneal trunk were evaluated. FINDINGS: No evidence of DVT seen in any vessel visualized at this time. CONCLUSIONS No evidence of right lower extremity DVT. Lucas Llamas MD (Electronically Signed) Final Date: 22 Oct 2024 10:48 S
[2024-10-22 09:33] LABS: Basophils % 0.2 %; Eosinophils % 0.3 %; Hematocrit 43.2 % (37-53); Lymphocytes # 1.2 10^3/uL (0.8-4.8); Lymphocytes % 9.5 %; Mean Corpuscular HGB Conc 31.9 g/dL (30-55); Mean Corpuscular Hemoglobin 31.9 pg (27-33); Mean Corpuscular Volume 99.8 fl (82-101); Mean Platelet Volume 11.2 fL (7.4-10.4); Monocytes # 0.6 10^3/uL (0.2-0.9); Monocytes % 4.4 %; Neutrophils # 10.48 10^3/uL (1.8-7.7); Neutrophils % 84.9 %; Nucleated Red Blood Cells % 0 %; Platelet Count 119 10^3/cmm (157-399); Red Blood Count 4.33 10^6/uL (3.85-5.65); White Blood Count 12.36 10^3/uL (3.29-11.43)
[2024-10-22 09:48] VITALS: BP 107/54; PULSE 65; O2SAT 95
[2024-10-22 09:52] LABS: Alanine Aminotransferase 25 U/L (0-41); Albumin Level 3.4 g/dL (3.5-5.2); Alkaline Phosphatase 65 U/L (40-130); Anion Gap 15.3 (5-19); Aspartate Amino Transferase 20 U/L (0-40); Blood Urea Nitrogen 23 mg/dL (8-23); Calcium 9.1 mg/dL (8.5-10.5); Carbon Dioxide 26 mmol/L (22-29); Chloride 103 mmol/L (98-107); Creatinine Clr Calc Pharmacy 58.2732; Globulin 2.8 g/dL (1.3-4.6); Glucose 209 mg/dL (65-115); Osmolality Calculated 300 mOsm/kg (285-295); Potassium 4.3 mmol/L (3.5-5.1); Sodium 140 mmol/L (136-145); Total Bilirubin 0.9 mg/dL (0.15-1.2); Total Protein 6.2 g/dL (6.6-8.7)
--- NOTE | 2024-10-22 09:59 | PC.PHAR ---
[facility] is [facility]. Pt was last seen 10/06/24-all meds verified at that time pt states nothing changed except provider added Prednisone taper dose. Pt has finished therapy. I went ahead and [facility]ed [facility] for [facility] for comparison, anyway.
[2024-10-22 10:04] LABS: Troponin(5th) Baseline 46 ng/L (0-15)
[2024-10-22 10:10] LABS: NT Pro B Type Natriuretic Pept 4834 pg/mL (0-450)
[2024-10-22] MEDS: FUROsemide 10 mg/mL SDV 10mL 60 MG IVP (10:30)
--- NOTE | 2024-10-22 11:21 | ECG_ITS ---
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 Measurements Intervals [place] Rate: 65 P: -18 [place]: 143 QRS: -61 QRSD: 118 T: 11 QT: 410 QTc: 427 Interpretive Statements SINUS RHYTHM POSSIBLE LEFT ATRIAL ENLARGEMENT [-0.1mV P-WAVE IN V1/V2] LEFT AXIS DEVIATION [QRS AXIS < -30] POSSIBLE ANTERIOR MYOCARDIAL INFARCTION , PROBABLY OLD [30 ms Q WAVE IN V3/V4, OR R < 0.2 mV IN V4] Compared to ECG 10/22/2024 09:37:10 Left-axis deviation now present Left anterior fascicular block no longer present Myocardial infarct finding still present Electronically Signed On 10-25-2024 10:32:46 CDT by Nicholas Gregg M.D. [email or web address] [id number]
[2024-10-22 12:31] VITALS: BP 134/65; PULSE 64; O2SAT 96
--- NOTE | 2024-10-22 18:27 | DCPLANNER ---
messaged heart care for er f/u
== END 2024-10-22 12:32 | disposition home or self-care (01) ==
PROVIDERS: Emergency Provider Physician Assistant; PCP Family Medicine
DX: L03.115 Cellulitis of right lower limb (principal); Z79.02 Long term (current) use of antithrombotics/antiplatelets; Z79.82 Long term (current) use of aspirin; Z79.4 Long term (current) use of insulin; Z87.891 Personal history of nicotine dependence; J44.9 Chronic obstructive pulmonary disease, unspecified; E11.22 Type 2 diabetes mellitus with diabetic chronic kidney disease; N18.9 Chronic kidney disease, unspecified; I50.23 Acute on chronic systolic (congestive) heart failure; Z95.1 Presence of aortocoronary bypass graft; I25.10 Atherosclerotic heart disease of native coronary artery without angina pectoris
CPT/HCPCS: 36415; 71045; 80053; 83880; 84484; 85025; 93005; 93971; 96374; 99285; J1938

== ENCOUNTER 2024-11-07 13:06 | Emergency (ER) | payer OTHER, SELFPAY ==
[2024-11-07 13:10] VITALS: BP 126/69; PULSE 95; RESP 20; TEMP 37.4; O2SAT 90; BMI 34.1
[2024-11-07 14:17] LABS: Basophils # 0.1 10^3/uL (0.0-0.1); Basophils % 0.5 %; Eosinophils # 0.2 10^3/uL (0.0-0.8); Eosinophils % 1.8 %; Hematocrit 44.1 % (37-53); Lymphocytes # 1.2 10^3/uL (0.8-4.8); Lymphocytes % 12.2 %; Mean Corpuscular HGB Conc 31.5 g/dL (30-55); Mean Corpuscular Hemoglobin 31.6 pg (27-33); Mean Corpuscular Volume 100.2 fl (82-101); Monocytes # 0.5 10^3/uL (0.2-0.9); Monocytes % 5.2 %; Neutrophils # 7.86 10^3/uL (1.8-7.7); Neutrophils % 79.7 %; Nucleated Red Blood Cells % 0 %; Platelet Count 173 10^3/cmm (157-399); Red Cell Distribution Width 16.6 % (12.1-15.1); White Blood Count 9.86 10^3/uL (3.29-11.43)
[2024-11-07 14:47] LABS: Alanine Aminotransferase 15 U/L (0-41); Albumin Level 3.6 g/dL (3.5-5.2); Alkaline Phosphatase 66 U/L (40-130); Anion Gap 12.8 (5-19); Aspartate Amino Transferase 18 U/L (0-40); Blood Urea Nitrogen 18 mg/dL (8-23); Carbon Dioxide 28 mmol/L (22-29); Chloride 102 mmol/L (98-107); Creatinine Clr Calc Pharmacy 58.6764; Globulin 2.8 g/dL (1.3-4.6); Glucose 124 mg/dL (65-115); NT Pro B Type Natriuretic Pept 1609 pg/mL (0-450); Osmolality Calculated 291 mOsm/kg (285-295); Potassium 3.8 mmol/L (3.5-5.1); Sodium 139 mmol/L (136-145); Total Bilirubin 0.9 mg/dL (0.15-1.2); Total Protein 6.4 g/dL (6.6-8.7)
--- NOTE | 2024-11-07 15:04 | USR_ITS ---
PROCEDURE INFORMATION: Exam: US Duplex Right Lower Extremity Veins, Limited Exam date and time: 11/07/2024 3:46 PM Age: 78 years old Clinical indication: Edema, localized; Lower extremity, right; Additional info: Leg swelling TECHNIQUE: Imaging protocol: Real-time duplex ultrasound of the right extremity with 2-D gutiérrez scale, color Doppler flow and spectral waveform analysis including responses to compression and other maneuvers (when performed) with image documentation. Limited exam was focused on the right lower extremity veins. COMPARISON: MR knee RT wo con* [id number] 09/23/2023 10:32 AM FINDINGS: Right deep veins: Unremarkable. The common femoral, femoral, proximal profunda femoral and popliteal veins are patent without thrombus. Normal Doppler waveforms. Normal compressibility and/or augmentation response. Superficial veins: Greater saphenous vein at the saphenofemoral junction is patent without thrombus. Soft tissues: Fluid collection in the popliteal fossa measures 2.9 x 0.8 x 2.1 cm consistent with a Mooney's cyst.. US/[place] [id number] IMPRESSION: 1. No evidence of deep vein thrombosis. 2. Mooney cyst in the popliteal fossa.
--- NOTE | 2024-11-07 15:09 | W.ED.EXTPRO ---
HPI - Extremity Problem General: Chief complaint: Extremity Problem,Nontraumatic Stated complaint: swelling in legs Time Seen by Provider: 11/07/24 14:52 Source: patient Mode of arrival: ambulatory Limitations: no limitations History of Present Illness: 78-year-old male states that he is admitted recently for lower extreme edema he had received Lasix states it did not improve he is been taking Lasix at home states his edema still is improved he started having some swelling mainly to his right leg with some redness to his right ankle is having some pain in that right leg as well. He denies any shortness of breath denies any fever Associated symptoms: Deny chest pain, fever(s) or rash Related Data Home Medications ?Medication ?Instructions ?Recorded ?Confirmed clopidogrel 75 mg tablet (Plavix) 75 mg PO DAILY 08/02/21 10/22/24 aspirin 81 mg chewable tablet 81 mg PO DAILY 02/18/24 10/22/24 atorvastatin 80 mg tablet 80 mg PO QPM 02/18/24 10/22/24 empagliflozin 25 mg tablet 25 mg PO DAILY 02/18/24 10/22/24 (Jardiance) folic acid 1 mg tablet 1 mg PO DAILY 02/18/24 10/22/24 furosemide 20 mg tablet 10 mg PO BID PRN Edema 04/29/24 10/22/24 pioglitazone 30 mg tablet 30 mg PO DAILY 10/06/24 10/22/24 diclofenac sodium 1 % topical gel 2 g topical QID 10/22/24 10/22/24 omega 4-wqx-ikc-fish oil 1,000 mg 1 cap PO BID 10/22/24 10/22/24 (120 mg-180 mg) capsule (Fish Oil) Previous Rx's ?Medication ?Instructions ?Recorded metoprolol succinate 25 mg 25 mg PO DAILY #30 tabs 02/19/24 tablet,extended release 24 hr fluticasone furoate 100 1 inh inhalation DAILY #60 ea 10/08/24 mcg-vilanterol 25 mcg/dose inhalation powder (Breo Ellipta) insulin aspart U-100 100 unit/mL See Protocol SUBCUT TID #15 mL 10/08/24 (3 mL) subcutaneous pen (Novolog FlexPen U-100 Insulin aspart) insulin glargine 100 unit/mL 16 unit (0.16 mL) SUBCUT QAM #5 mL 10/08/24 subcutaneous solution (Lantus U-100 Insulin) tiotropium bromide 1.25 2 inh inhalation DAILY #4 grams 10/08/24 mcg/actuation mist for inhalation (Spiriva Respimat) cephalexin 500 mg capsule 500 mg PO TID 7 days #21 caps 11/07/24 Allergies Allergy/AdvReac Type Severity Reaction Status Date / Time Penicillins Allergy ALGY-Difficulty Verified 10/15/24 10:13 Breathing Review of Systems Const: Denies: fever(s), chills, body aches or change in appetite ENMT: Denies: throat pain or dental pain Card: Denies: chest pain Resp: Denies: dyspnea GI: Denies: abdominal pain, nausea, vomiting or diarrhea Musc: Reports: extremity swelling; Denies: neck pain or back pain Skin/Breast: Denies: rash Neuro: Denies: headache(s) PFSH ED PFSH: Medical History Hydronephrosis, right Right nephrolithiasis 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 Atherosclerosis of coronary artery of [place] heart without angina pectoris Non-ST elevated myocardial infarction COPD with hypoxia Chronic kidney disease Renal calculi Moderate aortic stenosis by prior echocardiogram Coronary artery disease CABG x 4 in 2011, history of sternal nonunion. 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 Complicating treatment of stones Uric acid urolithiasis Hx of chest wall injury COPD (chronic obstructive pulmonary disease) Chronically on 3 L of oxygen Congestive heart failure Moderate aortic stenosis last echocardiogram Diabetes type 2, uncontrolled Sleep apnea On CPAP On home O2 History of kidney stones High cholesterol Neuropathy Surgical History S/P CABG (coronary artery bypass graft) Status post placement of ureteral stent History of quadruple bypass Hx of lithotripsy Family History Mother , at age 76 COPD (chronic obstructive pulmonary disease) Father , at age 68-aortic aneurysm No problems noted. Social History Smoking and tobacco/nicotine status: former use of tobacco/nicotine Alcohol intake: former Substance/Drug Use: never Marital status: Current occupational status: retired Current gender identity: Male Physical Exam Const: COMMON NORMALS: no acute distress, patient oriented x3 and healthy appearing HENMT: COMMON NORMALS: normocephalic and atraumatic HEAD & SCALP: normocephalic and atraumatic Neck/C-Spine: COMMON NORMALS: full ROM and supple Chest: COMMONS NORMALS: normal inspection of the chest Resp: COMMON NORMALS: normal respiratory effort Cardio: COMMON NORMALS: regular rate RATE: regular rate Extremity: NARRATIVE EXTREMITY EXAM: Erythema noted to right lower ankle with swelling to his right leg greater than the left distal pulses intact Neuro: COMMON NORMALS: patient oriented x3, moves all extremities and no focal motor deficits Psych: COMMON NORMALS: mental status grossly normal, Normal thought process present and cooperative THOUGHT PROCESS: Normal thought process present Skin: COMMON NORMALS: no rashes or lesions noted and no wounds GENERAL SKIN EXAM: no rashes or lesions noted Course Vital Signs: Vital signs: Vital Signs Temperature 99.3 F 11/07/24 13:10 Pulse Rate 95 11/07/24 13:10 Respiratory Rate 20 H 11/07/24 13:10 Blood Pressure 126/69 11/07/24 13:10 Pulse Oximetry 90 11/07/24 13:10 Oxygen Delivery Me thod Room Air 11/07/24 13:10 MDM - Extremity (Nontraumatic) Medical Decision Making Patient presents here with likely cellulitis to his right leg ultrasound showed no DVT as BNP is improved has no shortness of breath we will start him on antibiotics he is follow-up with PCP and return if worsening. Medical Records I reviewed the patient's medical records. Lab Data I reviewed the patient's lab results. 11/07/24 14:05 11/07/24 14:05 Laboratory Results WBC 9.86 10^3/uL (3.29-11.43) 11/07/24 14:05 RBC 4.40 10^6/uL (3.85-5.65) 11/07/24 14:05 Hgb 13.90 g/dL (11.27-16.99) 11/07/24 14:05 Hct 44.1 % (37-53) 11/07/24 14:05 MCV 100.2 fl (82-101) 11/07/24 14:05 MCH 31.6 pg (27-33) 11/07/24 14:05 MCHC 31.5 g/dL (30-55) 11/07/24 14:05 RDW 16.6 % (12.1-15.1) H 11/07/24 14:05 Plt Count 173 10^3/cmm (157-399) 11/07/24 14:05 MPV 10.0 fL (7.4-10.4) 11/07/24 14:05 Neut % (Auto) 79.7 % 11/07/24 14:05 Lymph % (Auto) 12.2 % 11/07/24 14:05 [place] % (Auto) 5.2 % 11/07/24 14:05 Eos % (Auto) 1.8 % 11/07/24 14:05 Baso % (Auto) 0.5 % 11/07/24 14:05 Neut # (Auto) 7.86 10^3/uL (1.8-7.7) H 11/07/24 14:05 Lymph # (Auto) 1.2 10^3/uL (0.8-4.8) 11/07/24 14:05 [place] # (Auto) 0.5 10^3/uL (0.2-0.9) 11/07/24 14:05 Eos # (Auto) 0.2 10^3/uL (0.0-0.8) 11/07/24 14:05 Baso # (Auto) 0.1 10^3/uL (0.0-0.1) 11/07/24 14:05 Nucleated RBC % (auto) 0 % 11/07/24 14:05 Nucleated RBCs # 0.0 /100WBC 11/07/24 14:05 Sodium 139 mmol/L (136-145) 11/07/24 14:05 Potassium 3.8 mmol/L (3.5-5.1) 11/07/24 14:05 Chloride 102 mmol/L (98-107) 11/07/24 14:05 Carbon Dioxide 28 mmol/L (22-29) 11/07/24 14:05 Anion Gap 12.8 (5-19) 11/07/24 14:05 BUN 18 mg/dL (8-23) 11/07/24 14:05 Creatinine 1.2 mg/dL (0.7-1.2) 11/07/24 14:05 GFR Calculation Not Reportable 11/07/24 14:05 Glucose 124 mg/dL (65-115) H 11/07/24 14:05 Calculated Osmolality 291 mOsm/kg (285-295) 11/07/24 14:05 Calcium 9.0 mg/dL (8.5-10.5) 11/07/24 14:05 Total Bilirubin 0.9 mg/dL (0.15-1.2) 11/07/24 14:05 AST 18 U/L (0-40) 11/07/24 14:05 ALT 15 U/L (0-41) 11/07/24 14:05 Alkaline Phosphatase 66 U/L (40-130) 11/07/24 14:05 NT-Pro-B Natriuret Pep 1609 pg/mL (0-450) H 11/07/24 14:05 Total Protein 6.4 g/dL (6.6-8.7) L 11/07/24 14:05 Albumin 3.6 g/dL (3.5-5.2) 11/07/24 14:05 Globulin 2.8 g/dL (1.3-4.6) 11/07/24 14:05 No radiology studies performed this visit Discharge Plan Discharge Patient Disposition: Home Clinical Impression: Cellulitis of leg, right Condition: Stable Prescriptions: New cephalexin 500 mg capsule 500 mg PO TID 7 Days Qty: 21 0RF No Action clopidogrel [Plavix] 75 mg tablet 75 mg PO DAILY atorvastatin 80 mg Tablet 80 mg PO QPM aspirin 81 mg Tablet,Chewable 81 mg PO DAILY folic acid 1 mg Tablet 1 mg PO DAILY Jardiance 25 mg Tablet 25 mg PO DAILY metoprolol succinate 25 mg tablet extended release 24 hr 25 mg PO DAILY Qty: 30 0RF furosemide 20 mg tablet 10 mg PO BID PRN (Reason: Edema) pioglitazone 30 mg Tablet 30 mg PO DAILY fluticasone furoate-vilanterol [Breo Ellipta] 100-25 mcg/dose blister with device 1 inh inhalation DAILY Qty: 60 0RF Spiriva Respimat 1.25 mcg/actuation mist 2 inh inhalation DAILY Qty: 4 0RF insulin glargine [Lantus U-100 Insulin] 100 unit/mL solution 16 unit SUBCUT QAM Qty: 5 0RF insulin aspart U-100 [Novolog FlexPen U-100 Insulin] 100 unit/mL (3 mL) insulin pen See Protocol SUBCUT TID MDD 20 Qty: 15 0RF Protocol: Insulin Corrective High-Dose Regimen Condition: Fingerstick Blood Glucose Dose/Route: Insulin Units Condition: 141-180 mg/dl Dose/Route: 2 units/SQ Condition: 181-220 mg/dl Dose/Route: 4 units/SQ Condition: 221-260 mg/dl Dose/Route: 6 units/SQ Condition: 261-300 mg/dl Dose/Route: 8 units/SQ Condition: 301-350 mg/dl Dose/Route: 10 units/SQ Condition: 351-400 mg/dl Dose/Route: 12 units/SQ Condition: greater than 400 mg/dl Dose/Route: 14 units/SQ Rx Instructions: subcutaneously; diclofenac sodium 1 % Gel 2 g TOPICAL QID Rx Instructions: apply to single elbow, wrist or hand; for hand includes palm/fingers/back of hand omega 1-oyv-swr-fish oil [Fish Oil] 1,000 (120-180) mg Capsule 1 cap PO BID Discharge Orders: Discharge ED (Routine); Ordered 11/07/24 Ordered By: Jordy Persaud Referrals: Radha Blevins MD [Primary Care Provider, Family Practice] - 4-7 days Discharge Diet: Advance as tolerated Discharge Activity: Resume usual activity Patient Instructions: Cellulitis (ED) Print Language: Yoruba Coding Level of Care Code ED Survey Party Chief for Adelaida Hayes
[2024-11-07 15:31] VITALS: BP 136/80; PULSE 68; O2SAT 97
[2024-11-07] MEDS: cefTRIAXone 1,000 MG in water for injection-sterile 2.1 ML 2.1 MG IM (15:40)
[2024-11-07 16:00] VITALS: BP 133/56; PULSE 75; O2SAT 96
[2024-11-07 16:28] VITALS: BP 144/75; PULSE 76; O2SAT 97
== END 2024-11-07 16:29 | disposition home or self-care (01) ==
PROVIDERS: Emergency Provider Emergency Medicine; PCP Family Medicine
DX: L03.115 Cellulitis of right lower limb (principal); R60.0 Localized edema; Z79.82 Long term (current) use of aspirin; Z79.4 Long term (current) use of insulin; Z87.891 Personal history of nicotine dependence; Z95.1 Presence of aortocoronary bypass graft; J44.9 Chronic obstructive pulmonary disease, unspecified; I25.10 Atherosclerotic heart disease of native coronary artery without angina pectoris; E11.22 Type 2 diabetes mellitus with diabetic chronic kidney disease; I13.0 Hypertensive heart and chronic kidney disease with heart failure and stage 1 through stage 4 chronic kidney disease, or unspecified chronic kidney disease; N18.9 Chronic kidney disease, unspecified; I50.9 Heart failure, unspecified
CPT/HCPCS: 36415; 80053; 83880; 85025; 93971; 96372; 99284; J0696

== ENCOUNTER → 2024-12-30 13:27 | Outpatient (BNVA) | payer OTHER, SELFPAY | PROVIDERS: PCP Family Medicine; Visit Provider Internal Medicine Cardiovascular Disease | DX: I25.10 Atherosclerotic heart disease of native coronary artery without angina pectoris (principal); Z79.02 Long term (current) use of antithrombotics/antiplatelets; I95.1 Orthostatic hypotension; I50.9 Heart failure, unspecified; E78.5 Hyperlipidemia, unspecified; R06.02 Shortness of breath; E11.65 Type 2 diabetes mellitus with hyperglycemia; Z79.4 Long term (current) use of insulin; Z95.1 Presence of aortocoronary bypass graft; Z87.891 Personal history of nicotine dependence; I25.2 Old myocardial infarction | CPT/HCPCS: 99214 ==

== ENCOUNTER → 2025-01-21 10:52 | Outpatient (BNVA) | payer OTHER, SELFPAY | PROVIDERS: PCP Family Medicine; Visit Provider Nurse Practitioner | DX: M17.0 Bilateral primary osteoarthritis of knee (principal); Z71.89 Other specified counseling | CPT/HCPCS: 20610; J1100; J2795; J3301; J9999 ==

== ENCOUNTER → 2025-04-22 09:50 | Outpatient (BNVA) | payer OTHER, SELFPAY | PROVIDERS: PCP Family Medicine; Visit Provider Nurse Practitioner | DX: M17.0 Bilateral primary osteoarthritis of knee (principal); Z71.89 Other specified counseling | CPT/HCPCS: 20610; 99213; J1100; J2795; J3301; J9999 ==

== ENCOUNTER 2025-05-10 05:00 | Inpatient (IN) | payer OTHER, SELFPAY ==
[2025-05-10] VITALS (60 sets, daily range): BP systolic 67–116; BP diastolic 36–64; PULSE 63–87; RESP 11–30; TEMP 36.4–36.9; O2SAT 88–97; BMI 34.4
--- NOTE | 2025-05-10 05:11 | XRR_ITS ---
PROCEDURE INFORMATION: Exam: XR Chest Exam date and time: 05/10/2025 5:38 AM Age: 79 years old Clinical indication: Pain; Angina pectoris; Prior surgery; Surgery date: 6+ months; Surgery type: Stent/bypass; Additional info: Cp TECHNIQUE: Imaging protocol: Radiologic exam of the chest. Views: 1 view. COMPARISON: CR XR chest 1V portable [id number] 10/22/2024 9:46 AM FINDINGS: Tubes, catheters and devices: Median sternotomy suture wires. Lungs: Mild chronic opacity at the left lung base. Pleural spaces: Unremarkable. No pleural effusion. No pneumothorax. Heart/Mediastinum: Unremarkable. No cardiomegaly. Bones/joints: ORIF of multiple left ribs. Numerous healed right rib fractures. XR/XR chest 1V portable [id number] IMPRESSION: No acute abnormality. The opacity at the left lung base is unchanged since 10/22/2024 and therefore presumably chronic.
--- OUTSIDE RECORDS SUMMARY | 2025-05-10 05:11 | XMS_ITS | Clinical Summary ---
Author Organization [facility] Address [address] [place] [address] Phone Care Team Providers Care Service Counselor Name Role Phone Sasha Min NP Primary Care Provider [phone] Allergies Active Allergy Reactions Criticality Noted Date Comments Penicillins Anaphylaxis High 08/02/2013 Medications furosemide (LASIX) 40 mg tabletIndication s:CAD (coronary artery disease) Take 40 mg by mouth daily. Active potassium chloride SR (KLOR-CON M20) 20 mEq tabletIndication s:CAD (coronary artery disease) Take 20 mEq by mouth daily. Active Metformin 1,000 mg Tablet,SR,[place].R etention,24 hrIndications:CA D (coronary artery disease) Take by mouth. Active aspirin (ECOTRIN EC) 81 mg Tablet, Delayed Release (E.C.)Indication s:CAD (coronary artery disease) Take 81 mg by mouth daily. Active metoprolol tartrate (LOPRESSOR) 25 mg tabletIndication s:CAD (coronary artery disease) Take 25 mg by mouth 2 times daily. Active atorvastatin (LIPITOR) 40 mg tabletIndication s:Pain Take 40 mg by mouth Daily LATE. Active magnesium oxide 400 mg CapsuleIndicatio ns:Pain Take by mouth. Active ergocalciferol (VITAMIN D2) 50,000 unit capsuleIndicatio ns:Pain Take 50,000 Units by mouth. Active glipiZIDE (GLUCOTROL) 5 mg tabletIndication s:Pain Take 5 mg by mouth daily with breakfast. Active Active Problems Problem Noted Date Diagnosed Date CAD (coronary artery disease) 02/04/2014 SOB (shortness of breath) 08/02/2013 Diabetes mellitus Family History Medical History Relation Name Comments Aneurysm Father COPD Mother Relation Name Status Comments Father Mother Social History Tobacco Use Types Packs/Day Years Used Date Smoking Tobacco: Former Cigarettes 2 10 0 06/23/1969 - 06/23/1979 Tobacco Cessation:Counseling Given: No Alcohol Use Standard Drinks/Week Comments No 0 (1 standard drink = 0.6 oz pur e alcohol) Sex and Gender Information Value Date Recorded Sex Assigned at Not on file 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 Gender Identity Not on file Sexual Orientation Not on file Occupation Industry Job Start Date Job End Date Not on file Not on file Not on file Not on file Last Filed Vital Signs Vital Sign Reading Time Taken Comments Blood Pressure 136/90 02/04/2014 10:05 AM CDT Pulse 84 02/04/2014 10:05 AM CDT Temperature - - Respiratory Rate - - Oxygen Saturation 94% 02/04/2014 10:05 AM CDT Inhaled Oxygen Concentration - - Weight 126.1 kg (278 lb) 02/04/2014 10:05 AM CDT Height 170.2 cm (5' 7 ) 02/04/2014 10:05 AM CDT Body Mass Index 43.54 02/04/2014 10:05 AM CDT Plan of Treatment Health Maintenance Due Date Last Done Comments DIABETES ANNUAL FOOT EXAM 11/12/1965 DIABETES ANNUAL RETINAL EXAM 11/12/1965 DIABETES HBA1C Q 6 MONTHS 11/12/1965 DIABETES MICROALBUMIN ANNUAL SCREEN 11/12/1965 LDL CHOLESTEROL ANNUAL 11/12/1965 DTAP/TDAP/TD VACCINES (1 - Tdap) 11/12/1966 PNEUMOCOCCAL VACCINE 50+ YEARS (1 of 2 - PCV) 11/12/18 67 ZOSTER VACCINE (1 of 2) 11/12/1997 RSV VACCINE (60+ or ) (1 - 1-dose 75+ series) 11/12/2022 INFLUENZA VACCINE (#1) [address]25 [address] [place] [address] PREFERRED CARE Care Teams Service Counselor Relationship Specialty Start Date End Date Sasha Min NP [facility] [place] [address] PCP - General NURSE PRACTITIONER 08/17/13
--- NOTE | 2025-05-10 05:12 | ECG_ITS ---
[facility]10 Pat Name: Ambrose Villa Department: Room: Gender: Male Sanitation Technician: : 1945 Requested By: Parmjit Stewart Order Number: [id number] Denice MD: Hansa Humphrey M.D. Measurements Intervals [place] Rate: 81 P: 45 CO: 171 QRS: -74 QRSD: 115 T: 47 QT: 386 QTc: 449 Interpretive Statements SINUS RHYTHM PATTERN CONSISTENT WITH PULMONARY DISEASE LEFT ANTERIOR FASCICULAR BLOCK [QRS AXIS <= -45, QR IN I, RS IN II] Compared to ECG 10/22/2024 11:58:56 Left anterior fascicular block now present Left-axis deviation no longer present Myocardial infarct finding no longer present Electronically Signed On 05-11-2025 08:52:53 INSULATOR CUTTER AND FORMER by Hansa Humphrey M.D. [email or web address]
--- OUTSIDE RECORDS SUMMARY | 2025-05-10 05:12 | XMS_ITS | Clinical Summary ---
Author Organization [facility] Address [address] Laurent: Epic Prelude ADT [place] [address] Care Team Providers Care Fox Farmer Name Role Phone Sasha Min NP Primary Care Provider [phone] Allergies Active Allergy Reactions Criticality Noted Date Comments Penicillins Anaphylaxis High 08/02/2013 Medications atorvastatin (LIPITOR) 40 mg tablet Take 40 mg by mouth late in the day. Active aspirin (ECOTRIN EC) 81 mg Tablet, Delayed Release (E.C.) Take 81 mg by mouth daily. Active ergocalciferol (VITAMIN D2) 50,000 unit capsule Take 50,000 Units by mouth daily. Active glipiZIDE (GLUCOTROL) 5 mg tablet Take 5 mg by mouth daily with breakfast. Active gabapentin (NEURONTIN) 300 mg capsule Take 300 mg by mouth 3 times daily. Active tamsulosin (FLOMAX) 0.4 mg capsule Take 0.4 mg by mouth daily. Active insulin glargine (LANTUS) 100 unit/mL injection Inject 50 Units by subcutaneous injection daily with breakfast. Active oxyCODONE (ROXICODONE) 5 mg tabletIndicatio ns:S/P CABG x 2 Take 0.5 Tablets (2.5 mg) by mouth every 4 hours as needed for Pain. Max Daily Amount: 15 mg 40 Tablet 1 Active oxygen home delivery Home Oxygen Concentrator yes at 3 L/M Rest, 4 L/M Activity, 4 L/M Sleep, Delivery Device: Nasal Cannula Portability: yes, 3 L/M Rest, 4 L/M Activity, May provide device best for patient needs(E system,home fill, conserving device) Length of Need: 99 months 1 Each Active Active Problems Problem Noted Date Diagnosed Date S/P CABG x 2 06/15/2021 Hx of coronary artery bypass graft 06/15/2021 Stage 3b chronic kidney disease 06/08/2021 NSTEMI (non-ST elevated myocardial infarction) 1 08/08/2020 Chest wall deformity 06/07/2021 Other emphysema 06/07/2021 Morbid obesity with body mass index of 40.0-49.9 06/07/2021 CAD (coronary artery disease) 02/04/2014 SOB (shortness of breath) 08/02/2013 Diabetes mellitus Encounters Date Type Department Care Team Description 05/03/2025 External Device Data [facility] ABSTRACTION Provider, Abstract from Last 3 Months Family History Medical History Relation Name Comments Aneurysm Father COPD Mother Relation Name Status Comments Father Mother Social History Tobacco Use Types Packs/Day Years Used Date Smoking Tobacco: Former Cigarettes Q uit: 06/23/1979 Alcohol Use Standard Drinks/Week Comments No 0 (1 standard drink = 0.6 oz pur e alcohol) Sex and Gender Information Value Date Recorded Sex Assigned at Not on file 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 Gender Identity Not on file Sexual Orientation Not on file Last Filed Vital Signs Vital Sign Reading Time Taken Comments Blood Pressure 100/60 07/10/2021 10:14 AM INVENTORY CONTROL ASSOCIATE Pulse 70 07/10/2021 10:14 AM INVENTORY CONTROL ASSOCIATE Temperature 36.3 C (97.4 F) 06/18/2021 11:29 AM INVENTORY CONTROL ASSOCIATE Respiratory Rate 21 06/18/2021 11:29 AM INVENTORY CONTROL ASSOCIATE Oxygen Saturation 97% 07/10/2021 10:14 AM INVENTORY CONTROL ASSOCIATE 4 LPM Inhaled Oxygen Concentration - - Weight 120.2 kg (265 lb) 07/10/2021 10:14 AM INVENTORY CONTROL ASSOCIATE Height 170.2 cm (5' 7 ) 07/10/2021 10:14 AM INVENTORY CONTROL ASSOCIATE Body Mass Index 41.5 07/10/2021 10:14 AM INVENTORY CONTROL ASSOCIATE Plan of Treatment Health Maintenance Due Date Last Done Comments DIABETES ANNUAL FOOT EXAM 11/12/1965 DIABETES ANNUAL RETINAL EXAM 11/12/1965 DIABETES MICROALBUMIN ANNUAL SCREEN 11/12/1965 DTAP/TDAP/TD VACCINES (1 - Tdap) 11/12/1966 PNEUMOCOCCAL VACCINE 50+ YEARS (1 of 2 - PCV) 05/23/19 67 ZOSTER VACCINE (1 of 2) 11/12/1997 DIABETES HBA1C Q 6 MONTHS 12/07/2021 06/08/2021 LDL CHOLESTEROL ANNUAL 06/04/2022 06/04/2021 RSV VACCINE (60+ or ) (1 - 1-dose 75+ series) 11/12/2022 INFLUENZA VACCINE (#1) 2025 Medical Devices Implanted Type Area Density Control Puncher Device Identifier Shelf Expiration Date Model / Serial / Lot [employer] Ptfe Thick 1.6mmx2.5x10.2c m [id number] - [id number] Implanted:Qty: 1 on 06/14/2021 at [facility] Graft N/A: Heart CR BARD- [employer] [id number] 10/18/2025 [id number] / / [id number] Ring Vein Marking 10mm [id number] - [id number] Implanted:Qty: 1 on 06/14/2021 at [facility] Other N/A: Heart TELEFLEX- PILL WECK CLEVE L P 06/14/2121 [id number] / / [id number] Ring Vein Marking 10mm [id number] - [id number] Implanted:Qty: 1 on 06/14/2021 at [facility] Other N/A: Heart TELEFLEX- PILL WECK CLEVE L P 06/14/2121 [id number] / / [id number] Procedures Procedure Name Priority Date/Time Associated Diagnosis Comments HEMOGLOBIN A1C Routine 06/08/2021 3:21 AM INVENTORY CONTROL ASSOCIATE LIPID PANEL Routine 06/04/2021 from Last 3 Months or Most Recently Relevant to Health Maintenance Results * (ABNORMAL) HEMOGLOBIN A1C (06/08/2021 3:21 AM INVENTORY CONTROL ASSOCIATE) HEMOGLOBIN A1C 8.4(H) <=5.6 % 06/12/2021 6:26 AM INVENTORY CONTROL ASSOCIATE [facility] EST. AVG GLUCOSE, A1C 194 mg/dL 06/12/2021 6:26 AM INVENTORY CONTROL ASSOCIATE [facility] Blood Venipuncture / Unknown 06/08/2021 3:21 AM INVENTORY CONTROL ASSOCIATE 06/08/2021 3:35 AM INVENTORY CONTROL ASSOCIATE Narrative [facility] - 06/12/2021 6:26 AM INVENTORY CONTROL ASSOCIATE HGB A1C INTERPRETATION NORMAL: <5.7% PRE-DIABETES: 5.7 - 6.4% DIABETES: 6.5% OR GREATER Olga Levy DORMITORY KEEPER CHEMISTRY ORDERABLES Fin al Result [facility] [employer] [facility] CLIA # [id number] [id number] [place] [address] * LIPID PANEL (06/04/2021) ABSTRACTED CHOLESTEROL 226 ABSTRACTED TRIGLYCERIDE 236 ABSTRACTED HDL 30 ABSTRACTED LDL CALCULATED 149 Blood 06/04/2021 us Abstract Provider CHEMISTRY ORDERABLES Final Res ult from Last 3 Months or Most Recently Relevant to Health Maintenance Insurance GENERIC MEDICARE MANAGED CARE Advance Directives For more information, please contact: [phone] Documents on File Type Date Recorded Patient Motion And Time Study Teacher Expl anation Advance Directive POA 06/20/2021 10:36 AM Advance Directive POA * Full Code (Latest Code Status on File) Date Activated Date Inactivated Comments 06/14/2021 3:21 PM 06/18/2021 5:46 PM * Full Code Date Activated Date Inactivated Comments 06/07/2021 8:09 AM 06/14/2021 3:21 PM Care Teams Fox Farmer Relationship Specialty Start Date End Date Sasha Min NP [address] [place] [address] PCP - General NURSE PRACTITIONER 08/17/13
--- OUTSIDE RECORDS SUMMARY | 2025-05-10 05:12 | XMS_ITS | Encounter Summary ---
Author Organization [facility] Address [address] [place] [address] Care Team Providers Care Professor Of Literacy Name Role Phone Sasha Min CHURCH OFFICIAL Primary Care Provider [phone] Encounter Details Date Type Department Care Team (Late st Contact Info) Description 05/03/2025 External Device Data [facility] ABSTRACTION Provider, Abstract NO ADDRESS ON FILE Social History Tobacco Use Types Packs/Day Years Used Date Smoking Tobacco: Former Cigarettes Q uit: 06/23/1979 Alcohol Use Standard Drinks/Week Comments No 0 (1 standard drink = 0.6 oz pur e alcohol) Sex and Gender Information Value Date Recorded Sex Assigned at Not on file 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
[2025-05-10] MEDS: ondansetron 2 mg/ML SDV 2 mL 4 MG IVP (05:36)
[2025-05-10 05:50] LABS: Base Excess VBG 3.3 mmol/L (-3.0-3.0); Blood Gas Sample Type Venous; HCO3 VBG 28.4 mmol/L (24-28); PCO2 VBG 44.0 mmHg (41-51); PO2 VBG 36.0 mmHg (25-40); Venous Blood Gas Hematocrit 45.1 % (42-52); pH VBG 7.42 (7.32-7.42)
[2025-05-10 05:54] LABS: Hematocrit 43.7 % (37-53); Hemoglobin 14.00 g/dL (11.27-16.99); Mean Corpuscular HGB Conc 32.0 g/dL (30-55); Mean Corpuscular Hemoglobin 31.7 pg (27-33); Mean Corpuscular Volume 98.9 fl (82-101); Nucleated Red Blood Cells % 0 %; Platelet Count 126 10^3/cmm (157-399); Red Blood Count 4.42 10^6/uL (3.85-5.65); White Blood Count 10.30 10^3/uL (3.29-11.43)
--- NOTE | 2025-05-10 05:58 | W.ED.NAVMDI ---
HPI - Nausea/Vomiting/Diarrhea General: Chief complaint: Nausea/Vomiting/Diarrhea Stated complaint: N/V Time Seen by Provider: 05/10/25 05:53 History of Present Illness: 79-year-old male presents emergency room with complaints of sudden drop in his blood sugar with vomiting. Patient states he went from 53-53. He has associated bradycardia as well. He felt like he might pass out he states he never did lose consciousness he has had previous episodes where he did pass out. Denies any hematemesis or coffee-ground emesis. He has had several episodes of diarrhea no hematochezia or melena. He typically is on oxygen at home he states he usually uses somewhere between 3 and 5 L/min he is on 4 L/min now. He has not history of diabetes well-controlled diabetes mellitus he also has a history of coronary artery disease. He had multiple bypasses before. He is not having abdominal pain now. He denies any chest pain or increased shortness of breath. No recent fever sweats or chills. No productive cough. Associated symtoms: Denies chest pain or dysuria Related Data Home Medications ?Medication ?Instructions ?Recorded ?Confirmed clopidogrel 75 mg tablet (Plavix) 75 mg PO DAILY 08/02/21 04/22/25 atorvastatin 80 mg tablet 80 mg PO QPM 02/18/24 04/22/25 empagliflozin 25 mg tablet 25 mg PO DAILY 02/18/24 04/22/25 (Jardiance) folic acid 1 mg tablet 1 mg PO DAILY 02/18/24 04/22/25 pioglitazone 30 mg tablet 30 mg PO DAILY 10/06/24 04/22/25 diclofenac sodium 1 % topical gel 2 g topical QID 10/22/24 04/22/25 Previous Rx's ?Medication ?Instructions ?Recorded metoprolol succinate 25 mg 25 mg PO DAILY #30 tabs 02/19/24 tablet,extended release 24 hr fluticasone furoate 100 1 inh inhalation DAILY #60 ea 10/08/24 mcg-vilanterol 25 mcg/dose inhalation powder (Breo Ellipta) insulin aspart U-100 100 unit/mL See Protocol SUBCUT TID #15 mL 10/08/24 (3 mL) subcutaneous pen (Novolog FlexPen U-100 Insulin aspart) insulin glargine 100 unit/mL 16 unit (0.16 mL) SUBCUT QAM #5 mL 10/08/24 subcutaneous solution (Lantus U-100 Insulin) tiotropium bromide 1.25 2 inh inhalation DAILY #4 grams 10/08/24 mcg/actuation mist for inhalation (Spiriva Respimat) furosemide 20 mg tablet (Lasix) 20 mg PO QDAY #30 tabs 12/30/24 Allergies Allergy/AdvReac Type Severity Reaction Status Date / Time Penicillins Allergy ALGY-Difficulty Verified 04/22/25 10:00 Breathing Review of Systems Const: Denies: fever(s) or chills Card: Denies: chest pain Resp: Denies: dyspnea GI: Denies: abdominal pain : Denies: dysuria, urinary frequency or urinary urgency Musc: Denies: neck pain or back pain Skin/Breast: Denies: rash PFSH ED PFSH: Medical History Hydronephrosis, right Right nephrolithiasis 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 Atherosclerosis of coronary artery of [place] without angina pectoris Non-ST elevated myocardial infarction COPD with hypoxia Chronic kidney disease Renal calculi Moderate aortic stenosis by prior echocardiogram Coronary artery disease CABG x 4 in 2011, history of sternal nonunion. 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 Complicating treatment of stones Uric acid urolithiasis Hx of chest wall injury COPD (chronic obstructive pulmonary disease) Chronically on 3 L of oxygen Congestive heart failure Moderate aortic stenosis last echocardiogram Diabetes type 2, uncontrolled Sleep apnea On CPAP On home O2 History of kidney stones High cholesterol Neuropathy Surgical History S/P CABG (coronary artery bypass graft) Status post placement of ureteral stent History of quadruple bypass Hx of lithotripsy Family History Mother , at age 76 COPD (chronic obstructive pulmonary disease) Father , at age 68-aortic aneurysm No problems noted. Social History Smoking and tobacco/nicotine status: never used tobacco/nicotine Alcohol intake: former Substance/Drug Use: never Marital status: Current occupational status: retired Current gender identity: Male Physical Exam Const: GENERAL APPEARANCE: cooperative ORIENTATION/CONSCIOUSNESS: Yes awake, Yes oriented to person, Yes oriented to place and Yes oriented to time HENMT: COMMON NORMALS: normocephalic, atraumatic and hearing grossly normal bilaterally HEAD & SCALP: normocephalic and atraumatic Resp: COMMON NORMALS: normal respiratory effort, No retractions, No use of accessory muscles and clear to auscultation bilaterally AUSCULTATION: clear to auscultation bilaterally Cardio: COMMON NORMALS: regular rate, regular rhythm and No murmurs present (Cardio) RATE: regular rate RHYTHM: regular rhythm GI: COMMON NORMALS: Soft to palpation and No hepatosplenomegaly present AUSCULTATION: Yes normoactive bowel sounds PALPATION: Yes Soft to palpation, No Tenderness to palpation present (GI), No Guarding due to palpation present (GI) and Yes No hepatosplenomegaly present Extremity: COMMON NORMALS: normal to inspection, capillary refill normal, no clubbing, cyanosis or edema, no calf tenderness and no pedal edema Neuro: SENSORIUM/ORIENTATION: Yes oriented to person, Yes oriented to place and Yes oriented to time Skin: COMMON NORMALS: no rashes or lesions noted GENERAL SKIN EXAM: no rashes or lesions noted Course Vital Signs: Vital signs: Vital Signs Temperature 98.5 F 05/10/25 05:01 Pulse Rate 86 05/10/25 05:19 Respiratory Rate 24 H 05/10/25 05:01 Blood Pressure 100/55 05/10/25 05:19 Pulse Oximetry 92 05/10/25 05:19 Oxygen Delivery Me thod Nasal Cannula 05/10/25 05:19 Oxygen Flow Rate 5 05/10/25 05:19 MDM - Nausea/Vomiting/Diarrhea Medical Decision Making Patient presents with a episode of when he felt like he was nearly get a pass out associated with vomiting. Evaluation for DKA is negative however his first troponin is 174 his typical baseline is 40s and 50s. He is not having any further chest pain or discomfort at this time he said his usual oxygen right. EKG did not show any acute changes subtle increased vascular markings on his chest x-ray but he is not in any decompensated heart failure at this time. Stress test and January 23, 2024 showed some nhi-infarct ischemia previous angiogram in 2020 showed diffuse disease but there is no intervention at that time. Discussed case with Dr. Humphrey he will consult. Discussed with Dr. Alberto, he will be attending to [facility]. Patient has received heparin and aspirin. Medical Records I reviewed the patient's medical records. Lexiscan stress test 02/19/2024 IMPRESSIONS 1. Myocardial perfusion imaging revealing areas of persistent decreased tracer uptake involving the inferior, inferolateral, anterolateral and apical regions with small areas of minimal reversibility, suggesting extensive scarring involving the distribution of the right coronary artery and left circumflex artery with a very small area of possible preinfarction ischemia in the circumflex territory. 2. Normal LV ejection fraction 59%. 3. LV wall motion analysis revealing no gross wall motion abnormalities. 4. Mildly dilated LV cavity Compared to the study from 06/04/2021, the ischemic burden appears to be much less Dr Hansa Humphrey MD [facility] (Electronically Signed) Final Date: 19 February 2024 Cardiac catheterization 06/05/2021 Diagnostic Cath Status: Urgent Diagnostic Findings * The left main is a medium caliber vessel with minimal intimal regularities. No significant stenotic lesions were noted. * The left and descending artery appears to be totally occluded proximally. * The left circumflex artery was found to have mild diffuse disease. No significant stenotic lesions. * The intermedius artery is a small caliber vessel which was found to have severe diffuse disease. * The right coronary artery appears to be totally occluded after giving of the sinus alban branch. * The the venous graft to the PDA was found to be patent. Moderate disease was noted in the proximal segment of the vein graft. No significant stenotic lesions. * The sequential venous graft to the intermedius/diagonal artery was found to be patent. The anastomosis of the intermedius artery appears to be totally occluded. Retrograde flow from the diagonal was found to be filling of the mid and distal LAD. Right after the takeoff of the diagonal, there is a high-grade lesion in the LAD. The distal LAD was found to have mild diffuse disease with no significant stenotic lesions. * The BOSWELL to the LAD was found to be atretic, during the previous angiogram. So I did not attempt to engage the artery at this time. Lab Data I reviewed the patient's lab results. 05/10/25 05:36 05/10/25 05:36 Radiology Impressions Chest X-Ray 05/10/25 05:11 IMPRESSION: No acute abnormality. The opacity at the left lung base is unchanged since 10/22/2024 and therefore presumably chronic. Laboratory Results WBC 10.30 10^3/uL (3.29-11.43) 05/10/25 05:36 RBC 4.42 10^6/uL (3.85-5.65) 05/10/25 05:36 Hgb 14.00 g/dL (11.27-16.99) 05/10/25 05:36 Hct 43.7 % (37-53) 05/10/25 05:36 MCV 98.9 fl (82-101) 05/10/25 05:36 MCH 31.7 pg (27-33) 05/10/25 05:36 MCHC 32.0 g/dL (30-55) 05/10/25 05:36 RDW 15.5 % (12.1-15.1) H 05/10/25 05:36 Plt Count 126 10^3/cmm (157-399) L 05/10/25 05:36 MPV 11.3 fL (7.4-10.4) H 05/10/25 05:36 Neut % (Auto) 88.6 % 05/10/25 05:36 Lymph % (Auto) 5.4 % 05/10/25 05:36 Douglas % (Auto) 4.0 % 05/10/25 05:36 Eos % (Auto) 0.9 % 05/10/25 05:36 Baso % (Auto) 0.6 % 05/10/25 05:36 Neut # (Auto) 9.13 10^3/uL (1.8-7.7) H 05/10/25 05:36 Lymph # (Auto) 0.6 10^3/uL (0.8-4.8) L 05/10/25 05:36 Douglas # (Auto) 0.4 10^3/uL (0.2-0.9) 05/10/25 05:36 Eos # (Auto) 0.1 10^3/uL (0.0-0.8) 05/10/25 05:36 Baso # (Auto) 0.1 10^3/uL (0.0-0.1) 05/10/25 05:36 Nucleated RBC % (auto) 0 % 05/10/25 05:36 Nucleated RBCs # 0.0 /100WBC 05/10/25 05:36 Specimen Type Venous 05/10/25 05:36 Mario Test N/a 05/10/25 05:36 VBG pH 7.42 (7.32-7.42) 05/10/25 05:36 VBG pCO2 44.0 mmHg (41-51) 05/10/25 05:36 VBG pO2 36.0 mmHg (25-40) 05/10/25 05:36 VBG HCO3 28.4 mmol/L (24-28) H 05/10/25 05:36 VBG Base Excess 3.3 mmol/L (-3.0-3.0) H 05/10/25 05:36 VBG Hematocrit 45.1 % (42-52) 05/10/25 05:36 Containers Sales Representative ID [email or web address] 05/10/25 05:36 Sodium 141 mmol/L (136-145) 05/10/25 05:36 Potassium 4.3 mmol/L (3.5-5.1) 05/10/25 05:36 Chloride 104 mmol/L (98-107) 05/10/25 05:36 Carbon Dioxide 23 mmol/L (22-29) 05/10/25 05:36 Anion Gap 18.3 (5-19) 05/10/25 05:36 BUN 19 mg/dL (8-23) 05/10/25 05:36 Creatinine 1.3 mg/dL (0.7-1.2) H 05/10/25 05:36 GFR Calculation Not Reportable 05/10/25 05:36 Glucose 130 mg/dL (65-115) H 05/10/25 05:36 POC Glucose 123 mg/dL (70-110) H 05/10/25 07:11 Calculated Osmolality 296 mOsm/kg (285-295) H 05/10/25 05:36 Lactic Acid 1.8 mmol/L (0.5-2.2) 05/10/25 05:36 Calcium 8.8 mg/dL (8.5-10.5) 05/10/25 05:36 Phosphorus 2.7 mg/dL (2.5-4.5) 05/10/25 05:36 Total Bilirubin 0.7 mg/dL (0.15-1.2) 05/10/25 05:36 AST 24 U/L (0-40) 05/10/25 05:36 ALT 16 U/L (0-41) 05/10/25 05:36 Alkaline Phosphatase 76 U/L (40-130) 05/10/25 05:36 Troponin T Baseline 174 ng/L (0-15) H* 05/10/25 05:36 C-Reactive Protein 8.5 mg/L (0.0-4.9) H 05/10/25 05:36 Total Protein 5.9 g/dL (6.6-8.7) L 05/10/25 05:36 Albumin 3.9 g/dL (3.5-5.2) 05/10/25 05:36 Globulin 2.0 g/dL (1.3-4.6) 05/10/25 05:36 Lipase 26 U/L (13-60) 05/10/25 05:36 Serum Ketones Negative (Negative) 05/10/25 05:36 All radiology interpretation(s) finalized by discharge ED provider radiology interpretation(s): Chest x-ray shows increased vascular markings. Mild cardiomegaly. Multiple old rib fractures including 3 on the left that have been stabilized with external hardware. Sternal wires from previous bypass. No infiltrates. No masses. No widening of mediastinum compared to chest x-ray 10/22/2024 EKG Data EKG 1: I personally reviewed and interpreted this EKG as follows: Interpretation: 05/11/2025 5:25 AM EKG sinus rhythm left anterior fascicular block. No acute ST changes no ST elevation. Rate of 81. NE interval 171 QTc 449. Compared to EKG 10/22/2024 no acute changes. EKG 2: I personally reviewed and interpreted this EKG as follows: Interpretation: EKG 05/10/2025 Discharge Plan Discharge Patient Disposition: Admitted As Inpatient Clinical Impression: Non-ST elevation SC (NSTEMI), History of quadruple bypass, Ischemic cardiomyopathy Coronary artery disease Qualifiers: Coronary Disease-Associated Artery/Lesion type: bypass graft [place] vs. transplanted heart: [place] Associated angina: with unspecified angina Qualified Code(s): I25.709 - Atherosclerosis of coronary artery bypass graft(s), unspecified, with unspecified angina pectoris Chronic kidney disease Qualifiers: Chronic kidney disease stage: stage 2 (mild) Qualified Code(s): N18.2 - Chronic kidney disease, stage 2 (mild) Diabetes type 2, uncontrolled Qualifiers: Glycemic state: with hyperglycemia Qualified Code(s): E11.65 - Type 2 diabetes mellitus with hyperglycemia Condition: Stable Coding Level of Care Code ED Hospital Technician for Adelaida Hayes
[2025-05-10 06:12] LABS: Alanine Aminotransferase 16 U/L (0-41); Albumin Level 3.9 g/dL (3.5-5.2); Alkaline Phosphatase 76 U/L (40-130); Blood Urea Nitrogen 19 mg/dL (8-23); Calcium 8.8 mg/dL (8.5-10.5); Carbon Dioxide 23 mmol/L (22-29); Chloride 104 mmol/L (98-107); Globulin 2.0 g/dL (1.3-4.6); Glucose 130 mg/dL (65-115); Lipase 26 U/L (13-60); Osmolality Calculated 296 mOsm/kg (285-295); Sodium 141 mmol/L (136-145); Total Protein 5.9 g/dL (6.6-8.7); Troponin(5th) Baseline 174 ng/L (0-15)
[2025-05-10 06:13] LABS: Lactic Sepsis W/Reflex 1.8 mmol/L (0.5-2.2)
[2025-05-10 06:15] LABS: Anion Gap 18.3 (5-19); Potassium 4.3 mmol/L (3.5-5.1)
[2025-05-10 06:16] LABS: Aspartate Amino Transferase 24 U/L (0-40)
--- NOTE | 2025-05-10 06:16 | ECG_ITS ---
[employer] Test Date: 2025-05-10 Pat Name: Ambrose Villa Department: Room: Gender: Male Layout Artist: : 1945 Requested By: Parmjit Stewart Order Number: [id number] Denice MD: Hansa Humphrey M.D. Measurements Intervals [place] Rate: 82 P: 29 VA: 163 QRS: -71 QRSD: 112 T: 40 QT: 385 QTc: 450 Interpretive Statements SINUS RHYTHM WITH SINUS ARRHYTHMIA PATTERN CONSISTENT WITH PULMONARY DISEASE INFERIOR MYOCARDIAL INFARCTION , PROBABLY OLD [40+ ms Q WAVE AND/OR ST/T ABNORMALITY IN II/aVF] INTERPRETATION BASED ON A DEFAULT AGE OF 40 YEARS Compared to ECG 05/10/2025 05:25:15 Myocardial infarct finding now present Left anterior fascicular block no longer present Electronically Signed On 05-12-2025 00:14:09 [employer]ERCIAL S[employer]ER by Hansa Humphrey M.D. [email or web address]
[2025-05-10 06:17] LABS: Ketone (Acetest) Serum Negative (Negative)
[2025-05-10] MEDS: heparin drip 25,000 UNIT/500 ML PREMIX 55.88 UNIT IV (07:16)
[2025-05-10] MEDS: heparin 5,000 unit/mL INJ 1 mL IVP (07:16)
[2025-05-10 07:35] LABS: Troponin 5 2HR 248.0 ng/L (0-15); Troponin 5 2HR Delta 74.0 ABS# (0-10)
[2025-05-10 07:40] LABS: Respiratory Syncytial Virus Ce NEGATIVE (Negative); SARS-CoV-2 PCR NEGATIVE (Negative)
[2025-05-10 07:49] LABS: NT Pro B Type Natriuretic Pept 1613 pg/mL (0-450)
--- NOTE | 2025-05-10 07:55 | PM.CONSULT ---
Providers/Reason For Consult Consulting Physician/Specialty*: JUAN Humphrey MD/cardiology Reason for Consult*: Patient with history of atherosclerotic heart disease, previous coronary artery bypass surgery presenting with chest pain and shortness of breath. Elevated troponin T. Requesting Physician: Dr. Crabtree/ Primary Care Provider: Radha Blevins MD History of Present Illness History of Present Illness Ambrose Villa is a 79 year old male history of atherosclerotic heart disease, previous coronary artery bypass surgeryX2 is present with complaints of chest pain, shortness of breath and elevated troponin T. Cardiology consult is requested for further cardiac evaluation and recommendations. This patient apparently has been in his baseline state of health up until 3:00 this morning when he woke up with chest tightness, shortness of breath and some chills. He felt like a heaviness in the chest. It was mild to moderate intensity. He had these episodes waxing and waning. No associated nausea or vomiting. Because of the recurrent episodes of these symptoms, he was brought to the emergency room. In the emergency room, he was found to have an elevated troponin T in the 140s. Initially his vitals were stable. While being in the emergency room, he started having the pressure-like pain again. This time, his systolic blood pressure also started dropping into the 70s and 80s. By fluid hydration, the pressure is now 94/52. His troponin T also seems to be going up around 240. He has no fever or chills at this time. No significant cough. Initially the patient that his symptoms may be related to low blood sugar. Apparently his blood sugar was in the normal range in the emergency room. At the time of my examination, patient is still complaining of chest tightness/heaviness. He is known to have atherosclerotic heart diseas and coronary artery bypass surgery x 2-details as mentioned below. Also has a history of hypertension, diabetes, dyslipidemia, COPD, obstructive sleep apnea, chronic kidney disease. This patient is known to have atherosclerotic heart diseas and had 2 open heart surgeries. Initially had a four-vessel bypass surgery. Cardiac catheterization in May 2021 revealed occluded left anterior descending artery and right coronary artery. Mild disease in the circumflex artery. The BOSWELL to the LAD was found to be atretic. The sequential venous graft to the diagonal/intermedius artery was found to be patent with occluded limb to the intermedius artery. The venous graft to the PDA also was found to be patent with a mild to moderate disease proximally. He had a high-grade lesion in the left anterior descending artery after the diagonal branch. PCI was attempted at the beginning but was unsuccessful. Patient was subsequently transferred to the [facility] in [place], [place]. He underwent a redo bypass surgery at that time. He had a venous graft to the distal LAD and an interposition graft to the PDA. Since the coronary intervention, patient has generally been doing okay. No active smoking abuse. No other specific complaints at this time. Review of Systems Narrative: CONSTITUTIONAL: No fever or chills. EYES: No blurring of vision or other visual disturbances lately. ENT: No hoarseness of voice, auditory disturbances or sore throat. CARDIOVASCULAR: As mentioned above. RESPIRATORY: Baseline shortness of breath, COPD/obstructive sleep apnea GASTROINTESTINAL: No hematemesis or melena. GENITOURINARY: No dysuria or hematuria. INTEGUMENTARY: No skin rashes or history of skin cancer. NEURO: No transient ischemic attacks or amaurosis. PSYCHIATRIC: No history of psychosis or major depression. HEMATOLOGIC: No bleeding disorders or significant anemia. ENDOCRINE: No history of polyuria or polydipsia. MUSCULOSKELETAL: No recent joint pain or swelling. ALLERGY/IMMUNOLOGY: As mentioned above. Medications/Allergies Home Medications ?Medication ?Instructions ?Recorded ?Confirmed ?Last Taken ?Type clopidogrel 75 mg tablet (Plavix) 75 mg PO DAILY 08/02/21 05/10/25 05/09/25 History atorvastatin 80 mg tablet 80 mg PO QPM 02/18/24 05/10/25 05/09/25 19:00 History empagliflozin 25 mg tablet 25 mg PO DAILY 02/18/24 05/10/25 05/09/25 History (Jardiance) folic acid 1 mg tablet See Rx Instructions .Route .COMPLEX 02/18/24 05/10/25 10/21/24 History pioglitazone 30 mg tablet 30 mg PO DAILY 10/06/24 05/10/25 05/09/25 History fluticasone furoate 100 1 inh inhalation DAILY #60 ea 10/08/24 05/10/25 10/22/24 Rx mcg-vilanterol 25 mcg/dose inhalation powder (Breo Ellipta) insulin aspart U-100 100 unit/mL See Protocol SUBCUT TID #15 mL 04/05/10/25 10/22/24 Rx (3 mL) subcutaneous pen (Novolog FlexPen U-100 Insulin aspart) insulin glargine 100 unit/mL 16 unit (0.16 mL) SUBCUT QAM #5 mL 10/08/24 05/10/25 05/09/25 08:00 Rx subcutaneous solution (Lantus U-100 Insulin) tiotropium bromide 1.25 2 inh inhalation DAILY #4 grams 10/08/24 05/10/25 10/22/24 Rx mcg/actuation mist for inhalation (Spiriva Respimat) diclofenac sodium 1 % topical gel 2 g topical QID 10/22/24 05/10/25 Unknown History furosemide 20 mg tablet (Lasix) 20 mg PO QDAY #30 tabs 12/30/24 05/10/25 05/09/25 Rx glucose 4 gram chewable tablet 16 g PO PRN PRN LOW BLOOD SUGAR 05/10/25 05/10/25 Unknown History methocarbamol 500 mg tablet 500 mg PO TID PRN Pain 05/10/25 05/10/25 Unknown History metoprolol succinate 25 mg 12.5 mg PO DAILY 05/10/25 05/10/25 05/09/25 History tablet,extended release 24 hr potassium chloride 10 mEq 20 meq PO DAILY 05/10/25 05/10/25 05/09/25 History tablet,extended release tamsulosin 0.4 mg capsule 0.4 mg PO QPM 05/10/25 05/10/25 05/09/25 19:00 History Allergies Allergy/AdvReac Type Severity Reaction Status Date / Time Penicillins Allergy ALGY-Difficulty Verified 04/22/25 10:00 Breathing Current Medications Generic Name Dose Route Start Last Admin Trade Name Freq PRN Reason Stop Dose Admin Heparin Sodium/Sodium Chloride 25,000 unit in 500 mls @ 0 mls/hr 05/10/25 06:15 05/10/25 07:16 Heparin Drip IV 28 unit/kg/hr CONT VIRGIL 55.88 mls/hr Protocol Administration Per Protocol PFSH Acute PFSH: Medical History Hydronephrosis, right Right nephrolithiasis 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 Atherosclerosis of coronary artery of [place] heart without angina pectoris Non-ST elevated myocardial infarction COPD with hypoxia Chronic kidney disease Renal calculi Moderate aortic stenosis by prior echocardiogram Coronary artery disease CABG x 4 in 2011, history of sternal nonunion. 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 Complicating treatment of stones Uric acid urolithiasis Hx of chest wall injury COPD (chronic obstructive pulmonary disease) Chronically on 3 L of oxygen Congestive heart failure Moderate aortic stenosis last echocardiogram Diabetes type 2, uncontrolled Sleep apnea On CPAP On home O2 History of kidney stones High cholesterol Neuropathy Surgical History S/P CABG (coronary artery bypass graft) Status post placement of ureteral stent History of quadruple bypass Hx of lithotripsy Family History Mother , at age 76 COPD (chronic obstructive pulmonary disease) Father , at age 68-aortic aneurysm No problems noted. Social History Smoking and tobacco/nicotine status: never used tobacco/nicotine Alcohol intake: former Substance/Drug Use: never Marital status: Current occupational status: retired Current gender identity: Male Vitals/I&O/Wt Last Vital Signs Temp 98.5 F 05/10/25 05:01 Pulse 79 05/10/25 07:10 Resp 11 L 05/10/25 07:10 BP 92/54 05/10/25 07:10 Pulse Ox 92 05/10/25 07:10 O2 Del Method Nasal Cannula 05/10/25 07:10 O2 Flow Rate 4 05/10/25 07:10 Weight last 48 hrs Weight 220 lb Physical Exam Narrative: GENERAL: The patient is alert and oriented times three. Not in any acute distress. HEENT: No significant pallor, icterus or lymphadenopathy.Oral cavity: There are no mucous membrane lesions. NECK: Trachea appears to be central. No masses noted. No JVD or thyromegaly appreciated. RESPIRATORY: Chest is symmetrical. No intercostals muscle retraction or any accessory muscle activation. There is no chest wall tenderness. Breath sounds are heard bilaterally. No rales or rhonchi heard. No evidence of any consolidation. BREASTS: Deferred. HEART: The heart sounds are normal. No S3 or S4. Short systolic murmur in the lower sternal border. No diastolic murmurs.]. No pericardial rub ABDOMEN: No vessel pulsations or distention. No tenderness. No organomegaly appreciated. Bowel sounds are normally heard. : Deferred. RECTAL: Deferred. LYMPHATIC: No lymphadenopathy noted in the neck. EXTREMITIES: No edema or cyanosis. No clubbing. MUSCULOSKELETAL: No acute joint deformities or swelling SKIN: There are no significant rashes or ecchymosis NEUROPSYCHIATRIC: The patient is alert and oriented x3. Appears to be in a good mood. No tremors or rigidity noted. Data 05/10/25 05:36 05/10/25 05:36 Other Labs: Laboratory Last Values WBC 10.30 10^3/uL (3.29-11.43) 05/10/25 05:36 RBC 4.42 10^6/uL (3.85-5.65) 05/10/25 05:36 Hgb 14.00 g/dL (11.27-16.99) 05/10/25 05:36 Hct 43.7 % (37-53) 05/10/25 05:36 MCV 98.9 fl (82-101) 05/10/25 05:36 MCH 31.7 pg (27-33) 05/10/25 05:36 MCHC 32.0 g/dL (30-55) 05/10/25 05:36 RDW 15.5 % (12.1-15.1) H 05/10/25 05:36 Plt Count 126 10^3/cmm (157-399) L 05/10/25 05:36 MPV 11.3 fL (7.4-10.4) H 05/10/25 05:36 Neut % (Auto) 88.6 % 05/10/25 05:36 Lymph % (Auto) 5.4 % 05/10/25 05:36 [place] % (Auto) 4.0 % 05/10/25 05:36 Eos % (Auto) 0.9 % 05/10/25 05:36 Baso % (Auto) 0.6 % 05/10/25 05:36 Neut # (Auto) 9.13 10^3/uL (1.8-7.7) H 05/10/25 05:36 Lymph # (Auto) 0.6 10^3/uL (0.8-4.8) L 05/10/25 05:36 [place] # (Auto) 0.4 10^3/uL (0.2-0.9) 05/10/25 05:36 Eos # (Auto) 0.1 10^3/uL (0.0-0.8) 05/10/25 05:36 Baso # (Auto) 0.1 10^3/uL (0.0-0.1) 05/10/25 05:36 Nucleated RBC % (auto) 0 % 05/10/25 05:36 Nucleated RBCs # 0.0 /100WBC 05/10/25 05:36 Specimen Type Venous 05/10/25 05:36 Mario Test N/a 05/10/25 05:36 VBG pH 7.42 (7.32-7.42) 05/10/25 05:36 VBG pCO2 44.0 mmHg (41-51) 05/10/25 05:36 VBG pO2 36.0 mmHg (25-40) 05/10/25 05:36 VBG HCO3 28.4 mmol/L (24-28) H 05/10/25 05:36 VBG Base Excess 3.3 mmol/L (-3.0-3.0) H 05/10/25 05:36 VBG Hematocrit 45.1 % (42-52) 05/10/25 05:36 Saw Straightener ID [email or web address] 05/10/25 05:36 Sodium 141 mmol/L (136-145) 05/10/25 05:36 Potassium 4.3 mmol/L (3.5-5.1) 05/10/25 05:36 Chloride 104 mmol/L (98-107) 05/10/25 05:36 Carbon Dioxide 23 mmol/L (22-29) 05/10/25 05:36 Anion Gap 18.3 (5-19) 05/10/25 05:36 BUN 19 mg/dL (8-23) 05/10/25 05:36 Creatinine 1.3 mg/dL (0.7-1.2) H 05/10/25 05:36 GFR Calculation Not Reportable 05/10/25 05:36 Glucose 130 mg/dL (65-115) H 05/10/25 05:36 POC Glucose 123 mg/dL (70-110) H 05/10/25 07:11 Calculated Osmolality 296 mOsm/kg (285-295) H 05/10/25 05:36 Lactic Acid 1.8 mmol/L (0.5-2.2) 05/10/25 05:36 Calcium 8.8 mg/dL (8.5-10.5) 05/10/25 05:36 Phosphorus 2.7 mg/dL (2.5-4.5) 05/10/25 05:36 Total Bilirubin 0.7 mg/dL (0.15-1.2) 05/10/25 05:36 AST 24 U/L (0-40) 05/10/25 05:36 ALT 16 U/L (0-41) 05/10/25 05:36 Alkaline Phosphatase 76 U/L (40-130) 05/10/25 05:36 Troponin T Baseline 174 ng/L (0-15) H* 05/10/25 05:36 Troponin T 120 Minute 248.0 ng/L (0-15) H 05/10/25 07:08 Delta Troponin T 74.0 ABS# (0-10) H* 05/10/25 07:08 C-Reactive Protein 8.5 mg/L (0.0-4.9) H 05/10/25 05:36 Total Protein 5.9 g/dL (6.6-8.7) L 05/10/25 05:36 Albumin 3.9 g/dL (3.5-5.2) 05/10/25 05:36 Globulin 2.0 g/dL (1.3-4.6) 05/10/25 05:36 Lipase 26 U/L (13-60) 05/10/25 05:36 Serum Ketones Negative (Negative) 05/10/25 05:36 Influenza A (PCR) Negative (Negative) 05/10/25 06:56 Influenza Type B (PCR) Negative (Negative) 05/10/25 06:56 RSV (PCR) Negative (Negative) 05/10/25 06:56 SARS-CoV-2 (PCR) Negative (Negative) 05/10/25 06:56 Other data: The EKG from today revealed a sinus rhythm with a poor R wave progression. Left axis deviation. Possible old inferior wall HI. Some nonspecific T wave changes. A&P Assessment and plan 1. Atherosclerosis of [place] coronary artery of [place] heart with unstable angina pectoris: Patient secondary features are suggestive of unstable angina complicated with non-ST elevation myocardial infarction and hypotension. 2. Hypotension, unspecified hypotension type: Patient is responding to IV hydration. 3. Uncontrolled type 2 diabetes mellitus with hyperglycemia: The blood sugar seems to be under control. 4. ERUM on CPAP: Patient is known to have obstructive sleep apnea. Patient is on CPAP. Importance of compliance with this treatment was discussed. The cardiovascular implications also were discussed. Advised to continue on the current treatment measures. Plan: Chronic kidney disease COPD Dyslipidemia In view of the patient's ongoing chest pain and somewhat unstable status, he requires an urgent cardiac catheterization to evaluate his coronary arteries as well as the graft and then decide on further management. This was discussed with the patient in detail which he understood well and consented to proceed. Because of the conflict with the schedule, I requested my colleague Dr. Gregg to take over further management of this patient at this point, which he accepted. Patient was given aspirin, heparin, morphine and other symptomatic measures in the emergency room. Dr. Gregg is planning to take him to the cardiac catheterization lab Based on the angiogram findings, further recommendations will be made Thank you for the opportunity to evaluate this patient and make these recommendations PDMP PDMP Reviewed: Not Reviewed Coding Level of Care Code 37666 Diagnoses Atherosclerosis of [place] coronary artery of [place] heart with unstable angina pectoris I25.110 [place] vs. transplanted heart: [place] heart Hypotension, unspecified hypotension type I95.9 Hypotension type: unspecified hypotension type Uncontrolled type 2 diabetes mellitus with hyperglycemia E11.65 Glycemic state: with hyperglycemia ERUM on CPAP G47.33
--- NOTE | 2025-05-10 08:09 | ECG_ITS ---
[facility] Date: 2025-05-10 Pat Name: Ambrose Villa Department: Room: ICU07 Gender: Male Pharmacy Informatics Specialist: : [id number] Requested By: Parmjit Stewart Order Number: [id number] Denice MD: Hansa Humphrey M.D. Measurements Intervals [place] Rate: 75 P: 50 NV: 164 QRS: -74 QRSD: 121 T: 43 QT: 414 QTc: 464 Interpretive Statements SINUS RHYTHM WITH SINUS ARRHYTHMIA LEFT ANTERIOR FASCICULAR BLOCK [QRS AXIS <= -45, QR IN I, RS IN II] Compared to ECG 05/10/2025 06:16:35 Left anterior fascicular block now present Myocardial infarct finding no longer present Electronically Signed On 05-12-2025 00:13:56 [facility] [facility] [employer] by Hansa Humphrey M.D. [email or web address]
--- NOTE | 2025-05-10 08:28 | PC.NURSE ---
fluid bolus ordered at 0551 and initiated from cnc machinist 2nd shift nurse never infused D/T PT IV clamped. unclamped PT IV and placed fluids on a pump. PT blood pressure continue to improve with fluid administration
--- NOTE | 2025-05-10 08:40 | PM.HP ---
Providers/Chief Complaint Admitting Physician: Luis Alberto MD Primary Care Provider: Radha Blevins MD Chief Complaint: N/V History of Present Illness Ambrose Villa is a 79 year old male with pmhx of HTN, HLD, DM, CABG x4, ERUM, CPAP, CHF, COPD, CAD, CKD, ischemic cardiomyopathy, kidney stones, neuropathy and false passage urethra presenting with complaints of vomiting and hypoglycemia. Patient reports that in the 2:00 hour this morning he checked his blood sugar like normal and it was 253. An hour later he checked it after experiencing some chest heaviness and discomfort and his glucose had dropped down to 53. Endorses nausea. He called next-door to his marketing production coordinator for help. They called EMS and patient was transported to [facility] ED for assessment. BP 92/50, HR 79, RR 11, T98.5, O2 92% on 4 L nasal cannula. WBC 10.3, Hgb 14, PLT 126. pH 7.42, pCO2 44, pO2 36, HCO3 28.4. Creatinine 1.3, BUN 19. Glucose 130. Troponin 174. CRP 8.5. BNP 1613. AST/ALT WNL. COVID and flu negative. CXR; no acute abnormality, opacity at the left lung base unchanged since 10/2024 and therefore presumably chronic, see full results. Will admit to hospitalist service to [facility] for further evaluation and treatment. Review of Systems Narrative: CONSTITUTIONAL: No fever or chills. EYES: No blurring of vision or other visual disturbances lately. ENT: No hoarseness of voice, auditory disturbances or sore throat. CARDIOVASCULAR: As mentioned above. RESPIRATORY: Baseline shortness of breath, COPD/obstructive sleep apnea GASTROINTESTINAL: No hematemesis or melena. GENITOURINARY: No dysuria or hematuria. INTEGUMENTARY: No skin rashes or history of skin cancer. NEURO: No transient ischemic attacks or amaurosis. PSYCHIATRIC: No history of psychosis or major depression. HEMATOLOGIC: No bleeding disorders or significant anemia. ENDOCRINE: No history of polyuria or polydipsia. MUSCULOSKELETAL: No recent joint pain or swelling. ALLERGY/IMMUNOLOGY: As mentioned above. Medications/Allergies Home Medications ?Medication ?Instructions ?Recorded ?Confirmed ?Last Taken ?Type clopidogrel 75 mg tablet (Plavix) 75 mg PO DAILY 08/02/21 05/10/25 05/09/25 History atorvastatin 80 mg tablet 80 mg PO QPM 02/18/24 05/10/25 05/09/25 19:00 History empagliflozin 25 mg tablet 25 mg PO DAILY 02/18/24 05/10/25 05/09/25 History (Jardiance) folic acid 1 mg tablet See Rx Instructions .Route .COMPLEX 02/18/24 05/10/25 10/21/24 History pioglitazone 30 mg tablet 30 mg PO DAILY 10/06/24 05/10/25 05/09/25 History fluticasone furoate 100 1 inh inhalation DAILY #60 ea 10/08/24 05/10/25 10/22/24 Rx mcg-vilanterol 25 mcg/dose inhalation powder (Breo Ellipta) insulin aspart U-100 100 unit/mL See Protocol SUBCUT TID #15 mL 10/08/24 05/10/25 10/22/24 Rx (3 mL) subcutaneous pen (Novolog FlexPen U-100 Insulin aspart) insulin glargine 100 unit/mL 16 unit (0.16 mL) SUBCUT QAM #5 mL 10/08/24 05/10/25 05/09/25 08:00 Rx subcutaneous solution (Lantus U-100 Insulin) tiotropium bromide 1.25 2 inh inhalation DAILY #4 grams 10/08/24 05/10/25 10/22/24 Rx mcg/actuation mist for inhalation (Spiriva Respimat) diclofenac sodium 1 % topical gel 2 g topical QID 10/22/24 05/10/25 Unknown History furosemide 20 mg tablet (Lasix) 20 mg PO QDAY #30 tabs 12/30/24 05/10/25 05/09/25 Rx glucose 4 gram chewable tablet 16 g PO PRN PRN LOW BLOOD SUGAR 05/10/25 05/10/25 Unknown History methocarbamol 500 mg tablet 500 mg PO TID PRN Pain 05/10/25 05/10/25 Unknown History metoprolol succinate 25 mg 12.5 mg PO DAILY 05/10/25 05/10/25 05/09/25 History tablet,extended release 24 hr potassium chloride 10 mEq 20 meq PO DAILY 05/10/25 05/10/25 05/09/25 History tablet,extended release tamsulosin 0.4 mg capsule 0.4 mg PO QPM 05/10/25 05/10/25 05/09/25 19:00 History Allergies Allergy/AdvReac Type Severity Reaction Status Date / Time Penicillins Allergy ALGY-Difficulty Verified 04/22/25 10:00 Breathing PFSH Acute PFSH: Medical History (Updated 05/10/25 @ 12:54 by Fabiola Be, TRANSFERRER, PRACTICAL NURSING INSTRUCTOR) Hydronephrosis, right Right nephrolithiasis 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 Atherosclerosis of coronary artery of picayune heart without angina pectoris Non-ST elevated myocardial infarction COPD with hypoxia Chronic kidney disease Renal calculi Moderate aortic stenosis by prior echocardiogram Coronary artery disease CABG x 4 in 2011, history of sternal nonunion. 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 Complicating treatment of stones Uric acid urolithiasis Hx of chest wall injury COPD (chronic obstructive pulmonary disease) Chronically on 3 L of oxygen Congestive heart failure Moderate aortic stenosis last echocardiogram Uncontrolled type 2 diabetes mellitus with hyperglycemia Sleep apnea On CPAP On home O2 History of kidney stones High cholesterol Neuropathy Surgical History S/P CABG (coronary artery bypass graft) Status post placement of ureteral stent History of quadruple bypass Hx of lithotripsy Family History Mother , at age 76 COPD (chronic obstructive pulmonary disease) Father , at age 68-aortic aneurysm No problems noted. Social History Smoking and tobacco/nicotine status: never used tobacco/nicotine Alcohol intake: former Substance/Drug Use: never Marital status: Current occupational status: retired Current gender identity: Male Vitals/I&O/Wt Last Vital Signs Temp 98.5 F 05/10/25 05:01 Pulse 82 05/10/25 12:30 Resp 22 H 05/10/25 12:30 BP 95/55 05/10/25 12:30 Pulse Ox 93 05/10/25 12:30 O2 Del Method Nasal Cannula 05/10/25 11:16 O2 Flow Rate 4 05/10/25 09:02 05/09/25 05/10/25 05/10/25 22:59 06:59 14:59 Intake Total 1500 / 1500 Balance 1500 / 1500 Weight last 48 hrs Weight 99.79 kg Physical Exam Narrative: GENERAL: The patient is alert and oriented times three. Not in any acute distress. HEENT: No significant pallor, icterus or lymphadenopathy.Oral cavity: There are no mucous membrane lesions. NECK: Trachea appears to be central. No masses noted. No JVD or thyromegaly appreciated. RESPIRATORY: Chest is symmetrical. No intercostals muscle retraction or any accessory muscle activation. There is no chest wall tenderness. Breath sounds are heard bilaterally. No rales or rhonchi heard. No evidence of any consolidation. BREASTS: Deferred. HEART: The heart sounds are normal. No S3 or S4. Short systolic murmur in the lower sternal border. No diastolic murmurs.]. No pericardial rub ABDOMEN: No vessel pulsations or distention. No tenderness. No organomegaly appreciated. Bowel sounds are normally heard. : Deferred. RECTAL: Deferred. LYMPHATIC: No lymphadenopathy noted in the neck. EXTREMITIES: No edema or cyanosis. No clubbing. MUSCULOSKELETAL: No acute joint deformities or swelling SKIN: There are no significant rashes or ecchymosis NEUROPSYCHIATRIC: The patient is alert and oriented x3. Appears to be in a good mood. No tremors or rigidity noted. Data 05/10/25 05:36 05/10/25 05:36 A&P Assessment and plan 1. Atherosclerosis of pic[place]une coronary artery of picayune heart with unstable angina pectoris: History of CABG x 4 01/2024 myocardial perfusion imaging; normal LV ejection fraction 59% Aspirin 324 Heparin drip protocol started in the ED Patient required urgent cardiac cath Pain management 2. Dyspnea: History of COPD, never smoker pH 7.42, pCO2 44, pO2 36, HCO3 28.4 CXR; no acute abnormality, opacity at the left lung base unchanged since 10/2024 and therefore presumably chronic, see full results. On home oxygen 3-5 L Continue home Spiriva Supplemental O2 to keep saturations greater than 92%, pulse oximetry 3. Hypotension, unspecified hypotension type: With bradycardia BP 92/50, HR 79 in ED HR was in the 50s EKG; SR, left anterior fascicular block, OR 164, QTc 443, rate 73 Fluid bolus 1.5 L NS BP monitoring 4. Uncontrolled type 2 diabetes mellitus with hyperglycemia: Patient has diabetes managed with insulin at home Subjective glucose drop of 200 points within an hour this morning Glucose in the ED 130 Hold home regimen Hyperglycemia/hypoglycemia protocol 5. ERUM on CPAP: Continue home CPAP 6. Elevated serum creatinine: Borderline Creatinine 1.3, BUN 19 Avoid nephrotoxic agents I&O N.p.o. for now, then renal diet Monitor CMP 7. Nausea vomiting and diarrhea: Multiple episodes. Denies melena, denies hematochezia Antiemetics I&O N.p.o. for now 8. Hypoglycemia: Patient has diabetes managed with insulin at home Subjective glucose drop of 200 points within an hour this morning Glucose in the ED 130 Hold home regimen Hyperglycemia/hypoglycemia protocol PDMP PDMP Reviewed: Not Reviewed Attestations Medical Necessity Statement*: Initial hospitalization for greater than 2 midnights secondary to cardiac emergency and hypoxia in patient with history of CABG X4. Patient requiring urgent transport to the Medical Care Manager. Also note sudden hypoglycemia. Diagnoses Atherosclerosis of picayune coronary artery of picayune heart with unstable angina pectoris I25.110 [place] vs. transplanted heart: picayune heart Dyspnea R06.00 Hypotension, unspecified hypotension type I95.9 Hypotension type: unspecified hypotension type Uncontrolled type 2 diabetes mellitus with hyperglycemia E11.65 Glycemic state: with hyperglycemia ERUM on CPAP G47.33 Elevated serum creatinine R79.89 Nausea vomiting and diarrhea R11.2; R19.7 Hypoglycemia E16.2 Time Spent (min) 70
--- NOTE | 2025-05-10 09:41 | W.PM.OPSUD ---
Surgery/Procedure H&P Update DATE OF PROCEDURE: May 10, 2025 DATE H&P PERFORMED: 05/10/25 H&P UPDATE INFORMATION: I have reviewed H&P completed within last 30 days, I have examined patient prior to procedure and No changes to prior documentation PREOP DIAGNOSIS: NSTEMI PRIMARY INDICATION FOR PROCEDURE: NSTEMI PLANNED PROCEDURE: Left heart cath with possible percutaneous coronary intervention PATIENT REASSESSED PRIOR TO SEDATION, WITH NO CHANGE NOTED: Yes PHYSICAL EXAM: alert, oriented x 3, clear to auscultation bilaterally and regular rate & rhythm AIRWAY EVAL/ANESTHESIA PLAN: normal airway, ASA III, Local Anesthesia, Risks, benefits & alternatives of sedation and/or procedure discussed and Patient agrees to continue as planned ADDITIONAL INFORMATION: Moderate sedation
--- NOTE | 2025-05-10 11:00 | P.PCN_ITS ---
Procedure Note: Date of procedure: 05/10/25 Pre-procedure diagnosis: NSTEMI Post-procedure diagnosis: other Procedure: BOSWELL to LAD is known atretic. Was not injected. Left main artery is patent. Proximal circumflex artery has severe 80 to 90% stenosis. Status post PCI with 1 stent. This is the culprit vessel for non-ST elevation NV. SVG graft to RCA is occluded. [place] RCA has chronic total occlusion. SVG graft to diagonal/LAD is patent. Dual antiplatelet therapy with aspirin and Plavix. High intensity statin therapy. Obtain echocardiogram Performing Provider: Nicholas Gregg Estimated blood loss (mL): 10 Complications: None Condition: stable Disposition: ICU Coding Level of Care Code Acute Code for Chg Fwd
[2025-05-10 13:41] LABS: Partial Thromboplastin Time 146.0 SECONDS (23.9-36.7)
[2025-05-10 15:37] LABS: Partial Thromboplastin Time 97.3 SECONDS (23.9-36.7)
--- NOTE | 2025-05-10 16:41 | ECG_ITS ---
[facility]: 2025-05-10 Pat Name: Ambrose Villa Department: Room: ICU07 Gender: Male Resource Management Specialist: : [id number] Requested By: Nicholas Gregg Order Number: [id number] Denice MD: Hansa Humphrey M.D. Measurements Intervals Ronald Rate: 71 P: 38 IL: 169 QRS: -75 QRSD: 109 T: 32 QT: 422 QTc: 459 Interpretive Statements SINUS RHYTHM PATTERN CONSISTENT WITH PULMONARY DISEASE LEFT ANTERIOR FASCICULAR BLOCK [QRS AXIS <= -45, QR IN I, RS IN II] Compared to ECG 05/10/2025 08:09:48 Sinus arrhythmia no longer present Electronically Signed On 05-11-2025 07:40:59 CONCRETE PUMP OPERATOR by Hansa Humphrey M.D. [email or web address]
[2025-05-10 17:55] LABS: Partial Thromboplastin Time 46.3 SECONDS (23.9-36.7)
--- NOTE | 2025-05-10 20:09 | PC.NURSE ---
Contacted Dr. Benedict in reference to patient's request for Lantus in the AM. Received orders to hold off Lantus for now, contact if POC Gucose is >250.
--- NOTE | 2025-05-10 20:38 | PC.NURSE ---
Received in report that Dr. Gregg aware of PTT at 46 and trending downward, OK to pull sheath.
--- NOTE | 2025-05-10 21:17 | PC.NURSE ---
Sheath Pull Sheath removed at 2052. Pressure held for 20 minutes. Vital signs stable, no hematoma noted. Dressing applied. Patient care nurse ADRIANA Sheehan at bedside.
--- NOTE | 2025-05-10 23:12 | PC.NURSE ---
Contacted Dr. Benedict in reference to patient's low BP, MAP readings. Received orders for 1L NS Bolus ONCE.
[2025-05-11] VITALS (37 sets, daily range): BP systolic 91–131; BP diastolic 43–94; PULSE 59–77; RESP 13–25; TEMP 36.8–36.9; O2SAT 89–98
[2025-05-11 05:30] LABS: Hematocrit 38.9 % (37-53); Hemoglobin 11.90 g/dL (11.27-16.99); Mean Corpuscular HGB Conc 30.6 g/dL (30-55); Mean Corpuscular Hemoglobin 31.7 pg (27-33); Mean Corpuscular Volume 103.7 fl (82-101); Nucleated Red Blood Cells % 0 %; Platelet Count 96 10^3/cmm (157-399); Red Blood Count 3.75 10^6/uL (3.85-5.65); White Blood Count 8.60 10^3/uL (3.29-11.43)
[2025-05-11 05:37] LABS: Anion Gap 11.3 (5-19); Blood Urea Nitrogen 19 mg/dL (8-23); Calcium 8.0 mg/dL (8.5-10.5); Carbon Dioxide 26 mmol/L (22-29); Chloride 108 mmol/L (98-107); Glucose 115 mg/dL (65-115); Osmolality Calculated 295 mOsm/kg (285-295); Potassium 4.3 mmol/L (3.5-5.1); Sodium 141 mmol/L (136-145)
--- NOTE | 2025-05-11 13:24 | PM.PN ---
Subjective Subjective: Patient had a cardiac catheter yesterday and was found to have a high-grade ostial lesion in the circumflex artery for which he underwent PCI. Currently he seems to be stable with no chest pain. Vital signs are stable. Kidney function seems to be better Medications: Medication Review Details: Current Medications Acetaminophen (Acetaminophen 325 Mg Tablet) 650 mg PO Q6H PRN PRN Reason: Mild/Mod Pain Or Temp >/= 101 Al Hydrox/Mg Hydrox/Simethicone (Ugoz-Vzn-Nslhweyyk-Andriy 30 Ml Udc) 30 ml PO Q15M PRN PRN Reason: INDIGESTION Alprazolam (Alprazolam 0.5 Mg Tablet) 0.25 mg PO TID PRN PRN Reason: ANXIETY Aspirin (Aspirin 81 Mg Ec Tablet) 81 mg PO DAILY [facility] Last Admin: 05/11/25 04:52 Dose: 81 mg Atropine Sulfate (Atropine 1 Mg/Ml Sdv 1 Ml) 0.5 mg IVP PRN PRN PRN Reason: Symptomatic bradycardia Clopidogrel Bisulfate (Clopidogrel 75 Mg Tablet) 75 mg PO DAILY [facility] Last Admin: 05/11/25 04:52 Dose: 75 mg Fentanyl (Fentanyl 50 Mcg/Ml Inj 2ml) 50 mcg IVP PRN PRN PRN Reason: PAIN Sodium Chloride (Sodium Chloride 0.9%) 1,000 mls @ 100 mls/hr IV .Q10H [facility] Last Admin: 05/10/25 21:48 Dose: 100 mls/hr Magnesium Hydroxide (Magnesium Hydroxide 30 Ml Udc) 30 ml PO DAILY PRN PRN Reason: CONSTIPATION Naloxone HCl (Naloxone 0.4 Mg/Ml Sdv) 0.1 mg IVP Q2M PRN PRN Reason: RESPIRATORY RATE < 8/MIN Nitroglycerin (Nitroglycerin 0.4 Mg Sublingual Tablet) 0.4 mg SUBLINGUAL Q5M PRN PRN Reason: CHEST PAIN Pantoprazole Sodium (Pantoprazole Dr 40 Mg Tablet) 40 mg PO DAILY [facility] Last Admin: 05/11/25 04:52 Dose: 40 mg Temazepam (Temazepam 15 Mg Capsule) 15 mg PO BEDTIME PRN PRN Reason: INSOMNIA Vitals/I&O/Wt Last Vital Signs Temp 98.2 F 05/11/25 04:00 Pulse 67 05/11/25 12:30 Resp 22 H 05/11/25 12:30 BP 114/56 05/11/25 12:30 Pulse Ox 95 05/11/25 12:30 O2 Del Method Nasal Cannula 05/11/25 09:04 O2 Flow Rate 5 05/11/25 09:04 05/10/25 05/11/25 05/11/25 22:59 06:59 14:59 Intake Total 240 / 1860 1400 / 3260 490 / 490 Output Total 200 / 400 350 / 750 Balance 40 / 1460 1050 / 2510 490 / 490 Weight last 48 hrs Weight 253 lb 8.505 oz Weight 220 lb Physical Exam Narrative: GENERAL: The patient is alert and oriented times three. Not in any acute distress. HEENT: No significant pallor, icterus or lymphadenopathy.Oral cavity: There are no mucous membrane lesions. NECK: Trachea appears to be central. No masses noted. No JVD or thyromegaly appreciated. RESPIRATORY: Chest is symmetrical. No intercostals muscle retraction or any accessory muscle activation. There is no chest wall tenderness. Breath sounds are heard bilaterally. No rales or rhonchi heard. No evidence of any consolidation. BREASTS: Deferred. HEART: The heart sounds are normal. No S3 or S4. Short systolic murmur in the lower sternal border. No diastolic murmurs.]. No pericardial rub ABDOMEN: No vessel pulsations or distention. No tenderness. No organomegaly appreciated. Bowel sounds are normally heard. : Deferred. RECTAL: Deferred. LYMPHATIC: No lymphadenopathy noted in the neck. EXTREMITIES: No edema or cyanosis. No clubbing. MUSCULOSKELETAL: No acute joint deformities or swelling SKIN: There are no significant rashes or ecchymosis NEUROPSYCHIATRIC: The patient is alert and oriented x3. Appears to be in a good mood. No tremors or rigidity noted. Data 05/11/25 04:50 05/11/25 04:50 Other Labs: Laboratory Last Values WBC 8.60 10^3/uL (3.29-11.43) 05/11/25 04:50 RBC 3.75 10^6/uL (3.85-5.65) L 05/11/25 04:50 Hgb 11.90 g/dL (11.27-16.99) 05/11/25 04:50 Hct 38.9 % (37-53) 05/11/25 04:50 MCV 103.7 fl (82-101) H 05/11/25 04:50 MCH 31.7 pg (27-33) 05/11/25 04:50 MCHC 30.6 g/dL (30-55) 05/11/25 04:50 RDW 15.8 % (12.1-15.1) H 05/11/25 04:50 Plt Count 96 10^3/cmm (157-399) L 05/11/25 04:50 MPV 10.9 fL (7.4-10.4) H 05/11/25 04:50 Neut % (Auto) 77.8 % 05/11/25 04:50 Lymph % (Auto) 12.4 % 05/11/25 04:50 [place] % (Auto) 6.9 % 05/11/25 04:50 Eos % (Auto) 2.0 % 05/11/25 04:50 Baso % (Auto) 0.6 % 05/11/25 04:50 Neut # (Auto) 6.69 10^3/uL (1.8-7.7) 05/11/25 04:50 Lymph # (Auto) 1.1 10^3/uL (0.8-4.8) 05/11/25 04:50 [place] # (Auto) 0.6 10^3/uL (0.2-0.9) 05/11/25 04:50 Eos # (Auto) 0.2 10^3/uL (0.0-0.8) 05/11/25 04:50 Baso # (Auto) 0.1 10^3/uL (0.0-0.1) 05/11/25 04:50 Nucleated RBC % (auto) 0 % 05/11/25 04:50 Nucleated RBCs # 0.0 /100WBC 05/11/25 04:50 APTT 46.3 SECONDS (23.9-36.7) H D 05/10/25 17:07 Specimen Type Venous 05/10/25 05:36 Mario Test N/a 05/10/25 05:36 VBG pH 7.42 (7.32-7.42) 05/10/25 05:36 VBG pCO2 44.0 mmHg (41-51) 05/10/25 05:36 VBG pO2 36.0 mmHg (25-40) 05/10/25 05:36 VBG HCO3 28.4 mmol/L (24-28) H 05/10/25 05:36 VBG Base Excess 3.3 mmol/L (-3.0-3.0) H 05/10/25 05:36 VBG Hematocrit 45.1 % (42-52) 05/10/25 05:36 Security Researcher ID [email or web address] 05/10/25 05:36 Sodium 141 mmol/L (136-145) 05/11/25 04:50 Potassium 4.3 mmol/L (3.5-5.1) 05/11/25 04:50 Chloride 108 mmol/L (98-107) H 05/11/25 04:50 Carbon Dioxide 26 mmol/L (22-29) 05/11/25 04:50 Anion Gap 11.3 (5-19) 05/11/25 04:50 BUN 19 mg/dL (8-23) 05/11/25 04:50 Creatinine 1.2 mg/dL (0.7-1.2) 05/11/25 04:50 GFR Calculation Not Reportable 05/11/25 04:50 Glucose 115 mg/dL (65-115) 05/11/25 04:50 POC Glucose 141 mg/dL (70-110) H 05/11/25 07:34 Serum Osmolality 298 mOsm/kg (278-305) 05/10/25 13:09 Calculated Osmolality 295 mOsm/kg (285-295) 05/11/25 04:50 Lactic Acid 1.8 mmol/L (0.5-2.2) 05/10/25 05:36 Calcium 8.0 mg/dL (8.5-10.5) L 05/11/25 04:50 Phosphorus 2.7 mg/dL (2.5-4.5) 05/10/25 05:36 Total Bilirubin 0.7 mg/dL (0.15-1.2) 05/10/25 05:36 AST 24 U/L (0-40) 05/10/25 05:36 ALT 16 U/L (0-41) 05/10/25 05:36 Alkaline Phosphatase 76 U/L (40-130) 05/10/25 05:36 Troponin T Baseline 174 ng/L (0-15) H* 05/10/25 05:36 Troponin T 120 Minute 248.0 ng/L (0-15) H 05/10/25 07:08 Delta Troponin T 74.0 ABS# (0-10) H* 05/10/25 07:08 C-Reactive Protein 8.5 mg/L (0.0-4.9) H 05/10/25 05:36 NT-Pro-B Natriuret Pep 1613 pg/mL (0-450) H 05/10/25 07:08 Total Protein 5.9 g/dL (6.6-8.7) L 05/10/25 05:36 Albumin 3.9 g/dL (3.5-5.2) 05/10/25 05:36 Globulin 2.0 g/dL (1.3-4.6) 05/10/25 05:36 Lipase 26 U/L (13-60) 05/10/25 05:36 Beta-Hydroxybutyrate Cancelled 05/10/25 05:36 Serum Ketones Negative (Negative) 05/10/25 05:36 Influenza A (PCR) Negative (Negative) 05/10/25 06:56 Influenza Type B (PCR) Negative (Negative) 05/10/25 06:56 RSV (PCR) Negative (Negative) 05/10/25 06:56 SARS-CoV-2 (PCR) Negative (Negative) 05/10/25 06:56 A&P Assessment and plan 1. Atherosclerosis of [place] coronary artery of [place] heart with unstable angina pectoris: Patient secondary features are suggestive of unstable angina complicated with non-ST elevation myocardial infarction and hypotension. Status postcardiac catheterization revealing high-grade ostial stenosis of the circumflex artery. Status post PCI, currently stable. Continue on the current medications. 2. Hypotension, unspecified hypotension type: Currently he is normotensive. May continue on the current treatment. 3. Uncontrolled type 2 diabetes mellitus with hyperglycemia: The blood sugar seems to be under control. 4. ERUM on CPAP: Patient is known to have obstructive sleep apnea. Patient is on CPAP. Importance of compliance with this treatment was discussed. The cardiovascular implications also were discussed. Advised to continue on the current treatment measures. Plan: Chronic kidney disease-kidney function seems to be better COPD Dyslipidemia If the patient continues to remain stable, may be discharged home today. Follow-up appointment [facility] in 2 weeks Patient will be seen by me in the office in 2 months Patient is advised to continue the medications as mentioned above. The importance of compliance to diet, medications and exercise were discussed. In the event of the patient developing chest pain ,unusual palpitations or any new symptoms, is advised to contact me or come to the hospital. PDMP PDMP Reviewed: Not Reviewed Attestations Medical Necessity Statement*: Possible discharge home today Coding Level of Care Code 98828 Diagnoses Atherosclerosis of [place] coronary artery of [place] heart with unstable angina pectoris I25.110 [place] vs. transplanted heart: [place] heart Hypotension, unspecified hypotension type I95.9 Hypotension type: unspecified hypotension type Uncontrolled type 2 diabetes mellitus with hyperglycemia E11.65 Glycemic state: with hyperglycemia ERUM on CPAP G47.33
--- NOTE | 2025-05-11 14:00 | P.DS_ITS ---
Discharge Providers Date of Admission: 05/10/25 07:56 Date of Discharge: May 11, 2025 Attending Provider at Admission: Luis Alberto MD Attending Provider at Discharge: Luis Alberto MD Primary Care Provider: Radha Blevins MD Diagnoses at Discharge Discharge Diagnosis 1. Acute non-ST elevation myocardial infarction (NSTEMI): 2. Hypotension, unspecified hypotension type: 3. Atherosclerosis of [place] coronary artery of [place] heart with unstable angina pectoris: 4. Uncontrolled type 2 diabetes mellitus with hyperglycemia: 5. ERUM on CPAP: 6. Chronic obstructive pulmonary disease, unspecified COPD type: Reason for Visit Reason for Visit: Atypical chest pain Brief History: Patient presented to the ER with some nonspecific symptoms, found to have elevated troponin. Code was called for consulted. He was admitted and taken straight to the left heart catheter where cardiology discovered a Proximal circumflex artery has severe 80 to 90% stenosis during the PCI, and inserted a coronary stent. Hospital Course Hospital Course Patient was thereafter admitted to the ICU,, and monitored closely. Other symptoms were treated empirically. Other concomitant chronic medical problems were treated with home medications, as adjusted. Given resolution of symptoms, and stable chronic problems, patient was therefore recommended by cardiology for discharge. Physical Exam Narrative: General: Awake and alert patient. Resp: No obvious respiratory distress or difficulty breathing. Skin: No obvious rashes or new skin lesions. All other physical findings essentially within normal limits. Discharge Data Studies Completed and Pending Completed Studies During Hospitalization Category Date Time Status XR chest 1V portable [id number] Stat Exams 05/10/25 05:11 Completed Pending at discharge Category Date Time Status PRESIDENT + PUBLISHER request for service Routine Exams 05/10/25 09:03 Taken Platelet Count Q2D Lab 05/12/25 04:00 Ordered Platelet Count Q2D Lab 05/14/25 04:00 Ordered VBG [Venous Blood Gas] Stat Lab 05/10/25 05:36 Results Radiology Impressions Chest X-Ray 05/10/25 05:11 IMPRESSION: No acute abnormality. The opacity at the left lung base is unchanged since 10/22/2024 and therefore presumably chronic. Vitals Last Vital Signs Temp 98.2 F 05/11/25 04:00 Pulse 67 05/11/25 12:30 Resp 22 H 05/11/25 12:30 BP 114/56 05/11/25 12:30 Pulse Ox 95 05/11/25 12:30 O2 Del Method Nasal Cannula 05/11/25 09:04 O2 Flow Rate 5 05/11/25 09:04 Discharge Plan Discharge Patient Disposition: Home Condition: Stable Prescriptions: New aspirin 81 mg Tablet,Delayed Release (Dr/Ec) 81 mg PO DAILY Qty: 100 0RF Continued furosemide [Lasix] 20 mg tablet 20 mg PO QDAY MDD Mayh take ngozi daily PRN Qty: 30 5RF folic acid 1 mg Tablet See Rx Instructions .ROUTE .COMPLEX Rx Instructions: tAKE 1 Tablet by mouth 2 times a week Jardiance 25 mg Tablet 25 mg PO DAILY pioglitazone 30 mg Tablet 30 mg PO DAILY fluticasone furoate-vilanterol [Breo Ellipta] 100-25 mcg/dose blister with device 1 inh inhalation DAILY Qty: 60 0RF Spiriva Respimat 1.25 mcg/actuation mist 2 inh inhalation DAILY Qty: 4 0RF insulin glargine [Lantus U-100 Insulin] 100 unit/mL solution 16 unit SUBCUT QAM Qty: 5 0RF insulin aspart U-100 [Novolog FlexPen U-100 Insulin] 100 unit/mL (3 mL) insulin pen See Protocol SUBCUT TID MDD 20 Qty: 15 0RF Protocol: Insulin Corrective High-Dose Regimen Condition: Fingerstick Blood Glucose Dose/Route: Insulin Units Condition: 141-180 mg/dl Dose/Route: 2 units/SQ Condition: 181-220 mg/dl Dose/Route: 4 units/SQ Condition: 221-260 mg/dl Dose/Route: 6 units/SQ Condition: 261-300 mg/dl Dose/Route: 8 units/SQ Condition: 301-350 mg/dl Dose/Route: 10 units/SQ Condition: 351-400 mg/dl Dose/Route: 12 units/SQ Condition: greater than 400 mg/dl Dose/Route: 14 units/SQ Rx Instructions: subcutaneously; diclofenac sodium 1 % Gel 2 g TOPICAL QID Rx Instructions: apply to single elbow, wrist or hand; for hand includes palm/fingers/back of hand methocarbamol 500 mg Tablet 500 mg PO TID PRN (Reason: Pain) potassium chloride 10 mEq Tablet Extended Release 20 meq PO DAILY tamsulosin 0.4 mg Capsule 0.4 mg PO QPM glucose 4 gram Tablet,Chewable 16 g PO PRN PRN (Reason: LOW BLOOD SUGAR ) Rx Instructions: until symptoms of low blood sugar are controlled metoprolol succinate 25 mg tablet extended release 24 hr 12.5 mg PO DAILY atorvastatin 80 mg Tablet 80 mg PO QPM Qty: 30 0RF clopidogrel [Plavix] 75 mg tablet 75 mg PO DAILY Qty: 30 0RF Director Industrial OK for DC: Cardiology Discharge Order = DC NOW: Discharge Order (Routine); Ordered 05/11/25 Ordered By: Luis Alberto Referrals: Radha Blevins MD [Primary Care Provider, Family Practice] - 05/26/25 11:00 am Lucita Salter FNP [Nurse Practitioner, Cardiology] - 06/01/25 4:00 pm Discharge Diet: Cardiac and Diabetic Discharge Activity: Resume usual activity and Increase activity as tolerated Patient Instructions: Aspirin (By mouth), Coronary Intravascular Stent Placement (DC), COPD Stoplight, Chest Pain Stoplight, Opioid Safety, Post Angiogram Home Care Instructions, Patient Portal & Mukesh Instructions Activity Restrictions/Additional Instructions: 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 Follow-up with the PCP within the next 2 to 4 weeks/as needed. Discharge Attestations Time Spent in Discharge Care*: less than 30 min Status at Discharge: Cognitive status at discharge: cognitively intact , Behavioral status at discharge: cooperative , Quality Metrics Clinical Quality Measures [ Acute Myocardial Infaction { Clinical Trial Participant: Yes; Contraindication to aspirin: None; Aspirin prescribed; Contraindication to statin: None; Statin prescribed; Contraindication to PCI: None; PCI performed; Contraindication to Fibrinolytics: Alternative treatment initiated}] Coding Level of Care Code Acute Code for [facility] Diagnoses Acute non-ST elevation myocardial infarction (NSTEMI) I21.4 Hypotension, unspecified hypotension type I95.9 Hypotension type: unspecified hypotension type Atherosclerosis of [place] coronary artery of [place] heart with unstable angina pectoris I25.110 [place] vs. transplanted heart: [place] heart Uncontrolled type 2 diabetes mellitus with hyperglycemia E11.65 Glycemic state: with hyperglycemia ERUM on CPAP G47.33 Chronic obstructive pulmonary disease, unspecified COPD type J44.9
--- NOTE | 2025-05-11 15:55 | PC.NURSE ---
All dc instructions educated to patient iv d/c, significant other transported patient home left 1500
== END 2025-05-11 15:00 | disposition home or self-care (01) | DRG 322 ==
LOC: ER 07:17 → CSU 07:56 → ICU 10:56
PROVIDERS: Clinical Nurse Specialist Acute Care; Internal Medicine; Student in an Organized Health Care Education/Training Program; Admitting Provider Family Medicine; Emergency Provider Family Medicine; PCP Family Medicine; Visit Provider Family Medicine
PROC: 027034Z Dilation of Coronary Artery, One Artery with Drug-eluting Intraluminal Device, Percutaneous Approach (ICD-10-PCS; principal; 2025-05-10 09:30)
PROC: 027034Z Dilation of Coronary Artery, One Artery with Drug-eluting Intraluminal Device, Percutaneous Approach (ICD-10-PCS; 2025-05-10 09:30)
DX: I21.4 Non-ST elevation (NSTEMI) myocardial infarction (principal); I13.0 Hypertensive heart and chronic kidney disease with heart failure and stage 1 through stage 4 chronic kidney disease, or unspecified chronic kidney disease; I95.9 Hypotension, unspecified; I25.10 Atherosclerotic heart disease of native coronary artery without angina pectoris; E11.65 Type 2 diabetes mellitus with hyperglycemia; E11.40 Type 2 diabetes mellitus with diabetic neuropathy, unspecified; E11.22 Type 2 diabetes mellitus with diabetic chronic kidney disease; N18.2 Chronic kidney disease, stage 2 (mild); I50.9 Heart failure, unspecified; G47.33 Obstructive sleep apnea (adult) (pediatric); J44.9 Chronic obstructive pulmonary disease, unspecified; R19.7 Diarrhea, unspecified; R11.2 Nausea with vomiting, unspecified; I25.5 Ischemic cardiomyopathy; E78.00 Pure hypercholesterolemia, unspecified; I35.0 Nonrheumatic aortic (valve) stenosis; I44.4 Left anterior fascicular block; I25.2 Old myocardial infarction; Z79.51 Long term (current) use of inhaled steroids; Z79.4 Long term (current) use of insulin; Z79.02 Long term (current) use of antithrombotics/antiplatelets; Z87.442 Personal history of urinary calculi; Z99.89 Dependence on other enabling machines and devices; Z95.1 Presence of aortocoronary bypass graft; Z99.81 Dependence on supplemental oxygen
CPT/HCPCS: 36415; 36416; 71045; 80048; 80053; 82009; 82803; 82962; 83605; 83690; 83880; 83930; 84100; 84484; 85025; 85347; 85730; 86140; 87637; 93005; 93459; 99152; 99153; C1725; C1769; C1874; C1887; C1894; C9606; J1200; J1644; J2250; J2405; J3010; J3490; J7030; J7040; J9999; Q9967

== ENCOUNTER → 2025-06-01 15:35 | Outpatient (BNVA) | payer OTHER, SELFPAY | PROVIDERS: PCP Family Medicine; Visit Provider Nurse Practitioner Family | DX: I25.709 Atherosclerosis of coronary artery bypass graft(s), unspecified, with unspecified angina pectoris (principal); I25.2 Old myocardial infarction; R06.00 Dyspnea, unspecified; N52.9 Male erectile dysfunction, unspecified; Z51.89 Encounter for other specified aftercare; Z87.891 Personal history of nicotine dependence; R06.02 Shortness of breath; I50.42 Chronic combined systolic (congestive) and diastolic (congestive) heart failure | CPT/HCPCS: 36415; 80048; 83880; 99214 ==